=== PATIENT | female | born 1975 | race Caucasian/White ===

== ENCOUNTER 2019-07-20 12:30 | Day surgery (SDC) | payer BC, SELFPAY ==
[2019-07-17 14:02] VITALS: BMI 49.1
--- NOTE | ~2019-07-20 | XR_ITS ---
EXAMINATION: XR chest port-a-cath/central DATE: 07/20/2019 14:44 INDICATION: Port placement. TECHNIQUE: A single frontal view of the chest was obtained. COMPARISON: Chest 2 views 02/02/2019 FINDINGS: There is mild elevation of right hemidiaphragm. There is mild atelectasis at right lung bas e. No pleural effusion or pneumothorax. The heart size is normal. There is a right internal jugular p ort with tip in superior vena cava. IMPRESSION: 1. Port tip in superior vena cava. 2. Mild elevation of right hemidiaphragm with mild atelectasis at right lung base. Reviewed, dictated and finalized at location B. STER HAND IMPRESSION: 1. Port tip in superior vena cava. 2. Mild elevation of right hemidiaphragm with mild atelectasis at right lung ba se.
--- NOTE | ~2019-07-20 | XR_ITS ---
EXAMINATION: XR fl guide central line place DATE: 07/20/2019 14:16 INDICATION: Port placement. TECHNIQUE: 2 fluoroscopic intraoperative views of the chest were obtained. I was not present. Fluoros copy exposure time was 28 seconds. COMPARISON: Chest 2 views 02/02/2019 FINDINGS: There is a right internal jugular port with tip in superior vena cava. IMPRESSION: 1. Port tip in superior vena cava. Reviewed, dictated and finalized at location B. RITY CONTROL ROOM OFFICER
--- NOTE | 2019-07-20 11:03 | WPDANESEPPF ---
Anes - Initial Pre Proc Eval Procedure: Operation Date: 07/20/19 12:30 Proposed Procedures p Insertion Port A Cath - Mina Sanon MD Date/Time: 07/20/19 11:03 Surgeon: Mina Sanon MD Pre Op Diagnosis: Melanoma Of Overlapping Sites Patient Data Age: 44 Gender: F Height: 5 ft 1 in Weight: 117.93 kg Allergies Allergy/AdvReac Type Severity Reaction Status Date / Time Penicillins Allergy Unknown Rash Verified 07/17/19 14:03 Sulfa (Sulfonamide Allergy Unknown Rash Verified 07/17/19 14:03 Antibiotics) Home Medications Medication Instructions Recorded Confirmed Type azathioprine 25 mg PO DAILY 07/17/19 07/17/19 History hydroxychloroquine 200 mg PO BID 07/17/19 07/17/19 History triamterene-hydrochlorothiazid 1 tablet PO DAILY 07/17/19 07/17/19 History Patient hx anesthesia problems: none Family hx anesthesia problems: none PMFSH Past Medical History Medical History Morbid obesity (Acute) STAS (obstructive sleep apnea) (Acute) SLE (systemic lupus erythematosus) (Acute) Social History Social History Smoking status: Never smoker Second hand tobacco smoke exposure: No Alcohol intake: current Gender identity (if verbalized by the patient): Female Spiritual care concerns: No Anes - Eval Final PreProcedure Day of Procedure 07/20/19 11:03 Patient weight: morbidly obese Heart: regular rate and rhythm Lungs: clear to auscultation Airway: Mallampati scale class II Neurological: alert and oriented Last oral intake: >/= 8 hours ASA classification: III Emergent: no Anesthetic plan: proceed Anesthesia type and monitoring: general GIVS and standard monitoring Informed Consent: The patient's anesthetic plan and its attendant risks and benefits were discussed with the patient/family/POA. Questions were solicited and answers provided to the satisfaction of the patient/family/POA.
[2019-07-20] MEDS: LACTATED RINGERS 1,000 ML 30 ML IV CONT ×2 (11:04→14:29)
[2019-07-20 11:07] VITALS: BP 110/61; PULSE 86; RESP 18; TEMP 37.1; O2SAT 98
[2019-07-20 12:20] VITALS: TEMP 37.1
[2019-07-20] MEDS: IBUPROFEN IV 800 MG/200 ML 800 MG/200 ML BAG 400 MG IVPB (12:20)
--- NOTE | 2019-07-20 13:00 | PM.HPGS ---
History of Present Illness History of Present Illness Consent: Risks, benefits, and alternatives of a placement of a Port-A-Cath have been discussed and questions answered. Patient agrees to proceed with procedure. Chief complaint: Melanoma Of Overlapping Sites Narrative: Mara Us is a 44 year old female with stage IVB, and 1 M0 stage IIIC malignant melanoma with Breslow thickness of 6 mm along with ulceration status post excision of left upper back lesion in May of 2019. A sentinel lymph node biopsy was done along with a left axillary node dissection. Wide excision margins of 2.5 cm were confirmed. Patient presents now for placement of a Port-A-Cath to be use for adjuvant immunotherapy. Review of Systems Constitutional: Constitutional: Reports no additional constitutional complaints, Reports fatigue and Denies malaise Eyes: Eyes: Denies change in vision and Denies loss of vision ENT: Reports hearing normal, Denies change in voice, Denies dizziness, Denies hoarseness and Denies sore throat Cardiovascular: Cardiovascular: Denies chest pain, Denies diaphoresis, Denies leg edema, Denies palpitations and Denies dyspnea Comments: Patient has known hypertension as taking Dyazide. Respiratory: Respiratory: Denies cough, Denies dyspnea and Denies wheezing Gastrointestinal: Gastrointestinal: Denies hematochezia, Denies change in bowel habits and Denies heartburn Genitourinary: Genitourinary: Denies urinary frequency and Denies urinary incontinence Musculoskeletal: Musculoskeletal: Denies neck pain Comments: Patient has lupus and is taking hydroxychloroquine and azathioprine for this. Integumentary/Breasts: Comments: Patient has occasional crusting skin lesions Patient had the melanoma on her left upper back as noted above in history of present illness. Neurologic: Reports Normal hearing present, Denies confusion, Denies dizziness, Denies loss of vision, Denies memory loss and Denies seizure-like activity Psychiatric: Psychiatric: Denies confusion, Denies depression and Denies memory loss Endocrine: Endocrine: Denies cold intolerance and Reports fatigue Hematologic/Lymphatic: Hematologic/Lymphatic: Denies easy bleeding and Denies easy bruising Allergic/Immunologic: Allergic/Immunologic: Denies wheezing PMFSH Past Medical History Medical History Morbid obesity (Acute) STAS (obstructive sleep apnea) (Acute) SLE (systemic lupus erythematosus) (Acute) Social History Social History Smoking status: Never smoker Second hand tobacco smoke exposure: No Alcohol intake: current Gender identity (if verbalized by the patient): Female Spiritual care concerns: No Meds Home Medications and Allergies Home Medications Medication Instructions Recorded Confirmed Type azathioprine 25 mg PO DAILY 07/17/19 07/17/19 History hydroxychloroquine 200 mg PO BID 07/17/19 07/17/19 History triamterene-hydrochlorothiazid 1 tablet PO DAILY 07/17/19 07/17/19 History Allergies Allergy/AdvReac Type Severity Reaction Status Date / Time Penicillins Allergy Unknown Rash Verified 07/17/19 14:03 Sulfa (Sulfonamide Allergy Unknown Rash Verified 07/17/19 14:03 Antibiotics) Vital Signs Vital Signs - 24 hr 07/20/19 11:07 07/20/19 12:20 Temperature 37.1 C 37.1 C Pulse Rate 86 Respiratory Rate 18 Blood Pressure 110/61 Pulse Oximetry 98 Exam Const: General: cooperative, healthy appearing, no acute distress, well developed and alert; No confused Nutritional Appearance: well nourished Orientation/consciousness: oriented x3 and No confused Limitations: no limitations Other: Obese, BMI 46 HENMT: Head: normal to inspection, normocephalic and atraumatic Ears: hearing grossly normal bilaterally General nose exam: external nose normal Face and sinus: no edema Mouth: Yes oral mucosae normal and Yes lip arcelia
[2019-07-20] MEDS: ceFAZolin 2 GM/D5W 50 ML 2 GM/50 ML BAG IVPB (13:15)
[2019-07-20] MEDS: BUPIVACAINE/EPINEPHRINE 0.5% 30 ML VIAL 20 ML INFILTRATE (13:49)
[2019-07-20] MEDS: HEPARIN SODIUM 5,000 UNITS/ML VIAL 562000 UNITS IRRIGATION (13:52)
[2019-07-20 14:29] VITALS: BP 119/65; PULSE 70; RESP 15
--- NOTE | 2019-07-20 14:30 | PM.PROC ---
Date of procedure: 07/20/19 Pre-op diagnosis: Melanoma Of Overlapping Sites Stage III malignant melanoma of the mid upper back left side Poor peripheral vascular access Post-op diagnosis: same Procedure performed: Placement of Port-A-Cath (right internal jugular approach) Description of procedure: Patient was seen and marked in the pre-op area prior to coming to the OR. Patient was brought to the operating room. She was placed supine on the operating table and general IV sedation was induced. The nurse emergency manager provided oxygen and GIVS sedation. Because of history of obstructive sleep apnea for this patient an LMA was used. Patient's head was carefully turned to the left side while in the supine position and the patient's entire neck and anterior chest on both sides was prepped and draped in the usual sterile fashion. Following this the appropriate time-out was completed confirming procedure and patient. We confirmed that all the needed equipment was present in the room. Following this the ultrasound probe was draped into the field and using the probe we carefully identified the carotid artery and jugular vein on the right neck. I marked the skin directly over the Rt. internal jugular vein. Following this, using the continuous ultrasound guidance, a Cook needle was placed through the skin into this vein. I then was able to draw back good dark blood. Once this was completed a guidewire using a J-tip was advanced through the needle and then the needle and the guidewire cover were withdrawn. C-arm fluoroscopy was used to confirm that the guidewire was nicely in the venous system. Once this was confirmed with the C - arm I preceded on by making the pocket for the port on the patient's anterior right chest approximately 3 centimeters below the clavicle overlying the chest wall. Local anesthetic was infiltrated into the skin where there was a transverse incision marked out. Incision was made and we made a pocket inferior to the incision with just a little dissection superior. The Smart port was tried in the pocket and seemed to fit well. Following this the catheter which had been placed on a tunneling device was tunneled from the port site on the anterior right chest up to the right neck where a small incision had been made with an #11 blade knife. Then the catheter was pulled through so that we would have 15 centimeters to put into the central venous system once the dilation took place. Following this we placed the dilator and sheath over the guidewire in the jugular vein and carefully dilated the tract into the central venous system. The guidewire and dilator were then removed, carefully covering the end of the sheath to prevent air embolus. The end of the catheter which had been cut off straight across and the tip checked was then inserted into the sheath and into the neck. I then carefully pulled the 2 arms of the tear-away sheath away as the first assistant held the catheter in position with a DeBakey forceps. Following this we checked the position of the catheter with C-arm fluoroscopy confirming that the tip seemed to be in the distal superior vena cava near the junction with the right atrium. I felt that it was in good position and so the rest of the catheter was pulled down toward the feet into the port site. We then measured to the appropriate position to cut the catheter to attach it to the port stem. Then the connector sealing device for the catheter port was placed onto the catheter and then the catheter cut to the appropriate length and inserted onto the stem of the port. Then the connector was advanced onto the stem over the catheter sealing it to the port. A single 3- 0 Prolene suture was also used during this to suture the connector to the port and to the underlying musculature. Following this at one other site the port was sutured to the underlying musculature with the 3-0 Proline. Both prior to connecting the catheter to the port and then using a st
[2019-07-20 14:55] VITALS: BP 124/70; PULSE 73; RESP 16
== END 2019-07-20 16:00 | disposition home or self-care (01) ==
PROVIDERS: Visit Provider Surgery
PROC: (CPT 36561; principal; 2019-07-20 12:30)
DX: C43.59 Malignant melanoma of other part of trunk (principal); I87.2 Venous insufficiency (chronic) (peripheral); M32.9 Systemic lupus erythematosus, unspecified; G47.33 Obstructive sleep apnea (adult) (pediatric); E66.01 Morbid (severe) obesity due to excess calories; Z68.42 Body mass index [BMI] 45.0-49.9, adult
CPT/HCPCS: 36561; 77001; C1788; J0690; J1100; J1644; J1741; J2250; J2405; J2704; J3010; J7030; J7120

== ENCOUNTER 2019-10-06 13:04 | Outpatient (CLI) | payer BC, SELFPAY ==
--- NOTE | ~2019-10-06 | US_ITS ---
EXAMINATION: US venous doppler UE EXAM DATE: 10/06/2019 14:50 INDICATION: Left arm swelling. TECHNIQUE: Multiple grayscale, color flow, Doppler sonographic images of the left upper extremity vei ns obtained by technologist. Compression was performed where able. There is no prior study for nicole sloan. FINDINGS: Left upper extremity: Jugular vein: ------------> Normal. Subclavian vein: --------> Normal. Axillary vein:------------> Normal. Brachial vein:-----------> Normal. Basilic vein: ------------> Normal. Cephalic vein: ----------> Normal. Radial vein: ------------> Normal. Ulnar vein: > Normal. IMPRESSION: No deep venous thrombosis of the left upper extremity. Reviewed, dictated and finalized at location A. AND FILLER ASSEMBLER
== END 2019-10-06 13:05 | disposition home or self-care (01) ==
PROVIDERS: PCP Family Medicine; Visit Provider Internal Medicine Hematology & Oncology
DX: M79.89 Other specified soft tissue disorders (principal)
CPT/HCPCS: 93971

== ENCOUNTER 2020-03-29 15:31 | Outpatient (CLI) | payer BC, SELFPAY ==
--- NOTE | ~2020-03-29 | US_ITS ---
EXAMINATION: US venous doppler [facility] DATE: 03/29/2020 16:02 INDICATION: Lower limb swelling. TECHNIQUE: Grayscale ultrasound images without and with compression and Doppler ultrasound images of the bilateral lower extremity veins were obtained. COMPARISON: Ultrasound 02/13/2015 FINDINGS: The visualized portions of right common femoral vein, profunda (deep) femoral vein, femoral vein, pop liteal vein, posterior tibial veins, and greater saphenous vein outflow are patent. The visualized portions of left common femoral vein, profunda femoral vein, femoral vein, popliteal v ein, posterior tibial veins, and greater saphenous vein outflow are patent. IMPRESSION: 1. No deep venous thrombosis. Reviewed, dictated and finalized at location A.
== END 2020-03-29 15:32 | disposition home or self-care (01) ==
PROVIDERS: PCP Family Medicine; Visit Provider Nurse Practitioner Adult Health
DX: R60.0 Localized edema (principal)
CPT/HCPCS: 93970

== ENCOUNTER 2020-08-12 14:44 | Outpatient (CLI) | payer BC, SELFPAY ==
--- NOTE | ~2020-08-12 | XR_ITS ---
XR chest 2V 08/12/2020 15:13 Indication: Malignant melanoma. Hypertension. Procedure: PA and lateral views of the chest Comparison: Comparison to multiple prior studies sequentially, with oldest reviewed study dated 05/31. Findings: Small right pleural effusion. Portacatheter tip in the SVC. Right basilar atelectasis. Elev ated right diaphragm appears chronic. No pneumothorax. No acute osseous abnormality. There are surgic al clips overlying the left axilla. Impression: 1: Right basilar atelectasis with small right effusion. 2: Chronic elevation of the right diaphragm, consider phrenic nerve paralysis. Reviewed, dictated and finalized at location A. NCE AND ADMINISTRATION MANAGER Impression: 1: Right basilar atelectasis with small right effusion. 2: Chronic elevation of the right diaphragm, consider phrenic nerve paralysis.
[2020-08-12 15:37] LABS: Basophils Percent Auto 0.7 % (0.2-1.2); Eosinophils Absolute Auto 0.1 K/mm3 (0-0.3); Eosinophils Percent Auto 1.7 % (0-4.4); Hematocrit 40.1 % (37.0-47.0); Hemoglobin 12.4 g/dL (12.0-15.0); Immature Granulocyte Absolute 0.04 K/mm3 (0.00-0.031); Immature Granulocyte Percent A 0.9 % (0-0.5); Lymphocytes Absolute Auto 0.82 K/mm3 (0.9-3.2); Lymphocytes Percent Auto 19.3 % (18.3-44.2); Mean Corpuscular HGB Conc 30.9 g/dl (32-36); Mean Corpuscular Hemoglobin 24.8 pg (26-34); Mean Corpuscular Volume 80.4 fl (80-100); Mean Platelet Volume 10.4 fl (7.4-10.4); Monocytes Absolute Auto 0.5 K/mm3 (0.1-0.6); Monocytes Percent Auto 10.6 % (2.6-8.5); Neutrophils Absolute Auto 2.8 K/mm3 (1.3-6.7); Neutrophils Percent Auto 66.8 % (45.5-73.1); Platelet Count Result 182 k/mm3 (150-375); Red Blood Count 4.99 M/mm3 (4.2-5.4); Red Cell Distribution Width 17.8 % (11.5-14.5); White Blood Count 4.2 K/mm3 (4.5-10.0)
[2020-08-12 16:32] LABS: Lactate Dehydrogenase 344 U/L (313-618)
[2020-08-13 17:11] LABS: Alanine Aminotransferase 15 U/L (4-35); Albumin Level 3.3 g/dL (3.5-5.1); Alkaline Phosphatase 79 U/L (38-126); Anion Gap 5 mmol/L (8-16); Aspartate Amino Transferase 20 U/L (14-36); Bilirubin,Total 0.2 mg/dL (0.2-1.3); Blood Urea Nitrogen 17 mg/dL (7-17); Calcium 8.6 mg/dL (8.4-10.2); Carbon Dioxide 30 mmol/L (22-30); Chloride 105 mmol/L (98-107); Estimated Glomerular Filt Rate > 60; Glucose 133 mg/dL (65-105); Potassium 3.7 mmol/L (3.4-5.0); Sodium 140 mmol/L (137-145)
== END 2020-08-12 14:45 | disposition home or self-care (01) ==
LOC: ANHIMG 14:53
PROVIDERS: PCP Family Medicine; Visit Provider Internal Medicine Hematology & Oncology
DX: C43.8 Malignant melanoma of overlapping sites of skin (principal); R91.8 Other nonspecific abnormal finding of lung field
CPT/HCPCS: 36415; 71046; 80053; 83615; 85025

== ENCOUNTER 2021-01-10 15:31 | Outpatient (CLI) | payer BC, SELFPAY ==
--- NOTE | ~2021-01-10 | US_ITS ---
EXAMINATION: US venous doppler [facility] DATE: 01/10/2021 16:00 INDICATION: Left lower limb pain. TECHNIQUE: Grayscale ultrasound images without and with compression and Doppler ultrasound images of the left lower extremity veins were obtained. COMPARISON: Ultrasound 03/29/2020 FINDINGS: The visualized portions of left common femoral vein, profunda (deep) femoral vein, femoral vein, popl iteal vein, peroneal veins, posterior tibial veins, and greater saphenous vein outflow are patent. IMPRESSION: 1. No deep venous thrombosis. Reviewed, dictated and finalized at location B.
== END 2021-01-10 15:32 | disposition home or self-care (01) ==
PROVIDERS: PCP Family Medicine; Visit Provider Family Medicine
DX: M79.605 Pain in left leg (principal); M79.89 Other specified soft tissue disorders
CPT/HCPCS: 93971

== ENCOUNTER 2021-01-11 07:25 | Outpatient (CLI) | payer BC, SELFPAY ==
[2021-01-11 08:16] LABS: Basophils Percent Auto 0.8 % (0.2-1.2); Eosinophils Absolute Auto 0.1 K/mm3 (0-0.3); Eosinophils Percent Auto 2.8 % (0-4.4); Hemoglobin 12.7 g/dL (12.0-15.0); Immature Granulocyte Absolute 0.02 K/mm3 (0.00-0.031); Immature Granulocyte Percent A 0.5 % (0-0.5); Lymphocytes Absolute Auto 0.66 K/mm3 (0.9-3.2); Mean Corpuscular HGB Conc 30.2 g/dl (32-36); Mean Corpuscular Hemoglobin 24.9 pg (26-34); Mean Corpuscular Volume 82.2 fl (80-100); Mean Platelet Volume 10.4 fl (7.4-10.4); Monocytes Absolute Auto 0.5 K/mm3 (0.1-0.6); Monocytes Percent Auto 11.6 % (2.6-8.5); Neutrophils Absolute Auto 2.6 K/mm3 (1.3-6.7); Neutrophils Percent Auto 67.3 % (45.5-73.1); Platelet Count Result 222 k/mm3 (150-375); Red Blood Count 5.11 M/mm3 (4.2-5.4); Red Cell Distribution Width 16.2 % (11.5-14.5); White Blood Count 3.9 K/mm3 (4.5-10.0)
[2021-01-11 08:26] LABS: Alanine Aminotransferase 22 U/L (4-35); Alkaline Phosphatase 85 U/L (38-126); Anion Gap 2 mmol/L (8-16); Aspartate Amino Transferase 28 U/L (14-36); Bilirubin,Total 0.5 mg/dL (0.2-1.3); Blood Urea Nitrogen 24 mg/dL (7-17); Calcium 9.1 mg/dL (8.4-10.2); Carbon Dioxide 39 mmol/L (22-30); Chloride 98 mmol/L (98-107); Estimated Glomerular Filt Rate > 60; Glucose 114 mg/dL (65-105); Potassium 3.9 mmol/L (3.4-5.0); Sodium 139 mmol/L (137-145)
[2021-01-11 08:35] LABS: NT Pro B Type Natriuretic Pept 37 pg/mL (5-100)
== END 2021-01-11 07:26 | disposition home or self-care (01) ==
PROVIDERS: PCP Family Medicine; Visit Provider Nurse Practitioner
DX: R60.9 Edema, unspecified (principal)
CPT/HCPCS: 36415; 80053; 83880; 85025

== ENCOUNTER 2021-02-26 07:10 | Outpatient (CLI) | payer BC, SELFPAY ==
--- NOTE | ~2021-02-26 | XR_ITS ---
EXAMINATION: XR chest 2V DATE: 02/26/2021 07:35 INDICATION: Port-A-Cath assessment TECHNIQUE: PA and lateral views of the chest are obtained. COMPARISON: 08/12/2020, 07/20/2019 FINDINGS: The lungs are free of acute opacities. There is no pleural effusion or pneumothorax. The ca rdiomediastinal silhouette is normal. There is moderate thoracic spondylosis. A right internal jugula r Port-A-Cath ends with its tip at the superior cavoatrial junction. The hub of the port slightly rot ated in the port pocket when compared to the port insertion radiograph from 2019. Surgical clips are noted in the left axilla. IMPRESSION: 1. No acute cardiopulmonary abnormality. 2. Slight rotation of the port hub in the port pocket when compared to the insertion radiograph from 2019. Reviewed, dictated and finalized at location B. IMPRESSION: 1. No acute cardiopulmonary abnormality. 2. Slight rotation of the port hub in the port pocket when compared to the inse rtion radiograph from 2019.
== END 2021-02-26 07:11 | disposition home or self-care (01) ==
PROVIDERS: PCP Family Medicine; Visit Provider Internal Medicine Hematology & Oncology
DX: C43.8 Malignant melanoma of overlapping sites of skin (principal); M47.814 Spondylosis without myelopathy or radiculopathy, thoracic region
CPT/HCPCS: 71046

== ENCOUNTER 2021-03-19 08:22 | Outpatient (CLI) | payer BC, SELFPAY ==
[2021-03-19 09:31] LABS: Basophils Percent Auto 0.9 % (0.2-1.2); Eosinophils Absolute Auto 0.1 K/mm3 (0-0.3); Eosinophils Percent Auto 3.7 % (0-4.4); Hematocrit 41.2 % (37.0-47.0); Hemoglobin 12.3 g/dL (12.0-15.0); Immature Granulocyte Absolute 0.01 K/mm3 (0.00-0.031); Immature Granulocyte Percent A 0.3 % (0-0.5); Lymphocytes Absolute Auto 0.69 K/mm3 (0.9-3.2); Lymphocytes Percent Auto 21.4 % (18.3-44.2); Mean Corpuscular HGB Conc 29.9 g/dl (32-36); Mean Corpuscular Hemoglobin 25.6 pg (26-34); Mean Corpuscular Volume 85.7 fl (80-100); Mean Platelet Volume 10.3 fl (7.4-10.4); Monocytes Absolute Auto 0.4 K/mm3 (0.1-0.6); Monocytes Percent Auto 12.4 % (2.6-8.5); Neutrophils Percent Auto 61.3 % (45.5-73.1); Platelet Count Result 219 k/mm3 (150-375); Red Blood Count 4.81 M/mm3 (4.2-5.4); Red Cell Distribution Width 15.7 % (11.5-14.5); White Blood Count 3.2 K/mm3 (4.5-10.0)
[2021-03-19 09:40] LABS: INR 0.9; Prothrombin Time 12.4 Seconds (11.1-14.7)
[2021-03-19 09:41] LABS: Partial Thromboplastin Time 28.6 SECONDS (22.3-36.8)
[2021-03-19 09:43] LABS: Anion Gap 5 mmol/L (8-16); Blood Urea Nitrogen 13 mg/dL (7-17); Calcium 8.6 mg/dL (8.4-10.2); Carbon Dioxide 32 mmol/L (22-30); Chloride 103 mmol/L (98-107); Estimated Glomerular Filt Rate > 60; Glucose 99 mg/dL (65-110); Potassium 4.4 mmol/L (3.4-5.0); Sodium 140 mmol/L (137-145)
== END 2021-03-19 08:23 | disposition home or self-care (01) ==
LOC: ANHSURGERY 08:26
PROVIDERS: PCP Family Medicine; Visit Provider Surgery
DX: Z01.818 Encounter for other preprocedural examination (principal)
CPT/HCPCS: 36415; 80048; 85025; 85610; 85730

== ENCOUNTER 2021-03-21 01:36 | Day surgery (SDC) | payer BC, SELFPAY ==
[2021-03-18 09:13] VITALS: BMI 47.6
[2021-03-21 08:37] VITALS: BP 156/92; PULSE 76; RESP 22; TEMP 36.3; O2SAT 96
[2021-03-21] MEDS: LACTATED RINGERS 1,000 ML 30 ML IV CONT (09:40)
--- NOTE | 2021-03-21 09:48 | WPDANESEPPF ---
Anes - Initial Pre Proc Eval Procedure: Operation Date: 03/21/21 10:30 Proposed Procedures p Removal Silva Cath - Mina Sanon MD Date/Time: 03/21/21 09:48 Surgeon: Mina Sanon MD Pre Op Diagnosis: malignant melanoma overlapping sites Patient Data Age: 45 Gender: F Height: 1.57 m Weight: 133.8 kg Last Vital Signs Temp 36.3 C L 03/21/21 08:37 Pulse 76 03/21/21 08:37 Resp 22 H 03/21/21 08:37 BP 156/92 H 03/21/21 08:37 Pulse Ox 96 03/21/21 08:37 Allergies Allergy/AdvReac Type Severity Reaction Status Date / Time Penicillins Allergy Unknown Rash Verified 03/21/21 09:18 Sulfa (Sulfonamide Allergy Unknown Rash Verified 03/21/21 09:18 Antibiotics) Home Medications Medication Instructions Recorded Confirmed Type hydroxychloroquine 200 mg PO BID 07/17/19 03/21/21 History triamterene-hydrochlorothiazid 1 tablet PO DAILY 07/17/19 03/21/21 History ferrous sulfate 325 mg (65 mg 325 mg PO BID 01/10/21 03/21/21 History iron) tablet cyanocobalamin (vitamin B-12) 1,000 mcg PO DAILY 03/18/21 03/18/21 History [Vitamin B-12] Patient hx anesthesia problems: none Family hx anesthesia problems: none PMFSH Past Medical History Medical History Essential (primary) hypertension Malignant melanoma of upper back (~05/2019) Melanoma 2019 STAS (obstructive sleep apnea) SLE (systemic lupus erythematosus) Surgical History Surgical History History of skin surgery melanoma - 06/22/2019 Hx of section (~2000) [place] teeth removed (~1989) Social History Social History Smoking status: Never smoker Second hand tobacco smoke exposure: No Alcohol intake: current Alcohol use details: Just every once in awhile Substance use: never Substance use type: does not use Living arrangements: with family Gender identity (if verbalized by the patient): Female Sexual Orientation (if Verbalized by the Patient): Straight or Heterosexual Spiritual care concerns: No Anes - Eval Final PreProcedure Day of Procedure 03/21/21 09:48 Patient weight: morbidly obese Heart: regular rate and rhythm Lungs: clear to auscultation Airway: Mallampati scale class II Neurological: alert and oriented Last oral intake: >/= 8 hours ASA classification: III Emergent: no Anesthetic plan: proceed Anesthesia type and monitoring: general GIVS and standard monitoring Informed Consent: The patient's anesthetic plan and its attendant risks and benefits were discussed with the patient/family/POA. Questions were solicited and answers provided to the satisfaction of the patient/family/POA.
--- NOTE | 2021-03-21 09:57 | WPDHPUPDATE1 ---
History and Physical Update Update Date/Time: 03/21/21 09:57 History and Physical has been reviewed, including an updated exam of the patient. There are NO changes in the patient's condition. Risks, benefits, and alternatives have been discussed and questions answered. Patient agrees to proceed with procedure.
--- NOTE | 2021-03-21 09:58 | PM.HPGS ---
History of Present Illness History of Present Illness Consent: Risks, benefits, and alternatives of removal of a Port-A-Cath have been discussed and questions answered. Patient agrees to proceed with procedure. Chief complaint: malignant melanoma overlapping sites Narrative: Mara Us is a 45 year old white female who has a history of a melanoma on her back. She subsequently underwent some type of infusion therapy. Dr. Mcalin is her primary medical oncologist. He is approved for her to have her port removed at this time. The risks benefits possible complications of this including bleeding infection have been described she seems understand wished to proceed. Although we could do it under local anesthetic she wishes to have some IV sedation at the time of removal. Review of Systems Constitutional: Constitutional: Reports no additional constitutional complaints, Reports fatigue and Denies malaise Eyes: Eyes: Denies change in vision and Denies loss of vision ENT: Reports Normal hearing present, Denies change in voice, Denies dizziness, Denies hoarseness and Denies sore throat Cardiovascular: Cardiovascular: Denies chest pain, Denies leg edema and Denies dyspnea Respiratory: Respiratory: Denies cough, Denies dyspnea and Denies wheezing Gastrointestinal: Gastrointestinal: Denies hematochezia, Denies change in bowel habits and Denies heartburn Genitourinary: Genitourinary: Denies urinary frequency and Denies urinary incontinence Neurologic: Reports Normal hearing present, Denies confusion, Denies dizziness, Denies loss of vision, Denies memory loss and Denies seizure-like activity Psychiatric: Psychiatric: Denies confusion, Denies depression and Denies memory loss Endocrine: Endocrine: Denies cold intolerance and Reports fatigue Hematologic/Lymphatic: Hematologic/Lymphatic: Denies easy bleeding and Denies easy bruising Allergic/Immunologic: Allergic/Immunologic: Denies wheezing PMFSH Past Medical History Medical History (Updated 03/21/21 @ 10:08 by Mina Sanon MD) Essential (primary) hypertension (Unknown) Malignant melanoma of upper back (~05/2019) Melanoma 2019 STAS (obstructive sleep apnea) SLE (systemic lupus erythematosus) (Unknown) Surgical History Surgical History History of skin surgery melanoma - 06/22/2019 Hx of section (~2000) [place] teeth removed (~1989) Social History Social History Smoking status: Never smoker Second hand tobacco smoke exposure: No Alcohol intake: current Alcohol use details: Just every once in awhile Substance use: never Substance use type: does not use Living arrangements: with family Gender identity (if verbalized by the patient): Female Sexual Orientation (if Verbalized by the Patient): Straight or Heterosexual Spiritual care concerns: No Meds Home Medications and Allergies Home Medications Medication Instructions Recorded Confirmed Type hydroxychloroquine 200 mg PO BID 07/17/19 03/21/21 History triamterene-hydrochlorothiazid 1 tablet PO DAILY 07/17/19 03/21/21 History ferrous sulfate 325 mg (65 mg 325 mg PO BID 01/10/21 03/21/21 History iron) tablet cyanocobalamin (vitamin B-12) 1,000 mcg PO DAILY 03/18/21 03/18/21 History [Vitamin B-12] Allergies Allergy/AdvReac Type Severity Reaction Status Date / Time Penicillins Allergy Unknown Rash Verified 03/21/21 09:18 Sulfa (Sulfonamide Allergy Unknown Rash Verified 03/21/21 09:18 Antibiotics) Vital Signs Vital Signs - 24 hr 03/21/21 08:37 Temperature 36.3 C L Pulse Rate 76 Respiratory Rate 22 H Blood Pressure 156/92 H Pulse Oximetry 96 Exam Const: General: cooperative, healthy appearing, no acute distress, well developed and alert; No confusion Nutritional Appearance: well nourished Orientation/consciousness: patient oriented x3 and N
[2021-03-21] MEDS: LIDO 2%/EPINEPHRINE 1:100,000 20 ML VIAL 9 ML INFILTRATE (10:51)
[2021-03-21 11:03] VITALS: BP 112/68; PULSE 80; RESP 14; O2SAT 93
--- NOTE | 2021-03-21 11:22 | P.OP_ITS ---
Procedure Note - Detailed Date of Procedure 03/21/21 Pre-op Diagnosis malignant melanoma overlapping sites Indwelling Port-A-Cath Post-op Diagnosis same Procedure Performed Removal of Silva-cath Surgeon Mina Sanon MD Assisted Living Executive Director none Anesthesia MAC and local (2% Xylocaine with Epi.) Indications Patient has had a Port-A-Cath in for chemotherapy in the past. Now no longer in use. Plant to remove under local anesthetic. Findings unremarkable smart port and catheter without clot on the end. Description of Procedure Prior to the procedure the patient was seen in the holding area and the area of proposed surgery was marked. All questions were answered and the patient wished to proceed with removal of the Port-A-Cath. The patient was brought to the operating room and placed supine. The entire right neck, chest, and shoulder were prepped with chlorhexidine. The area was draped off. Time-out was performed confirming patient and site of surgery. Following this a 15 blade knife was used to make incision directly on the scar from the previous port placement. This was done after infiltrating local anesthetic into the area of and inferior to the scar and into the area of the pocket containing the port to some degree using 1% xylocaine with epinephrine. Following this we carefully dissected down to the junction of the port and catheter. Bovie cautery with needle-tip was used to carefully incise the capsule around the port and free up the scar tissue around the junction of the port and catheter. Two Prolene sutures that were holding the port to the underlying fascia were carefully excised with a 15 blade knife and mosquito hemostats. Following this the port was brought up and out of the pocket. Then watching the patient's respirations I carefully removed the catheter in one smooth pull while applying pressure in the lower right neck area at the catheter exit site as the patient was breathing out. Pressure was held for 1 minute. I used Bovie cautery on some the subcutaneous tissues as we waited for good clotting. Again hemostasis was checked in the wound using Bovie cautery for superficial hemostasis in the subcutaneous tissues. Following this closure was obtained with 2 layers. I used buried subcutaneous sutures of 3-0 Vicryl in the subcutaneous layer followed by a running subcuticular closure of 4-0 Monocryl on the skin. Patient tolerated the procedure well. Estimated blood loss was 3 cc Sponge, needle, and instrument counts were correct at the end the procedure and patient was taken to the outpatient recovery area in good condition. Implants none Estimated Blood Loss 3 Drains No Packing No Pathology none sent Complications No immediate complications Condition stable Disposition same day
[2021-03-21 11:30] VITALS: BP 126/70; PULSE 73; RESP 16; O2SAT 94
[2021-03-21 12:00] VITALS: BP 142/77; PULSE 72; RESP 16; O2SAT 94
[2021-03-21 12:30] VITALS: BP 137/83; PULSE 86; RESP 16; O2SAT 94
== END 2021-03-21 12:34 | disposition home or self-care (01) ==
PROVIDERS: PCP Family Medicine; Visit Provider Surgery
PROC: (CPT 36589; principal; 2021-03-21 10:30)
DX: Z45.2 Encounter for adjustment and management of vascular access device (principal); Z85.820 Personal history of malignant melanoma of skin; I10 Essential (primary) hypertension; G47.33 Obstructive sleep apnea (adult) (pediatric); J45.909 Unspecified asthma, uncomplicated; R06.02 Shortness of breath; M32.9 Systemic lupus erythematosus, unspecified; E66.01 Morbid (severe) obesity due to excess calories; Z68.43 Body mass index [BMI] 50.0-59.9, adult
CPT/HCPCS: 36590; 36415; 80048; 85025; 85610; 85730; J2704; J7120

== ENCOUNTER 2021-10-20 13:08 | Inpatient (IN) | payer BC, SELFPAY ==
[2021-10-20] VITALS (24 sets, daily range): BP systolic 155–195; BP diastolic 78–125; PULSE 73–99; RESP 18–24; TEMP 36.8–37.1; O2SAT 81–98
--- NOTE | ~2021-10-20 | CT_ITS ---
EXAMINATION: CTA chest PE protocol DATE: 10/20/2021 18:57 INDICATION: Shortness of breath, COVID 19 TECHNIQUE: Computed tomography angiography (CTA) of the chest was performed with 100 mL Omnipaque-350 intravenous contrast timed to evaluate the pulmonary arteries. Coronal maximum intensity projection 3D-reconstructions were created by the technologist. The dose-length product (DLP) was 859.28 mGy-cm. Automated exposure control and iterative reconstruction technique were employed. COMPARISON: 02/06/2015 FINDINGS: The pulmonary arteries are well-opacified. No pulmonary embolism is identified. There are p atchy bilateral groundglass opacities of the lungs. There are small pleural effusions with a small am ount of fluid in the fissures. No pneumothorax is identified. No pathologically enlarged thoracic lym ph nodes are identified. The heart size is normal. There is moderate thoracic spondylosis. Calcified thyroid nodules measure up to 1.8 cm. IMPRESSION: 1. No pulmonary embolus identified. 2. Patchy groundglass opacities of the lungs which could reflect pneumonia and/or pulmonary edema. 3. Small pleural effusions. 4. Calcified thyroid nodules. Consider nonemergent thyroid ultrasound for risk stratification. Reviewed, dictated and finalized at location F. BUILDER IMPRESSION: 1. No pulmonary embolus identified. 2. Patchy groundglass opacities of the lungs which could reflect pneumonia and/ or pulmonary edema. 3. Small pleural effusions. 4. Calcified thyroid nodules. Consider nonemergent thyroid ultrasound for risk stratification.
--- NOTE | ~2021-10-20 | US_ITS ---
EXAMINATION:US venous doppler LE BI INDICATION:Leg edema TECHNIQUE: Multiple grayscale, color flow and Doppler images of the right and left lower extremity de ep venous systems were obtained and reviewed. COMPARISON:01/10/2021 FINDINGS: The common femoral, superficial femoral and popliteal veins demonstrate normal respiratory variation, augmentation and compressibility. Color flow is also seen within the posterior tibial, pe roneal, greater saphenous and profunda veins. IMPRESSION: 1: No lower extremity deep venous thrombosis. Reviewed, dictated and finalized at location B. OLL TECHNICIAN
--- NOTE | ~2021-10-20 | XR_ITS ---
EXAMINATION: XR chest 1V portable INDICATION: Cough, fever, shortness of breath TECHNIQUE: Portable AP chest at 1609 hours COMPARISON: 02/26/2021 FINDINGS: A right internal jugular Port-A-Cath has been removed. The heart size is upper limits of no rmal for technique. Diffuse interstitial and airspace opacities are present. There is no pleural effu ramonita or pneumothorax. There is chronic elevation of the right hemidiaphragm. IMPRESSION: 1. Diffuse interstitial and airspace opacities, consistent with pneumonia and/or pulmonary edema and/ or atelectasis. Reviewed, dictated and finalized at location F. WARE SUPPORT SPECIALIST IMPRESSION: 1. Diffuse interstitial and airspace opacities, consistent with pneumonia and/o r pulmonary edema and/or atelectasis.
--- NOTE | 2021-10-20 16:00 | ECG_ITS ---
Measurements Intervals [place] Rate: 69 P: 24 MS: 159 QRS: 22 QRSD: 81 T: 46 QT: 388 QTc: 416 Interpretive Statements SINUS RHYTHM BASELINE ARTIFACT- I, II, III, AVF, V3-V6 NORMAL ECG Electronically Signed On 10-20-2021 17:08:28 THERAPY TEACHER by Jerrod Vasquez D.O.
--- NOTE | 2021-10-20 16:33 | ED.SOB ---
HPI - SOB/Dyspnea General Chief Complaint: Shortness of Breath/Dyspnea Stated Complaint: shortness of breath Time Seen by Provider: 10/20/21 16:00 Source: RN notes reviewed History of Present Illness HPI Narrative: Patient presents emergency department from home for shortness of breath. Patient states that symptoms began approximately 4 days ago with a cough and a low-grade fever she states that she took it at home test for Covid today that came back positive she states that she was feeling more short of breath today so she came to the emergency department for further evaluation she denies any chest pain abdominal pain nausea vomiting or any other symptoms Related Data Home Medications Medication Instructions Recorded Confirmed hydroxychloroquine 200 mg PO BID 07/17/19 04/17/21 ferrous sulfate 325 mg (65 mg 325 mg PO BID 01/10/21 04/17/21 iron) tablet cyanocobalamin (vitamin B-12) 1,000 mcg PO DAILY 03/18/21 04/17/21 [Vitamin B-12] Allergies Allergy/AdvReac Type Severity Reaction Status Date / Time Penicillins Allergy Unknown Rash Verified 04/17/21 15:14 Sulfa (Sulfonamide Allergy Unknown Rash Verified 04/17/21 15:14 Antibiotics) Review of Systems Review of Systems: Gen.: Low-grade fever ENT: Denies congestion Respiratory: See HPI CV: Denies chest pain or palpitations GI: Denies abdominal pain nausea, emesis or diarrhea Musculoskeletal: Denies back pain or muscle pain Neuro: Denies numbness, tingling, weakness or focal weakness Skin: Denies rash Except as documented, all other systems reviewed and negative PMF Past Medical History Medical History Essential (primary) hypertension (Unknown) Malignant melanoma of upper back (~05/2019) Melanoma 2019 STAS (obstructive sleep apnea) SLE (systemic lupus erythematosus) (Unknown) Surgical History Surgical History (Updated 04/17/21 @ 15:16 by Izabella Paz) History of removal of Port-a-Cath 2020 History of skin surgery melanoma - 06/22/2019 Hx of section (~2000) [place] teeth removed (~1989) Social History Social History Smoking status: Never smoker Second hand tobacco smoke exposure: No Alcohol intake: current Alcohol use details: Just every once in awhile Substance use: never Substance use type: does not use Gender identity (if verbalized by the patient): Female Sexual Orientation (if Verbalized by the Patient): Straight or Heterosexual Spiritual care concerns: No Exam Narrative: APPEARANCE: No acute distress, nontoxic, resting in bed EYES: EOMI HEENT: Normocephalic, atraumatic, OMM RESPIRATORY: No respiratory distress Clear to auscultation bilaterally with no rhonchi wheezing or rales. CARDIOVASCULAR: Regular rate and rhythm without murmurs rubs or gallops. ABDOMINAL: Soft, nontender, nondistended, no rebound or guarding MUSCULOSKELETAl: Moves all extremities. No clubbing, cyanosis or edema. NEURO: Awake and alert. Following commands, speech normal, no focal deficits SKIN:: Warm, dry. No rashes lesions or abrasions PSYCHIATRIC: Normal affect/mood, Course Course Emergency Course: Patient with walking pulse ox in ED with oxygen saturations dropping down to 86 will admit at this time Discussed Dr. Prabhakar presentation work-up agrees with admission at this time request patient started on remdesivir also request antibiotics started Discussed with patient and family results of workup and diagnosis. Discussed need for admission. Patient and family understand and agree to current treatment plan Vital Signs Vital signs: Vital Signs Temperature 98.3 F 10/20/21 13:17 Pulse Rate 87 10/20/21 13:17 Respiratory Rate 22 H 10/20/21 13:17 Blood Pressure 186/106 H 10/20/21 13:17 Pulse Oximetry 94 10/20/21 13:17 Temperature 98.2 F 10/20/21 16:00 Pulse Rate 77 10/20/21 16:46 Respiratory
[2021-10-20 17:08] LABS: Basophils Percent Auto 0.4 % (0.2-1.2); Eosinophils Absolute Auto 0.1 K/mm3 (0-0.3); Eosinophils Percent Auto 2.1 % (0-4.4); Hematocrit 44.2 % (37.0-47.0); Hemoglobin 13.4 g/dL (12.0-15.0); Immature Granulocyte Absolute 0.02 K/mm3 (0.00-0.031); Immature Granulocyte Percent A 0.4 % (0-0.5); Lymphocytes Absolute Auto 0.75 K/mm3 (0.9-3.2); Lymphocytes Percent Auto 14.4 % (18.3-44.2); Mean Corpuscular HGB Conc 30.3 g/dl (32-36); Mean Corpuscular Volume 85.8 fl (80-100); Mean Platelet Volume 10.3 fl (7.4-10.4); Monocytes Absolute Auto 0.4 K/mm3 (0.1-0.6); Monocytes Percent Auto 7.1 % (2.6-8.5); Neutrophils Absolute Auto 3.9 K/mm3 (1.3-6.7); Neutrophils Percent Auto 75.6 % (45.5-73.1); Platelet Count Result 199 k/mm3 (150-375); Red Blood Count 5.15 M/mm3 (4.2-5.4); Red Cell Distribution Width 14.6 % (11.5-14.5); White Blood Count 5.2 K/mm3 (4.5-10.0)
[2021-10-20 17:20] LABS: Partial Thromboplastin Time 28.8 SECONDS (22.3-36.8); Prothrombin Time 12.8 Seconds (11.1-14.7)
[2021-10-20 17:21] LABS: Alanine Aminotransferase 40 U/L (4-35); Albumin Level 3.8 g/dL (3.5-5.1); Alkaline Phosphatase 106 U/L (38-126); Anion Gap 7 mmol/L (8-16); Aspartate Amino Transferase 39 U/L (14-36); Bilirubin,Total 0.8 mg/dL (0.2-1.3); Blood Urea Nitrogen 14 mg/dL (7-17); CRP 6.3 mg/dL (<1.0); Calcium 8.4 mg/dL (8.4-10.2); Carbon Dioxide 28 mmol/L (22-30); Chloride 105 mmol/L (98-107); Estimated CRCL calculation 103 ml/min; Estimated Glomerular Filt Rate > 60; Glucose 96 mg/dL (65-110); Lactate Dehydrogenase 449 U/L (313-618); Potassium 3.7 mmol/L (3.4-5.0); Sodium 140 mmol/L (137-145)
[2021-10-20 17:23] LABS: D Dimer 0.91 ug/mL (<0.48)
[2021-10-20] MEDS: ALBUTEROL SULFATE (*SP) AEROSOL 1 PUFF 2 PUFF INHALATION (18:10)
[2021-10-20] MEDS: ALBUTEROL SULFATE (*SP) INHALER 1 PUFF (18:10)
--- NOTE | 2021-10-20 18:34 | PC.NURSE ---
pt. unable to provide urine sample due to voiding already. states she will consent to not being . CT contacted.
--- NOTE | 2021-10-20 19:17 | PM.IMHP ---
H&P: HPI History of Present Illness Date/Time: 10/20/21 19:17 Chief Complaint: Shortness of breath Narrative: This is a 46-year-old female with past medical history significant for morbid obesity, obstructive sleep apnea, SLE, melanoma, hypertension. Patient presented to the emergency room due to shortness of breath, cough ,body ,aches and pains, chills, fevers, rigors, for the last 3 days or so patient decided to test for COVID with with home COVID kit and tested positive. Upon arrival to the emergency room patient was found to be saturating in the low 80% and was placed on 1 L by nasal cannula of oxygen and her oxygen saturation remained in the high 90s. Preliminary workup was significant for CT PE protocol was negative for acute pulmonary embolism but did show ground-glass opacity. Patient is being admitted for further evaluation management and treatment. Review of Systems Review of Systems: Shortness of breath, body. Tested positive for COVID with home kit as Constitutional: Constitutional: Reports body ache(s), Reports chills, Reports fever(s) and Reports malaise Eyes: Eyes: Denies change in vision ENT: Denies dysphagia, Denies vertigo, Denies nasal congestion, Denies nasal discharge, Denies nasal obstruction and Denies odynophagia Cardiovascular: Cardiovascular: Denies claudication, Denies leg edema, Denies radiating jaw, neck or arm pain, Denies palpitations, Denies dyspnea on exertion, Denies orthopnea and Denies paroxysmal nocturnal dyspnea Respiratory: Respiratory: Reports dyspnea Gastrointestinal: Gastrointestinal: Denies abdominal pain, Denies nausea and Denies vomiting Genitourinary: Genitourinary: Denies dysuria Musculoskeletal: Musculoskeletal: Reports myalgias Integumentary/Breasts: Skin/Breast: Denies rash Neurologic: Denies focal weakness and Denies Sensory deficit (Neuro) Psychiatric: Psychiatric: Reports no additional psychiatric complaints and Reports as per HPI Endocrine: Endocrine: Denies cold intolerance, Denies flushing, Denies heat intolerance, Denies polyphagia, Denies polydipsia and Denies palpitations Hematologic/Lymphatic: Hematologic/Lymphatic: Reports no additional hematologic/lymphatic complaints and Reports as per HPI Allergic/Immunologic: Allergic/Immunologic: Reports no additional allergic/immunologic complaints and Reports as per HPI [facility] Past Medical History Medical History Essential (primary) hypertension (Unknown) Malignant melanoma of upper back (~05/2019) Melanoma 2019 STAS (obstructive sleep apnea) SLE (systemic lupus erythematosus) (Unknown) Surgical History Surgical History (Updated 04/17/21 @ 15:16 by Izabella Paz) History of removal of Port-a-Cath 2020 History of skin surgery melanoma - 06/22/2019 Hx of section (~2000) [place] teeth removed (~1989) Social History Social History Smoking status: Never smoker Second hand tobacco smoke exposure: No Alcohol intake: current Alcohol use details: Just every once in awhile Substance use: never Substance use type: does not use Gender identity (if verbalized by the patient): Female Sexual Orientation (if Verbalized by the Patient): Straight or Heterosexual Spiritual care concerns: No Meds Home Medications and Allergies Home Medications Medication Instructions Recorded Confirmed Type hydroxychloroquine 200 mg PO BID 07/17/19 10/20/21 History ferrous sulfate 325 mg (65 mg 325 mg PO BID 01/10/21 10/20/21 History iron) tablet cyanocobalamin (vitamin B-12) 1,000 mcg PO DAILY 03/18/21 10/20/21 History [Vitamin B-12] triamterene 37.5 1 tablet PO DAILY #30 tablet 10/17/21 10/20/21 Rx mg-hydrochlorothiazide 25 mg tablet Allergies Allergy/AdvReac Type Severity Reaction Status Date / Time Penicillins Allergy Unknown Rash Verified 04/17/21 15:14 Sulfa (Sulfona
[2021-10-20 19:27] LABS: EDCOVIDSCREEN Positive (Negative)
--- NOTE | 2021-10-20 19:54 | PC.NURSE ---
1915 ambulated in eric with pulse ox and spo2 dropped to 86%
[2021-10-20] MEDS: REMDESIVIR 200 MG/NS 250 ML 200 MG/250 ML BAG 250 MG IVPB (21:39)
[2021-10-21] VITALS (7 sets, daily range): BP systolic 145–151; BP diastolic 74–90; PULSE 72–74; RESP 18–20; TEMP 36.3–36.5; O2SAT 90–96; BMI 53.2
[2021-10-21 07:13] LABS: Basophils Percent Auto 0.2 % (0.2-1.2); Hematocrit 42.8 % (37.0-47.0); Hemoglobin 13.3 g/dL (12.0-15.0); Immature Granulocyte Absolute 0.03 K/mm3 (0.00-0.031); Immature Granulocyte Percent A 0.6 % (0-0.5); Lymphocytes Absolute Auto 0.33 K/mm3 (0.9-3.2); Lymphocytes Percent Auto 6.4 % (18.3-44.2); Mean Corpuscular HGB Conc 31.1 g/dl (32-36); Mean Corpuscular Hemoglobin 26.2 pg (26-34); Mean Corpuscular Volume 84.3 fl (80-100); Monocytes Absolute Auto 0.2 K/mm3 (0.1-0.6); Monocytes Percent Auto 2.9 % (2.6-8.5); Neutrophils Absolute Auto 4.6 K/mm3 (1.3-6.7); Neutrophils Percent Auto 89.9 % (45.5-73.1); Platelet Count Result 238 k/mm3 (150-375); Red Blood Count 5.08 M/mm3 (4.2-5.4); Red Cell Distribution Width 14.4 % (11.5-14.5); White Blood Count 5.1 K/mm3 (4.5-10.0)
[2021-10-21 07:25] LABS: Prothrombin Time 13.2 Seconds (11.1-14.7)
[2021-10-21 07:29] LABS: Alanine Aminotransferase 34 U/L (4-35); Anion Gap 6 mmol/L (8-16); Blood Urea Nitrogen 11 mg/dL (7-17); Calcium 8.8 mg/dL (8.4-10.2); Carbon Dioxide 27 mmol/L (22-30); Chloride 106 mmol/L (98-107); Estimated CRCL calculation 103 ml/min; Estimated Glomerular Filt Rate > 60; Glucose 122 mg/dL (65-110); Potassium 4.7 mmol/L (3.4-5.0); Sodium 139 mmol/L (137-145)
[2021-10-21] MEDS: ALBUTEROL SULFATE (*SP) INHALER 2 PUFF INHALATION ×2 (09:11→20:42)
[2021-10-21] MEDS: ENOXAPARIN 40 MG/0.4 ML SYRINGE SUB-Q (09:16)
[2021-10-21] MEDS: TRIAMTERENE 37.5 MG/HCTZ 25 MG (MAXZIDE) TABLET 1 TAB PO (09:18)
[2021-10-21] MEDS: CYANOCOBALAMIN 1,000 MCG TABLET 1000 MCG PO (09:18)
[2021-10-21] MEDS: FERROUS SULFATE 324 MG TABLET PO ×2 (09:18→16:45)
[2021-10-21] MEDS: HYDROXYCHLOROQUINE SULFATE 200 MG TABLET PO ×2 (09:18→17:00)
--- NOTE | 2021-10-21 13:08 | PM.IMPN ---
Progress Note: A&P Assessment and Plan (1) Acute respiratory failure with hypoxia: Code(s): J96.01 - Acute respiratory failure with hypoxia Status: Acute Assessment and Plan: Secondary to COVID-19. CXR on presentation showed diffuse interstitial airspace opacities consistent with COVID pneumonia CTA was negative for PE There is evidence of possible pulmonary edema on imaging. Patient does have mild LE edema. Will check BNP and administer Lasix 20 mg IV one time and reassess Currently requiring 2 L per nasal cannula Wean to goal O2 sats 92% or above (2) COVID-19: Code(s): U07.1 - COVID-19 Status: Acute Assessment and Plan: Patient had positive home test on 10/20 with symptom onset 3 days prior. Confirmatory PCR at this facility positive on 10/20 Continue isolation precautions Dexamethasone and remdesivir #2 Started on Levaquin for coverage of secondary bacterial pneumonia Supplemental O2 as needed. Currently requiring 2 L Monitor inflammatory markers Patient has completed COVID-19 vaccination and booster (3) STAS (obstructive sleep apnea): Code(s): G47.33 - Obstructive sleep apnea (adult) (pediatric) Status: Acute Assessment and Plan: No longer on CPAP Reports she has not used in >1 year since her machine has not been working She needs to follow up with PCP to obtain a new CPAP machine (4) SLE (systemic lupus erythematosus): Onset Date: Unknown Code(s): M32.9 - Systemic lupus erythematosus, unspecified Status: Acute Assessment and Plan: No acute issues at this time Established with afloat cryptologic manager Dr. Ashly Florez Will hold hydroxychloroquine in light of active infection (5) Hypertension: Code(s): I10 - Essential (primary) hypertension Status: Acute Assessment and Plan: Blood pressure reviewed and has been slightly elevated. Last BP 145/74 Continue triamterene-HCTZ Monitor blood pressure trends Subjective Date/time seen: 10/21/21 13:08 Interval history: Date of service: 10/21/2021 Mara Us is a 46-year-old female with a history of hypertension, malignant melanoma, STAS, SLE who is seen in follow-up for COVID-19 pneumonia. She is feeling okay today. Feels her shortness of breath has slightly improved. She does have occasional cough with clear sputum production. She does feel somewhat weak and fatigued. Appetite has been good. No changes in her sense of taste or smell. Denies fevers or chills. No dizziness or lightheadedness. Denies headaches or body aches. No dysuria or hematuria. Reports regular bowel movements. Denies abdominal pain, nausea, vomiting, or diarrhea. She endorses some edema of her lower extremities. She states this comes and goes, and she does notice that it happens when she is on her menstrual cycle. Reports that she is currently on her menstrual cycle at this time. Review of Systems Review of Systems: All systems reviewed & are unremarkable except as noted in HPI and below Exam Narrative: General: Obese, well-appearing 46 year-old female, sitting up in bed, comfortable, NARD Neuro: awake, alert and oriented x4, speech clear, no focal neuro deficits noted HEENMT: normocephalic, atraumatic, EOMI, sclerae anicteric, moist oral mucosa Respiratory: Diminished breath sounds bilaterally, no crackles, rhonchi, or wheezes, nonlabored breathing Cardio: regular rate, regular rhythm with S1-S2 Abdomen: nondistended, normoactive bowel sounds, soft, nontender to palpation Extremities: 1+ edema, no erythema, or tenderness to palpation, DP pulses 2+ bilaterally Skin: no rashes or lesions, warm and dry Psych: appropriate mood and affect, judgment and insight intact Objective Data Vital Signs Vital Signs: Vital Signs - 24 hr 10/20/21 13:17 10/20/21 15:19 10/20/21 16:00 Temperature 98.3 F 98.2 F Pulse Rate 87 83 98 Respiratory Rate 22 H 24 H 20 Blood Pre
[2021-10-21] MEDS: FUROSEMIDE INJ 40 MG/4 ML VIAL 20 MG IV PUSH (13:39)
[2021-10-21 15:56] LABS: NT Pro B Type Natriuretic Pept 1360 pg/mL (5-100)
[2021-10-21] MEDS: REMDESIVIR 100 MG/NS 250 ML 100 MG/250 ML BAG 250 MG IVPB (22:35)
[2021-10-22] VITALS (10 sets, daily range): BP systolic 123–164; BP diastolic 69–92; PULSE 76–110; RESP 18–20; TEMP 35.6–37.1; O2SAT 92–99
--- NOTE | 2021-10-22 | ECHO_ITS ---
Patient Info Name: Mara Us Age: 46 years : 1975 Gender: Female Ht: 61 in Wt: 281 lbs BSA: 2.43 m2 HR: 71 bpm BP: 164 / 71 mmHg Heart Rhythm: Sinus Rhythm Exam Date: 10/22/2021 4:02 PM Exam Location: [facility] Exam Room: [facility] Patient Status: Inpatient Admit Date: 10/22/2021 Staff Ordering Physician: Nay Ramirez PA-C Maintenance Worker Municipal: Kristen Nava RDCS Attending Provider: Nay Ramirez PA-C Referring Physician: James ESPOSITO; Exam Type: CA echo dop color flow w con Study Info Indications - pulm edema Complete two-dimensional, color flow and Doppler transthoracic echocardiogram is performed with contrast to opacify the left ventricle and to improve the deliniation of the left ventricle endocardial borders. Contrast/Agitated Saline Contrast/Ag. Saline: Definity Amount: 2.00 ml Existing IV Access: Yes IV Access Condition: patent with no signs of infiltration Summary 1. Left ventricular chamber dimension is normal. 2. Left ventricular systolic function is normal, estimated at 55-60%. 3. There is trace mitral valve regurgitation. 4. Technically difficult study requiring definity contrast injection. Left Ventricle Left ventricular chamber dimension is normal. Left ventricular systolic function is normal, estimated at 55-60%. The left ventricular diastolic function is normal. Right Ventricle Right ventricular chamber dimension is normal. Left Atria Left atrial chamber dimension is normal. Right Atria Right atrial chamber dimension is normal. Aortic Valve The aortic valve is normal. Pulmonic Valve The pulmonic valve is not well visualized. Mitral Valve The mitral valve has normal leaflets. There is trace mitral valve regurgitation. Tricuspid Valve The tricuspid valve leaflets are normal. Pericardium/Pleural The pericardium appears normal. Aorta The aortic root size at the sinus of Valsalva is normal. Left Ventricular Outflow Tract Name Value Normal LVOT 2D LVOT Diameter 2.00 cm LVOT Doppler LVOT Peak Gradient 5 mmHg LVOT Mean Gradient 3 mmHg LVOT VTI 24.77 cm LVOT VTI/AV VTI Ratio 0.70 LVOT Stroke Volume 77.62 ml LVOT CO 16.32 l/min LVOT CI 6.72 L/min/m2 Pulmonic Valve Name Value Normal PV Doppler PV Peak Gradient 3 mmHg Mitral Valve Name Value Normal MV Doppler MV De
[2021-10-22] MEDS: ALBUTEROL SULFATE (*SP) INHALER 2 PUFF INHALATION ×4 (01:52→19:51)
[2021-10-22 06:34] LABS: Hematocrit 42.3 % (37.0-47.0); Mean Corpuscular HGB Conc 30.7 g/dl (32-36); Mean Corpuscular Hemoglobin 26.5 pg (26-34); Mean Corpuscular Volume 86.2 fl (80-100); Mean Platelet Volume 10.5 fl (7.4-10.4); Platelet Count Result 239 k/mm3 (150-375); Red Blood Count 4.91 M/mm3 (4.2-5.4); Red Cell Distribution Width 14.6 % (11.5-14.5)
[2021-10-22 06:42] LABS: INR 1.1; Prothrombin Time 14.2 Seconds (11.1-14.7)
[2021-10-22 06:58] LABS: Alanine Aminotransferase 28 U/L (4-35); Albumin Level 3.9 g/dL (3.5-5.1); Alkaline Phosphatase 86 U/L (38-126); Anion Gap 7 mmol/L (8-16); Aspartate Amino Transferase 27 U/L (14-36); Bilirubin,Total 0.5 mg/dL (0.2-1.3); Blood Urea Nitrogen 16 mg/dL (7-17); CRP 3.2 mg/dL (<1.0); Calcium 8.8 mg/dL (8.4-10.2); Carbon Dioxide 33 mmol/L (22-30); Chloride 99 mmol/L (98-107); Estimated CRCL calculation 108 ml/min; Estimated Glomerular Filt Rate > 60; Glucose 120 mg/dL (65-110); Lactate Dehydrogenase 410 U/L (313-618); Potassium 3.9 mmol/L (3.4-5.0); Sodium 139 mmol/L (137-145)
[2021-10-22] MEDS: TRIAMTERENE 37.5 MG/HCTZ 25 MG (MAXZIDE) TABLET 1 TAB PO (09:21)
[2021-10-22] MEDS: CYANOCOBALAMIN 1,000 MCG TABLET 1000 MCG PO (09:22)
[2021-10-22] MEDS: ENOXAPARIN 40 MG/0.4 ML SYRINGE SUB-Q (09:22)
[2021-10-22] MEDS: HYDROXYCHLOROQUINE SULFATE 200 MG TABLET PO ×2 (09:22→16:35)
[2021-10-22] MEDS: FERROUS SULFATE 324 MG TABLET PO ×2 (09:22→16:35)
--- NOTE | 2021-10-22 14:30 | PM.IMPN ---
Progress Note: A&P Assessment and Plan (1) Acute respiratory failure with hypoxia: Code(s): J96.01 - Acute respiratory failure with hypoxia Status: Acute Assessment and Plan: Secondary to COVID-19. CXR on presentation showed diffuse interstitial airspace opacities consistent with COVID pneumonia CTA was negative for PE There is evidence of possible pulmonary edema on imaging. Patient does have mild LE edema. BNP was 1360. Gave Lasix 20 mg IV one time. Will check echo. Currently off of oxygen (2) COVID-19: Code(s): U07.1 - COVID-19 Status: Acute Assessment and Plan: Patient had positive home test on 10/20 with symptom onset 3 days prior. Confirmatory PCR at this facility positive on 10/20 Continue isolation precautions Dexamethasone and remdesivir #3 Started on Levaquin for coverage of secondary bacterial pneumonia Supplemental O2 as needed. Weaned off of oxygen today. Monitor inflammatory markers Patient has completed COVID-19 vaccination and booster (3) STAS (obstructive sleep apnea): Code(s): G47.33 - Obstructive sleep apnea (adult) (pediatric) Status: Acute Assessment and Plan: No longer on CPAP Reports she has not used in >1 year since her machine has not been working She needs to follow up with PCP to obtain a new CPAP machine (4) SLE (systemic lupus erythematosus): Onset Date: Unknown Code(s): M32.9 - Systemic lupus erythematosus, unspecified Status: Acute Assessment and Plan: No acute issues at this time Established with tax services intern Dr. Ashly Florez Will hold hydroxychloroquine in light of active infection (5) Hypertension: Code(s): I10 - Essential (primary) hypertension Status: Acute Assessment and Plan: Blood pressure reviewed and has been slightly elevated. Continue triamterene-HCTZ Monitor blood pressure trends Subjective Date/time seen: 10/22/21 14:30 Interval history: Mara Us is a 46-year-old female with a history of hypertension, malignant melanoma, STAS, SLE who is seen in follow-up for COVID-19 pneumonia. Pt states her sob is improving. She was weaned off of oxygen today. She denies cp. Does have some BLE edema which she states is chronic and tends to happen when she is on her menstrual cycle. No calf pain. Review of Systems Review of Systems: All systems reviewed & are unremarkable except as noted in HPI and below Exam Narrative: General: Obese, NAD, non toxic Neuro: awake, alert and oriented x4, speech clear, no focal neuro deficits noted HEENMT: normocephalic, atraumatic, sclerae anicteric, moist oral mucosa Respiratory: Diminished breath sounds bilaterally, no crackles, rhonchi, or wheezes, nonlabored breathing Cardio: regular rate, regular rhythm with S1-S2 Abdomen: nondistended, normoactive bowel sounds, soft, nontender to palpation Extremities: 1+ edema, no erythema, or tenderness to palpation, DP pulses 2+ bilaterally Skin: no rashes or lesions, warm and dry Psych: appropriate mood and affect, judgment and insight intact Objective Data Vital Signs Vital Signs: Vital Signs - 24 hr 10/21/21 16:57 10/21/21 20:00 10/21/21 20:52 Temperature 97.5 F L Pulse Rate 72 Respiratory Rate 18 Blood Pressure 151/90 H Pulse Oximetry 95 95 90 10/22/21 00:00 10/22/21 04:00 10/22/21 08:00 Temperature 96.0 F L 97.3 F L 98.7 F Pulse Rate 91 86 78 Respiratory Rate 18 18 18 Blood Pressure 142/74 H 151/88 H 164/71 H Pulse Oximetry 97 98 92 10/22/21 08:44 10/22/21 09:31 10/22/21 11:35 Temperature Pulse Rate Respiratory Rate Blood Pressure Pulse Oximetry 95 95 99 10/22/21 12:32 Temperature Pulse Rate Respiratory Rate Blood Pressure Pulse Oximetry 99 Intake/Output Intake/Output: Intake & Output 10/19/21 10/20/21 10/21/21 10/22/21 23:59 23:59 23:59 23:59 Intake
[2021-10-22] MEDS: PERFLUTREN LIPID MICROSPHERES 1.5 ML VIAL DILUTED TO 10 ML TOTAL VOLUME IV PUSH (16:14)
--- NOTE | 2021-10-22 16:15 | IVDEFINITY ---
Prior to administration of IV Definity the patient was educated on the risks and benefits of the imaging enhancing agent including potential adverse side effects. The patient verbalized understanding. Allergies were verified. No exclusion criteria were identified and at least one of the following inclusion criteria were met: 1) physician request, 2) patient technically difficult to image (per the [place] [employer] guidelines of two or more segments not discernable within the apical view), or 3) questionable left ventricular function. ?
[2021-10-22] MEDS: REMDESIVIR 100 MG/NS 250 ML 100 MG/250 ML BAG 250 MG IVPB (22:00)
[2021-10-23] VITALS (11 sets, daily range): BP systolic 112–152; BP diastolic 56–82; PULSE 67–108; RESP 18–20; TEMP 35.8–36.5; O2SAT 92–97
[2021-10-23] MEDS: ALBUTEROL SULFATE (*SP) INHALER 2 PUFF INHALATION ×4 (02:23→20:05)
[2021-10-23 06:54] LABS: Basophils Percent Auto 0.3 % (0.2-1.2); Eosinophils Percent Auto 0.3 % (0-4.4); Hematocrit 44.7 % (37.0-47.0); Hemoglobin 14.2 g/dL (12.0-15.0); Immature Granulocyte Absolute 0.06 K/mm3 (0.00-0.031); Immature Granulocyte Percent A 0.8 % (0-0.5); Lymphocytes Percent Auto 10.1 % (18.3-44.2); Mean Corpuscular HGB Conc 31.8 g/dl (32-36); Mean Corpuscular Hemoglobin 26.1 pg (26-34); Mean Platelet Volume 10.8 fl (7.4-10.4); Monocytes Absolute Auto 0.6 K/mm3 (0.1-0.6); Monocytes Percent Auto 7.9 % (2.6-8.5); Neutrophils Absolute Auto 6.4 K/mm3 (1.3-6.7); Neutrophils Percent Auto 80.6 % (45.5-73.1); Platelet Count Result 298 k/mm3 (150-375); Red Blood Count 5.45 M/mm3 (4.2-5.4); Red Cell Distribution Width 14.7 % (11.5-14.5)
[2021-10-23 06:57] LABS: Alanine Aminotransferase 27 U/L (4-35); Albumin Level 4.2 g/dL (3.5-5.1); Alkaline Phosphatase 91 U/L (38-126); Anion Gap 10 mmol/L (8-16); Aspartate Amino Transferase 26 U/L (14-36); Bilirubin,Total 0.6 mg/dL (0.2-1.3); Blood Urea Nitrogen 21 mg/dL (7-17); Carbon Dioxide 28 mmol/L (22-30); Chloride 98 mmol/L (98-107); Estimated CRCL calculation 95 ml/min; Estimated Glomerular Filt Rate > 60; Glucose 101 mg/dL (65-110); Sodium 136 mmol/L (137-145)
[2021-10-23 07:03] LABS: INR 1.1; Prothrombin Time 13.9 Seconds (11.1-14.7)
[2021-10-23 08:15] LABS: Glucose Point of Care 82 mg/dl (65-105)
[2021-10-23] MEDS: CYANOCOBALAMIN 1,000 MCG TABLET 1000 MCG PO (09:20)
[2021-10-23] MEDS: HYDROXYCHLOROQUINE SULFATE 200 MG TABLET PO ×2 (09:20→16:51)
[2021-10-23] MEDS: FERROUS SULFATE 324 MG TABLET PO ×2 (09:20→16:51)
[2021-10-23] MEDS: ENOXAPARIN 40 MG/0.4 ML SYRINGE SUB-Q (09:20)
[2021-10-23] MEDS: TRIAMTERENE 37.5 MG/HCTZ 25 MG (MAXZIDE) TABLET 1 TAB PO (09:21)
--- NOTE | 2021-10-23 11:00 | PCRCNOTE ---
HOME O2 EVAL COMPLETE, NO REQUIREMENTS
--- NOTE | 2021-10-23 13:23 | PM.IMPN ---
Progress Note: A&P Assessment and Plan (1) Acute respiratory failure with hypoxia: Code(s): J96.01 - Acute respiratory failure with hypoxia Status: Acute Assessment and Plan: Secondary to COVID-19. CXR on presentation showed diffuse interstitial airspace opacities consistent with COVID pneumonia CTA was negative for PE There is evidence of possible pulmonary edema on imaging. Patient does have mild LE edema. BNP was 1360. Gave Lasix 20 mg IV one time. Echo reviewed, normal EF Currently off of oxygen (2) COVID-19: Code(s): U07.1 - COVID-19 Status: Acute Assessment and Plan: Patient had positive home test on 10/20 with symptom onset 3 days prior. Confirmatory PCR at this facility positive on 10/20 Continue isolation precautions Dexamethasone and remdesivir #4 Started on Levaquin for coverage of secondary bacterial pneumonia Supplemental O2 as needed. Currently on room air Patient has completed COVID-19 vaccination and booster (3) STAS (obstructive sleep apnea): Code(s): G47.33 - Obstructive sleep apnea (adult) (pediatric) Status: Acute Assessment and Plan: No longer on CPAP Reports she has not used in >1 year since her machine has not been working She needs to follow up with PCP to obtain a new CPAP machine (4) SLE (systemic lupus erythematosus): Onset Date: Unknown Code(s): M32.9 - Systemic lupus erythematosus, unspecified Status: Acute Assessment and Plan: No acute issues at this time Established with development administrator Dr. Ashly Florez Will hold hydroxychloroquine in light of active infection (5) Hypertension: Code(s): I10 - Essential (primary) hypertension Status: Acute Assessment and Plan: Blood pressure reviewed and has been slightly elevated. Continue triamterene-HCTZ Monitor blood pressure trends Subjective Date/time seen: 10/23/21 13:23 Interval history: Mara Us is a 46-year-old female with a history of hypertension, malignant melanoma, STAS, SLE who is seen in follow-up for COVID-19 pneumonia. SOB is about the same as yesterday. She is still having productive cough with clear sputum. No chest pain. Still has LE edema. No LE pain. No N/V/abd pain. Review of Systems Review of Systems: All systems reviewed & are unremarkable except as noted in HPI and below Exam Narrative: General: Obese, NAD, non toxic Neuro: awake, alert and oriented x4, speech clear, no focal neuro deficits noted HEENMT: normocephalic, atraumatic, sclerae anicteric, moist oral mucosa Respiratory: Diminished breath sounds bilaterally secondary to body habitus, no crackles, rhonchi, or wheezes, nonlabored breathing Cardio: regular rate, regular rhythm with S1-S2 Abdomen: nondistended, normoactive bowel sounds, soft, nontender to palpation Extremities: 1+ edema, no erythema, or tenderness to palpation, DP pulses 2+ bilaterally Skin: no rashes or lesions, warm and dry Psych: appropriate mood and affect, judgment and insight intact Objective Data Vital Signs Vital Signs: Vital Signs - 24 hr 10/22/21 14:52 10/22/21 20:00 10/23/21 00:00 Temperature 97.7 F 97.1 F L 96.5 F L Pulse Rate 78 110 H 67 Respiratory Rate 18 20 18 Blood Pressure 155/82 H 123/69 152/82 H Pulse Oximetry 94 92 95 10/23/21 02:20 10/23/21 04:00 10/23/21 10:40 Temperature 96.7 F L Pulse Rate 108 H 77 80 Respiratory Rate 20 18 Blood Pressure 146/76 H Pulse Oximetry 96 97 10/23/21 10:45 10/23/21 10:55 Temperature Pulse Rate 102 H 84 Respiratory Rate Blood Pressure Pulse Oximetry 92 96 Intake/Output Intake/Output: Intake & Output 10/20/21 10/21/21 10/22/21 10/23/21 23:59 23:59 23:59 23:59 Intake Total 400 3140 3160 300 Output Total 4501 1450 2100 Balance 400 -1361 1710 -1800 Meds/Results Medications: Active Medications Generic Name D
[2021-10-23] MEDS: REMDESIVIR 100 MG/NS 250 ML 100 MG/250 ML BAG 250 MG IVPB (22:33)
[2021-10-24] MEDS: ALBUTEROL SULFATE (*SP) INHALER 2 PUFF INHALATION ×2 (02:07→08:07)
[2021-10-24 06:42] LABS: Basophils Percent Auto 0.4 % (0.2-1.2); Eosinophils Percent Auto 0.5 % (0-4.4); Hematocrit 46.7 % (37.0-47.0); Hemoglobin 14.6 g/dL (12.0-15.0); Immature Granulocyte Absolute 0.08 K/mm3 (0.00-0.031); Immature Granulocyte Percent A 1.1 % (0-0.5); Lymphocytes Absolute Auto 0.98 K/mm3 (0.9-3.2); Lymphocytes Percent Auto 13.1 % (18.3-44.2); Mean Corpuscular HGB Conc 31.3 g/dl (32-36); Mean Corpuscular Hemoglobin 25.8 pg (26-34); Mean Corpuscular Volume 82.7 fl (80-100); Mean Platelet Volume 10.2 fl (7.4-10.4); Monocytes Absolute Auto 0.8 K/mm3 (0.1-0.6); Monocytes Percent Auto 10.6 % (2.6-8.5); Neutrophils Absolute Auto 5.6 K/mm3 (1.3-6.7); Neutrophils Percent Auto 74.3 % (45.5-73.1); Platelet Count Result 286 k/mm3 (150-375); Red Blood Count 5.65 M/mm3 (4.2-5.4); Red Cell Distribution Width 14.6 % (11.5-14.5); White Blood Count 7.5 K/mm3 (4.5-10.0)
[2021-10-24 06:48] LABS: Alanine Aminotransferase 27 U/L (4-35); Albumin Level 4.1 g/dL (3.5-5.1); Alkaline Phosphatase 85 U/L (38-126); Anion Gap 7 mmol/L (8-16); Aspartate Amino Transferase 26 U/L (14-36); Bilirubin,Total 0.5 mg/dL (0.2-1.3); Blood Urea Nitrogen 27 mg/dL (7-17); Calcium 9.2 mg/dL (8.4-10.2); Carbon Dioxide 32 mmol/L (22-30); Chloride 97 mmol/L (98-107); Estimated CRCL calculation 95 ml/min; Estimated Glomerular Filt Rate > 60; Glucose 89 mg/dL (65-110); INR 1.1; Potassium 4.7 mmol/L (3.4-5.0); Prothrombin Time 13.5 Seconds (11.1-14.7); Sodium 136 mmol/L (137-145)
[2021-10-24 08:00] VITALS: BP 127/81; PULSE 77; RESP 18; TEMP 36.5; O2SAT 97
--- NOTE | 2021-10-24 08:59 | P.DS_ITS ---
DS: Admitting Diagnosis Discharge Date 10/24/21 Admitting Diagnosis covid DS: Discharge Diagnosis Discharge Diagnosis (1) Acute respiratory failure with hypoxia: Code(s): J96.01 - Acute respiratory failure with hypoxia Status: Acute Assessment and Plan: Secondary to COVID-19. * CXR on presentation showed diffuse interstitial airspace opacities consistent with COVID pneumonia * CTA was negative for PE * There is evidence of possible pulmonary edema on imaging. Patient does have mild LE edema. BNP was 1360. Gave Lasix 20 mg IV one time. * Echo reviewed, normal EF * Currently off of oxygen, denies sob * Home O2 study shows no oxygen requirement * stable for discharge home at this time (2) COVID-19: Code(s): U07.1 - COVID-19 Status: Acute Assessment and Plan: Patient had positive home test on 10/20 with symptom onset 3 days prior. Confirmatory PCR at this facility positive on 10/20 * Continue isolation precautions * Dexamethasone and remdesivir * Started on Levaquin for coverage of secondary bacterial pneumonia, will continue this on discharge * Supplemental O2 as needed. * Currently on room air * Patient has completed COVID-19 vaccination and booster (3) STAS (obstructive sleep apnea): Code(s): G47.33 - Obstructive sleep apnea (adult) (pediatric) Status: Acute Assessment and Plan: No longer on CPAP * Reports she has not used in >1 year since her machine has not been working * She needs to follow up with PCP to obtain a new CPAP machine (4) SLE (systemic lupus erythematosus): Onset Date: Unknown Code(s): M32.9 - Systemic lupus erythematosus, unspecified Status: Acute Assessment and Plan: No acute issues at this time * Established with cable assembler and swager Dr. Ashly Florez * Will hold hydroxychloroquine in light of active infection * Will have her restart in 1 week and follow up with her cable assembler and swager (5) Hypertension: Code(s): I10 - Essential (primary) hypertension Status: Acute Assessment and Plan: Blood pressures reviewed and have been slightly elevated. * Continued triamterene-HCTZ * Home BP log and follow up with pcp DS: Summary Hospital Course Reason for hospitalization: Mara Us is a 46-year-old female with a history of hypertension, malignant melanoma, STAS, SLE who is seen in follow-up for COVID-19 pneumonia. Please see HPI for further details. Hospital Course: Please see above for details of hospital course. Status at Discharge Cognitive/behavioral status at discharge: stable Functional status at discharge: independent ambulation Overall status at discharge: patient is progressing back to baseline Time Spent with Patient Time attestation: Total time spent providing and/or coordinating discharge services: 35 Time spent: Greater than 30 minutes Exam Narrative: General: Obese, NAD, non toxic Neuro: awake, alert and oriented x4, speech clear, no focal neuro deficits noted HEENMT: normocephalic, atraumatic, sclerae anicteric, moist oral mucosa Respiratory: Diminished breath sounds bilaterally secondary to body habitus, no crackles, rhonchi, or wheezes, nonlabored breathing Cardio: regular rate, regular rhythm with S1-S2 Abdomen: nondistended, normoactive bowel sounds, soft, nontender to palpation Extremities: 1+ edema, no erythema, or tenderness to palpation, DP pulses 2+ bilaterally
--- NOTE | 2021-10-24 08:59 | PM.DS ---
DS: Admitting Diagnosis Discharge Date 10/24/21 Admitting Diagnosis covid DS: Discharge Diagnosis Discharge Diagnosis (1) Acute respiratory failure with hypoxia: Code(s): J96.01 - Acute respiratory failure with hypoxia Status: Acute Assessment and Plan: Secondary to COVID-19. CXR on presentation showed diffuse interstitial airspace opacities consistent with COVID pneumonia CTA was negative for PE There is evidence of possible pulmonary edema on imaging. Patient does have mild LE edema. BNP was 1360. Gave Lasix 20 mg IV one time. Echo reviewed, normal EF Currently off of oxygen, denies sob Home O2 study shows no oxygen requirement stable for discharge home at this time (2) COVID-19: Code(s): U07.1 - COVID-19 Status: Acute Assessment and Plan: Patient had positive home test on 10/20 with symptom onset 3 days prior. Confirmatory PCR at this facility positive on 10/20 Continue isolation precautions Dexamethasone and remdesivir Started on Levaquin for coverage of secondary bacterial pneumonia, will continue this on discharge Supplemental O2 as needed. Currently on room air Patient has completed COVID-19 vaccination and booster (3) STAS (obstructive sleep apnea): Code(s): G47.33 - Obstructive sleep apnea (adult) (pediatric) Status: Acute Assessment and Plan: No longer on CPAP Reports she has not used in >1 year since her machine has not been working She needs to follow up with PCP to obtain a new CPAP machine (4) SLE (systemic lupus erythematosus): Onset Date: Unknown Code(s): M32.9 - Systemic lupus erythematosus, unspecified Status: Acute Assessment and Plan: No acute issues at this time Established with front end ui developer Dr. Ashly Florez Will hold hydroxychloroquine in light of active infection Will have her restart in 1 week and follow up with her front end ui developer (5) Hypertension: Code(s): I10 - Essential (primary) hypertension Status: Acute Assessment and Plan: Blood pressures reviewed and have been slightly elevated. Continued triamterene-HCTZ Home BP log and follow up with pcp DS: Summary Hospital Course Reason for hospitalization: Mara Us is a 46-year-old female with a history of hypertension, malignant melanoma, STAS, SLE who is seen in follow-up for COVID-19 pneumonia. Please see HPI for further details. Hospital Course: Please see above for details of hospital course. Status at Discharge Cognitive/behavioral status at discharge: stable Functional status at discharge: independent ambulation Overall status at discharge: patient is progressing back to baseline Time Spent with Patient Time attestation: Total time spent providing and/or coordinating discharge services: 35 Time spent: Greater than 30 minutes Exam Narrative: General: Obese, NAD, non toxic Neuro: awake, alert and oriented x4, speech clear, no focal neuro deficits noted HEENMT: normocephalic, atraumatic, sclerae anicteric, moist oral mucosa Respiratory: Diminished breath sounds bilaterally secondary to body habitus, no crackles, rhonchi, or wheezes, nonlabored breathing Cardio: regular rate, regular rhythm with S1-S2 Abdomen: nondistended, normoactive bowel sounds, soft, nontender to palpation Extremities: 1+ edema, no erythema, or tenderness to palpation, DP pulses 2+ bilaterally Skin: no rashes or lesions, warm and dry Psych: appropriate mood and affect, judgment and insight intact DS: Data Data Completed and Pending Labs on day of discharge: Labs from last 24 hours 10/24/21 10/24/21 10/24/21 05:58 05:58 05:58 WBC 7.5 RBC 5.65 H Hgb 14.6 Hct 46.7 MCV 82.7 MCH 25.8 L MCHC 31.3 L RDW 14.6 H Plt Count 286 MPV 10.2 Immature Gran % (Auto) 1.1 H Neut % (Auto) 74.3 H Lymph % (Auto) 13.1 L [place] % (Auto)
[2021-10-24] MEDS: FERROUS SULFATE 324 MG TABLET PO (09:19)
[2021-10-24] MEDS: TRIAMTERENE 37.5 MG/HCTZ 25 MG (MAXZIDE) TABLET 1 TAB PO (09:19)
[2021-10-24] MEDS: HYDROXYCHLOROQUINE SULFATE 200 MG TABLET PO (09:19)
[2021-10-24] MEDS: CYANOCOBALAMIN 1,000 MCG TABLET 1000 MCG PO (09:19)
[2021-10-24] MEDS: ENOXAPARIN 40 MG/0.4 ML SYRINGE SUB-Q (09:20)
== END 2021-10-24 11:50 | disposition home or self-care (01) | DRG 177 ==
LOC: ANHED 19:10 → ANH3MEDSUR 20:26
PROVIDERS: Physician Assistant; Admitting Provider Internal Medicine; Emergency Provider Emergency Medicine; PCP Family Medicine; Visit Provider Physician Assistant
DX: U07.1 COVID-19 (principal); J96.01 Acute respiratory failure with hypoxia; J12.82 Pneumonia due to coronavirus disease 2019; Z68.42 Body mass index [BMI] 45.0-49.9, adult; E66.01 Morbid (severe) obesity due to excess calories; M32.9 Systemic lupus erythematosus, unspecified; G47.33 Obstructive sleep apnea (adult) (pediatric); I10 Essential (primary) hypertension; Z85.820 Personal history of malignant melanoma of skin; Z79.899 Other long term (current) drug therapy; Z88.3 Allergy status to other anti-infective agents
CPT/HCPCS: 36415; 71045; 71275; 80048; 80053; 82728; 82948; 83615; 83880; 84460; 85025; 85027; 85380; 85610; 85730; 86140; 87426; 93005; 93970; 94618; 94640; 96365; 96366; 96368; 96372; 96375; 96376; 99285; A9270; C8929; C9803; G0378; J1100; J1650; J1940; J1956; Q9957; Q9967

== ENCOUNTER 2022-01-15 14:06 | Outpatient (CLI) | payer BC, SELFPAY ==
--- NOTE | ~2022-01-15 | XR_ITS ---
XR chest 2V 01/15/2022 14:31 Indication: Melanoma Procedure: 2 view chest Comparison: Comparison to multiple prior studies sequentially, with oldest reviewed study dated 07/01. Findings: Chronic elevation of the right diaphragm. Heart size normal. No focal air space disease, pu lmonary edema, pleural effusion or suspected pneumothorax. There are surgical clips in the left breas t. Impression: 1: No acute cardiopulmonary disease. Reviewed, dictated and finalized at location B. Impression: 1: No acute cardiopulmonary disease.
== END 2022-01-15 14:07 | disposition home or self-care (01) ==
PROVIDERS: PCP Family Medicine; Visit Provider Nurse Practitioner
DX: C43.9 Malignant melanoma of skin, unspecified (principal)
CPT/HCPCS: 71046

== ENCOUNTER → 2022-02-07 00:06 | Outpatient (CLI) | payer BC, SELFPAY ==
[2022-02-07 11:40] LABS: SARS-CoV-2 RNA PCR Negative
== END ==
PROVIDERS: PCP Nurse Practitioner; Visit Provider Nurse Practitioner
DX: R68.89 Other general symptoms and signs (principal); Z20.822 Contact with and (suspected) exposure to COVID-19
CPT/HCPCS: C9803; U0003; U0005

== ENCOUNTER 2023-03-09 15:58 | Outpatient (CLI) | payer BC, SELFPAY ==
[2023-03-09 16:08] LABS: Basophils Percent Auto 0.6 % (0.2-1.2); Eosinophils Absolute Auto 0.1 K/mm3 (0-0.3); Eosinophils Percent Auto 2.4 % (0-4.4); Hematocrit 41.9 % (37.0-47.0); Immature Granulocyte Absolute 0.02 K/mm3 (0.00-0.031); Immature Granulocyte Percent A 0.4 % (0-0.5); Lymphocytes Absolute Auto 0.91 K/mm3 (0.9-3.2); Lymphocytes Percent Auto 19.6 % (18.3-44.2); Mean Corpuscular Hemoglobin 25.9 pg (26-34); Mean Corpuscular Volume 83.6 fl (80-100); Mean Platelet Volume 10.8 fl (7.4-10.4); Monocytes Absolute Auto 0.5 K/mm3 (0.1-0.6); Monocytes Percent Auto 9.7 % (2.6-8.5); Neutrophils Absolute Auto 3.1 K/mm3 (1.3-6.7); Neutrophils Percent Auto 67.3 % (45.5-73.1); Platelet Count Result 198 k/mm3 (150-375); Red Blood Count 5.01 M/mm3 (4.2-5.4); White Blood Count 4.7 K/mm3 (4.5-10.0)
[2023-03-09 16:34] LABS: Alanine Aminotransferase 31 U/L (6-35); Alkaline Phosphatase 75 U/L (38-126); Anion Gap 2 mmol/L (8-16); Aspartate Amino Transferase 41 U/L (14-36); Bilirubin,Total 0.4 mg/dL (0.2-1.3); Blood Urea Nitrogen 17 mg/dL (7-17); Calcium 8.5 mg/dL (8.4-10.2); Carbon Dioxide 35 mmol/L (22-30); Chloride 99 mmol/L (98-107); Estimated Glomerular Filt Rate > 60; Glucose 97 mg/dL (65-110); Lactate Dehydrogenase 220 U/L (120-246); Potassium 3.5 mmol/L (3.4-5.0); Sodium 136 mmol/L (137-145)
== END 2023-03-09 15:59 | disposition home or self-care (01) ==
LOC: ANHLAB 15:59
PROVIDERS: PCP Nurse Practitioner; Visit Provider Internal Medicine Hematology & Oncology
DX: C43.8 Malignant melanoma of overlapping sites of skin (principal)
CPT/HCPCS: 36415; 80053; 83615; 85025

== ENCOUNTER 2023-03-10 09:23 | Outpatient (CLI) | payer BC, SELFPAY ==
--- NOTE | ~2023-03-10 | XR_ITS ---
Clinical Indication: Malignant melanoma PA and lateral views of the chest: Comparison: 01/15/2022 Findings: Stable chronic blunting of right costophrenic angle. Lungs are otherwise clear. Cardiomedi astinal silhouette is within normal limits. Bones and soft tissues are unremarkable. Impression: Stable chronic appearing blunting of the right costophrenic angle. Otherwise clear lungs. Reviewed, dictated and finalized at location . Impression: Stable chronic appearing blunting of the right costophrenic angle. Otherwise clear lungs.
== END 2023-03-10 09:24 | disposition home or self-care (01) ==
PROVIDERS: PCP Nurse Practitioner; Visit Provider Internal Medicine Hematology & Oncology
DX: C43.8 Malignant melanoma of overlapping sites of skin (principal)
CPT/HCPCS: 71046

== ENCOUNTER 2024-03-24 10:56 | Emergency (ER) | payer MEDICAID, SELFPAY ==
[2024-03-24 11:05] VITALS: BP 153/105; PULSE 113; RESP 24; TEMP 37.1; O2SAT 76
--- NOTE | 2024-03-24 11:10 | ED.EXTPRO ---
HPI - Extremity Problem General Chief complaint: Extremity Problem,Nontraumatic Stated complaint: Leg swelling Time Seen by Provider: 03/24/24 11:10 Source: patient Mode of arrival: ambulatory Limitations: no limitations History of Present Illness HPI Narrative: 48-year-old female with history of lupus presents with complaint of lower extremity edema for the past 6 months. patient reports worsening of swelling, weight gain and shortness of breath. Has a echo scheduled next week. Patient called primary care physician today stating shortness of breath worse. Was told to come to urgent care. Patient denies chest pain. All systems reviewed and negative except as noted above. Related Data Home Medications Medication Instructions Recorded Confirmed hydroxychloroquine 200 mg tablet 200 mg PO BID 07/17/19 03/24/24 cyanocobalamin (vitamin B-12) 1,000 mcg PO DAILY 03/18/21 03/24/24 1,000 mcg tablet (Vitamin B-12) albuterol sulfate 90 mcg/actuation 2 puff inhalation PRN PRN 03/24/24 03/24/24 aerosol inhaler (Proventil HFA) Shortness Of Breath Or Wheezing triamterene 37.5 tablet 03/24/24 03/24/24 mg-hydrochlorothiazide 25 mg tablet Allergies Allergy/AdvReac Type Severity Reaction Status Date / Time Penicillins AdvReac Mild Rash Verified 03/24/24 10:58 Sulfa (Sulfonamide AdvReac Mild Rash Verified 03/24/24 10:58 Antibiotics) Review of Systems Review of Systems: CONSTITUTIONAL: Denies fever, chills, or sweats. EYES: Denies visual changes, redness, or discharge. ENT: Denies rhinorrhea, congestion, sore throat, or otalgia. CARDIOVASCULAR: Denies chest pain, palpitations. Reports edema. RESPIRATORY: Denies cough . Reports dyspnea. GASTROINTESTINAL: Denies abdominal pain, nausea, vomiting, or diarrhea. GENITOURINARY: Denies dysuria or hematuria. SKIN: Denies rash or itching. MUSCULOSKELETAL: Denies back pain, joint pain, or myalgia. NEUROLOGIC: Denies headache, numbness, or weakness. PSYCHIATRIC: Denies anxiety or depression. All other systems reviewed are negative, except as documented in HPI. [facility] Past Medical History Medical History Acute respiratory failure with hypoxia Chronic venous insufficiency of lower extremity COVID-19 Essential (primary) hypertension (Unknown) Lymphedema of both lower extremities Malignant melanoma of upper back (~05/2019) Melanoma 2019 STAS (obstructive sleep apnea) Port-A-Cath in place (~2018) SLE (systemic lupus erythematosus) (Unknown) Surgical History Surgical History History of removal of Port-a-Cath 2020 History of skin surgery melanoma - 06/22/2019 Hx of section (~2000) [place] teeth removed (~1989) Family History Family History Father Hypertension Sibling Lupus Social History Social History Smoking status: Never smoker Second hand tobacco smoke exposure: No Alcohol intake: current Alcohol use details: Just every once in awhile Substance use: never Substance use type: does not use Lack of Transportation: No Lack of Food: Never True Current Housing: I Have Housing Concerned About Future Housing: No Difficulty Paying Gas/Electric Bills: No Difficulty Paying for Meds: No Currently Unemployed: No Education: Associate Degree Difficulty w/ Childcare or Family Care: No Living arrangements: with family Occupation/Education: unemployed Gender identity (if verbalized by the patient): Female Sexual Orientation (if Verbalized by the Patient): Straight or Heterosexual Spiritual care concerns: No Comments At time of signature, agree with nursing past medical, surgical, social and family history. There is no relevant family history pertinent to the presenting complaint. Exam Narrative:
[2024-03-24 11:20] VITALS: PULSE 108; RESP 22; O2SAT 78; O2SAT 93
[2024-03-24 11:22] VITALS: PULSE 92; RESP 18; O2SAT 93
== END 2024-03-24 11:26 | disposition short-term general hospital (02) ==
PROVIDERS: Emergency Provider Nurse Practitioner Family; PCP Family Medicine
DX: R09.02 Hypoxemia (principal); R60.0 Localized edema; I10 Essential (primary) hypertension; M32.9 Systemic lupus erythematosus, unspecified; Z85.820 Personal history of malignant melanoma of skin; Z86.16 Personal history of COVID-19
CPT/HCPCS: 99212; G0463

== ENCOUNTER 2024-03-24 11:42 | Inpatient (IN) | payer MEDICAID, SELFPAY ==
[2024-03-24] VITALS (12 sets, daily range): BP systolic 136–179; BP diastolic 84–103; PULSE 77–107; RESP 14–25; TEMP 36.3–36.6; O2SAT 94–100
--- NOTE | ~2024-03-24 | XR_ITS ---
XR chest 2V 03/24/2024 12:20 Indication: Shortness of breath. Leg swelling. Procedure: AP and lateral views of the chest Comparison: Comparison to multiple prior studies sequentially, with oldest reviewed study dated 02/26. Findings: Cardiomegaly with interstitial edema. No pleural effusion or pneumothorax. No acute osseous abnormality. Elevated right diaphragm. Impression: 1: Cardiomegaly with pulmonary edema. Reviewed, dictated and finalized at location B. Impression: 1: Cardiomegaly with pulmonary edema.
--- NOTE | ~2024-03-24 | CT_ITS ---
EXAMINATION: CTA chest PE protocol DATE: 03/24/2024 14:34 INDICATION: Shortness of breath and hypoxia TECHNIQUE: Computed tomography (CT) pulmonary angiogram of the chest was performed with 100 mL Omnipa que-350 intravenous contrast. Additional 3D reconstructions utilizing coronal maximum intensity proje ction (MIP) were performed. Automated exposure control and iterative reconstruction technique were em ployed. The dose-length product was 1048.38 mGy-cm. COMPARISON: 10/20/2021 FINDINGS: Lung volumes remain small. No pulmonary embolism identified. Sensitivity decreased in some of the arelis e of the smaller peripheral subsegmental pulmonary arteries due to combination of small amount of mot ion artifact, streak artifact and increased quantum mottle related to patient body habitus. Scattered bilateral groundglass opacity in both lungs most smooth septal line thickening at the upper lungs mo st likely related to mild pulmonary edema although differential includes atelectasis or pneumonia. Ve ry small right and trace left pleural effusions. Calcified pulmonary nodule in the region of mild dep endent atelectasis in the posterior sulcus of the right lower lobe which along with a small hepatic c alcification and a few splenic calcifications consistent with old granulomatous disease. Cardiomegaly . No pericardial effusion. Enlargement of the central pulmonary arteries consistent with pulmonary ar terial hypertension. Thoracic aorta is normal in caliber with no dissection. No significant change in mild mediastinal lymphadenopathy which is likely reactive. Multinodular goiter with multiple small n odules and with coarse calcifications on the left.Moderate thoracic spondylosis with chronic mild ant erior wedging of a couple mid thoracic vertebral bodies. IMPRESSION: 1. No pulmonary embolism. 2. Groundglass opacities with some smooth septal line thickening in the bilateral lungs suggesting mi ld pulmonary edema likely incident congestive heart failure given the cardiomegaly. Differential for the groundglass opacities include less likely pneumonia or atelectasis related to the small bilateral lung volumes. 3. Very small right and trace left pleural effusions. Reviewed, dictated and finalized at location A. IMPRESSION: 1. No pulmonary embolism. 2. Groundglass opacities with some smooth septal line thickening in the bilater al lungs suggesting mild pulmonary edema likely incident congestive heart failu re given the cardiomegaly. Differential for the groundglass opacities include l ess likely pneumonia or atelectasis related to the small bilateral lung volumes . 3. Very small right and trace left pleural effusions.
--- NOTE | ~2024-03-24 | XR_ITS ---
XR chest 1V portable 03/25/2024 05:36 Indication: Hypoxia Procedure: AP portable chest Comparison: 03/24/2024 Findings: Mildly elevated right diaphragm. Cardiomegaly. Mild interstitial edema. No pleural effusion . No pneumothorax. Impression: 1: Cardiomegaly with mild interstitial edema. Reviewed, dictated and finalized at location B. Impression: 1: Cardiomegaly with mild interstitial edema.
--- NOTE | ~2024-03-24 | US_ITS ---
EXAMINATION:US venous doppler LE BI INDICATION:Leg swelling TECHNIQUE: Multiple grayscale, color flow and Doppler images of the right and left lower extremity de ep venous systems were obtained and reviewed. Study suboptimal due to patient body habitus. The poste rior tibial and peroneal veins are not visualized. COMPARISON:10/22/2021 FINDINGS: The common femoral, superficial femoral and popliteal veins demonstrate normal respiratory variation, augmentation and compressibility. Color flow is also seen within the greater saphenous an d profunda veins. IMPRESSION: 1: No lower extremity deep venous thrombosis. Reviewed, dictated and finalized at location B.
--- NOTE | 2024-03-24 11:54 | ECG_ITS ---
Test Date: 2024-03-24 11:56:37 Measurements Intervals [place] Rate: 86 P: 39 LA: 148 QRS: 28 QRSD: 83 T: 62 QT: 375 QTc: 451 Interpretive Statements SINUS RHYTHM BASELINE ARTIFACT- I, II, AVR, V5-V6 NORMAL ECG No previous ECG available for comparison Electronically Signed On 03-24-2024 12:44:55 CDT by Jerrod Vasquez D.O.
[2024-03-24 12:15] LABS: Basophils Percent Auto 0.8 % (0.2-1.2); Eosinophils Absolute Auto 0.1 K/mm3 (0-0.3); Eosinophils Percent Auto 2.5 % (0-4.4); Hematocrit 44.3 % (37.0-47.0); Hemoglobin 11.9 g/dL (12.0-15.0); Immature Granulocyte Absolute 0.02 K/mm3 (0.00-0.031); Immature Granulocyte Percent A 0.4 % (0-0.5); Lymphocytes Absolute Auto 0.67 K/mm3 (0.9-3.2); Lymphocytes Percent Auto 12.9 % (18.3-44.2); Mean Corpuscular HGB Conc 26.9 g/dl (32-36); Mean Corpuscular Hemoglobin 21.3 pg (26-34); Mean Corpuscular Volume 79.1 fl (80-100); Mean Platelet Volume 10.6 fl (7.4-10.4); Monocytes Absolute Auto 0.4 K/mm3 (0.1-0.6); Monocytes Percent Auto 6.7 % (2.6-8.5); Neutrophils Percent Auto 76.7 % (45.5-73.1); Platelet Count Result 252 k/mm3 (150-375); White Blood Count 5.2 K/mm3 (4.5-10.0)
[2024-03-24 12:25] LABS: Alanine Aminotransferase 17 U/L (6-35); Albumin Level 3.5 g/dL (3.5-5.1); Alkaline Phosphatase 121 U/L (38-126); Anion Gap 5 mmol/L (4-12); Aspartate Amino Transferase 24 U/L (14-36); Bilirubin,Total 0.7 mg/dL (0.2-1.3); Blood Urea Nitrogen 20 mg/dL (7-17); Calcium 8.1 mg/dL (8.4-10.2); Carbon Dioxide 36 mmol/L (22-30); Chloride 100 mmol/L (98-107); Estimated CRCL calculation 109 ml/min; Estimated Glomerular Filt Rate > 60; Glucose 88 mg/dL (65-110); Potassium 4.3 mmol/L (3.4-5.0); Sodium 141 mmol/L (137-145)
[2024-03-24 12:37] LABS: Hypochromasia 1+; Platelet Estimate Adequate (Adequate); Schistocytes None Seen
[2024-03-24 13:22] LABS: Alveolar/Arterial O2 Gradient 111.8 mmHg; Base Excess ABG 4.1 mEq/l (+/-2.0); Carboxyhemoglobin 1.7 % THb (0-2.0); Device NASAL CANNULA; Fractional Inspired Oxygen 36 %; HCO3 ABG 30.4 mEq/l (22.0-26.0); Methemoglobin ABG 0.2 %THb (0-1.5); Modified Allen's Test Pass; Oxygen Content ABG 17.1 %vol (16.0-22.0); Oxygen Saturation ABG 95.9 % (95.0-100.0); Oxyhemoglobin 94.1 % THb (90.0-100.0); PO2 ABG 83.4 mmHg (80.0-100.0); PO2 FiO2 Ratio Arterial Blood 2.32 %; Site Drawn RIGHT RADIAL; Total Hemoglobin 12.9 g/dL (12.0-18.0); pH ABG 7.377 (7.350-7.450)
[2024-03-24 14:39] LABS: NT Pro B Type Natriuretic Pept 1460 pg/mL (19.9-100); Troponin I < 0.012 ng/mL (0.000-0.034)
--- NOTE | 2024-03-24 14:41 | ED.SOB ---
HPI - SOB/Dyspnea General Chief Complaint: Shortness of Breath/Dyspnea <Chiquis Quiñones PA-C - Last Filed: 03/24/24 17:11> Stated Complaint: SOB <Chiquis Quiñones PA-C - Last Filed: 03/24/24 17:11> Time Seen by Provider: 03/24/24 13:10 <ABA Barrett Last Filed: 03/24/24 17:11> Source: patient <ABA Barrett Last Filed: 03/24/24 17:11> Mode of arrival: ambulatory <ABA Barrett Last Filed: 03/24/24 17:11> Limitations: no limitations <ABA Barrett Last Filed: 03/24/24 17:11> History of Present Illness HPI Narrative: Patient is a 48-year-old female, with PMH of SLE on hydroxychloroquine, STAS, who presents the ED via EMS with report of shortness breath and lower extremity swelling. Patient reports she has had increased swelling in her lower extremities, up to her thighs bilaterally over the last 1 week. She also reports having increased shortness of breath, noting difficulty with ambulation/exertion and lying flat due to difficulty breathing. She denies history of similar symptoms, but states she has required thoracentesis in the past related to her SLE. Patient was seen in urgent care today and noted to be hypoxic with SaO2 in the 70s on room air. EMS was then contacted to bring patient here. Currently on 4 L nasal cannula. Patient denies previous oxygen requirement. Denies previous history of CHF. She denies any chest pain, recent cough or cold symptoms, fevers. <ABA Barrett Last Filed: 03/24/24 17:11> Related Data Home Medications: Home Medications Medication Instructions Recorded Confirmed hydroxychloroquine 200 mg tablet 200 mg PO BID 07/17/19 03/24/24 cyanocobalamin (vitamin B-12) 1,000 mcg PO DAILY 03/18/21 03/24/24 1,000 mcg tablet (Vitamin B-12) albuterol sulfate 90 mcg/actuation 2 puff inhalation PRN PRN 03/24/24 03/24/24 aerosol inhaler (Proventil HFA) Shortness Of Breath Or Wheezing triamterene 37.5 1 tablet PO DAILY 03/24/24 03/24/24 mg-hydrochlorothiazide 25 mg tablet <Chiquis Quiñones PA-C - Last Filed: 03/24/24 17:11> Allergies/Adverse Reactions: Allergies Allergy/AdvReac Type Severity Reaction Status Date / Time Penicillins AdvReac Mild Rash Verified 03/24/24 12:03 Sulfa (Sulfonamide AdvReac Mild Rash Verified 03/24/24 12:03 Antibiotics) <Chiquis Quiñones PA-C - Last Filed: 03/24/24 17:11> Review of Systems Review of Systems: CONSTITUTIONAL: Denies fever, chills, or sweats. ENT: Denies rhinorrhea, congestion, sore throat. CARDIOVASCULAR: See HPI. RESPIRATORY: See HPI. NEUROLOGIC: Denies headache, dizziness, numbness, or weakness. <Chiquis Quiñones PA-C - Last Filed: 03/24/24 17:11> All systems reviewed & are unremarkable except as noted in HPI and below <Chiquis Quiñones PA-C - Last Filed: 03/24/24 17:11> [facility] Past Medical History Medical History: Medical History Acute respiratory failure with hypoxia Chronic venous insufficiency of lower extremity COVID-19 Essential (primary) hypertension (Unknown) Lymphedema of both lower extremities Malignant melanoma of upper back (~05/2019) Melanoma 2019 STAS (obstructive sleep apnea) Port-A-Cath in place (~2018) SLE (systemic lupus erythematosus) (Unknown) <Cihquis Quiñones PA-C - Last Filed: 03/24/24 17:11> Surgical History Surgical History: Surgical History History of removal of Port-a-Cath 2020 History of skin surgery melanoma - 06/22/2019 Hx of section (~2000) [place] teeth removed (~1989) <Chiquis Quiñones PA-C - Last Filed: 03/24/24 17:11> Family History Family History: Family History Father Hypertension Sibling Lupus <Chiquis Álvarez
[2024-03-24] MEDS: FUROSEMIDE INJ 40 MG/4 ML VIAL IV PUSH ×2 (16:02→20:09)
--- NOTE | 2024-03-24 20:53 | PM.IMHP ---
H&P: HPI History of Present Illness Date/Time: 03/24/24 20:53 Chief Complaint: Shortness of breath x1 month Narrative: This is a pleasant 48-year-old female who is accompanied by both her mother and father. She has a PMH morbid obesity, STAS noncompliant with CPAP, chronic venous insufficiency, hypertension, SLE on hydroxychloroquine, history of COVID pneumonia in 2021. She presents to [facility] via EMS with increasing lower extremity edema shortness of breath for the last 1 week. She does not know if she has gained weight but states, probably . She has had difficulty with exertion and lying flat. In the past she required thoracentesis for pleural effusion related to SLE. She otherwise denies fever, chest pain, rhinorrhea, cough, abdominal pain, nausea vomiting or diarrhea. She was noted to be 70s SpO2 on room air and was placed on 4 L nasal cannula. On admission her pH by ABG is 7.37, pCO2 53, bicarb 30.4. Troponin negative. BNP elevated at 1460. Her BNP was elevated in September 2021 as well. At that time a surface echocardiogram was conducted which reported normal EF and left ventricular diastolic dysfunction. At that time she was admitted for COVID pneumonia. She received inpatient Lasix x1 and then was discharged home in stable condition. CTA chest was obtained which did not demonstrate PE. Demonstrated pulmonary edema. Venous Doppler ultrasounds of the bilateral lower extremities negative for DVT. Patient was admitted to telemetry on 03/24/24 for acute hypoxic respiratory failure and acute decompensated heart failure. Review of Systems Review of Systems: All systems reviewed & are unremarkable except as noted in HPI and below (Subjective) [facility] Past Medical History Medical History Acute respiratory failure with hypoxia Chronic venous insufficiency of lower extremity COVID-19 Essential (primary) hypertension (Unknown) Lymphedema of both lower extremities Malignant melanoma of upper back (~05/2019) Melanoma 2019 STAS (obstructive sleep apnea) Port-A-Cath in place (~2018) SLE (systemic lupus erythematosus) (Unknown) Surgical History Surgical History History of removal of Port-a-Cath 2020 History of skin surgery melanoma - 06/22/2019 Hx of section (~2000) [place] teeth removed (~1989) Family History Family History Father Hypertension Sibling Lupus Social History Social History Smoking status: Never smoker Second hand tobacco smoke exposure: No Alcohol intake: current Alcohol use details: Just every once in awhile Substance use: never Substance use type: does not use Do You Feel Safe in your Home?: Yes Lack of Transportation: No Lack of Food: Never True Current Housing: I Have Housing Concerned About Future Housing: No Difficulty Paying Gas/Electric Bills: YES Difficulty Paying for Meds: No Currently Unemployed: No Education: Associate Degree Difficulty w/ Childcare or Family Care: No Living arrangements: with family Occupation/Education: unemployed Gender identity (if verbalized by the patient): Female Sexual Orientation (if Verbalized by the Patient): Straight or Heterosexual Spiritual care concerns: No Meds Home Medications and Allergies Home Medications Medication Instructions Recorded Confirmed Type hydroxychloroquine 200 mg tablet 200 mg PO BID 07/17/19 03/24/24 History cyanocobalamin (vitamin B-12) 1,000 mcg PO DAILY 03/18/21 03/24/24 History 1,000 mcg tablet (Vitamin B-12) albuterol sulfate 90 mcg/actuation 2 puff inhalation PRN PRN 03/24/24 03/24/24 History aerosol inhaler (Proventil HFA) Shortness Of Breath Or Wheezing triamterene 37.5 1 tablet PO DAILY 03/24/24 03/24/24 History mg-hydroch
[2024-03-24] MEDS: HYDROXYCHLOROQUINE SULFATE 200 MG TABLET PO (21:43)
[2024-03-25] VITALS (17 sets, daily range): BP systolic 118–148; BP diastolic 70–85; PULSE 71–118; RESP 12–26; TEMP 36.4–36.9; O2SAT 92–100
[2024-03-25 01:26] LABS: Influenza A QL RT-PCR Negative (Negative); Influenza B QL RT-PCR Negative (Negative); RSV RNA, RT-PCR Negative (Negative); SARS-CoV-2 RNA PCR Negative (Negative)
[2024-03-25 05:17] LABS: Blood Urea Nitrogen 19 mg/dL (7-17); Calcium 8.3 mg/dL (8.4-10.2); Carbon Dioxide > 40 mmol/L (22-30); Chloride 96 mmol/L (98-107); Estimated CRCL calculation 109 ml/min; Estimated Glomerular Filt Rate > 60; Glucose 92 mg/dL (65-110); Sodium 140 mmol/L (137-145)
--- NOTE | 2024-03-25 06:00 | ECHO_ITS ---
Patient Info Name: Mara Us Age: 48 years : 1975 Gender: Female Ht: 64 in Wt: 331 lbs BSA: 2.70 m2 HR: 74 bpm BP: 130 / 82 mmHg Technical Quality: Fair Exam Date: 03/25/2024 10:19 AM Exam Location: Echo Lab Patient Status: Inpatient Admit Date: 03/24/2024 Staff Ordering Physician: Chiquis Quiñones PA-C Commercial Credit Analyst: Collin Rodríguez RDCS Attending Provider: Ignacia Cote MD Referring Physician: Ishmael VIDES; Exam Type: CA echo dop color flow w con Study Info Indications - acute hypoxia - new onset chf Complete two-dimensional, color flow and Doppler transthoracic echocardiogram is performed with contrast to opacify the left ventricle and to improve the deliniation of the left ventricle endocardial borders. Contrast/Agitated Saline Contrast/Ag. Saline: Definity Amount: 3.00 ml Existing IV Access: Yes Summary 1. Definity contrast administered improved wall motion interpretation. 2. Left ventricular chamber dimension is normal. 3. Left ventricular systolic function is normal, estimated at 55-60%. 4. The left ventricular diastolic function is abnormal. 5. E/e' 10 is mildly elevated. 6. There is mild aortic valve sclerosis. 7. There is trace mitral valve regurgitation. 8. There is mild to moderate tricuspid valve regurgitation. 9. No pulmonary hypertension, estimated pulmonary arterial systolic pressure is 38 mmHg. 10. Dilated inferior vena cava with >50% collapse upon inspiration consistent with elevated right atrial pressure, 10 mmHg. Left Ventricle E/e' 10 is mildly elevated. Definity contrast administered improved wall motion interpretation. Left ventricular chamber dimension is normal. Left ventricular systolic function is normal, estimated at 55-60%. The left ventricular diastolic function is abnormal. Right Ventricle Right ventricular chamber dimension is normal. Right ventricular systolic function is normal. Left Atria Left atrial chamber dimension is normal. Right Atria Right atrial chamber dimension is normal. Aortic Valve The aortic valve is trileaflet. There is mild aortic valve sclerosis. There is no aortic valve stenosis. There is no aortic valve regurgitation. Pulmonic Valve There is no pulmonic regurgitation. Mitral Valve There is no mitral valve stenosis. There is trace mitral valve regurgitation. Tricuspid Valve There is mild to moderate tricuspid valve regurgitation. No pulmonary hypertension, estimated pulmonary arterial systolic pressure is 38 mmHg. Pericardium/Pleural There is no pericardial effusion. Inferior Vena Cava Dilated inferior vena cava with >50% collapse upon inspiration consistent with elevated right atrial pressure, 10 mmHg. Aorta The aortic root size at the sinus of Valsalva is normal. Left Ventricular Outflow Tract Name Value Normal LVOT 2D LVOT Diameter 1.97 cm LVOT Doppler LVOT Peak Gradient 6 mmHg LVOT Mean Gradient 4 mmHg LVOT VTI 23.06 cm LVOT VTI/AV VTI Ratio 0.67 LVOT Stroke Volume 69.95 ml LVOT CO
[2024-03-25] MEDS: ENOXAPARIN 40 MG/0.4 ML SYRINGE SUB-Q (08:41)
[2024-03-25] MEDS: HYDROXYCHLOROQUINE SULFATE 200 MG TABLET PO ×2 (08:41→16:35)
[2024-03-25] MEDS: CYANOCOBALAMIN 1,000 MCG TABLET 1000 MCG PO (08:42)
[2024-03-25] MEDS: FUROSEMIDE INJ 40 MG/4 ML VIAL IV PUSH ×2 (11:07→20:14)
[2024-03-25] MEDS: PERFLUTREN LIPID MICROSPHERES 1.5 ML VIAL DILUTED TO 10 ML TOTAL VOLUME IV PUSH (11:13)
--- NOTE | 2024-03-25 11:13 | IVDEFINITY ---
Prior to administration of IV Definity the patient was educated on the risks and benefits of the imaging enhancing agent including potential adverse side effects. The patient verbalized understanding. Allergies were verified. No exclusion criteria were identified and at least one of the following inclusion criteria were met: 1) physician request, 2) patient technically difficult to image (per the [place] [employer] guidelines of two or more segments not discernable within the apical view), or 3) questionable left ventricular function. ?
--- NOTE | 2024-03-25 13:29 | PM.IMPN ---
Progress Note: A&P Assessment and Plan (1) CHF (congestive heart failure): Code(s): I50.9 - Heart failure, unspecified Status: Acute (2) Acute hypoxic respiratory failure: Code(s): J96.01 - Acute respiratory failure with hypoxia Status: Acute (3) Lymphedema of both lower extremities: Code(s): I89.0 - Lymphedema, not elsewhere classified Status: Acute (4) Chronic venous insufficiency of lower extremity: Code(s): I87.2 - Venous insufficiency (chronic) (peripheral) Status: Acute (5) STAS (obstructive sleep apnea): Code(s): G47.33 - Obstructive sleep apnea (adult) (pediatric) Status: Acute (6) Essential (primary) hypertension: Onset Date: Unknown Code(s): I10 - Essential (primary) hypertension Status: Acute (7) SLE (systemic lupus erythematosus): Onset Date: Unknown Code(s): M32.9 - Systemic lupus erythematosus, unspecified Status: Acute (8) Morbid obesity: Onset Date: Unknown Code(s): E66.01 - Morbid (severe) obesity due to excess calories Status: Acute Plan This is a pleasant 48-year-old female who is accompanied by both her mother and father. She has a H morbid obesity, STAS noncompliant with CPAP, chronic venous insufficiency, hypertension, SLE on hydroxychloroquine, history of COVID pneumonia in 2021. She presents to [place] [facility] via EMS with increasing lower extremity edema shortness of breath for the last 1 week. She does not know if she has gained weight but states, probably . She has had difficulty with exertion and lying flat. In the past she required thoracentesis for pleural effusion related to SLE. She otherwise denies fever, chest pain, rhinorrhea, cough, abdominal pain, nausea vomiting or diarrhea. She was noted to be 70s SpO2 on room air and was placed on 4 L nasal cannula. On admission her pH by ABG is 7.37, pCO2 53, bicarb 30.4. Troponin negative. BNP elevated at 1460. Her BNP was elevated in September 2021 as well. At that time a surface echocardiogram was conducted which reported normal EF and left ventricular diastolic dysfunction. At that time she was admitted for COVID pneumonia. She received inpatient Lasix x1 and then was discharged home in stable condition. CTA chest was obtained which did not demonstrate PE. Demonstrated pulmonary edema. Venous Doppler ultrasounds of the bilateral lower extremities negative for DVT. Patient was admitted to telemetry on 03/24/24 for acute hypoxic respiratory failure and acute decompensated heart failure. On admission, patient father and mother are present. Than 15 minutes spent on counseling about morbid obesity and the importance of lifestyle change. Provided counseling on the importance of clearance to CPAP therapy. She and her parents understood and the patient herself amenable to follow through with therapies. Patient lives with her parents since being approximately 1 year ago. She has felt depressed and unmotivated. No suicidal or homicidal ideation. This is not been evaluated in the outpatient setting. Advised follow-up with PCP. Care coordinators consulted to help with therapy referrals and support group. Encouragement and comfort provided. Daily weights, low-sodium diet, strict intake/output. Lasix 40 mg IV b.i.d.. Surface echocardiogram ordered. Wean O2 as tolerated. CHF teaching ordered. March 25: Pending surface echo still. Patient breathing a bit better. Her lower extremity edema is improved. Continue monitoring intake output. Continue Lasix. Chronic Conditions -SLE: Continue hydroxychloroquine -essential hypertension: Monitor blood pressure, hold EMPLOYMENT RECRUITER triamterene-hydrochlorothiazide F/E/N: saline lock IV, replace lytes as needed, cardiac diet. GI prophylaxis: Not indicated DVT prophylaxis: Lovenox 40 mg subQ q.day Lines: Peripheral IV Code Status: Patient wishes to be full code Dispo: Anticipate discharge back
[2024-03-25] MEDS: SPIRONOLACTONE 12.5 MG TABLET PO (14:09)
[2024-03-25] MEDS: EMPAGLIFLOZIN 10 MG TABLET PO (14:09)
[2024-03-26] VITALS (20 sets, daily range): BP systolic 112–163; BP diastolic 64–88; PULSE 72–88; RESP 16–24; TEMP 36.6–36.8; O2SAT 81–100
[2024-03-26 04:46] LABS: Hemoglobin 11.1 g/dL (12.0-15.0); Mean Corpuscular HGB Conc 26.4 g/dl (32-36); Mean Corpuscular Hemoglobin 20.9 pg (26-34); Mean Corpuscular Volume 79.2 fl (80-100); Mean Platelet Volume 11.1 fl (7.4-10.4); Platelet Count Result 243 k/mm3 (150-375); Red Cell Distribution Width 18.2 % (11.5-14.5); White Blood Count 5.7 K/mm3 (4.5-10.0)
[2024-03-26 05:06] LABS: Blood Urea Nitrogen 22 mg/dL (7-17); Calcium 8.2 mg/dL (8.4-10.2); Carbon Dioxide > 40 mmol/L (22-30); Chloride 91 mmol/L (98-107); Estimated CRCL calculation 109 ml/min; Estimated Glomerular Filt Rate > 60; Glucose 90 mg/dL (65-110); Sodium 139 mmol/L (137-145)
[2024-03-26] MEDS: ENOXAPARIN 40 MG/0.4 ML SYRINGE SUB-Q (09:42)
[2024-03-26] MEDS: SPIRONOLACTONE 12.5 MG TABLET PO (09:43)
[2024-03-26] MEDS: HYDROXYCHLOROQUINE SULFATE 200 MG TABLET PO ×2 (09:43→18:04)
[2024-03-26] MEDS: CYANOCOBALAMIN 1,000 MCG TABLET 1000 MCG PO (09:43)
[2024-03-26] MEDS: EMPAGLIFLOZIN 10 MG TABLET PO (09:43)
[2024-03-26] MEDS: FUROSEMIDE INJ 40 MG/4 ML VIAL IV PUSH ×2 (10:01→20:14)
--- NOTE | 2024-03-26 12:44 | PM.IMPN ---
Progress Note: A&P Assessment and Plan (1) CHF (congestive heart failure): Code(s): I50.9 - Heart failure, unspecified Status: Acute (2) Acute hypoxic respiratory failure: Code(s): J96.01 - Acute respiratory failure with hypoxia Status: Acute (3) Lymphedema of both lower extremities: Code(s): I89.0 - Lymphedema, not elsewhere classified Status: Acute (4) Chronic venous insufficiency of lower extremity: Code(s): I87.2 - Venous insufficiency (chronic) (peripheral) Status: Acute (5) STAS (obstructive sleep apnea): Code(s): G47.33 - Obstructive sleep apnea (adult) (pediatric) Status: Acute (6) Essential (primary) hypertension: Onset Date: Unknown Code(s): I10 - Essential (primary) hypertension Status: Acute (7) SLE (systemic lupus erythematosus): Onset Date: Unknown Code(s): M32.9 - Systemic lupus erythematosus, unspecified Status: Acute (8) Morbid obesity: Onset Date: Unknown Code(s): E66.01 - Morbid (severe) obesity due to excess calories Status: Acute Plan This is a pleasant 48-year-old female who is accompanied by both her mother and father. She has a H morbid obesity, STAS noncompliant with CPAP, chronic venous insufficiency, hypertension, SLE on hydroxychloroquine, history of COVID pneumonia in 2021. She presents to [place] [facility] via EMS with increasing lower extremity edema shortness of breath for the last 1 week. She does not know if she has gained weight but states, probably . She has had difficulty with exertion and lying flat. In the past she required thoracentesis for pleural effusion related to SLE. She otherwise denies fever, chest pain, rhinorrhea, cough, abdominal pain, nausea vomiting or diarrhea. She was noted to be 70s SpO2 on room air and was placed on 4 L nasal cannula. On admission her pH by ABG is 7.37, pCO2 53, bicarb 30.4. Troponin negative. BNP elevated at 1460. Her BNP was elevated in September 2021 as well. At that time a surface echocardiogram was conducted which reported normal EF and left ventricular diastolic dysfunction. At that time she was admitted for COVID pneumonia. She received inpatient Lasix x1 and then was discharged home in stable condition. CTA chest was obtained which did not demonstrate PE. Demonstrated pulmonary edema. Venous Doppler ultrasounds of the bilateral lower extremities negative for DVT. Patient was admitted to telemetry on 03/24/24 for acute hypoxic respiratory failure and acute decompensated heart failure. On admission, patient father and mother are present. Than 15 minutes spent on counseling about morbid obesity and the importance of lifestyle change. Provided counseling on the importance of clearance to CPAP therapy. She and her parents understood and the patient herself amenable to follow through with therapies. Patient lives with her parents since being approximately 1 year ago. She has felt depressed and unmotivated. No suicidal or homicidal ideation. This is not been evaluated in the outpatient setting. Advised follow-up with PCP. Care coordinators consulted to help with therapy referrals and support group. Encouragement and comfort provided. Daily weights, low-sodium diet, strict intake/output. Lasix 40 mg IV b.i.d.. Surface echocardiogram ordered. Wean O2 as tolerated. CHF teaching ordered. March 25: Pending surface echo still. Patient breathing a bit better. Her lower extremity edema is improved. Continue monitoring intake output. Continue Lasix. March 26: Surface echocardiogram demonstrating 1. Definity contrast administered improved wall motion interpretation. 2. Left ventricular chamber dimension is normal. 3. Left ventricular systolic function is normal, estimated at 55-60%. 4. The left ventricular diastolic function is abnormal. 5. E/e' 10 is mildly elevated. 6. There is mild aortic valve sclerosis. 7.
--- NOTE | 2024-03-26 13:28 | PC.NURSE ---
[facility] flyer was given to patient.
--- NOTE | 2024-03-26 14:30 | PC.NURSE ---
This patient, Mara Us, was received from [facility] on 03/26/24 at 1430. Patient/family oriented to unit policies and routines. Report received per Ivette POP
--- NOTE | 2024-03-26 14:50 | PM.CNCAR ---
Assessment and Plan Assessment and plan (1) CHF (congestive heart failure): Code(s): I50.9 - Heart failure, unspecified Status: Acute Plan Acute on chronic diastolic heart failure Lymphedema Morbid obesity Obstructive sleep apnea Hypertension Systemic lupus erythematosus Plan Lasix 40 mg IV b.i.d. with a goal of -2-3 L per day DC triamterene hydrochlorothiazide History of Present Illness History of Present Illness Consult date/time: 03/26/24 14:50 Reason For Visit: new onset chf,acute hypoxia Narrative: [age] old female patient presents to the hospital with progressive shortness of breath. Patient has a history of chronic shortness of breath has been ordered it was a recent change in her medication or diet. She noticed over the last month that she has been getting worsening shortness of breath associated with bilateral lower extremity edema. Her shortness of breath with moderate to severe present with mild activity. There was no orthopnea or proximal nocturnal dyspnea. She has history of sleep apnea on CPAP. History of systemic lupus. Review of Systems Review of Systems: All systems reviewed & are unremarkable except as noted in HPI and below PMFSH Past Medical History Medical History Acute respiratory failure with hypoxia Chronic venous insufficiency of lower extremity COVID-19 Essential (primary) hypertension (Unknown) Lymphedema of both lower extremities Malignant melanoma of upper back (~05/2019) Melanoma 2019 STAS (obstructive sleep apnea) Port-A-Cath in place (~2018) SLE (systemic lupus erythematosus) (Unknown) Surgical History Surgical History History of removal of Port-a-Cath 2020 History of skin surgery melanoma - 06/22/2019 Hx of section (~2000) [place] teeth removed (~1989) Family History Family History Father Hypertension Sibling Lupus Social History Social History Smoking status: Never smoker Second hand tobacco smoke exposure: No Alcohol intake: current Alcohol use details: Just every once in awhile Substance use: never Substance use type: does not use Do You Feel Safe in your Home?: Yes Lack of Transportation: No Lack of Food: Never True Current Housing: I Have Housing Concerned About Future Housing: No Difficulty Paying Gas/Electric Bills: YES Difficulty Paying for Meds: No Currently Unemployed: No Education: Associate Degree Difficulty w/ Childcare or Family Care: No Living arrangements: with family Occupation/Education: unemployed Gender identity (if verbalized by the patient): Female Sexual Orientation (if Verbalized by the Patient): Straight or Heterosexual Spiritual care concerns: No Meds Home Medications and Allergies Home Medications Medication Instructions Recorded Confirmed Type hydroxychloroquine 200 mg tablet 200 mg PO BID 07/17/19 03/24/24 History cyanocobalamin (vitamin B-12) 1,000 mcg PO DAILY 03/18/21 03/24/24 History 1,000 mcg tablet (Vitamin B-12) albuterol sulfate 90 mcg/actuation 2 puff inhalation PRN PRN 03/24/24 03/24/24 History aerosol inhaler (Proventil HFA) Shortness Of Breath Or Wheezing triamterene 37.5 1 tablet PO DAILY 03/24/24 03/24/24 History mg-hydrochlorothiazide 25 mg tablet Allergies Allergy/AdvReac Type Severity Reaction Status Date / Time Penicillins AdvReac Mild Rash Verified 03/24/24 12:03 Sulfa (Sulfonamide AdvReac Mild Rash Verified 03/24/24 12:03 Antibiotics) Vital Signs Vital Signs - 24 hr 03/25/24 16:00 03/25/24 16:00 03/25/24 16:00 Temperature 36.9 C Pulse Rate 79 92 Respiratory Rate 24 H Blood Pressure 118/74 Pulse Oximetry 94 94 Oxygen Delivery Nasal Cannula O
--- NOTE | 2024-03-26 20:07 | PC.NURSE ---
On 03/26/24, the ROTO ROOTER OPERATOR, [place], provided care and completed [facility] documentation on this patient. I have reviewed the ROTO ROOTER OPERATOR's documentation and agree with the findings.
[2024-03-27 04:30] VITALS: BP 140/82; PULSE 74; RESP 18; TEMP 36.4; O2SAT 96
[2024-03-27 06:10] LABS: Blood Urea Nitrogen 22 mg/dL (7-17); Calcium 8.5 mg/dL (8.4-10.2); Carbon Dioxide > 40 mmol/L (22-30); Chloride 90 mmol/L (98-107); Estimated CRCL calculation 92 ml/min; Estimated Glomerular Filt Rate > 60; Glucose 90 mg/dL (65-110); Magnesium 2.2 mg/dL (1.6-2.3); Potassium 3.9 mmol/L (3.4-5.0); Sodium 141 mmol/L (137-145)
[2024-03-27 08:00] VITALS: O2SAT 94
[2024-03-27] MEDS: FUROSEMIDE INJ 40 MG/4 ML VIAL IV PUSH (08:11)
[2024-03-27] MEDS: HYDROXYCHLOROQUINE SULFATE 200 MG TABLET PO (08:11)
[2024-03-27] MEDS: ENOXAPARIN 40 MG/0.4 ML SYRINGE SUB-Q (08:11)
[2024-03-27] MEDS: EMPAGLIFLOZIN 10 MG TABLET PO (08:12)
[2024-03-27] MEDS: SPIRONOLACTONE 12.5 MG TABLET PO (08:12)
[2024-03-27] MEDS: CYANOCOBALAMIN 1,000 MCG TABLET 1000 MCG PO (08:12)
[2024-03-27 10:03] VITALS: O2SAT 99
--- NOTE | 2024-03-27 11:09 | PM.PNCARD ---
Progress Note: A&P Assessment and Plan (1) CHF (congestive heart failure): Code(s): I50.9 - Heart failure, unspecified Status: Acute Plan Acute on chronic diastolic heart failure Lymphedema Morbid obesity Obstructive sleep apnea Hypertension Systemic lupus erythematosus Plan Lasix 40 mg IV b.i.d. with a goal of -2-3 L per day DC triamterene hydrochlorothiazide Subjective Date/time seen: 03/27/24 11:09 Review of Systems Review of Systems: All systems reviewed & are unremarkable except as noted in HPI and below Exam Const: General: comfortable and no acute distress Other: Able to lie flat HENMT: Face/Nose/Sinus: Normal nares present and no epistaxis Mouth: Yes moist mucous membranes Eyes: Sclera: sclerae normal Pupils: Equal, round and reactive pupils present Neck: Neck: supple and no JVD Carotids: no bruits Resp: Auscultation: clear to auscultation bilaterally and lung sounds not diminished Other: No chest wall tenderness Cardio: Rate: regular rate Rhythm: regular rhythm Heart sounds: no gallops, no murmurs and no rubs GI: Auscultation: normal bowel sounds Skin: General skin exam: normal color, rashes and/or lesions noted and no erythema Other: Warm Neuro: Cranial nerves: Yes Equal, round and reactive pupils present Speech: normal speech Other: No obvious focal deficit or facial asymmetry Extrem: General: edema bilateral and Limp noted (LE) Other: Normal capillary refills Intact distal pulses. Objective Data Vital Signs Vital Signs: Vital Signs - 24 hr 03/26/24 11:59 03/26/24 12:00 03/26/24 13:24 Temperature 36.6 C Pulse Rate 74 Respiratory Rate 16 Blood Pressure 130/72 Pulse Oximetry 100 97 81 L Oxygen Delivery Nasal Cannula Nasal Cannula Oxygen Flow Rate 2 4 03/26/24 12:00 03/26/24 13:40 03/26/24 14:00 Temperature Pulse Rate 83 72 Respiratory Rate Blood Pressure Pulse Oximetry 100 Oxygen Delivery Nasal Cannula Oxygen Flow Rate 3 03/26/24 14:02 03/26/24 14:30 03/26/24 20:10 Temperature 36.6 C Pulse Rate 77 Respiratory Rate 18 Blood Pressure 163/88 H Pulse Oximetry 97 97 96 Oxygen Delivery Nasal Cannula Nasal Cannula Oxygen Flow Rate 2 2 03/26/24 22:40 03/27/24 04:30 03/27/24 08:00 Temperature 36.4 C L Pulse Rate 74 Respiratory Rate 23 H 18 Blood Pressure 140/82 Pulse Oximetry 95 96 94 Oxygen Delivery Autopap Nasal Cannula Oxygen Flow Rate 2 03/27/24 10:03 Temperature Pulse Rate Respiratory Rate Blood Pressure Pulse Oximetry 99 Oxygen Delivery Oxygen Flow Rate Intake/Output Intake/Output: Intake & Output 03/24/24 03/25/24 03/26/24 03/27/24 23:59 23:59 23:59 23:59 Intake Total 240 1950 1860 440 Output Total 8950 4750 3100 Balance 672 -9424 -0660 -4740 Meds/Results Medications: Active Medications Generic Name Dose Route Start Last Admin Trade Name Freq PRN Reason Stop Dose Admin Cyanocobalamin 1,000 mcg 03/25/24 09:00 03/27/24 08:12 Cyanocobalamin 1,000 Mcg Tablet PO 1,000 mcg DAILY DELROY Administration Dextrose 12.5 gm 03/24/24 15:45 Dextrose 50% 25 Gm/50 Ml Syringe IV PUSH PRN PRN Hypoglycemia Protocol Empagliflozin 10 mg 03/25/24 13:30 03/27/24 08:12 Empagliflozin 10 Mg Tablet PO 10 mg DAILY DELROY Administration Enoxaparin Sodium 40 mg 03/25/24 09:00 03/27/24 08:11 Enoxaparin 40 Mg/0.4 Ml Syringe SUB-Q 40 mg DAILY DELROY Administration Furosemide 40 mg 03/24/24 21:00 03/27/24 08:11 Furosemide Inj 40 Mg/4 Ml Vial IV PUSH 40 mg Q12HR DELROY Administration Glucagon 1 mg 03/24/24 15:45 Glucagon For Inj 1 Mg Vial IM PRN PRN Hypoglycemia Protocol Glucose 15 gm 03/24/24 15:45 Glucose Oral Gel 15 Gm Of Glucse In 37.5 Gm Tube PO PRN PRN Hypoglycemia Protocol Hydroxychloroquine Sulfate 200 mg 03/24/24 21:10 03/27/24 0
--- NOTE | 2024-03-27 12:35 | PM.DS ---
DS: Admitting Diagnosis Discharge Date March 27, 2024 Admitting Diagnosis Shortness of breath for 1 month DS: Discharge Diagnosis Discharge Diagnosis (1) CHF (congestive heart failure): Code(s): I50.9 - Heart failure, unspecified Status: Acute (2) Acute hypoxic respiratory failure: Code(s): J96.01 - Acute respiratory failure with hypoxia Status: Acute (3) Lymphedema of both lower extremities: Code(s): I89.0 - Lymphedema, not elsewhere classified Status: Acute DS: Summary Hospital Course Hospital Course: This is a pleasant 48-year-old female who is accompanied by both her mother and father. She has a H morbid obesity, STAS noncompliant with CPAP, chronic venous insufficiency, hypertension, SLE on hydroxychloroquine, history of COVID pneumonia in 2021. She presents to [facility] via EMS with increasing lower extremity edema shortness of breath for the last 1 week. She does not know if she has gained weight but states, probably . She has had difficulty with exertion and lying flat. In the past she required thoracentesis for pleural effusion related to SLE. She otherwise denies fever, chest pain, rhinorrhea, cough, abdominal pain, nausea vomiting or diarrhea. She was noted to be 70s SpO2 on room air and was placed on 4 L nasal cannula. On admission her pH by ABG is 7.37, pCO2 53, bicarb 30.4. Troponin negative. BNP elevated at 1460. Her BNP was elevated in September 2021 as well. At that time a surface echocardiogram was conducted which reported normal EF and left ventricular diastolic dysfunction. At that time she was admitted for COVID pneumonia. She received inpatient Lasix x1 and then was discharged home in stable condition. CTA chest was obtained which did not demonstrate PE. Demonstrated pulmonary edema. Venous Doppler ultrasounds of the bilateral lower extremities negative for DVT. Patient was admitted to telemetry on 03/24/24 for acute hypoxic respiratory failure and acute decompensated heart failure. On admission, patient father and mother are present. Than 15 minutes spent on counseling about morbid obesity and the importance of lifestyle change. Provided counseling on the importance of clearance to CPAP therapy. She and her parents understood and the patient herself amenable to follow through with therapies. Patient lives with her parents since being approximately 1 year ago. She has felt depressed and unmotivated. No suicidal or homicidal ideation. This is not been evaluated in the outpatient setting. Advised follow-up with PCP. Care coordinators consulted to help with therapy referrals and support group. Encouragement and comfort provided. Daily weights, low-sodium diet, strict intake/output. Lasix 40 mg IV b.i.d.. Surface echocardiogram ordered. Wean O2 as tolerated. CHF teaching ordered. March 25: Pending surface echo still. Patient breathing a bit better. Her lower extremity edema is improved. Continue monitoring intake output. Continue Lasix. March 26: Surface echocardiogram demonstrating 1. Definity contrast administered improved wall motion interpretation. 2. Left ventricular chamber dimension is normal. 3. Left ventricular systolic function is normal, estimated at 55-60%. 4. The left ventricular diastolic function is abnormal. 5. E/e' 10 is mildly elevated. 6. There is mild aortic valve sclerosis. 7. There is trace mitral valve regurgitation. 8. There is mild to moderate tricuspid valve regurgitation. 9. No pulmonary hypertension, estimated pulmonary arterial systolic pressure is 38 mmHg. 10. Dilated inferior vena cava with >50% collapse upon inspiration consistent with elevated right atrial pressure, 10 mmHg. Jardiance 10 mg p.o. q.day and spironolactone 12.5 mg p.o. q.a.m. started on 03/25. She is -7 L. still requiring 3 L nasal cannula. Continue Lasix 40 mg IV b.i.d.. She has been tolerating CPAP. Again encouraged compliance. Ca
[2024-03-27 13:16] VITALS: BMI 51.7
== END 2024-03-27 13:40 | disposition home or self-care (01) | DRG 194 ==
LOC: ANHED 13:24 → ANHIMU 16:38 → ANH3MEDSUR 03-26 14:20
PROVIDERS: Emergency Medicine; Admitting Provider General Practice; Emergency Provider Physician Assistant; PCP Family Medicine; Visit Provider General Practice
DX: I50.33 Acute on chronic diastolic (congestive) heart failure (principal); I89.0 Lymphedema, not elsewhere classified; Z20.822 Contact with and (suspected) exposure to COVID-19; J96.01 Acute respiratory failure with hypoxia; G47.33 Obstructive sleep apnea (adult) (pediatric); E66.01 Morbid (severe) obesity due to excess calories; M32.9 Systemic lupus erythematosus, unspecified; I87.2 Venous insufficiency (chronic) (peripheral); Z68.43 Body mass index [BMI] 50.0-59.9, adult; Z91.199 Patient's noncompliance with other medical treatment and regimen due to unspecified reason; Z86.16 Personal history of COVID-19; Z85.820 Personal history of malignant melanoma of skin
CPT/HCPCS: 36415; 36600; 71045; 71046; 71275; 80048; 80053; 82375; 82805; 83050; 83735; 83880; 84484; 85025; 85027; 87637; 93005; 93970; 94002; 94003; 96372; 96374; 96375; 99285; A9270; C8929; G0378; G0379; J1650; J1940; Q9957; Q9967

== ENCOUNTER 2024-05-10 11:32 | Outpatient (CLI) | payer MEDICAID, SELFPAY ==
--- NOTE | ~2024-05-10 | XR_ITS ---
Clinical Indication: Cough PA and lateral views of the chest: Comparison: 03/25/2024 Findings: Probable minimal central congestive change, without evidence of focal consolidation or pleu ral effusion. Cardiomediastinal silhouette is within normal limits. Bones and soft tissues are unrem arkable. Impression: Probable minimal central congestive change. Reviewed, dictated and finalized at location . Impression: Probable minimal central congestive change.
[2024-05-10 12:10] LABS: Alanine Aminotransferase 27 U/L (6-35); Albumin Level 3.9 g/dL (3.5-5.1); Alkaline Phosphatase 116 U/L (38-126); Aspartate Amino Transferase 35 U/L (14-36); Bilirubin,Total 0.6 mg/dL (0.2-1.3); Blood Urea Nitrogen 15 mg/dL (7-17); Calcium 8.7 mg/dL (8.4-10.2); Carbon Dioxide > 40 mmol/L (22-30); Chloride 93 mmol/L (98-107); Estimated Glomerular Filt Rate > 60; Glucose 83 mg/dL (65-110); Sodium 139 mmol/L (137-145)
[2024-05-10 12:16] LABS: NT Pro B Type Natriuretic Pept 505 pg/mL (19.9-100)
[2024-05-10 12:28] LABS: Influenza A QL RT-PCR Negative (Negative); Influenza B QL RT-PCR Negative (Negative); RSV RNA, RT-PCR Negative (Negative); SARS-CoV-2 RNA PCR Positive (Negative)
== END 2024-05-10 11:33 | disposition home or self-care (01) ==
LOC: ANHLAB 11:34
PROVIDERS: PCP Family Medicine; Visit Provider Family Medicine
DX: R05.9 Cough, unspecified (principal); I50.9 Heart failure, unspecified; I11.0 Hypertensive heart disease with heart failure
CPT/HCPCS: 36415; 71046; 80053; 83880; 87637

== ENCOUNTER 2024-07-13 08:13 | Outpatient (CLI) | payer OTHER, SELFPAY ==
--- NOTE | 2024-07-14 18:49 | WPDSLEEPSTUD ---
Sleep Study Date of Study: 07/13/24 <Shelly Yoder MD - Last Filed: 07/24/24 14:26> Ordering Provider: LACEY Wright <Shelly Yoder MD - Last Filed: 07/24/24 14:26> Interpreting Physician: Shelly Yoder MD <Shelly Yoder MD - Last Filed: 07/24/24 14:26> Sleep Study Type: Split Polysomnogram <Shelly Yoder MD - Last Filed: 07/24/24 14:26> Height: 1.55 m <Shelly Yoder MD - Last Filed: 07/24/24 14:26> Weight: 122.47 kg <Shelly Yoder MD - Last Filed: 07/24/24 14:26> Body Mass Index: 51.0 <Shelyl Yoder MD - Last Filed: 07/24/24 14:26> 51.0 <Madalyn Troy DO - Last Filed: 07/24/24 13:28> Neck Circumference (inches): 16.5 <Shelly Yoder MD - Last Filed: 07/24/24 14:26> [place]: 20 <Shelly Yoder MD - Last Filed: 07/24/24 14:26> Reason for Sleep Study aMra Us is a 49-year-old woman with excessive daytime sleepiness. She was previously diagnosed with STAS but is not currently using CPAP. She was admitted to the hospital for respiratory failure and decompensated heart failure. Needs to be re-evaluated for sleep apnea. <Madalyn Troy DO - Last Filed: 07/24/24 13:28> Sleep History Mara Us is a 49-year-old woman with excessive daytime sleepiness that had a sleep study ordered by the pulmonary group for evaluation of sleep apnea. 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 The patient occasionally awakens from sleep short of breath. She frequently awakens at night with heartburn, belching or cough. She constantly snores loudly enough that others complain. She constantly has trouble sleeping when she has a cold. She occasionally wakes up gasping for air throughout the night. She occasionally has breathing problems at night observed by herself or others. She rarely sweats excessively at night. She denies having heart palpitations or irregular heartbeats during the night. She constantly falls asleep during the day but rarely falls asleep while driving. She rarely experiences loss of muscle tone when extremely emotional. She rarely has trouble at school or work due to sleepiness. She denies sleep paralysis. She occasionally experiences vivid dreamlike scenes upon awakening or falling asleep. She rarely feels afraid of going to sleep. She rarely has nightmares. She rarely remembers her dreams. She occasionally has thoughts racing through her mind. She rarely feels sad or depressed. She occasionally has anxiety. She rarely has muscular tension. She rarely notices parts of her body jerk. She denies kicking during the night. He occasionally has crawling and aching feelings in her legs but rarely has leg pain during the night. He rarely grinds her teeth during sleep and rarely awakens with morning jaw pain. She is rarely bothered by pain during the day and rarely awakened by pain during the night. She rarely wakes up feeling stiff in the morning. She rarely wakes up with sore or achy muscles. She rarely wakes up with pain in the neck, spine or other joints. She goes to bed at 10:00 p.m. on weekdays and at 2:30 a.m. on the weekends. She is able to fall asleep relatively quickly. She wakes up 3 times throughout the night to urinate in a can take up to an hour for her to fall back asleep. She wakes up at 5:30 a.m. on weekdays and at 9:00 a.m. on the weekends. She typically gets 6 hours of sleep per night. She will stay in bed for 1 hour after waking up in the morning. She currently lives with her parents and adult daughter. She denies consuming any caffeinated beverages within 2 hours of bedtime. She denies engaging in physical exercise before bedtime. She will watch television before falling asleep. She will take naps in the afternoon or the evening and they are refreshing. She consumes 1 caffeinated beverage per day. She consumes 2 alcoholic beverages occasionally. She denies tobacco and recreational drug <Madalyn Troy, DO - Last Filed: 07/24/24 13:28> [facility] Past Medical History Medical History: Medical History Acute respiratory failure with hypoxia Chronic venous insufficiency of lower extremity COVID-19 Essential (primary) hypertension (Unknown) Hypersomnia Lymphedema of both lower extremities Malignant melanoma of upper back (~05/2019) Melanoma 2019 STAS (obstructive sleep apnea) Port-A-Cath in place (~2018) SLE (systemic lupus erythematosus) (Unknown) <Shelly Yoder MD - Last Filed: 07/24/24 14:26> Surgical History Surgical History: Surgical History History of removal of Port-a-Cath 2020 History of skin surgery melanoma - 06/22/2019 Hx of section (~2000) [place] teeth removed (~1989) <Shelly Yoder MD - Last Filed: 07/24/24 14:26> Family History Family History: Family History Father Hypertension Sibling Lupus <Shelly Yoder MD - Last Filed: 07/24/24 14:26> Social History Social History: Social History Smoking status: Never smoker Second hand tobacco smoke exposure: No Alcohol intake: current Alcohol use details: Just every once in awhile Substance use: never Substance use type: does not use Do You Feel Safe in your Home?: Yes Lack of Transportation: No Lack of Food: Never True Current Housing: I Have Housing Concerned About Future Housing: No Difficulty Paying Gas/Electric Bills: YES Difficulty Paying for Meds: No Currently Unemployed: No Education: Associate Degree Difficulty w/ Childcare or Family Care: No Living arrangements: with family Occupation/Education: unemployed Gender identity (if verbalized by the patient): Female Sexual Orientation (if Verbalized by the Patient): Straight or Heterosexual Spiritual care concerns: No <Shelly Yoder MD - Last Filed: 07/24/24 14:26> Medications Home Medications: Home Medications Medication Instructions Recorded Confirmed Type hydroxychloroquine 200 mg tablet 200 mg PO BID 07/17/19 05/10/24 History cyanocobalamin (vitamin B-12) 1,000 mcg PO DAILY 03/18/21 05/10/24 History 1,000 mcg tablet (Vitamin B-12) empagliflozin 10 mg tablet 10 mg PO DAILY #30 tabs 03/27/24 05/10/24 Rx (Jardiance) furosemide 40 mg tablet 40 mg PO DAILY #90 tabs 05/02/24 05/10/24 Rx albuterol sulfate 90 mcg/actuation 2 puff inhalation PRN PRN 05/10/24 05/10/24 Rx aerosol inhaler (Proventil HFA) Shortness Of Breath Or Wheezing #8.5 grams nirmatrelvir 300 mg (150 mg See Rx Instructions PO .COMPLEX 05/10/24 05/10/24 Rx x2)-ritonavir 100 mg tablet,dose #30 ea pack (Paxlovid) spironolactone 25 mg tablet 12.5 mg PO DAILY #45 tabs 06/26/24 Rx <Shelly Yoder MD - Last Filed: 07/24/24 14:26> Sleep Procedure A split night polysomnogram using the [employer] multi-channel system recorded the standard physiologic parameters including EEG, EOG, submentalis EMG, anterior tibialis EMG, EKG, body position, nasal and oral airflow using nasal pressure sensor and thermistor. Respiratory parameters of chest and abdominal movements were recorded with Respiratory Inductance Plethysmography belts. Oxygen saturation was recorded by pulse oximetry. Video monitoring was also performed. Sleep stages, periodic limb movements, and EEG arousals were scored in 30 second epochs according to the criteria of the AASM Scoring Manual. The Apnea-Hypopnea Index was calculated using CMS guidelines for definition of hypopnea while scoring respiratory events. <Madalyn rToy DO - Last Filed: 07/24/24 13:28> Sleep Architecture During the diagnostic portion of the study, the total recording time was 154.4 minutes. The total sleep time was 123.5 minutes. Sleep latency was 5.9 minutes.? REM latency was 112.5 minutes. Sleep Efficiency was 80.0%. The patient had 13 awakenings for an awakening index of 6.3. Wake after sleep onset time was 25.0 minutes. The patient spent 19.0 minutes, 15.4% of total sleep time in Stage N1. The patient spent 101.5 minutes, 82.2% in Stage N2. The patient spent 0.5 minutes, 0.4% in Stage N3. The patient spent 2.5 minutes, 2.0% in Stage REM sleep. At 12:39:10 AM the patient was placed on PAP treatment and was titrated at pressures ranging from 5 cm H20 up to 18/8 cm H20 with supplemental oxygen at 2 lpm. During the treatment portion of the study, the total recording time was 322.6 minutes.? The total sleep time was 228.0 minutes. Sleep latency was 0.0 minutes. REM latency was 25.5 minutes. Sleep Efficiency was 70.7%. Wake after Sleep Onset time was 94.5 minutes. The patient spent 23.5 minutes, 10.3% of total sleep time in Stage N1. The patient spent 147.0 minutes, 64.5% in Stage N2. The patient spent 0.0 minutes, 0.0% in Stage N3. The patient spent 57.5 minutes, 25.2% in Stage REM. <Madalyn Troy, DO - Last Filed: 07/24/24 13:28> Respiratory Analysis During the diagnostic portion of the study, the patient had 34 hypopneas, 3 obstructive apneas for an overall Apnea Hypopnea Index of 18.0 events per hour. The REM Apnea Hypopnea Index was 24.0. The NREM Apnea Hypopnea Index was 17.9. The patient had a Central Apnea Hypopnea Index of 0. There was no evidence of Aubrey-Kong Respirations. During the treatment portion of the study, the patient had 41 hypopneas, 9 obstructive apneas and 1 mixed apnea for an overall Apnea Hypopnea Index of 13.4 events per hour. The REM Apnea Hypopnea Index was 26.1. The NREM Apnea Hypopnea Index was 9.1. The patient had a Central Apnea Hypopnea Index of 0. There was no evidence of Aubrey-Kong Respirations. One the patient initially started the sleep study, her oxygen saturation was in the low 80s. Her oxygen saturation dropped down to 55% after the lights were turned out and recording began. The patient was started on 1 L of supplemental oxygen and that was a ventrally titrated to 2 L due to persistently low oxygen saturation. The patient was started on CPAP 5 cm H2O with room air and titrated to BPAP 12/4 cm H2O due low oxygen saturations. The patient's oxygen saturation readings were still low on BPAP so she was switched back to CPAP 5 cm H2O with 1 lpm of supplemental O2. The patient was than titrated to BPAP 18/8 cm H2O with 2 lpm of O2. the patient was able to fall asleep starting on CPAP 5 cm H2O. The patient was able to achieve REM sleep starting on BPAP 10/4 cm H2O. The patient was able to achieve a residual AHI less than 5 with both NREM and REM sleep on the final pressure. On BPAP 18/8 cm H2O with 2 lpm of O2, the patient spent 15 minutes in NREM and 16.5 minutes in REM with 1 mixed apnea and 1 hypopnea, resulting in an AHI of 3.8. The patient had a sleep efficiency of 40.6% on this pressure setting. The patient still had an oxygen saturation ranging from 87-90% on the final settings. <Madalyn Troy, - Last Filed: 07/24/24 13:28> Arousals During the diagnostic portion of the study, there were a total of 61 arousals for an arousal index of 29.6.? There were 27 respiratory arousals for an index of 13.1. There were 0 periodic limb movement arousals for an index of 0.? There were 2 isolated limb movement arousals for an index of 1.0. There were 32 spontaneous arousals for an index of 15.5. During the treatment portion of the study, there were a total of 55 arousals for an index of 14.5.? There were 7 respiratory arousals for an index of 1.8. There were 3 periodic limb movement arousals for an index of 0.8.? There were 4 isolated limb movement arousals for an index of 1.1. There were 41 spontaneous arousals for an index of 10.8. <Madalyn Troy, - Last Filed: 07/24/24 13:28> Periodic Limb Movements During the diagnostic portion of the study, the patient had 10 isolated limb movements with an index of 4.9. The patient had 0 periodic limb movements with an index of 0. The patient had a total of 10 limb movements with a total limb movement index of 4.9. During the treatment portion of the study, the patient had 13 isolated limb movements with an index of 3.4. The patient had 17 periodic limb movements with an index of 4.5. The patient had a total of 30 limb movements with a total limb movement index of 7.9. <Madalyn Troy DO - Last Filed: 07/24/24 13:28> Oximetry Data During the diagnostic portion of the study, the patient had an average oxygen saturation of 80.4% in wake with a minimum oxygen saturation of 36% and a maximum oxygen saturation of 95%. The patient had an average oxygen saturation of 85.3% in sleep with a minimum oxygen saturation of 41.0% and a maximum oxygen saturation of 96.0%. The patient had 42 oxygen desaturations resulting in an Oxygen Desaturation Index of 20.9. The patient spent 80.1 minutes, 52% of total sleep time with an oxygen saturation less than 88%. During the treatment portion of the study, the patient had an average oxygen saturation of 84.9% in wake with a minimum oxygen saturation of 47.0% and a maximum oxygen saturation of 94.0%. The patient had an average oxygen saturation of 80.7% in sleep with a minimum oxygen saturation of 46.0% and a maximum oxygen saturation of 95.0%. The patient had 79 oxygen desaturations resulting in an Oxygen Desaturation Index of 20.8. The patient spent 208.7 minutes, 66.9% of total sleep time with an oxygen saturation less than 88%. <Madalyn Troy, Last Filed: 07/24/24 13:28> Snoring Profile Mild snoring was present in the baseline portion of the study. <Madalyn Troy DO Last Filed: 07/24/24 13:28> Cardiac Profile The EKG lead showed normal sinus rhythm. No arrhythmias or PVCs were seen. During the diagnostic portion of the study, the average pulse rate was 87.0 bpm.? The minimum pulse rate was 58.0 bpm. The maximum pulse rate was 122.0 bpm. During the treatment portion of the study, the average pulse rate was 87.2 bpm.? The minimum pulse rate was 65.0 bpm. The maximum pulse rate was 124.0 bpm. <Madalyn Troy, DO - Last Filed: 07/24/24 13:28> Assessment and Plan Assessment and Plan (1) STAS (obstructive sleep apnea): Code(s): G47.33 - Obstructive sleep apnea (adult) (pediatric) <Shelly Yoder MD - Last Filed: 07/24/24 14:26> Status: Acute <Shelly Yoder MD - Last Filed: 07/24/24 14:26> Assessment and Plan: In the baseline portion of the study, the patient had an overall AHI of 18 with desaturation down to 41%. This is consistent with moderate sleep apnea. The patient was started on CPAP 5 cm H2O and titrated to BPAP 18/8 cm H2O with 2 lpm of supplemental oxygen. while the patient's sleep apnea resolved on the final pressure settings during the study, her oxygen saturation was still persistently below 90%. I recommend that the patient be prescribed BPAP 18/8 cm H2O with 3 lpm of supplemental oxygen, size small F[employer]P Eson nasl mask, BPAP filters/tubing and heated humidity. This should be used with all episodes of sleep.? Compliance should be reviewed within 31-90 days of starting therapy for usage greater than 4 hours per night greater than 70% of the nights. The patient should be asked about symptoms such as?excessive daytime sleepiness, quality of sleep, decreased nocturia, increased?mental functioning such as memory, mood, and concentration. <Madalyn Troy, DO - Last Filed: 07/24/24 13:28> Data The data obtained during this sleep study is adequate for interpretation. <Shelly Yoder MD - Last Filed: 07/24/24 14:26> Certification This sleep study has been reviewed by a board certified sleep medicine physician. <Shelly Yoder MD - Last Filed: 07/24/24 14:26>
[2024-07-24 13:28] VITALS: BMI 51.0
--- NOTE | 2024-07-24 13:28 | WPDSLEEPSTUD ---
Sleep Study Date of Study: 07/13/24 Ordering Provider: LACEY Wright Interpreting Physician: Madalyn Troy DO Sleep Study Type: Split Polysomnogram Height: 1.55 m Weight: 122.47 kg Body Mass Index: 51.0 Neck Circumference (inches): 16.5 [place]: 20 Reason for Sleep Study Mara Us is a 49-year-old woman with excessive daytime sleepiness.? She was previously diagnosed with STAS but is not currently using CPAP. She was admitted to the hospital for respiratory failure and decompensated heart failure. Sleep History Mara Us is a 49-year-old woman with excessive daytime sleepiness that had a sleep study ordered by the pulmonary group for evaluation of sleep apnea. 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 The patient occasionally awakens from sleep short of breath. She frequently awakens at night with heartburn, belching or cough. She constantly snores loudly enough that others complain. She constantly has trouble sleeping when she has a cold. She occasionally wakes up gasping for air throughout the night. She occasionally has breathing problems at night observed by herself or others. She rarely sweats excessively at night. She denies having heart palpitations or irregular heartbeats during the night. She constantly falls asleep during the day but rarely falls asleep while driving. She rarely experiences loss of muscle tone when extremely emotional. She rarely has trouble at school or work due to sleepiness. She denies sleep paralysis. She occasionally experiences vivid dreamlike scenes upon awakening or falling asleep. She rarely feels afraid of going to sleep. She rarely has nightmares. She rarely remembers her dreams. She occasionally has thoughts racing through her mind. She rarely feels sad or depressed. She occasionally has anxiety. She rarely has muscular tension. She rarely notices parts of her body jerk. She denies kicking during the night. He occasionally has crawling and aching feelings in her legs but rarely has leg pain during the night. He rarely grinds her teeth during sleep and rarely awakens with morning jaw pain. She is rarely bothered by pain during the day and rarely awakened by pain during the night. She rarely wakes up feeling stiff in the morning. She rarely wakes up with sore or achy muscles. She rarely wakes up with pain in the neck, spine or other joints. She goes to bed at 10:00 p.m. on weekdays and at 2:30 a.m. on the weekends. She is able to fall asleep relatively quickly. She wakes up 3 times throughout the night to urinate in a can take up to an hour for her to fall back asleep. She wakes up at 5:30 a.m. on weekdays and at 9:00 a.m. on the weekends. She typically gets 6 hours of sleep per night. She will stay in bed for 1 hour after waking up in the morning. She currently lives with her parents and adult daughter. She denies consuming any caffeinated beverages within 2 hours of bedtime. She denies engaging in physical exercise before bedtime. She will watch television before falling asleep. She will take naps in the afternoon or the evening and they are refreshing. She consumes 1 caffeinated beverage per day. She consumes 2 alcoholic beverages occasionally. She denies tobacco and recreational drug use. [facility] Past Medical History Medical History Acute respiratory failure with hypoxia Chronic venous insufficiency of lower extremity COVID-19 Essential (primary) hypertension (Unknown) Hypersomnia Lymphedema of both lower extremities Malignant melanoma of upper back (~05/2019) Melanoma 2019 STAS (obstructive sleep apnea) Port-A-Cath in place (~2018) SLE (systemic lupus erythematosus) (Unknown) Surgical History Surgical History History of removal of Port-a-Cath 2020 History of skin surgery melanoma - 06/22/2019 Hx of section (~2000) [place] teeth removed (~1989) Family History Family History Father Hypertension Sibling Lupus Social History Social History Smoking status: Never smoker Second hand tobacco smoke exposure: No Alcohol intake: current Alcohol use details: Just every once in awhile Substance use: never Substance use type: does not use Do You Feel Safe in your Home?: Yes Lack of Transportation: No Lack of Food: Never True Current Housing: I Have Housing Concerned About Future Housing: No Difficulty Paying Gas/Electric Bills: YES Difficulty Paying for Meds: No Currently Unemployed: No Education: Associate Degree Difficulty w/ Childcare or Family Care: No Living arrangements: with family Occupation/Education: unemployed Gender identity (if verbalized by the patient): Female Sexual Orientation (if Verbalized by the Patient): Straight or Heterosexual Spiritual care concerns: No Medications Home Medications Medication Instructions Recorded Confirmed Type hydroxychloroquine 200 mg tablet 200 mg PO BID 07/17/19 05/10/24 History cyanocobalamin (vitamin B-12) 1,000 mcg PO DAILY 03/18/21 05/10/24 History 1,000 mcg tablet (Vitamin B-12) empagliflozin 10 mg tablet 10 mg PO DAILY #30 tabs 03/27/24 05/10/24 Rx (Jardiance) furosemide 40 mg tablet 40 mg PO DAILY #90 tabs 05/02/24 05/10/24 Rx albuterol sulfate 90 mcg/actuation 2 puff inhalation PRN PRN 05/10/24 05/10/24 Rx aerosol inhaler (Proventil HFA) Shortness Of Breath Or Wheezing #8.5 grams nirmatrelvir 300 mg (150 mg See Rx Instructions PO .COMPLEX 05/10/24 05/10/24 Rx x2)-ritonavir 100 mg tablet,dose #30 ea pack (Paxlovid) spironolactone 25 mg tablet 12.5 mg PO DAILY #45 tabs 06/26/24 Rx Sleep Procedure A split night polysomnogram using the [employer] multi-channel system recorded the standard physiologic parameters including EEG, EOG, submentalis EMG, anterior tibialis EMG, EKG, body position, nasal and oral airflow using nasal pressure sensor and thermistor. Respiratory parameters of chest and abdominal movements were recorded with Respiratory Inductance Plethysmography belts. Oxygen saturation was recorded by pulse oximetry. Video monitoring was also performed. Sleep stages, periodic limb movements, and EEG arousals were scored in 30 second epochs according to the criteria of the AASM Scoring Manual. The Apnea-Hypopnea Index was calculated using CMS guidelines for definition of hypopnea while scoring respiratory events. Sleep Architecture During the diagnostic portion of the study, the total recording time was 154.4 minutes. The total sleep time was 123.5 minutes. Sleep latency was 5.9 minutes.? REM latency was 112.5 minutes. Sleep Efficiency was 80.0%. The patient had 13 awakenings for an awakening index of 6.3. Wake after sleep onset time was 25.0 minutes. The patient spent 19.0 minutes, 15.4% of total sleep time in Stage N1. The patient spent 101.5 minutes, 82.2% in Stage N2. The patient spent 0.5 minutes, 0.4% in Stage N3. The patient spent 2.5 minutes, 2.0% in Stage REM sleep. At 12:39:10 AM the patient was placed on PAP treatment and was titrated at pressures ranging from 5 cm H20 up to 18/8 cm H20 with supplemental oxygen at 2 lpm. During the treatment portion of the study, the total recording time was 322.6 minutes.? The total sleep time was 228.0 minutes. Sleep latency was 0.0 minutes. REM latency was 25.5 minutes. Sleep Efficiency was 70.7%. Wake after Sleep Onset time was 94.5 minutes. The patient spent 23.5 minutes, 10.3% of total sleep time in Stage N1. The patient spent 147.0 minutes, 64.5% in Stage N2. The patient spent 0.0 minutes, 0.0% in Stage N3. The patient spent 57.5 minutes, 25.2% in Stage REM. Respiratory Analysis During the diagnostic portion of the study, the patient had 34 hypopneas, 3 obstructive apneas for an overall Apnea Hypopnea Index of 18.0 events per hour. The REM Apnea Hypopnea Index was 24.0. The NREM Apnea Hypopnea Index was 17.9. The patient had a Central Apnea Hypopnea Index of 0. There was no evidence of Aubrey-Kong Respirations. During the treatment portion of the study, the patient had 41 hypopneas, 9 obstructive apneas and 1 mixed apnea for an overall Apnea Hypopnea Index of 13.4 events per hour. The REM Apnea Hypopnea Index was 26.1. The NREM Apnea Hypopnea Index was 9.1. The patient had a Central Apnea Hypopnea Index of 0. There was no evidence of Aubrey-Kong Respirations. One the patient initially started the sleep study, her oxygen saturation was in the low 80s. Her oxygen saturation dropped down to 55% after the lights were turned out and recording began. The patient was started on 1 L of supplemental oxygen and that was a ventrally titrated to 2 L due to persistently low oxygen saturation. The patient was started on CPAP 5 cm H2O with room air and titrated to BPAP 12/4 cm H2O due low oxygen saturations. The patient's oxygen saturation readings were still low on BPAP so she was switched back to CPAP 5 cm H2O with 1 lpm of supplemental O2. The patient was than titrated to BPAP 18/8 cm H2O with 2 lpm of O2. the patient was able to fall asleep starting on CPAP 5 cm H2O. The patient was able to achieve REM sleep starting on BPAP 10/4 cm H2O. The patient was able to achieve a residual AHI less than 5 with both NREM and REM sleep on the final pressure. On BPAP 18/8 cm H2O with 2 lpm of O2, the patient spent 15 minutes in NREM and 16.5 minutes in REM with 1 mixed apnea and 1 hypopnea, resulting in an AHI of 3.8. The patient had a sleep efficiency of 40.6% on this pressure setting. The patient still had an oxygen saturation ranging from 87-90% on the final settings. Arousals During the diagnostic portion of the study, there were a total of 61 arousals for an arousal index of 29.6.? There were 27 respiratory arousals for an index of 13.1. There were 0 periodic limb movement arousals for an index of 0.? There were 2 isolated limb movement arousals for an index of 1.0. There were 32 spontaneous arousals for an index of 15.5. During the treatment portion of the study, there were a total of 55 arousals for an index of 14.5.? There were 7 respiratory arousals for an index of 1.8. There were 3 periodic limb movement arousals for an index of 0.8.? There were 4 isolated limb movement arousals for an index of 1.1. There were 41 spontaneous arousals for an index of 10.8. Periodic Limb Movements During the diagnostic portion of the study, the patient had 10 isolated limb movements with an index of 4.9. The patient had 0 periodic limb movements with an index of 0. The patient had a total of 10 limb movements with a total limb movement index of 4.9. During the treatment portion of the study, the patient had 13 isolated limb movements with an index of 3.4. The patient had 17 periodic limb movements with an index of 4.5. The patient had a total of 30 limb movements with a total limb movement index of 7.9. Oximetry Data During the diagnostic portion of the study, the patient had an average oxygen saturation of 80.4% in wake with a minimum oxygen saturation of 36% and a maximum oxygen saturation of 95%. The patient had an average oxygen saturation of 85.3% in sleep with a minimum oxygen saturation of 41.0% and a maximum oxygen saturation of 96.0%. The patient had 42 oxygen desaturations resulting in an Oxygen Desaturation Index of 20.9. The patient spent 80.1 minutes, 52% of total sleep time with an oxygen saturation less than 88%. During the treatment portion of the study, the patient had an average oxygen saturation of 84.9% in wake with a minimum oxygen saturation of 47.0% and a maximum oxygen saturation of 94.0%. The patient had an average oxygen saturation of 80.7% in sleep with a minimum oxygen saturation of 46.0% and a maximum oxygen saturation of 95.0%. The patient had 79 oxygen desaturations resulting in an Oxygen Desaturation Index of 20.8. The patient spent 208.7 minutes, 66.9% of total sleep time with an oxygen saturation less than 88%. Snoring Profile Mild snoring was present in the baseline portion of the study. Cardiac Profile The EKG lead showed normal sinus rhythm. No arrhythmias or PVCs were seen. During the diagnostic portion of the study, the average pulse rate was 87.0 bpm.? The minimum pulse rate was 58.0 bpm. The maximum pulse rate was 122.0 bpm. During the treatment portion of the study, the average pulse rate was 87.2 bpm.? The minimum pulse rate was 65.0 bpm. The maximum pulse rate was 124.0 bpm. EEG Profile No signs of seizure activity seen. Assessment and Plan Assessment and Plan (1) STAS (obstructive sleep apnea): Code(s): G47.33 - Obstructive sleep apnea (adult) (pediatric) Status: Acute Assessment and Plan: In the baseline portion of the study, the patient had an overall AHI of 18 with desaturation down to 41%. This is consistent with moderate sleep apnea. The patient was started on CPAP 5 cm H2O and titrated to BPAP 18/8 cm H2O with 2 lpm of supplemental oxygen. while the patient's sleep apnea resolved on the final pressure settings during the study, her oxygen saturation was still persistently below 90%. I recommend that the patient be prescribed BPAP 18/8 cm H2O with 3 lpm of supplemental oxygen, size small F&P Eson nasl mask, BPAP filters/tubing and heated humidity. This should be used with all episodes of sleep.? Compliance should be reviewed within 31-90 days of starting therapy for usage greater than 4 hours per night greater than 70% of the nights. The patient should be asked about symptoms such as?excessive daytime sleepiness, quality of sleep, decreased nocturia, increased?mental functioning such as memory, mood, and concentration. Data The data obtained during this sleep study is adequate for interpretation. Certification This sleep study has been reviewed by a board certified sleep medicine physician.
== END 2024-07-14 06:32 | disposition home or self-care (01) ==
LOC: ANHCSM 08:14
PROVIDERS: PCP Family Medicine; Visit Provider Physician Assistant
DX: G47.33 Obstructive sleep apnea (adult) (pediatric) (principal); I10 Essential (primary) hypertension; Z85.820 Personal history of malignant melanoma of skin; M32.9 Systemic lupus erythematosus, unspecified
CPT/HCPCS: 95811

== ENCOUNTER 2024-08-07 13:56 | Inpatient (IN) | payer OTHER, SELFPAY ==
[2024-08-07] VITALS (10 sets, daily range): BP systolic 118–143; BP diastolic 65–96; PULSE 68–88; RESP 13–29; TEMP 36.6–36.7; O2SAT 95–100; BMI 54.5
--- NOTE | ~2024-08-07 | US_ITS ---
EXAMINATION: US venous doppler [facility] DATE: 08/07/2024 17:14 INDICATION: swelling . TECHNIQUE: Grayscale images without and with compression and Doppler images of the bilateral lower ex tremity veins were obtained. COMPARISON: 03/24/2024 FINDINGS: The right posterior tibial and peroneal veins were not adequately visualized. The right common femora l vein, profunda (deep) femoral vein, femoral vein, popliteal vein, gastrocnemius vein, and greater s aphenous vein are patent. The left popliteal, posterior tibial, peroneal veins, and gastrocnemius veins were not adequately vis ualized. The left common femoral vein, profunda (deep) femoral vein, femoral vein,, and greater saph enous vein are patent. IMPRESSION: Limited visualization of the lower extremity veins abdomen below the level of the knees as detailed a denise. No DVT detected in the adequately visualized veins. Reviewed, dictated and finalized at location K. N FACTORS SCIENTIST IMPRESSION: Limited visualization of the lower extremity veins abdomen below the level of t he knees as detailed above. No DVT detected in the adequately visualized veins.
--- NOTE | ~2024-08-07 | US_ITS ---
Limited ABDOMINAL ULTRASOUND (Doppler ultrasound interrogation techniques used as needed for this exa m.) Ordering provider: PRASANTH Turner History: . New transaminitis and elevated Bilirubin . Comparison: None. FINDINGS: PANCREAS: Obscured. PORTAL VEIN: Hepatopedal flow demonstrated. Pulsatile. Measures 1.3 cm. LIVER: Normal size and echotexture. The liver measures 17.5 cm. No focal hepatic lesions or perihepat ic fluid collections are identified. BILIARY DUCTS: No intra or extrahepatic biliary dilation. Common bile duct measures 3.4 mm in diamete r which is normal for patient's age. GALLBLADDER: Normal. No stones, sludge, gallbladder wall thickening or pericholecystic fluid. Wall th ickness is 1.6 mm. Negative sonographic Monte's sign. RIGHT KIDNEY: Normal size. Measures 12.7 x 5.8 x 6.1 cm. No hydronephrosis, solid renal mass, renal c alculi or perinephric fluid collections. No renal cysts. FREE FLUID: None visualized within the upper abdomen. IMPRESSION: normal limited abdominal ultrasound. Reviewed, dictated and finalized at location A. RIAL CONTROL SUPERVISOR
--- NOTE | ~2024-08-07 | XR_ITS ---
EXAMINATION: XR chest 1V portable Exam Date/Time: 08/07/2024 15:05 LOAD DISPATCHER HISTORY: SOA X 3 WEEKS Comparison: 05/10/2024. RESULT: Lines, tubes, and devices: Left axillary surgical clips. Lungs and pleura: Chronic right hemidiaphragm elevation. Low volumes with crowding. Mild diffuse ret icular opacities. Mild streaky bibasilar opacities. Cardiomediastinal silhouette: Stable. Other: No acute osseous or upper abdominal finding. IMPRESSION: Mild interstitial edema versus artifact from crowding. Mild bibasilar plexus/scar. Chronic right kristen diaphragm elevation. Reviewed, dictated and finalized at location K. DISPATCHER IMPRESSION: Mild interstitial edema versus artifact from crowding. Mild bibasilar plexus/sc ar. Chronic right hemidiaphragm elevation.
--- NOTE | 2024-08-07 14:34 | ECG_ITS ---
Test Date: 2024-08-07 14:46:54 Measurements Intervals [place] Rate: 69 P: 17 TX: 122 QRS: 53 QRSD: 90 T: 51 QT: 400 QTc: 431 Interpretive Statements SINUS RHYTHM Compared to ECG 03/24/2024 11:56:37 No significant changes Electronically Signed On 08-07-2024 15:17:56 PATTERN CHANGER by Dani Chu M.D.
[2024-08-07 14:48] LABS: Basophils Absolute Auto 0.1 K/mm3 (0.0-0.1); Basophils Percent Auto 0.7 % (0.2-1.2); Eosinophils Absolute Auto 0.2 K/mm3 (0-0.3); Eosinophils Percent Auto 1.9 % (0-4.4); Hematocrit 44.2 % (37.0-47.0); Hemoglobin 12.6 g/dL (12.0-15.0); Immature Granulocyte Absolute 0.12 K/mm3 (0.00-0.031); Immature Granulocyte Percent A 1.3 % (0-0.5); Lymphocytes Absolute Auto 0.99 K/mm3 (0.9-3.2); Lymphocytes Percent Auto 10.5 % (18.3-44.2); Mean Corpuscular HGB Conc 28.5 g/dl (32-36); Mean Corpuscular Volume 77.1 fl (80-100); Mean Platelet Volume 10.7 fl (7.4-10.4); Monocytes Percent Auto 10.6 % (2.6-8.5); Neutrophils Absolute Auto 7.1 K/mm3 (1.3-6.7); Nucleated Red Blood Cells Perc 2.1 % (0.0-0.2); Platelet Count Result 284 k/mm3 (150-375); Red Blood Count 5.73 M/mm3 (4.2-5.4); Red Cell Distribution Width 20.8 % (11.5-14.5); White Blood Count 9.4 K/mm3 (4.5-10.0)
[2024-08-07 14:55] LABS: Lactic Acid Reflex 1.7 mmol/L (0.7-2.0)
[2024-08-07 14:57] LABS: Alveolar/Arterial O2 Gradient 84.1 mmHg; Base Excess ABG 2.9 mEq/l (+/-2.0); Fractional Inspired Oxygen 32 %; Oxygen Content ABG 17.7 %vol (16.0-22.0); Oxyhemoglobin 93.5 % THb (90.0-100.0); PCO2 ABG 50.7 mmHg (35.0-45.0); PO2 ABG 84.7 mmHg (80.0-100.0); PO2 FiO2 Ratio Arterial Blood 2.65 %; Total Hemoglobin 13.4 g/dL (12.0-18.0); pH ABG 7.375 (7.350-7.450)
[2024-08-07 14:57] LABS: Alanine Aminotransferase 194 U/L (6-35); Albumin Level 3.4 g/dL (3.5-5.1); Alkaline Phosphatase 135 U/L (38-126); Anion Gap 4 mmol/L (4-12); Aspartate Amino Transferase 168 U/L (14-36); Bilirubin,Total 1.7 mg/dL (0.2-1.3); Blood Urea Nitrogen 67 mg/dL (7-17); Calcium 8.2 mg/dL (8.4-10.2); Carbon Dioxide 31 mmol/L (22-30); Chloride 100 mmol/L (98-107); Estimated CRCL calculation 59 ml/min; Estimated Glomerular Filt Rate 40; Glucose 97 mg/dL (65-110); Potassium 4.3 mmol/L (3.4-5.0); Sodium 135 mmol/L (137-145)
[2024-08-07 14:59] LABS: Device NASAL CANNULA; Modified Allen's Test Pass; Site Drawn RIGHT RADIAL
[2024-08-07 15:02] LABS: INR 1.6; Prothrombin Time 19.6 Seconds (11.1-14.7)
[2024-08-07 15:03] LABS: Partial Thromboplastin Time 28.7 Seconds (22.3-36.8)
[2024-08-07 15:08] LABS: NT Pro B Type Natriuretic Pept 2720 pg/mL (19.9-100); Troponin I 0.022 ng/mL (0.000-0.034)
[2024-08-07 15:14] LABS: Hypochromasia 1+; Platelet Estimate Adequate (Adequate); Schistocytes None Seen
[2024-08-07] MEDS: FUROSEMIDE INJ 40 MG/4 ML VIAL IV PUSH ×2 (15:33→21:12)
--- NOTE | 2024-08-07 15:48 | ED_ITS ---
HPI - SOB/Dyspnea General Chief Complaint: Shortness of Breath/Dyspnea Stated Complaint: low O2 Time Seen by Provider: 08/07/24 14:07 History of Present Illness HPI Narrative: Patient is a 49-year-old female who presents ER with low oxygen. She has been having worsening shortness of breath over last 5 days. Her mother for struck come in today. Patient found to be hypoxic on arrival. She does not wear oxygen and is now requiring 4 L nasal cannula. Patient reports increased swelli ng of her legs. Denies formal diagnosis of heart failure. She does take spironolactone and Lasix. No chest pain or chest pressure. She does have orthopnea. Related Data Home Medications Medication Instructions Recorded Confirmed hydroxychloroquine 200 mg tablet 200 mg PO BID 07/17/19 05/10/24 cyanocobalamin (vitamin B-12) 1,000 mcg PO DAILY 03/18/21 05/10/24 1,000 mcg tablet (Vitamin B-12) Allergies Allergy/AdvReac Type Severity Reaction Status Date / Time Penicillins AdvReac Mild Rash Verified 08/07/24 14:22 Sulfa (Sulfonamide AdvReac Mild Rash Verified 08/07/24 14:22 Antibiotics) Review of Systems Review of Systems: All systems reviewed & are unremarkable except as noted in HPI and below Constitutional: Constitutional: Reports no additional constitutional complaints ENT: Reports system reviewed and no additional complaints, except as documented Cardiovascular: Cardiovascular: Reports no additional cardiovascular complaints Respiratory: Respiratory: Denies cough, Reports dyspnea and Denies wheezing Gastrointestinal: Gastrointestinal: Reports no additional gastrointestinal complaints [facility] Past Medical History Medical History Acute respiratory failure with hypoxia Chronic venous insufficiency of lower extremity COVID-19 Essential (primary) hypertension (Unknown) Hypersomnia Lymphedema of both lower extremities Malignant melanoma of upper back (~05/2019) Melanoma 2019 STAS (obstructive sleep apnea) Port-A-Cath in place (~2018) SLE (systemic lupus erythematosus) (Unknown) Surgical History Surgical History History of removal of Port-a-Cath 2020 History of skin surgery melanoma - 06/22/2019 Hx of section (~2000) Neely teeth removed (~1989) Family History Family History Father Hypertension Sibling Lupus Social History Social History Smoking status: Never smoker Second hand tobacco smoke exposure: No Alcohol intake: current Alcohol use details: Just every once in awhile Substance use: never Substance use type: does not use Do You Feel Safe in your Home?: Yes Lack of Transportation: No Lack of Food: Never True Current Housing: I Have Housing Concerned About Future Housing: No Difficulty Paying Gas/Electric Bills: YES Difficulty Paying for Meds: No Currently Unemployed: No Education: Associate Degree Difficulty w/ Childcare or Family Care: No Living arrangements: with family Occupation/Education: unemployed Gender identity (if verbalized by the patient): Female Sexual Orientation (if Verbalized by the Patient): Straight or Heterosexual Spiritual care concerns: No Exam Narrative: GENERAL: Well-appearing, well-nourished, and in no acute distress. HEAD: Normocephalic, atraumatic. ENT: Mucous membranes moist. NECK: Supple. CHEST: Diminished lung sounds bilaterally with poor air movement with deep breath. HEART: Regular rate and rhythm. Normal peripheral pulses. ABDOMEN: Soft, nontender, nondistended. EXTREMITIES: Normal range of motion. 2+ edema. SKIN: Warm, dry, no rash. NEURO: Alert and oriented x3. PSYCH: Normal mood and affect. Course Course Emergency Course: Patient resting comfortably. Diuresis ordered. Admit for observation. Vital Signs Vital signs: Vital Signs Temperature 97.8 F 08/07/24 14:14 Pulse Rate 78 08/07/24 14:14 Respiratory Rate 24 H 08/07/24 14:14 Blood Pressure 139/91 H 08/07/24 14:14 Pulse Oximetry 99 08/07/24 14:14 Oxygen Delivery Nasal Cannula 08/07/24 14:14 Oxygen Flow Rate 4 08/07/24 14:14 Temperature 97.8 F 08/07/24 14:14 Pulse Rate 69 08/07/24 17:38 Respiratory Rate 18 08/07/24 17:38 Blood Pressure 143/81 H 08/07/24 17:38 Pulse Oximetry 100 08/07/24 17:38 Oxygen Delivery Nasal Cannula 08/07/24 14:14 Oxygen Flow Rate 4 08/07/24 14:14 MDM - SOB/Dyspnea Lab Data 08/07/24 14:39 08/07/24 14:39 Labs: Lab Results 08/07/24 08/07/24 08/07/24 Range/Units 14:39 14:39 14:39 WBC 9.4 (4.5-10.0) K/mm3 RBC 5.73 H (4.2-5.4) M/mm3 Hgb 12.6 (12.0-15.0) g/dL Hct 44.2 (37.0-47.0) % MCV 77.1 L (80-100) fl MCH 22.0 L (26-34) pg MCHC 28.5 L (32-36) g/dl RDW 20.8 H (11.5-14.5) % Plt Count 284 (150-375) k/mm3 MPV 10.7 H (7.4-10.4) fl Immature Gran % (Auto) 1.3 H (0-0.5) % Neut % (Auto) 75.0 H (45.5-73.1) % Lymph % (Auto) 10.5 L (18.3-44.2) % Coos % (Auto) 10.6 H (2.6-8.5) % Eos % (Auto) 1.9 (0-4.4) % Baso % (Auto) 0.7 (0.2-1.2) % Lymph # (Auto) 0.99 (0.9-3.2) K/mm3 Coos # (Auto) 1.0 H (0.1-0.6) K/mm3 Eos # (Auto) 0.2 (0-0.3) K/mm3 Baso # (Auto) 0.1 (0.0-0.1) K/mm3 Abs Immat Gran (auto) 0.12 H (0.00-0.031) K/mm3 Absolute Neuts (auto) 7.1 H (1.3-6.7) K/mm3 Absolute Nucleated RBC 0.200 H (0.0-0.012) K/mm3 Nucleated RBC % 2.1 H (0.0-0.2) % Platelet Estimate Adequate (Adequate) % Immature Plt Fraction 5.0 (0.9-11.2) % Hypochromasia 1+ Schistocytes None seen PT 19.6 H (11.1-14.7) Seconds INR 1.6 APTT 28.7 (22.3-36.8) Seconds Sodium Cancelled 135 L Potassium Cancelled 4.3 Chloride Cancelled Carbon Dioxide Anion Gap BUN Creatinine Estim Creat Clear Calc Estimated GFR Glucose Lactic Acid (0.7-2.0) mmol/L Calcium Total Bilirubin AST ALT Alkaline Phosphatase Troponin I (0.000-0.034) ng/mL NT-Pro-B Natriuret Pep Total Protein Albumin 08/07/24 08/07/24 08/07/24 Range/Units 14:39 14:39 14:39 WBC (4.5-10.0) K/mm3 RBC (4.2-5.4) M/mm3 Hgb (12.0-15.0) g/dL Hct (37.0-47.0) % MCV (80-100) fl MCH (26-34) pg MCHC (32-36) g/dl RDW (11.5-14.5) % Plt Count (150-375) k/mm3 MPV (7.4-10.4) fl Immature Gran % (Auto) (0-0.5) % Neut % (Auto) (45.5-73.1) % Lymph % (Auto) (18.3-44.2) % Coos % (Auto) (2.6-8.5) % Eos % (Auto) (0-4.4) % Baso % (Auto) (0.2-1.2) % Lymph # (Auto) (0.9-3.2) K/mm3 Coos # (Auto) (0.1-0.6) K/mm3 Eos # (Auto) (0-0.3) K/mm3 Baso # (Auto) (0.0-0.1) K/mm3 Abs Immat Gran (auto) (0.00-0.031) K/mm3 Absolute Neuts (auto) (1.3-6.7) K/mm3 Absolute Nucleated RBC (0.0-0.012) K/mm3 Nucleated RBC % (0.0-0.2) % Platelet Estimate (Adequate) % Immature Plt Fraction (0.9-11.2) % Hypochromasia Schistocytes PT (11.1-14.7) Seconds INR APTT (22.3-36.8) Seconds Sodium Potassium Chloride 100 Carbon Dioxide Cancelled 31 H Anion Gap Cancelled 4 BUN Cancelled Creatinine Estim Creat Clear Calc Estimated GFR Glucose Lactic Acid (0.7-2.0) mmol/L Calcium Total Bilirubin AST ALT Alkaline Phosphatase Troponin I (0.000-0.034) ng/mL NT-Pro-B Natriuret Pep Total Protein Albumin 08/07/24 08/07/24 08/07/24 Range/Units 14:39 14:39 14:39 WBC (4.5-10.0) K/mm3 RBC (4.2-5.4) M/mm3 Hgb (12.0-15.0) g/dL Hct (37.0-47.0) % MCV (80-100) fl MCH (26-34) pg MCHC (32-36) g/dl RDW (11.5-14.5) % Plt Count (150-375) k/mm3 MPV (7.4-10.4) fl Immature Gran % (Auto) (0-0.5) % Neut % (Auto) (45.5-73.1) % Lymph % (Auto) (18.3-44.2) % Coos % (Auto) (2.6-8.5) % Eos % (Auto) (0-4.4) % Baso % (Auto) (0.2-1.2) % Lymph # (Auto) (0.9-3.2) K/mm3 Coos # (Auto) (0.1-0.6) K/mm3 Eos # (Auto) (0-0.3) K/mm3 Baso # (Auto) (0.0-0.1) K/mm3 Abs Immat Gran (auto) (0.00-0.031) K/mm3 Absolute Neuts (auto) (1.3-6.7) K/mm3 Absolute Nucleated RBC (0.0-0.012) K/mm3 Nucleated RBC % (0.0-0.2) % Platelet Estimate (Adequate) % Immature Plt Fraction (0.9-11.2) % Hypochromasia Schistocytes PT (11.1-14.7) Seconds INR APTT (22.3-36.8) Seconds Sodium Potassium Chloride Carbon Dioxide Anion Gap BUN 67 H D Creatinine Cancelled 1.40 H Estim Creat Clear Calc Cancelled 59 Estimated GFR Cancelled Glucose Lactic Acid (0.7-2.0) mmol/L Calcium Total Bilirubin AST ALT Alkaline Phosphatase Troponin I (0.000-0.034) ng/mL NT-Pro-B Natriuret Pep Total Protein Albumin 08/07/24 08/07/24 08/07/24 Range/Units 14:39 14:39 14:39 WBC (4.5-10.0) K/mm3 RBC (4.2-5.4) M/mm3 Hgb (12.0-15.0) g/dL Hct (37.0-47.0) % MCV (80-100) fl MCH (26-34) pg MCHC (32-36) g/dl RDW (11.5-14.5) % Plt Count (150-375) k/mm3 MPV (7.4-10.4) fl Immature Gran % (Auto) (0-0.5) % Neut % (Auto) (45.5-73.1) % Lymph % (Auto) (18.3-44.2) % Coos % (Auto) (2.6-8.5) % Eos % (Auto) (0-4.4) % Baso % (Auto) (0.2-1.2) % Lymph # (Auto) (0.9-3.2) K/mm3 Coos # (Auto) (0.1-0.6) K/mm3 Eos # (Auto) (0-0.3) K/mm3 Baso # (Auto) (0.0-0.1) K/mm3 Abs Immat Gran (auto) (0.00-0.031) K/mm3 Absolute Neuts (auto) (1.3-6.7) K/mm3 Absolute Nucleated RBC (0.0-0.012) K/mm3 Nucleated RBC % (0.0-0.2) % Platelet Estimate (Adequate) % Immature Plt Fraction (0.9-11.2) % Hypochromasia Schistocytes PT (11.1-14.7) Seconds INR APTT (22.3-36.8) Seconds Sodium Potassium Chloride Carbon Dioxide Anion Gap BUN Creatinine Estim Creat Clear Calc Estimated GFR 40 L Glucose Cancelled 97 Lactic Acid 1.7 (0.7-2.0) mmol/L Calcium Cancelled 8.2 L Total Bilirubin Cancelled AST ALT Alkaline Phosphatase Troponin I (0.000-0.034) ng/mL NT-Pro-B Natriuret Pep Total Protein Albumin 08/07/24 08/07/24 08/07/24 Range/Units 14:39 14:39 14:39 WBC (4.5-10.0) K/mm3 RBC (4.2-5.4) M/mm3 Hgb (12.0-15.0) g/dL Hct (37.0-47.0) % MCV (80-100) fl MCH (26-34) pg MCHC (32-36) g/dl RDW (11.5-14.5) % Plt Count (150-375) k/mm3 MPV (7.4-10.4) fl Immature Gran % (Auto) (0-0.5) % Neut % (Auto) (45.5-73.1) % Lymph % (Auto) (18.3-44.2) % Coos % (Auto) (2.6-8.5) % Eos % (Auto) (0-4.4) % Baso % (Auto) (0.2-1.2) % Lymph # (Auto) (0.9-3.2) K/mm3 Coos # (Auto) (0.1-0.6) K/mm3 Eos # (Auto) (0-0.3) K/mm3 Baso # (Auto) (0.0-0.1) K/mm3 Abs Immat Gran (auto) (0.00-0.031) K/mm3 Absolute Neuts (auto) (1.3-6.7) K/mm3 Absolute Nucleated RBC (0.0-0.012) K/mm3 Nucleated RBC % (0.0-0.2) % Platelet Estimate (Adequate) % Immature Plt Fraction (0.9-11.2) % Hypochromasia Schistocytes PT (11.1-14.7) Seconds INR APTT (22.3-36.8) Seconds Sodium Potassium Chloride Carbon Dioxide Anion Gap BUN Creatinine Estim Creat Clear Calc Estimated GFR Glucose Lactic Acid (0.7-2.0) mmol/L Calcium Total Bilirubin 1.7 H AST Cancelled 168 H ALT Cancelled 194 H Alkaline Phosphatase Cancelled Troponin I (0.000-0.034) ng/mL NT-Pro-B Natriuret Pep Total Protein Albumin 08/07/24 08/07/24 08/07/24 Range/Units 14:39 14:39 14:39 WBC (4.5-10.0) K/mm3 RBC (4.2-5.4) M/mm3 Hgb (12.0-15.0) g/dL Hct (37.0-47.0) % MCV (80-100) fl MCH (26-34) pg MCHC (32-36) g/dl RDW (11.5-14.5) % Plt Count (150-375) k/mm3 MPV (7.4-10.4) fl Immature Gran % (Auto) (0-0.5) % Neut % (Auto) (45.5-73.1) % Lymph % (Auto) (18.3-44.2) % Coos % (Auto) (2.6-8.5) % Eos % (Auto) (0-4.4) % Baso % (Auto) (0.2-1.2) % Lymph # (Auto) (0.9-3.2) K/mm3 Coos # (Auto) (0.1-0.6) K/mm3 Eos # (Auto) (0-0.3) K/mm3 Baso # (Auto) (0.0-0.1) K/mm3 Abs Immat Gran (auto) (0.00-0.031) K/mm3 Absolute Neuts (auto) (1.3-6.7) K/mm3 Absolute Nucleated RBC (0.0-0.012) K/mm3 Nucleated RBC % (0.0-0.2) % Platelet Estimate (Adequate) % Immature Plt Fraction (0.9-11.2) % Hypochromasia Schistocytes PT (11.1-14.7) Seconds INR APTT (22.3-36.8) Seconds Sodium Potassium Chloride Carbon Dioxide Anion Gap BUN Creatinine Estim Creat Clear Calc Estimated GFR Glucose Lactic Acid (0.7-2.0) mmol/L Calcium Total Bilirubin AST ALT Alkaline Phosphatase 135 H Troponin I 0.022 (0.000-0.034) ng/mL NT-Pro-B Natriuret Pep Cancelled 2720 H Total Protein Cancelled 7.0 Albumin Cancelled 08/07/24 Range/Units 14:39 WBC (4.5-10.0) K/mm3 RBC (4.2-5.4) M/mm3 Hgb (12.0-15.0) g/dL Hct (37.0-47.0) % MCV (80-100) fl MCH (26-34) pg MCHC (32-36) g/dl RDW (11.5-14.5) % Plt Count (150-375) k/mm3 MPV (7.4-10.4) fl Immature Gran % (Auto) (0-0.5) % Neut % (Auto) (45.5-73.1) % Lymph % (Auto) (18.3-44.2) % Coos % (Auto) (2.6-8.5) % Eos % (Auto) (0-4.4) % Baso % (Auto) (0.2-1.2) % Lymph # (Auto) (0.9-3.2) K/mm3 Coos # (Auto) (0.1-0.6) K/mm3 Eos # (Auto) (0-0.3) K/mm3 Baso # (Auto) (0.0-0.1) K/mm3 Abs Immat Gran (auto) (0.00-0.031) K/mm3 Absolute Neuts (auto) (1.3-6.7) K/mm3 Absolute Nucleated RBC (0.0-0.012) K/mm3 Nucleated RBC % (0.0-0.2) % Platelet Estimate (Adequate) % Immature Plt Fraction (0.9-11.2) % Hypochromasia Schistocytes PT (11.1-14.7) Seconds INR APTT (22.3-36.8) Seconds Sodium Potassium Chloride Carbon Dioxide Anion Gap BUN Creatinine Estim Creat Clear Calc Estimated GFR Glucose Lactic Acid (0.7-2.0) mmol/L Calcium Total Bilirubin AST ALT Alkaline Phosphatase Troponin I (0.000-0.034) ng/mL NT-Pro-B Natriuret Pep Total Protein Albumin 3.4 L ABG Data ABG results: 08/07/24 14:55 Puncture Site Right radial ABG pH 7.375 ABG pCO2 50.7 H ABG pO2 84.7 ABG PO2/FiO2 Ratio 2.65 ABG HCO3 29.0 H ABG O2 Saturation 96.0 ABG O2 Content 17.7 ABG Base Excess 2.9 A-a Gradient 84.1 Oxyhemoglobin 93.5 Total Hemoglobin 13.4 O2 Delivery Device Nasal cannula O2 Liters/Min 3.0 FiO2 32 Critical Care Time Critical Care Time Critical Care Time: Yes Total Critical Care Time: 35 Discharge Plan Discharge Clinical Impression: Acute exacerbation of CHF (congestive heart failure) Patient Disposition: Still a Patient Condition: Stable
--- NOTE | 2024-08-07 20:13 | P.HP_ITS ---
H&P: HPI History of Present Illness Date/Time: 08/07/24 23:13 Chief Complaint: Shortness of breath, leg swelling Narrative: 49-year-old female with a past medical history of morbid obesity BMI greater than 60, chronic hypercarbic respiratory failure (obesity hypoventilation likely), severe restrictive ventilatory defect chronic venous stasis and lymphedema, essential hypertension, obstructive sleep apnea, lupus, diastolic dysfunction, moderate tricuspid regurgitation and elevated right atrial pressures who presented to the ER with shortness of breath. Patient was recently hospitalized in February for acute hypoxic respiratory failure on chronic hypercarbic respiratory failure. Patient was suspected to have obstructive sleep apnea and or obesity hypoventilation syndrome. She had an echocardiogram at that time which demonstrated and EF of 55-60%, diastolic dysfunction, elevated E/E, [id number] tricuspid regurgitation and elevated right atrial pressures. She was discharged home on Lasix, spironolactone and Jardiance. Her weight at the time of last discharge was 122 kg. Unfortunately she reports that she does not wear self at home and did not notice that she was gaining weight. She did notice that she was developing significant lower extremity swelling. She denies any calf pain. She has been having increased shortness breast most notably with exertion. She does have chronic orthopnea and sleeps with the head of her bed elevated to about 30? the lows According to ER documentation pains weight is currently 145 kg. Patient reports increased shortness of breath for the last week and was 86% on room air on arrival to the ER. She was placed on 4 L nasal cannula on arrival was satting 99%. She reports that she feels much better after receiving Lasix in the ER. She was started on BiPAP the diet ordered prior to my evaluation. She reports that she feels comfortable on the BiPAP areas she has not been started on the BiPAP as of yet at home because she had not had a chance to follow-up regarding her polysomnogram results. Polysomnogram 07/24/2024 demonstrated moderate sleep apnea recommended treatment with BiPAP 16/04 with 3L of bleed in oxygen. Review of Systems 2 Review of Systems: 12 systems were reviewed with pertinent positives and negatives per HPI. Except as documented in the HPI, all other systems were reviewed and are negative. [facility] Past Medical History Medical History (Updated 08/07/24 @ 20:40 by Leona Tyler DO) Morbid obesity with body mass index (BMI) greater than or equal to 50 BMI 60.6 08/07/2024 Restrictive lung disease secondary to obesity Noted to be severe on PFTs from 2014 Moderate tricuspid regurgitation Diastolic heart failure Chronic hypercapnic respiratory failure CHF (congestive heart failure) Lymphedema of both lower extremities Chronic venous insufficiency of lower extremity COVID-[address] (~2018) Essential (primary) hypertension (Unknown) SLE (systemic lupus erythematosus) (Unknown) STAS (obstructive sleep apnea) Polysomnogram 06/2024 demonstrated moderate obstructive sleep apnea with recommended BiPAP of 18/8 with 3 L of bleed in O2 Malignant melanoma of upper back (~05/2019) Surgical History Surgical History History of removal of Port-a-Cath 2020 [place] teeth removed (~1989) Hx of section (~2000) History of skin surgery melanoma - 06/22/2019 Family History Family History Father Hypertension Sibling Lupus Social History Social History (Updated 08/08/24 @ 07:16 by Leona Tyler DO) Social History: Patient lives at home with her parents. She works for [employer]. She has 1 daughter who was in her 20. She ambulates without assistance. She is a lifelong nonsmoker. She occasionally drinks alcohol once every couple months. She denies illicit substance use. Code status: Full code Surrogate decision maker: Daughter Smoking status: Never smoker Second hand tobacco smoke exposure: No Alcohol intake: current Alcohol use details: Just every once in awhile Substance use: never Substance use type: does not use Do You Feel Safe in your Home?: Yes Lack of Transportation: No Lack of Food: Never True Current Housing: I Have Housing Concerned About Future Housing: No Difficulty Paying Gas/Electric Bills: YES Difficulty Paying for Meds: No Currently Unemployed: No Education: Associate Degree Difficulty w/ Childcare or Family Care: No Living arrangements: with family Gender identity (if verbalized by the patient): Female Sexual Orientation (if Verbalized by the Patient): Straight or Heterosexual Spiritual care concerns: No Meds Home Medications and Allergies Home Medications ?Medication ?Instructions ?Recorded ?Confirmed ?Type hydroxychloroquine 200 mg tablet 200 mg PO BID 07/17/19 08/07/24 History cyanocobalamin (vitamin B-12) 1,000 mcg PO DAILY 03/18/21 08/07/24 History 1,000 mcg tablet (Vitamin B-12) empagliflozin 10 mg tablet 10 mg PO DAILY #30 tabs 03/27/24 08/07/24 Rx (Jardiance) albuterol sulfate 90 mcg/actuation 2 puff inhalation PRN PRN 05/10/24 08/07/24 Rx aerosol inhaler (Proventil HFA) Shortness Of Breath Or Wheezing #8.5 grams spironolactone 25 mg tablet 12.5 mg (1/2 x 25 mg) PO DAILY #45 06/26/24 08/07/24 Rx tabs furosemide 40 mg tablet 40 mg PO DAILY #90 tabs 07/31/24 08/07/24 Rx Allergies Allergy/AdvReac Type Severity Reaction Status Date / Time Penicillins AdvReac Mild Rash Verified 08/07/24 19:17 Sulfa (Sulfonamide AdvReac Mild Rash Verified 08/07/24 19:17 Antibiotics) Vital Signs Vital Signs - 24 hr 08/07/24 14:14 08/07/24 14:32 08/07/24 15:27 Temperature 97.8 F Pulse Rate 78 86 68 Respiratory Rate 24 H 13 Blood Pressure 139/91 H 118/96 H Pulse Oximetry 99 97 Oxygen Delivery Nasal Cannula Oxygen Flow Rate 4 08/07/24 16:37 08/07/24 17:38 08/07/24 19:23 Temperature Pulse Rate 72 69 85 Respiratory Rate 20 18 20 Blood Pressure 139/90 143/81 H 127/71 Pulse Oximetry 95 100 97 Oxygen Delivery Oxygen Flow Rate Exam 2 Narrative: Weight 145.4 kg BMI 60.6 Const: Other: Morbidly obese, no acute distress, appears stated age HENMT: Other: Mucous membranes are tacky, no oral pharyngeal erythema, exam limited due to BiPAP, head is normocephalic atraumatic Eyes: Other: Pupils are equal and reactive, no scleral icterus, no conjunctival pallor Neck: Other: Large neck circumference, supple, nontender Resp: Other: Crackles at bilateral bases, no increased work of breathing, no tachypnea Cardio: Other: Regular rate, regular rhythm, 2+ bilateral radial pulse, 2+ bilateral pedal pulses, difficult to assess for JVD due to body habitus GI: Other: Obese, nontender, positive bowel sounds Skin: Other: Mild Chronic venous stasis changes bilateral lower extremities left greater than right, no jaundice Neuro: Other: Alert orient x4, speech is clear, no facial asymmetry, no localizing neurologic deficits noted during the course of conversation Extrem: Other: Marked pitting edema of the ankles and up into the lower extremities, 2+, 5/5 replacer strength bilateral Psych: Other: Appropriate mood and affect, pleasant and cooperative, judgment and insight intact H&P: Results Labs Labs: Laboratory Tests 08/07/24 14:39 08/07/24 14:39 08/07/24 08/07/24 08/07/24 14:39 14:39 14:39 WBC 9.4 RBC 5.73 H Hgb 12.6 Hct 44.2 MCV 77.1 L MCH 22.0 L MCHC 28.5 L RDW 20.8 H Plt Count 284 MPV 10.7 H Immature Gran % (Auto) 1.3 H Neut % (Auto) 75.0 H Lymph % (Auto) 10.5 L [place] % (Auto) 10.6 H Eos % (Auto) 1.9 Baso % (Auto) 0.7 Lymph # (Auto) 0.99 [place] # (Auto) 1.0 H Eos # (Auto) 0.2 Baso # (Auto) 0.1 Abs Immat Gran (auto) 0.12 H Absolute Neuts (auto) 7.1 H Absolute Nucleated RBC 0.200 H Nucleated RBC % 2.1 H Platelet Estimate Adequate % Immature Plt Fraction 5.0 Hypochromasia 1+ Schistocytes None seen PT 19.6 H INR 1.6 APTT 28.7 Puncture Site ABG pH ABG pCO2 ABG pO2 ABG PO2/FiO2 Ratio ABG HCO3 ABG O2 Saturation ABG O2 Content ABG Base Excess A-a Gradient Oxyhemoglobin Total Hemoglobin O2 Delivery Device O2 Liters/Min FiO2 Sodium Cancelled 135 L Potassium Cancelled 4.3 Chloride Cancelled Carbon Dioxide Anion Gap BUN Creatinine Estim Creat Clear Calc Estimated GFR Glucose Lactic Acid Calcium Total Bilirubin AST ALT Alkaline Phosphatase Troponin I NT-Pro-B Natriuret Pep Total Protein Albumin 08/07/24 08/07/24 08/07/24 14:39 14:39 14:39 WBC RBC Hgb Hct MCV MCH MCHC RDW Plt Count MPV Immature Gran % (Auto) Neut % (Auto) Lymph % (Auto) [place] % (Auto) Eos % (Auto) Baso % (Auto) Lymph # (Auto) [place] # (Auto) Eos # (Auto) Baso # (Auto) Abs Immat Gran (auto) Absolute Neuts (auto) Absolute Nucleated RBC Nucleated RBC % Platelet Estimate % Immature Plt Fraction Hypochromasia Schistocytes PT INR APTT Puncture Site ABG pH ABG pCO2 ABG pO2 ABG PO2/FiO2 Ratio ABG HCO3 ABG O2 Saturation ABG O2 Content ABG Base Excess A-a Gradient Oxyhemoglobin Total Hemoglobin O2 Delivery Device O2 Liters/Min FiO2 Sodium Potassium Chloride 100 Carbon Dioxide Cancelled 31 H Anion Gap Cancelled 4 BUN Cancelled Creatinine Estim Creat Clear Calc Estimated GFR Glucose Lactic Acid Calcium Total Bilirubin AST ALT Alkaline Phosphatase Troponin I NT-Pro-B Natriuret Pep Total Protein Albumin 08/07/24 08/07/24 08/07/24 14:39 14:39 14:39 WBC RBC Hgb Hct MCV MCH MCHC RDW Plt Count MPV Immature Gran % (Auto) Neut % (Auto) Lymph % (Auto) [place] % (Auto) Eos % (Auto) Baso % (Auto) Lymph # (Auto) [place] # (Auto) Eos # (Auto) Baso # (Auto) Abs Immat Gran (auto) Absolute Neuts (auto) Absolute Nucleated RBC Nucleated RBC % Platelet Estimate % Immature Plt Fraction Hypochromasia Schistocytes PT INR APTT Puncture Site ABG pH ABG pCO2 ABG pO2 ABG PO2/FiO2 Ratio ABG HCO3 ABG O2 Saturation ABG O2 Content ABG Base Excess A-a Gradient Oxyhemoglobin Total Hemoglobin O2 Delivery Device O2 Liters/Min FiO2 Sodium Potassium Chloride Carbon Dioxide Anion Gap BUN 67 H D Creatinine Cancelled 1.40 H Estim Creat Clear Calc Cancelled 59 Estimated GFR Cancelled Glucose Lactic Acid Calcium Total Bilirubin AST ALT Alkaline Phosphatase Troponin I NT-Pro-B Natriuret Pep Total Protein Albumin 08/07/24 08/07/24 08/07/24 14:39 14:39 14:39 WBC RBC Hgb Hct MCV MCH MCHC RDW Plt Count MPV Immature Gran % (Auto) Neut % (Auto) Lymph % (Auto) [place] % (Auto) Eos % (Auto) Baso % (Auto) Lymph # (Auto) [place] # (Auto) Eos # (Auto) Baso # (Auto) Abs Immat Gran (auto) Absolute Neuts (auto) Absolute Nucleated RBC Nucleated RBC % Platelet Estimate % Immature Plt Fraction Hypochromasia Schistocytes PT INR APTT Puncture Site ABG pH ABG pCO2 ABG pO2 ABG PO2/FiO2 Ratio ABG HCO3 ABG O2 Saturation ABG O2 Content ABG Base Excess A-a Gradient Oxyhemoglobin Total Hemoglobin O2 Delivery Device O2 Liters/Min FiO2 Sodium Potassium Chloride Carbon Dioxide Anion Gap BUN Creatinine Estim Creat Clear Calc Estimated GFR 40 L Glucose Cancelled 97 Lactic Acid 1.7 Calcium Cancelled 8.2 L Total Bilirubin Cancelled AST ALT Alkaline Phosphatase Troponin I NT-Pro-B Natriuret Pep Total Protein Albumin 08/07/24 08/07/24 08/07/24 14:39 14:39 14:39 WBC RBC Hgb Hct MCV MCH MCHC RDW Plt Count MPV Immature Gran % (Auto) Neut % (Auto) Lymph % (Auto) [place] % (Auto) Eos % (Auto) Baso % (Auto) Lymph # (Auto) [place] # (Auto) Eos # (Auto) Baso # (Auto) Abs Immat Gran (auto) Absolute Neuts (auto) Absolute Nucleated RBC Nucleated RBC % Platelet Estimate % Immature Plt Fraction Hypochromasia Schistocytes PT INR APTT Puncture Site ABG pH ABG pCO2 ABG pO2 ABG PO2/FiO2 Ratio ABG HCO3 ABG O2 Saturation ABG O2 Content ABG Base Excess A-a Gradient Oxyhemoglobin Total Hemoglobin O2 Delivery Device O2 Liters/Min FiO2 Sodium Potassium Chloride Carbon Dioxide Anion Gap BUN Creatinine Estim Creat Clear Calc Estimated GFR Glucose Lactic Acid Calcium Total Bilirubin 1.7 H AST Cancelled 168 H ALT Cancelled 194 H Alkaline Phosphatase Cancelled Troponin I NT-Pro-B Natriuret Pep Total Protein Albumin 08/07/24 08/07/24 08/07/24 14:39 14:39 14:39 WBC RBC Hgb Hct MCV MCH MCHC RDW Plt Count MPV Immature Gran % (Auto) Neut % (Auto) Lymph % (Auto) [place] % (Auto) Eos % (Auto) Baso % (Auto) Lymph # (Auto) [place] # (Auto) Eos # (Auto) Baso # (Auto) Abs Immat Gran (auto) Absolute Neuts (auto) Absolute Nucleated RBC Nucleated RBC % Platelet Estimate % Immature Plt Fraction Hypochromasia Schistocytes PT INR APTT Puncture Site ABG pH ABG pCO2 ABG pO2 ABG PO2/FiO2 Ratio ABG HCO3 ABG O2 Saturation ABG O2 Content ABG Base Excess A-a Gradient Oxyhemoglobin Total Hemoglobin O2 Delivery Device O2 Liters/Min FiO2 Sodium Potassium Chloride Carbon Dioxide Anion Gap BUN Creatinine Estim Creat Clear Calc Estimated GFR Glucose Lactic Acid Calcium Total Bilirubin AST ALT Alkaline Phosphatase 135 H Troponin I 0.022 NT-Pro-B Natriuret Pep Cancelled 2720 H Total Protein Cancelled 7.0 Albumin Cancelled 08/07/24 08/07/24 14:39 14:55 WBC RBC Hgb Hct MCV MCH MCHC RDW Plt Count MPV Immature Gran % (Auto) Neut % (Auto) Lymph % (Auto) [place] % (Auto) Eos % (Auto) Baso % (Auto) Lymph # (Auto) [place] # (Auto) Eos # (Auto) Baso # (Auto) Abs Immat Gran (auto) Absolute Neuts (auto) Absolute Nucleated RBC Nucleated RBC % Platelet Estimate % Immature Plt Fraction Hypochromasia Schistocytes PT INR APTT Puncture Site Right radial ABG pH 7.375 ABG pCO2 50.7 H ABG pO2 84.7 ABG PO2/FiO2 Ratio 2.65 ABG HCO3 29.0 H ABG O2 Saturation 96.0 ABG O2 Content 17.7 ABG Base Excess 2.9 A-a Gradient 84.1 Oxyhemoglobin 93.5 Total Hemoglobin 13.4 O2 Delivery Device Nasal cannula O2 Liters/Min 3.0 FiO2 32 Sodium Potassium Chloride Carbon Dioxide Anion Gap BUN Creatinine Estim Creat Clear Calc Estimated GFR Glucose Lactic Acid Calcium Total Bilirubin AST ALT Alkaline Phosphatase Troponin I NT-Pro-B Natriuret Pep Total Protein Albumin 3.4 L Impressions Chest X-Ray 08/07/24 15:18 IMPRESSION: Mild interstitial edema versus artifact from crowding. Mild bibasilar plexus/scar. Chronic right hemidiaphragm elevation. Venous Doppler Study 08/07/24 17:15 IMPRESSION: Limited visualization of the lower extremity veins abdomen below the level of the knees as detailed above. No DVT detected in the adequately visualized veins. EKG demonstrated normal sinus rhythm with regular rate and intervals All imaging and EKGs personally reviewed and interpreted. And unless stated otherwise agree with radiologic and cardiology interpretation. Assessment and Plan Assessment and plan (1) Acute exacerbation of CHF (congestive heart failure): Code(s): I50.9 - Heart failure, unspecified Status: Acute (2) Morbid obesity with body mass index (BMI) greater than or equal to 50: Code(s): E66.01 - Morbid (severe) obesity due to excess calories Status: Acute (3) Acute hypoxic respiratory failure: Code(s): J96.01 - Acute respiratory failure with hypoxia Status: Acute (4) STAS (obstructive sleep apnea): Code(s): G47.33 - Obstructive sleep apnea (adult) (pediatric) Status: Acute (5) Transaminitis: Code(s): R74.01 - Elevation of levels of liver transaminase levels Status: Acute (6) Hyponatremia: Code(s): E87.1 - Hypo-osmolality and hyponatremia Status: Acute (7) Acute kidney injury: Code(s): N17.9 - Acute kidney failure, unspecified Status: Acute Plan Acute on chronic CHF exacerbation. CHF is due to diastolic dysfunction and likely elevated his right-sided pressures due to patient's of obesity, untreated obstructive sleep apnea and tricuspid valve regurgitation. Patient has been admitted and placed on Lasix 40 mg IV b.i.d.. Will continue monitor strict I&O's and daily weights. Patient did have sleep study couple of weeks ago but has not yet had follow-up to initiate therapy. Will place patient on nasal cannula oxygen while awake and titrate to maintain O2 sats greater than 92%. Will initiate BiPAP therapy 18/8 with minimum of 3 L bleed in O2. Will continue the patient's home spironolactone and Jardiance. The patient does have evidence significant acute transaminitis I am assuming that this is due to passive congestion of the liver due to heart failure. Will monitor CMP and hopefully this will improve with diuresis if not will pursue further evaluation at that time. Patient likely also has some component of underlying hepatic steatosis. Patient also has evidence of acute kidney injury I am assuming due to relative hypoperfusion with heart failure. And hyponatremia presumed be due to volume overload status. Will monitor electrolyte panel daily. Will check TSH. Patient has been admitted as observation status. Quality VTE Prophylaxis VTE prophylaxis: pharmacologic ordered (Lovenox 40 mg subQ q.12 hours) Hospitalist [facility] Advance Care Plan I have confirmed that the patient's Advanced Care Plan is present, code status is documented, or surrogate decision maker is listed in patient medical record.: Yes Medication Reconciliation I have utilized all available resources to obtain, update and review the patients current medications (includes all prescriptions, OTC, herbals, cannabis, and nutritional supplements).: Yes
--- NOTE | 2024-08-07 20:44 | ADMGEN ---
This patient, Mara Us, was admitted to Medical Room 243-01. Patient/family oriented to hospital policies and general routines including ID bracelet, bed and alarms, visiting hours, pain management, procedures, bathroom and other care routines, personal items, smoking policy, room service/diet, and visiting hours. Information on how to activate the Rapid Response Team has been discussed. Patient/Family are encouraged to report perceived risks to care and to ask questions if they do not understand what they are told or what they should do.
[2024-08-07 20:56] LABS: Troponin I 0.029 ng/mL (0.000-0.034)
[2024-08-07] MEDS: ENOXAPARIN 40 MG/0.4 ML SYRINGE SUB-Q (21:12)
[2024-08-08] VITALS (11 sets, daily range): BP systolic 107–130; BP diastolic 56–71; PULSE 73–100; RESP 16–25; TEMP 36.4–36.9; O2SAT 93–97
[2024-08-08 07:21] LABS: Hematocrit 41.7 % (37.0-47.0); Hemoglobin 11.6 g/dL (12.0-15.0); Immature Platelet Fraction Pct 5.7 % (0.9-11.2); Mean Corpuscular HGB Conc 27.8 g/dl (32-36); Mean Corpuscular Hemoglobin 22.3 pg (26-34); Mean Corpuscular Volume 80.2 fl (80-100); Mean Platelet Volume 11.1 fl (7.4-10.4); Platelet Count Result 242 k/mm3 (150-375); Red Cell Distribution Width 20.2 % (11.5-14.5); White Blood Count 7.1 K/mm3 (4.5-10.0)
[2024-08-08 07:58] LABS: Alanine Aminotransferase 189 U/L (6-35); Albumin Level 2.9 g/dL (3.5-5.1); Alkaline Phosphatase 111 U/L (38-126); Anion Gap 2 mmol/L (4-12); Aspartate Amino Transferase 151 U/L (14-36); Bilirubin,Total 1.4 mg/dL (0.2-1.3); Blood Urea Nitrogen 60 mg/dL (7-17); Calcium 7.9 mg/dL (8.4-10.2); Carbon Dioxide 36 mmol/L (22-30); Chloride 101 mmol/L (98-107); Estimated CRCL calculation 64 ml/min; Estimated Glomerular Filt Rate 48; Glucose 90 mg/dL (65-110); Magnesium 2.1 mg/dL (1.6-2.3); Potassium 4.1 mmol/L (3.4-5.0); Sodium 139 mmol/L (137-145)
[2024-08-08] MEDS: CYANOCOBALAMIN 1,000 MCG TABLET 1000 MCG PO (08:51)
[2024-08-08] MEDS: EMPAGLIFLOZIN 10 MG TABLET PO (08:51)
[2024-08-08] MEDS: ENOXAPARIN 40 MG/0.4 ML SYRINGE SUB-Q ×2 (08:51→20:45)
[2024-08-08] MEDS: HYDROXYCHLOROQUINE SULFATE 200 MG TABLET PO ×2 (08:51→20:45)
--- NOTE | 2024-08-08 11:58 | P.PNIM_ITS ---
Progress Note: A&P Assessment and Plan (1) CHF (congestive heart failure): Qualifiers: Heart failure chronicity: unspecified Heart failure type: diastolic Qualified Code(s): I50.30 - Unspecified diastolic (congestive) heart failure Code(s): I50.9 - Heart failure, unspecified Status: Acute Assessment and Plan: * Previous ECHO from February shows EF of 55-60% and some diastolic dysfunction. * Currently with evidence of Volume overload per CXR and Physical Exam. * Continue Lasix 40 mg IVP BID. * Consider Cardiology consult. * Monitor labs and VS and trend. * Daily weights * Accurate I&O (2) Acute hypoxic respiratory failure: Code(s): J96.01 - Acute respiratory failure with hypoxia Status: Acute Assessment and Plan: * Continue Supplemental oxygen. * Home oxygen determination ordered. Pt will need it for her BiPap that polysomnography recommends bleed in of 4L. * Monitor labs and VS. * Continue Diuresis. (3) Transaminitis: Code(s): R74.01 - Elevation of levels of liver transaminase levels Status: Acute Assessment and Plan: * Noted AST/ALT of 151/189 respectively. In April they were normal. Unclear etiology of increase. * Bilirubin also noted to be elevated at 1.4. * Pt asymptomatic * Suspect Portal HTN. * US RUQ ordered. (4) Lymphedema of both lower extremities: Code(s): I89.0 - Lymphedema, not elsewhere classified Status: Acute Assessment and Plan: * Wrap BLE with Reagan wraps (5) Chronic venous insufficiency of lower extremity: Code(s): I87.2 - Venous insufficiency (chronic) (peripheral) Status: Acute Assessment and Plan: * BLE reagan wraps (6) STAS (obstructive sleep apnea): Code(s): G47.33 - Obstructive sleep apnea (adult) (pediatric) Status: Acute Assessment and Plan: * Continue BiPap that was initiated. Settings of 18/8 w/3L oxygen bled in. * Order placed to set up home BiPap based on Polysomnography recs. (7) Essential (primary) hypertension: Onset Date: Unknown Code(s): I10 - Essential (primary) hypertension Status: Acute Assessment and Plan: * Continue home meds. * Trend VS. * Monitor (8) SLE (systemic lupus erythematosus): Onset Date: Unknown Qualifiers: Systemic lupus erythematosus type: unspecified Systemic lupus erythematosus organ involvement: unspecified Qualified Code(s): M32.9 - Systemic lupus erythematosus, unspecified Code(s): M32.9 - Systemic lupus erythematosus, unspecified Status: Chronic Assessment and Plan: * Continue Hydroxychloroquine (9) Morbid obesity: Onset Date: Unknown Code(s): E66.01 - Morbid (severe) obesity due to excess calories Status: Chronic Assessment and Plan: * Recommend lifestyle changes to decrease Cardiovascular risk Time Spent With Patient Time with patient: 25 - 35 minutes Subjective Date/time seen: 08/08/24 11:58 Interval history: This very pleasant 49 year old female pt was examined at the bedside today in interval assessment. Her RN called me this AM regarding her lower BP at 90s/50s, and her AM dose of Lasix had to be held. Pt without any acute complaints today other than some BELLE. She had her BiPap on last evening and she stated she slept well with it. She will need home oxygen set up for discharge as she has 3L oxygen bled in through her BiPap at night. Order is placed for home oxygen eval and also for BiPap set up. Review of Systems Review of Systems: All systems reviewed & are unremarkable except as noted in HPI and below Exam Narrative: CONSTITUTIONAL: Obese, female pt lying supine at this time in no acute distress. She has no acute dyspnea present. HENMT: Atraumatic and normocephalic. MMM and patent oropharynx without any exudate, edema or erythema. EYES: PERRLA, EOMs intact, Conjunctiva are clear NECK: Supple, FROM RESPIRATORY: Diminished in bases bilaterally posterior and faint crackles present. CARDIOVASCULAR: RRR, S1 and S2 present. No S3, S4, m,r,g,h or displacement of PMI. GI: Soft, NT, BS+x4, no guarding, rebound : Deferred SKIN: Intact, warm, dry, without lesion NEURO: Grossly intact without any focal abnormalities EXTREMITIES: Full AROM of all four extremities without deficit. PSYCH: A&Ox4, normal affect. Const: General: comfortable and no acute distress Eyes: Pupils: Equal, round and reactive pupils present Neck: Neck: supple Resp: Effort & Inspection: normal respiratory effort Auscultation: no crackles Other: Slightly labored respirations Cardio: Rate: regular rate Rhythm: regular rhythm Heart sounds: no gallops, no murmurs and no rubs GI: GI Palp: Yes Soft to palpation and No Tenderness to palpation present (GI) Extrem: Other: Lymphedema with underlying pitting edema, improved. Resolved edema above the knees Objective Data Vital Signs Vital Signs: Vital Signs - 24 hr 08/07/24 14:14 08/07/24 14:32 08/07/24 15:27 Temperature 97.8 F Pulse Rate 78 86 68 Respiratory Rate 24 H 13 Blood Pressure 139/91 H 118/96 H Pulse Oximetry 99 97 Oxygen Delivery Nasal Cannula Oxygen Flow Rate 4 08/07/24 16:37 08/07/24 17:38 08/07/24 19:23 Temperature Pulse Rate 72 69 85 Respiratory Rate 20 18 20 Blood Pressure 139/90 143/81 H 127/71 Pulse Oximetry 95 100 97 Oxygen Delivery Oxygen Flow Rate 08/07/24 20:00 08/07/24 20:29 08/07/24 20:54 Temperature 98.1 F Pulse Rate 88 87 87 Respiratory Rate 29 H 15 20 Blood Pressure 124/70 135/65 Pulse Oximetry 95 95 100 Oxygen Delivery BiPAP Oxygen Flow Rate 08/07/24 22:25 08/08/24 00:00 08/08/24 01:56 Temperature Pulse Rate 88 85 Respiratory Rate 29 H 16 Blood Pressure Pulse Oximetry 95 Oxygen Delivery BiPAP BiPAP Oxygen Flow Rate 08/08/24 04:00 08/08/24 06:00 Temperature 98.4 F Pulse Rate 74 73 Respiratory Rate 18 Blood Pressure 107/57 L Pulse Oximetry 93 Oxygen Delivery Oxygen Flow Rate Intake/Output Intake/Output: Intake & Output 08/05/24 08/06/24 08/07/24 08/08/24 23:59 23:59 23:59 23:59 Intake Total 500 Output Total 1200 Balance -700 Meds/Results Medications: Active Medications Generic Name Dose Route Start Last Admin Trade Name Freq PRN Reason Stop Dose Admin Acetaminophen 650 mg 08/07/24 16:28 Acetaminophen 325 Mg Tablet PO Q4H PRN Mild Pain (1-3) or Fever Hydrocodone Bitart/Acetaminophen 1 tab 08/07/24 16:28 Hydrocodone/Acetaminophen (*Crx) 5-325 Mg Tablet PO Q4H PRN Pain Rated 4-6 Cyanocobalamin 1,000 mcg 08/08/24 09:00 08/08/24 08:51 Cyanocobalamin 1,000 Mcg Tablet PO 1,000 mcg DAILY DELROY Administration Empagliflozin 10 mg 08/08/24 09:00 08/08/24 08:51 Empagliflozin 10 Mg Tablet PO 10 mg DAILY DELROY Administration Enoxaparin Sodium 40 mg 08/07/24 21:00 08/07/24 21:12 Enoxaparin 40 Mg/0.4 Ml Syringe SUB-Q 40 mg Q12HR DELROY Administration Furosemide 40 mg 08/07/24 21:00 08/08/24 08:50 Furosemide Inj 40 Mg/4 Ml Vial IV PUSH Not Given Q12HR DELROY Hydroxychloroquine Sulfate 200 mg 08/08/24 09:00 08/08/24 08:51 Hydroxychloroquine Sulfate 200 Mg Tablet PO 200 mg Q12HR DELROY Administration Ondansetron HCl 4 mg 08/07/24 16:28 Ondansetron Inj 4 Mg/2 Ml Vial IV PUSH Q4H PRN Nausea Radiology Results: ITS Impressions Chest X-Ray 08/07/24 15:18 IMPRESSION: Mild interstitial edema versus artifact from crowding. Mild bibasilar plexus/scar. Chronic right hemidiaphragm elevation. Venous Doppler Study 08/07/24 17:15 IMPRESSION: Limited visualization of the lower extremity veins abdomen below the level of t he knees as detailed above. No DVT detected in the adequately visualized veins. Labs Labs: Laboratory Results - last 24 hr 08/07/24 08/07/24 08/07/24 14:39 14:39 14:39 WBC 9.4 RBC 5.73 H Hgb 12.6 Hct 44.2 MCV 77.1 L MCH 22.0 L MCHC 28.5 L RDW 20.8 H Plt Count 284 MPV 10.7 H Immature Gran % (Auto) 1.3 H Neut % (Auto) 75.0 H Lymph % (Auto) 10.5 L [place] % (Auto) 10.6 H Eos % (Auto) 1.9 Baso % (Auto) 0.7 Lymph # (Auto) 0.99 [place] # (Auto) 1.0 H Eos # (Auto) 0.2 Baso # (Auto) 0.1 Abs Immat Gran (auto) 0.12 H Absolute Neuts (auto) 7.1 H Absolute Nucleated RBC 0.200 H Nucleated RBC % 2.1 H Platelet Estimate Adequate % Immature Plt Fraction 5.0 Hypochromasia 1+ Schistocytes None seen PT 19.6 H INR 1.6 APTT 28.7 Puncture Site ABG pH ABG pCO2 ABG pO2 ABG PO2/FiO2 Ratio ABG HCO3 ABG O2 Saturation ABG O2 Content ABG Base Excess A-a Gradient Oxyhemoglobin Total Hemoglobin O2 Delivery Device O2 Liters/Min FiO2 Sodium Cancelled 135 L Potassium Cancelled 4.3 Chloride Cancelled Carbon Dioxide Anion Gap BUN Creatinine Estim Creat Clear Calc Estimated GFR Glucose Lactic Acid Calcium Magnesium Total Bilirubin AST ALT Alkaline Phosphatase Troponin I NT-Pro-B Natriuret Pep Total Protein Albumin TSH (Reflex) 08/07/24 08/07/24 08/07/24 14:39 14:39 14:39 WBC RBC Hgb Hct MCV MCH MCHC RDW Plt Count MPV Immature Gran % (Auto) Neut % (Auto) Lymph % (Auto) [place] % (Auto) Eos % (Auto) Baso % (Auto) Lymph # (Auto) [place] # (Auto) Eos # (Auto) Baso # (Auto) Abs Immat Gran (auto) Absolute Neuts (auto) Absolute Nucleated RBC Nucleated RBC % Platelet Estimate % Immature Plt Fraction Hypochromasia Schistocytes PT INR APTT Puncture Site ABG pH ABG pCO2 ABG pO2 ABG PO2/FiO2 Ratio ABG HCO3 ABG O2 Saturation ABG O2 Content ABG Base Excess A-a Gradient Oxyhemoglobin Total Hemoglobin O2 Delivery Device O2 Liters/Min FiO2 Sodium Potassium Chloride 100 Carbon Dioxide Cancelled 31 H Anion Gap Cancelled 4 BUN Cancelled Creatinine Estim Creat Clear Calc Estimated GFR Glucose Lactic Acid Calcium Magnesium Total Bilirubin AST ALT Alkaline Phosphatase Troponin I NT-Pro-B Natriuret Pep Total Protein Albumin TSH (Reflex) 08/07/24 08/07/24 08/07/24 14:39 14:39 14:39 WBC RBC Hgb Hct MCV MCH MCHC RDW Plt Count MPV Immature Gran % (Auto) Neut % (Auto) Lymph % (Auto) [place] % (Auto) Eos % (Auto) Baso % (Auto) Lymph # (Auto) [place] # (Auto) Eos # (Auto) Baso # (Auto) Abs Immat Gran (auto) Absolute Neuts (auto) Absolute Nucleated RBC Nucleated RBC % Platelet Estimate % Immature Plt Fraction Hypochromasia Schistocytes PT INR APTT Puncture Site ABG pH ABG pCO2 ABG pO2 ABG PO2/FiO2 Ratio ABG HCO3 ABG O2 Saturation ABG O2 Content ABG Base Excess A-a Gradient Oxyhemoglobin Total Hemoglobin O2 Delivery Device O2 Liters/Min FiO2 Sodium Potassium Chloride Carbon Dioxide Anion Gap BUN 67 H D Creatinine Cancelled 1.40 H Estim Creat Clear Calc Cancelled 59 Estimated GFR Cancelled Glucose Lactic Acid Calcium Magnesium Total Bilirubin AST ALT Alkaline Phosphatase Troponin I NT-Pro-B Natriuret Pep Total Protein Albumin TSH (Reflex) 08/07/24 08/07/24 08/07/24 14:39 14:39 14:39 WBC RBC Hgb Hct MCV MCH MCHC RDW Plt Count MPV Immature Gran % (Auto) Neut % (Auto) Lymph % (Auto) [place] % (Auto) Eos % (Auto) Baso % (Auto) Lymph # (Auto) [place] # (Auto) Eos # (Auto) Baso # (Auto) Abs Immat Gran (auto) Absolute Neuts (auto) Absolute Nucleated RBC Nucleated RBC % Platelet Estimate % Immature Plt Fraction Hypochromasia Schistocytes PT INR APTT Puncture Site ABG pH ABG pCO2 ABG pO2 ABG PO2/FiO2 Ratio ABG HCO3 ABG O2 Saturation ABG O2 Content ABG Base Excess A-a Gradient Oxyhemoglobin Total Hemoglobin O2 Delivery Device O2 Liters/Min FiO2 Sodium Potassium Chloride Carbon Dioxide Anion Gap BUN Creatinine Estim Creat Clear Calc Estimated GFR 40 L Glucose Cancelled 97 Lactic Acid 1.7 Calcium Cancelled 8.2 L Magnesium Total Bilirubin Cancelled AST ALT Alkaline Phosphatase Troponin I NT-Pro-B Natriuret Pep Total Protein Albumin TSH (Reflex) 08/07/24 08/07/24 08/07/24 14:39 14:39 14:39 WBC RBC Hgb Hct MCV MCH MCHC RDW Plt Count MPV Immature Gran % (Auto) Neut % (Auto) Lymph % (Auto) [place] % (Auto) Eos % (Auto) Baso % (Auto) Lymph # (Auto) [place] # (Auto) Eos # (Auto) Baso # (Auto) Abs Immat Gran (auto) Absolute Neuts (auto) Absolute Nucleated RBC Nucleated RBC % Platelet Estimate % Immature Plt Fraction Hypochromasia Schistocytes PT INR APTT Puncture Site ABG pH ABG pCO2 ABG pO2 ABG PO2/FiO2 Ratio ABG HCO3 ABG O2 Saturation ABG O2 Content ABG Base Excess A-a Gradient Oxyhemoglobin Total Hemoglobin O2 Delivery Device O2 Liters/Min FiO2 Sodium Potassium Chloride Carbon Dioxide Anion Gap BUN Creatinine Estim Creat Clear Calc Estimated GFR Glucose Lactic Acid Calcium Magnesium Total Bilirubin 1.7 H AST Cancelled 168 H ALT Cancelled 194 H Alkaline Phosphatase Cancelled Troponin I NT-Pro-B Natriuret Pep Total Protein Albumin TSH (Reflex) 08/07/24 08/07/24 08/07/24 14:39 14:39 14:39 WBC RBC Hgb Hct MCV MCH MCHC RDW Plt Count MPV Immature Gran % (Auto) Neut % (Auto) Lymph % (Auto) [place] % (Auto) Eos % (Auto) Baso % (Auto) Lymph # (Auto) [place] # (Auto) Eos # (Auto) Baso # (Auto) Abs Immat Gran (auto) Absolute Neuts (auto) Absolute Nucleated RBC Nucleated RBC % Platelet Estimate % Immature Plt Fraction Hypochromasia Schistocytes PT INR APTT Puncture Site ABG pH ABG pCO2 ABG pO2 ABG PO2/FiO2 Ratio ABG HCO3 ABG O2 Saturation ABG O2 Content ABG Base Excess A-a Gradient Oxyhemoglobin Total Hemoglobin O2 Delivery Device O2 Liters/Min FiO2 Sodium Potassium Chloride Carbon Dioxide Anion Gap BUN Creatinine Estim Creat Clear Calc Estimated GFR Glucose Lactic Acid Calcium Magnesium Total Bilirubin AST ALT Alkaline Phosphatase 135 H Troponin I 0.022 NT-Pro-B Natriuret Pep Cancelled 2720 H Total Protein Cancelled 7.0 Albumin Cancelled TSH (Reflex) 08/07/24 08/07/24 08/07/24 14:39 14:55 20:24 WBC RBC Hgb Hct MCV MCH MCHC RDW Plt Count MPV Immature Gran % (Auto) Neut % (Auto) Lymph % (Auto) [place] % (Auto) Eos % (Auto) Baso % (Auto) Lymph # (Auto) [place] # (Auto) Eos # (Auto) Baso # (Auto) Abs Immat Gran (auto) Absolute Neuts (auto) Absolute Nucleated RBC Nucleated RBC % Platelet Estimate % Immature Plt Fraction Hypochromasia Schistocytes PT INR APTT Puncture Site Right radial ABG pH 7.375 ABG pCO2 50.7 H ABG pO2 84.7 ABG PO2/FiO2 Ratio 2.65 ABG HCO3 29.0 H ABG O2 Saturation 96.0 ABG O2 Content 17.7 ABG Base Excess 2.9 A-a Gradient 84.1 Oxyhemoglobin 93.5 Total Hemoglobin 13.4 O2 Delivery Device Nasal cannula O2 Liters/Min 3.0 FiO2 32 Sodium Potassium Chloride Carbon Dioxide Anion Gap BUN Creatinine Estim Creat Clear Calc Estimated GFR Glucose Lactic Acid Calcium Magnesium Total Bilirubin AST ALT Alkaline Phosphatase Troponin I 0.029 D NT-Pro-B Natriuret Pep Total Protein Albumin 3.4 L TSH (Reflex) 1.480 08/08/24 05:25 WBC 7.1 RBC 5.20 Hgb 11.6 L Hct 41.7 MCV 80.2 MCH 22.3 L MCHC 27.8 L RDW 20.2 H Plt Count 242 MPV 11.1 H Immature Gran % (Auto) Neut % (Auto) Lymph % (Auto) [place] % (Auto) Eos % (Auto) Baso % (Auto) Lymph # (Auto) [place] # (Auto) Eos # (Auto) Baso # (Auto) Abs Immat Gran (auto) Absolute Neuts (auto) Absolute Nucleated RBC Nucleated RBC % Platelet Estimate % Immature Plt Fraction 5.7 Hypochromasia Schistocytes PT INR APTT Puncture Site ABG pH ABG pCO2 ABG pO2 ABG PO2/FiO2 Ratio ABG HCO3 ABG O2 Saturation ABG O2 Content ABG Base Excess A-a Gradient Oxyhemoglobin Total Hemoglobin O2 Delivery Device O2 Liters/Min FiO2 Sodium 139 Potassium 4.1 Chloride 101 Carbon Dioxide 36 H Anion Gap 2 L BUN 60 H Creatinine 1.20 H Estim Creat Clear Calc 64 Estimated GFR 48 L Glucose 90 Lactic Acid Calcium 7.9 L Magnesium 2.1 Total Bilirubin 1.4 H AST 151 H ALT 189 H Alkaline Phosphatase 111 Troponin I NT-Pro-B Natriuret Pep Total Protein 7.0 Albumin 2.9 L TSH (Reflex) Quality VTE Prophylaxis VTE prophylaxis: pharmacologic ordered
[2024-08-08] MEDS: FUROSEMIDE INJ 40 MG/4 ML VIAL IV PUSH ×2 (14:04→20:45)
[2024-08-09] VITALS (10 sets, daily range): BP systolic 104–121; BP diastolic 53–73; PULSE 72–86; RESP 16–23; TEMP 36.1–36.8; O2SAT 93–100
--- NOTE | 2024-08-09 | ECHO_ITS ---
Patient Info Name: Mara Us Age: 49 years : 1975 Gender: Female Ht: 61 in Wt: 305 lbs BSA: 2.54 m2 HR: 77 bpm BP: 104 / 53 mmHg Heart Rhythm: Sinus Rhythm Technical Quality: Good Exam Date: 08/09/2024 1:48 PM Exam Location: Echo Lab Exam Room: [facility] Patient Status: Inpatient Admit Date: 08/09/2024 Staff Ordering Physician: Madalyn Bernardo Transportation Solutions Manager: Paty Ruby RDCS Attending Provider: Madalyn Bernardo Referring Physician: Az OAKES; Exam Type: CA echo doppler color flow Study Info Complete two-dimensional, color flow and Doppler transthoracic echocardiogram is performed. Summary 1. Complete two-dimensional, color flow and Doppler transthoracic echocardiogram is performed. 2. Left ventricular chamber dimension is normal. 3. Left ventricular wall thickness is normal. 4. Left ventricular systolic function is mildly reduced with a visually estimated ejection fraction of 50-55%. 5. Left ventricular septal wall motion shows abnormal septal motion due to RV pressure and volume load. 6. Right ventricular chamber dimension is enlarged. 7. Right ventricular systolic function is reduced. 8. Right atrial chamber dimension is enlarged. 9. Possible Patent foramen ovale (PFO) on color flow imaging. 10. There is moderate tricuspid valve regurgitation. 11. Mild pulmonary hypertension, estimated pulmonary arterial systolic pressure is 52 mmHg. 12. Dilated inferior vena cava with <50% collapse upon inspiration consistent with elevated right atrial pressure, 15 mmHg. Recommendations * Consider bubble study to further evaluate PFO. Left Ventricle Left ventricular chamber dimension is normal. Left ventricular wall thickness is normal. Left ventricular systolic function is mildly reduced with a visually estimated ejection fraction of 50-55%. Left ventricular septal wall motion shows abnormal septal motion due to RV pressure and volume load. Right Ventricle Right ventricular chamber dimension is enlarged. Right ventricular systolic function is reduced. Left Atria Left atrial chamber dimension is normal. Right Atria Right atrial chamber dimension is enlarged. Atrial Septum Possible Patent foramen ovale (PFO) on color flow imaging. Aortic Valve The aortic valve is trileaflet. There is no aortic valve regurgitation. There is no aortic valve stenosis. Mitral Valve There is no mitral valve regurgitation. There is no mitral valve stenosis. Tricuspid Valve There is moderate tricuspid valve regurgitation. Mild pulmonary hypertension, estimated pulmonary arterial systolic pressure is 52 mmHg. Inferior Vena Cava Dilated inferior vena cava with <50% collapse upon inspiration consistent with elevated right atrial pressure, 15 mmHg. Aorta The aortic root size at the sinus of Valsalva is normal. The prox ascending aorta size is normal. Left Ventricular Outflow Tract Name Value Normal LVOT 2D LVOT Diameter 2.3 cm LVOT Doppler LVOT Peak Gradient 8 mmHg LVOT Mean Gradient 3 mmHg LVOT VTI 23 cm LVOT VTI/AV VTI Ratio 0.7 LVOT Stroke Volume 95 ml LVOT CO 20.5 l/min LVOT CI 8.1 l/min/m2 Pulmonic Valve Name Value Normal PV Doppler PV Peak Gradient 3 mmHg Mitral Valve Name Value Normal MV Doppler MV Decel [place] 489 cm/s2 MV PHT 58 ms MV Area (PHT) 3.8 cm2 4.0-5.0 MV Diastolic Function MV E Peak Velocity 98 cm/s MV A Peak Velocity 84 cm/s MV E/A 1.2 MV Decel Time 201 ms MV Annular TDI MV E/e' (Septal) 9.6 <=8.0 MV E/e' (Lateral) 8.1 <=8.0 MV E/e' (Average) 8.8 Tricuspid Valve Name Value Normal TV Regurgitation Doppler TR Peak Velocity 303 cm/s TR Peak Gradient 37 mmHg Estimated PAP/RSVP RA Pressure 15 mmHg <=5 PA Systolic Pressure 52 mmHg <36 RV Systolic Pressure 52 mmHg <36 Aorta Name Value Normal Ascending Aorta Ao Root Diameter (MM) 2.9 cm Ao Root Diam Index (MM) 1.2 cm/m2 Ao Root Diameter (2D) 2.7 cm Ao Root Diam Index (2D) 1.1 cm/m2 Aortic Valve Name Value Normal AV 2D/MM AV Cusp Sep (MM) 1.8 cm AV Doppler AV Peak Velocity 188 cm/s AV Peak Gradient 14 mmHg AV Mean Gradient 7 mmHg AV VTI 35 cm AV Area (Cont Eq VTI) 2.7 cm2 >=3.0 AV Area (Cont Eq Evgeny) 3.0 cm2 AV Regurgitation 2D LVOT Area 4.0 cm2 Ventricles Name Value Normal LV Dimensions 2D/MM IVS Diastolic Thickness (2D) 0.8 cm 0.6-1.0 LVID Diastole (2D) 5.5 cm 3.8-5.2 LVIW Diastolic Thickness (2D) 1.1 cm 0.6-0.9 LVID Systole (2D) 4.2 cm 2.2-3.5 LVOT Diameter 2.3 cm LV Mass (2D Cubed) 212.23 g 67.00-162.00 LV Mass Index (2D Cubed) 84 g/m2 43-95 Relative Wall Thickness (2D) 0.41 LV Fractional Shortening/Ejection Fraction 2D/MM LV Fractional Shortening (2D) 23 % 27-45 LV EF (2D Teicholz) 46 % 54-74 LV Diastolic Volume (4C MOD) 111 ml LV EF (4C MOD) 59 % LV Diastolic Length (4C) 8.7 cm LV Systolic Length (4C) 7.1 cm LV Stroke Volume (4C MOD) 65 ml Atria Name Value Normal LA Dimensions LA Dimension (2D) 4.0 cm 2.7-3.8 LA Dimen Index (2D) 1.6 cm/m2 LA Dimension (MM) 4.5 cm 2.7-3.8 LA Volume (4C A-L) 47 ml LA Volume (BP A-L) 53 ml RA Dimensions RA Area (4C) 15.7 cm2 <=18.0 Report Signatures
[2024-08-09 07:06] LABS: Basophils Percent Auto 0.5 % (0.2-1.2); Eosinophils Absolute Auto 0.2 K/mm3 (0-0.3); Hematocrit 41.7 % (37.0-47.0); Hemoglobin 11.6 g/dL (12.0-15.0); Immature Granulocyte Absolute 0.04 K/mm3 (0.00-0.031); Immature Granulocyte Percent A 0.7 % (0-0.5); Immature Platelet Fraction Pct 3.9 % (0.9-11.2); Lymphocytes Percent Auto 12.8 % (18.3-44.2); Mean Corpuscular HGB Conc 27.8 g/dl (32-36); Mean Corpuscular Hemoglobin 22.3 pg (26-34); Mean Corpuscular Volume 80.2 fl (80-100); Monocytes Absolute Auto 0.5 K/mm3 (0.1-0.6); Monocytes Percent Auto 9.2 % (2.6-8.5); Neutrophils Percent Auto 72.8 % (45.5-73.1); Nucleated Red Blood Cells Perc 0.5 % (0.0-0.2); Platelet Count Result 195 k/mm3 (150-375); Red Cell Distribution Width 19.9 % (11.5-14.5); White Blood Count 5.5 K/mm3 (4.5-10.0)
[2024-08-09 07:21] LABS: Alanine Aminotransferase 179 U/L (6-35); Albumin Level 2.9 g/dL (3.5-5.1); Alkaline Phosphatase 106 U/L (38-126); Aspartate Amino Transferase 115 U/L (14-36); Bilirubin,Total 1.2 mg/dL (0.2-1.3); Blood Urea Nitrogen 42 mg/dL (7-17); Carbon Dioxide > 40 mmol/L (22-30); Chloride 100 mmol/L (98-107); Estimated CRCL calculation 87 ml/min; Estimated Glomerular Filt Rate > 60; Glucose 92 mg/dL (65-110); Potassium 3.8 mmol/L (3.4-5.0); Sodium 137 mmol/L (137-145)
[2024-08-09 07:42] LABS: Hypochromasia 1+; Platelet Estimate Adequate (Adequate); Schistocytes None Seen; Target Cells 1+
--- NOTE | 2024-08-09 08:28 | P.PNIM_ITS ---
Progress Note: A&P Assessment and Plan (1) CHF (congestive heart failure): Qualifiers: Heart failure chronicity: unspecified Heart failure type: diastolic Qualified Code(s): I50.30 - Unspecified diastolic (congestive) heart failure Code(s): I50.9 - Heart failure, unspecified Status: Acute Assessment and Plan: * Previous ECHO from February shows EF of 55-60% and some diastolic dysfunction. * Currently with evidence of Volume overload per CXR and Physical Exam. * Continue Lasix 40 mg IVP BID. * Consider Cardiology consult. * Monitor labs and VS and trend. * Daily weights * Accurate I&O 08/09/24: * Repeat ECHO ordered for today. * Consult Cardiology for maximization of Heart Failure management and recommendations for diuresis in the setting of soft BP's. * Last 24 hours intake = 1040, Output = 3700 * Weight increase from 130.9 kg on 08/07/24 to 137.5 kg today. (2) Acute hypoxic respiratory failure: Code(s): J96.01 - Acute respiratory failure with hypoxia Status: Acute Assessment and Plan: * Continue Supplemental oxygen. * Home oxygen determination ordered. Pt will need it for her BiPap that polysomnography recommends bleed in of 4L. * Monitor labs and VS. * Continue Diuresis. 08/09/24: * Continue BiPap with settings of 18/8;R23;3L * Continue to arrange home oxygen and BiPap set up for home. * Monitor labs and VS. (3) Transaminitis: Code(s): R74.01 - Elevation of levels of liver transaminase levels Status: Acute Assessment and Plan: * Noted AST/ALT of 151/189 respectively. In April they were normal. Unclear etiology of increase. * Bilirubin also noted to be elevated at 1.4. * Pt asymptomatic * Suspect Portal HTN. * US RUQ ordered. 08/09/24: * US RUQ normal. * Bilirubin today normal at 1.2. * AST and ALT with marginal decline today to 115/179 respectively. As they are trending downward will defer any further advanced imaging given pt is asymptomatic. * US negative of RUQ yesterday. * Continue to trend with Daily labs. (4) Lymphedema of both lower extremities: Code(s): I89.0 - Lymphedema, not elsewhere classified Status: Acute Assessment and Plan: * Wrap BLE with Reagan wraps 08/09/24: * REAGAN wraps are in place bilaterally and edema is slightly improved as compared to yesterday. * Continue REAGAN wraps and elevation of extremities when in bed. (5) Chronic venous insufficiency of lower extremity: Code(s): I87.2 - Venous insufficiency (chronic) (peripheral) Status: Acute Assessment and Plan: * BLE reagan wraps 08/09/24: * See #4 (6) STAS (obstructive sleep apnea): Code(s): G47.33 - Obstructive sleep apnea (adult) (pediatric) Status: Acute Assessment and Plan: * Continue BiPap that was initiated. Settings of 18/8 w/3L oxygen bled in. * Order placed to set up home BiPap based on Polysomnography recs. 08/09/24: * Pt again tolerated BiPap well last evening. She is still awaiting home set up. (7) Essential (primary) hypertension: Onset Date: Unknown Code(s): I10 - Essential (primary) hypertension Status: Acute Assessment and Plan: * Continue home meds. * Trend VS. * Monitor 08/09/24: * Pt's AM BP's have been soft causing the holding of Lasix. Cardiology is consulted to assist with maximization. * Continue to monitor and trend. (8) SLE (systemic lupus erythematosus): Onset Date: Unknown Qualifiers: Systemic lupus erythematosus type: unspecified Systemic lupus erythematosus organ involvement: unspecified Qualified Code(s): M32.9 - Systemic lupus erythematosus, unspecified Code(s): M32.9 - Systemic lupus erythematosus, unspecified Status: Chronic Assessment and Plan: * Continue Hydroxychloroquine (9) Morbid obesity: Onset Date: Unknown Code(s): E66.01 - Morbid (severe) obesity due to excess calories Status: Chronic Assessment and Plan: * Recommend lifestyle changes to decrease Cardiovascular risk Time Spent With Patient Time with patient: 25 - 35 minutes Subjective Date/time seen: 08/09/24 08:28 Interval history: This 49 year old female pt was examined at the bedside today in interval assessment. Pt reports she is feeling better overall. She has been on BiPap now for two nights in a row w/3L oxygen bled in, settings of 18/8 w/resp 23 and has tolerated well. We are still working on the set up for BiPap and Home oxygen for home. She has her legs wrapped to help with her edema and pt reports she feels as though the swelling is improving. Her I&O for the past 24 hours is promising with Intake of 1040 and output of 3700, however, she has a weight gain from 08/07/24 at 130.9 kg vs 137.5 kg today on 08/09/24. Her most recent ECHO from 02/2024 was reassuring with normal EF, however, the pt's current BP has been very soft, sometimes limiting the administration of diuretics. As she does not have a current [employer], a Cardiology consult has been placed to make recommendations regarding maximization of diuresis given soft BP's and for follow up. Repeat ECHO is also ordered. Pt without any acute complaints today of CP or dyspnea except with exertion. Review of Systems Review of Systems: All systems reviewed & are unremarkable except as noted in HPI and below Exam Narrative: CONSTITUTIONAL: Obese, female pt lying sitting on side of bed at this time in no acute distress. She has no acute dyspnea present. HENMT: Atraumatic and normocephalic. MMM and patent oropharynx without any exudate, edema or erythema. EYES: PERRLA, EOMs intact, Conjunctiva are clear NECK: Supple, FROM RESPIRATORY: Diminished in bases bilaterally posterior and faint crackles present. CARDIOVASCULAR: RRR, S1 and S2 present. No S3, S4, m,r,g,h or displacement of PMI. GI: Soft, NT, BS+x4, no guarding, rebound : Deferred SKIN: Intact, warm, dry, without lesion NEURO: Grossly intact without any focal abnormalities EXTREMITIES: Full AROM of all four extremities without deficit. PSYCH: A&Ox4, normal affect. Objective Data Vital Signs Vital Signs: Vital Signs - 24 hr 08/08/24 08:50 08/08/24 08:50 08/08/24 12:00 Temperature Pulse Rate 77 84 Respiratory Rate Blood Pressure Pulse Oximetry 97 Oxygen Delivery Nasal Cannula Oxygen Flow Rate 3 08/08/24 14:00 08/08/24 17:26 08/08/24 20:00 Temperature 98.4 F Pulse Rate 100 88 78 Respiratory Rate 16 Blood Pressure 130/71 Pulse Oximetry 95 Oxygen Delivery Oxygen Flow Rate 08/08/24 20:19 08/08/24 20:30 08/08/24 22:45 Temperature 97.6 F Pulse Rate 84 Respiratory Rate 16 25 H Blood Pressure 114/56 L Pulse Oximetry 95 95 Oxygen Delivery Nasal Cannula BiPAP Oxygen Flow Rate 3 08/09/24 00:00 08/09/24 03:06 08/09/24 04:00 Temperature Pulse Rate 79 86 Respiratory Rate 23 H Blood Pressure Pulse Oximetry Oxygen Delivery BiPAP Oxygen Flow Rate 08/09/24 04:18 Temperature 97.7 F Pulse Rate 77 Respiratory Rate 16 Blood Pressure 104/53 L Pulse Oximetry 93 Oxygen Delivery Oxygen Flow Rate Intake/Output Intake/Output: Intake & Output 08/06/24 08/07/24 08/08/24 08/09/24 23:59 23:59 23:59 23:59 Intake Total 990 550 Output Total 2300 1400 Balance -1310 -850 Meds/Results Medications: Active Medications Generic Name Dose Route Start Last Admin Trade Name Freq PRN Reason Stop Dose Admin Acetaminophen 650 mg 08/07/24 16:28 Acetaminophen 325 Mg Tablet PO Q4H PRN Mild Pain (1-3) or Fever Hydrocodone Bitart/Acetaminophen 1 tab 08/07/24 16:28 Hydrocodone/Acetaminophen (*Crx) 5-325 Mg Tablet PO Q4H PRN Pain Rated 4-6 Cyanocobalamin 1,000 mcg 08/08/24 09:00 08/08/24 08:51 Cyanocobalamin 1,000 Mcg Tablet PO 1,000 mcg DAILY DELROY Administration Empagliflozin 10 mg 08/08/24 09:00 08/08/24 08:51 Empagliflozin 10 Mg Tablet PO 10 mg DAILY DELROY Administration Enoxaparin Sodium 40 mg 08/07/24 21:00 08/08/24 20:45 Enoxaparin 40 Mg/0.4 Ml Syringe SUB-Q 40 mg Q12HR DELROY Administration Furosemide 40 mg 08/07/24 21:00 08/08/24 20:45 Furosemide Inj 40 Mg/4 Ml Vial IV PUSH 40 mg Q12HR DELROY Administration Hydroxychloroquine Sulfate 200 mg 08/08/24 09:00 08/08/24 20:45 Hydroxychloroquine Sulfate 200 Mg Tablet PO 200 mg Q12HR DELROY Administration Ondansetron HCl 4 mg 08/07/24 16:28 Ondansetron Inj 4 Mg/2 Ml Vial IV PUSH Q4H PRN Nausea Perflutren Lipid Microsphere 0 ml 08/09/24 08:16 Perflutren Lipid Microspheres 1.5 Ml Vial Diluted To 10 Ml Total Volume IV PUSH 08/12/24 08:16 ONCE PRN adequate visualization Protocol Radiology Results: ITS Impressions Chest X-Ray 08/07/24 15:18 IMPRESSION: Mild interstitial edema versus artifact from crowding. Mild bibasilar plexus/scar. Chronic right hemidiaphragm elevation. Venous Doppler Study 08/07/24 17:15 IMPRESSION: Limited visualization of the lower extremity veins abdomen below the level of the knees as detailed above. No DVT detected in the adequately visualized veins. Abdomen Ultrasound 08/08/24 15:34 IMPRESSION: normal limited abdominal ultrasound. Labs Labs: Laboratory Results - last 24 hr 08/09/24 06:52 WBC 5.5 RBC 5.20 Hgb 11.6 L Hct 41.7 MCV 80.2 MCH 22.3 L MCHC 27.8 L RDW 19.9 H Plt Count 195 MPV 11.0 H Immature Gran % (Auto) 0.7 H Neut % (Auto) 72.8 Lymph % (Auto) 12.8 L Emmons % (Auto) 9.2 H Eos % (Auto) 4.0 Baso % (Auto) 0.5 Lymph # (Auto) 0.70 L Emmons # (Auto) 0.5 Eos # (Auto) 0.2 Baso # (Auto) 0.0 Abs Immat Gran (auto) 0.04 H Absolute Neuts (auto) 4.0 Absolute Nucleated RBC 0.030 H Nucleated RBC % 0.5 H Platelet Estimate Adequate % Immature Plt Fraction 3.9 Hypochromasia 1+ Target Cells 1+ Schistocytes None seen Sodium 137 Potassium 3.8 Chloride 100 Carbon Dioxide > 40 H Anion Gap BUN 42 H D Creatinine 0.90 Estim Creat Clear Calc 87 Estimated GFR > 60 Glucose 92 Calcium 8.0 L Total Bilirubin 1.2 AST 115 H ALT 179 H Alkaline Phosphatase 106 Total Protein 6.0 L Albumin 2.9 L Quality VTE Prophylaxis VTE prophylaxis: pharmacologic ordered
[2024-08-09] MEDS: ENOXAPARIN 40 MG/0.4 ML SYRINGE SUB-Q ×2 (08:32→20:53)
[2024-08-09] MEDS: EMPAGLIFLOZIN 10 MG TABLET PO (08:33)
[2024-08-09] MEDS: FUROSEMIDE INJ 40 MG/4 ML VIAL IV PUSH ×2 (08:33→20:52)
[2024-08-09] MEDS: CYANOCOBALAMIN 1,000 MCG TABLET 1000 MCG PO (08:33)
[2024-08-09] MEDS: HYDROXYCHLOROQUINE SULFATE 200 MG TABLET PO ×2 (08:33→20:52)
--- NOTE | 2024-08-09 12:19 | PM.CNCAR ---
Assessment and Plan Assessment and plan (1) CHF (congestive heart failure): Qualifiers: Heart failure chronicity: unspecified Heart failure type: diastolic Qualified Code(s): I50.30 - Unspecified diastolic (congestive) heart failure Code(s): I50.9 - Heart failure, unspecified Status: Acute Plan Acute on chronic diastolic heart failure Lymphedema Morbid obesity Obstructive sleep apnea Hypertension Systemic lupus erythematosus - Hold aldact - Compression stockings - Continue IV lasix 40 mg IV BID - Strict I/Os to be monitored History of Present Illness History of Present Illness Consult date/time: 08/09/24 12:19 Reason For Visit: heart failure exacerbation, hypoxia Narrative: female with a past medical history of morbid obesity BMI greater than 60, chronic hypercarbic respiratory failure (obesity hypoventilation likely), severe restrictive ventilatory defect chronic venous stasis and lymphedema, essential hypertension, obstructive sleep apnea, lupus, diastolic dysfunction, moderate tricuspid regurgitation and elevated right atrial pressures who was admitted with acute on chronic diastolic heart failure. Cardiology consulted to help with management of diuresis She feels a little better -1.3 L in the last 24 hours Creatinine improved to 0.9 Review of Systems Review of Systems: 12 systems were reviewed with pertinent positives and negatives per HPI. Except as documented in the HPI, all other systems were reviewed and are negative. All systems reviewed & are unremarkable except as noted in HPI and below Constitutional: Constitutional: Reports no additional constitutional complaints ENT: Reports system reviewed and no additional complaints, except as documented Cardiovascular: Cardiovascular: Reports no additional cardiovascular complaints and Reports dyspnea Respiratory: Respiratory: Denies cough, Reports dyspnea and Denies wheezing Gastrointestinal: Gastrointestinal: Reports no additional gastrointestinal complaints Allergic/Immunologic: Allergic/Immunologic: Denies wheezing [facility] Past Medical History Medical History (Updated 08/08/24 @ 12:13 by Madalyn Bernardo, PARAGLIDING INSTRUCTOR-C) Morbid obesity with body mass index (BMI) greater than or equal to 50 BMI 60.6 08/07/2024 Restrictive lung disease secondary to obesity Noted to be severe on PFTs from 2014 Moderate tricuspid regurgitation Diastolic heart failure Chronic hypercapnic respiratory failure CHF (congestive heart failure) Lymphedema of both lower extremities Chronic venous insufficiency of lower extremity COVID-[address] (~2019) Essential (primary) hypertension (Unknown) SLE (systemic lupus erythematosus) (Unknown) STAS (obstructive sleep apnea) Polysomnogram 06/2024 demonstrated moderate obstructive sleep apnea with recommended BiPAP of 18/8 with 3 L of bleed in O2 Malignant melanoma of upper back (~05/2019) Surgical History Surgical History History of removal of Port-a-Cath 2020 [place] teeth removed (~1989) Hx of section (~2000) History of skin surgery melanoma - 06/22/2019 Family History Family History Father Hypertension Sibling Lupus Social History Social History (Updated 08/08/24 @ 07:16 by Leona Tyler DO) Social History: Patient lives at home with her parents. She works for [employer]. She has 1 daughter who was in her 20. She ambulates without assistance. She is a lifelong nonsmoker. She occasionally drinks alcohol once every couple months. She denies illicit substance use. Code status: Full code Surrogate decision maker: Daughter Smoking status: Never smoker Second hand tobacco smoke exposure: No Alcohol intake: current Alcohol use details: Just every once in awhile Substance use: never Substance use type: does not use Do You Feel Safe in your Home?: Yes Lack of Transportation: No Lack of Food: Never True Current Housing: I Have Housing Concerned About Future Housing: No Difficulty Paying Gas/Electric Bills: YES Difficulty Paying for Meds: No Currently Unemployed: No Education: Associate Degree Difficulty w/ Childcare or Family Care: No Living arrangements: with family Gender identity (if verbalized by the patient): Female Sexual Orientation (if Verbalized by the Patient): Straight or Heterosexual Spiritual care concerns: No Meds Home Medications and Allergies Home Medications ?Medication ?Instructions ?Recorded ?Confirmed ?Type hydroxychloroquine 200 mg tablet 200 mg PO BID 07/17/19 08/07/24 History cyanocobalamin (vitamin B-12) 1,000 mcg PO DAILY 03/18/21 08/07/24 History 1,000 mcg tablet (Vitamin B-12) empagliflozin 10 mg tablet 10 mg PO DAILY #30 tabs 03/27/24 08/07/24 Rx (Jardiance) albuterol sulfate 90 mcg/actuation 2 puff inhalation PRN PRN 05/10/24 08/07/24 Rx aerosol inhaler (Proventil HFA) Shortness Of Breath Or Wheezing #8.5 grams spironolactone 25 mg tablet 12.5 mg (1/2 x 25 mg) PO DAILY #45 06/26/24 08/07/24 Rx tabs furosemide 40 mg tablet 40 mg PO DAILY #90 tabs 07/31/24 08/07/24 Rx Allergies Allergy/AdvReac Type Severity Reaction Status Date / Time Penicillins AdvReac Mild Rash Verified 08/07/24 19:17 Sulfa (Sulfonamide AdvReac Mild Rash Verified 08/07/24 19:17 Antibiotics) Vital Signs Vital Signs - 24 hr 08/08/24 14:00 08/08/24 17:26 08/08/24 20:00 Temperature 36.9 C Pulse Rate 100 88 78 Respiratory Rate 16 Blood Pressure 130/71 Pulse Oximetry 95 Oxygen Delivery Oxygen Flow Rate 08/08/24 20:19 08/08/24 20:30 08/08/24 22:45 Temperature 36.4 C Pulse Rate 84 Respiratory Rate 16 25 H Blood Pressure 114/56 L Pulse Oximetry 95 95 Oxygen Delivery Nasal Cannula BiPAP Oxygen Flow Rate 3 08/09/24 00:00 08/09/24 03:06 08/09/24 04:00 Temperature Pulse Rate 79 86 Respiratory Rate 23 H Blood Pressure Pulse Oximetry Oxygen Delivery BiPAP Oxygen Flow Rate 08/09/24 04:18 08/09/24 08:00 Temperature 36.5 C Pulse Rate 77 72 Respiratory Rate 16 Blood Pressure 104/53 L Pulse Oximetry 93 Oxygen Delivery Oxygen Flow Rate Exam Narrative: CONSTITUTIONAL: Obese, female pt lying sitting on side of bed at this time in no acute distress. She has no acute dyspnea present. HENMT: Atraumatic and normocephalic. MMM and patent oropharynx without any exudate, edema or erythema. EYES: PERRLA, EOMs intact, Conjunctiva are clear NECK: Supple, FROM RESPIRATORY: Diminished in bases bilaterally posterior and faint crackles present. CARDIOVASCULAR: RRR, S1 and S2 present. No S3, S4, m,r,g,h or displacement of PMI. GI: Soft, NT, BS+x4, no guarding, rebound : Deferred SKIN: Intact, warm, dry, without lesion NEURO: Grossly intact without any focal abnormalities EXTREMITIES: Full AROM of all four extremities without deficit. PSYCH: A&Ox4, normal affect. Results Labs and Meds 08/09/24 06:52 08/09/24 06:52 Lab results: Cardiac Enzymes 08/09/24 Range/Units 06:52 AST 115 H (14-36) U/L CBC 08/09/24 Range/Units 06:52 WBC 5.5 (4.5-10.0) K/mm3 RBC 5.20 (4.2-5.4) M/mm3 Hgb 11.6 L (12.0-15.0) g/dL Hct 41.7 (37.0-47.0) % Plt Count 195 (150-375) k/mm3 Lymph # (Auto) 0.70 L (0.9-3.2) K/mm3 Cottle # (Auto) 0.5 (0.1-0.6) K/mm3 Eos # (Auto) 0.2 (0-0.3) K/mm3 Baso # (Auto) 0.0 (0.0-0.1) K/mm3 Comprehensive Metabolic Panel 08/09/24 Range/Units 06:52 Sodium 137 (137-145) mmol/L Potassium 3.8 (3.4-5.0) mmol/L Chloride 100 (98-107) mmol/L Carbon Dioxide > 40 H (22-30) mmol/L BUN 42 H D (7-17) mg/dL Creatinine 0.90 (0.7-1.0) mg/dL Glucose 92 (65-110) mg/dL Calcium 8.0 L (8.4-10.2) mg/dL AST 115 H (14-36) U/L ALT 179 H (6-35) U/L Alkaline Phosphatase 106 (38-126) U/L Total Protein 6.0 L (6.3-8.2) g/dL Albumin 2.9 L (3.5-5.1) g/dL Intake and Output 08/08/24 08/09/24 08/09/24 23:59 07:59 15:59 Intake Total 370 550 480 Output Total 1100 1400 Balance -730 -850 480 Intake: Oral 370 550 480 Output: Urine 1100 1400 Other: # Unmeasured Voids 2 Patient Weight 08/09/24 23:59 Weight 137.5 kg
[2024-08-10] VITALS (8 sets, daily range): BP systolic 110–115; BP diastolic 58–61; PULSE 72–88; RESP 16–24; TEMP 36.5–36.8; O2SAT 95–100
[2024-08-10 06:11] LABS: Basophils Percent Auto 0.7 % (0.2-1.2); Eosinophils Absolute Auto 0.2 K/mm3 (0-0.3); Eosinophils Percent Auto 4.5 % (0-4.4); Hematocrit 41.5 % (37.0-47.0); Hemoglobin 11.3 g/dL (12.0-15.0); Immature Granulocyte Absolute 0.02 K/mm3 (0.00-0.031); Immature Granulocyte Percent A 0.4 % (0-0.5); Immature Platelet Fraction Pct 5.1 % (0.9-11.2); Lymphocytes Absolute Auto 0.64 K/mm3 (0.9-3.2); Lymphocytes Percent Auto 11.9 % (18.3-44.2); Mean Corpuscular HGB Conc 27.2 g/dl (32-36); Mean Corpuscular Hemoglobin 22.4 pg (26-34); Mean Corpuscular Volume 82.3 fl (80-100); Mean Platelet Volume 11.6 fl (7.4-10.4); Monocytes Absolute Auto 0.5 K/mm3 (0.1-0.6); Monocytes Percent Auto 8.6 % (2.6-8.5); Neutrophils Percent Auto 73.9 % (45.5-73.1); Nucleated Red Blood Cells Perc 0.4 % (0.0-0.2); Platelet Count Result 181 k/mm3 (150-375); Red Blood Count 5.04 M/mm3 (4.2-5.4); Red Cell Distribution Width 19.9 % (11.5-14.5); White Blood Count 5.4 K/mm3 (4.5-10.0)
[2024-08-10 06:22] LABS: Alanine Aminotransferase 134 U/L (6-35); Albumin Level 2.9 g/dL (3.5-5.1); Alkaline Phosphatase 94 U/L (38-126); Anion Gap 1 mmol/L (4-12); Aspartate Amino Transferase 73 U/L (14-36); Bilirubin,Total 1.3 mg/dL (0.2-1.3); Blood Urea Nitrogen 34 mg/dL (7-17); Carbon Dioxide 37 mmol/L (22-30); Chloride 100 mmol/L (98-107); Estimated CRCL calculation 110 ml/min; Estimated Glomerular Filt Rate > 60; Glucose 80 mg/dL (65-110); Potassium 4.2 mmol/L (3.4-5.0); Sodium 138 mmol/L (137-145)
[2024-08-10 06:53] LABS: Hypochromasia 1+; Platelet Estimate Adequate (Adequate); Schistocytes None Seen
[2024-08-10] MEDS: CYANOCOBALAMIN 1,000 MCG TABLET 1000 MCG PO (08:02)
[2024-08-10] MEDS: EMPAGLIFLOZIN 10 MG TABLET PO (08:02)
[2024-08-10] MEDS: HYDROXYCHLOROQUINE SULFATE 200 MG TABLET PO ×2 (08:04→21:26)
[2024-08-10] MEDS: ENOXAPARIN 40 MG/0.4 ML SYRINGE SUB-Q ×2 (08:05→21:26)
[2024-08-10] MEDS: FUROSEMIDE INJ 40 MG/4 ML VIAL IV PUSH ×2 (08:05→14:08)
--- NOTE | 2024-08-10 10:55 | P.PNIM_ITS ---
Progress Note: A&P Assessment and Plan (1) CHF (congestive heart failure): Qualifiers: Heart failure chronicity: unspecified Heart failure type: diastolic Qualified Code(s): I50.30 - Unspecified diastolic (congestive) heart failure Code(s): I50.9 - Heart failure, unspecified Status: Acute Assessment and Plan: Previous ECHO from February shows EF of 55-60% and some diastolic dysfunction. Currently with evidence of Volume overload per CXR and Physical Exam. 08/10 TTE: 1. Complete two-dimensional, color flow and Doppler transthoracic echocardiogram is performed. 2. Left ventricular chamber dimension is normal. 3. Left ventricular wall thickness is normal. 4. Left ventricular systolic function is mildly reduced with a visually estimated ejection fraction of 50-55%. 5. Left ventricular septal wall motion shows abnormal septal motion due to RV pressure and volume load. 6. Right ventricular chamber dimension is enlarged. 7. Right ventricular systolic function is reduced. 8. Right atrial chamber dimension is enlarged. 9. Possible Patent foramen ovale (PFO) on color flow imaging. 10. There is moderate tricuspid valve regurgitation. 11. Mild pulmonary hypertension, estimated pulmonary arterial systolic pressure is 52 mmHg. 12. Dilated inferior vena cava with <50% collapse upon inspiration consistent with elevated right atrial pressure, 15 mmHg. PLAN * Continue Lasix. Addtional 40mg IV today, increased to 60mg IV BID. BMP, Mag, phos q12 * Cardiology consulted, appreciate recommendations * Monitor labs and VS and trend. * Weight trending up: 130.9 kg on 08/07/24, 137.5 kg 08/09, 138.1kg 08/10 * Fluid restriction 1000ml per day * I&O * Continuing jardiance (2) Acute hypoxic respiratory failure: Code(s): J96.01 - Acute respiratory failure with hypoxia Status: Acute Assessment and Plan: Not using oxygen at home Continue Supplemental oxygen. * Continue supplemental oxygen. * Home oxygen determination ordered. Pt will need it for her BiPap that polysomnography recommends bleed in of 4L. Continue BiPap with settings of 18/8;R23;3L. Will need for home * Monitor labs and VS. * Continue treatment of heart failure as noted (3) Transaminitis: Code(s): R74.01 - Elevation of levels of liver transaminase levels Status: Acute Assessment and Plan: LFT's elevated on admission. AST/ALT 151/189, Bilirubin 1.4 Suspect elevated 2/2 heart failure, LFT's improving. No nausea or abdominal pain * Improved today: 73/134/Bili 1.3 * 08/08 US RUQ normal (4) Lymphedema of both lower extremities: Code(s): I89.0 - Lymphedema, not elsewhere classified Status: Acute Assessment and Plan: Likely 2/2 fluid overload. Patient reports no edema earlier this month * NORMAN wraps are in place bilaterally and edema is slightly improved as compared to yesterday. * Continue NORMAN wraps and elevation of extremities when in bed * Diuresis as noted (5) STAS (obstructive sleep apnea): Code(s): G47.33 - Obstructive sleep apnea (adult) (pediatric) Status: Acute Assessment and Plan: Obesity contributing or causing STAS and contributes to other medical issues. Untreated STAS also exacerbating heart failure. Tolerating Bipap * Continue BiPap, started in the hospital. Settings of 18/8 w/3L oxygen bled in. * Order placed to set up home BiPap based on Polysomnography recs. * Pt again tolerated BiPap well last evening. She is still awaiting home set up. (6) Essential (primary) hypertension: Onset Date: Unknown Code(s): I10 - Essential (primary) hypertension Status: Acute Assessment and Plan: Blood pressure low normal, tolerating diuresis. Blood pressure ranging 104-130/53-73 * Diuresing as noted (7) SLE (systemic lupus erythematosus): Onset Date: Unknown Qualifiers: Systemic lupus erythematosus organ involvement: unspecified Systemic lupus erythematosus type: unspecified Qualified Code(s): M32.9 - Systemic lupus erythematosus, unspecified Code(s): M32.9 - Systemic lupus erythematosus, unspecified Status: Chronic Assessment and Plan: * Continue Hydroxychloroquine (8) Morbid obesity: Onset Date: Unknown Code(s): E66.01 - Morbid (severe) obesity due to excess calories Status: Chronic Assessment and Plan: * Recommend lifestyle changes to decrease Cardiovascular risk Time Spent With Patient Time: 58 minutes Subjective Date/time seen: 08/10/24 10:55 Interval history: Still on 3L O2 with anasarca (none at home). Additional dose of lasix today and increased to 60 IV BID. LFT's improving. Some urine output not documented but labs and vital signs stable Hospital Course: The patient is a 49 year old female pt was examined at the bedside today in interval assessment. Pt reports she is feeling better overall. She has been on BiPap now for two nights in a row w/3L oxygen bled in, settings of 18/8 w/resp 23 and has tolerated well, and planning bipap for home. May need oxygen at home. Diuresing with IV lasix, limited by blood pressures. Cardiology following. TTE 08/09 showed mildly reduced LVEF, 50-55%, left ventricular septal wall motion due to RV pressure and volume load. Possible PFO. Dilated right atrial pressure Review of Systems Review of Systems: 12 systems were reviewed with pertinent positives and negatives per HPI. Except as documented in the HPI, all other systems were reviewed and are negative. All systems reviewed & are unremarkable except as noted in HPI and below Exam Narrative: CONSTITUTIONAL: Obese, female pt lying sitting on side of bed at this time in no acute distress. She has no acute dyspnea present. HENMT: Atraumatic and normocephalic. MMM and patent oropharynx without any exudate, edema or erythema. EYES: PERRLA, EOMs intact, Conjunctiva are clear NECK: Supple, FROM RESPIRATORY: Diminished in bases bilaterally posterior and faint crackles present. CARDIOVASCULAR: RRR, S1 and S2 present. No S3, S4, m,r,g,h or displacement of PMI. GI: Soft, NT, BS+x4, no guarding, rebound : Deferred SKIN: Intact, warm, dry, without lesion NEURO: Grossly intact without any focal abnormalities EXTREMITIES: Full AROM of all four extremities without deficit. Generalized edema, bilateral hands and 3+ pitting edema lower extremities. PSYCH: A&Ox4, normal affect. Objective Data Vital Signs Vital Signs: Vital Signs - 24 hr 08/09/24 12:00 08/09/24 13:44 08/09/24 16:00 Temperature 97 F L Pulse Rate 83 81 78 Respiratory Rate 20 Blood Pressure 106/55 L Pulse Oximetry 100 Oxygen Delivery Oxygen Flow Rate 08/09/24 20:00 08/09/24 20:16 08/09/24 20:30 Temperature 98.2 F Pulse Rate 80 86 Respiratory Rate 16 Blood Pressure 121/73 Pulse Oximetry 99 Oxygen Delivery Nasal Cannula Oxygen Flow Rate 3 08/10/24 00:00 08/10/24 04:00 08/10/24 06:13 Temperature 98.3 F Pulse Rate 80 74 77 Respiratory Rate 16 Blood Pressure 115/61 Pulse Oximetry 95 Oxygen Delivery Oxygen Flow Rate Intake/Output Intake/Output: Intake & Output 08/07/24 08/08/24 08/09/24 08/10/24 23:59 23:59 23:59 23:59 Intake Total 990 2060 910 Output Total 2300 1700 1200 Balance -1310 360 -290 Meds/Results Medications: Active Medications Generic Name Dose Route Start Last Admin Trade Name Freq PRN Reason Stop Dose Admin Acetaminophen 650 mg 08/07/24 16:28 Acetaminophen 325 Mg Tablet PO Q4H PRN Mild Pain (1-3) or Fever Hydrocodone Bitart/Acetaminophen 1 tab 08/07/24 16:28 Hydrocodone/Acetaminophen (*Crx) 5-325 Mg Tablet PO Q4H PRN Pain Rated 4-6 Cyanocobalamin 1,000 mcg 08/08/24 09:00 08/10/24 08:02 Cyanocobalamin 1,000 Mcg Tablet PO 1,000 mcg DAILY DELROY Administration Empagliflozin 10 mg 08/08/24 09:00 08/10/24 08:02 Empagliflozin 10 Mg Tablet PO 10 mg DAILY DELROY Administration Enoxaparin Sodium 40 mg 08/07/24 21:00 08/10/24 08:05 Enoxaparin 40 Mg/0.4 Ml Syringe SUB-Q 40 mg Q12HR DELROY Administration Furosemide 40 mg 08/07/24 21:00 08/10/24 08:05 Furosemide Inj 40 Mg/4 Ml Vial IV PUSH 40 mg Q12HR DELROY Administration Hydroxychloroquine Sulfate 200 mg 08/08/24 09:00 08/10/24 08:04 Hydroxychloroquine Sulfate 200 Mg Tablet PO 200 mg Q12HR DELROY Administration Ondansetron HCl 4 mg 08/07/24 16:28 Ondansetron Inj 4 Mg/2 Ml Vial IV PUSH Q4H PRN Nausea Perflutren Lipid Microsphere 0 ml 08/09/24 08:16 Perflutren Lipid Microspheres 1.5 Ml Vial Diluted To 10 Ml Total Volume IV PUSH 08/12/24 08:16 ONCE PRN adequate visualization Protocol Radiology Results: ITS Impressions Chest X-Ray 12/09/24 15:18 IMPRESSION: Mild interstitial edema versus artifact from crowding. Mild bibasilar plexus/scar. Chronic right hemidiaphragm elevation. Venous Doppler Study 08/07/24 17:15 IMPRESSION: Limited visualization of the lower extremity veins abdomen below the level of t he knees as detailed above. No DVT detected in the adequately visualized veins. Abdomen Ultrasound 08/08/24 15:34 IMPRESSION: normal limited abdominal ultrasound. Labs Labs: Laboratory Results - last 24 hr 08/10/24 05:08 WBC 5.4 RBC 5.04 Hgb 11.3 L Hct 41.5 MCV 82.3 MCH 22.4 L MCHC 27.2 L RDW 19.9 H Plt Count 181 MPV 11.6 H Immature Gran % (Auto) 0.4 Neut % (Auto) 73.9 H Lymph % (Auto) 11.9 L [place] % (Auto) 8.6 H Eos % (Auto) 4.5 H Baso % (Auto) 0.7 Lymph # (Auto) 0.64 L [place] # (Auto) 0.5 Eos # (Auto) 0.2 Baso # (Auto) 0.0 Abs Immat Gran (auto) 0.02 Absolute Neuts (auto) 4.0 Absolute Nucleated RBC 0.020 H Nucleated RBC % 0.4 H Platelet Estimate Adequate % Immature Plt Fraction 5.1 Hypochromasia 1+ Schistocytes None seen Sodium 138 Potassium 4.2 Chloride 100 Carbon Dioxide 37 H Anion Gap 1 L BUN 34 H Creatinine 0.70 Estim Creat Clear Calc 110 Estimated GFR > 60 Glucose 80 Calcium 8.0 L Total Bilirubin 1.3 AST 73 H ALT 134 H Alkaline Phosphatase 94 Total Protein 7.0 Albumin 2.9 L Quality VTE Prophylaxis VTE prophylaxis: pharmacologic ordered Hospitalist [facility] Advance Care Plan I have confirmed that the patient's Advanced Care Plan is present, code status is documented, or surrogate decision maker is listed in patient medical record.: Yes Medication Reconciliation I have utilized all available resources to obtain, update and review the patients current medications (includes all prescriptions, OTC, herbals, cannabis, and nutritional supplements).: Yes
--- NOTE | 2024-08-10 13:27 | PM.PNCARD ---
Progress Note: A&P Assessment and Plan (1) CHF (congestive heart failure): Qualifiers: Heart failure chronicity: unspecified Heart failure type: diastolic Qualified Code(s): I50.30 - Unspecified diastolic (congestive) heart failure Code(s): I50.9 - Heart failure, unspecified Status: Acute Plan Acute on chronic diastolic heart failure Lymphedema Morbid obesity Obstructive sleep apnea Hypertension Systemic lupus erythematosus - Resume spironolactone as her renal function has improved - Compression stockings - Lasix has been increased to 60mg IV b.i.d - Strict I/Os to be monitored - Blood pressure control - Weight loss - would recommend GLP-1 - Will add Entresto 24-26mg b.i.d. to her regimen once she has been transitioned back to oral furosemide Subjective Date/time seen: 08/10/24 13:27 Interval history: Cardiology follow up visit She is feeling better today. Feels less short of breath. Still has lower extremity edema. No palpitations or chest pain. Review of Systems Review of Systems: 12 systems were reviewed with pertinent positives and negatives per HPI. Except as documented in the HPI, all other systems were reviewed and are negative. All systems reviewed & are unremarkable except as noted in HPI and below Constitutional: Constitutional: Reports no additional constitutional complaints ENT: Reports system reviewed and no additional complaints, except as documented Cardiovascular: Cardiovascular: Reports no additional cardiovascular complaints and Reports dyspnea Respiratory: Respiratory: Denies cough, Reports dyspnea and Denies wheezing Gastrointestinal: Gastrointestinal: Reports no additional gastrointestinal complaints Allergic/Immunologic: Allergic/Immunologic: Denies wheezing Exam Narrative: Morbidly obese female sitting on the edge of the bed. Comfortable and in no distress Const: General: comfortable, no acute distress, alert and awake Orientation/consciousness: patient oriented x3 HENMT: Head: normal to inspection Eyes: General: appearance normal, both eyes and all related structures Pupils: Equal, round and reactive pupils present Neck: Neck: normal visual inspection and supple Carotids: normal carotid upstroke Resp: Effort & Inspection: normal respiratory effort Auscultation: not clear to auscultation bilaterally, crackles and diminished lung sounds Cardio: Rate: regular rate Rhythm: regular rhythm Heart sounds: S1 normal heart sound present, S2 normal heart sound present and no murmurs GI: Auscultation: normal bowel sounds Skin: General skin exam: normal color Neuro: General: patient oriented x3 Cranial nerves: Yes Equal, round and reactive pupils present Extrem: General: edema and pedal edema Psych: Appearance: grossly normal Mental Status: mental status grossly normal Objective Data Vital Signs Vital Signs: Vital Signs - 24 hr 08/09/24 13:44 08/09/24 16:00 08/09/24 20:00 Temperature 36.1 C L Pulse Rate 81 78 80 Respiratory Rate 20 Blood Pressure 106/55 L Pulse Oximetry 100 Oxygen Delivery Oxygen Flow Rate 08/09/24 20:16 08/09/24 20:30 08/10/24 00:00 Temperature 36.8 C Pulse Rate 86 80 Respiratory Rate 16 Blood Pressure 121/73 Pulse Oximetry 99 Oxygen Delivery Nasal Cannula Oxygen Flow Rate 3 08/10/24 04:00 08/10/24 06:13 08/10/24 08:05 Temperature 36.8 C Pulse Rate 74 77 Respiratory Rate 16 Blood Pressure 115/61 Pulse Oximetry 95 98 Oxygen Delivery Nasal Cannula Oxygen Flow Rate 3 08/10/24 08:05 08/10/24 12:00 Temperature Pulse Rate 73 84 Respiratory Rate Blood Pressure Pulse Oximetry Oxygen Delivery Oxygen Flow Rate Intake/Output Intake/Output: Intake & Output 08/07/24 08/08/24 08/09/24 08/10/24 23:59 23:59 23:59 23:59 Intake Total 990 2060 910 Output Total 2300 1700 1200 Balance -1310 360 -290 Meds/Results Medications: Active Medications Generic Name Dose Route Start Last Admin Trade Name Freq PRN Reason Stop Dose Admin Acetaminophen 650 mg 08/07/24 16:28 Acetaminophen 325 Mg Tablet PO Q4H PRN Mild Pain (1-3) or Fever Hydrocodone Bitart/Acetaminophen 1 tab 08/07/24 16:28 Hydrocodone/Acetaminophen (*Crx) 5-325 Mg Tablet PO Q4H PRN Pain Rated 4-6 Cyanocobalamin 1,000 mcg 08/08/24 09:00 08/10/24 08:02 Cyanocobalamin 1,000 Mcg Tablet PO 1,000 mcg DAILY DELROY Administration Empagliflozin 10 mg 08/08/24 09:00 08/10/24 08:02 Empagliflozin 10 Mg Tablet PO 10 mg DAILY DELROY Administration Enoxaparin Sodium 40 mg 08/07/24 21:00 08/10/24 08:05 Enoxaparin 40 Mg/0.4 Ml Syringe SUB-Q 40 mg Q12HR DELROY Administration Furosemide 60 mg 08/10/24 21:00 Furosemide Inj 40 Mg/4 Ml Vial IV PUSH Q12HR DELROY Hydroxychloroquine Sulfate 200 mg 08/08/24 09:00 08/10/24 08:04 Hydroxychloroquine Sulfate 200 Mg Tablet PO 200 mg Q12HR DELROY Administration Ondansetron HCl 4 mg 08/07/24 16:28 Ondansetron Inj 4 Mg/2 Ml Vial IV PUSH Q4H PRN Nausea Perflutren Lipid Microsphere 0 ml 08/09/24 08:16 Perflutren Lipid Microspheres 1.5 Ml Vial Diluted To 10 Ml Total Volume IV PUSH 08/12/24 08:16 ONCE PRN adequate visualization Protocol Radiology Results: ITS Impressions Chest X-Ray 08/07/24 15:18 IMPRESSION: Mild interstitial edema versus artifact from crowding. Mild bibasilar plexus/scar. Chronic right hemidiaphragm elevation. Venous Doppler Study 08/07/24 17:15 IMPRESSION: Limited visualization of the lower extremity veins abdomen below the level of the knees as detailed above. No DVT detected in the adequately visualized veins. Abdomen Ultrasound 08/08/24 15:34 IMPRESSION: normal limited abdominal ultrasound. Labs Labs: Laboratory Results - last 24 hr 08/10/24 05:08 WBC 5.4 RBC 5.04 Hgb 11.3 L Hct 41.5 MCV 82.3 MCH 22.4 L MCHC 27.2 L RDW 19.9 H Plt Count 181 MPV 11.6 H Immature Gran % (Auto) 0.4 Neut % (Auto) 73.9 H Lymph % (Auto) 11.9 L [place] % (Auto) 8.6 H Eos % (Auto) 4.5 H Baso % (Auto) 0.7 Lymph # (Auto) 0.64 L [place] # (Auto) 0.5 Eos # (Auto) 0.2 Baso # (Auto) 0.0 Abs Immat Gran (auto) 0.02 Absolute Neuts (auto) 4.0 Absolute Nucleated RBC 0.020 H Nucleated RBC % 0.4 H Platelet Estimate Adequate % Immature Plt Fraction 5.1 Hypochromasia 1+ Schistocytes None seen Sodium 138 Potassium 4.2 Chloride 100 Carbon Dioxide 37 H Anion Gap 1 L BUN 34 H Creatinine 0.70 Estim Creat Clear Calc 110 Estimated GFR > 60 Glucose 80 Calcium 8.0 L Total Bilirubin 1.3 AST 73 H ALT 134 H Alkaline Phosphatase 94 Total Protein 7.0 Albumin 2.9 L Quality VTE Prophylaxis VTE prophylaxis: pharmacologic ordered
[2024-08-10 18:26] LABS: Blood Urea Nitrogen 34 mg/dL (7-17); Calcium 8.1 mg/dL (8.4-10.2); Carbon Dioxide > 40 mmol/L (22-30); Chloride 95 mmol/L (98-107); Estimated CRCL calculation 87 ml/min; Estimated Glomerular Filt Rate > 60; Glucose 88 mg/dL (65-110); Magnesium 2.1 mg/dL (1.6-2.3); Phosphorus 4.4 mg/dL (2.5-4.5); Potassium 4.9 mmol/L (3.4-5.0); Sodium 140 mmol/L (137-145)
[2024-08-10] MEDS: FUROSEMIDE INJ 40 MG/4 ML VIAL 60 MG IV PUSH (21:24)
[2024-08-11] VITALS (19 sets, daily range): BP systolic 102–120; BP diastolic 47–71; PULSE 69–89; RESP 16–28; TEMP 36.1–36.8; O2SAT 90–100
[2024-08-11 05:22] LABS: Basophils Percent Auto 0.7 % (0.2-1.2); Eosinophils Absolute Auto 0.2 K/mm3 (0-0.3); Eosinophils Percent Auto 5.7 % (0-4.4); Hematocrit 40.5 % (37.0-47.0); Hemoglobin 11.2 g/dL (12.0-15.0); Immature Granulocyte Absolute 0.01 K/mm3 (0.00-0.031); Immature Granulocyte Percent A 0.2 % (0-0.5); Lymphocytes Absolute Auto 0.64 K/mm3 (0.9-3.2); Lymphocytes Percent Auto 15.1 % (18.3-44.2); Mean Corpuscular HGB Conc 27.7 g/dl (32-36); Mean Corpuscular Hemoglobin 22.4 pg (26-34); Mean Platelet Volume 10.1 fl (7.4-10.4); Monocytes Absolute Auto 0.3 K/mm3 (0.1-0.6); Monocytes Percent Auto 7.3 % (2.6-8.5); Platelet Count Result 181 k/mm3 (150-375); Red Cell Distribution Width 19.6 % (11.5-14.5); White Blood Count 4.2 K/mm3 (4.5-10.0)
[2024-08-11 05:39] LABS: Alanine Aminotransferase 101 U/L (6-35); Albumin Level 2.9 g/dL (3.5-5.1); Alkaline Phosphatase 92 U/L (38-126); Aspartate Amino Transferase 49 U/L (14-36); Bilirubin,Total 1.2 mg/dL (0.2-1.3); Blood Urea Nitrogen 29 mg/dL (7-17); Calcium 8.1 mg/dL (8.4-10.2); Carbon Dioxide > 40 mmol/L (22-30); Chloride 95 mmol/L (98-107); Estimated CRCL calculation 96 ml/min; Estimated Glomerular Filt Rate > 60; Glucose 89 mg/dL (65-110); Phosphorus 3.9 mg/dL (2.5-4.5); Potassium 3.8 mmol/L (3.4-5.0); Sodium 139 mmol/L (137-145)
[2024-08-11 05:47] LABS: Hypochromasia 1+; Platelet Estimate Adequate (Adequate)
[2024-08-11 05:48] LABS: Schistocytes None Seen
--- NOTE | 2024-08-11 08:52 | P.PNIM_ITS ---
Progress Note: A&P Assessment and Plan (1) CHF (congestive heart failure): Qualifiers: Heart failure chronicity: unspecified Heart failure type: diastolic Qualified Code(s): I50.30 - Unspecified diastolic (congestive) heart failure Code(s): I50.9 - Heart failure, unspecified Status: Acute Assessment and Plan: Previous ECHO from February shows EF of 55-60% and some diastolic dysfunction. Currently with evidence of Volume overload per CXR and Physical Exam. 08/10 TTE: 1. Complete two-dimensional, color flow and Doppler transthoracic echocardiogram is performed. 2. Left ventricular chamber dimension is normal. 3. Left ventricular wall thickness is normal. 4. Left ventricular systolic function is mildly reduced with a visually estimated ejection fraction of 50-55%. 5. Left ventricular septal wall motion shows abnormal septal motion due to RV pressure and volume load. 6. Right ventricular chamber dimension is enlarged. 7. Right ventricular systolic function is reduced. 8. Right atrial chamber dimension is enlarged. 9. Possible Patent foramen ovale (PFO) on color flow imaging. 10. There is moderate tricuspid valve regurgitation. 11. Mild pulmonary hypertension, estimated pulmonary arterial systolic pressure is 52 mmHg. 12. Dilated inferior vena cava with <50% collapse upon inspiration consistent with elevated right atrial pressure, 15 mmHg. PLAN * Continue Lasix IV. Received 40-40-60 yesterday, Continue 60mg IV BID. Continue BMP, Mag, phos q12 * Cardiology consulted, appreciate recommendations * Monitor labs and VS and trend. * Weight trending up: 130.9 kg on 08/07/24, 137.5 kg 08/09, 138.1kg 08/10. 136.2kg 08/11 * Fluid restriction 1000ml per day * I&O * Continuing jardiance (2) Acute hypoxic respiratory failure: Code(s): J96.01 - Acute respiratory failure with hypoxia Status: Acute Assessment and Plan: Not using oxygen at home Continue Supplemental oxygen. * Continue supplemental oxygen. * Home oxygen determination ordered. Pt will need it for her BiPap that polysomnography recommends bleed in of 4L. Continue BiPap with settings of 18/8;R23;3L. Will need for home * Wean O2 today * Monitor labs and VS. * Continue treatment of heart failure as noted (3) Transaminitis: Code(s): R74.01 - Elevation of levels of liver transaminase levels Status: Acute Assessment and Plan: LFT's elevated on admission. AST/ALT 151/189, Bilirubin 1.4 Suspect elevated 2/2 heart failure, LFT's improving. No nausea or abdominal pain * Improved today: 73/134/Bili 1.3 * 08/08 US RUQ normal (4) Lymphedema of both lower extremities: Code(s): I89.0 - Lymphedema, not elsewhere classified Status: Acute Assessment and Plan: Likely 2/2 fluid overload. Patient reports no edema earlier this month * NORMAN wraps are in place bilaterally and edema is slightly improved as compared to yesterday. * Continue NORMAN wraps and elevation of extremities when in bed * Diuresis as noted (5) STAS (obstructive sleep apnea): Code(s): G47.33 - Obstructive sleep apnea (adult) (pediatric) Status: Acute Assessment and Plan: Obesity contributing or causing STAS and contributes to other medical issues. Untreated STAS also exacerbating heart failure. Tolerating Bipap * Continue BiPap, started in the hospital. Settings of 18/8 w/3L oxygen bled in. * Order placed to set up home BiPap based on Polysomnography recs. * Pt again tolerated BiPap well last evening. She is still awaiting home set up. (6) Essential (primary) hypertension: Onset Date: Unknown Code(s): I10 - Essential (primary) hypertension Status: Acute Assessment and Plan: Blood pressure low normal, tolerating diuresis. Blood pressure ranging 104-130/53-73 * Diuresing as noted (7) SLE (systemic lupus erythematosus): Onset Date: Unknown Qualifiers: Systemic lupus erythematosus type: unspecified Systemic lupus erythematosus organ involvement: unspecified Qualified Code(s): M32.9 - Systemic lupus erythematosus, unspecified Code(s): M32.9 - Systemic lupus erythematosus, unspecified Status: Chronic Assessment and Plan: * Continue Hydroxychloroquine (8) Morbid obesity: Onset Date: Unknown Code(s): E66.01 - Morbid (severe) obesity due to excess calories Status: Chronic Assessment and Plan: * Recommend lifestyle changes to decrease Cardiovascular risk Plan Weaning O2, increasing diuresis Time Spent With Patient Time: 59 minutes Subjective Date/time seen: 08/11/24 10:35 Interval history: Neg negative 0 yesterday after lasix 40x2 & 60mg. Still on 3L O2 but sat 97%. Labs stable Weight 136.2 today, improved from yesterday. Added a fluid restriction yesterday. 60 IV BID today. LFT's improving. VSS. Planning to add entresto eventually, but still overloaded Hospital Course: The patient is a 49 year old female pt was examined at the bedside today in interval assessment. Pt reports she is feeling better overall. She has been on BiPap now for two nights in a row w/3L oxygen bled in, settings of 18/8 w/resp 23 and has tolerated well, and planning bipap for home. May need oxygen at home. Diuresing with IV lasix, limited by blood pressures. Cardiology following. TTE 08/09 showed mildly reduced LVEF, 50-55%, left ventricular septal wall motion due to RV pressure and volume load. Possible PFO. Dilated right atrial pressure Review of Systems Review of Systems: 12 systems were reviewed with pertinent positives and negatives per HPI. Except as documented in the HPI, all other systems were reviewed and are negative. All systems reviewed & are unremarkable except as noted in HPI and below Exam Narrative: CONSTITUTIONAL: Obese, female pt lying sitting on side of bed at this time in no acute distress. She has no acute dyspnea present. HENMT: Atraumatic and normocephalic. MMM and patent oropharynx without any exudate, edema or erythema. EYES: PERRLA, EOMs intact, Conjunctiva are clear NECK: Supple, FROM RESPIRATORY: Diminished in bases bilaterally posterior and faint crackles present. CARDIOVASCULAR: RRR, S1 and S2 present. No S3, S4, m,r,g,h or displacement of PMI. GI: Soft, NT, BS+x4, no guarding, rebound : Deferred SKIN: Intact, warm, dry, without lesion NEURO: Grossly intact without any focal abnormalities EXTREMITIES: Full AROM of all four extremities without deficit. Generalized edema, bilateral hands and 3+ pitting edema lower extremities. PSYCH: A&Ox4, normal affect. Const: General: comfortable and no acute distress Other: Morbidly obese, no acute distress, appears stated age HENMT: Other: Mucous membranes are tacky, no oral pharyngeal erythema, exam limited due to BiPAP, head is normocephalic atraumatic Eyes: Pupils: Equal, round and reactive pupils present Other: Pupils are equal and reactive, no scleral icterus, no conjunctival pallor Neck: Neck: supple Other: Large neck circumference, supple, nontender Resp: Effort & Inspection: normal respiratory effort Auscultation: no crackles Other: Slightly labored respirations Cardio: Rate: regular rate Rhythm: regular rhythm Heart sounds: no gallops, no murmurs and no rubs Other: Regular rate, regular rhythm, 2+ bilateral radial pulse, 2+ bilateral pedal pulses, difficult to assess for JVD due to body habitus GI: Other: Obese, nontender, positive bowel sounds Skin: Other: Mild Chronic venous stasis changes bilateral lower extremities left greater than right, no jaundice Neuro: Cranial nerves: Yes Equal, round and reactive pupils present Other: Alert orient x4, speech is clear, no facial asymmetry, no localizing neurologic deficits noted during the course of conversation Extrem: Other: Lymphedema with underlying pitting edema, improved. Resolved edema above the knees Psych: Other: Appropriate mood and affect, pleasant and cooperative, judgment and insight intact Objective Data Vital Signs Vital Signs: Vital Signs - 24 hr 08/10/24 12:00 08/10/24 14:06 08/10/24 16:00 Temperature 97.7 F Pulse Rate 84 86 72 Respiratory Rate 24 H Blood Pressure 110/60 Pulse Oximetry 100 Oxygen Delivery Oxygen Flow Rate 08/10/24 20:00 08/10/24 20:00 08/10/24 20:00 Temperature 97.7 F Pulse Rate 88 78 Respiratory Rate 16 Blood Pressure 113/58 L Pulse Oximetry 97 97 Oxygen Delivery Nasal Cannula Oxygen Flow Rate 3 08/11/24 00:00 08/11/24 00:36 08/11/24 01:28 Temperature 97.9 F Pulse Rate 77 80 79 Respiratory Rate 22 H 18 Blood Pressure 107/57 L Pulse Oximetry 95 95 Oxygen Delivery BiPAP Oxygen Flow Rate 08/11/24 02:03 08/11/24 04:00 08/11/24 05:10 Temperature 97.7 F Pulse Rate 69 77 Respiratory Rate 20 16 Blood Pressure 103/66 Pulse Oximetry 95 95 Oxygen Delivery BiPAP Oxygen Flow Rate 08/11/24 08:00 Temperature Pulse Rate 75 Respiratory Rate 20 Blood Pressure 102/71 Pulse Oximetry 95 Oxygen Delivery Oxygen Flow Rate Intake/Output Intake/Output: Intake & Output 08/08/24 08/09/24 08/10/24 08/11/24 23:59 23:59 23:59 23:59 Intake Total 990 2060 1390 200 Output Total 2300 1700 3200 1000 Balance -1310 360 -1810 -800 Meds/Results Medications: Active Medications Generic Name Dose Route Start Last Admin Trade Name Freq PRN Reason Stop Dose Admin Acetaminophen 650 mg 08/07/24 16:28 Acetaminophen 325 Mg Tablet PO Q4H PRN Mild Pain (1-3) or Fever Hydrocodone Bitart/Acetaminophen 1 tab 08/07/24 16:28 Hydrocodone/Acetaminophen (*Crx) 5-325 Mg Tablet PO Q4H PRN Pain Rated 4-6 Cyanocobalamin 1,000 mcg 08/08/24 09:00 08/10/24 08:02 Cyanocobalamin 1,000 Mcg Tablet PO 1,000 mcg DAILY DELROY Administration Empagliflozin 10 mg 08/08/24 09:00 08/10/24 08:02 Empagliflozin 10 Mg Tablet PO 10 mg DAILY DELROY Administration Enoxaparin Sodium 40 mg 08/07/24 21:00 08/10/24 21:26 Enoxaparin 40 Mg/0.4 Ml Syringe SUB-Q 40 mg Q12HR DELROY Administration Furosemide 60 mg 08/10/24 21:00 08/10/24 21:24 Furosemide Inj 40 Mg/4 Ml Vial IV PUSH 60 mg Q12HR DELROY Administration Hydroxychloroquine Sulfate 200 mg 08/08/24 09:00 08/10/24 21:26 Hydroxychloroquine Sulfate 200 Mg Tablet PO 200 mg Q12HR DELROY Administration Ondansetron HCl 4 mg 08/07/24 16:28 Ondansetron Inj 4 Mg/2 Ml Vial IV PUSH Q4H PRN Nausea Perflutren Lipid Microsphere 0 ml 08/09/24 08:16 Perflutren Lipid Microspheres 1.5 Ml Vial Diluted To 10 Ml Total Volume IV PUSH 08/12/24 08:16 ONCE PRN adequate visualization Protocol Spironolactone 25 mg 08/11/24 09:00 Spironolactone 25 Mg Tablet PO QAM [facility] Radiology Results: ITS Impressions Chest X-Ray 08/07/24 15:18 IMPRESSION: Mild interstitial edema versus artifact from crowding. Mild bibasilar plexus/scar. Chronic right hemidiaphragm elevation. Venous Doppler Study 08/07/24 17:15 IMPRESSION: Limited visualization of the lower extremity veins abdomen below the level of the knees as detailed above. No DVT detected in the adequately visualized veins. Abdomen Ultrasound 08/08/24 15:34 IMPRESSION: normal limited abdominal ultrasound. Labs Labs: Laboratory Results - last 24 hr 08/10/24 08/11/24 17:22 04:51 WBC 4.2 L RBC 5.00 Hgb 11.2 L Hct 40.5 MCV 81.0 MCH 22.4 L MCHC 27.7 L RDW 19.6 H Plt Count 181 MPV 10.1 Immature Gran % (Auto) 0.2 Neut % (Auto) 71.0 Lymph % (Auto) 15.1 L [place] % (Auto) 7.3 Eos % (Auto) 5.7 H Baso % (Auto) 0.7 Lymph # (Auto) 0.64 L [place] # (Auto) 0.3 Eos # (Auto) 0.2 Baso # (Auto) 0.0 Abs Immat Gran (auto) 0.01 Absolute Neuts (auto) 3.0 Absolute Nucleated RBC 0.000 Nucleated RBC % 0.0 Platelet Estimate Adequate Hypochromasia 1+ Schistocytes None seen Sodium 140 139 Potassium 4.9 3.8 Chloride 95 L 95 L Carbon Dioxide > 40 H > 40 H Anion Gap BUN 34 H 29 H Creatinine 0.90 0.80 Estim Creat Clear Calc 87 96 Estimated GFR > 60 > 60 Glucose 88 89 Calcium 8.1 L 8.1 L Phosphorus 4.4 3.9 Magnesium 2.1 2.0 Total Bilirubin 1.2 AST 49 H ALT 101 H Alkaline Phosphatase 92 Total Protein 7.0 Albumin 2.9 L Quality VTE Prophylaxis VTE prophylaxis: pharmacologic ordered Hospitalist [facility] Advance Care Plan I have confirmed that the patient's Advanced Care Plan is present, code status is documented, or surrogate decision maker is listed in patient medical record.: Yes Medication Reconciliation I have utilized all available resources to obtain, update and review the patients current medications (includes all prescriptions, OTC, herbals, cannabis, and nutritional supplements).: Yes
[2024-08-11] MEDS: HYDROXYCHLOROQUINE SULFATE 200 MG TABLET PO ×2 (09:06→20:31)
[2024-08-11] MEDS: POTASSIUM CHLORIDE 20 MEQ ER TABLET 40 MEQ PO (09:06)
[2024-08-11] MEDS: SPIRONOLACTONE 25 MG TABLET PO (09:07)
[2024-08-11] MEDS: CYANOCOBALAMIN 1,000 MCG TABLET 1000 MCG PO (09:07)
[2024-08-11] MEDS: ENOXAPARIN 40 MG/0.4 ML SYRINGE SUB-Q ×2 (09:07→20:31)
[2024-08-11] MEDS: EMPAGLIFLOZIN 10 MG TABLET PO (09:07)
[2024-08-11] MEDS: FUROSEMIDE INJ 40 MG/4 ML VIAL 60 MG IV PUSH ×2 (09:07→20:31)
--- NOTE | 2024-08-11 11:14 | P.PNCA_ITS ---
Progress Note: A&P Assessment and Plan (1) CHF (congestive heart failure): Qualifiers: Heart failure chronicity: unspecified Heart failure type: diastolic Qualified Code(s): I50.30 - Unspecified diastolic (congestive) heart failure Code(s): I50.9 - Heart failure, unspecified Status: Acute Plan Acute on chronic diastolic heart failure Lymphedema Morbid obesity Obstructive sleep apnea Hypertension Systemic lupus erythematosus - Resume spironolactone as her renal function has improved - Compression stockings - Lasix has been increased to 60mg IV b.i.d - Strict I/Os to be monitored - Blood pressure control - Weight loss - would recommend GLP-1 - Will add Entresto 24-26mg b.i.d. to her regimen once she has been transitioned back to oral furosemide Subjective Date/time seen: 08/11/24 11:14 Interval history: Cardiology follow up visit She is feeling better today. Feels less short of breath. Still has lower extremity edema. No palpitations or chest pain. Date of service 08/11/2024: Continues to improve. Making good urine. Breathing is better. Legs wrapped today. Review of Systems Review of Systems: 12 systems were reviewed with pertinent positives and negatives per HPI. Except as documented in the HPI, all other systems were reviewed and are negative. All systems reviewed & are unremarkable except as noted in HPI and below Constitutional: Constitutional: Reports no additional constitutional complaints ENT: Reports system reviewed and no additional complaints, except as documented Cardiovascular: Cardiovascular: Reports no additional cardiovascular complaints and Reports dyspnea Respiratory: Respiratory: Denies cough, Reports dyspnea and Denies wheezing Gastrointestinal: Gastrointestinal: Reports no additional gastrointestinal complaints Allergic/Immunologic: Allergic/Immunologic: Denies wheezing Exam Narrative: Morbidly obese female sitting on the edge of the bed. Comfortable and in no distress Const: General: comfortable, no acute distress, alert and awake Orientation/consciousness: patient oriented x3 HENMT: Head: normal to inspection Eyes: General: appearance normal, both eyes and all related structures Pupils: Equal, round and reactive pupils present Neck: Neck: normal visual inspection and supple Carotids: normal carotid upstroke Resp: Effort & Inspection: normal respiratory effort Auscultation: not clear to auscultation bilaterally, crackles and diminished lung sounds Cardio: Rate: regular rate Rhythm: regular rhythm Heart sounds: S1 normal heart sound present, S2 normal heart sound present and no murmurs GI: Auscultation: normal bowel sounds Skin: General skin exam: normal color Neuro: General: patient oriented x3 Cranial nerves: Yes Equal, round and reactive pupils present Extrem: General: edema and pedal edema Psych: Appearance: grossly normal Mental Status: mental status grossly normal Objective Data Vital Signs Vital Signs: Vital Signs - 24 hr 08/10/24 12:00 08/10/24 14:06 08/10/24 16:00 Temperature 36.5 C Pulse Rate 84 86 72 Respiratory Rate 24 H Blood Pressure 110/60 Pulse Oximetry 100 Oxygen Delivery Oxygen Flow Rate 08/10/24 20:00 08/10/24 20:00 08/10/24 20:00 Temperature 36.5 C Pulse Rate 88 78 Respiratory Rate 16 Blood Pressure 113/58 L Pulse Oximetry 97 97 Oxygen Delivery Nasal Cannula Oxygen Flow Rate 3 08/11/24 00:00 08/11/24 00:36 08/11/24 01:28 Temperature 36.6 C Pulse Rate 77 80 79 Respiratory Rate 22 H 18 Blood Pressure 107/57 L Pulse Oximetry 95 95 Oxygen Delivery BiPAP Oxygen Flow Rate 08/11/24 02:03 08/11/24 04:00 08/11/24 05:10 Temperature 36.5 C Pulse Rate 69 77 Respiratory Rate 20 16 Blood Pressure 103/66 Pulse Oximetry 95 95 Oxygen Delivery BiPAP Oxygen Flow Rate 08/11/24 08:00 08/11/24 09:05 Temperature Pulse Rate 75 77 Respiratory Rate 20 Blood Pressure 102/71 119/63 Pulse Oximetry 95 97 Oxygen Delivery Oxygen Flow Rate Intake/Output Intake/Output: Intake & Output 08/08/24 08/09/24 08/10/24 08/11/24 23:59 23:59 23:59 23:59 Intake Total 990 2060 1390 400 Output Total 2300 1700 3200 1800 Balance -1310 360 -6480 -1400 Meds/Results Medications: Active Medications Generic Name Dose Route Start Last Admin Trade Name Freq PRN Reason Stop Dose Admin Acetaminophen 650 mg 08/07/24 16:28 Acetaminophen 325 Mg Tablet PO Q4H PRN Mild Pain (1-3) or Fever Hydrocodone Bitart/Acetaminophen 1 tab 08/07/24 16:28 Hydrocodone/Acetaminophen (*Crx) 5-325 Mg Tablet PO Q4H PRN Pain Rated 4-6 Cyanocobalamin 1,000 mcg 08/08/24 09:00 08/11/24 09:07 Cyanocobalamin 1,000 Mcg Tablet PO 1,000 mcg DAILY DELROY Administration Empagliflozin 10 mg 08/08/24 09:00 08/11/24 09:07 Empagliflozin 10 Mg Tablet PO 10 mg DAILY DELROY Administration Enoxaparin Sodium 40 mg 08/07/24 21:00 08/11/24 09:07 Enoxaparin 40 Mg/0.4 Ml Syringe SUB-Q 40 mg Q12HR DELROY Administration Furosemide 60 mg 08/10/24 21:00 08/11/24 09:07 Furosemide Inj 40 Mg/4 Ml Vial IV PUSH 60 mg Q12HR DELROY Administration Hydroxychloroquine Sulfate 200 mg 08/08/24 09:00 08/11/24 09:06 Hydroxychloroquine Sulfate 200 Mg Tablet PO 200 mg Q12HR DELROY Administration Ondansetron HCl 4 mg 08/07/24 16:28 Ondansetron Inj 4 Mg/2 Ml Vial IV PUSH Q4H PRN Nausea Perflutren Lipid Microsphere 0 ml 08/09/24 08:16 Perflutren Lipid Microspheres 1.5 Ml Vial Diluted To 10 Ml Total Volume IV PUSH 08/12/24 08:16 ONCE PRN adequate visualization Protocol Potassium Chloride 40 meq 08/11/24 09:00 08/11/24 09:06 Potassium Chloride 20 Meq Er Tablet PO 40 meq DAILY DELROY Administration Spironolactone 25 mg 08/11/24 09:00 08/11/24 09:07 Spironolactone 25 Mg Tablet PO 25 mg QAM DELROY Administration Radiology Results: ITS Impressions Chest X-Ray 08/07/24 15:18 IMPRESSION: Mild interstitial edema versus artifact from crowding. Mild bibasilar plexus/scar. Chronic right hemidiaphragm elevation. Venous Doppler Study 08/07/24 17:15 IMPRESSION: Limited visualization of the lower extremity veins abdomen below the level of the knees as detailed above. No DVT detected in the adequately visualized veins. Abdomen Ultrasound 08/08/24 15:34 IMPRESSION: normal limited abdominal ultrasound. Labs Labs: Laboratory Results - last 24 hr 08/10/24 08/11/24 17:22 04:51 WBC 4.2 L RBC 5.00 Hgb 11.2 L Hct 40.5 MCV 81.0 MCH 22.4 L MCHC 27.7 L RDW 19.6 H Plt Count 181 MPV 10.1 Immature Gran % (Auto) 0.2 Neut % (Auto) 71.0 Lymph % (Auto) 15.1 L [place] % (Auto) 7.3 Eos % (Auto) 5.7 H Baso % (Auto) 0.7 Lymph # (Auto) 0.64 L [place] # (Auto) 0.3 Eos # (Auto) 0.2 Baso # (Auto) 0.0 Abs Immat Gran (auto) 0.01 Absolute Neuts (auto) 3.0 Absolute Nucleated RBC 0.000 Nucleated RBC % 0.0 Platelet Estimate Adequate Hypochromasia 1+ Schistocytes None seen Sodium 140 139 Potassium 4.9 3.8 Chloride 95 L 95 L Carbon Dioxide > 40 H > 40 H Anion Gap BUN 34 H 29 H Creatinine 0.90 0.80 Estim Creat Clear Calc 87 96 Estimated GFR > 60 > 60 Glucose 88 89 Calcium 8.1 L 8.1 L Phosphorus 4.4 3.9 Magnesium 2.1 2.0 Total Bilirubin 1.2 AST 49 H ALT 101 H Alkaline Phosphatase 92 Total Protein 7.0 Albumin 2.9 L
[2024-08-11 17:28] LABS: Blood Urea Nitrogen 28 mg/dL (7-17); Calcium 8.2 mg/dL (8.4-10.2); Carbon Dioxide > 40 mmol/L (22-30); Chloride 94 mmol/L (98-107); Estimated CRCL calculation 96 ml/min; Estimated Glomerular Filt Rate > 60; Glucose 88 mg/dL (65-110); Magnesium 2.1 mg/dL (1.6-2.3); Phosphorus 3.8 mg/dL (2.5-4.5); Potassium 4.4 mmol/L (3.4-5.0); Sodium 140 mmol/L (137-145)
[2024-08-12] VITALS (11 sets, daily range): BP systolic 102–125; BP diastolic 52–66; PULSE 73–112; RESP 16–24; TEMP 36.3–36.7; O2SAT 84–100
[2024-08-12 05:47] LABS: Alanine Aminotransferase 83 U/L (6-35); Albumin Level 3.1 g/dL (3.5-5.1); Alkaline Phosphatase 100 U/L (38-126); Aspartate Amino Transferase 48 U/L (14-36); Bilirubin,Total 1.3 mg/dL (0.2-1.3); Blood Urea Nitrogen 24 mg/dL (7-17); Calcium 8.3 mg/dL (8.4-10.2); Carbon Dioxide > 40 mmol/L (22-30); Chloride 95 mmol/L (98-107); Estimated CRCL calculation 94 ml/min; Estimated Glomerular Filt Rate > 60; Glucose 87 mg/dL (65-110); Magnesium 2.1 mg/dL (1.6-2.3); Phosphorus 3.5 mg/dL (2.5-4.5); Potassium 4.2 mmol/L (3.4-5.0); Sodium 140 mmol/L (137-145)
[2024-08-12 08:40] LABS: Basophils Percent Auto 0.5 % (0.2-1.2); Eosinophils Absolute Auto 0.2 K/mm3 (0-0.3); Eosinophils Percent Auto 4.9 % (0-4.4); Hematocrit 41.5 % (37.0-47.0); Immature Granulocyte Absolute 0.01 K/mm3 (0.00-0.031); Immature Granulocyte Percent A 0.2 % (0-0.5); Immature Platelet Fraction Pct 5.8 % (0.9-11.2); Lymphocytes Absolute Auto 0.64 K/mm3 (0.9-3.2); Lymphocytes Percent Auto 15.8 % (18.3-44.2); Mean Corpuscular HGB Conc 26.5 g/dl (32-36); Mean Corpuscular Hemoglobin 21.9 pg (26-34); Mean Corpuscular Volume 82.7 fl (80-100); Mean Platelet Volume 11.2 fl (7.4-10.4); Monocytes Absolute Auto 0.4 K/mm3 (0.1-0.6); Monocytes Percent Auto 9.1 % (2.6-8.5); Neutrophils Absolute Auto 2.8 K/mm3 (1.3-6.7); Neutrophils Percent Auto 69.5 % (45.5-73.1); Platelet Count Result 172 k/mm3 (150-375); Red Blood Count 5.02 M/mm3 (4.2-5.4); Red Cell Distribution Width 19.7 % (11.5-14.5); White Blood Count 4.1 K/mm3 (4.5-10.0)
[2024-08-12] MEDS: FUROSEMIDE INJ 40 MG/4 ML VIAL 60 MG IV PUSH (08:54)
[2024-08-12] MEDS: SPIRONOLACTONE 25 MG TABLET PO (08:55)
[2024-08-12] MEDS: EMPAGLIFLOZIN 10 MG TABLET PO (08:55)
[2024-08-12] MEDS: HYDROXYCHLOROQUINE SULFATE 200 MG TABLET PO ×2 (08:55→20:29)
[2024-08-12] MEDS: ENOXAPARIN 40 MG/0.4 ML SYRINGE SUB-Q ×2 (08:55→20:29)
[2024-08-12] MEDS: POTASSIUM CHLORIDE 20 MEQ ER TABLET 40 MEQ PO (08:55)
[2024-08-12] MEDS: CYANOCOBALAMIN 1,000 MCG TABLET 1000 MCG PO (08:55)
[2024-08-12 09:04] LABS: Anisocytosis 1+; Hypochromasia 1+; Platelet Estimate Adequate (Adequate); Schistocytes None Seen
--- NOTE | 2024-08-12 11:01 | P.PNIM_ITS ---
Progress Note: A&P Assessment and Plan (1) CHF (congestive heart failure): Qualifiers: Heart failure chronicity: unspecified Heart failure type: diastolic Qualified Code(s): I50.30 - Unspecified diastolic (congestive) heart failure Code(s): I50.9 - Heart failure, unspecified Status: Acute Assessment and Plan: Previous ECHO from February shows EF of 55-60% and some diastolic dysfunction. Currently with evidence of Volume overload per CXR and Physical Exam. 08/10 TTE: 1. Complete two-dimensional, color flow and Doppler transthoracic echocardiogram is performed. 2. Left ventricular chamber dimension is normal. 3. Left ventricular wall thickness is normal. 4. Left ventricular systolic function is mildly reduced with a visually estimated ejection fraction of 50-55%. 5. Left ventricular septal wall motion shows abnormal septal motion due to RV pressure and volume load. 6. Right ventricular chamber dimension is enlarged. 7. Right ventricular systolic function is reduced. 8. Right atrial chamber dimension is enlarged. 9. Possible Patent foramen ovale (PFO) on color flow imaging. 10. There is moderate tricuspid valve regurgitation. 11. Mild pulmonary hypertension, estimated pulmonary arterial systolic pressure is 52 mmHg. 12. Dilated inferior vena cava with <50% collapse upon inspiration consistent with elevated right atrial pressure, 15 mmHg. PLAN * Continue Lasix IV. Received 40-40-60 08/10, 60mg BID 08/11. Continue 60mg this morning, 40mg tonight. Creatinine and electrolytes stable. * BMP, Mag in AM * Cardiology consulted, appreciate recommendations * Monitor labs and VS and trend. * Weight improving with higher dose of lasix and fluid restriction: 130.9 kg on 08/07/24, 137.5 kg 08/09, 138.1kg 08/10. 136.2kg 08/11, 131.1kg 08/12 * Fluid restriction 1000ml per day * I&O * Continuing jardiance (2) Acute hypoxic respiratory failure: Code(s): J96.01 - Acute respiratory failure with hypoxia Status: Acute Assessment and Plan: Not using oxygen at home Continue Supplemental oxygen. * Continue supplemental oxygen. * Home oxygen determination ordered. Pt will need it for her BiPap that polysomnography recommends bleed in of 4L. Continue BiPap with settings of 18/8;R23;3L. Will need for home * Wean O2 today * Monitor labs and VS. * Continue treatment of heart failure as noted (3) Transaminitis: Code(s): R74.01 - Elevation of levels of liver transaminase levels Status: Acute Assessment and Plan: LFT's elevated on admission. AST/ALT 151/189, Bilirubin 1.4 Suspect elevated 2/2 heart failure, LFT's improving. No nausea or abdominal pain * Improved today: 73/134/Bili 1.3 * 12/10 US RUQ normal (4) Lymphedema of both lower extremities: Code(s): I89.0 - Lymphedema, not elsewhere classified Status: Acute Assessment and Plan: Likely 2/2 fluid overload. Patient reports no edema earlier this month * NORMAN wraps are in place bilaterally and edema is slightly improved as compared to yesterday. * Continue NORMAN wraps and elevation of extremities when in bed * Diuresis as noted (5) STAS (obstructive sleep apnea): Code(s): G47.33 - Obstructive sleep apnea (adult) (pediatric) Status: Acute Assessment and Plan: Obesity contributing or causing STAS and contributes to other medical issues. Untreated STAS also exacerbating heart failure. Tolerating Bipap * Continue BiPap, started in the hospital. Settings of 18/8 w/3L oxygen bled in. * Order placed to set up home BiPap based on Polysomnography recs. * Pt again tolerated BiPap well last evening. She is still awaiting home set up. (6) Essential (primary) hypertension: Onset Date: Unknown Code(s): I10 - Essential (primary) hypertension Status: Acute Assessment and Plan: Blood pressure low normal, tolerating diuresis. Blood pressure ranging 104-130/53-73 * Diuresing as noted (7) SLE (systemic lupus erythematosus): Onset Date: Unknown Qualifiers: Systemic lupus erythematosus type: unspecified Systemic lupus erythematosus organ involvement: unspecified Qualified Code(s): M32.9 - Systemic lupus erythematosus, unspecified Code(s): M32.9 - Systemic lupus erythematosus, unspecified Status: Chronic Assessment and Plan: * Continue Hydroxychloroquine (8) Morbid obesity: Onset Date: Unknown Code(s): E66.01 - Morbid (severe) obesity due to excess calories Status: Chronic Assessment and Plan: * Recommend lifestyle changes to decrease Cardiovascular risk Plan Weaning O2, increasing diuresis Time Spent With Patient Time: 58 minutes Subjective Date/time seen: 08/12/24 09:15 Interval history: Creatinine stable. Weight down to 131.1kg. Net negative 3380 yesterday. Off oxygen but still with significant edema. Up on the side of the bed eating br eakfast Review of Systems Review of Systems: 12 systems were reviewed with pertinent positives and negatives per HPI. Except as documented in the HPI, all other systems were reviewed and are negative. All systems reviewed & are unremarkable except as noted in HPI and below Exam Narrative: CONSTITUTIONAL: Obese, female pt lying sitting on side of bed at this time in no acute distress. She has no acute dyspnea present. HENMT: Atraumatic and normocephalic. MMM and patent oropharynx without any exudate, edema or erythema. EYES: PERRLA, EOMs intact, Conjunctiva are clear NECK: Supple, FROM RESPIRATORY: Diminished in bases bilaterally posterior and faint crackles present. CARDIOVASCULAR: RRR, S1 and S2 present. No S3, S4, m,r,g,h or displacement of PMI. GI: Soft, NT, BS+x4, no guarding, rebound : Deferred SKIN: Intact, warm, dry, without lesion NEURO: Grossly intact without any focal abnormalities EXTREMITIES: Full AROM of all four extremities without deficit. Generalized edema, bilateral hands and 3+ pitting edema lower extremities. PSYCH: A&Ox4, normal affect. Objective Data Vital Signs Vital Signs: Vital Signs - 24 hr 08/11/24 12:00 08/11/24 12:00 08/11/24 12:30 Temperature Pulse Rate 80 Respiratory Rate Blood Pressure Pulse Oximetry 100 90 Oxygen Delivery Nasal Cannula Nasal Cannula Oxygen Flow Rate 2 1 08/11/24 13:00 08/11/24 14:21 08/11/24 16:13 Temperature Pulse Rate 89 77 Respiratory Rate 16 Blood Pressure 120/47 L Pulse Oximetry 97 100 Oxygen Delivery Nasal Cannula Oxygen Flow Rate 2 08/11/24 16:55 08/11/24 19:54 08/11/24 19:54 Temperature Pulse Rate 74 74 74 Respiratory Rate 20 20 Blood Pressure 116/66 Pulse Oximetry 100 100 Oxygen Delivery Nasal Cannula Oxygen Flow Rate 2 08/11/24 20:00 08/11/24 22:25 08/11/24 23:50 Temperature 98.2 F 97.0 F L Pulse Rate 85 77 81 Respiratory Rate 24 H 28 H 20 Blood Pressure 119/66 107/53 L Pulse Oximetry 96 94 93 Oxygen Delivery BiPAP Oxygen Flow Rate 08/12/24 00:00 08/12/24 02:15 08/12/24 04:00 Temperature Pulse Rate 81 73 Respiratory Rate Blood Pressure Pulse Oximetry Oxygen Delivery BiPAP Oxygen Flow Rate 08/12/24 04:00 08/12/24 08:00 08/12/24 08:15 Temperature 97.4 F L 97.8 F Pulse Rate 82 74 Respiratory Rate 18 24 H Blood Pressure 112/59 L 125/60 Pulse Oximetry 90 93 84 L Oxygen Delivery Nasal Cannula Oxygen Flow Rate 2 08/12/24 08:17 Temperature Pulse Rate Respiratory Rate Blood Pressure Pulse Oximetry 92 Oxygen Delivery Nasal Cannula Oxygen Flow Rate 3 Intake/Output Intake/Output: Intake & Output 08/09/24 08/10/24 08/11/24 08/12/24 23:59 23:59 23:59 23:59 Intake Total 2060 1390 920 440 Output Total 1700 3200 4300 200 Balance 360 -1810 -3380 240 Meds/Results Medications: Active Medications Generic Name Dose Route Start Last Admin Trade Name Freq PRN Reason Stop Dose Admin Acetaminophen 650 mg 08/07/24 16:28 Acetaminophen 325 Mg Tablet PO Q4H PRN Mild Pain (1-3) or Fever Hydrocodone Bitart/Acetaminophen 1 tab 08/07/24 16:28 Hydrocodone/Acetaminophen (*Crx) 5-325 Mg Tablet PO Q4H PRN Pain Rated 4-6 Cyanocobalamin 1,000 mcg 08/08/24 09:00 08/12/24 08:55 Cyanocobalamin 1,000 Mcg Tablet PO 1,000 mcg DAILY DELROY Administration Empagliflozin 10 mg 08/08/24 09:00 08/12/24 08:55 Empagliflozin 10 Mg Tablet PO 10 mg DAILY DELROY Administration Enoxaparin Sodium 40 mg 08/07/24 21:00 08/12/24 08:55 Enoxaparin 40 Mg/0.4 Ml Syringe SUB-Q 40 mg Q12HR DELROY Administration Furosemide 60 mg 08/10/24 21:00 08/12/24 08:54 Furosemide Inj 40 Mg/4 Ml Vial IV PUSH 60 mg Q12HR DELROY Administration Hydroxychloroquine Sulfate 200 mg 08/08/24 09:00 08/12/24 08:55 Hydroxychloroquine Sulfate 200 Mg Tablet PO 200 mg Q12HR DELROY Administration Ondansetron HCl 4 mg 08/07/24 16:28 Ondansetron Inj 4 Mg/2 Ml Vial IV PUSH Q4H PRN Nausea Potassium Chloride 40 meq 08/11/24 09:00 08/12/24 08:55 Potassium Chloride 20 Meq Er Tablet PO 40 meq DAILY DELROY Administration Spironolactone 25 mg 08/11/24 09:00 08/12/24 08:55 Spironolactone 25 Mg Tablet PO 25 mg QAM DELROY Administration Radiology Results: ITS Impressions Chest X-Ray 08/07/24 15:18 IMPRESSION: Mild interstitial edema versus artifact from crowding. Mild bibasilar plexus/scar. Chronic right hemidiaphragm elevation. Venous Doppler Study 08/07/24 17:15 IMPRESSION: Limited visualization of the lower extremity veins abdomen below the level of the knees as detailed above. No DVT detected in the adequately visualized veins. Abdomen Ultrasound 08/08/24 15:34 IMPRESSION: normal limited abdominal ultrasound. Labs Labs: Laboratory Results - last 24 hr 08/11/24 08/12/24 17:01 04:48 WBC 4.1 L RBC 5.02 Hgb 11.0 L Hct 41.5 MCV 82.7 MCH 21.9 L MCHC 26.5 L RDW 19.7 H Plt Count 172 MPV 11.2 H Immature Gran % (Auto) 0.2 Neut % (Auto) 69.5 Lymph % (Auto) 15.8 L Benson % (Auto) 9.1 H Eos % (Auto) 4.9 H Baso % (Auto) 0.5 Lymph # (Auto) 0.64 L Benson # (Auto) 0.4 Eos # (Auto) 0.2 Baso # (Auto) 0.0 Abs Immat Gran (auto) 0.01 Absolute Neuts (auto) 2.8 Absolute Nucleated RBC 0.000 Nucleated RBC % 0.0 Platelet Estimate Adequate % Immature Plt Fraction 5.8 Hypochromasia 1+ Anisocytosis 1+ Schistocytes None seen Sodium 140 140 Potassium 4.4 4.2 Chloride 94 L 95 L Carbon Dioxide > 40 H > 40 H Anion Gap BUN 28 H 24 H Creatinine 0.80 0.80 Estim Creat Clear Calc 96 94 Estimated GFR > 60 > 60 Glucose 88 87 Calcium 8.2 L 8.3 L Phosphorus 3.8 3.5 Magnesium 2.1 2.1 Total Bilirubin 1.3 Direct Bilirubin 0.0 AST 48 H ALT 83 H Alkaline Phosphatase 100 Total Protein 7.0 Albumin 3.1 L Quality VTE Prophylaxis VTE prophylaxis: pharmacologic ordered Hospitalist MIPS Advance Care Plan I have confirmed that the patient's Advanced Care Plan is present, code status is documented, or surrogate decision maker is listed in patient medical record.: Yes Medication Reconciliation I have utilized all available resources to obtain, update and review the patients current medications (includes all prescriptions, OTC, herbals, cannabis, and nutritional supplements).: Yes
[2024-08-12] MEDS: FUROSEMIDE INJ 40 MG/4 ML VIAL IV PUSH (20:29)
[2024-08-13] VITALS (12 sets, daily range): BP systolic 98–146; BP diastolic 40–84; PULSE 82–109; RESP 16–24; TEMP 36.1–37.1; O2SAT 73–98
[2024-08-13 05:48] LABS: Eosinophils Absolute Auto 0.2 K/mm3 (0-0.3); Eosinophils Percent Auto 4.9 % (0-4.4); Hematocrit 41.2 % (37.0-47.0); Hemoglobin 11.2 g/dL (12.0-15.0); Immature Platelet Fraction Pct 5.5 % (0.9-11.2); Lymphocytes Absolute Auto 0.65 K/mm3 (0.9-3.2); Lymphocytes Percent Auto 21.3 % (18.3-44.2); Mean Corpuscular HGB Conc 27.2 g/dl (32-36); Mean Corpuscular Hemoglobin 22.1 pg (26-34); Mean Corpuscular Volume 81.3 fl (80-100); Mean Platelet Volume 11.7 fl (7.4-10.4); Monocytes Absolute Auto 0.3 K/mm3 (0.1-0.6); Monocytes Percent Auto 8.5 % (2.6-8.5); Neutrophils Percent Auto 64.3 % (45.5-73.1); Platelet Count Result 158 k/mm3 (150-375); Red Blood Count 5.07 M/mm3 (4.2-5.4); Red Cell Distribution Width 19.5 % (11.5-14.5); White Blood Count 3.1 K/mm3 (4.5-10.0)
[2024-08-13 06:05] LABS: Potassium 4.2 mmol/L (3.4-5.0)
[2024-08-13 06:07] LABS: Alanine Aminotransferase 70 U/L (6-35); Albumin Level 3.2 g/dL (3.5-5.1); Alkaline Phosphatase 93 U/L (38-126); Aspartate Amino Transferase 50 U/L (14-36); Bilirubin,Total 1.3 mg/dL (0.2-1.3); Blood Urea Nitrogen 25 mg/dL (7-17); Calcium 8.4 mg/dL (8.4-10.2); Carbon Dioxide > 40 mmol/L (22-30); Chloride 96 mmol/L (98-107); Estimated CRCL calculation 93 ml/min; Estimated Glomerular Filt Rate > 60; Glucose 87 mg/dL (65-110); Magnesium 2.2 mg/dL (1.6-2.3); Sodium 138 mmol/L (137-145)
[2024-08-13 06:34] LABS: Anisocytosis 2+; Hypochromasia 1+; Platelet Estimate Adequate (Adequate); Polychromasia 1+; Schistocytes None Seen; Stomatocytes 1+
[2024-08-13] MEDS: CYANOCOBALAMIN 1,000 MCG TABLET 1000 MCG PO (08:08)
[2024-08-13] MEDS: HYDROXYCHLOROQUINE SULFATE 200 MG TABLET PO ×2 (08:08→20:23)
[2024-08-13] MEDS: SPIRONOLACTONE 25 MG TABLET PO (08:08)
[2024-08-13] MEDS: EMPAGLIFLOZIN 10 MG TABLET PO (08:09)
[2024-08-13] MEDS: FUROSEMIDE INJ 40 MG/4 ML VIAL IV PUSH ×2 (08:10→20:23)
[2024-08-13] MEDS: POTASSIUM CHLORIDE 20 MEQ ER TABLET PO (08:10)
[2024-08-13] MEDS: ENOXAPARIN 40 MG/0.4 ML SYRINGE SUB-Q ×2 (08:10→20:23)
--- NOTE | 2024-08-13 09:04 | P.PNCA_ITS ---
Progress Note: A&P Assessment and Plan (1) CHF (congestive heart failure): Qualifiers: Heart failure chronicity: unspecified Heart failure type: diastolic Qualified Code(s): I50.30 - Unspecified diastolic (congestive) heart failure Code(s): I50.9 - Heart failure, unspecified Status: Acute Plan Acute on chronic diastolic heart failure Lymphedema Morbid obesity Obstructive sleep apnea Hypertension Systemic lupus erythematosus - Continue Lasix has been increased to 60mg IV b.i.d - Strict I/Os to be monitored - Difficult to assess intravascular volume due to body habitus. Discussed with her and her mother regarding a RHC vs giving her a small dose of metolazone impairment of renal function. They agreed to give her metolazone. 243Will give one dose of metolazone 2.5 mg and monitor UO and renal function. - Weight loss - would recommend GLP-1 - Will add Entresto 24-26mg b.i.d. to her regimen once she has been transitioned back to oral furosemide Subjective Date/time seen: 08/13/24 09:04 Interval history: No acute events overnight Feels better -1450 ml (08/10) - 3380 ml (08/11) - 1810 (08/12) Exam Narrative: Morbidly obese female sitting on the edge of the bed. Comfortable and in no distress Const: General: comfortable, no acute distress, alert and awake Orientation/consciousness: patient oriented x3 HENMT: Head: normal to inspection Eyes: General: appearance normal, both eyes and all related structures Pupils: Equal, round and reactive pupils present Neck: Neck: normal visual inspection and supple Carotids: normal carotid upstroke Resp: Effort & Inspection: normal respiratory effort Auscultation: not clear to auscultation bilaterally, crackles and diminished lung sounds Cardio: Rate: regular rate Rhythm: regular rhythm Heart sounds: S1 normal heart sound present, S2 normal heart sound present and no murmurs GI: Auscultation: normal bowel sounds Skin: General skin exam: normal color Neuro: General: patient oriented x3 Cranial nerves: Yes Equal, round and reactive pupils present Extrem: General: edema and pedal edema Psych: Appearance: grossly normal Mental Status: mental status grossly normal Objective Data Vital Signs Vital Signs: Vital Signs - 24 hr 08/12/24 12:00 08/12/24 13:00 08/12/24 16:00 Temperature 36.7 C Pulse Rate 84 90 97 Respiratory Rate 22 H Blood Pressure 102/52 L Pulse Oximetry 100 Oxygen Delivery Oxygen Flow Rate Fraction of Inspired Oxygen 08/12/24 17:00 08/12/24 20:00 08/12/24 20:00 Temperature 36.6 C 36.4 C Pulse Rate 105 H 104 H Respiratory Rate 22 H 16 Blood Pressure 103/66 110/58 L Pulse Oximetry 90 91 91 Oxygen Delivery Nasal Cannula Oxygen Flow Rate 2 Fraction of Inspired Oxygen 08/12/24 20:00 08/13/24 00:00 08/13/24 00:00 Temperature 36.7 C Pulse Rate 112 H 100 104 H Respiratory Rate 16 Blood Pressure 105/67 Pulse Oximetry 94 Oxygen Delivery Oxygen Flow Rate Fraction of Inspired Oxygen 08/13/24 00:08 08/13/24 00:09 08/13/24 00:58 Temperature Pulse Rate Respiratory Rate Blood Pressure Pulse Oximetry 73 L 93 73 L Oxygen Delivery Room Air Nasal Cannula Room Air Oxygen Flow Rate 2 Fraction of Inspired Oxygen 08/13/24 00:58 08/13/24 04:00 08/13/24 04:00 Temperature 36.1 C L Pulse Rate 91 92 Respiratory Rate 20 Blood Pressure 122/58 L Pulse Oximetry 93 92 Oxygen Delivery Nasal Cannula Oxygen Flow Rate 1 Fraction of Inspired Oxygen 08/13/24 07:42 08/13/24 08:00 08/13/24 08:15 Temperature 36.7 C Pulse Rate 87 Respiratory Rate 16 Blood Pressure 126/70 Pulse Oximetry 92 91 93 Oxygen Delivery Nasal Cannula Nasal Cannula Oxygen Flow Rate 1 1 Fraction of Inspired Oxygen 24 Intake/Output Intake/Output: Intake & Output 08/10/24 08/11/24 08/12/24 08/13/24 23:59 23:59 23:59 23:59 Intake Total 8092 397 7348 200 Output Total 3200 4300 2600 400 Balance -1810 -3380 -1450 -200 Meds/Results Medications: Active Medications Generic Name Dose Route Start Last Admin Trade Name Freq PRN Reason Stop Dose Admin Acetaminophen 650 mg 08/07/24 16:28 Acetaminophen 325 Mg Tablet PO Q4H PRN Mild Pain (1-3) or Fever Hydrocodone Bitart/Acetaminophen 1 tab 08/07/24 16:28 Hydrocodone/Acetaminophen (*Crx) 5-325 Mg Tablet PO Q4H PRN Pain Rated 4-6 Cyanocobalamin 1,000 mcg 08/08/24 09:00 08/13/24 08:08 Cyanocobalamin 1,000 Mcg Tablet PO 1,000 mcg DAILY DELROY Administration Empagliflozin 10 mg 08/08/24 09:00 08/13/24 08:09 Empagliflozin 10 Mg Tablet PO 10 mg DAILY DELROY Administration Enoxaparin Sodium 40 mg 08/07/24 21:00 08/13/24 08:10 Enoxaparin 40 Mg/0.4 Ml Syringe SUB-Q 40 mg Q12HR DELROY Administration Furosemide 40 mg 08/12/24 21:00 08/13/24 08:10 Furosemide Inj 40 Mg/4 Ml Vial IV PUSH 40 mg Q12HR DELORY Administration Hydroxychloroquine Sulfate 200 mg 08/08/24 09:00 08/13/24 08:08 Hydroxychloroquine Sulfate 200 Mg Tablet PO 200 mg Q12HR DELROY Administration Ondansetron HCl 4 mg 08/07/24 16:28 Ondansetron Inj 4 Mg/2 Ml Vial IV PUSH Q4H PRN Nausea Potassium Chloride 20 meq 08/13/24 09:00 08/13/24 08:10 Potassium Chloride 20 Meq Er Tablet PO 20 meq DAILY DELROY Administration Spironolactone 25 mg 08/11/24 09:00 08/13/24 08:08 Spironolactone 25 Mg Tablet PO 25 mg QAM DELROY Administration Radiology Results: ITS Impressions Chest X-Ray 08/07/24 15:18 IMPRESSION: Mild interstitial edema versus artifact from crowding. Mild bibasilar plexus/scar. Chronic right hemidiaphragm elevation. Venous Doppler Study 08/07/24 17:15 IMPRESSION: Limited visualization of the lower extremity veins abdomen below the level of the knees as detailed above. No DVT detected in the adequately visualized veins. Abdomen Ultrasound 08/08/24 15:34 IMPRESSION: normal limited abdominal ultrasound. Labs Labs: Laboratory Results - last 24 hr 08/12/24 08/13/24 04:48 05:16 WBC 3.1 L RBC 5.07 Hgb 11.2 L Hct 41.2 MCV 81.3 MCH 22.1 L MCHC 27.2 L RDW 19.5 H Plt Count 158 MPV 11.7 H Immature Gran % (Auto) 0.0 Neut % (Auto) 64.3 Lymph % (Auto) 21.3 Rowan % (Auto) 8.5 Eos % (Auto) 4.9 H Baso % (Auto) 1.0 Lymph # (Auto) 0.65 L Rowan # (Auto) 0.3 Eos # (Auto) 0.2 Baso # (Auto) 0.0 Abs Immat Gran (auto) 0.00 Absolute Neuts (auto) 2.0 Absolute Nucleated RBC 0.000 Nucleated RBC % 0.0 Platelet Estimate Adequate Adequate % Immature Plt Fraction 5.5 Polychromasia 1+ Hypochromasia 1+ 1+ Anisocytosis 1+ 2+ Stomatocytes 1+ Schistocytes None seen None seen Sodium 138 Potassium 4.2 Chloride 96 L Carbon Dioxide > 40 H Anion Gap BUN 25 H Creatinine 0.80 Estim Creat Clear Calc 93 Estimated GFR > 60 Glucose 87 Calcium 8.4 Magnesium 2.2 Total Bilirubin 1.3 Direct Bilirubin 0.0 AST 50 H ALT 70 H Alkaline Phosphatase 93 Total Protein 7.0 Albumin 3.2 L
[2024-08-13] MEDS: metOLazone 2.5 MG TABLET PO (11:39)
--- NOTE | 2024-08-13 16:45 | P.PNIM_ITS ---
Progress Note: A&P Assessment and Plan (1) CHF (congestive heart failure): Qualifiers: Heart failure chronicity: unspecified Heart failure type: diastolic Qualified Code(s): I50.30 - Unspecified diastolic (congestive) heart failure Code(s): I50.9 - Heart failure, unspecified Status: Acute Assessment and Plan: Previous ECHO from February shows EF of 55-60% and some diastolic dysfunction. Currently with evidence of Volume overload per CXR and Physical Exam. 08/10 TTE: 1. Complete two-dimensional, color flow and Doppler transthoracic echocardiogram is performed. 2. Left ventricular chamber dimension is normal. 3. Left ventricular wall thickness is normal. 4. Left ventricular systolic function is mildly reduced with a visually estimated ejection fraction of 50-55%. 5. Left ventricular septal wall motion shows abnormal septal motion due to RV pressure and volume load. 6. Right ventricular chamber dimension is enlarged. 7. Right ventricular systolic function is reduced. 8. Right atrial chamber dimension is enlarged. 9. Possible Patent foramen ovale (PFO) on color flow imaging. 10. There is moderate tricuspid valve regurgitation. 11. Mild pulmonary hypertension, estimated pulmonary arterial systolic pressure is 52 mmHg. 12. Dilated inferior vena cava with <50% collapse upon inspiration consistent with elevated right atrial pressure, 15 mmHg. PLAN * Continue Lasix IV. Received 40-40-60 08/10, 60mg BID 08/11. 60/40 08/13, 40/40 08/13. Creatinine and electrolytes stable. Can likely switch to PO soon * BMP, Mag in AM * Cardiology consulted, appreciate recommendations: added metolazone 2.5mg daily 08/13. Plan to start entresto when oral lasix resumed * Monitor labs and VS and trend. * Weight improving with higher dose of lasix and fluid restriction: 130.9 kg on 08/07/24, 137.5 kg 08/09, 138.1kg 08/10. 136.2kg 08/11, 131.1kg 08/12, 129.5kg 08/13 * Fluid restriction 1000ml per day * I&O * Continuing jardiance (2) Acute hypoxic respiratory failure: Code(s): J96.01 - Acute respiratory failure with hypoxia Status: Acute Assessment and Plan: Not using oxygen at home Continue Supplemental oxygen. * Continue supplemental oxygen. * Home oxygen determination ordered. Pt will need it for her BiPap that polysomnography recommends bleed in of 4L but weaning O2 so reasses. Continue BiPap with settings of 18/8;R23;3L. Will need for home * Weaned to RA-1L yesterday and today. * Monitor labs and VS. * Continue treatment of heart failure as noted (3) Transaminitis: Code(s): R74.01 - Elevation of levels of liver transaminase levels Status: Acute Assessment and Plan: LFT's elevated on admission. AST/ALT 151/189, Bilirubin 1.4 Suspect elevated 2/2 heart failure, LFT's improving. No nausea or abdominal pain * Improved today: 73/134/Bili 1.3 * 12/10 US RUQ normal (4) Lymphedema of both lower extremities: Code(s): I89.0 - Lymphedema, not elsewhere classified Status: Acute Assessment and Plan: Likely 2/2 fluid overload. Patient reports no edema earlier this month * NORMAN wraps are in place bilaterally and edema is slightly improved as compared to yesterday. * Continue NORMAN wraps and elevation of extremities when in bed * Diuresis as noted (5) STAS (obstructive sleep apnea): Code(s): G47.33 - Obstructive sleep apnea (adult) (pediatric) Status: Acute Assessment and Plan: Obesity contributing or causing STAS and contributes to other medical issues. Untreated STAS also exacerbating heart failure. Tolerating Bipap * Continue BiPap, started in the hospital. Settings of 18/8 w/3L oxygen bled in. * Order placed to set up home BiPap based on Polysomnography recs. * Pt again tolerated BiPap well last evening. She is still awaiting home set up. * Ordered apnea link for [facility] to evaluate since weaning oxygen (6) Essential (primary) hypertension: Onset Date: Unknown Code(s): I10 - Essential (primary) hypertension Status: Acute Assessment and Plan: Blood pressure low normal, tolerating diuresis. Blood pressure ranging 104-130/53-73 * Diuresing as noted (7) SLE (systemic lupus erythematosus): Onset Date: Unknown Qualifiers: Systemic lupus erythematosus type: unspecified Systemic lupus erythematosus organ involvement: unspecified Qualified Code(s): M32.9 - Systemic lupus erythematosus, unspecified Code(s): M32.9 - Systemic lupus erythematosus, unspecified Status: Chronic Assessment and Plan: * Continue Hydroxychloroquine (8) Morbid obesity: Onset Date: Unknown Code(s): E66.01 - Morbid (severe) obesity due to excess calories Status: Chronic Assessment and Plan: * Recommend lifestyle changes to decrease Cardiovascular risk Plan Weaning O2, increasing diuresis Time Spent With Patient Time: 58 minutes Subjective Date/time seen: 08/13/24 11:15 Interval history: Weaning oxygen. Still on 1L today. Creatinine stable. Weight down. Edema improving Review of Systems Review of Systems: 12 systems were reviewed with pertinent positives and negatives per HPI. Except as documented in the HPI, all other systems were reviewed and are negative. All systems reviewed & are unremarkable except as noted in HPI and below Exam Narrative: CONSTITUTIONAL: Obese, female pt lying sitting on side of bed at this time in no acute distress. She has no acute dyspnea present. HENMT: Atraumatic and normocephalic. MMM and patent oropharynx without any exudate, edema or erythema. EYES: PERRLA, EOMs intact, Conjunctiva are clear NECK: Supple, FROM RESPIRATORY: Diminished in bases bilaterally posterior and faint crackles present. CARDIOVASCULAR: RRR, S1 and S2 present. No S3, S4, m,r,g,h or displacement of PMI. GI: Soft, NT, BS+x4, no guarding, rebound : Deferred SKIN: Intact, warm, dry, without lesion NEURO: Grossly intact without any focal abnormalities EXTREMITIES: Full AROM of all four extremities without deficit. Generalized edema, bilateral hands and 1-2+ pitting edema lower extremities. PSYCH: A&Ox4, normal affect. Objective Data Vital Signs Vital Signs: Vital Signs - 24 hr 08/12/24 17:00 08/12/24 20:00 08/12/24 20:00 Temperature 97.8 F 97.6 F Pulse Rate 105 H 104 H Respiratory Rate 22 H 16 Blood Pressure 103/66 110/58 L Pulse Oximetry 90 91 91 Oxygen Delivery Nasal Cannula Oxygen Flow Rate 2 Fraction of Inspired Oxygen 08/12/24 20:00 08/13/24 00:00 08/13/24 00:00 Temperature 98.1 F Pulse Rate 112 H 100 104 H Respiratory Rate 16 Blood Pressure 105/67 Pulse Oximetry 94 Oxygen Delivery Oxygen Flow Rate Fraction of Inspired Oxygen 08/13/24 00:08 08/13/24 00:09 08/13/24 00:58 Temperature Pulse Rate Respiratory Rate Blood Pressure Pulse Oximetry 73 L 93 73 L Oxygen Delivery Room Air Nasal Cannula Room Air Oxygen Flow Rate 2 Fraction of Inspired Oxygen 08/13/24 00:58 08/13/24 04:00 08/13/24 04:00 Temperature 97.0 F L Pulse Rate 91 92 Respiratory Rate 20 Blood Pressure 122/58 L Pulse Oximetry 93 92 Oxygen Delivery Nasal Cannula Oxygen Flow Rate 1 Fraction of Inspired Oxygen 08/13/24 07:42 08/13/24 08:00 08/13/24 08:00 Temperature 98.1 F Pulse Rate 87 82 Respiratory Rate 16 Blood Pressure 126/70 Pulse Oximetry 92 91 Oxygen Delivery Nasal Cannula Oxygen Flow Rate 1 Fraction of Inspired Oxygen 08/13/24 08:15 08/13/24 12:00 08/13/24 13:00 Temperature 97.6 F Pulse Rate 94 109 H Respiratory Rate 22 H Blood Pressure 98/40 L Pulse Oximetry 93 93 Oxygen Delivery Nasal Cannula Oxygen Flow Rate 1 Fraction of Inspired Oxygen Intake/Output Intake/Output: Intake & Output 08/10/24 08/11/24 08/12/24 08/13/24 23:59 23:59 23:59 23:59 Intake Total 3188 907 2828 780 Output Total 3200 4300 2600 900 Balance -1810 -3380 -1450 -120 Meds/Results Medications: Active Medications Generic Name Dose Route Start Last Admin Trade Name Freq PRN Reason Stop Dose Admin Acetaminophen 650 mg 08/07/24 16:28 Acetaminophen 325 Mg Tablet PO Q4H PRN Mild Pain (1-3) or Fever Hydrocodone Bitart/Acetaminophen 1 tab 08/07/24 16:28 Hydrocodone/Acetaminophen (*Crx) 5-325 Mg Tablet PO Q4H PRN Pain Rated 4-6 Cyanocobalamin 1,000 mcg 08/08/24 09:00 08/13/24 08:08 Cyanocobalamin 1,000 Mcg Tablet PO 1,000 mcg DAILY DELROY Administration Empagliflozin 10 mg 08/08/24 09:00 08/13/24 08:09 Empagliflozin 10 Mg Tablet PO 10 mg DAILY DELROY Administration Enoxaparin Sodium 40 mg 08/07/24 21:00 08/13/24 08:10 Enoxaparin 40 Mg/0.4 Ml Syringe SUB-Q 40 mg Q12HR EDLROY Administration Furosemide 40 mg 08/12/24 21:00 08/13/24 08:10 Furosemide Inj 40 Mg/4 Ml Vial IV PUSH 40 mg Q12HR DELROY Administration Hydroxychloroquine Sulfate 200 mg 08/08/24 09:00 08/13/24 08:08 Hydroxychloroquine Sulfate 200 Mg Tablet PO 200 mg Q12HR DELROY Administration Ondansetron HCl 4 mg 08/07/24 16:28 Ondansetron Inj 4 Mg/2 Ml Vial IV PUSH Q4H PRN Nausea Potassium Chloride 20 meq 08/13/24 09:00 08/13/24 08:10 Potassium Chloride 20 Meq Er Tablet PO 20 meq DAILY DELROY Administration Spironolactone 25 mg 08/11/24 09:00 08/13/24 08:08 Spironolactone 25 Mg Tablet PO 25 mg QAM DELROY Administration Radiology Results: ITS Impressions Chest X-Ray 08/07/24 15:18 IMPRESSION: Mild interstitial edema versus artifact from crowding. Mild bibasilar plexus/scar. Chronic right hemidiaphragm elevation. Venous Doppler Study 08/07/24 17:15 IMPRESSION: Limited visualization of the lower extremity veins abdomen below the level of the knees as detailed above. No DVT detected in the adequately visualized veins. Abdomen Ultrasound 08/08/24 15:34 IMPRESSION: normal limited abdominal ultrasound. Labs Labs: Laboratory Results - last 24 hr 08/13/24 05:16 WBC 3.1 L RBC 5.07 Hgb 11.2 L Hct 41.2 MCV 81.3 MCH 22.1 L MCHC 27.2 L RDW 19.5 H Plt Count 158 MPV 11.7 H Immature Gran % (Auto) 0.0 Neut % (Auto) 64.3 Lymph % (Auto) 21.3 Metcalfe % (Auto) 8.5 Eos % (Auto) 4.9 H Baso % (Auto) 1.0 Lymph # (Auto) 0.65 L Metcalfe # (Auto) 0.3 Eos # (Auto) 0.2 Baso # (Auto) 0.0 Abs Immat Gran (auto) 0.00 Absolute Neuts (auto) 2.0 Absolute Nucleated RBC 0.000 Nucleated RBC % 0.0 Platelet Estimate Adequate % Immature Plt Fraction 5.5 Polychromasia 1+ Hypochromasia 1+ Anisocytosis 2+ Stomatocytes 1+ Schistocytes None seen Sodium 138 Potassium 4.2 Chloride 96 L Carbon Dioxide > 40 H Anion Gap BUN 25 H Creatinine 0.80 Estim Creat Clear Calc 93 Estimated GFR > 60 Glucose 87 Calcium 8.4 Magnesium 2.2 Total Bilirubin 1.3 Direct Bilirubin 0.0 AST 50 H ALT 70 H Alkaline Phosphatase 93 Total Protein 7.0 Albumin 3.2 L Quality VTE Prophylaxis VTE prophylaxis: pharmacologic ordered
[2024-08-14] VITALS (16 sets, daily range): BP systolic 98–140; BP diastolic 34–82; PULSE 71–96; RESP 18–35; TEMP 36.4–36.7; O2SAT 90–96
[2024-08-14 07:19] LABS: Blood Urea Nitrogen 21 mg/dL (7-17); Carbon Dioxide > 40 mmol/L (22-30); Chloride 94 mmol/L (98-107); Estimated CRCL calculation 82 ml/min; Estimated Glomerular Filt Rate > 60; Glucose 88 mg/dL (65-110); Magnesium 2.2 mg/dL (1.6-2.3); Potassium 3.7 mmol/L (3.4-5.0); Sodium 137 mmol/L (137-145)
--- NOTE | 2024-08-14 07:25 | P.PNIM_ITS ---
Progress Note: A&P Assessment and Plan (1) CHF (congestive heart failure): Qualifiers: Heart failure chronicity: unspecified Heart failure type: diastolic Qualified Code(s): I50.30 - Unspecified diastolic (congestive) heart failure Code(s): I50.9 - Heart failure, unspecified Status: Acute Assessment and Plan: Previous ECHO from February shows EF of 55-60% and some diastolic dysfunction. Currently with evidence of Volume overload per CXR and Physical Exam. 08/10 TTE: 1. Complete two-dimensional, color flow and Doppler transthoracic echocardiogram is performed. 2. Left ventricular chamber dimension is normal. 3. Left ventricular wall thickness is normal. 4. Left ventricular systolic function is mildly reduced with a visually estimated ejection fraction of 50-55%. 5. Left ventricular septal wall motion shows abnormal septal motion due to RV pressure and volume load. 6. Right ventricular chamber dimension is enlarged. 7. Right ventricular systolic function is reduced. 8. Right atrial chamber dimension is enlarged. 9. Possible Patent foramen ovale (PFO) on color flow imaging. 10. There is moderate tricuspid valve regurgitation. 11. Mild pulmonary hypertension, estimated pulmonary arterial systolic pressure is 52 mmHg. 12. Dilated inferior vena cava with <50% collapse upon inspiration consistent with elevated right atrial pressure, 15 mmHg. PLAN * Continue Lasix IV. Received 40-40-60 08/10, 60mg BID 08/11. 60/40 08/13, 40/40 08/13. Creatinine and electrolytes stable. Can likely switch to PO soon * BMP, Mag in AM * Cardiology consulted, appreciate recommendations: added metolazone 2.5mg daily 08/13. Plan to start entresto when oral lasix resumed * Monitor labs and VS and trend. * Weight improving with higher dose of lasix and fluid restriction: 130.9 kg on 08/07/24, 137.5 kg 08/09, 138.1kg 08/10. 136.2kg 08/11, 131.1kg 08/12, 129.5kg 08/13 * Fluid restriction 1000ml per day * I&O * Continuing jardiance (2) Acute hypoxic respiratory failure: Code(s): J96.01 - Acute respiratory failure with hypoxia Status: Acute Assessment and Plan: Not using oxygen at home Continue Supplemental oxygen. * Continue supplemental oxygen. * Home oxygen determination ordered. Pt will need it for her BiPap that polysomnography recommends bleed in of 4L but weaning O2 so reasses. Continue BiPap with settings of 18/8;R23;3L. Will need for home * Weaned to RA-1L yesterday and today. * Monitor labs and VS. * Continue treatment of heart failure as noted (3) Transaminitis: Code(s): R74.01 - Elevation of levels of liver transaminase levels Status: Acute Assessment and Plan: LFT's elevated on admission. AST/ALT 151/189, Bilirubin 1.4 Suspect elevated 2/2 heart failure, LFT's improving. No nausea or abdominal pain * Improved today: 73/134/Bili 1.3 * 12/10 US RUQ normal (4) Lymphedema of both lower extremities: Code(s): I89.0 - Lymphedema, not elsewhere classified Status: Acute Assessment and Plan: Likely 2/2 fluid overload. Patient reports no edema earlier this month * NORMAN wraps are in place bilaterally and edema is slightly improved as compared to yesterday. * Continue NORMAN wraps and elevation of extremities when in bed * Diuresis as noted (5) STAS (obstructive sleep apnea): Code(s): G47.33 - Obstructive sleep apnea (adult) (pediatric) Status: Acute Assessment and Plan: Obesity contributing or causing STAS and contributes to other medical issues. Untreated STAS also exacerbating heart failure. Tolerating Bipap * Continue BiPap, started in the hospital. Settings of 18/8 w/3L oxygen bled in. * Order placed to set up home BiPap based on Polysomnography recs. * Pt again tolerated BiPap well last evening. She is still awaiting home set up. * Ordered apnea link for [facility] to evaluate since weaning oxygen (6) Essential (primary) hypertension: Onset Date: Unknown Code(s): I10 - Essential (primary) hypertension Status: Acute Assessment and Plan: Blood pressure low normal, tolerating diuresis. Blood pressure ranging 104-130/53-73 * Diuresing as noted (7) SLE (systemic lupus erythematosus): Onset Date: Unknown Qualifiers: Systemic lupus erythematosus organ involvement: unspecified Systemic lupus erythematosus type: unspecified Qualified Code(s): M32.9 - Systemic lupus erythematosus, unspecified Code(s): M32.9 - Systemic lupus erythematosus, unspecified Status: Chronic Assessment and Plan: * Continue Hydroxychloroquine (8) Morbid obesity: Onset Date: Unknown Code(s): E66.01 - Morbid (severe) obesity due to excess calories Status: Chronic Assessment and Plan: * Recommend lifestyle changes to decrease Cardiovascular risk Plan Weaning O2, increasing diuresis Time Spent With Patient Time with patient: Greater than 35 minutes Subjective Date/time seen: 08/14/24 07:25 Interval history: 49-year-old female with a past medical history of morbid obesity BMI greater than 60, chronic hypercarbic respiratory failure (obesity hypoventilation likely), severe restrictive ventilatory defect chronic venous stasis and lymphedema, essential hypertension, obstructive sleep apnea, lupus, diastolic dysfunction, moderate tricuspid regurgitation and elevated right atrial pressures who presented to the ER with shortness of breath and CHF. Weaning oxygen. Still on 1L today. Creatinine stable. Weight down. Continue IV Lasix today Review of Systems Review of Systems: 12 systems were reviewed with pertinent positives and negatives per HPI. Except as documented in the HPI, all other systems were reviewed and are negative. All systems reviewed & are unremarkable except as noted in HPI and below Exam Narrative: CONSTITUTIONAL: Obese, female pt lying sitting on side of bed at this time in no acute distress. She has no acute dyspnea present. HENMT: Atraumatic and normocephalic. MMM and patent oropharynx without any exudate, edema or erythema. EYES: PERRLA, EOMs intact, Conjunctiva are clear NECK: Supple, FROM RESPIRATORY: Diminished CARDIOVASCULAR: RRR, S1 and S2 present. No S3, S4, m,r,g,h or displacement of PMI. GI: Soft, NT, BS+x4, no guarding, rebound : Deferred SKIN: Intact, warm, dry, without lesion NEURO: Grossly intact without any focal abnormalities EXTREMITIES: Full AROM of all four extremities without deficit. Generalized edema, bilateral hands and 3+ pitting edema lower extremities. PSYCH: A&Ox4, normal affect. Const: General: comfortable and no acute distress Other: Morbidly obese, no acute distress, appears stated age HENMT: Other: Mucous membranes are tacky, no oral pharyngeal erythema, exam limited due to BiPAP, head is normocephalic atraumatic Eyes: Pupils: Equal, round and reactive pupils present Other: Pupils are equal and reactive, no scleral icterus, no conjunctival pallor Neck: Neck: supple Other: Large neck circumference, supple, nontender Resp: Effort & Inspection: normal respiratory effort Auscultation: no crackles Other: Slightly labored respirations Cardio: Rate: regular rate Rhythm: regular rhythm Heart sounds: no gallops, no murmurs and no rubs Other: Regular rate, regular rhythm, 2+ bilateral radial pulse, 2+ bilateral pedal pulses, difficult to assess for JVD due to body habitus GI: Other: Obese, nontender, positive bowel sounds Skin: Other: Mild Chronic venous stasis changes bilateral lower extremities left greater than right, no jaundice Neuro: Cranial nerves: Yes Equal, round and reactive pupils present Other: Alert orient x4, speech is clear, no facial asymmetry, no localizing neurologic deficits noted during the course of conversation Extrem: Other: Lymphedema with underlying pitting edema, improved. Resolved edema above the knees Psych: Other: Appropriate mood and affect, pleasant and cooperative, judgment and insight intact Objective Data Vital Signs Vital Signs: Vital Signs - 24 hr 08/13/24 07:42 08/13/24 08:00 08/13/24 08:00 Temperature 98.1 F Pulse Rate 87 82 Respiratory Rate 16 Blood Pressure 126/70 Pulse Oximetry 92 91 Oxygen Delivery Nasal Cannula Oxygen Flow Rate 1 Fraction of Inspired Oxygen 08/13/24 08:15 08/13/24 12:00 08/13/24 13:00 Temperature 97.6 F Pulse Rate 94 109 H Respiratory Rate 22 H Blood Pressure 98/40 L Pulse Oximetry 93 93 Oxygen Delivery Nasal Cannula Oxygen Flow Rate 1 Fraction of Inspired Oxygen 08/13/24 16:00 08/13/24 16:00 08/13/24 20:00 Temperature 98.7 F 97.7 F Pulse Rate 84 92 94 Respiratory Rate 24 H 18 Blood Pressure 146/84 H 125/67 Pulse Oximetry 98 93 Oxygen Delivery Oxygen Flow Rate Fraction of Inspired Oxygen 08/13/24 20:00 08/14/24 00:00 08/14/24 00:00 Temperature 97.6 F Pulse Rate 88 96 79 Respiratory Rate 18 Blood Pressure 140/34 L Pulse Oximetry 90 Oxygen Delivery Oxygen Flow Rate Fraction of Inspired Oxygen 08/14/24 01:15 08/14/24 03:08 08/14/24 04:00 Temperature 98.0 F Pulse Rate 86 Respiratory Rate 21 H 18 Blood Pressure 132/76 Pulse Oximetry 93 91 Oxygen Delivery BiPAP BiPAP Oxygen Flow Rate 1 Fraction of Inspired Oxygen 08/14/24 04:00 08/14/24 06:07 Temperature 98.1 F Pulse Rate 77 86 Respiratory Rate 18 Blood Pressure 121/69 Pulse Oximetry 91 Oxygen Delivery Oxygen Flow Rate Fraction of Inspired Oxygen Intake/Output Intake/Output: Intake & Output 08/11/24 08/12/24 08/13/24 08/14/24 23:59 23:59 23:59 23:59 Intake Total 920 1150 900 Output Total 4300 2600 3200 600 Balance -3380 -1450 -2300 -600 Meds/Results Medications: Active Medications Generic Name Dose Route Start Last Admin Trade Name Freq PRN Reason Stop Dose Admin Acetaminophen 650 mg 08/07/24 16:28 Acetaminophen 325 Mg Tablet PO Q4H PRN Mild Pain (1-3) or Fever Hydrocodone Bitart/Acetaminophen 1 tab 08/07/24 16:28 Hydrocodone/Acetaminophen (*Crx) 5-325 Mg Tablet PO Q4H PRN Pain Rated 4-6 Cyanocobalamin 1,000 mcg 08/08/24 09:00 08/13/24 08:08 Cyanocobalamin 1,000 Mcg Tablet PO 1,000 mcg DAILY DELROY Administration Empagliflozin 10 mg 08/08/24 09:00 08/13/24 08:09 Empagliflozin 10 Mg Tablet PO 10 mg DAILY DELROY Administration Enoxaparin Sodium 40 mg 08/07/24 21:00 08/13/24 20:23 Enoxaparin 40 Mg/0.4 Ml Syringe SUB-Q 40 mg Q12HR DELROY Administration Furosemide 40 mg 08/12/24 21:00 08/13/24 20:23 Furosemide Inj 40 Mg/4 Ml Vial IV PUSH 40 mg Q12HR DELROY Administration Hydroxychloroquine Sulfate 200 mg 08/08/24 09:00 08/13/24 20:23 Hydroxychloroquine Sulfate 200 Mg Tablet PO 200 mg Q12HR DELROY Administration Ondansetron HCl 4 mg 08/07/24 16:28 Ondansetron Inj 4 Mg/2 Ml Vial IV PUSH Q4H PRN Nausea Potassium Chloride 20 meq 08/13/24 09:00 08/13/24 08:10 Potassium Chloride 20 Meq Er Tablet PO 20 meq DAILY DELROY Administration Spironolactone 25 mg 08/11/24 09:00 08/13/24 08:08 Spironolactone 25 Mg Tablet PO 25 mg QAM DELROY Administration Radiology Results: ITS Impressions Chest X-Ray 08/07/24 15:18 IMPRESSION: Mild interstitial edema versus artifact from crowding. Mild bibasilar plex us/scar. Chronic right hemidiaphragm elevation. Venous Doppler Study 08/07/24 17:15 IMPRESSION: Limited visualization of the lower extremity veins abdomen below the level of the knees as detailed above. No DVT detected in the adequately visualized veins. Abdomen Ultrasound 08/08/24 15:34 IMPRESSION: normal limited abdominal ultrasound. Labs Labs: Laboratory Results - last 24 hr 08/14/24 06:34 Sodium 137 Potassium 3.7 Chloride 94 L Carbon Dioxide > 40 H Anion Gap BUN 21 H Creatinine 0.90 Estim Creat Clear Calc 82 Estimated GFR > 60 Glucose 88 Calcium 9.0 Magnesium 2.2 Quality VTE Prophylaxis VTE prophylaxis: pharmacologic ordered
[2024-08-14] MEDS: ENOXAPARIN 40 MG/0.4 ML SYRINGE SUB-Q ×2 (08:57→20:30)
[2024-08-14] MEDS: SPIRONOLACTONE 25 MG TABLET PO (08:57)
[2024-08-14] MEDS: HYDROXYCHLOROQUINE SULFATE 200 MG TABLET PO ×2 (08:58→20:30)
[2024-08-14] MEDS: CYANOCOBALAMIN 1,000 MCG TABLET 1000 MCG PO (08:58)
[2024-08-14] MEDS: POTASSIUM CHLORIDE 20 MEQ ER TABLET PO (08:58)
[2024-08-14] MEDS: FUROSEMIDE INJ 40 MG/4 ML VIAL IV PUSH (08:58)
[2024-08-14] MEDS: EMPAGLIFLOZIN 10 MG TABLET PO (08:58)
--- NOTE | 2024-08-14 11:37 | PM.PNCARD ---
Progress Note: A&P Assessment and Plan (1) CHF (congestive heart failure): Qualifiers: Heart failure chronicity: unspecified Heart failure type: diastolic Qualified Code(s): I50.30 - Unspecified diastolic (congestive) heart failure Code(s): I50.9 - Heart failure, unspecified Status: Acute Plan Acute on chronic diastolic heart failure Lymphedema Morbid obesity Obstructive sleep apnea Hypertension Systemic lupus erythematosus - Continue spironolactone - NORMAN wraps - Edema significantly improved over weekend, will shift her to p.o. furosemide today - Strict I/Os to be monitored - Blood pressure control - Weight loss - would recommend GLP-1 - Will add Entresto 24-26mg b.i.d. to her regimen starting tonight Subjective Date/time seen: 08/14/24 11:37 Interval history: Cardiology follow up visit She is feeling better today. Feels less short of breath. Still has lower extremity edema. No palpitations or chest pain. Date of service 08/11/2024: Continues to improve. Making good urine. Breathing is better. Legs wrapped today. Date of service 08/14/2024: Feeling better today. Lower extremity edema improving. Denies shortness of breath. Review of Systems Review of Systems: 12 systems were reviewed with pertinent positives and negatives per HPI. Except as documented in the HPI, all other systems were reviewed and are negative. All systems reviewed & are unremarkable except as noted in HPI and below Constitutional: Constitutional: Reports no additional constitutional complaints ENT: Reports system reviewed and no additional complaints, except as documented Cardiovascular: Cardiovascular: Reports no additional cardiovascular complaints and Reports dyspnea Respiratory: Respiratory: Denies cough, Reports dyspnea and Denies wheezing Gastrointestinal: Gastrointestinal: Reports no additional gastrointestinal complaints Allergic/Immunologic: Allergic/Immunologic: Denies wheezing Exam Narrative: Morbidly obese female sitting on the edge of the bed. Comfortable and in no distress Const: General: comfortable, no acute distress, alert and awake Orientation/consciousness: patient oriented x3 HENMT: Head: normal to inspection Eyes: General: appearance normal, both eyes and all related structures Pupils: Equal, round and reactive pupils present Neck: Neck: normal visual inspection and supple Carotids: normal carotid upstroke Resp: Effort & Inspection: normal respiratory effort Auscultation: not clear to auscultation bilaterally, crackles and diminished lung sounds Cardio: Rate: regular rate Rhythm: regular rhythm Heart sounds: S1 normal heart sound present, S2 normal heart sound present and no murmurs GI: Auscultation: normal bowel sounds Skin: General skin exam: normal color Neuro: General: patient oriented x3 Cranial nerves: Yes Equal, round and reactive pupils present Extrem: General: edema and pedal edema Other: Bilateral knee high NORMAN wraps Psych: Appearance: grossly normal Mental Status: mental status grossly normal Objective Data Vital Signs Vital Signs: Vital Signs - 24 hr 08/13/24 12:00 08/13/24 13:00 08/13/24 16:00 Temperature 36.4 C Pulse Rate 94 109 H 84 Respiratory Rate 22 H Blood Pressure 98/40 L Pulse Oximetry 93 Oxygen Delivery Oxygen Flow Rate Fraction of Inspired Oxygen 08/13/24 16:00 08/13/24 20:00 08/13/24 20:00 Temperature 37.1 C 36.5 C Pulse Rate 92 94 88 Respiratory Rate 24 H 18 Blood Pressure 146/84 H 125/67 Pulse Oximetry 98 93 Oxygen Delivery Oxygen Flow Rate Fraction of Inspired Oxygen 08/14/24 00:00 08/14/24 00:00 08/14/24 01:15 Temperature 36.4 C Pulse Rate 96 79 Respiratory Rate 18 Blood Pressure 140/34 L Pulse Oximetry 90 93 Oxygen Delivery BiPAP Oxygen Flow Rate 1 Fraction of Inspired Oxygen 08/14/24 03:08 08/14/24 04:00 08/14/24 04:00 Temperature 36.7 C Pulse Rate 86 77 Respiratory Rate 21 H 18 Blood Pressure 132/76 Pulse Oximetry 91 Oxygen Delivery BiPAP Oxygen Flow Rate Fraction of Inspired Oxygen 08/14/24 06:07 08/14/24 08:00 08/14/24 08:03 Temperature 36.7 C 36.6 C Pulse Rate 86 79 74 Respiratory Rate 18 18 Blood Pressure 121/69 120/68 Pulse Oximetry 91 94 Oxygen Delivery Oxygen Flow Rate Fraction of Inspired Oxygen 08/14/24 08:22 08/14/24 08:58 Temperature Pulse Rate Respiratory Rate 18 Blood Pressure Pulse Oximetry 92 92 Oxygen Delivery Nasal Cannula Nasal Cannula Oxygen Flow Rate 1 1 Fraction of Inspired Oxygen 24 Intake/Output Intake/Output: Intake & Output 08/11/24 08/12/24 08/13/24 08/14/24 23:59 23:59 23:59 23:59 Intake Total 920 1150 900 240 Output Total 4300 2600 3200 1500 Balance -7680 -1450 -2300 -1260 Meds/Results Medications: Active Medications Generic Name Dose Route Start Last Admin Trade Name Freq PRN Reason Stop Dose Admin Acetaminophen 650 mg 08/07/24 16:28 Acetaminophen 325 Mg Tablet PO Q4H PRN Mild Pain (1-3) or Fever Hydrocodone Bitart/Acetaminophen 1 tab 08/07/24 16:28 Hydrocodone/Acetaminophen (*Crx) 5-325 Mg Tablet PO Q4H PRN Pain Rated 4-6 Cyanocobalamin 1,000 mcg 08/08/24 09:00 08/14/24 08:58 Cyanocobalamin 1,000 Mcg Tablet PO 1,000 mcg DAILY DELROY Administration Empagliflozin 10 mg 08/08/24 09:00 08/14/24 08:58 Empagliflozin 10 Mg Tablet PO 10 mg DAILY DELROY Administration Enoxaparin Sodium 40 mg 08/07/24 21:00 08/14/24 08:57 Enoxaparin 40 Mg/0.4 Ml Syringe SUB-Q 40 mg Q12HR DELROY Administration Furosemide 40 mg 08/12/24 21:00 08/14/24 08:58 Furosemide Inj 40 Mg/4 Ml Vial IV PUSH 40 mg Q12HR DELROY Administration Hydroxychloroquine Sulfate 200 mg 08/08/24 09:00 08/14/24 08:58 Hydroxychloroquine Sulfate 200 Mg Tablet PO 200 mg Q12HR DELROY Administration Ondansetron HCl 4 mg 08/07/24 16:28 Ondansetron Inj 4 Mg/2 Ml Vial IV PUSH Q4H PRN Nausea Potassium Chloride 20 meq 08/13/24 09:00 08/14/24 08:58 Potassium Chloride 20 Meq Er Tablet PO 20 meq DAILY DELROY Administration Spironolactone 25 mg 08/11/24 09:00 08/14/24 08:57 Spironolactone 25 Mg Tablet PO 25 mg QAM DELROY Administration Radiology Results: ITS Impressions Chest X-Ray 08/07/24 15:18 IMPRESSION: Mild interstitial edema versus artifact from crowding. Mild bibasilar plexus/scar. Chronic right hemidiaphragm elevation. Venous Doppler Study 08/07/24 17:15 IMPRESSION: Limited visualization of the lower extremity veins abdomen below the level of the knees as detailed above. No DVT detected in the adequately visualized veins. Abdomen Ultrasound 08/08/24 15:34 IMPRESSION: normal limited abdominal ultrasound. Labs Labs: Laboratory Results - last 24 hr 08/14/24 06:34 Sodium 137 Potassium 3.7 Chloride 94 L Carbon Dioxide > 40 H Anion Gap BUN 21 H Creatinine 0.90 Estim Creat Clear Calc 82 Estimated GFR > 60 Glucose 88 Calcium 9.0 Magnesium 2.2
[2024-08-14] MEDS: FUROSEMIDE 80 MG TABLET PO (16:10)
[2024-08-14] MEDS: SACUBITRIL/VALSARTAN 24-26 MG TABLET 1 TAB PO (20:30)
[2024-08-15] VITALS (13 sets, daily range): BP systolic 103–112; BP diastolic 48–64; PULSE 73–96; RESP 18–20; TEMP 36.4–36.5; O2SAT 87–97
--- NOTE | 2024-08-15 | ECHO_ITS ---
Patient Info Name: Mara Us Age: 49 years : 1975 Gender: Female Ht: 61 in Wt: 269 lbs BSA: 2.37 m2 HR: 78 bpm BP: 108 / 58 mmHg Technical Quality: Fair Exam Date: 08/15/2024 12:34 PM Exam Location: Echo Lab Patient Status: Inpatient Admit Date: 08/09/2024 Staff Ordering Physician: Luke Dumont APRN Tooth Inspector: Paul Danielle RDCS Attending Provider: Arlyn Butler APRN Referring Physician: Tim AVILES; Exam Type: CA echo limited w bubble study Study Info Indications - Possible PFO Limited two-dimensional transthoracic echocardiogram is performed with agitated saline. Summary 1. This was a limited study for bubble study only. 2. Intact interatrial septum visualized by agitated saline imaging. Negative bubble study. Atrial Septum Intact interatrial septum visualized by agitated saline imaging. Negative bubble study. Report Signatures
[2024-08-15 05:22] LABS: Blood Urea Nitrogen 26 mg/dL (7-17); Calcium 8.5 mg/dL (8.4-10.2); Carbon Dioxide > 40 mmol/L (22-30); Chloride 91 mmol/L (98-107); Estimated CRCL calculation 73 ml/min; Estimated Glomerular Filt Rate 59; Glucose 91 mg/dL (65-110); Potassium 4.1 mmol/L (3.4-5.0); Sodium 135 mmol/L (137-145)
[2024-08-15] MEDS: FUROSEMIDE 80 MG TABLET PO ×2 (08:55→17:33)
[2024-08-15] MEDS: ENOXAPARIN 40 MG/0.4 ML SYRINGE SUB-Q ×2 (08:55→20:16)
[2024-08-15] MEDS: EMPAGLIFLOZIN 10 MG TABLET PO (08:55)
[2024-08-15] MEDS: CYANOCOBALAMIN 1,000 MCG TABLET 1000 MCG PO (08:55)
[2024-08-15] MEDS: SPIRONOLACTONE 25 MG TABLET PO (08:56)
[2024-08-15] MEDS: POTASSIUM CHLORIDE 20 MEQ ER TABLET PO (08:56)
[2024-08-15] MEDS: HYDROXYCHLOROQUINE SULFATE 200 MG TABLET PO ×2 (08:56→20:16)
[2024-08-15] MEDS: SACUBITRIL/VALSARTAN 24-26 MG TABLET 1 TAB PO ×2 (08:56→20:20)
--- NOTE | 2024-08-15 11:23 | P.PNIM_ITS ---
Progress Note: A&P Assessment and Plan (1) CHF (congestive heart failure): Qualifiers: Heart failure chronicity: acute on chronic Heart failure type: diastolic Qualified Code(s): I50.33 - Acute on chronic diastolic (congestive) heart failure Code(s): I50.9 - Heart failure, unspecified Status: Acute Assessment and Plan: Previous ECHO from February shows EF of 55-60% and some diastolic dysfunction. Currently with evidence of Volume overload per CXR and Physical Exam. 08/10 TTE: 1. Complete two-dimensional, color flow and Doppler transthoracic echocardiogram is performed. 2. Left ventricular chamber dimension is normal. 3. Left ventricular wall thickness is normal. 4. Left ventricular systolic function is mildly reduced with a visually estimated ejection fraction of 50-55%. 5. Left ventricular septal wall motion shows abnormal septal motion due to RV pressure and volume load. 6. Right ventricular chamber dimension is enlarged. 7. Right ventricular systolic function is reduced. 8. Right atrial chamber dimension is enlarged. 9. Possible Patent foramen ovale (PFO) on color flow imaging. 10. There is moderate tricuspid valve regurgitation. 11. Mild pulmonary hypertension, estimated pulmonary arterial systolic pressure is 52 mmHg. 12. Dilated inferior vena cava with <50% collapse upon inspiration consistent with elevated right atrial pressure, 15 mmHg. PLAN * Continue Lasix IV. Received 40-40-60 08/10, 60mg BID 08/11. 60/40 08/13, 40/40 08/13. Creatinine and electrolytes stable. Can likely switch to PO soon * BMP, Mag in AM * Cardiology consulted, appreciate recommendations: added metolazone 2.5mg daily 08/13. Plan to start entresto when oral lasix resumed * Monitor labs and VS and trend. * Weight improving with higher dose of lasix and fluid restriction: 130.9 kg on 08/07/24, 137.5 kg 08/09, 138.1kg 08/10. 136.2kg 08/11, 131.1kg 08/12, 129.5kg 08/13 * Fluid restriction 1000ml per day * I&O * Continuing jardiance 08/15: Acute on chronic diastolic congestive heart failure, Entresto started, spironolactone, oral Lasix, fluid restriction 1000 mL per day, Jardiance (2) Acute hypoxic respiratory failure: Code(s): J96.01 - Acute respiratory failure with hypoxia Status: Acute Assessment and Plan: Not using oxygen at home Continue Supplemental oxygen. * Continue supplemental oxygen. * Home oxygen determination ordered. Pt will need it for her BiPap that polysomnography recommends bleed in of 4L but weaning O2 so reasses. Continue BiPap with settings of 18/8;R23;3L. Will need for home * Weaned to RA-1L yesterday and today. * Monitor labs and VS. * Continue treatment of heart failure as noted (3) Transaminitis: Code(s): R74.01 - Elevation of levels of liver transaminase levels Status: Acute Assessment and Plan: LFT's elevated on admission. AST/ALT 151/189, Bilirubin 1.4 Suspect elevated 2/2 heart failure, LFT's improving. No nausea or abdominal pain * Improved today: 73/134/Bili 1.3 * 08/08 US RUQ normal (4) Lymphedema of both lower extremities: Code(s): I89.0 - Lymphedema, not elsewhere classified Status: Acute Assessment and Plan: Likely 2/2 fluid overload. Patient reports no edema earlier this month * NORMAN wraps are in place bilaterally and edema is slightly improved as compared to yesterday. * Continue NORMAN wraps and elevation of extremities when in bed * Diuresis as noted (5) STAS (obstructive sleep apnea): Code(s): G47.33 - Obstructive sleep apnea (adult) (pediatric) Status: Acute Assessment and Plan: Obesity contributing or causing STAS and contributes to other medical issues. Untreated STAS also exacerbating heart failure. Tolerating Bipap * Continue BiPap, started in the hospital. Settings of 18/8 w/3L oxygen bled in. * Order placed to set up home BiPap based on Polysomnography recs. * Pt again tolerated BiPap well last evening. She is still awaiting home set up. * Ordered apnea link for tonight to evaluate since weaning oxygen 08/15: Patient was on ApneaLink at 1 liter/minute bleeding in but prior sleep study shows meets 3 L bleed in at night (6) Essential (primary) hypertension: Onset Date: Unknown Code(s): I10 - Essential (primary) hypertension Status: Acute Assessment and Plan: Blood pressure low normal, tolerating diuresis. Blood pressure ranging 104-130/53-73 * Diuresing as noted (7) SLE (systemic lupus erythematosus): Onset Date: Unknown Qualifiers: Systemic lupus erythematosus type: unspecified Systemic lupus erythematosus organ involvement: unspecified Qualified Code(s): M32.9 - Systemic lupus erythematosus, unspecified Code(s): M32.9 - Systemic lupus erythematosus, unspecified Status: Chronic Assessment and Plan: * Continue Hydroxychloroquine (8) Morbid obesity: Onset Date: Unknown Code(s): E66.01 - Morbid (severe) obesity due to excess calories Status: Chronic Assessment and Plan: * Recommend lifestyle changes to decrease Cardiovascular risk Plan Weaning O2, increasing diuresis Time Spent With Patient Time with patient: Greater than 35 minutes Subjective Date/time seen: 08/15/24 11:23 Interval history: Patient reports breathing better and decreased swelling. She is still requiring oxygen. She does not have BiPAP machine at home but she requires BiPAP at night with 3 L oxygen bleed in. Plan to complete 6 minute walk test for home oxygen evaluation. Discussed with pulmonology who is working with Respiratory Therapy to see if [facility] will be able to provide BiPap on discharge. Patient on oral diuretics and fluid restriction of 1000 mL which will be required on discharge. Instructed patient on continuing these directions. Also instructed patient's mother. Was hoping to discharge today but no answer regarding BiPap equipment which is certainly needed by end of day. Review of Systems Review of Systems: All systems reviewed & are unremarkable except as noted in HPI and below Exam Narrative: Morbidly obese female sitting on the edge of the bed. Comfortable and in no distress Const: General: comfortable, no acute distress, alert and awake Orientation/consciousness: patient oriented x3 HENMT: Head: normal to inspection Eyes: General: appearance normal, both eyes and all related structures Pupils: Equal, round and reactive pupils present Neck: Neck: normal visual inspection and supple Carotids: normal carotid upstroke Resp: Effort & Inspection: normal respiratory effort Auscultation: clear to auscultation bilaterally and diminished lung sounds Cardio: Rate: regular rate Rhythm: regular rhythm Heart sounds: S1 normal heart sound present, S2 normal heart sound present and no murmurs GI: Auscultation: normal bowel sounds Skin: General skin exam: normal color Neuro: General: patient oriented x3 Cranial nerves: Yes Equal, round and reactive pupils present Extrem: General: edema and pedal edema Other: Bilateral knee high NORMAN wraps Psych: Appearance: grossly normal Mental Status: mental status grossly normal Objective Data Vital Signs Vital Signs: Vital Signs - 24 hr 08/14/24 12:00 08/14/24 12:01 08/14/24 16:00 Temperature 36.5 C 36.5 C Pulse Rate 74 87 77 Respiratory Rate 18 18 Blood Pressure 122/72 124/68 Pulse Oximetry 94 95 Oxygen Delivery Oxygen Flow Rate 08/14/24 16:04 08/14/24 20:00 08/14/24 20:00 Temperature 36.5 C Pulse Rate 71 81 86 Respiratory Rate 20 Blood Pressure 105/82 Pulse Oximetry 94 Oxygen Delivery Oxygen Flow Rate 08/14/24 23:40 08/14/24 23:46 08/15/24 00:00 Temperature 36.5 C Pulse Rate 84 74 Respiratory Rate 35 H 20 Blood Pressure 98/62 L Pulse Oximetry 96 Oxygen Delivery BiPAP Oxygen Flow Rate 08/15/24 04:00 08/15/24 04:00 08/15/24 08:00 Temperature 36.4 C 36.4 C Pulse Rate 73 74 78 Respiratory Rate 20 20 Blood Pressure 103/48 L 108/58 L Pulse Oximetry 94 94 Oxygen Delivery Oxygen Flow Rate 08/15/24 08:00 Temperature Pulse Rate Respiratory Rate Blood Pressure Pulse Oximetry 94 Oxygen Delivery Nasal Cannula Oxygen Flow Rate 2 Intake/Output Intake/Output: Intake & Output 08/12/24 08/13/24 08/14/24 08/15/24 23:59 23:59 23:59 23:59 Intake Total 1150 900 900 240 Output Total 2600 3200 4000 Balance -1450 -2300 -3100 240 Meds/Results Medications: Active Medications Generic Name Dose Route Start Last Admin Trade Name Freq PRN Reason Stop Dose Admin Acetaminophen 650 mg 08/07/24 16:28 Acetaminophen 325 Mg Tablet PO Q4H PRN Mild Pain (1-3) or Fever Hydrocodone Bitart/Acetaminophen 1 tab 08/07/24 16:28 Hydrocodone/Acetaminophen (*Crx) 5-325 Mg Tablet PO Q4H PRN Pain Rated 4-6 Cyanocobalamin 1,000 mcg 08/08/24 09:00 08/15/24 08:55 Cyanocobalamin 1,000 Mcg Tablet PO 1,000 mcg DAILY DELROY Administration Empagliflozin 10 mg 08/08/24 09:00 08/15/24 08:55 Empagliflozin 10 Mg Tablet PO 10 mg DAILY DELROY Administration Enoxaparin Sodium 40 mg 08/07/24 21:00 08/15/24 08:55 Enoxaparin 40 Mg/0.4 Ml Syringe SUB-Q 40 mg Q12HR DELROY Administration Furosemide 80 mg 08/14/24 17:00 08/15/24 08:55 Furosemide 80 Mg Tablet PO 80 mg BID DELROY Administration Hydroxychloroquine Sulfate 200 mg 08/08/24 09:00 08/15/24 08:56 Hydroxychloroquine Sulfate 200 Mg Tablet PO 200 mg Q12HR DELROY Administration Ondansetron HCl 4 mg 08/07/24 16:28 Ondansetron Inj 4 Mg/2 Ml Vial IV PUSH Q4H PRN Nausea Perflutren Lipid Microsphere 0 ml 08/15/24 09:07 Perflutren Lipid Microspheres 1.5 Ml Vial Diluted To 10 Ml Total Volume IV PUSH 08/18/24 09:07 ONCE PRN adequate visualization Protocol Potassium Chloride 20 meq 08/13/24 09:00 08/15/24 08:56 Potassium Chloride 20 Meq Er Tablet PO 20 meq DAILY DELROY Administration Sacubitril/Valsartan 1 tab 08/14/24 21:00 08/15/24 08:56 Sacubitril/Valsartan 24-26 Mg Tablet PO 1 tab Q12HR DELROY Administration Spironolactone 25 mg 08/11/24 09:00 08/15/24 08:56 Spironolactone 25 Mg Tablet PO 25 mg QAM DELROY Administration Radiology Results: ITS Impressions Chest X-Ray 08/07/24 15:18 IMPRESSION: Mild interstitial edema versus artifact from crowding. Mild bibasilar plexus/scar. Chronic right hemidiaphragm elevation. Venous Doppler Study 08/07/24 17:15 IMPRESSION: Limited visualization of the lower extremity veins abdomen below the level of the knees as detailed above. No DVT detected in the adequately visualized veins. Abdomen Ultrasound 08/08/24 15:34 IMPRESSION: normal limited abdominal ultrasound. Labs Labs: Laboratory Results - last 24 hr 08/15/24 04:47 Sodium 135 L Potassium 4.1 Chloride 91 L Carbon Dioxide > 40 H Anion Gap BUN 26 H Creatinine 1.00 Estim Creat Clear Calc 73 Estimated GFR 59 Glucose 91 Calcium 8.5 Magnesium 2.0 Pulse Oximetry SpO2 results: 94-95% on 1 L nasal cannula at rest, 87% on 1 L with activity 92% with 2 L with activity and recent sleep study shows patient requires 3 liters/minute bleed in overnight on BiPAP 16/04 Attestation: I personally reviewed and interpreted this pulse oximetry as follows: Interpretation: Patient continues to require oxygen as above Quality VTE Prophylaxis VTE prophylaxis: pharmacologic ordered Hospitalist MIPS Advance Care Plan I have confirmed that the patient's Advanced Care Plan is present, code status is documented, or surrogate decision maker is listed in patient medical record.: Yes Medication Reconciliation I have utilized all available resources to obtain, update and review the patients current medications (includes all prescriptions, OTC, herbals, cannabis, and nutritional supplements).: Yes
--- NOTE | 2024-08-15 15:29 | P.PNCA_ITS ---
Progress Note: A&P Assessment and Plan (1) CHF (congestive heart failure): Qualifiers: Heart failure chronicity: unspecified Heart failure type: diastolic Qualified Code(s): I50.30 - Unspecified diastolic (congestive) heart failure Code(s): I50.9 - Heart failure, unspecified Status: Acute Plan Acute on chronic diastolic heart failure Lymphedema Morbid obesity Obstructive sleep apnea Hypertension Systemic lupus erythematosus - NORMAN wraps - Continue p.o. furosemide 80mg b.i.d. today. - Strict I/Os to be monitored - Blood pressure control - Weight loss - would recommend GLP-1 - Continue Entresto 24-26mg b.i.d. - Continue spironolactone 25mg daily - She has follow up with cardiology at [facility] on 09/06/24 - Cardiology will sign off please call with questions Subjective Date/time seen: 08/15/24 15:29 Interval history: Cardiology follow up visit She is feeling better today. Feels less short of breath. Still has lower extremity edema. No palpitations or chest pain. Date of service 08/11/2024: Continues to improve. Making good urine. Breathing is better. Legs wrapped today. Date of service 08/14/2024: Feeling better today. Lower extremity edema improving. Denies shortness of breath. Date of service 08/15/2024: Continues to improve. Feels she is urinating a lot after transition to p.o. furosemide. Review of Systems Review of Systems: 12 systems were reviewed with pertinent positives and negatives per HPI. Except as documented in the HPI, all other systems were reviewed and are negative. All systems reviewed & are unremarkable except as noted in HPI and below Constitutional: Constitutional: Reports no additional constitutional complaints ENT: Reports system reviewed and no additional complaints, except as documented Cardiovascular: Cardiovascular: Reports no additional cardiovascular complaints and Reports dyspnea Respiratory: Respiratory: Denies cough, Reports dyspnea and Denies wheezing Gastrointestinal: Gastrointestinal: Reports no additional gastrointestinal complaints Allergic/Immunologic: Allergic/Immunologic: Denies wheezing Exam Narrative: Morbidly obese female sitting on the edge of the bed. Comfortable and in no distress Const: General: comfortable, no acute distress, alert and awake Orientation/consciousness: patient oriented x3 HENMT: Head: normal to inspection Eyes: General: appearance normal, both eyes and all related structures Pupils: Equal, round and reactive pupils present Neck: Neck: normal visual inspection and supple Carotids: normal carotid upstroke Resp: Effort & Inspection: normal respiratory effort Auscultation: clear to auscultation bilaterally and diminished lung sounds Cardio: Rate: regular rate Rhythm: regular rhythm Heart sounds: S1 normal heart sound present, S2 normal heart sound present and no murmurs GI: Auscultation: normal bowel sounds Skin: General skin exam: normal color Neuro: General: patient oriented x3 Cranial nerves: Yes Equal, round and reactive pupils present Extrem: General: edema and pedal edema Other: Bilateral knee high NORMAN wraps Psych: Appearance: grossly normal Mental Status: mental status grossly normal Objective Data Vital Signs Vital Signs: Vital Signs - 24 hr 08/14/24 16:00 08/14/24 16:04 08/14/24 20:00 Temperature 36.5 C 36.5 C Pulse Rate 77 71 81 Respiratory Rate 18 20 Blood Pressure 124/68 105/82 Pulse Oximetry 95 94 Oxygen Delivery Oxygen Flow Rate 08/14/24 20:00 08/14/24 23:40 08/14/24 23:46 Temperature 36.5 C Pulse Rate 86 84 Respiratory Rate 35 H 20 Blood Pressure 98/62 L Pulse Oximetry 96 Oxygen Delivery BiPAP Oxygen Flow Rate 08/15/24 00:00 08/15/24 04:00 08/15/24 04:00 Temperature 36.4 C Pulse Rate 74 73 74 Respiratory Rate 20 Blood Pressure 103/48 L Pulse Oximetry 94 Oxygen Delivery Oxygen Flow Rate 08/15/24 08:00 08/15/24 08:00 08/15/24 11:30 Temperature 36.4 C Pulse Rate 78 78 Respiratory Rate 20 Blood Pressure 108/58 L Pulse Oximetry 94 94 87 L Oxygen Delivery Nasal Cannula Room Air Oxygen Flow Rate 2 08/15/24 11:31 08/15/24 11:32 08/15/24 11:35 Temperature Pulse Rate 96 92 Respiratory Rate Blood Pressure Pulse Oximetry 92 87 L 92 Oxygen Delivery Nasal Cannula Nasal Cannula Nasal Cannula Oxygen Flow Rate 1 1 2 08/15/24 11:45 08/15/24 12:00 08/15/24 14:29 Temperature 36.4 C Pulse Rate 81 82 Respiratory Rate 19 Blood Pressure 110/60 Pulse Oximetry 95 94 95 Oxygen Delivery Nasal Cannula Nasal Cannula Oxygen Flow Rate 1 1 Intake/Output Intake/Output: Intake & Output 1208/13/24 08/14/24 08/15/24 23:59 23:59 23:59 23:59 Intake Total 1150 900 900 480 Output Total 2600 3200 4000 Balance -1450 -2300 -3100 480 Meds/Results Medications: Active Medications Generic Name Dose Route Start Last Admin Trade Name Freq PRN Reason Stop Dose Admin Acetaminophen 650 mg 08/07/24 16:28 Acetaminophen 325 Mg Tablet PO Q4H PRN Mild Pain (1-3) or Fever Hydrocodone Bitart/Acetaminophen 1 tab 08/07/24 16:28 Hydrocodone/Acetaminophen (*Crx) 5-325 Mg Tablet PO Q4H PRN Pain Rated 4-6 Cyanocobalamin 1,000 mcg 08/08/24 09:00 08/15/24 08:55 Cyanocobalamin 1,000 Mcg Tablet PO 1,000 mcg DAILY DELROY Administration Empagliflozin 10 mg 08/08/24 09:00 08/15/24 08:55 Empagliflozin 10 Mg Tablet PO 10 mg DAILY DELROY Administration Enoxaparin Sodium 40 mg 08/07/24 21:00 08/15/24 08:55 Enoxaparin 40 Mg/0.4 Ml Syringe SUB-Q 40 mg Q12HR DELROY Administration Furosemide 80 mg 08/14/24 17:00 08/15/24 08:55 Furosemide 80 Mg Tablet PO 80 mg BID DELROY Administration Hydroxychloroquine Sulfate 200 mg 08/08/24 09:00 08/15/24 08:56 Hydroxychloroquine Sulfate 200 Mg Tablet PO 200 mg Q12HR DELROY Administration Ondansetron HCl 4 mg 08/07/24 16:28 Ondansetron Inj 4 Mg/2 Ml Vial IV PUSH Q4H PRN Nausea Perflutren Lipid Microsphere 0 ml 08/15/24 09:07 Perflutren Lipid Microspheres 1.5 Ml Vial Diluted To 10 Ml Total Volume IV PUSH 08/18/24 09:07 ONCE PRN adequate visualization Protocol Potassium Chloride 20 meq 08/13/24 09:00 08/15/24 08:56 Potassium Chloride 20 Meq Er Tablet PO 20 meq DAILY DELROY Administration Sacubitril/Valsartan 1 tab 08/14/24 21:00 08/15/24 08:56 Sacubitril/Valsartan 24-26 Mg Tablet PO 1 tab Q12HR DELROY Administration Spironolactone 25 mg 08/11/24 09:00 08/15/24 08:56 Spironolactone 25 Mg Tablet PO 25 mg QAM DELROY Administration Radiology Results: ITS Impressions Chest X-Ray 08/07/24 15:18 IMPRESSION: Mild interstitial edema versus artifact from crowding. Mild bibasilar plexus/scar. Chronic right hemidiaphragm elevation. Venous Doppler Study 08/07/24 17:15 IMPRESSION: Limited visualization of the lower extremity veins abdomen below the level of the knees as detailed above. No DVT detected in the adequately visualized veins. Abdomen Ultrasound 08/08/24 15:34 IMPRESSION: normal limited abdominal ultrasound. Labs Labs: Laboratory Results - last 24 hr 08/15/24 04:47 Sodium 135 L Potassium 4.1 Chloride 91 L Carbon Dioxide > 40 H Anion Gap BUN 26 H Creatinine 1.00 Estim Creat Clear Calc 73 Estimated GFR 59 Glucose 91 Calcium 8.5 Magnesium 2.0
[2024-08-16] VITALS (8 sets, daily range): BP systolic 96–112; BP diastolic 53–60; PULSE 79–89; RESP 18–21; TEMP 36.4–37.3; O2SAT 91–99
[2024-08-16 05:58] LABS: Blood Urea Nitrogen 23 mg/dL (7-17); Calcium 8.7 mg/dL (8.4-10.2); Carbon Dioxide > 40 mmol/L (22-30); Chloride 93 mmol/L (98-107); Estimated CRCL calculation 71 ml/min; Estimated Glomerular Filt Rate 59; Glucose 90 mg/dL (65-110); Potassium 3.6 mmol/L (3.4-5.0); Sodium 137 mmol/L (137-145)
[2024-08-16] MEDS: FUROSEMIDE 80 MG TABLET PO ×2 (09:01→17:12)
[2024-08-16] MEDS: EMPAGLIFLOZIN 10 MG TABLET PO (09:01)
[2024-08-16] MEDS: HYDROXYCHLOROQUINE SULFATE 200 MG TABLET PO ×2 (09:01→20:25)
[2024-08-16] MEDS: POTASSIUM CHLORIDE 20 MEQ ER TABLET PO (09:01)
[2024-08-16] MEDS: CYANOCOBALAMIN 1,000 MCG TABLET 1000 MCG PO (09:01)
[2024-08-16] MEDS: SACUBITRIL/VALSARTAN 24-26 MG TABLET 1 TAB PO ×2 (09:02→20:25)
[2024-08-16] MEDS: ENOXAPARIN 40 MG/0.4 ML SYRINGE SUB-Q ×2 (09:02→20:25)
[2024-08-16] MEDS: SPIRONOLACTONE 25 MG TABLET PO (09:02)
--- NOTE | 2024-08-16 10:20 | PCNWS ---
Weekly nutritional screen. Patient is tolerating current diet with adequate intake. No weight loss reported. No nutritional needs at this time.
--- NOTE | 2024-08-16 15:11 | P.PNIM_ITS ---
Progress Note: A&P Assessment and Plan (1) CHF (congestive heart failure): Qualifiers: Heart failure chronicity: acute on chronic Heart failure type: diastolic Qualified Code(s): I50.33 - Acute on chronic diastolic (congestive) heart failure Code(s): I50.9 - Heart failure, unspecified Status: Acute Assessment and Plan: Previous ECHO from February shows EF of 55-60% and some diastolic dysfunction. Currently with evidence of Volume overload per CXR and Physical Exam. 08/10 TTE: 1. Complete two-dimensional, color flow and Doppler transthoracic echocardiogram is performed. 2. Left ventricular chamber dimension is normal. 3. Left ventricular wall thickness is normal. 4. Left ventricular systolic function is mildly reduced with a visually estimated ejection fraction of 50-55%. 5. Left ventricular septal wall motion shows abnormal septal motion due to RV pressure and volume load. 6. Right ventricular chamber dimension is enlarged. 7. Right ventricular systolic function is reduced. 8. Right atrial chamber dimension is enlarged. 9. Possible Patent foramen ovale (PFO) on color flow imaging. 10. There is moderate tricuspid valve regurgitation. 11. Mild pulmonary hypertension, estimated pulmonary arterial systolic pressure is 52 mmHg. 12. Dilated inferior vena cava with <50% collapse upon inspiration consistent with elevated right atrial pressure, 15 mmHg. PLAN * Continue Lasix IV. Received 40-40-60 08/10, 60mg BID 08/11. 60/40 08/13, 40/40 08/13. Creatinine and electrolytes stable. Can likely switch to PO soon * BMP, Mag in AM * Cardiology consulted, appreciate recommendations: added metolazone 2.5mg daily 08/13. Plan to start entresto when oral lasix resumed * Monitor labs and VS and trend. * Weight improving with higher dose of lasix and fluid restriction: 130.9 kg on 08/07/24, 137.5 kg 08/09, 138.1kg 08/10. 136.2kg 08/11, 131.1kg 08/12, 129.5kg 08/13 * Fluid restriction 1000ml per day * I&O * Continuing jardiance 08/15: Acute on chronic diastolic congestive heart failure, Entresto started, spironolactone, oral Lasix, fluid restriction 1000 mL per day, Jardiance 08/16/24: Pt tolerating medications well. Continue with current plan as she is making good progress and renal function is tolerating. Monitor labs and VS. (2) Acute hypoxic respiratory failure: Code(s): J96.01 - Acute respiratory failure with hypoxia Status: Acute Assessment and Plan: Not using oxygen at home Continue Supplemental oxygen. * Continue supplemental oxygen. * Home oxygen determination ordered. Pt will need it for her BiPap that polysomnography recommends bleed in of 4L but weaning O2 so reasses. Continue BiPap with settings of 18/8;R23;3L. Will need for home * Weaned to RA-1L yesterday and today. * Monitor labs and VS. * Continue treatment of heart failure as noted 08/16/24: Continue treatment with supplemental oxygen. Awaiting BiPap information regarding when she will have it. May discharge as soon as it is available. (3) Transaminitis: Code(s): R74.01 - Elevation of levels of liver transaminase levels Status: Acute Assessment and Plan: LFT's elevated on admission. AST/ALT 151/189, Bilirubin 1.4 Suspect elevated 2/2 heart failure, LFT's improving. No nausea or abdominal pain * Improved today: 73/134/Bili 1.3 * 08/08 US RUQ normal (4) Lymphedema of both lower extremities: Code(s): I89.0 - Lymphedema, not elsewhere classified Status: Acute Assessment and Plan: Likely 2/2 fluid overload. Patient reports no edema earlier this month * NORMAN wraps are in place bilaterally and edema is slightly improved as compared to yesterday. * Continue NORMAN wraps and elevation of extremities when in bed * Diuresis as noted 08/16/24: Great improvement from when I saw her one week ago. Continue diuresis and wraps with elevation in bed. (5) STAS (obstructive sleep apnea): Code(s): G47.33 - Obstructive sleep apnea (adult) (pediatric) Status: Acute Assessment and Plan: Obesity contributing or causing STAS and contributes to other medical issues. Untreated STAS also exacerbating heart failure. Tolerating Bipap * Continue BiPap, started in the hospital. Settings of 18/8 w/3L oxygen bled in. * Order placed to set up home BiPap based on Polysomnography recs. * Pt again tolerated BiPap well last evening. She is still awaiting home set up. * Ordered apnea link for tonight to evaluate since weaning oxygen 08/15: Patient was on ApneaLink at 1 liter/minute bleeding in but prior sleep study shows meets 3 L bleed in at night 08/16/24: Awaiting BiPap delivery. (6) Essential (primary) hypertension: Onset Date: Unknown Code(s): I10 - Essential (primary) hypertension Status: Acute Assessment and Plan: Blood pressure low normal, tolerating diuresis. Blood pressure ranging 104-130/53-73 * Diuresing as noted 08/16/24: BP stable. Continue to monitor. (7) SLE (systemic lupus erythematosus): Onset Date: Unknown Qualifiers: Systemic lupus erythematosus type: unspecified Systemic lupus erythematosus organ involvement: unspecified Qualified Code(s): M32.9 - Systemic lupus erythematosus, unspecified Code(s): M32.9 - Systemic lupus erythematosus, unspecified Status: Chronic Assessment and Plan: * Continue Hydroxychloroquine. 08/16/24: Continue home meds. (8) Morbid obesity: Onset Date: Unknown Code(s): E66.01 - Morbid (severe) obesity due to excess calories Status: Chronic Assessment and Plan: * Recommend lifestyle changes to decrease Cardiovascular risk Time Spent With Patient Time with patient: 15 - 25 minutes Subjective Date/time seen: 08/16/24 15:11 Interval history: This pt was examined at the bedside today in interval assessment. She is stable and awaiting a BiPap from [facility] for home to be delivered. She is otherwise ready for discharge. No new complaints and she states she is only feeling better each day. Specifically no CP, dyspnea, N/V Review of Systems Review of Systems: All systems reviewed & are unremarkable except as noted in HPI and below Exam Narrative: CONSTITUTIONAL: Obese, female pt sitting at the bedside at this time in no acute distress. She has no acute dyspnea present, appears comfortable and without any distress. HENMT: Atraumatic and normocephalic. MMM and patent oropharynx without any exudate, edema or erythema. EYES: PERRLA, EOMs intact, Conjunctiva are clear NECK: Supple, FROM RESPIRATORY: CTAB in all diaz. CARDIOVASCULAR: RRR, S1 and S2 present. No S3, S4, m,r,g,h or displacement of PMI. GI: Soft, NT, BS+x4, no guarding, rebound : Deferred SKIN: Intact, warm, dry, without lesion NEURO: Grossly intact without any focal abnormalities EXTREMITIES: Full AROM of all four extremities without deficit. PSYCH: A&Ox4, normal affect. Objective Data Vital Signs Vital Signs: Vital Signs - 24 hr 08/15/24 16:00 08/15/24 20:00 08/15/24 20:00 Temperature 97.7 F 97.7 F Pulse Rate 80 90 Respiratory Rate 20 18 Blood Pressure 112/58 L 103/64 Pulse Oximetry 95 97 91 Oxygen Delivery Nasal Cannula Oxygen Flow Rate 1 08/15/24 21:15 08/15/24 21:15 08/16/24 00:00 Temperature 97.7 F Pulse Rate 90 89 Respiratory Rate 20 18 Blood Pressure 96/53 L Pulse Oximetry 96 96 96 Oxygen Delivery Nasal Cannula BiPAP Oxygen Flow Rate 1 08/16/24 04:00 08/16/24 08:00 Temperature 97.8 F Pulse Rate 79 Respiratory Rate 20 Blood Pressure 108/55 L Pulse Oximetry 97 97 Oxygen Delivery Nasal Cannula Oxygen Flow Rate 1 Intake/Output Intake/Output: Intake & Output 08/13/24 08/14/24 08/15/24 08/16/24 23:59 23:59 23:59 23:59 Intake Total 900 900 800 360 Output Total 3200 4000 2750 Balance -2300 -3100 -1950 360 Meds/Results Medications: Active Medications Generic Name Dose Route Start Last Admin Trade Name Freq PRN Reason Stop Dose Admin Acetaminophen 650 mg 08/07/24 16:28 Acetaminophen 325 Mg Tablet PO Q4H PRN Mild Pain (1-3) or Fever Hydrocodone Bitart/Acetaminophen 1 tab 08/07/24 16:28 Hydrocodone/Acetaminophen (*Crx) 5-325 Mg Tablet PO Q4H PRN Pain Rated 4-6 Cyanocobalamin 1,000 mcg 08/08/24 09:00 08/16/24 09:01 Cyanocobalamin 1,000 Mcg Tablet PO 1,000 mcg DAILY DELROY Administration Empagliflozin 10 mg 08/08/24 09:00 08/16/24 09:01 Empagliflozin 10 Mg Tablet PO 10 mg DAILY DELROY Administration Enoxaparin Sodium 40 mg 08/07/24 21:00 08/16/24 09:02 Enoxaparin 40 Mg/0.4 Ml Syringe SUB-Q 40 mg Q12HR DELROY Administration Furosemide 80 mg 08/14/24 17:00 08/16/24 09:01 Furosemide 80 Mg Tablet PO 80 mg BID DELROY Administration Hydroxychloroquine Sulfate 200 mg 08/08/24 09:00 08/16/24 09:01 Hydroxychloroquine Sulfate 200 Mg Tablet PO 200 mg Q12HR DELRYO Administration Ondansetron HCl 4 mg 08/07/24 16:28 Ondansetron Inj 4 Mg/2 Ml Vial IV PUSH Q4H PRN Nausea Perflutren Lipid Microsphere 0 ml 08/15/24 09:07 Perflutren Lipid Microspheres 1.5 Ml Vial Diluted To 10 Ml Total Volume IV PUSH 08/18/24 09:07 ONCE PRN adequate visualization Protocol Potassium Chloride 20 meq 08/13/24 09:00 08/16/24 09:01 Potassium Chloride 20 Meq Er Tablet PO 20 meq DAILY DELROY Administration Sacubitril/Valsartan 1 tab 08/14/24 21:00 08/16/24 09:02 Sacubitril/Valsartan 24-26 Mg Tablet PO 1 tab Q12HR DELROY Administration Spironolactone 25 mg 08/11/24 09:00 08/16/24 09:02 Spironolactone 25 Mg Tablet PO 25 mg QAM DELROY Administration Radiology Results: ITS Impressions Chest X-Ray 08/07/24 15:18 IMPRESSION: Mild interstitial edema versus artifact from crowding. Mild bibasilar plexus/scar. Chronic right hemidiaphragm elevation. Venous Doppler Study 08/07/24 17:15 IMPRESSION: Limited visualization of the lower extremity veins abdomen below the level of the knees as detailed above. No DVT detected in the adequately visualized veins. Abdomen Ultrasound 08/08/24 15:34 IMPRESSION: normal limited abdominal ultrasound. Labs Labs: Laboratory Results - last 24 hr 08/16/24 05:04 Sodium 137 Potassium 3.6 Chloride 93 L Carbon Dioxide > 40 H Anion Gap BUN 23 H Creatinine 1.00 Estim Creat Clear Calc 71 Estimated GFR 59 Glucose 90 Calcium 8.7 Quality VTE Prophylaxis VTE prophylaxis: pharmacologic ordered
--- NOTE | 2024-08-16 17:47 | PM.CNPUL ---
Assessment and Plan Assessment and plan (1) STAS (obstructive sleep apnea): Code(s): G47.33 - Obstructive sleep apnea (adult) (pediatric) Status: Acute Assessment and Plan: Patient tells me she had obstructive sleep apnea diagnosed approximately 13 years ago and was prescribed a positive airway pressure device at that time. She wore for few years but then stopped. When she did wear it she says that it may be helped her breathe better. TSH on 08/07/2024 was 1.48. Patient had a in lab split night sleep study on 07/13/2024 with an AHI of 18 and hypoxemia. Recommended she be treated with BiPAP 18/8 with 3 L bleed in. [employer] informed us today that the insurance denied BiPAP 18/8 as they said that her apnea-hypopnea index improved on CPAP 7. I reviewed this study with a sleep specialist and the patient was on CPAP 7 for 15 minutes with no REM at 1 L bleed in. Her AHI was 4.1 but this was not an adequate amount of time to determine that this was an optimal setting. Plan: Tonight the patient will wear auto PAP 8-18 with 2 L bleed in and we will perform an overnight oximetry. Will discuss these results and the sleep study with a DME and insurance company on 08/17/2024 in order to provide optimal machine and settings for the patient's obstructive sleep apnea. Discussed with Tejal Garzon. Will follow with you. (2) CHF (congestive heart failure): Qualifiers: Heart failure chronicity: acute on chronic Heart failure type: diastolic Qualified Code(s): I50.33 - Acute on chronic diastolic (congestive) heart failure Code(s): I50.9 - Heart failure, unspecified Status: Acute Assessment and Plan: Patient followed by Cardiology and has diuresed 16 L since admission. Currently the patient is on Lasix 80 mg p.o. b.i.d., Jardiance 10 q.day, spironolactone 25 q.day, Entresto 24-26 q.12 hours. Plan: Continue optimization of her congestive heart failure per Cardiology and hospitalist team. History of Present Illness History of Present Illness Consult date: 08/16/24 Chief complaint: heart failure exacerbation, hypoxia Narrative: 08/16/2024: This is a new pulmonary consult for obstructive sleep apnea 49-year-old with a history of morbid obesity, chronic venous stasis versus lymphedema, hypertension, obstructive sleep apnea. Patient tells me she had obstructive sleep apnea diagnosed approximately 13 years ago and was prescribed a positive airway pressure device at that time. She wore for few years but then stopped. When she did wear it she says that it may be helped her breathe better. Patient had a in lab split night sleep study on 07/13/2024 with an AHI of 18 and hypoxemia. Recommended she be treated with BiPAP 18/8 with 3 L bleed in. Patient was followed in the pulmonary lab and a call was made to her to discuss these results and a voicemail was left but she never called the clinic to discuss the results. Patient presented to the emergency department on 08/07/2024 with shortness of breath and pedal edema. ABG on 3 L nasal cannula 7.38/50.7/85. Patient was diagnosed with congestive heart failure and treated with Lasix IV. She was initiated on BiPAP 18/8 with 3 L bleed in. patient improved with IV diuresis and her weight has decreased from 145 kg on admission to 117 kg. She has diuresed a total of 16 L. 08/14/2024: Patient had an overnight oximetry on BiPAP 18/8 with 1 L bleed in. Recording duration 4 hours and 40 minutes. Average saturation 82%. Low saturation 68%. Time with saturation less than or equal to 88% was 264 minutes. Oxygen desaturation index 40.9. 08/15/2024: Patient had a home O2 assessment demonstrating she needed 1 L at rest and 2 L with activity. 08/16/2024: the parents are in the room. The parents state that she lives with them and that she snores, has witnessed apneas and stops breathing and sometimes turns blue at night. The patient denies any morning headaches. Overall the patient is much improved and currently she is on 1 L nasal cannula saturations 99%. I decreased her to room air and her saturations were 93 after 13 minutes. KANE: 08/15/24: Summary 1. This was a limited study for bubble study only. 2. Intact interatrial septum visualized by agitated saline imaging. Negative bubble study. 08/09/24 Echo Summary 1. Complete two-dimensional, color flow and Doppler transthoracic echocardiogram is performed. 2. Left ventricular chamber dimension is normal. 3. Left ventricular wall thickness is normal. 4. Left ventricular systolic function is mildly reduced with a visually estimated ejection fraction of 50-55%. 5. Left ventricular septal wall motion shows abnormal septal motion due to RV pressure and volume load. 6. Right ventricular chamber dimension is enlarged. 7. Right ventricular systolic function is reduced. 8. Right atrial chamber dimension is enlarged. 9. Possible Patent foramen ovale (PFO) on color flow imaging. 10. There is moderate tricuspid valve regurgitation. 11. Mild pulmonary hypertension, estimated pulmonary arterial systolic pressure is 52 mmHg. 12. Dilated inferior vena cava with <50% collapse upon inspiration consistent with elevated right atrial pressure, 15 mmHg. Recommendations * Consider bubble study to further evaluate PFO. Right Ventricle Right ventricular chamber dimension is enlarged. Right ventricular systolic function is reduced. Left Atria Left atrial chamber dimension is normal. Right Atria Right atrial chamber dimension is enlarged. Atrial Septum Possible Patent foramen ovale (PFO) on color flow imaging. 07/24/24: split night sleep study assessment and planIn the baseline portion of the study, the patient had an overall AHI of 18 with desaturation down to 41%. This is consistent with moderate sleep apnea. The patient was started on CPAP 5 cm H2O and titrated to BPAP 18/8 cm H2O with 2 lpm of supplemental oxygen. while the patient's sleep apnea resolved on the final pressure settings during the study, her oxygen saturation was still persistently below 90%. I recommend that the patient be prescribed BPAP 18/8 cm H2O with 3 lpm of supplemental oxygen, size small F&P Eson nasl mask, BPAP filters/tubing and heated humidity. This should be used with all episodes of sleep.? Compliance should be reviewed within 31-90 days of starting therapy for usage greater than 4 hours per night greater than 70% of the nights. The patient should be asked about symptoms such as?excessive daytime sleepiness, quality of sleep, decreased nocturia, increased?mental functioning such as memory, mood, and concentration. Review of Systems Constitutional: Constitutional: Reports no additional constitutional complaints Eyes: Eyes: Reports no additional eye complaints ENT: Reports system reviewed and no additional complaints, except as documented Cardiovascular: Cardiovascular: Reports no additional cardiovascular complaints Respiratory: Respiratory: Reports no additional respiratory complaints Gastrointestinal: Gastrointestinal: Reports no additional gastrointestinal complaints Musculoskeletal: Musculoskeletal: Reports no additional musculoskeletal complaints Neurologic: Reports system reviewed and no additional complaints, except as documented Psychiatric: Psychiatric: Reports no additional psychiatric complaints Endocrine: Endocrine: Reports no additional endocrine complaints Hematologic/Lymphatic: Hematologic/Lymphatic: Reports no additional hematologic/lymphatic complaints Allergic/Immunologic: Allergic/Immunologic: Reports no additional allergic/immunologic complaints [facility] Past Medical History Medical History (Updated 08/15/24 @ 18:31 by Luke Dumont, BRITTA) Morbid obesity with body mass index (BMI) greater than or equal to 50 BMI 60.6 08/07/2024 Restrictive lung disease secondary to obesity Noted to be severe on PFTs from 2014 Moderate tricuspid regurgitation Diastolic heart failure Chronic hypercapnic respiratory failure CHF (congestive heart failure) Lymphedema of both lower extremities Chronic venous insufficiency of lower extremity COVID-[address] (~2018) Essential (primary) hypertension (Unknown) SLE (systemic lupus erythematosus) (Unknown) STAS (obstructive sleep apnea) Polysomnogram 06/2024 demonstrated moderate obstructive sleep apnea with recommended BiPAP of 18/8 with 3 L of bleed in O2 Malignant melanoma of upper back (~05/2019) Surgical History Surgical History History of removal of Port-a-Cath 2020 Eek teeth removed (~1989) Hx of section (~2000) History of skin surgery melanoma - 06/22/2019 Family History Family History Father Hypertension Sibling Lupus Social History Social History (Updated 08/08/24 @ 07:16 by eLona Tyler DO) Social History: Patient lives at home with her parents. She works for [employer]. She has 1 daughter who was in her 20. She ambulates without assistance. She is a lifelong nonsmoker. She occasionally drinks alcohol once every couple months. She denies illicit substance use. Code status: Full code Surrogate decision maker: Daughter Smoking status: Never smoker Second hand tobacco smoke exposure: No Alcohol intake: current Alcohol use details: Just every once in awhile Substance use: never Substance use type: does not use Do You Feel Safe in your Home?: Yes Lack of Transportation: No Lack of Food: Never True Current Housing: I Have Housing Concerned About Future Housing: No Difficulty Paying Gas/Electric Bills: YES Difficulty Paying for Meds: No Currently Unemployed: No Education: Associate Degree Difficulty w/ Childcare or Family Care: No Living arrangements: with family Gender identity (if verbalized by the patient): Female Sexual Orientation (if Verbalized by the Patient): Straight or Heterosexual Spiritual care concerns: No Meds Home Medications and Allergies Home Medications ?Medication ?Instructions ?Recorded ?Confirmed ?Type hydroxychloroquine 200 mg tablet 200 mg PO BID 07/17/19 08/07/24 History cyanocobalamin (vitamin B-12) 1,000 mcg PO DAILY 03/18/21 08/07/24 History 1,000 mcg tablet (Vitamin B-12) empagliflozin 10 mg tablet 10 mg PO DAILY #30 tabs 03/27/24 08/07/24 Rx (Jardiance) albuterol sulfate 90 mcg/actuation 2 puff inhalation PRN PRN 05/10/24 08/07/24 Rx aerosol inhaler (Proventil HFA) Shortness Of Breath Or Wheezing #8.5 grams spironolactone 25 mg tablet 12.5 mg (1/2 x 25 mg) PO DAILY #45 06/26/24 08/07/24 Rx tabs furosemide 40 mg tablet 40 mg PO DAILY #90 tabs 07/31/24 08/07/24 Rx Allergies Allergy/AdvReac Type Severity Reaction Status Date / Time Penicillins AdvReac Mild Rash Verified 08/07/24 19:17 Sulfa (Sulfonamide AdvReac Mild Rash Verified 08/07/24 19:17 Antibiotics) Vital Signs Vital Signs - 24 hr 08/15/24 20:00 08/15/24 20:00 08/15/24 21:15 Temperature 36.5 C Pulse Rate 90 Respiratory Rate 18 Blood Pressure 103/64 Pulse Oximetry 97 91 96 Oxygen Delivery Nasal Cannula Nasal Cannula Oxygen Flow Rate 1 1 08/15/24 21:15 08/16/24 00:00 08/16/24 04:00 Temperature 36.5 C 36.6 C Pulse Rate 90 89 79 Respiratory Rate 20 18 20 Blood Pressure 96/53 L 108/55 L Pulse Oximetry 96 96 97 Oxygen Delivery BiPAP Oxygen Flow Rate 08/16/24 08:00 08/16/24 14:00 Temperature 37.3 C Pulse Rate 81 Respiratory Rate 18 Blood Pressure 112/60 Pulse Oximetry 97 99 Oxygen Delivery Nasal Cannula Oxygen Flow Rate 1 Exam Const: General: cooperative and comfortable Orientation/consciousness: oriented to person, oriented to place and oriented to time Other: obese HENMT: Head: normal to inspection Ears: hearing grossly normal bilaterally Eyes: General: appearance normal, both eyes and all related structures Neck: Neck: normal visual inspection Chest: Chest palpation & inspection: normal inspection of the chest Resp: Effort & Inspection: normal respiratory effort and able to speak in complete sentences Auscultation: no crackles, no rales, no rhonchi, no wheezes and diminished lung sounds Other: obese Cardio: Jugular venous distension: no JVD GI: Inspection: normal to inspection GI Palp: No abdominal tenderness Skin: General skin exam: normal color Neuro: General: oriented to person, oriented to place and oriented to time Extrem: General: normal to inspection and edema Psych: Appearance: grossly normal Results Laboratory Findings 08/13/24 05:16 08/16/24 05:04 ABG, PT/INR, D-dimer: ABG ABG pH 7.375 (7.350-7.450) 08/07/24 14:55 ABG pCO2 50.7 mmHg (35.0-45.0) H 08/07/24 14:55 ABG pO2 84.7 mmHg (80.0-100.0) 08/07/24 14:55 ABG O2 Saturation 96.0 % (95.0-100.0) 08/07/24 14:55 PT/INR, D-dimer PT 19.6 Seconds (11.1-14.7) H 08/07/24 14:39 INR 1.6 08/07/24 14:39 Abnormal lab findings: Abnormal Labs 08/07/24 08/07/24 08/08/24 14:39 14:55 05:25 WBC RBC 5.73 H Hgb 11.6 L MCV 77.1 L MCH 22.0 L 22.3 L MCHC 28.5 L 27.8 L RDW 20.8 H 20.2 H MPV 10.7 H 11.1 H Immature Gran % (Auto) 1.3 H Neut % (Auto) 75.0 H Lymph % (Auto) 10.5 L [place] % (Auto) 10.6 H Eos % (Auto) Lymph # (Auto) [place] # (Auto) 1.0 H Abs Immat Gran (auto) 0.12 H Absolute Neuts (auto) 7.1 H Absolute Nucleated RBC 0.200 H Nucleated RBC % 2.1 H PT 19.6 H ABG pCO2 50.7 H ABG HCO3 29.0 H Sodium 135 L Chloride Carbon Dioxide 31 H 36 H Anion Gap 2 L BUN 67 H D 60 H Creatinine 1.40 H 1.20 H Estimated GFR 40 L 48 L Calcium 8.2 L 7.9 L Total Bilirubin 1.7 H 1.4 H AST 168 H 151 H ALT 194 H 189 H Alkaline Phosphatase 135 H NT-Pro-B Natriuret Pep 2720 H Total Protein Albumin 3.4 L 2.9 L 08/09/24 08/10/24 08/10/24 06:52 05:08 17:22 WBC RBC Hgb 11.6 L 11.3 L MCV MCH 22.3 L 22.4 L MCHC 27.8 L 27.2 L RDW 19.9 H 19.9 H MPV 11.0 H 11.6 H Immature Gran % (Auto) 0.7 H Neut % (Auto) 73.9 H Lymph % (Auto) 12.8 L 11.9 L [place] % (Auto) 9.2 H 8.6 H Eos % (Auto) 4.5 H Lymph # (Auto) 0.70 L 0.64 L [place] # (Auto) Abs Immat Gran (auto) 0.04 H Absolute Neuts (auto) Absolute Nucleated RBC 0.030 H 0.020 H Nucleated RBC % 0.5 H 0.4 H PT ABG pCO2 ABG HCO3 Sodium Chloride 95 L Carbon Dioxide > 40 H 37 H > 40 H Anion Gap 1 L BUN 42 H D 34 H 34 H Creatinine Estimated GFR Calcium 8.0 L 8.0 L 8.1 L Total Bilirubin AST 115 H 73 H ALT 179 H 134 H Alkaline Phosphatase NT-Pro-B Natriuret Pep Total Protein 6.0 L Albumin 2.9 L 2.9 L 08/11/24 08/11/24 08/12/24 04:51 17:01 04:48 WBC 4.2 L 4.1 L RBC Hgb 11.2 L 11.0 L MCV MCH 22.4 L 21.9 L MCHC 27.7 L 26.5 L RDW 19.6 H 19.7 H MPV 11.2 H Immature Gran % (Auto) Neut % (Auto) Lymph % (Auto) 15.1 L 15.8 L [place] % (Auto) 9.1 H Eos % (Auto) 5.7 H 4.9 H Lymph # (Auto) 0.64 L 0.64 L [place] # (Auto) Abs Immat Gran (auto) Absolute Neuts (auto) Absolute Nucleated RBC Nucleated RBC % PT ABG pCO2 ABG HCO3 Sodium Chloride 95 L 94 L 95 L Carbon Dioxide > 40 H > 40 H > 40 H Anion Gap BUN 29 H 28 H 24 H Creatinine Estimated GFR Calcium 8.1 L 8.2 L 8.3 L Total Bilirubin AST 49 H 48 H ALT 101 H 83 H Alkaline Phosphatase NT-Pro-B Natriuret Pep Total Protein Albumin 2.9 L 3.1 L 08/13/24 08/14/24 08/15/24 05:16 06:34 04:47 WBC 3.1 L RBC Hgb 11.2 L MCV MCH 22.1 L MCHC 27.2 L RDW 19.5 H MPV 11.7 H Immature Gran % (Auto) Neut % (Auto) Lymph % (Auto) [place] % (Auto) Eos % (Auto) 4.9 H Lymph # (Auto) 0.65 L [place] # (Auto) Abs Immat Gran (auto) Absolute Neuts (auto) Absolute Nucleated RBC Nucleated RBC % PT ABG pCO2 ABG HCO3 Sodium 135 L Chloride 96 L 94 L 91 L Carbon Dioxide > 40 H > 40 H > 40 H Anion Gap BUN 25 H 21 H 26 H Creatinine Estimated GFR Calcium Total Bilirubin AST 50 H ALT 70 H Alkaline Phosphatase NT-Pro-B Natriuret Pep Total Protein Albumin 3.2 L 08/16/24 05:04 WBC RBC Hgb MCV MCH MCHC RDW MPV Immature Gran % (Auto) Neut % (Auto) Lymph % (Auto) [place] % (Auto) Eos % (Auto) Lymph # (Auto) [place] # (Auto) Abs Immat Gran (auto) Absolute Neuts (auto) Absolute Nucleated RBC Nucleated RBC % PT ABG pCO2 ABG HCO3 Sodium Chloride 93 L Carbon Dioxide > 40 H Anion Gap BUN 23 H Creatinine Estimated GFR Calcium Total Bilirubin AST ALT Alkaline Phosphatase NT-Pro-B Natriuret Pep Total Protein Albumin Diagnostic Findings Additional studies: ITS Impressions Chest X-Ray 08/07/24 15:18 IMPRESSION: Mild interstitial edema versus artifact from crowding. Mild bibasilar plexus/scar. Chronic right hemidiaphragm elevation. Venous Doppler Study 08/07/24 17:15 IMPRESSION: Limited visualization of the lower extremity veins abdomen below the level of the knees as detailed above. No DVT detected in the adequately visualized veins. Abdomen Ultrasound 08/08/24 15:34 IMPRESSION: normal limited abdominal ultrasound.
[2024-08-17 06:00] VITALS: BP 98/50; PULSE 76; RESP 18; TEMP 36.7; O2SAT 95
[2024-08-17 08:00] VITALS: O2SAT 95
[2024-08-17 08:03] LABS: Eosinophils Absolute Auto 0.1 K/mm3 (0-0.3); Eosinophils Percent Auto 3.5 % (0-4.4); Hematocrit 43.7 % (37.0-47.0); Hemoglobin 12.3 g/dL (12.0-15.0); Immature Granulocyte Absolute 0.01 K/mm3 (0.00-0.031); Immature Granulocyte Percent A 0.3 % (0-0.5); Immature Platelet Fraction Pct 7.3 % (0.9-11.2); Lymphocytes Percent Auto 24.3 % (18.3-44.2); Mean Corpuscular HGB Conc 28.1 g/dl (32-36); Mean Corpuscular Hemoglobin 22.7 pg (26-34); Mean Corpuscular Volume 80.6 fl (80-100); Monocytes Absolute Auto 0.4 K/mm3 (0.1-0.6); Monocytes Percent Auto 13.2 % (2.6-8.5); Neutrophils Absolute Auto 1.7 K/mm3 (1.3-6.7); Neutrophils Percent Auto 57.7 % (45.5-73.1); Platelet Count Result 161 k/mm3 (150-375); Red Blood Count 5.42 M/mm3 (4.2-5.4); Red Cell Distribution Width 20.2 % (11.5-14.5); White Blood Count 2.9 K/mm3 (4.5-10.0)
[2024-08-17 08:15] LABS: Alanine Aminotransferase 50 U/L (6-35); Albumin Level 3.5 g/dL (3.5-5.1); Alkaline Phosphatase 104 U/L (38-126); Aspartate Amino Transferase 52 U/L (14-36); Blood Urea Nitrogen 25 mg/dL (7-17); Calcium 8.7 mg/dL (8.4-10.2); Carbon Dioxide > 40 mmol/L (22-30); Chloride 95 mmol/L (98-107); Estimated CRCL calculation 64 ml/min; Estimated Glomerular Filt Rate 53; Glucose 89 mg/dL (65-110); Magnesium 2.1 mg/dL (1.6-2.3); Potassium 4.2 mmol/L (3.4-5.0); Sodium 137 mmol/L (137-145)
[2024-08-17 08:21] LABS: NT Pro B Type Natriuretic Pept 140 pg/mL (19.9-100)
[2024-08-17 08:38] LABS: Anisocytosis 1+; Hypochromasia 1+; Platelet Estimate Adequate (Adequate); Schistocytes None Seen
[2024-08-17] MEDS: SACUBITRIL/VALSARTAN 24-26 MG TABLET 1 TAB PO ×2 (08:49→20:19)
[2024-08-17] MEDS: HYDROXYCHLOROQUINE SULFATE 200 MG TABLET PO ×2 (08:49→20:19)
[2024-08-17] MEDS: CYANOCOBALAMIN 1,000 MCG TABLET 1000 MCG PO (08:49)
[2024-08-17] MEDS: ENOXAPARIN 40 MG/0.4 ML SYRINGE SUB-Q ×2 (08:49→20:19)
[2024-08-17] MEDS: FUROSEMIDE 80 MG TABLET PO ×2 (08:49→17:09)
[2024-08-17] MEDS: POTASSIUM CHLORIDE 20 MEQ ER TABLET PO (08:49)
[2024-08-17] MEDS: EMPAGLIFLOZIN 10 MG TABLET PO (08:49)
[2024-08-17] MEDS: SPIRONOLACTONE 25 MG TABLET PO (08:50)
--- NOTE | 2024-08-17 09:35 | P.PNPL_ITS ---
Progress Note: A&P Assessment and Plan (1) STAS (obstructive sleep apnea): Code(s): G47.33 - Obstructive sleep apnea (adult) (pediatric) Status: Acute Assessment and Plan: Patient tells me she had obstructive sleep apnea diagnosed approximately 13 years ago and was prescribed a positive airway pressure device at that time. She wore for few years but then stopped. When she did wear it she says that it may be helped her breathe better. TSH on 08/07/2024 was 1.48. Patient had a in lab split night sleep study on 07/13/2024 with an AHI of 18 and hypoxemia. Recommended she be treated with BiPAP 18/8 with 3 L bleed in. [employer] informed us today that the insurance denied BiPAP 18/8 as they said that her apnea-hypopnea index improved on CPAP 7. I reviewed this study with a sleep specialist and the patient was on CPAP 7 for 15 minutes with no REM at 1 L bleed in. Her AHI was 4.1 but this was not an adequate amount of time to determine that this was an optimal setting. Plan: Tonight the patient will wear auto PAP 8-18 with 2 L bleed in and we will perform an overnight oximetry. Will discuss these results and the sleep study with a DME and insurance company on 08/17/2024 in order to provide optimal machine and settings for the patient's obstructive sleep apnea. 08/17/2024: Patient tells me she is breathing at her baseline with no respiratory distress, cough or phlegm production. White blood cell count is 2.9, creatinine 1.0. BNP improved from 2720 on 08/07/2020 4-140 today. Her weight is 114.4 kg. Urine output was not accurately measured. Patient had an overnight oximetry on auto PAP 8-18 with 2 L bleed in. Recording duration 6 hours and 39 minutes. Average saturation 92%. Low saturation 63%. Time with saturation less than or equal to 88% was 42 minutes. Oxygen desaturation index 10.9. On review of the tracing there are multiple sharp spikes of desaturations associated with increase of heart rate consistent with obstructive events. Plan: Patient has obstructive sleep apnea does not appear to be controlled with auto PAP 8-18 and 2 L bleed in. Will discuss these results with sleep specialist and respiratory floor care specialist in order to provide recommendations to [employer] that would then be presented to the insurance company. May require peer to peer review process with the insurance company. Further recommendations to follow. Discussed with Tejal Garzon. Will follow with you. (2) CHF (congestive heart failure): Qualifiers: Heart failure chronicity: acute on chronic Heart failure type: diastolic Qualified Code(s): I50.33 - Acute on chronic diastolic (congestive) heart failure Code(s): I50.9 - Heart failure, unspecified Status: Acute Assessment and Plan: Patient followed by Cardiology and has diuresed 16 L since admission. Currently the patient is on Lasix 80 mg p.o. b.i.d., Jardiance 10 q.day, spironolactone 25 q.day, Entresto 24-26 q.12 hours. Plan: Continue optimization of her congestive heart failure per Cardiology and hospitalist team. 08/17/2024: BNP improved from 2720 on 08/07/2020 4-140 today. Her weight is 114.4 kg. Urine output was not accurately measured. Plan: Management of congestive heart failure and fluid overload per Cardiology and hospitalist teams. Subjective Date/time seen: 08/17/24 09:35 Interval history: 08/16/2024: This is a new pulmonary consult for obstructive sleep apnea 49-year-old with a history of morbid obesity, chronic venous stasis versus lymphedema, hypertension, obstructive sleep apnea. Patient tells me she had obstructive sleep apnea diagnosed approximately 13 years ago and was prescribed a positive airway pressure device at that time. She wore for few years but then stopped. When she did wear it she says that it may be helped her breathe better. Patient had a in lab split night sleep study on 07/13/2024 with an AHI of 18 and hypoxemia. Recommended she be treated with BiPAP 18/8 with 3 L bleed in. Patient was followed in the pulmonary lab and a call was made to her to discuss these results and a voicemail was left but she never called the clinic to discuss the results. Patient presented to the emergency department on 08/07/2024 with shortness of breath and pedal edema. ABG on 3 L nasal cannula 7.38/50.7/85. Patient was diagnosed with congestive heart failure and treated with Lasix IV. She was initiated on BiPAP 18/8 with 3 L bleed in. patient improved with IV diuresis and her weight has decreased from 145 kg on admission to 117 kg. She has diuresed a total of 16 L. 08/14/2024: Patient had an overnight oximetry on BiPAP 16/04 with 1 L bleed in. Recording duration 4 hours and 40 minutes. Average saturation 82%. Low saturation 68%. Time with saturation less than or equal to 88% was 264 minutes. Oxygen desaturation index 40.9. 08/15/2024: Patient had a home O2 assessment demonstrating she needed 1 L at rest and 2 L with activity. 08/16/2024: the parents are in the room. The parents state that she lives with them and that she snores, has witnessed apneas and stops breathing and sometimes turns blue at night. The patient denies any morning headaches. Overall the patient is much improved and currently she is on 1 L nasal cannula saturations 99%. I decreased her to room air and her saturations were 93 after 13 minutes. 08/17/2024: Patient tells me she is breathing at her baseline with no respiratory distress, cough or phlegm production. White blood cell count is 2.9, creatinine 1.0. BNP improved from 2720 on 08/07/2020 4-140 today. Her weight is 114.4 kg. Urine output was not accurately measured. Patient had an overnight oximetry on auto PAP 04-16 with 2 L bleed in. Recording duration 6 hours and 39 minutes. Average saturation 92%. Low saturation 63%. Time with saturation less than or equal to 88% was 42 minutes. Oxygen desaturation index 10.9. On review of the tracing there are multiple sharp spikes of desaturations associated with increase of heart rate consistent with obstructive events. KANE: 08/15/24: Summary 1. This was a limited study for bubble study only. 2. Intact interatrial septum visualized by agitated saline imaging. Negative bubble study. 08/09/24 Echo Summary 1. Complete two-dimensional, color flow and Doppler transthoracic echocardiogram is performed. 2. Left ventricular chamber dimension is normal. 3. Left ventricular wall thickness is normal. 4. Left ventricular systolic function is mildly reduced with a visually estimated ejection fraction of 50-55%. 5. Left ventricular septal wall motion shows abnormal septal motion due to RV pressure and volume load. 6. Right ventricular chamber dimension is enlarged. 7. Right ventricular systolic function is reduced. 8. Right atrial chamber dimension is enlarged. 9. Possible Patent foramen ovale (PFO) on color flow imaging. 10. There is moderate tricuspid valve regurgitation. 11. Mild pulmonary hypertension, estimated pulmonary arterial systolic pressure is 52 mmHg. 12. Dilated inferior vena cava with <50% collapse upon inspiration consistent with elevated right atrial pressure, 15 mmHg. Recommendations * Consider bubble study to further evaluate PFO. Right Ventricle Right ventricular chamber dimension is enlarged. Right ventricular systolic function is reduced. Left Atria Left atrial chamber dimension is normal. Right Atria Right atrial chamber dimension is enlarged. Atrial Septum Possible Patent foramen ovale (PFO) on color flow imaging. 07/24/24: split night sleep study assessment and planIn the baseline portion of the study, the patient had an overall AHI of 18 with desaturation down to 41%. This is consistent with moderate sleep apnea. The patient was started on CPAP 5 cm H2O and titrated to BPAP 18/8 cm H2O with 2 lpm of supplemental oxygen. while the patient's sleep apnea resolved on the final pressure settings during the study, her oxygen saturation was still persistently below 90%. I recommend that the patient be prescribed BPAP 18/8 cm H2O with 3 lpm of supplemental oxygen, size small F[employer]P Eson nasl mask, BPAP filters/tubing and heated humidity. This should be used with all episodes of sleep.? Compliance should be reviewed within 31-90 days of starting therapy for usage greater than 4 hours per night greater than 70% of the nights. The patient should be asked about symptoms such as?excessive daytime sleepiness, quality of sleep, decreased nocturia, increased?mental functioning such as memory, mood, and concentration. Review of Systems Constitutional: Constitutional: Reports no additional constitutional complaints Eyes: Eyes: Reports no additional eye complaints ENT: Reports system reviewed and no additional complaints, except as documented Cardiovascular: Cardiovascular: Reports no additional cardiovascular complaints Respiratory: Respiratory: Reports no additional respiratory complaints Gastrointestinal: Gastrointestinal: Reports no additional gastrointestinal complaints Musculoskeletal: Musculoskeletal: Reports no additional musculoskeletal complaints Neurologic: Reports system reviewed and no additional complaints, except as documented Psychiatric: Psychiatric: Reports no additional psychiatric complaints Endocrine: Endocrine: Reports no additional endocrine complaints Hematologic/Lymphatic: Hematologic/Lymphatic: Reports no additional hematologic/lymphatic complaints Allergic/Immunologic: Allergic/Immunologic: Reports no additional allergic/immunologic complaints Exam Const: General: cooperative and comfortable Orientation/consciousness: oriented to person, oriented to place and oriented to time Other: obese HENMT: Head: normal to inspection Ears: hearing grossly normal bilaterally Eyes: General: appearance normal, both eyes and all related structures Neck: Neck: normal visual inspection Chest: Chest palpation & inspection: normal inspection of the chest Resp: Effort & Inspection: normal respiratory effort and able to speak in complete sentences Auscultation: no crackles, no rales, no rhonchi, no wheezes and diminished lung sounds Other: obese Cardio: Jugular venous distension: no JVD GI: Inspection: normal to inspection Skin: General skin exam: normal color Neuro: General: oriented to person, oriented to place and oriented to time Extrem: General: normal to inspection and edema Psych: Appearance: grossly normal Objective Data Vital Signs Vital Signs: Vital Signs - 24 hr 08/16/24 14:00 08/16/24 20:00 08/16/24 22:00 Temperature 37.3 C 36.4 C Pulse Rate 81 82 Respiratory Rate 18 18 Blood Pressure 112/60 107/58 L Pulse Oximetry 99 99 91 Oxygen Delivery Nasal Cannula Oxygen Flow Rate 1 Fraction of Inspired Oxygen 08/16/24 22:35 08/16/24 23:08 08/17/24 06:00 Temperature 36.7 C Pulse Rate 89 76 Respiratory Rate 21 H 18 Blood Pressure 98/50 L Pulse Oximetry 96 96 95 Oxygen Delivery Autopap BiPAP Oxygen Flow Rate 2 Fraction of Inspired Oxygen Intake/Output Intake/Output: Intake & Output 08/14/24 08/15/24 08/16/24 08/17/24 23:59 23:59 23:59 23:59 Intake Total 112 070 4894 Output Total 4000 2750 Balance -3100 -1950 1940 Meds/Results Medications: Active Medications Generic Name Dose Route Start Last Admin Trade Name Freq PRN Reason Stop Dose Admin Acetaminophen 650 mg 08/07/24 16:28 Acetaminophen 325 Mg Tablet PO Q4H PRN Mild Pain (1-3) or Fever Hydrocodone Bitart/Acetaminophen 1 tab 08/07/24 16:28 Hydrocodone/Acetaminophen (*Crx) 5-325 Mg Tablet PO Q4H PRN Pain Rated 4-6 Cyanocobalamin 1,000 mcg 08/08/24 09:00 08/17/24 08:49 Cyanocobalamin 1,000 Mcg Tablet PO 1,000 mcg DAILY DELROY Administration Empagliflozin 10 mg 08/08/24 09:00 08/17/24 08:49 Empagliflozin 10 Mg Tablet PO 10 mg DAILY DELROY Administration Enoxaparin Sodium 40 mg 08/07/24 21:00 08/17/24 08:49 Enoxaparin 40 Mg/0.4 Ml Syringe SUB-Q 40 mg Q12HR DELROY Administration Furosemide 80 mg 08/14/24 17:00 08/17/24 08:49 Furosemide 80 Mg Tablet PO 80 mg BID DELROY Administration Hydroxychloroquine Sulfate 200 mg 08/08/24 09:00 08/17/24 08:49 Hydroxychloroquine Sulfate 200 Mg Tablet PO 200 mg Q12HR DELROY Administration Miscellaneous Information 1 each 08/17/24 00:01 [place] Needs To Be Renewed Or It Will Automatically Discontinue. XX 09/16/24 00:00 CLARIFY DELROY Ondansetron HCl 4 mg 08/07/24 16:28 Ondansetron Inj 4 Mg/2 Ml Vial IV PUSH Q4H PRN Nausea Perflutren Lipid Microsphere 0 ml 08/15/24 09:07 Perflutren Lipid Microspheres 1.5 Ml Vial Diluted To 10 Ml Total Volume IV PUSH 08/18/24 09:07 ONCE PRN adequate visualization Protocol Potassium Chloride 20 meq 08/13/24 09:00 08/17/24 08:49 Potassium Chloride 20 Meq Er Tablet PO 20 meq DAILY DELROY Administration Sacubitril/Valsartan 1 tab 08/14/24 21:00 08/17/24 08:49 Sacubitril/Valsartan 24-26 Mg Tablet PO 1 tab Q12HR DELROY Administration Spironolactone 25 mg 08/11/24 09:00 08/17/24 08:50 Spironolactone 25 Mg Tablet PO 25 mg QAM DELROY Administration Radiology Results: ITS Impressions Chest X-Ray 08/07/24 15:18 IMPRESSION: Mild interstitial edema versus artifact from crowding. Mild bibasilar plexus/scar. Chronic right hemidiaphragm elevation. Venous Doppler Study 08/07/24 17:15 IMPRESSION: Limited visualization of the lower extremity veins abdomen below the level of the knees as detailed above. No DVT detected in the adequately visualized veins. Abdomen Ultrasound 08/08/24 15:34 IMPRESSION: normal limited abdominal ultrasound. Labs Labs: Laboratory Results - last 24 hr 08/17/24 07:56 WBC 2.9 L RBC 5.42 H Hgb 12.3 Hct 43.7 MCV 80.6 MCH 22.7 L MCHC 28.1 L RDW 20.2 H Plt Count 161 MPV TNP Immature Gran % (Auto) 0.3 Neut % (Auto) 57.7 Lymph % (Auto) 24.3 [place] % (Auto) 13.2 H Eos % (Auto) 3.5 Baso % (Auto) 1.0 Lymph # (Auto) 0.70 L [place] # (Auto) 0.4 Eos # (Auto) 0.1 Baso # (Auto) 0.0 Abs Immat Gran (auto) 0.01 Absolute Neuts (auto) 1.7 Absolute Nucleated RBC 0.000 Nucleated RBC % 0.0 Platelet Estimate Adequate % Immature Plt Fraction 7.3 Hypochromasia 1+ Anisocytosis 1+ Schistocytes None seen Sodium 137 Potassium 4.2 Chloride 95 L Carbon Dioxide > 40 H Anion Gap BUN 25 H Creatinine 1.10 H Estim Creat Clear Calc 64 Estimated GFR 53 L Glucose 89 Calcium 8.7 Magnesium 2.1 Total Bilirubin 1.0 AST 52 H ALT 50 H Alkaline Phosphatase 104 NT-Pro-B Natriuret Pep 140 H Total Protein 8.0 Albumin 3.5
--- NOTE | 2024-08-17 10:42 | PCRCNOTE ---
Working with patient's DME company, [email or web address], to obtain approval for a home bipap device.
--- NOTE | 2024-08-17 10:52 | P.PNIM_ITS ---
Progress Note: A&P Assessment and Plan (1) CHF (congestive heart failure): Qualifiers: Heart failure chronicity: acute on chronic Heart failure type: diastolic Qualified Code(s): I50.33 - Acute on chronic diastolic (congestive) heart failure Code(s): I50.9 - Heart failure, unspecified Status: Acute Assessment and Plan: Previous ECHO from February shows EF of 55-60% and some diastolic dysfunction. Currently with evidence of Volume overload per CXR and Physical Exam. 08/10 TTE: 1. Complete two-dimensional, color flow and Doppler transthoracic echocardiogram is performed. 2. Left ventricular chamber dimension is normal. 3. Left ventricular wall thickness is normal. 4. Left ventricular systolic function is mildly reduced with a visually estimated ejection fraction of 50-55%. 5. Left ventricular septal wall motion shows abnormal septal motion due to RV pressure and volume load. 6. Right ventricular chamber dimension is enlarged. 7. Right ventricular systolic function is reduced. 8. Right atrial chamber dimension is enlarged. 9. Possible Patent foramen ovale (PFO) on color flow imaging. 10. There is moderate tricuspid valve regurgitation. 11. Mild pulmonary hypertension, estimated pulmonary arterial systolic pressure is 52 mmHg. 12. Dilated inferior vena cava with <50% collapse upon inspiration consistent with elevated right atrial pressure, 15 mmHg. PLAN * Continue Lasix IV. Received 40-40-60 08/10, 60mg BID 08/11. 60/40 08/13, 40/40 08/13. Creatinine and electrolytes stable. Can likely switch to PO soon * BMP, Mag in AM * Cardiology consulted, appreciate recommendations: added metolazone 2.5mg daily 08/13. Plan to start entresto when oral lasix resumed * Monitor labs and VS and trend. * Weight improving with higher dose of lasix and fluid restriction: 130.9 kg on 08/07/24, 137.5 kg 08/09, 138.1kg 08/10. 136.2kg 08/11, 131.1kg 08/12, 129.5kg 08/13 * Fluid restriction 1000ml per day * I&O * Continuing jardiance 08/15: Acute on chronic diastolic congestive heart failure, Entresto started, spironolactone, oral Lasix, fluid restriction 1000 mL per day, Jardiance 08/16/24: Pt tolerating medications well. Continue with current plan as she is making good progress and renal function is tolerating. Monitor labs and VS. 08/17/24: Continue accurate intake and output and daily weight. To date with diuresis the pt has lost 68.2 lbs since being here. Our diuresis is working well and her renal function is tolerating well. We will continue to monitor while here. (2) Acute hypoxic respiratory failure: Code(s): J96.01 - Acute respiratory failure with hypoxia Status: Acute Assessment and Plan: Not using oxygen at home Continue Supplemental oxygen. * Continue supplemental oxygen. * Home oxygen determination ordered. Pt will need it for her BiPap that polysomnography recommends bleed in of 4L but weaning O2 so reasses. Continue BiPap with settings of 18/8;R23;3L. Will need for home * Weaned to RA-1L yesterday and today. * Monitor labs and VS. * Continue treatment of heart failure as noted 08/16/24: Continue treatment with supplemental oxygen. Awaiting BiPap information regarding when she will have it. May discharge as soon as it is available. 08/17/24: Thankful to Dr. Merritt for stepping in and assisting with the testing and interpretation needed to discuss the need with insurance company for BiPap therapy. We will continue to monitor progress and trend labs and vitals. (3) Transaminitis: Code(s): R74.01 - Elevation of levels of liver transaminase levels Status: Acute Assessment and Plan: LFT's elevated on admission. AST/ALT 151/189, Bilirubin 1.4 Suspect elevated 2/2 heart failure, LFT's improving. No nausea or abdominal pain * Improved today: 73/134/Bili 1.3 * 12/10 US RUQ normal (4) Lymphedema of both lower extremities: Code(s): I89.0 - Lymphedema, not elsewhere classified Status: Acute Assessment and Plan: Likely 2/2 fluid overload. Patient reports no edema earlier this month * NORMAN wraps are in place bilaterally and edema is slightly improved as compared to yesterday. * Continue NORMAN wraps and elevation of extremities when in bed * Diuresis as noted 08/16/24: Great improvement from when I saw her one week ago. Continue diuresis and wraps with elevation in bed. 08/17/24: Continued improvement in the appearance of the BLE. (5) STAS (obstructive sleep apnea): Code(s): G47.33 - Obstructive sleep apnea (adult) (pediatric) Status: Acute Assessment and Plan: Obesity contributing or causing STAS and contributes to other medical issues. Untreated STAS also exacerbating heart failure. Tolerating Bipap * Continue BiPap, started in the hospital. Settings of 18/8 w/3L oxygen bled in. * Order placed to set up home BiPap based on Polysomnography recs. * Pt again tolerated BiPap well last evening. She is still awaiting home set up. * Ordered apnea link for tonight to evaluate since weaning oxygen 08/15: Patient was on ApneaLink at 1 liter/minute bleeding in but prior sleep study shows meets 3 L bleed in at night 08/16/24: Awaiting BiPap delivery. 08/17/24: See #2. Pt was tried on Autopap and did not pass. Attempting to reason with insurance company and may require peer to peer with Pulmonology. Dr. Merritt aware and we will follow his lead. Pt otherwise is stable and making strides with regards to her overall oxygenation and how she feels. Would like to see her move in the hallways. VSS (6) Essential (primary) hypertension: Onset Date: Unknown Code(s): I10 - Essential (primary) hypertension Status: Acute Assessment and Plan: Blood pressure low normal, tolerating diuresis. Blood pressure ranging 104-130/53-73 * Diuresing as noted 08/16/24: BP stable. Continue to monitor. 08/17/24: BP soft but stable. [place] 90s-low 100s. Continuing to tolerate current regimen. No changes made. (7) SLE (systemic lupus erythematosus): Onset Date: Unknown Qualifiers: Systemic lupus erythematosus type: unspecified Systemic lupus erythematosus organ involvement: unspecified Qualified Code(s): M32.9 - Systemic lupus erythematosus, unspecified Code(s): M32.9 - Systemic lupus erythematosus, unspecified Status: Chronic Assessment and Plan: * Continue Hydroxychloroquine. 08/16/24: Continue home meds. (8) Morbid obesity: Onset Date: Unknown Code(s): E66.01 - Morbid (severe) obesity due to excess calories Status: Chronic Assessment and Plan: * Recommend lifestyle changes to decrease Cardiovascular risk Time Spent With Patient Time with patient: 15 - 25 minutes Subjective Date/time seen: 08/17/24 10:52 Interval history: Pt was examined today after attempting overnight trial of autopap with results of poor oximetry on 2L. It suggests that pt needs BiPap. Dr. Merritt, Pulmonology is now following and is working with the Respiratory company and [employer] company as well as insurance to approve. Pt has no new complaints and feels well otherwise without any new complaints. She remains stable on her current medication regimens. Review of Systems Review of Systems: All systems reviewed & are unremarkable except as noted in HPI and below Exam Narrative: CONSTITUTIONAL: Obese, female pt sitting at the bedside at this time in no acute distress. She has no acute dyspnea present, appears comfortable and without any distress. HENMT: Atraumatic and normocephalic. MMM and patent oropharynx without any exudate, edema or erythema. EYES: PERRLA, EOMs intact, Conjunctiva are clear NECK: Supple, FROM RESPIRATORY: CTAB in all diaz. CARDIOVASCULAR: RRR, S1 and S2 present. No S3, S4, m,r,g,h or displacement of PMI. GI: Soft, NT, BS+x4, no guarding, rebound : Deferred SKIN: Intact, warm, dry, without lesion NEURO: Grossly intact without any focal abnormalities EXTREMITIES: Full AROM of all four extremities without deficit. PSYCH: A&Ox4, normal affect. Objective Data Vital Signs Vital Signs: Vital Signs - 24 hr 08/16/24 14:00 08/16/24 20:00 08/16/24 22:00 Temperature 99.1 F 97.6 F Pulse Rate 81 82 Respiratory Rate 18 18 Blood Pressure 112/60 107/58 L Pulse Oximetry 99 99 91 Oxygen Delivery Nasal Cannula Oxygen Flow Rate 1 Fraction of Inspired Oxygen 08/16/24 22:35 08/16/24 23:08 08/17/24 06:00 Temperature 98.0 F Pulse Rate 89 76 Respiratory Rate 21 H 18 Blood Pressure 98/50 L Pulse Oximetry 96 96 95 Oxygen Delivery Autopap BiPAP Oxygen Flow Rate 2 Fraction of Inspired Oxygen Intake/Output Intake/Output: Intake & Output 08/14/24 08/15/24 08/16/24 08/17/24 23:59 23:59 23:59 23:59 Intake Total 322 518 5389 240 Output Total 4000 2750 Balance -3100 -1950 1940 240 Meds/Results Medications: Active Medications Generic Name Dose Route Start Last Admin Trade Name Freq PRN Reason Stop Dose Admin Acetaminophen 650 mg 08/07/24 16:28 Acetaminophen 325 Mg Tablet PO Q4H PRN Mild Pain (1-3) or Fever Hydrocodone Bitart/Acetaminophen 1 tab 08/07/24 16:28 Hydrocodone/Acetaminophen (*Crx) 5-325 Mg Tablet PO Q4H PRN Pain Rated 4-6 Cyanocobalamin 1,000 mcg 08/08/24 09:00 08/17/24 08:49 Cyanocobalamin 1,000 Mcg Tablet PO 1,000 mcg DAILY DELROY Administration Empagliflozin 10 mg 08/08/24 09:00 08/17/24 08:49 Empagliflozin 10 Mg Tablet PO 10 mg DAILY DERLOY Administration Enoxaparin Sodium 40 mg 08/07/24 21:00 08/17/24 08:49 Enoxaparin 40 Mg/0.4 Ml Syringe SUB-Q 40 mg Q12HR DELROY Administration Furosemide 80 mg 08/14/24 17:00 08/17/24 08:49 Furosemide 80 Mg Tablet PO 80 mg BID DELROY Administration Hydroxychloroquine Sulfate 200 mg 08/08/24 09:00 08/17/24 08:49 Hydroxychloroquine Sulfate 200 Mg Tablet PO 200 mg Q12HR DELROY Administration Miscellaneous Information 1 each 08/17/24 00:01 [place] Needs To Be Renewed Or It Will Automatically Discontinue. XX 09/16/24 00:00 CLARIFY DELROY Ondansetron HCl 4 mg 08/07/24 16:28 Ondansetron Inj 4 Mg/2 Ml Vial IV PUSH Q4H PRN Nausea Perflutren Lipid Microsphere 0 ml 08/15/24 09:07 Perflutren Lipid Microspheres 1.5 Ml Vial Diluted To 10 Ml Total Volume IV PUSH 08/18/24 09:07 ONCE PRN adequate visualization Protocol Potassium Chloride 20 meq 08/13/24 09:00 08/17/24 08:49 Potassium Chloride 20 Meq Er Tablet PO 20 meq DAILY DELROY Administration Sacubitril/Valsartan 1 tab 08/14/24 21:00 08/17/24 08:49 Sacubitril/Valsartan 24-26 Mg Tablet PO 1 tab Q12HR DELROY Administration Spironolactone 25 mg 08/11/24 09:00 08/17/24 08:50 Spironolactone 25 Mg Tablet PO 25 mg QAM DELROY Administration Radiology Results: ITS Impressions Chest X-Ray 08/07/24 15:18 IMPRESSION: Mild interstitial edema versus artifact from crowding. Mild bibasilar plexus/scar. Chronic right hemidiaphragm elevation. Venous Doppler Study 08/07/24 17:15 IMPRESSION: Limited visualization of the lower extremity veins abdomen below the level of the knees as detailed above. No DVT detected in the adequately visualized veins. Abdomen Ultrasound 08/08/24 15:34 IMPRESSION: normal limited abdominal ultrasound. Labs Labs: Laboratory Results - last 24 hr 08/17/24 07:56 WBC 2.9 L RBC 5.42 H Hgb 12.3 Hct 43.7 MCV 80.6 MCH 22.7 L MCHC 28.1 L RDW 20.2 H Plt Count 161 MPV TNP Immature Gran % (Auto) 0.3 Neut % (Auto) 57.7 Lymph % (Auto) 24.3 [place] % (Auto) 13.2 H Eos % (Auto) 3.5 Baso % (Auto) 1.0 Lymph # (Auto) 0.70 L [place] # (Auto) 0.4 Eos # (Auto) 0.1 Baso # (Auto) 0.0 Abs Immat Gran (auto) 0.01 Absolute Neuts (auto) 1.7 Absolute Nucleated RBC 0.000 Nucleated RBC % 0.0 Platelet Estimate Adequate % Immature Plt Fraction 7.3 Hypochromasia 1+ Anisocytosis 1+ Schistocytes None seen Sodium 137 Potassium 4.2 Chloride 95 L Carbon Dioxide > 40 H Anion Gap BUN 25 H Creatinine 1.10 H Estim Creat Clear Calc 64 Estimated GFR 53 L Glucose 89 Calcium 8.7 Magnesium 2.1 Total Bilirubin 1.0 AST 52 H ALT 50 H Alkaline Phosphatase 104 NT-Pro-B Natriuret Pep 140 H Total Protein 8.0 Albumin 3.5 Quality VTE Prophylaxis VTE prophylaxis: pharmacologic ordered
[2024-08-17 14:00] VITALS: BP 101/62; PULSE 76; RESP 14; TEMP 36.8; O2SAT 98
[2024-08-17 20:00] VITALS: O2SAT 98
[2024-08-17 22:00] VITALS: BP 97/44; PULSE 78; RESP 18; TEMP 36.6; O2SAT 93
[2024-08-17 22:48] VITALS: PULSE 92; RESP 30; O2SAT 96
[2024-08-18] VITALS (9 sets, daily range): BP systolic 94–103; BP diastolic 43–56; PULSE 70–96; RESP 17–18; TEMP 36.3–36.7; O2SAT 85–94
[2024-08-18 06:08] LABS: Basophils Percent Auto 1.1 % (0.2-1.2); Eosinophils Absolute Auto 0.1 K/mm3 (0-0.3); Eosinophils Percent Auto 3.9 % (0-4.4); Hematocrit 45.1 % (37.0-47.0); Hemoglobin 12.6 g/dL (12.0-15.0); Immature Granulocyte Absolute 0.01 K/mm3 (0.00-0.031); Immature Granulocyte Percent A 0.4 % (0-0.5); Lymphocytes Absolute Auto 0.67 K/mm3 (0.9-3.2); Mean Corpuscular HGB Conc 27.9 g/dl (32-36); Mean Corpuscular Hemoglobin 22.6 pg (26-34); Monocytes Absolute Auto 0.3 K/mm3 (0.1-0.6); Monocytes Percent Auto 12.2 % (2.6-8.5); Neutrophils Absolute Auto 1.6 K/mm3 (1.3-6.7); Neutrophils Percent Auto 58.4 % (45.5-73.1); Platelet Count Result 142 k/mm3 (150-375); Red Blood Count 5.57 M/mm3 (4.2-5.4); Red Cell Distribution Width 19.9 % (11.5-14.5); White Blood Count 2.8 K/mm3 (4.5-10.0)
[2024-08-18 06:20] LABS: Alanine Aminotransferase 52 U/L (6-35); Albumin Level 3.6 g/dL (3.5-5.1); Alkaline Phosphatase 104 U/L (38-126); Anion Gap 1 mmol/L (4-12); Aspartate Amino Transferase 53 U/L (14-36); Bilirubin,Total 0.8 mg/dL (0.2-1.3); Blood Urea Nitrogen 30 mg/dL (7-17); Calcium 8.8 mg/dL (8.4-10.2); Carbon Dioxide 39 mmol/L (22-30); Chloride 96 mmol/L (98-107); Estimated CRCL calculation 63 ml/min; Estimated Glomerular Filt Rate 53; Glucose 93 mg/dL (65-110); Magnesium 2.3 mg/dL (1.6-2.3); Sodium 136 mmol/L (137-145)
[2024-08-18 07:02] LABS: Hypochromasia 1+; Large Platelets Present; Platelet Estimate Adequate (Adequate); Schistocytes None Seen
[2024-08-18] MEDS: CYANOCOBALAMIN 1,000 MCG TABLET 1000 MCG PO (08:52)
[2024-08-18] MEDS: SPIRONOLACTONE 25 MG TABLET PO (08:52)
[2024-08-18] MEDS: POTASSIUM CHLORIDE 20 MEQ ER TABLET PO (08:52)
[2024-08-18] MEDS: SACUBITRIL/VALSARTAN 24-26 MG TABLET 1 TAB PO (08:52)
[2024-08-18] MEDS: EMPAGLIFLOZIN 10 MG TABLET PO (08:53)
[2024-08-18] MEDS: HYDROXYCHLOROQUINE SULFATE 200 MG TABLET PO (08:53)
[2024-08-18] MEDS: ENOXAPARIN 40 MG/0.4 ML SYRINGE SUB-Q (08:54)
[2024-08-18] MEDS: FUROSEMIDE 80 MG TABLET PO (10:35)
--- NOTE | 2024-08-18 10:55 | P.PNIM_ITS ---
Progress Note: A&P Assessment and Plan (1) CHF (congestive heart failure): Qualifiers: Heart failure chronicity: acute on chronic Heart failure type: diastolic Qualified Code(s): I50.33 - Acute on chronic diastolic (congestive) heart failure Code(s): I50.9 - Heart failure, unspecified Status: Acute Assessment and Plan: Previous ECHO from February shows EF of 55-60% and some diastolic dysfunction. Had evidence of volume overload on exam but sigificant fluid loss with diuresis. Tolerated aggressive diuresis with 60mg BID IV lasix and decreased slowly. Now on PO meds 08/10 TTE: 1. Complete two-dimensional, color flow and Doppler transthoracic echocardiogram is performed. 2. Left ventricular chamber dimension is normal. 3. Left ventricular wall thickness is normal. 4. Left ventricular systolic function is mildly reduced with a visually estimated ejection fraction of 50-55%. 5. Left ventricular septal wall motion shows abnormal septal motion due to RV pressure and volume load. 6. Right ventricular chamber dimension is enlarged. 7. Right ventricular systolic function is reduced. 8. Right atrial chamber dimension is enlarged. 9. Possible Patent foramen ovale (PFO) on color flow imaging. 10. There is moderate tricuspid valve regurgitation. 11. Mild pulmonary hypertension, estimated pulmonary arterial systolic pressure is 52 mmHg. 12. Dilated inferior vena cava with <50% collapse upon inspiration consistent with elevated right atrial pressure, 15 mmHg. PLAN * BMP in a week * Decreased * Cardiology following, appreciate recommendations * continue metolazone 2.5mg daily, started 08/13 * Continue entresto * Change fluid restriction to 1200ml daily * Decrease lasix from 80mg BID to 60mg PO BID given soft pressures. Creatinine trending up slightly * Monitor labs and VS, I&O * Weight improving with higher dose of lasix and fluid restriction: 130.9 kg on 08/07/24, 137.5 kg 08/09, 138.1kg 08/10. 136.2kg 08/11, 131.1kg 08/12, 129.5kg 08/13, 112.5mg 08/18. * Continuing jardiance (2) Acute hypoxic respiratory failure: Code(s): J96.01 - Acute respiratory failure with hypoxia Status: Acute Assessment and Plan: Not using oxygen at home Continue Supplemental oxygen. * Continue supplemental oxygen. * Home oxygen determination ordered. Pt will need it for her BiPap that polysomnography recommends bleed in of 4L but weaning O2 so reasses. Continue BiPap with settings of 18/8;R23;3L. Will need for home * Weaned to RA-1L yesterday and today. * Monitor labs and VS. * Continue treatment of heart failure as noted * Appreciate pulmonary recommendations and assistance obtaining bipap (3) Transaminitis: Code(s): R74.01 - Elevation of levels of liver transaminase levels Status: Acute Assessment and Plan: LFT's elevated on admission. AST/ALT 151/189, Bilirubin 1.4 Suspect elevated 2/2 heart failure, LFT's improving. No nausea or abdominal pain * Improved: 73/134/Bili 1.3 * 12/10 US RUQ normal (4) Lymphedema of both lower extremities: Code(s): I89.0 - Lymphedema, not elsewhere classified Status: Acute Assessment and Plan: Likely 2/2 fluid overload. Patient reports no edema earlier this month * NORMAN wraps are in place bilaterally and edema is slightly improved as compared to yesterday. * Continue NORMAN wraps and elevation of extremities when in bed * Diuresis as noted (5) STAS (obstructive sleep apnea): Code(s): G47.33 - Obstructive sleep apnea (adult) (pediatric) Status: Acute Assessment and Plan: Obesity contributing or causing STAS and contributes to other medical issues. Untreated STAS also exacerbating heart failure. Tolerating Bipap. Patient was on ApneaLink at 1 liter/minute bleeding in but prior sleep study shows meets 3 L bleed in at night * Continue BiPap, started in the hospital. Settings of 18/8 w/3L oxygen bled in. * Order placed to set up home BiPap based on Polysomnography recs. * Pt again tolerated BiPap well last evening. She is still awaiting home set up. * Ordered apnea link for tonight to evaluate since weaning oxygen (6) Essential (primary) hypertension: Onset Date: Unknown Code(s): I10 - Essential (primary) hypertension Status: Acute Assessment and Plan: Blood pressure low normal, tolerating diuresis. Blood pressure ranging 104-130/53-73 * Diuresing as noted (7) SLE (systemic lupus erythematosus): Onset Date: Unknown Qualifiers: Systemic lupus erythematosus organ involvement: unspecified Systemic lupus erythematosus type: unspecified Qualified Code(s): M32.9 - Systemic lupus erythematosus, unspecified Code(s): M32.9 - Systemic lupus erythematosus, unspecified Status: Chronic Assessment and Plan: * Continue Hydroxychloroquine. (8) Morbid obesity: Onset Date: Unknown Code(s): E66.01 - Morbid (severe) obesity due to excess calories Status: Chronic Assessment and Plan: * Recommend lifestyle changes to decrease Cardiovascular risk Time Spent With Patient Time: 58 minutes Subjective Date/time seen: 08/18/24 10:55 Interval history: Creatinine trending up slightly. Seems euvolemic on exam. Blood pressures soft, 94/50. Weight 112.5kg (down from 112.5kg yesterday) She denies feeling short of breath walking to the bathroom Weaned off oxygen this morning. Pulmonary helping to arrange bipap for home. Changed fluid restriction from 1000 to 1200ml daily and decreased lasix from 80 to 60mg PO BID Review of Systems Review of Systems: 12 systems were reviewed with pertinent positives and negatives per HPI. Except as documented in the HPI, all other systems were reviewed and are negative. All systems reviewed & are unremarkable except as noted in HPI and below Exam Narrative: CONSTITUTIONAL: Obese, female pt sitting at the bedside at this time in no acute distress. She has no acute dyspnea present, appears comfortable and without any distress. HENMT: Atraumatic and normocephalic. MMM and patent oropharynx without any exudate, edema or erythema. EYES: PERRLA, EOMs intact, Conjunctiva are clear NECK: Supple, FROM RESPIRATORY: CTAB in all diaz. CARDIOVASCULAR: RRR, S1 and S2 present. No S3, S4, m,r,g,h or displacement of PMI. GI: Soft, NT, BS+x4, no guarding, rebound : Deferred SKIN: Intact, warm, dry, without lesion NEURO: Grossly intact without any focal abnormalities EXTREMITIES: Moves all extremities. No edema PSYCH: A&Ox4, normal affect. Objective Data Vital Signs Vital Signs: Vital Signs - 24 hr 08/17/24 14:00 08/17/24 20:00 08/17/24 22:00 Temperature 98.3 F 97.8 F Pulse Rate 76 78 Respiratory Rate 14 18 Blood Pressure 101/62 97/44 L Pulse Oximetry 98 98 93 Oxygen Delivery Nasal Cannula Oxygen Flow Rate 1 Fraction of Inspired Oxygen 24 12/19/24 22:48 08/17/24 22:48 08/18/24 06:00 Temperature 98.0 F Pulse Rate 92 76 Respiratory Rate 30 H 18 Blood Pressure 94/43 L Pulse Oximetry 96 96 92 Oxygen Delivery BiPAP BiPAP Oxygen Flow Rate 1 Fraction of Inspired Oxygen 08/18/24 08:30 08/18/24 10:00 Temperature 97.3 F L Pulse Rate 90 Respiratory Rate 18 Blood Pressure 94/50 L Pulse Oximetry 94 93 Oxygen Delivery Nasal Cannula Oxygen Flow Rate 1 Fraction of Inspired Oxygen Intake/Output Intake/Output: Intake & Output 08/15/24 08/16/24 08/17/24 08/18/24 23:59 23:59 23:59 23:59 Intake Total 800 1940 720 240 Output Total 2750 1900 1 Balance -1950 1940 -1180 239 Meds/Results Medications: Active Medications Generic Name Dose Route Start Last Admin Trade Name Freq PRN Reason Stop Dose Admin Acetaminophen 650 mg 08/07/24 16:28 Acetaminophen 325 Mg Tablet PO Q4H PRN Mild Pain (1-3) or Fever Cyanocobalamin 1,000 mcg 08/08/24 09:00 08/18/24 08:52 Cyanocobalamin 1,000 Mcg Tablet PO 1,000 mcg DAILY DELROY Administration Empagliflozin 10 mg 08/08/24 09:00 08/18/24 08:53 Empagliflozin 10 Mg Tablet PO 10 mg DAILY DELROY Administration Enoxaparin Sodium 40 mg 08/07/24 21:00 08/18/24 08:54 Enoxaparin 40 Mg/0.4 Ml Syringe SUB-Q 40 mg Q12HR DELROY Administration Furosemide 80 mg 08/14/24 17:00 08/18/24 10:35 Furosemide 80 Mg Tablet PO 80 mg BID DELROY Administration Hydroxychloroquine Sulfate 200 mg 08/08/24 09:00 08/18/24 08:53 Hydroxychloroquine Sulfate 200 Mg Tablet PO 200 mg Q12HR DELROY Administration Miscellaneous Information 1 each 08/17/24 00:01 [place] Needs To Be Renewed Or It Will Automatically Discontinue. XX 09/16/24 00:00 CLARIFY DELROY Ondansetron HCl 4 mg 08/07/24 16:28 Ondansetron Inj 4 Mg/2 Ml Vial IV PUSH Q4H PRN Nausea Potassium Chloride 20 meq 08/13/24 09:00 08/18/24 08:52 Potassium Chloride 20 Meq Er Tablet PO 20 meq DAILY DELROY Administration Sacubitril/Valsartan 1 tab 08/14/24 21:00 08/18/24 08:52 Sacubitril/Valsartan 24-26 Mg Tablet PO 1 tab Q12HR DELROY Administration Spironolactone 25 mg 08/11/24 09:00 08/18/24 08:52 Spironolactone 25 Mg Tablet PO 25 mg QAM DELROY Administration Radiology Results: ITS Impressions Chest X-Ray 08/07/24 15:18 IMPRESSION: Mild interstitial edema versus artifact from crowding. Mild bibasilar plexus/scar. Chronic right hemidiaphragm elevation. Venous Doppler Study 08/07/24 17:15 IMPRESSION: Limited visualization of the lower extremity veins abdomen below the level of the knees as detailed above. No DVT detected in the adequately visualized veins. Abdomen Ultrasound 08/08/24 15:34 IMPRESSION: normal limited abdominal ultrasound. Labs Labs: Laboratory Results - last 24 hr 08/18/24 08/18/24 05:18 05:19 WBC 2.8 L RBC 5.57 H Hgb 12.6 Hct 45.1 MCV 81.0 MCH 22.6 L MCHC 27.9 L RDW 19.9 H Plt Count 142 L MPV TNP Immature Gran % (Auto) 0.4 Neut % (Auto) 58.4 Lymph % (Auto) 24.0 [place] % (Auto) 12.2 H Eos % (Auto) 3.9 Baso % (Auto) 1.1 Lymph # (Auto) 0.67 L [place] # (Auto) 0.3 Eos # (Auto) 0.1 Baso # (Auto) 0.0 Abs Immat Gran (auto) 0.01 Absolute Neuts (auto) 1.6 Absolute Nucleated RBC 0.000 Nucleated RBC % 0.0 Platelet Estimate Adequate Large Platelets Present % Immature Plt Fraction 9.0 Hypochromasia 1+ Schistocytes None seen Sodium 136 L Potassium 4.0 Chloride 96 L Carbon Dioxide 39 H Anion Gap 1 L BUN 30 H Creatinine 1.10 H Estim Creat Clear Calc 63 Estimated GFR 53 L Glucose 93 Calcium 8.8 Magnesium 2.3 Total Bilirubin 0.8 AST 53 H ALT 52 H Alkaline Phosphatase 104 Total Protein 8.0 Albumin 3.6 Quality VTE Prophylaxis VTE prophylaxis: pharmacologic ordered Hospitalist MIPS Advance Care Plan I have confirmed that the patient's Advanced Care Plan is present, code status is documented, or surrogate decision maker is listed in patient medical record.: Yes Medication Reconciliation I have utilized all available resources to obtain, update and review the patients current medications (includes all prescriptions, OTC, herbals, cannabis, and nutritional supplements).: Yes
--- NOTE | 2024-08-18 13:29 | PM.PNPUL ---
Progress Note: A&P Assessment and Plan (1) STAS (obstructive sleep apnea): Code(s): G47.33 - Obstructive sleep apnea (adult) (pediatric) Status: Acute Assessment and Plan: Patient tells me she had obstructive sleep apnea diagnosed approximately 13 years ago and was prescribed a positive airway pressure device at that time. She wore for few years but then stopped. When she did wear it she says that it may be helped her breathe better. TSH on 08/07/2024 was 1.48. Patient had a in lab split night sleep study on 07/13/2024 with an AHI of 18 and hypoxemia. Recommended she be treated with BiPAP 18/8 with 3 L bleed in. [employer]Founder [employer] informed us today that the insurance denied BiPAP 18/8 as they said that her apnea-hypopnea index improved on CPAP 7. I reviewed this study with a sleep specialist and the patient was on CPAP 7 for 15 minutes with no REM at 1 L bleed in. Her AHI was 4.1 but this was not an adequate amount of time to determine that this was an optimal setting. Plan: Tonight the patient will wear auto PAP 8-18 with 2 L bleed in and we will perform an overnight oximetry. Will discuss these results and the sleep study with a DME and insurance company on 08/17/2024 in order to provide optimal machine and settings for the patient's obstructive sleep apnea. 08/17/2024: Patient tells me she is breathing at her baseline with no respiratory distress, cough or phlegm production. White blood cell count is 2.9, creatinine 1.0. BNP improved from 2720 on 08/07/2020 4-140 today. Her weight is 114.4 kg. Urine output was not accurately measured. Patient had an overnight oximetry on auto PAP 8-18 with 2 L bleed in. Recording duration 6 hours and 39 minutes. Average saturation 92%. Low saturation 63%. Time with saturation less than or equal to 88% was 42 minutes. Oxygen desaturation index 10.9. On review of the tracing there are multiple sharp spikes of desaturations associated with increase of heart rate consistent with obstructive events. Plan: Patient has obstructive sleep apnea does not appear to be controlled with auto PAP 8-18 and 2 L bleed in. Will discuss these results with sleep specialist and respiratory intensive care medicine specialist in order to provide recommendations to [employer] that would then be presented to the insurance company. May require peer to peer review process with the insurance company. Further recommendations to follow. 08/18/2024: Patient tells me she is breathing normal with no respiratory symptoms. Patient wore BiPAP 18/8 with 3 L bleed in last night and said she slept well with this. Patient had an overnight oximetry on these studies with recording duration 6 hours and 21 minutes. Average saturation 91%. Low saturation 78%. Time with saturation less than or equal to 88% was 23 minutes, oxygen desaturation index 9.1. Plan: I have discussed with our respiratory therapist Who has been in contact with the [employer]. It does not look like BiPAP will be approved. We will discuss with the [employer] approval for an auto PAP with a goal of discharge on auto PAP 5 to 20 and 4 L bleed in. If this cannot be arranged today will discharge the patient on 4 L oxygen when she naps and sleeps and follow-up in the Pulmonary Clinic to continue the process for CPAP or BiPAP approval. Discharge on these pulmonary medications: Oxygen: No oxygen at rest and 2 L with activity. Auto PAP 5 to 20 with 4 L bleed in if this can be arranged. If not she should wear nasal cannula 4 L bleed in. The nursing information systems coordinator is waiting to hear back from [employer] regarding approval of auto Pap. Diuretics per hospitalist team. I discussed this plan with the patient, her mother, and her father. The patient lives with her mother and father and they are in agreement with this plan. Follow-up in the Pulmonary Clinic with a previously scheduled appointment on 09/11/24 at 2:00 p.m.. Discussed with Megan Butler. (2) CHF (congestive heart failure): Qualifiers: Heart failure chronicity: acute on chronic Heart failure type: diastolic Qualified Code(s): I50.33 - Acute on chronic diastolic (congestive) heart failure Code(s): I50.9 - Heart failure, unspecified Status: Acute Assessment and Plan: Patient followed by Cardiology and has diuresed 16 L since admission. Currently the patient is on Lasix 80 mg p.o. b.i.d., Jardiance 10 q.day, spironolactone 25 q.day, Entresto 24-26 q.12 hours. Admission weight is 145 kg. Plan: Continue optimization of her congestive heart failure per Cardiology and hospitalist team. 08/17/2024: BNP improved from 2720 on 08/07/2020 4-140 today. Her weight is 114.4 kg. Urine output was not accurately measured. Plan: Management of congestive heart failure and fluid overload per Cardiology and hospitalist teams. 08/18/24: Overall patient's lower extremity edema is markedly improved. Her creatinine today is 1.1, her weight is 112.5 kg cumulative diuresis since admission -14 L. Patient had a home O2 assessment with rest room air saturation 93%. Exercise room air saturation 85%. Exercise 1 L saturation 87%, exercise 2 L nasal cannula saturation 92%. Patient requires no oxygen at rest and 2 with activity. plan: Patient should be discharged on no oxygen at rest and 2 with activity. blood pressure soft and Lasix has been decreased from 80 p.o. b.i.d. to 60 p.o. b.i.d.. Continues on Jardiance 10, spironolactone 25, and trust of 24-26 and 1 tablet b.i.d.. Subjective Date/time seen: 08/18/24 13:29 Interval history: 08/16/2024: This is a new pulmonary consult for obstructive sleep apnea 49-year-old with a history of morbid obesity, chronic venous stasis versus lymphedema, hypertension, obstructive sleep apnea. Patient tells me she had obstructive sleep apnea diagnosed approximately 13 years ago and was prescribed a positive airway pressure device at that time. She wore for few years but then stopped. When she did wear it she says that it may be helped her breathe better. Patient had a in lab split night sleep study on 07/13/2024 with an AHI of 18 and hypoxemia. Recommended she be treated with BiPAP 18/8 with 3 L bleed in. Patient was followed in the pulmonary lab and a call was made to her to discuss these results and a voicemail was left but she never called the clinic to discuss the results. Patient presented to the emergency department on 08/07/2024 with shortness of breath and pedal edema. ABG on 3 L nasal cannula 7.38/50.7/85. Patient was diagnosed with congestive heart failure and treated with Lasix IV. She was initiated on BiPAP 18/8 with 3 L bleed in. patient improved with IV diuresis and her weight has decreased from 145 kg on admission to 117 kg. She has diuresed a total of 16 L. 08/14/2024: Patient had an overnight oximetry on BiPAP 18/8 with 1 L bleed in. Recording duration 4 hours and 40 minutes. Average saturation 82%. Low saturation 68%. Time with saturation less than or equal to 88% was 264 minutes. Oxygen desaturation index 40.9. 08/15/2024: Patient had a home O2 assessment demonstrating she needed 1 L at rest and 2 L with activity. 08/16/2024: the parents are in the room. The parents state that she lives with them and that she snores, has witnessed apneas and stops breathing and sometimes turns blue at night. The patient denies any morning headaches. Overall the patient is much improved and currently she is on 1 L nasal cannula saturations 99%. I decreased her to room air and her saturations were 93 after 13 minutes. 08/17/2024: Patient tells me she is breathing at her baseline with no respiratory distress, cough or phlegm production. White blood cell count is 2.9, creatinine 1.0. BNP improved from 2720 on 08/07/2020 4-140 today. Her weight is 114.4 kg. Urine output was not accurately measured. Patient had an overnight oximetry on auto PAP - with 2 L bleed in. Recording duration 6 hours and 39 minutes. Average saturation 92%. Low saturation 63%. Time with saturation less than or equal to 88% was 42 minutes. Oxygen desaturation index 10.9. On review of the tracing there are multiple sharp spikes of desaturations associated with increase of heart rate consistent with obstructive events. 08/18/2024: Patient tells me she is breathing normal with no respiratory symptoms. Patient wore BiPAP 18/8 with 3 L bleed in last night and said she slept well with this. Patient had an overnight oximetry on these studies with recording duration 6 hours and 21 minutes. Average saturation 91%. Low saturation 78%. Time with saturation less than or equal to 88% was 23 minutes, oxygen desaturation index 9.1. Patient had a home O2 assessment with rest room air saturation 93%. Exercise room air saturation 85%. Exercise 1 L saturation 87%, exercise 2 L nasal cannula saturation 92%. Patient requires no oxygen at rest and 2 with activity. Her creatinine today is 1.1, her weight is 112.5 kg cumulative diuresis since admission -14 L. blood pressure low and Lasix has been decreased from 80 p.o. b.i.d. to 60 p.o. b.i.d.. DATA: 08/15/24: Summary 1. This was a limited study for bubble study only. 2. Intact interatrial septum visualized by agitated saline imaging. Negative bubble study. 08/09/24 Echo Summary 1. Complete two-dimensional, color flow and Doppler transthoracic echocardiogram is performed. 2. Left ventricular chamber dimension is normal. 3. Left ventricular wall thickness is normal. 4. Left ventricular systolic function is mildly reduced with a visually estimated ejection fraction of 50-55%. 5. Left ventricular septal wall motion shows abnormal septal motion due to RV pressure and volume load. 6. Right ventricular chamber dimension is enlarged. 7. Right ventricular systolic function is reduced. 8. Right atrial chamber dimension is enlarged. 9. Possible Patent foramen ovale (PFO) on color flow imaging. 10. There is moderate tricuspid valve regurgitation. 11. Mild pulmonary hypertension, estimated pulmonary arterial systolic pressure is 52 mmHg. 12. Dilated inferior vena cava with <50% collapse upon inspiration consistent with elevated right atrial pressure, 15 mmHg. Recommendations * Consider bubble study to further evaluate PFO. Right Ventricle Right ventricular chamber dimension is enlarged. Right ventricular systolic function is reduced. Left Atria Left atrial chamber dimension is normal. Right Atria Right atrial chamber dimension is enlarged. Atrial Septum Possible Patent foramen ovale (PFO) on color flow imaging. 07/24/24: split night sleep study assessment and planIn the baseline portion of the study, the patient had an overall AHI of 18 with desaturation down to 41%. This is consistent with moderate sleep apnea. The patient was started on CPAP 5 cm H2O and titrated to BPAP 18/8 cm H2O with 2 lpm of supplemental oxygen. while the patient's sleep apnea resolved on the final pressure settings during the study, her oxygen saturation was still persistently below 90%. I recommend that the patient be prescribed BPAP 18/8 cm H2O with 3 lpm of supplemental oxygen, size small F&P Eson nasl mask, BPAP filters/tubing and heated humidity. This should be used with all episodes of sleep.? Compliance should be reviewed within 31-90 days of starting therapy for usage greater than 4 hours per night greater than 70% of the nights. The patient should be asked about symptoms such as?excessive daytime sleepiness, quality of sleep, decreased nocturia, increased?mental functioning such as memory, mood, and concentration. Review of Systems Constitutional: Constitutional: Reports no additional constitutional complaints Eyes: Eyes: Reports no additional eye complaints ENT: Reports system reviewed and no additional complaints, except as documented Cardiovascular: Cardiovascular: Reports no additional cardiovascular complaints Respiratory: Respiratory: Reports no additional respiratory complaints Gastrointestinal: Gastrointestinal: Reports no additional gastrointestinal complaints Musculoskeletal: Musculoskeletal: Reports no additional musculoskeletal complaints Neurologic: Reports system reviewed and no additional complaints, except as documented Psychiatric: Psychiatric: Reports no additional psychiatric complaints Endocrine: Endocrine: Reports no additional endocrine complaints Hematologic/Lymphatic: Hematologic/Lymphatic: Reports no additional hematologic/lymphatic complaints Allergic/Immunologic: Allergic/Immunologic: Reports no additional allergic/immunologic complaints Exam Const: General: cooperative and comfortable Orientation/consciousness: oriented to person, oriented to place and oriented to time Other: obese HENMT: Head: normal to inspection Ears: hearing grossly normal bilaterally Eyes: General: appearance normal, both eyes and all related structures Neck: Neck: normal visual inspection Chest: Chest palpation & inspection: normal inspection of the chest Resp: Effort & Inspection: normal respiratory effort and able to speak in complete sentences Auscultation: no crackles, no rales, no rhonchi, no wheezes and diminished lung sounds Other: obese Cardio: Jugular venous distension: no JVD GI: Inspection: normal to inspection Skin: General skin exam: normal color Neuro: General: oriented to person, oriented to place and oriented to time Extrem: General: normal to inspection and edema Other: Improved edema Psych: Appearance: grossly normal Objective Data Vital Signs Vital Signs: Vital Signs - 24 hr 08/17/24 14:00 08/17/24 20:00 08/17/24 22:00 Temperature 36.8 C 36.6 C Pulse Rate 76 78 Respiratory Rate 14 18 Blood Pressure 101/62 97/44 L Pulse Oximetry 98 98 93 Oxygen Delivery Nasal Cannula Oxygen Flow Rate 1 Fraction of Inspired Oxygen 08/17/24 22:48 08/17/24 22:48 08/18/24 06:00 Temperature 36.7 C Pulse Rate 92 76 Respiratory Rate 30 H 18 Blood Pressure 94/43 L Pulse Oximetry 96 96 92 Oxygen Delivery BiPAP BiPAP Oxygen Flow Rate 1 Fraction of Inspired Oxygen 08/18/24 08:30 08/18/24 10:00 08/18/24 10:45 Temperature 36.3 C L Pulse Rate 90 70 Respiratory Rate 18 Blood Pressure 94/50 L Pulse Oximetry 94 93 93 Oxygen Delivery Nasal Cannula Room Air Oxygen Flow Rate 1 Fraction of Inspired Oxygen 08/18/24 10:50 08/18/24 10:52 08/18/24 10:53 Temperature Pulse Rate 89 96 Respiratory Rate Blood Pressure Pulse Oximetry 85 L 87 L 92 Oxygen Delivery Room Air Nasal Cannula Nasal Cannula Oxygen Flow Rate 1 2 Fraction of Inspired Oxygen 08/18/24 11:00 Temperature Pulse Rate 76 Respiratory Rate Blood Pressure Pulse Oximetry 92 Oxygen Delivery Room Air Oxygen Flow Rate Fraction of Inspired Oxygen Intake/Output Intake/Output: Intake & Output 08/15/24 08/16/24 08/17/24 08/18/24 23:59 23:59 23:59 23:59 Intake Total 800 1940 720 240 Output Total 2750 1900 1 Balance -1950 1940 -1180 239 Meds/Results Medications: Active Medications Generic Name Dose Route Start Last Admin Trade Name Freq PRN Reason Stop Dose Admin Acetaminophen 650 mg 08/07/24 16:28 Acetaminophen 325 Mg Tablet PO Q4H PRN Mild Pain (1-3) or Fever Cyanocobalamin 1,000 mcg 08/08/24 09:00 08/18/24 08:52 Cyanocobalamin 1,000 Mcg Tablet PO 1,000 mcg DAILY DELROY Administration Empagliflozin 10 mg 08/08/24 09:00 08/18/24 08:53 Empagliflozin 10 Mg Tablet PO 10 mg DAILY DELROY Administration Enoxaparin Sodium 40 mg 08/07/24 21:00 08/18/24 08:54 Enoxaparin 40 Mg/0.4 Ml Syringe SUB-Q 40 mg Q12HR DELROY Administration Furosemide 60 mg 08/18/24 17:00 Furosemide 20 Mg Tablet PO BID DELROY Hydroxychloroquine Sulfate 200 mg 08/08/24 09:00 08/18/24 08:53 Hydroxychloroquine Sulfate 200 Mg Tablet PO 200 mg Q12HR DELROY Administration Miscellaneous Information 1 each 08/17/24 00:01 [place] Needs To Be Renewed Or It Will Automatically Discontinue. XX 09/16/24 00:00 CLARIFY DELROY Ondansetron HCl 4 mg 08/07/24 16:28 Ondansetron Inj 4 Mg/2 Ml Vial IV PUSH Q4H PRN Nausea Potassium Chloride 20 meq 08/13/24 09:00 08/18/24 08:52 Potassium Chloride 20 Meq Er Tablet PO 20 meq DAILY DELROY Administration Sacubitril/Valsartan 1 tab 08/14/24 21:00 08/18/24 08:52 Sacubitril/Valsartan 24-26 Mg Tablet PO 1 tab Q12HR DELROY Administration Spironolactone 25 mg 08/11/24 09:00 08/18/24 08:52 Spironolactone 25 Mg Tablet PO 25 mg QAM DELROY Administration Radiology Results: ITS Impressions Chest X-Ray 08/07/24 15:18 IMPRESSION: Mild interstitial edema versus artifact from crowding. Mild bibasilar plexus/scar. Chronic right hemidiaphragm elevation. Venous Doppler Study 08/07/24 17:15 IMPRESSION: Limited visualization of the lower extremity veins abdomen below the level of the knees as detailed above. No DVT detected in the adequately visualized veins. Abdomen Ultrasound 08/08/24 15:34 IMPRESSION: normal limited abdominal ultrasound. Labs Labs: Laboratory Results - last 24 hr 08/18/24 08/18/24 05:18 05:19 WBC 2.8 L RBC 5.57 H Hgb 12.6 Hct 45.1 MCV 81.0 MCH 22.6 L MCHC 27.9 L RDW 19.9 H Plt Count 142 L MPV TNP Immature Gran % (Auto) 0.4 Neut % (Auto) 58.4 Lymph % (Auto) 24.0 Bradley % (Auto) 12.2 H Eos % (Auto) 3.9 Baso % (Auto) 1.1 Lymph # (Auto) 0.67 L Bradley # (Auto) 0.3 Eos # (Auto) 0.1 Baso # (Auto) 0.0 Abs Immat Gran (auto) 0.01 Absolute Neuts (auto) 1.6 Absolute Nucleated RBC 0.000 Nucleated RBC % 0.0 Platelet Estimate Adequate Large Platelets Present % Immature Plt Fraction 9.0 Hypochromasia 1+ Schistocytes None seen Sodium 136 L Potassium 4.0 Chloride 96 L Carbon Dioxide 39 H Anion Gap 1 L BUN 30 H Creatinine 1.10 H Estim Creat Clear Calc 63 Estimated GFR 53 L Glucose 93 Calcium 8.8 Magnesium 2.3 Total Bilirubin 0.8 AST 53 H ALT 52 H Alkaline Phosphatase 104 Total Protein 8.0 Albumin 3.6
--- NOTE | 2024-08-18 15:17 | PCRCNOTE ---
Home Auto-pap unit being arranged with [facility]. Device to be delivered to the hospital by [facility] today.
[2024-08-18] MEDS: FUROSEMIDE 20 MG TABLET 60 MG PO (17:53)
--- NOTE | 2024-08-18 18:23 | PC.NURSE ---
DME freight representative fitted patient with autopap. Provider notified. OK to continue with discharge.
== END 2024-08-18 18:40 | disposition home or self-care (01) | DRG 194 ==
LOC: ANHED 15:05 → ANH2MED 16:55
PROVIDERS: Internal Medicine; Internal Medicine Pulmonary Disease; Nurse Practitioner Adult Health; Admitting Provider Internal Medicine; Emergency Provider Emergency Medicine; PCP Family Medicine; Visit Provider Nurse Practitioner Acute Care
DX: I11.0 Hypertensive heart disease with heart failure (principal); I50.33 Acute on chronic diastolic (congestive) heart failure; J96.01 Acute respiratory failure with hypoxia; J96.12 Chronic respiratory failure with hypercapnia; M32.9 Systemic lupus erythematosus, unspecified; E66.2 Morbid (severe) obesity with alveolar hypoventilation; I89.0 Lymphedema, not elsewhere classified; Z85.820 Personal history of malignant melanoma of skin; Z86.16 Personal history of COVID-19; Z68.42 Body mass index [BMI] 45.0-49.9, adult
CPT/HCPCS: 36415; 36600; 71045; 76705; 80048; 80053; 80076; 82805; 83605; 83735; 83880; 84100; 84443; 84484; 85018; 85025; 85027; 85055; 85610; 85730; 93005; 93306; 93308; 93970; 94618; 94762; 96372; 96374; 96375; 96376; 99285; A9270; G0378; J1650; J1940

== ENCOUNTER 2024-08-25 06:57 | Outpatient (CLI) | payer OTHER, SELFPAY ==
[2024-08-25 07:40] LABS: Anion Gap 3 mmol/L (4-12); Blood Urea Nitrogen 30 mg/dL (7-17); Calcium 9.3 mg/dL (8.4-10.2); Carbon Dioxide 33 mmol/L (22-30); Chloride 104 mmol/L (98-107); Estimated Glomerular Filt Rate 59; Glucose 95 mg/dL (65-110); Magnesium 2.3 mg/dL (1.6-2.3); Potassium 4.1 mmol/L (3.4-5.0); Sodium 140 mmol/L (137-145)
== END 2024-08-25 06:58 | disposition home or self-care (01) ==
LOC: ANHLAB 06:58
PROVIDERS: PCP Family Medicine; Visit Provider Nurse Practitioner Acute Care
DX: I50.9 Heart failure, unspecified (principal)
CPT/HCPCS: 36415; 80048; 83735

== ENCOUNTER 2024-09-25 06:40 | Outpatient (CLI) | payer OTHER, SELFPAY ==
--- OUTSIDE RECORDS SUMMARY | 2024-09-25 06:43 | XMS_ITS | Clinical Summary ---
Author Organization [facility] Address [address] [place] [address]. [place], [place] [id number] [place] [id number] Care Team Providers Care Resistance Brazer Name Role Phone Ary Wooten JAVA SECURITY ARCHITECT Primary Care Provider [phone] Social History Tobacco Use Types Packs/Day Years Used Date Smoking Tobacco: Never Assessed Comments Unknown Sex and Gender Information Value Date Recorded Sex Assigned at Not on file Legal Sex Female 9:41 AM CDT Gender Identity Not on file Sexual Orientation Not on file Plan of Treatment Health Maintenance Due Date Last Done Comments Cervical Cancer Screening Pa p Smear (Age 30 to 64) Every 3 Years 1974 Colorectal Cancer Screening Colonoscopy (10 Years) 1974 Annual Physical 1977 Hepatitis C 1992 DTaP, Tdap and Td Vaccines ( 1 - Tdap) 1993 Hepatitis B Vaccines (1 of 3 - 19+ 3-dose series) 1993 Cervical Cancer Screening Pa p with HPV Testing (Age 30 to 64) Every 5 Years 2004 Cervical Cancer Screening with HPV 2004 Mammogram Screening 2014 COVID-19 Vaccine ( - 2023-2 5 season) 2024 Zoster Vaccines (1 of 2) 2024 Influenza Adult (#1) 2024 Meningococcal Vaccine Aged Out No trace danielle eligible based on patient's age to complete this topic Pneumococcal Vaccine: Pediat rics (0 to 5 Years) and At-Risk Patients (6 to 64 Years) Aged Out No longer eligible b ased on patient's age to complete this topic RSV Immunizations Under 20 Months Aged Out No longer eligible based on patient's age to complete this topic Insurance MEDICAID Care Teams Resistance Brazer Relationship Specialty Start Date End Date Ary Wooten FNP [address] [place] [address] PCP - General NURSE PRACTITIONER 04/04/24
--- OUTSIDE RECORDS SUMMARY | 2024-09-25 06:43 | XMS_ITS | Clinical Summary ---
Author Organization [facility] Address [address] [place] [address] [place] [address] Care Team Providers Care Cable Installation Manager Name Role Phone Mary Vazquez MD Primary Care Provider Allergies Active Allergy Reactions Criticality Noted Date Comments Amoxicillin Rash Medium 02/08/2018 Penicillins Rash Low 02/02/2019 Sulfa (Sulfonamide Antibiotics) Hives,Rash,Unknown High 01/31/2019 Sulfamethoxazole-Trimethoprim Rash Low 2018 Medications triamterene-hyd roCHLOROthiazid e (DYAZIDE) 37.5-25 mg capsule Take 1 Capsule by mouth daily superintendent transmission. Active hydroxychloroqu ine (PLAQUENIL) 200 mg tablet Take 200 mg by mouth daily. Active HYDROcodone-rima taminophen (NORCO) 5-325 mg tablet 1-2 TABLET(S) BY MOUTH EVERY 4-6H NEDED FOR PAIN RATED 4 TO 6 0 06/22/20 19 Active nivolumab (OPDIVO) 100 mg/10 mL Solution 240 mg. Active lidocaine-prilo pacheco (EMLA) 2.5-2.5 % CreamIndication s:Melanoma of overlapping sites (CMS/HCC) Apply to affected area see administration instructions. Apply to port site 30 minutes prior to access. 30 Gram 1 03/12/20 20 Active ferrous sulfate 325 mg (65 mg iron) tablet Take 325 mg by mouth 3 times daily. Active ascorbic acid, vitamin C, (VITAMIN C) 500 mg tablet Take 500 mg by mouth daily. Active cyanocobalamin 1,000 mcg Tablet Take 2,500 mcg by mouth daily. Active ondansetron (ZOFRAN) 4 mg TabletIndicatio ns:Melanoma of overlapping sites (CMS/HCC) TAKE 1 TABLET (4 MG) BY MOUTH EVERY 8 HOURS NEEDED FOR NAUSEA/EMESIS. 12 Tablet 37 08/05/20 20 Active furosemide (LASIX) 40 mg tablet 01/11/20 21 Active potassium chloride (MICRO-K EXTENCAPS) 10 mEq Extended Release capsule 01/14/20 21 Active azaTHIOprine (IMURAN) 50 mg tablet Take 50 mg by mouth daily. Half a pill daily per Lupus Dr. Ashly Florez MD @@[facility] Active albuterol sulfate 90 mcg/Actuation inhaler TAKE 2 PUFFS BY MOUTH 4 TIMES A DAY NEEDED FOR SHORTNESS OF BREATH 10/20/19 22 Active Active Problems Problem Noted Date Diagnosed Date Other dietary vitamin B12 deficiency anemia 03/31 Subclinical hyperthyroidism 04/26/2020 Microcytic anemia 01/19/2020 Malignant melanoma of overlapping sites 07/25/20 19 Family History Relation Name Status Comments Brother Father Alive Mother Alive Sister Alive Social History Tobacco Use Types Packs/Day Years Used Date Smoking Tobacco: Never Smokeless Tobacco: Never Tobacco Cessation:Counseling Given: Not Answered Alcohol Use Standard Drinks/Week Comments Yes 0 (1 standard drink = 0.6 oz pur e alcohol) Comments No Sex and Gender Information Value Date Recorded Sex Assigned at Not on file Legal Sex Female 10:51 AM CDT Gender Identity Not on file Sexual Orientation Not on file Last Filed Vital Signs Vital Sign Reading Time Taken Comments Blood Pressure 122/78 07/16/2022 3:27 PM POULTRY HUSBANDMAN Pulse 98 07/16/2022 3:27 PM POULTRY HUSBANDMAN Temperature 37.2 ??C (98.9 ??F) 07/16/2022 3:27 PM CS T Respiratory Rate 16 07/16/2022 3:27 PM POULTRY HUSBANDMAN Oxygen Saturation 96% 07/16/2022 3:27 PM POULTRY HUSBANDMAN Inhaled Oxygen Concentration - - Weight 134.9 kg (297 lb 6.4 oz) 07/16/2022 3:27 PM POULTRY HUSBANDMAN Height 154.9 cm (5' 1 ) 01/15/2022 3:09 PM CDT Body Mass Index 56.19 01/15/2022 3:09 PM CDT Plan of Treatment Health Maintenance Due Date Last Done Comments PNEUMOCOCCAL VACCINE 0-64 YE ARS (1 of 2 - PCV) 1980 DTAP/TDAP/TD VACCINES (1 - Tdap) 1993 HEPATITIS B VACCINES (1 of 3 - 19+ 3-dose series) 1993 ZOSTER VACCINE (1 of 2) 1993 CERVICAL CANCER SCREENING 2004 BREAST CANCER SCREENING 2014 COLORECTAL SCREENING 2019 Colorectal Cancer Screening 2019 FIT-DNA Q 3 years 2019 FIT/FOBT Q 1 year 2019 Flex Sig/CT Colonography Q 5 years 2019 INFLUENZA VACCINE (#1) 2024 2, 06/19/2020, 06/18/2020, Additional history exists Insurance [employer] Care Teams Cable Installation Manager Relationship Specialty Start Date End Date Mary Vazquez MD [address] [place] [address] PCP - General Family Practice 06/30/19
--- OUTSIDE RECORDS SUMMARY | 2024-09-25 06:43 | XMS_ITS | Encounter Summary ---
Author Organization [facility] Health Address [address] [place] [address] Care Team Providers Care Wood Gouger Name Role Phone Artemio Gaviria MD Primary Care Provider [phone] Encounter Details Date Type Department Care Team (Late st Contact Info) Description 01/15/2021 Lab Requisition [facility] Care DermPath Lab [address] [facility], [place] [phone] Renaldo [place] [address] Social History Tobacco Use Types Packs/Day Years Used Date Smoking Tobacco: Never Assessed Sex and Gender Information Value Date Recorded Sex Assigned at Not on file Gender Identity Not on file Sexual Orientation Not on file documented as of this encounter Plan of Treatment Not on file documented as of this encounter Procedures Procedure Name Priority Date/Time Associated Diagnosis Comments DERMATOPATHOLOGY Routine 01/14/2021 12:0 0 AM CDT documented in this encounter Results * DERMATOPATHOLOGY (01/14/2021 12:00 AM CDT) Case Report Dermatopathology Report ? Case: [id number] ? Authorizing Provider: ??Renaldo Muniz MD ?Collected: ? 01/14/2021 12:00 AM ? Ordering Location: ? [facility] DermPath Lab ?Received: ?01/15/2021 01:48 PM ? Pathologist: ? Grace Norton MD ? Specimens: ?? A) - Skin, left upper lat back ? B) - Skin, right lower back ? C) - Skin, right lower back lat ? D) - Skin, below right ear ? 1 4:27 PM CDT DERMATOPATHOLOGY LABORATORY Final Diagnosis Specimen A. 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 SKIN, right lower back: COMPOUND NEVUS WITH CONGENITAL FEATURES (D22.5) (see microscopic description) Specimen C. SKIN, right lower back lat: LENTIGINOUS MELANOCYTIC NEVUS, COMPOUND TYPE, IRRITATED (COMPOUND MELANOCYTIC NEVUS WITH ARCHITECTURAL DISORDER) (D22.5) Specimen D. SKIN, below right ear: LENTIGINOUS MELANOCYTIC NEVUS, COMPOUND TYPE (COMPOUND MELANOCYTIC NEVUS WITH ARCHITECTURAL DISORDER) (D22.4) 4:27 PM [facility] DERMATOPATHOLOGY LABORATORY Clinical History A-D: R/O dys nevus. 4:27 PM T DERMATOPATHOLOGY LABORATORY Gross Description Specimen A: Received is one formalin filled container labeled with the patient's name and designated left upper lat back. The specimen consists of a shave biopsy measuring [id number]. Jar 0. Specimen B: Received is one formalin filled container labeled with the patient's name and designated right lower back. The specimen consists of a shave biopsy measuring [id number]. Jar 0. Specimen C: Received is one formalin filled container labeled with the patient's name and designated right lower back lat. The specimen consists of a shave biopsy measuring 5q5w2kv. Jar 0. Specimen D: Received is one formalin filled container labeled with the patient's name and designated below right ear. The specimen consists of a shave biopsy measuring 3v2w5hg. Jar 0. 4:27 PM T DERMATOPATHOLOGY LABORATORY Microscopic Description Specimen A. SKIN, left upper lat back: This is a compound nevus. There is architectural disorder characterized by a lentiginous proliferation of melanocytes along the dermal-epidermal junction, highlighted by MART-1/Melan-A immunohistochemical staining. There is underlying fibroplasia of the papillary dermis. The intradermal component is bland in appearance and matures with depth. Original and deeper sections were reviewed. (Compound Joel's Nevus or Compound Dysplastic Nevus) Specimen B. SKIN, right lower back: There are nests of melanocytes at the dermal-epidermal junction and within the dermis, highlighted by MART-1/Melan-A immunostain. Some melanocytes are splayed between collagen bundles and are localized around adnexal structures. Specimen C. SKIN, right lower back lat: This is a compound nevus. There is melanin pigment in the stratum corneum. There is architectural disorder characterized by a lentiginous proliferation of melanocytes between irregular nests of cells along the dermal-epidermal junction, highlighted by MART-1/Melan-A immunohistochemical staining. There is underlying fibroplasia of the papillary dermis. The intradermal component is bland appearance and matures with depth. Original and deeper sections were reviewed. (Compound Joel's Nevus or Compound Dysplastic Nevus) Specimen D. SKIN, below right ear: This is a compound nevus. There is architectural disorder characterized by a lentiginous proliferation of melanocytes along the dermal-epidermal junction, highlighted by MART-1/Melan-A immunohistochemical staining. There is underlying fibroplasia of the papillary dermis. The intradermal component is bland in appearance and matures with depth. Original and deeper sections were reviewed. (Compound Joel's Nevus or Compound Dysplastic Nevus) 4:27 PM CDT DERMATOPATHOLOGY LABORATORY Disclaimer An external and internal positive and negative controls are appropriate for the histochemical, immunohistochemical and immunofluorescence stain(s) in this case (if any), except where stated explicitly. The performance characteristics of the stain(s) cited in this report were developed and its performance characteristic determined by the Dermatopathology Laboratory at [facility], directed by Dr. Lashanda Parks. These tests need not be, and therefore are not, approved by the [place] Food and Drug Administration. The tests are used for clinical purposes. Billing Codes Specimen Charges Stain Charges 30652 86765 52240 77367 1 1 1 1 57305 05940 97454 53653 1 1 1 1 4:27 PM CDT DERMATOPATHOLOGY LABORATORY Embedded Images 4:27 PM CDT DERMATOPATHOLOGY LABORATORY Pathology/Cytology TISSUE SPECIMEN FROM SKIN / Unknown 01/14/2021 01/15/2021 1:48 PM CDT Miscellaneous samples (specimen) TISSUE SPECIMEN FROM SKIN / Unknown 01/14/2021 01/15/2021 1:48 PM CDT Miscellaneous samples (specimen) TISSUE SPECIMEN FROM SKIN / Unknown 01/14/2021 01/15/2021 1:48 PM CDT Miscellaneous samples (specimen) TISSUE SPECIMEN FROM SKIN / Unknown 01/14/2021 01/15/2021 1:48 PM CDT Renaldo Muniz MD LAB - PATHOLOGY/CYTO LOGY ORDERABLES DERMATOPATHOLOGY LABORATORY [facility] - Department of Dermatology [facility] Medicine [address] [place] [address], [address] [phone] documented in this encounter Visit Diagnoses Not on filedocumented in this encounter Care Teams Wood Gouger Relationship Specialty Start Date End Date Artemio Gaviria MD [address] [place] [address] PCP - General 06/26/19 documented as of this encounter
--- OUTSIDE RECORDS SUMMARY | 2024-09-25 06:43 | XMS_ITS | Encounter Summary ---
Author Organization [facility] Health Address [address] [facility] [facility] [place] [address] Care Team Providers Care School Crossing Guard Name Role Phone Artemio Gaviria MD Primary Care Provider [phone] Encounter Details Date Type Department Care Team (Late st Contact Info) Description 12/21/2019 Lab Requisition [facility] Care DermPath Lab [address] [facility] [place] [phone] Renaldo Muniz MD [place] [address] Social History Tobacco Use Types Packs/Day Years Used Date Smoking Tobacco: Never Assessed Sex and Gender Information Value Date Recorded Sex Assigned at Not on file Gender Identity Not on file Sexual Orientation Not on file documented as of this encounter Plan of Treatment Not on file documented as of this encounter Procedures Procedure Name Priority Date/Time Associated Diagnosis Comments DERMATOPATHOLOGY Routine 12/20/2019 12:0 0 AM CDT documented in this encounter Results * DERMATOPATHOLOGY (12/20/2019 12:00 AM CDT) Case Report Dermatopathology Report ? Case: [id number] ? Authorizing Provider: ??Renaldo Muniz MD ?Collected: ? 12/20/2019 12:00 AM ? Ordering Location: ? [facility] DermPath Lab ?Received: ?12/21/2019 12:58 PM ? Pathologist: ? Reny Clark MD ? Specimens: ?? A) - Skin, left lat upper back above scar ? B) - Skin, left upper back above scar ? C) - Skin, left med upper back above scar ? D) - Skin, left paraspinal mid upper back ? 0 2:28 PM CDT DERMATOPATHOLOGY LABORATORY Final Diagnosis Specimen A. SKIN, left lat upper back above scar: LENTIGINOUS MELANOCYTIC NEVUS, COMPOUND TYPE, IRRITATED (COMPOUND MELANOCYTIC NEVUS WITH ARCHITECTURAL DISORDER) (D22.5) Specimen B. SKIN, left upper back above scar: LENTIGINOUS MELANOCYTIC NEVUS, COMPOUND TYPE, IRRITATED (COMPOUND MELANOCYTIC NEVUS WITH ARCHITECTURAL DISORDER) (D22.5) Specimen C. SKIN, left med upper back above scar: LENTIGINOUS MELANOCYTIC NEVUS, COMPOUND TYPE, IRRITATED (COMPOUND MELANOCYTIC NEVUS WITH ARCHITECTURAL DISORDER) (D22.5) Specimen D. SKIN, left paraspinal mid upper back: LENTIGINOUS MELANOCYTIC NEVUS, COMPOUND TYPE, IRRITATED (COMPOUND MELANOCYTIC NEVUS WITH ARCHITECTURAL DISORDER) (D22.5) 0 2:28 PM T DERMATOPATHOLOGY LABORATORY Clinical History A-D: R/O dys nevus. 0 2:28 PM CDT DERMATOPATHOLOGY LABORATORY Gross Description Specimen A: Received is one formalin filled container labeled with the patient's name and designated left lat upper back above scar. The specimen consists of a shave biopsy measuring 4o7t2xk. Jar 0. Specimen B: Received is one formalin filled container labeled with the patient's name and designated left upper back above scar. The specimen consists of a shave biopsy measuring [id number]. Jar 0. Specimen C: Received is one formalin filled container labeled with the patient's name and designated left med upper back above scar. The specimen consists of a shave biopsy measuring 56f15o5dz. Jar 0. Specimen D: Received is one formalin filled container. The specimen consists of a shave biopsy measuring 9t4x2ve. Jar 0. 0 2:28 PM CDT DERMATOPATHOLOGY LABORATORY Microscopic Description Specimen A. SKIN, left lat upper back above scar: This is a compound nevus. There is melanin pigment in the stratum corneum. There is architectural disorder characterized by a lentiginous proliferation of melanocytes between irregular nevus nests of cells along the dermal epidermal junction. There is underlying fibroplasia of the papillary dermis. The intradermal component is bland in appearance and matures with depth. (Compound Joel's Nevus or Compound Dysplastic Nevus) Specimen B. SKIN, left upper back above scar: This is a compound nevus. There is melanin pigment in the stratum corneum. There is architectural disorder characterized by a lentiginous proliferation of melanocytes between irregular nevus nests of cells along the dermal epidermal junction. There is underlying fibroplasia of the papillary dermis. The intradermal component is bland in appearance and matures with depth. (Compound Joel's Nevus or Compound Dysplastic Nevus) Specimen C. SKIN, left med upper back above scar: This is a compound nevus. There is melanin pigment in the stratum corneum. There is architectural disorder characterized by a lentiginous proliferation of melanocytes between irregular nevus nests of cells along the dermal epidermal junction. There is underlying fibroplasia of the papillary dermis. The intradermal component is bland in appearance and matures with depth. (Compound Joel's Nevus or Compound Dysplastic Nevus) Specimen D. SKIN, left paraspinal mid upper back: This is a compound nevus. There is melanin pigment in the stratum corneum. There is architectural disorder characterized by a lentiginous proliferation of melanocytes between irregular nevus nests of cells along the dermal epidermal junction. There is underlying fibroplasia of the papillary dermis. The intradermal component is bland in appearance and matures with depth. (Compound Joel's Nevus or Compound Dysplastic Nevus) 0 2:28 PM CDT DERMATOPATHOLOGY LABORATORY Disclaimer An external and internal positive and negative controls are appropriate for the histochemical, immunohistochemical and immunofluorescence stain(s) in this case (if any), except where stated explicitly. The performance characteristics of the stain(s) cited in this report were developed and its performance characteristic determined by the Dermatopathology Laboratory at [facility], directed by Dr. Lashanda Parks. These tests need not be, and therefore are not, approved by the [place] Food and Drug Administration. The tests are used for clinical purposes. Billing Codes Specimen Charges Stain Charges 33981 20546 57850 41051 1 1 1 1 0 2:28 PM CDT DERMATOPATHOLOGY LABORATORY Embedded Images 0 2:28 PM CDT DERMATOPATHOLOGY LABORATORY Pathology/Cytology TISSUE SPECIMEN FROM SKIN / Unknown 12/20/2019 12/21/2019 12:58 PM CDT Miscellaneous samples (specimen) TISSUE SPECIMEN FROM SKIN / Unknown 12/20/2019 12/21/2019 12:58 PM CDT Miscellaneous samples (specimen) TISSUE SPECIMEN FROM SKIN / Unknown 12/20/2019 12/21/2019 12:58 PM CDT Miscellaneous samples (specimen) TISSUE SPECIMEN FROM SKIN / Unknown 12/20/2019 12/21/2019 12:58 PM CDT Renaldo Muniz MD LAB - PATHOLOGY/CYTO LOGY ORDERABLES DERMATOPATHOLOGY LABORATORY [facility] - Department of Dermatology [facility], 5th Floor Lab [address] [phone] documented in this encounter Visit Diagnoses Not on filedocumented in this encounter Care Teams School Crossing Guard Relationship Specialty Start Date End Date Artemio Gaviria MD [address] [place] [address] PCP - General 06/26/19 documented as of this encounter
--- OUTSIDE RECORDS SUMMARY | 2024-09-25 06:43 | XMS_ITS | Patient Health Summary ---
Author Organization [facility] Address [address] [place] [address] Care Team Providers Care Dimension Stone Quarry Supervisor Name Role Phone Artemio Gaviria MD Primary Care Provider [phone] Note from [facility],non-owned Affiliates and Associated Physician Practices is amultiple site organization consisting of ambulatory clinics and hospital sitesin [place], [place], [place] and [place]. This disclosure is being madepursuant to the Care Everywhere program and may not contain all information available regarding this patient. Last updated 18.[facility] Social History Tobacco Use Types Packs/Day Years Used Date Smoking Tobacco: Never Assessed Sex and Gender Information Value Date Recorded Sex Assigned at Not on file Gender Identity Not on file Sexual Orientation Not on file Procedures * DERMATOPATHOLOGY(Performed 04/22/2022) * DERMATOPATHOLOGY(Performed 06/11/2021) * DERMATOPATHOLOGY(Performed 01/14/2021) * DERMATOPATHOLOGY(Performed 12/20/2019) * DERMATOPATHOLOGY(Performed 10/11/2019) Results * DERMATOPATHOLOGY (04/22/2022 12:00 AM CDT) Only the most recent of5 resultswithin the time period is included. Case Report Dermatopathology Report ? Case: [id number] ? Authorizing Provider: ??Renaldo Muniz MD ?Collected: ? 04/22/2022 12:00 AM ? Ordering Location: ? [facility] DermPath Lab ?Received: ?04/23/2022 04:41 PM ? Pathologist: ? Reny Clark MD ? Specimen: ?Skin, below left popliteal fossa ? 2 3:29 PM CDT DERMATOPATHOLOGY LABORATORY Final Diagnosis Specimen A. SKIN, below left popliteal fossa: COMPOUND MELANOCYTIC NEVUS, IRRITATED (D22.72) 2 3:29 PM T DERMATOPATHOLOGY LABORATORY Clinical History R/O Dysplastic Nevus 2 3:29 PM T DERMATOPATHOLOGY LABORATORY Gross Description Specimen A: Received is one formalin filled container labeled with the patient's name and designated below left popliteal fossa. The specimen consists of a shave biopsy measuring 6z5v2fo. Jar 0. 2 3:29 PM CDT DERMATOPATHOLOGY LABORATORY Microscopic Description Specimen A. SKIN, below left popliteal fossa: There is melanin pigment in the stratum corneum. There are nests of melanocytes at the dermal-epidermal junction and within the dermis. 2 3:29 PM T DERMATOPATHOLOGY LABORATORY Disclaimer An external and internal positive and negative controls are appropriate for the histochemical, immunohistochemical and immunofluorescence stain(s) in this case (if any), except where stated explicitly. The performance characteristics of the stain(s) cited in this report were developed and its performance characteristic determined by the Dermatopathology Laboratory at [facility], directed by Dr. Lashanda Parks. These tests need not be, and therefore are not, approved by the [place] Food and Drug Administration. The tests are used for clinical purposes. Billing Codes Specimen Charges Stain Charges 20856 1 2 3:29 PM CDT DERMATOPATHOLOGY LABORATORY Embedded Images 2 3:29 PM CDT DERMATOPATHOLOGY LABORATORY Pathology/Cytolog y TISSUE SPECIMEN FROM SKIN / Unknown 04/22/2022 04/23/2022 4:41 PM CDT Renaldo Muniz MD LAB - PATHOLOGY/CYTO LOGY ORDERABLES DERMATOPATHOLOGY LABORATORY [facility] - Department of Dermatology [facility] Medicine [address] [place] [address], [address] [phone] Care Teams Dimension Stone Quarry Supervisor Relationship Specialty Start Date End Date Artemio Gaviria MD [address] [place] [phone] PCP - General 06/26/19
--- OUTSIDE RECORDS SUMMARY | 2024-09-25 06:43 | XMS_ITS | Clinical Summary ---
Author Organization [facility] Address [address] [place] [address] Care Team Providers Care Health Policy Analyst Name Role Phone Artemio Gaviria MD Primary Care Provider [phone] Source Comments [facility],non-owned Affiliates and Associated Physician Practices is amultiple site organization consisting of ambulatory clinics and hospital sitesin [place], [place], [place] and [place]. This disclosure is being madepursuant to the Care Everywhere program and may not contain all information available regarding this patient. Last updated 18.[facility] [employer] Social History Tobacco Use Types Packs/Day Years Used Date Smoking Tobacco: Never Assessed Sex and Gender Information Value Date Recorded Sex Assigned at Not on file Gender Identity Not on file Sexual Orientation Not on file Plan of Treatment Health Maintenance Due Date Last Done Comments COLOGUARD (AGES 45-75) - COL ON CA SCREENING 1974 COLON MONITORING 1974 COLONOSCOPY - COLON CA SCREENING 1974 CT COLONOGRAPHY - COLON CA SCREENING 1974 Colorectal Cancer Screening 1974 FIT - COLON CA SCREENING 1974 FLEX SIG - COLON CA SCREENING 1974 LIPID TESTING 1974 MAMMOGRAM 1974 PAP SMEAR 1974 HIV SCREENING 1989 HEPATITIS C SCREENING 05/14/1992 DTAP/TDAP/TD VACCINES (1 - Tdap) 1993 HEPATITIS B VACCINE (1 of 3 - 19+ 3-dose series) 1993 COVID-19 VACCINE ( - 2023-2 5 season) 2024 INFLUENZA VACCINE (#1) 2024 PNEUMOCOCCAL VACCINE 50+ (1 of 1 - PCV) 2024 ZOSTER VACCINE (1 of 2) 2024 DEPRESSION SCREENING 08/30/2024 HIB VACCINE Aged Out No longer eligi ble based on patient's age to complete this topic HPV VACCINE Aged Out No longer eligi ble based on patient's age to complete this topic MENINGOCOCCAL (Group B) VACCINE Aged Out No longer eligible based on patient's age to complete this topic MENINGOCOCCAL VACCINE Aged Out No trace danielle eligible based on patient's age to complete this topic PNEUMOCOCCAL VACCINE Aged Out No long er eligible based on patient's age to complete this topic Care Teams Health Policy Analyst Relationship Specialty Start Date End Date Artemio Gaviria MD [address] [place] [phone] PCP - General 06/26/19
--- OUTSIDE RECORDS SUMMARY | 2024-09-25 06:43 | XMS_ITS | Referral Summary ---
Author Organization [facility] Address [address] [place] [address] Care Team Providers Care Wastewater Engineer Name Role Phone Artemio Gaviria MD Primary Care Provider [phone] Source Comments [facility],non-owned Affiliates and Associated Physician Practices is amultiple site organization consisting of ambulatory clinics and hospital sitesin [place], [place], [place] and [place]. This disclosure is being madepursuant to the Care Everywhere program and may not contain all information available regarding this patient. Last updated 18.[facility] Social History Tobacco Use Types Packs/Day Years Used Date Smoking Tobacco: Never Assessed Sex and Gender Information Value Date Recorded Sex Assigned at Not on file Gender Identity Not on file Sexual Orientation Not on file Plan of Treatment Not on file Care Teams Wastewater Engineer Relationship Specialty Start Date End Date Artemio Gaviria MD [address] [place] [phone] PCP - General 06/26/19
--- OUTSIDE RECORDS SUMMARY | 2024-09-25 06:43 | XMS_ITS | Encounter Summary ---
Author Organization [facility] Health Address [address] [place] [address] Care Team Providers Care Co Founder And President Name Role Phone Artemio Gaviria MD Primary Care Provider [phone] Encounter Details Date Type Department Care Team (Late st Contact Info) Description 06/12/2021 Lab Requisition [facility] Care DermPath Lab [address] [place] [id number] Renaldo Muniz MD [address] [place] [address] Social History Tobacco Use Types Packs/Day Years Used Date Smoking Tobacco: Never Assessed Sex and Gender Information Value Date Recorded Sex Assigned at Not on file Gender Identity Not on file Sexual Orientation Not on file documented as of this encounter Plan of Treatment Not on file documented as of this encounter Procedures Procedure Name Priority Date/Time Associated Diagnosis Comments DERMATOPATHOLOGY Routine 06/11/2021 12:0 0 AM CDT documented in this encounter Results * DERMATOPATHOLOGY (06/11/2021 12:00 AM CDT) Case Report Dermatopathology Report ? Case: [id number] ? Authorizing Provider: ??Renaldo Muniz MD ?Collected: ? 06/11/2021 12:00 AM ? Ordering Location: ? [facility] DermPath Lab ?Received: ?06/12/2021 01:27 PM ? Pathologist: ? Twila Helms, ? MD ? Specimens: ?? A) - Skin, left superior medial buttock ? B) - Skin, right flank in abdomen fold ? C) - Skin, right lateral lower abd fold ? 1 10:50 PM CDT DERMATOPATHOLOGY LABORATORY Final Diagnosis Specimen A. SKIN, left superior medial buttock: COMPOUND NEVUS WITH CONGENITAL FEATURES, IRRITATED (D22.5) Specimen B. 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 SKIN, right lateral lower abd fold: COMPOUND MELANOCYTIC NEVUS, IRRITATED (D22.5) 10:[address] [facility] DERMATOPATHOLOGY LABORATORY Clinical History A-C: R/O dys nevus 10:[address] [facility] DERMATOPATHOLOGY LABORATORY Gross Description Specimen A: Received is one formalin filled container labeled with the patient's name and designated left superior medial buttock. The specimen consists of a shave biopsy measuring 8x8x1 mm. Jar 0. Specimen B: Received is one formalin filled container labeled with the patient's name and designated right flank in abdomen fold. The specimen consists of a shave biopsy measuring 8x7x1 mm. Jar 0. Specimen C: Received is one formalin filled container labeled with the patient's name and designated right lateral lower abd fold. The specimen consists of a shave biopsy measuring 18x5x1 mm. Jar 0. 10:[address] [facility] DERMATOPATHOLOGY LABORATORY Microscopic Description Specimen A. SKIN, left superior medial buttock: There is melanin pigment in the stratum corneum. There are nests of melanocytes at the dermal-epidermal junction and within the dermis. Some melanocytes are splayed between collagen bundles and are localized around adnexal structures. MART-1/Melan-A immunohistochemical stain highlights the melanocytes as above. Specimen B. SKIN, right flank in abdomen fold: This is a compound nevus. There is melanin pigment within the stratum corneum. There is architectural disorder characterized by a lentiginous proliferation of melanocytes between irregular nests of cells along the dermal-epidermal junction, highlighted by MART-1/Melan-A immunohistochemical staining. There is underlying fibroplasia of the papillary dermis. The intradermal component is bland appearance and matures with depth. Original and deeper sections were reviewed. (Compound Joel's Nevus or Compound Dysplastic Nevus) There is abundant melanin within melanophages around the superficial vascular plexus. Specimen C. SKIN, right lateral lower abd fold: There is melanin pigment in the stratum corneum. There are nests of melanocytes at the dermal-epidermal junction and within the dermis. MART-1/Melan-A immunohistochemical stain highlights the melanocytes as above. 10:50 PM CDT DERMATOPATHOLOGY LABORATORY Disclaimer An external and internal positive and negative controls are appropriate for the histochemical, immunohistochemical and immunofluorescence stain(s) in this case (if any), except where stated explicitly. The performance characteristics of the stain(s) cited in this report were developed and its performance characteristic determined by the Dermatopathology Laboratory at [facility], directed by Dr. Lashanda Parks. These tests need not be, and therefore are not, approved by the [place] Food and Drug Administration. The tests are used for clinical purposes. Billing Codes Specimen Charges Stain Charges 84912 55704 06009 1 1 1 45577 93014 84707 1 1 1 10:50 PM CDT DERMATOPATHOLOGY LABORATORY Embedded Images 10:50 PM CDT DERMATOPATHOLOGY LABORATORY Pathology/Cytology TISSUE SPECIMEN FROM SKIN / Unknown 06/11/2021 06/12/2021 1:27 PM CDT Miscellaneous samples (specimen) TISSUE SPECIMEN FROM SKIN / Unknown 06/11/2021 06/12/2021 1:27 PM CDT Miscellaneous samples (specimen) TISSUE SPECIMEN FROM SKIN / Unknown 06/11/2021 06/12/2021 1:27 PM CDT Renaldo Muniz MD LAB - PATHOLOGY/CYTO LOGY ORDERABLES DERMATOPATHOLOGY LABORATORY [facility] - Department of Dermatology [facility] Medicine [address] [place] [address], [address] [phone] documented in this encounter Visit Diagnoses Not on filedocumented in this encounter Care Teams Co Founder And President Relationship Specialty Start Date End Date Artemio Gaviria MD [address] [place] [address] PCP - General 06/26/19 documented as of this encounter
--- OUTSIDE RECORDS SUMMARY | 2024-09-25 06:43 | XMS_ITS | Encounter Summary ---
Author Organization [facility] Health Address [address] [place] [address] Care Team Providers Care Diecast Machine Operator Name Role Phone Artemio Gaviria MD Primary Care Provider [phone] Encounter Details Date Type Department Care Team (Late st Contact Info) Description 04/23/[address] [facility] Care DermPath Lab [address] [facility] [place] [phone] Renaldo [place] [address] Social History Tobacco Use Types Packs/Day Years Used Date Smoking Tobacco: Never Assessed Sex and Gender Information Value Date Recorded Sex Assigned at Not on file Gender Identity Not on file Sexual Orientation Not on file documented as of this encounter Plan of Treatment Not on file documented as of this encounter Procedures Procedure Name Priority Date/Time Associated Diagnosis Comments DERMATOPATHOLOGY Routine 04/22/2022 12:0 0 AM CDT documented in this encounter Results * DERMATOPATHOLOGY (04/22/2022 12:00 AM CDT) Case Report Dermatopathology Report ? Case: [id number] ? Authorizing Provider: ??Renaldo Muniz MD ?Collected: ? 04/22/2022 12:00 AM ? Ordering Location: ? [facility] DermPath Lab ?Received: ?04/23/2022 04:41 PM ? Pathologist: ? Reny Clark MD ? Specimen: ?Skin, below left popliteal fossa ? 2 3:29 PM T DERMATOPATHOLOGY LABORATORY Final Diagnosis Specimen A. SKIN, below left popliteal fossa: COMPOUND MELANOCYTIC NEVUS, IRRITATED (D22.72) 2 3:29 PM T DERMATOPATHOLOGY LABORATORY Clinical History R/O Dysplastic Nevus 2 3:29 PM T DERMATOPATHOLOGY LABORATORY Gross Description Specimen A: Received is one formalin filled container labeled with the patient's name and designated below left popliteal fossa. The specimen consists of a shave biopsy measuring [id number]. Jar 0. 2 3:29 PM T DERMATOPATHOLOGY LABORATORY Microscopic Description Specimen [...] characteristic determined by the Dermatopathology Laboratory at [facility], directed by Dr. Lashanda Parks. These tests need not be, and therefore are not, approved by the [place] Food and Drug Administration. The tests are used for clinical purposes. Billing Codes Specimen Charges Stain Charges 62067 1 2 3:29 PM CDT DERMATOPATHOLOGY LABORATORY Embedded Images 2 3:29 PM CDT DERMATOPATHOLOGY LABORATORY Pathology/Cytolog y TISSUE SPECIMEN FROM SKIN / Unknown 04/22/2022 04/23/2022 4:41 PM CDT Renaldo Muniz MD LAB - PATHOLOGY/CYTO LOGY ORDERABLES DERMATOPATHOLOGY LABORATORY [facility] - Department of Dermatology [facility] Medicine [address] [place] [address], [address] [phone] documented in this encounter Visit Diagnoses Not on filedocumented in this encounter Care Teams Diecast Machine Operator Relationship Specialty Start Date End Date Artemio Gaviria MD [address] [place] [address] PCP - General 06/26/19 documented as of this encounter
--- OUTSIDE RECORDS SUMMARY | 2024-09-25 06:43 | XMS_ITS | Referral Summary ---
Author Organization [facility] Address [address] [place] [address] Care Team Providers Care Rotary Pump Operator Name Role Phone Mary Vazquez MD Primary Care Provider Encounters Date Type Department Care Team Description 09/06/2024 9:52 AM SENIOR PROFESSIONAL SERVICES CONSULTANT - 09/06/2024 11:59 PM SENIOR PROFESSIONAL SERVICES CONSULTANT Hospital Encounter [address] [address] Chronic diastolic heart failure (HCC); SOB (shortness of breath); Primary hypertension Discharge Disposition: Discharge to home or self care 09/06/2024 9:45 AM SENIOR PROFESSIONAL SERVICES CONSULTANT Lab [facility] Endocrinology Metabolism and Lipid [address] [place] [address] [place] [address] Chronic diastolic heart failure (HCC); SOB (shortness of breath); Primary hypertension 09/06/2024 9:00 AM SENIOR PROFESSIONAL SERVICES CONSULTANT Office Visit [facility] Cardiology [address] [place] [address] [place] [phone] Jayesh Betancur MD Chronic diastolic heart failure (HCC) (Primary Dx); SOB (shortness of breath); Primary hypertension 08/21/[address] [facility] Cardiology [address] [place] [address] Nadira Leyva NP from Last 3 Months Allergies Active Allergy Reactions Criticality Noted Date Comments Amoxicillin Rash Medium 02/08/2018 Sulfa (Sulfonamide Antibiotics) Hives,Rash,Redness Medium Medications cyanocobalamin (Vitamin B-12) 1,000 mcg tabletIndicati ons:Prevention of Vitamin B12 Deficiency Take 1 tablet (1,000 mcg total) by mouth daily Active ferrous sulfate ER 324 mg (65 mg iron) EC tabletIndicati ons:Iron Deficiency Anemia Take 65 mg by mouth Active aspirin 81 mg chewable tablet Take 1 tablet (81 mg total) by mouth daily Active hydroxychloroq uine (PLAQUENIL) 200 mg tablet TAKE 1 TABLET (200 MG TOTAL) BY MOUTH 2 TIMES A DAY. 180 tablet 1 4 Active furosemide (LASIX) 40 mg tablet Take 1 tablet (40 mg total) by mouth daily 4 Active spironolactone (ALDACTONE) 25 mg tablet Take 0.5 tablets (12.5 mg total) by mouth daily 4 Active empagliflozin (JARDIANCE) 10 mg tablet Take 1 tablet (10 mg total) by mouth daily 90 tablet 3 4 Active valsartan (DIOVAN) 80 mg tablet Take 1 tablet (80 mg total) by mouth daily 30 tablet 11 5 09/06/19 26 Active rosuvastatin (CRESTOR) 10 mg tablet Take 1 tablet (10 mg total) by mouth daily 90 tablet 3 5 09/06/19 26 Active Entresto 24-26 mg tablet Take 1 tablet by mouth every 12 (twelve) hours 4 09/06/19 25 Discontinued Active Problems Problem Noted Date Diagnosed Date Nonrheumatic tricuspid valve regurgitation 06/05 Venous insufficiency 06/05/2024 Chronic diastolic heart failure 06/05/2024 Subclinical hyperthyroidism 04/26/2020 Other dietary vitamin B12 deficiency anemia 03/31 Microcytic anemia 01/19/2020 Malignant melanoma of torso excluding breast (CM S/HCC) 07/10/2019 Overview (09/14/2021): Pt has history of melanoma upper back 06/22/19, s/p sentinel LN dissection with 1 of [address] +, treated with immunotherapy (Opdivo) from 07/18-04/18 Morbid obesity 12/14/2017 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 Was on AZA-stopped due to being stable. Has history of pleural effusion, was following with Sawmill Relief Worker, but needs to establish with a new one. Sister has SLE with LN s/p Cytoxan (Minyd Arguello) Immunizations Name Administration Dates Next Due Influenza, Quadrivalent, Mica l Culture-based MDCK, Preservative Free, Antibiotic Free, Intramuscular 06/18/2023 Influenza, Quadrivalent, Spl it, Intramuscular 06/19/2020 Influenza, Quadrivalent, Spl it, Preservative Free, Intramuscular 2022,06/18/2020,06/03/2016 Influenza, Trivalent, IM (MDV) 06/10/2015 Influenza, Trivalent, Preser vative Free, Intramuscular 06/22/2024 Influenza, Unspecified 05/30/2021,2018,06/10/2018,05/26 Pfizer SARS-CoV-2 Monovalent Vaccination (12+ Yrs) PURPLE 07/18/2021,12/05/2020,11/07/2020 Social History Tobacco Use Types Packs/Day Years Used Date Smoking Tobacco: Never Smokeless Tobacco: Never Tobacco Cessation:Counseling Given: Not Answered Alcohol Use Standard Drinks/Week Comments Yes 0 (1 standard drink = 0.6 oz pur e alcohol) AUDIT-C Answer Date Recorded Q1: How often do you have a drink containing alcohol? Never 07/20/2023 Q2: How many drinks containi ng alcohol do you have on a typical day when you are drinking? Patient does not drink Q3: How often do you have si x or more drinks on one occasion? Never 07/20/2023 PHQ-2 Answer Date Recorded PHQ-2 Total Score (If total score is 3 or more points, staff should administer the PHQ-9) 0 09/12/2021 Comments No Sex and Gender Information Value Date Recorded Sex Assigned at Not on file Legal Sex Female 6:34 AM SENIOR PROFESSIONAL SERVICES CONSULTANT Gender Identity Female 01/18/2022 11:01 PM CDT Sexual Orientation Straight 01/18/2022 11 :01 PM CDT Last Filed Vital Signs Vital Sign Reading Time Taken Comments Blood Pressure 98/68 09/06/2024 8:42 AM SENIOR PROFESSIONAL SERVICES CONSULTANT Pulse 73 09/06/2024 8:42 AM SENIOR PROFESSIONAL SERVICES CONSULTANT Temperature 36.5 ??C (97.7 ??F) 07/20/2023 7:58 AM CS T Respiratory Rate 14 01/26/2023 8:26 AM CDT Oxygen Saturation 96% 09/06/2024 8:42 AM SENIOR PROFESSIONAL SERVICES CONSULTANT Inhaled Oxygen Concentration - - Weight 114.1 kg (251 lb 9.6 oz) 09/06/2024 8:42 AM SENIOR PROFESSIONAL SERVICES CONSULTANT Height 162.6 cm (5' 4 ) 09/06/2024 8:42 AM SENIOR PROFESSIONAL SERVICES CONSULTANT Body Mass Index 43.19 09/06/2024 8:42 AM SENIOR PROFESSIONAL SERVICES CONSULTANT Plan of Treatment Not on file Procedures Procedure Name Priority Date/Time Associated Diagnosis Comments CBC WITH DIFF, BJ Routine 09/06/2024 9:5 2 AM SENIOR PROFESSIONAL SERVICES CONSULTANT Chronic diastolic heart failure (HCC) SOB (shortness of breath) Primary hypertension APOLIPOPROTEIN B Routine 09/06/2024 9:52 AM SENIOR PROFESSIONAL SERVICES CONSULTANT Chronic diastolic heart failure (HCC) SOB (shortness of breath) Primary hypertension PRO B-TYPE NATRIURETIC PEPTIDE Routine 09/06/2024 9:52 AM SENIOR PROFESSIONAL SERVICES CONSULTANT Chronic diastolic heart failure (HCC) SOB (shortness of breath) Primary hypertension LIPOPROTEIN A (LPA) Routine 09/06/2024 9 :52 AM SENIOR PROFESSIONAL SERVICES CONSULTANT Chronic diastolic heart failure (HCC) SOB (shortness of breath) Primary hypertension IRON PROFILE W/ IBC Routine 09/06/2024 9 :52 AM SENIOR PROFESSIONAL SERVICES CONSULTANT Chronic diastolic heart failure (HCC) SOB (shortness of breath) Primary hypertension HEMOGLOBIN A1C Routine 09/06/2024 9:52 AM SENIOR PROFESSIONAL SERVICES CONSULTANT Chronic diastolic heart failure (HCC) SOB (shortness of breath) Primary hypertension COMPREHENSIVE METABOLIC PANEL Routine 09/06/2024 9:52 AM SENIOR PROFESSIONAL SERVICES CONSULTANT Chronic diastolic heart failure (HCC) SOB (shortness of breath) Primary hypertension LIPID PANEL Routine 09/06/2024 9:52 AM SENIOR PROFESSIONAL SERVICES CONSULTANT Chronic diastolic heart failure (HCC) SOB (shortness of breath) Primary hypertension CARDIOLOGY DOCUMENT SCAN Routine 08/15/2024 4:06 PM SENIOR PROFESSIONAL SERVICES CONSULTANT CARDIOLOGY DOCUMENT SCAN Routine 08/14/2024 4:05 PM SENIOR PROFESSIONAL SERVICES CONSULTANT CARDIOLOGY DOCUMENT SCAN Routine 08/11/2024 4:03 PM SENIOR PROFESSIONAL SERVICES CONSULTANT from Last 3 Months Results * (ABNORMAL) CBC with Diff, BJ (09/06/2024 9:52 AM SENIOR PROFESSIONAL SERVICES CONSULTANT) White Blood Count 4.10 3.80 - 9.90 K/cumm [facility] Comment: Red Blood Count 6.41(H) 3.90 - 5.20 M/cumm [facility] Hemoglobin 14.9 11.9 - 15.5 g/dL [facility] Hematocrit 51.2(H) 35.6 - 45.5 % [facility] Platelet Count 146(L) 150 - 400 K/cumm [facility] MCV 79.9(L) 81.3 - 96.4 fl [facility] MCH 23.2(L) 27.1 - 33.3 pg [facility] MCHC 29.1(L) 32.3 - 35.7 g/dL [facility] MPV Not Measured 9.1 - 12.3 fl [facility] RDW SD 55.6(H) 35.7 - 48.1 fL [facility] RDW CV 19.9(H) 11.1 - 14.9 % [facility] Neut Abs 2.6 1.5 - 6.5 K/cumm [facility] Imm Gran Abs 0.00 0.00 - 0.10 K/cumm [facility] Lymph Abs 1.00 0.80 - 3.30 K/cumm [facility] Lake Abs 0.30 0.20 - 0.80 K/cumm [facility] Eos Abs 0.10 0.00 - 0.50 K/cumm [facility] Baso Abs 0.00 0.00 - 0.10 K/cumm [facility] Neut Pct 64.1 % [facility] Imm Gran Pct 0.2 % [facility] Lymph Pct 24.6 % [facility] Lake Pct 8.0 % [facility] Eos Pct 2.4 % [facility] Baso Pct 0.7 % [facility] NRBC Abs 0.00 0.00 - 0.01 K/cumm [facility] 09/06/2024 9:52 AM SENIOR PROFESSIONAL SERVICES CONSULTANT 09/06/2024 11:49 AM SENIOR PROFESSIONAL SERVICES CONSULTANT Narrative [facility] - 09/07/2024 8:35 AM SENIOR PROFESSIONAL SERVICES CONSULTANT Testing performed at [facility] - [address] [place] [id number]. us Jayesh Betancur MD LAB BLOOD ORDERABLES Final R esult [facility] * Pro B-type natriuretic peptide (09/06/2024 9:52 AM SENIOR PROFESSIONAL SERVICES CONSULTANT) NT-proBNP <50 <=300 pg/mL Comment: Interpretive Comments: A. Dyspnea in Acute Care Setting All Ages: ?< 300 pg/ml, acute heart failure unlikely. < 50 yrs: ?300 - 450 pg/ml, further investigation warranted. ? > 450 pg/ml, acute heart failure likely. 50 - 74 yrs: ? 300 - 900 pg/ml, further investigation warranted. ? > 900 pg/ml, acute heart failure likely . > or = 75 yrs: ? 450 - 1800 pg/ml, further investigation warranted. ? > 1800 pg/ml, acute heart failure likely. B. Non-acute Setting < 75 yrs ? < 125 pg/ml, rules out heart failure. ? > or = 125 pg/ml, further investigation warranted. > or = 75 yrs ?< 450 pg/ml, rules out heart failure. ? > or = 450 pg/ml, further investigation warranted. - Knowledge of each individual patient's NT-proBNP range may be more useful than using similar cut-points for every patient. Please note that marked elevations in NT-proBNP levels may be observed in state other than Left Ventricular Congestive Failure, including: acute coronary syndromes, right heart strain/failure (including pulmonary embolism and cor pulmonale), critical illness, renal failure, as well as advanced age. - References: 1. Bony LAMAR et.al. Eur Heart J. 2006:27:330-337. 2. Sandra RW, Dillon GASTELUM. J. AM Kerline Cardiol: Cardiovasc Imag. 2009;2: 216- 225. Interpretive Data Last Revised Date: 2018. Blood 09/06/2024 9:52 AM SENIOR PROFESSIONAL SERVICES CONSULTANT 09/06/2024 11:28 AM SENIOR PROFESSIONAL SERVICES CONSULTANT Jayesh Betancur MD LAB BLOOD ORDERABLES Final R esult Performing Organization Address City/[facility] Co de Phone Number [facility] Department [place] [address] * Iron profile w/ IBC (09/06/2024 9:52 AM SENIOR PROFESSIONAL SERVICES CONSULTANT) Iron 96 30 - 160 ug/dL [facility] TIBC 292 220 - 420 ug/dL [facility] Iron saturation 32.9 11.0 - 52.0 % [facility] Blood 09/06/2024 9:52 AM SENIOR PROFESSIONAL SERVICES CONSULTANT 09/06/2024 11:49 AM SENIOR PROFESSIONAL SERVICES CONSULTANT Jayesh Betancur MD LAB BLOOD ORDERABLES Final R esult [facility] * Apolipoprotein B, serum (09/06/2024 9:52 AM SENIOR PROFESSIONAL SERVICES CONSULTANT) Pathologist [facility] Apolipoprotein B 90 mg/dL [facility] Comment: REFERENCE VALUE Desirable: <90 Above Desirable: 90-99 Borderline high: 100-119 High: 120-139 Very high: > or = 140 Test Performed by: [address] [address] Photographer Finish: Yusuf Lorenzo Ph.D.; CLIA# [id number] Blood 09/06/2024 9:52 AM SENIOR PROFESSIONAL SERVICES CONSULTANT 09/06/2024 1:01 PM SENIOR PROFESSIONAL SERVICES CONSULTANT us Jayesh Betancur MD LAB BLOOD ORDERABLES Final R esult [facility] Department [place] [address] [facility] * Lipoprotein a (LPa) (09/06/2024 9:52 AM SENIOR PROFESSIONAL SERVICES CONSULTANT) Pathologist [facility] Lipoprotein (A) 37.9 <=75.0 nmol/L [facility] Comment: An LP(a) level >100 nmol/L is considered an atherosclerotic cardiovascular disease (ASCVD) risk-enhancing factor by the National Lipid Association and corresponds to the 80th population percentile in Caucasians. ??The corresponding 80th population percentile in -Americans is 150 nmol/L, but it is currently unclear whether a different risk threshold should be applied (J Clin Lipidololgy 2019; 13:374-392). This test was developed using a commercially available kit and its performance characteristics have been determined by [facility]. ??This assay in units of nmol/L has not been cleared or approved by the FDA, although they are provided by the greenhouse staff and widely accepted as the preferred units for reporting. ??[facility] is regulated under CLIA as qualified to perform high-complexity testing. Blood 09/06/2024 9:52 AM SENIOR PROFESSIONAL SERVICES CONSULTANT 09/06/2024 11:49 AM SENIOR PROFESSIONAL SERVICES CONSULTANT Jayesh Betancur MD LAB BLOOD ORDERABLES Final R esult Performing Organization Address [facility] Co de Phone Number [facility] * (ABNORMAL) Hemoglobin A1c (09/06/2024 9:52 AM SENIOR PROFESSIONAL SERVICES CONSULTANT) HbA1c 6.1(H) 5.1 - 5.6 % [facility] Comment: HBA1C 5.1 - 5.6 = NORMAL HBA1C 5.7 - 6.4 = PREDIABETES HBA1C >=6.5 = PROVISIONAL DIAGNOSIS OF DIABETES Estimated Average Glucose 128 mg/dL [facility] Blood 09/06/2024 9:52 AM SENIOR PROFESSIONAL SERVICES CONSULTANT 09/06/2024 11:49 AM SENIOR PROFESSIONAL SERVICES CONSULTANT Jayesh Betancur MD LAB BLOOD ORDERABLES Final R esult Performing Organization Address [facility] de Phone Number [facility] * (ABNORMAL) Lipid panel (09/06/2024 9:52 AM SENIOR PROFESSIONAL SERVICES CONSULTANT) Triglycerides 161(H) <150 mg/dL [facility] Comment: Desirable: <150 mg/dL, fasting <175 mg/dL, non-fasting Persistently elevated triglycerides may enhance atherosclerotic cardiovascular disease. Total Cholesterol 172 <200 mg/dL [facility] Total HDL-C Direct 36(L) >50 mg/dL [facility] Comment: A low HDL-C may be inidcative of metabolic syndrome and enhance atherosclerotic cardiovascular disease risk. Non-HDL cholesterol 136 <220 mg/dL [facility] Friedewald LDL Chol 104 <190 mg/dL [facility] Comment: The Friedewald equation is accurate in most patients when triglycerides are less than 150 mg/dL. ??Consider the use of non-HDL-C or Apo B to help estimate atherosclerotic cardiovascular diesase risk if triglycerides are elevated. Blood 09/06/2024 9:52 AM SENIOR PROFESSIONAL SERVICES CONSULTANT 09/06/2024 11:49 AM SENIOR PROFESSIONAL SERVICES CONSULTANT Narrative [facility] - 09/06/2024 1:32 PM SENIOR PROFESSIONAL SERVICES CONSULTANT Current interpretive data was last updated August 01, 2021. For adults ages 40-79, the ACC/AHA recommends discussing your 10-year atherosclerotic cardiovascular disease risk with your health care provider. ??https://www.acc.org/ASCVDApp us Jayesh Betancur MD LAB BLOOD ORDERABLES Final R esult [facility] * (ABNORMAL) Comprehensive metabolic panel (09/06/2024 9:52 AM SENIOR PROFESSIONAL SERVICES CONSULTANT) Total Protein 9.0(H) 6.1 - 8.4 g/dL [facility] Albumin 4.5 3.5 - 5.2 g/dL [facility] Calcium 10.0 8.6 - 10.3 mg/dL [facility] BUN 37(H) 7 - 23 mg/dL [facility] Total Bilirubin 0.60 0.20 - 1.40 mg/dL [facility] Alk Phos, Total 123 35 - 129 IU/L [facility] AST (SGOT) 34 11 - 47 IU/L [facility] ALT (SGPT) 33 6 - 53 IU/L [facility] Creatinine 1.24(H) 0.60 - 1.10 mg/dL [facility] Sodium 142 135 - 145 mmol/L [facility] Potassium 4.9 3.3 - 5.1 mmol/L [facility] Chloride 98 95 - 107 mmol/L [facility] CO2 Content 29 21 - 29 mmol/L [facility] Glucose 79 64 - 99 mg/dL [facility] Comment: NONFASTING GLUCOSE RANGE = 64-199 mg/dL FASTING GLUCOSE 64 - 99 = NORMAL FASTING GLUCOSE 100 - 125 = IMPAIRED FASTING GLUCOSE FASTING GLUCOSE >=126 = PROVISIONAL DIAGNOSIS OF DIABETES eGFR 53.0(L) >60.0 mL/min/1.7 3 m2 [facility] Blood 09/06/2024 9:52 AM SENIOR PROFESSIONAL SERVICES CONSULTANT 09/06/2024 11:49 AM SENIOR PROFESSIONAL SERVICES CONSULTANT Jayesh Betancur MD LAB BLOOD ORDERABLES Final R esult [facility] * Cardiology Document Scan (08/15/2024 4:06 PM SENIOR PROFESSIONAL SERVICES CONSULTANT) Anatomical Region Laterality Modality Other Nadira Leyva NP CV CARDIAC SERVICES PROCEDUR ES Final Result * Cardiology Document Scan (08/14/2024 4:05 PM SENIOR PROFESSIONAL SERVICES CONSULTANT) Anatomical Region Laterality Modality Other Nadira Leyva NP CV CARDIAC SERVICES PROCEDUR ES Final Result * Cardiology Document Scan (08/11/2024 4:03 PM SENIOR PROFESSIONAL SERVICES CONSULTANT) Anatomical Region Laterality Modality Other Nadira Leyva NP CV CARDIAC SERVICES PROCEDUR ES Final Result from Last 3 Months Insurance [email or web address] [facility] [place] [address] [facility] Care Teams Rotary Pump Operator Relationship Specialty Start Date End Date Mary Vazquez MD PCP - General Family Practice 03/05/20
--- OUTSIDE RECORDS SUMMARY | 2024-09-25 06:43 | XMS_ITS | Encounter Summary ---
Author Organization [facility] Address [address] [place] [address] Care Team Providers Care Concert Singer Name Role Phone Artemio Gaviria MD Primary Care Provider [phone] Encounter Details Date Type Department Care Team (Late st Contact Info) Description 10/12/[address] [facility] Care DermPath Lab [address] [place] [id number] Renaldo Muniz [place] [address] Social History Tobacco Use Types Packs/Day Years Used Date Smoking Tobacco: Never Assessed Sex and Gender Information Value Date Recorded Sex Assigned at Not on file Gender Identity Not on file Sexual Orientation Not on file documented as of this encounter Plan of Treatment Not on file documented as of this encounter Procedures Procedure Name Priority Date/Time Associated Diagnosis Comments DERMATOPATHOLOGY Routine 10/11/2019 12:0 0 AM SHOW HOST OR HOSTESS documented in this encounter Results * DERMATOPATHOLOGY (10/11/2019 12:00 AM SHOW HOST OR HOSTESS) Case Report Dermatopathology Report ? Case: [id number] ? Authorizing Provider: ??Renaldo Muniz MD ?Collected: ? 10/11/2019 12:00 AM ? Ordering Location: ? [facility] ?Received: ?10/12/2019 12:56 PM ? Pathologist: ? Reny Clark MD ? Specimens: ?? A) - Skin, right parapsinal lower back ? B) - Skin, right mid lat back ? C) - Skin, right lower back ? 0 2:11 PM SHOW HOST OR HOSTESS DERMATOPATHOLOGY LABORATORY Final Diagnosis Specimen A. SKIN, right parapsinal lower back: LENTIGINOUS MELANOCYTIC NEVUS, JUNCTIONAL TYPE, IRRITATED (JUNCTIONAL MELANOCYTIC NEVUS WITH ARCHITECTURAL DISORDER) (D22.5) Specimen B. SKIN, right mid lat back: LENTIGINOUS MELANOCYTIC NEVUS, COMPOUND TYPE, IRRITATED (COMPOUND MELANOCYTIC NEVUS WITH ARCHITECTURAL DISORDER) (D22.5) Specimen C. SKIN, right lower back: LENTIGINOUS MELANOCYTIC NEVUS, COMPOUND TYPE, IRRITATED (COMPOUND MELANOCYTIC NEVUS WITH ARCHITECTURAL DISORDER) (D22.5) 0 2:11 PM [facility] DERMATOPATHOLOGY LABORATORY Clinical History A-C: R/O dysplastic lentinginous nevus 0 2:11 PM [facility] DERMATOPATHOLOGY LABORATORY Gross Description Specimen A: Received is one formalin filled container labeled with the patient's name and designated right parapsinal lower back. The specimen consists of a shave biopsy measuring 10x8x2 mm. Jar 0. Specimen B: Received is one formalin filled container labeled with the patient's name and designated right mid lat back. The specimen consists of a shave biopsy measuring 7x7x1 mm. Jar 0. Specimen C: Received is one formalin filled container labeled with the patient's name and designated right lower back. The specimen consists of a shave biopsy measuring 10x7x1 mm. Jar 0. 0 2:11 PM [facility] DERMATOPATHOLOGY LABORATORY Microscopic Description Specimen A. SKIN, right parapsinal lower back: This is a junctional nevus. There is melanin pigment in the stratum corneum. There is architectural disorder characterized by a lentiginous proliferation of melanocytes between irregular nests of cells along the dermal-epidermal junction. There is underlying fibroplasia of the papillary dermis. (Junctional Joel's Nevus or Junctional Dysplastic Nevus) Specimen B. SKIN, right mid lat back: This is a compound nevus. [...] or Compound Dysplastic Nevus) Specimen C. SKIN, right lower back: This is a compound nevus. There is melanin pigment in the stratum corneum. There is architectural disorder characterized by a lentiginous proliferation of melanocytes between irregular nevus nests of cells along the dermal epidermal junction. There is underlying fibroplasia of the papillary dermis. The intradermal component is bland in appearance and matures with depth. (Compound Joel's Nevus or Compound Dysplastic Nevus) 0 2:11 PM [facility] DERMATOPATHOLOGY LABORATORY Disclaimer An external and internal positive and negative controls are appropriate for the histochemical, immunohistochemical and immunofluorescence stain(s) in this case (if any), except where stated explicitly. The performance characteristics of the stain(s) cited in this report were developed and its performance characteristic determined by the Dermatopathology Laboratory at [facility], directed by Dr. Lashanda Parks. These tests need not be, and therefore are not, approved by the [place] Food and Drug Administration. The tests are used for clinical purposes. Billing Codes Specimen Charges Stain Charges 12232 [id number] 1 1 1 0 2:11 PM SHOW HOST OR HOSTESS DERMATOPATHOLOGY LABORATORY Embedded Images 0 2:11 PM SHOW [facility]OST [facility] HOSTESS DERMATOPATHOLOGY LABORATORY Pathology/Cytology TISSUE SPECIMEN FROM SKIN / Unknown 10/11/2019 10/12/2019 12:56 PM SHOW HOST OR HOSTESS Miscellaneous samples (specimen) TISSUE SPECIMEN FROM SKIN / Unknown 10/11/2019 10/12/2019 12:56 PM SHOW HOST OR HOSTESS Miscellaneous samples (specimen) TISSUE SPECIMEN FROM SKIN / Unknown 10/11/2019 10/12/2019 12:56 PM SHOW HOST OR HOSTESS Renaldo Muniz MD LAB - PATHOLOGY/CYTO LOGY ORDERABLES Performing Organization Address City/State/[facility] Co de Phone Number DERMATOPATHOLOGY LABORATORY [facility] - Department of Dermatology [address] [place] [address], 5th Floor Lab [address] [phone] documented in this encounter Visit Diagnoses Not on filedocumented in this encounter Care Teams Concert Singer Relationship Specialty Start Date End Date Artemio Gaviria MD [address] [place] [address] PCP - General 06/26/19 documented as of this encounter
--- OUTSIDE RECORDS SUMMARY | 2024-09-25 06:43 | XMS_ITS | Clinical Summary ---
Author Organization 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 Found to be [place] +, +anti SSA, [employer], Sm. Was on AZA-stopped due to being stable. Has history of pleural effusion, was following with [employer] [facility], but needs to establish with a new one. Sister has SLE with LN s/p Cytoxan (Mindy Arguello) Encounters Date Type Department Care Team Description 09/06/2024 9:52 AM FOSTER WINDER - 09/06/2024 11:59 PM FOSTER WINDER Hospital Encounter [address] [address] Chronic diastolic heart failure (HCC); SOB (shortness of breath); Primary hypertension Discharge Disposition: Discharge to home or self care 09/06/2024 9:45 AM FOSTER WINDER Lab [facility] Endocrinology Metabolism and Lipid [address] [facility] 8th [place] [address] [place] [address] Chronic diastolic heart failure (HCC); SOB (shortness of breath); Primary hypertension 09/06/2024 9:00 AM FOSTER WINDER Office Visit [facility] Cardiology [address] [facility] Medicine 8th [place] [address] [place] [address] Jayesh Betancur MD Chronic diastolic heart failure (HCC) (Primary Dx); SOB (shortness of breath); Primary hypertension 08/21/2024 Orders Only [facility] Cardiology [address] [place] [address] Nadira Leyva NP from Last 3 Months Immunizations Name Administration Dates Next Due Influenza, Quadrivalent, Mica l Culture-based MDCK, Preservative Free, Antibiotic Free, Intramuscular 06/18/2023 Influenza, Quadrivalent, Spl it, Intramuscular 06/19/2020 Influenza, Quadrivalent, Spl it, Preservative Free, Intramuscular 2022,06/18/2020,06/03/2016 Influenza, Trivalent, IM (MDV) 06/10/2015 Influenza, Trivalent, Preser vative Free, Intramuscular 06/22/2024 Influenza, Unspecified 05/30/2021,2018,06/10/2018,05/26 Pfizer SARS-CoV-2 Monovalent Vaccination (12+ Yrs) PURPLE 07/18/2021,12/05/2020,11/07/2020 Surgical History Surgery Date Site/Laterality Comments SECTION C section Medical History Medical History Date Comments Malignant 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 [place] Level IV + one node N O distant mets Hypertension Anemia Lupus 2013 dx Melanoma (HCC) 2019 removed Pneumonia Family History Medical History Relation Name Comments Lupus Sister Systemic lupus erythematosus; Relation Name Status Comments Father Alive Mother Alive Sister Alive Social [...] you are drinking? Patient does not drink 3 Q3: How often do you have si x or more drinks on one occasion? Never 07/20/2023 PHQ-2 Answer Date Recorded PHQ-2 Total Score (If total score is 3 or more points, staff should administer the PHQ-9) 0 09/12/2021 Comments No Sex and Gender Information Value Date Recorded Sex Assigned at Not on file Legal Sex Female 6:34 AM FOSTER WINDER Gender Identity Female 01/18/2022 11:01 PM CDT Sexual Orientation Straight 01/18/2022 11 :01 PM CDT Obstetrics History Last Filed Vital Signs Vital Sign Reading Time Taken Comments Blood Pressure 98/68 09/06/2024 8:42 AM FOSTER WINDER Pulse 73 09/06/2024 8:42 AM FOSTER WINDER Temperature 36.5 ??C (97.7 ??F) 07/20/2023 7:58 AM CS T Respiratory Rate 14 01/26/2023 8:26 AM CDT Oxygen Saturation 96% 09/06/2024 8:42 AM FOSTER WINDER Inhaled Oxygen Concentration - - Weight 114.1 kg (251 lb 9.6 oz) 09/06/2024 8:42 AM FOSTER WINDER Height 162.6 cm (5' 4 ) 09/06/2024 8:42 AM FOSTER WINDER Body Mass Index 43.19 09/06/2024 8:42 AM FOSTER WINDER Plan of Treatment Health Maintenance Due Date Last Done Comments Breast Cancer Screening-Mammogram 1974 Cervical Cancer Screening 1974 Colon Cancer Screening-Colonoscopy 1974 Hepatitis C Screening 1974 Pneumococcal vaccine <65 (1 of 2 - PCV) 1980 DTaP/Tdap/Td Vaccine (1 - Tdap) 1985 Hepatitis B Screening 1992 Regular Well Visit/Exam 18-64 1992 Zoster Vaccine (1 of 2) 1993 Depression Screening 09/12/2022 09/12/2021, 02/08/2018, 02/08/2018 Covid-19 Vaccine (4 - 2023-2 5 season) 2024 07/18/2021, 12/05/2020, 11/07/2020 Influenza Vaccine Completed 06/22/2024, , 2022, Additional history exists Procedures Procedure Name Priority Date/Time Associated Diagnosis Comments CBC WITH DIFF, BJ Routine 09/06/2024 9:5 2 AM FOSTER WINDER Chronic diastolic heart failure (HCC) SOB (shortness of breath) Primary hypertension APOLIPOPROTEIN B Routine 09/06/2024 9:52 AM FOSTER WINDER Chronic diastolic heart failure (HCC) SOB (shortness of breath) Primary hypertension PRO B-TYPE NATRIURETIC PEPTIDE Routine 09/06/2024 9:52 AM FOSTER WINDER Chronic diastolic heart failure (HCC) SOB (shortness of breath) Primary hypertension LIPOPROTEIN A (LPA) Routine 09/06/2024 9 :52 AM FOSTER WINDER Chronic diastolic heart failure (HCC) SOB (shortness of breath) Primary hypertension IRON PROFILE W/ IBC Routine 09/06/2024 9 :52 AM FOSTER WINDER Chronic diastolic heart failure (HCC) SOB (shortness of breath) Primary hypertension HEMOGLOBIN A1C Routine 09/06/2024 9:52 AM FOSTER WINDER Chronic diastolic heart failure (HCC) SOB (shortness of breath) Primary hypertension COMPREHENSIVE METABOLIC PANEL Routine 09/06/2024 9:52 AM FOSTER WINDER Chronic diastolic heart failure (HCC) SOB (shortness of breath) Primary hypertension LIPID PANEL Routine 09/06/2024 9:52 AM FOSTER WINDER Chronic diastolic heart failure (HCC) SOB (shortness of breath) Primary hypertension CARDIOLOGY DOCUMENT SCAN Routine 08/15/2024 4:06 PM FOSTER WINDER CARDIOLOGY DOCUMENT SCAN Routine 08/14/2024 4:05 PM FOSTER WINDER CARDIOLOGY DOCUMENT SCAN Routine 08/11/2024 4:03 PM FOSTER WINDER from Last 3 Months Results * (ABNORMAL) CBC with Diff, BJ (09/06/2024 9:52 AM FOSTER WINDER) White Blood Count 4.10 3.80 - 9.90 K/cumm [facility] Comment: Red Blood Count 6.41(H) 3.90 - 5.20 M/cumm [facility] Hemoglobin 14.9 11.9 - 15.5 g/dL [facility] Hematocrit 51.2(H) 35.6 - 45.5 % [facility] Platelet Count 146(L) 150 - 400 K/cumm [facility] MCV 79.9(L) 81.3 - 96.4 fl [facility] MCH 23.2(L) 27.1 - 33.3 pg [facility] MCHC 29.1(L) 32.3 - 35.7 g/dL [facility] MPV Not Measured 9.1 - 12.3 fl [facility] RDW SD 55.6(H) 35.7 - 48.1 fL [facility] RDW CV 19.9(H) 11.1 - 14.9 % [facility] Neut Abs 2.6 1.5 - 6.5 K/cumm [facility] Imm Gran Abs 0.00 0.00 - 0.10 K/cumm [facility] Lymph Abs 1.00 0.80 - 3.30 K/cumm [facility] [place] Abs 0.30 0.20 - 0.80 K/cumm [facility] Eos Abs 0.10 0.00 - 0.50 K/cumm [facility] Baso Abs 0.00 0.00 - 0.10 K/cumm [facility] Neut Pct 64.1 % [facility] Imm Gran Pct 0.2 % [facility] Lymph Pct 24.6 % [facility] [place] Pct 8.0 % [facility] Eos Pct 2.4 % [facility] Baso Pct 0.7 % [facility] NRBC Abs 0.00 0.00 - 0.01 K/cumm [facility] 09/06/2024 9:52 AM FOSTER WINDER 09/06/2024 11:49 AM FOSTER WINDER L[facility] - 09/07/2024 8:35 AM FOSTER WINDER Testing performed at [facility] - [address] [place] [address]. Jayesh Betancur MD LAB BLOOD ORDERABLES Final R esult [facility] * Pro B-type natriuretic peptide (09/06/2024 9:52 AM FOSTER WINDER) NT-proBNP <50 <=300 pg/mL Comment: Interpretive Comments: [...] et.al. Eur Heart J. 2006:27:330-337. 2. Sandra GARCIA, Dillon AM. J. AM Kerline Cardiol: Cardiovasc Imag. 2009;2: 216- 225. Interpretive Data Last Revised Date: 2018. Blood 09/06/2024 9:52 AM FOSTER WINDER 09/06/2024 11:28 AM FOSTER WINDER Jayesh eBtancur MD LAB BLOOD ORDERABLES Final R esult MAREN HERNANDEZ [facility] Department [place] [address] * Iron profile w/ IBC (09/06/2024 9:52 AM FOSTER WINDER) Iron 96 30 - 160 ug/dL [facility] TIBC 292 220 - 420 ug/dL [facility] Iron saturation 32.9 11.0 - 52.0 % [facility] Blood 09/06/2024 9:52 AM FOSTER WINDER 09/06/2024 11:49 AM FOSTER WINDER Jayesh Betancur MD LAB BLOOD ORDERABLES Final R esult [facility] * Apolipoprotein B, serum (09/06/2024 9:52 AM FOSTER WINDER) Apolipoprotein B 90 mg/dL [facility] Comment: REFERENCE VALUE Desirable: <90 Above Desirable: 90-99 Borderline high: 100-119 High: 120-139 Very high: > or = 140 Test Performed by: [address] [address] Bariatric Surgeon: Yusuf Lorenzo Ph.D.; CLIA# [id number] Blood 09/06/2024 9:52 AM FOSTER WINDER 09/06/2024 1:01 PM FOSTER WINDER Jayesh Betanucr MD LAB BLOOD ORDERABLES Final R esult MAR[facility] Department [place] [address] [facility] * Lipoprotein a (LPa) (09/06/2024 9:52 AM FOSTER WINDER) Lipoprotein (A) 37.9 <=75.0 nmol/L [facility] Comment: An LP(a) level >100 nmol/L is [...] FDA, although they are provided by the medical superintendent and widely accepted as the preferred units for reporting. ??[facility] is regulated under CLIA as qualified to perform high-complexity testing. Blood 09/06/2024 9:52 AM FOSTER WINDER 09/06/2024 11:49 AM FOSTER WINDER Jayesh Betancur MD LAB BLOOD ORDERABLES Final R esult Performing Organization Address City/[facility] Co de Phone Number [facility] * (ABNORMAL) Hemoglobin A1c (09/06/2024 9:52 AM FOSTER WINDER) HbA1c 6.1(H) 5.1 - 5.6 % [facility] Comment: HBA1C 5.1 - 5.6 = NORMAL HBA1C 5.7 - 6.4 = PREDIABETES HBA1C >=6.5 = PROVISIONAL DIAGNOSIS OF DIABETES Estimated Average Glucose 128 mg/dL [facility] Blood 09/06/2024 9:52 AM FOSTER WINDER 09/06/2024 11:49 AM FOSTER WINDER Jayesh Betancur MD LAB BLOOD ORDERABLES Final R esult Performing Organization Address [facility] Co de Phone Number [facility] * (ABNORMAL) Lipid panel (09/06/2024 9:52 AM FOSTER WINDER) Triglycerides 161(H) <150 mg/dL [facility] Comment: Desirable: <150 mg/dL, fasting <175 mg/dL, non-fasting Persistently elevated triglycerides may enhance atherosclerotic cardiovascular disease. Total Cholesterol 172 <200 mg/dL [facility] Total HDL-C Direct 36(L) >50 mg/dL [facility] Comment: A low HDL-C may be inidcative of metabolic syndrome and enhance atherosclerotic cardiovascular disease risk. Non-HDL cholesterol 136 <220 mg/dL [facility] Friedewald LDL Chol 104 <190 mg/dL [facility] Comment: The Friedewald equation is accurate in most patients when triglycerides are less than 150 mg/dL. ??Consider the use of non-HDL-C or Apo B to help estimate atherosclerotic cardiovascular diesase risk if triglycerides are elevated. Blood 09/06/2024 9:52 AM FOSTER WINDER 09/06/2024 11:49 AM FOSTER WINDER Narrative [facility] - 09/06/2024 1:32 PM FOSTER WINDER Current interpretive data was last updated August 01, 2021. For adults ages 40-79, the ACC/AHA recommends discussing your 10-year atherosclerotic cardiovascular disease risk with your health care provider. ??https://www.acc.org/ASCVDApp Jayesh Betancur MD LAB BLOOD ORDERABLES Final R esult Performing Organization Address [facility]/ZIP Co de Phone Number [facility] * (ABNORMAL) Comprehensive metabolic panel (09/06/2024 9:52 AM FOSTER WINDER) Total Protein 9.0(H) 6.1 - 8.4 g/dL [...] [facility] Blood 09/06/2024 9:52 AM FOSTER WINDER 09/06/2024 11:49 AM FOSTER WINDER Result [facility] Jayesh Betancur MD LAB BLOOD ORDERABLES Final R esult [facility] * Cardiology Document Scan (08/15/2024 4:06 PM FOSTER WINDER) Anatomical Region Laterality Modality Other Nadira Leyva NP CV CARDIAC SERVICES PROCEDUR ES Final Result * Cardiology Document Scan (08/14/2024 4:05 PM FOSTER WINDER) Anatomical Region Laterality Modality Other Nadira Leyva NP CV CARDIAC SERVICES PROCEDUR ES Final Result * Cardiology Document Scan (08/11/2024 4:03 PM FOSTER WINDER) Anatomical Region Laterality Modality Other Nadira Melinda Autumn FAMILY LAW LEGAL ASSISTANT CV CARDIAC SERVICES PROCEDUR ES Final Result from Last 3 Months [employer] [facility] Care Teams Sales Enablement Lead Relationship Specialty Start Date End Date Mary Vazquez MD PCP - General Family Practice 03/05/20
--- OUTSIDE RECORDS SUMMARY | 2024-09-25 06:43 | XMS_ITS | CONTINUITY OF CARE DOCUMENT ---
Author Name bala mckenna Address Unknown Organization [facility] Address [address] [place] [address] [address] [place] [address] Phone [phone] Care Team Providers Care Mamma Logist Name Role Phone Darya CONTEH, Adonay Unavailable [phone] Adonay Lackey MD Unavailable [phone] George CONTEH, Mary Unavailable INSURANCE PROVIDERS Payer name Policy type / Coverage type [place] [employer] party ID [employer] FAMILY [employer] Medicaid 4 [id number]
[2024-09-25 07:32] LABS: Basophils Percent Auto 0.8 % (0.2-1.2); Eosinophils Absolute Auto 0.1 K/mm3 (0-0.3); Eosinophils Percent Auto 5.4 % (0-4.4); Hematocrit 42.4 % (37.0-47.0); Hemoglobin 12.7 g/dL (12.0-15.0); Immature Granulocyte Absolute 0.01 K/mm3 (0.00-0.031); Immature Granulocyte Percent A 0.4 % (0-0.5); Immature Platelet Fraction Pct 6.5 % (0.9-11.2); Lymphocytes Absolute Auto 0.67 K/mm3 (0.9-3.2); Lymphocytes Percent Auto 27.7 % (18.3-44.2); Mean Corpuscular Hemoglobin 24.5 pg (26-34); Mean Corpuscular Volume 81.9 fl (80-100); Monocytes Absolute Auto 0.3 K/mm3 (0.1-0.6); Monocytes Percent Auto 13.6 % (2.6-8.5); Neutrophils Absolute Auto 1.3 K/mm3 (1.3-6.7); Neutrophils Percent Auto 52.1 % (45.5-73.1); Platelet Count Result 123 k/mm3 (150-375); Red Blood Count 5.18 M/mm3 (4.2-5.4); Red Cell Distribution Width 19.9 % (11.5-14.5); White Blood Count 2.4 K/mm3 (4.5-10.0)
[2024-09-25 07:41] LABS: Alanine Aminotransferase 27 U/L (6-35); Albumin Level 3.8 g/dL (3.5-5.1); Alkaline Phosphatase 100 U/L (38-126); Anion Gap 5 mmol/L (4-12); Aspartate Amino Transferase 29 U/L (14-36); Bilirubin,Total 0.7 mg/dL (0.2-1.3); Blood Urea Nitrogen 32 mg/dL (7-17); Calcium 8.8 mg/dL (8.4-10.2); Carbon Dioxide 33 mmol/L (22-30); Chloride 102 mmol/L (98-107); Cholesterol 96 mg/dL (0-200); Estimated Glomerular Filt Rate > 60; Glucose 91 mg/dL (65-110); HDL Direct 37 mg/dL; Magnesium 2.3 mg/dL (1.6-2.3); Potassium 4.7 mmol/L (3.4-5.0); Sodium 140 mmol/L (137-145); Triglycerides 64 mg/dL (<150)
[2024-09-25 07:52] LABS: LDL Cholesterol Direct 40 mg/dL
[2024-09-25 08:16] LABS: Anisocytosis 1+; Hypochromasia 1+; Platelet Estimate Adequate (Adequate); Schistocytes None Seen
[2024-09-25 09:04] LABS: Hemoglobin A1C 6.1 % (<5.7)
[2024-09-25 09:56] LABS: Vitamin D 25 Hydroxy 46.9 ng/mL
== END 2024-09-25 06:41 | disposition home or self-care (01) ==
LOC: ANHLAB 06:41
PROVIDERS: PCP Family Medicine; Visit Provider Family Medicine
DX: Z00.00 Encounter for general adult medical examination without abnormal findings (principal); E78.5 Hyperlipidemia, unspecified; I11.0 Hypertensive heart disease with heart failure; I50.33 Acute on chronic diastolic (congestive) heart failure; R73.9 Hyperglycemia, unspecified; E53.8 Deficiency of other specified B group vitamins; E55.9 Vitamin D deficiency, unspecified
CPT/HCPCS: 36415; 80053; 80061; 82306; 82607; 83036; 83735; 84443; 85025; 85055

== ENCOUNTER 2024-10-26 16:51 | Outpatient (CLI) | payer OTHER, SELFPAY ==
[2024-10-26 17:31] LABS: Basophils Percent Auto 0.4 % (0.2-1.2); Eosinophils Absolute Auto 0.1 K/mm3 (0-0.3); Eosinophils Percent Auto 0.8 % (0-4.4); Hematocrit 35.6 % (37.0-47.0); Immature Granulocyte Absolute 0.04 K/mm3 (0.00-0.031); Immature Granulocyte Percent A 0.5 % (0-0.5); Immature Platelet Fraction Pct 6.9 % (0.9-11.2); Lymphocytes Absolute Auto 0.46 K/mm3 (0.9-3.2); Lymphocytes Percent Auto 5.8 % (18.3-44.2); Mean Corpuscular HGB Conc 30.9 g/dl (32-36); Mean Corpuscular Hemoglobin 25.5 pg (26-34); Mean Corpuscular Volume 82.4 fl (80-100); Mean Platelet Volume 10.4 fl (7.4-10.4); Monocytes Absolute Auto 0.7 K/mm3 (0.1-0.6); Monocytes Percent Auto 8.6 % (2.6-8.5); Neutrophils Absolute Auto 6.6 K/mm3 (1.3-6.7); Neutrophils Percent Auto 83.9 % (45.5-73.1); Platelet Count Result 196 k/mm3 (150-375); Red Blood Count 4.32 M/mm3 (4.2-5.4); Red Cell Distribution Width 21.4 % (11.5-14.5); White Blood Count 7.9 K/mm3 (4.5-10.0)
[2024-10-26 17:49] LABS: Alanine Aminotransferase 56 U/L (6-35); Albumin Level 3.5 g/dL (3.5-5.1); Alkaline Phosphatase 268 U/L (38-126); Anion Gap 12 mmol/L (4-12); Aspartate Amino Transferase 46 U/L (14-36); Bilirubin,Total 1.2 mg/dL (0.2-1.3); Blood Urea Nitrogen 50 mg/dL (7-17); Carbon Dioxide 22 mmol/L (22-30); Chloride 102 mmol/L (98-107); Estimated Glomerular Filt Rate 27; Glucose 79 mg/dL (65-110); Potassium 5.5 mmol/L (3.4-5.0); Sodium 136 mmol/L (137-145)
[2024-10-26 17:54] LABS: NT Pro B Type Natriuretic Pept 2360 pg/mL (19.9-100)
[2024-10-26 17:55] LABS: Iron 22 ug/dL (37-170)
[2024-10-26 18:04] LABS: Percent Iron Saturation 11 % (20-50)
== END 2024-10-26 16:52 | disposition home or self-care (01) ==
PROVIDERS: PCP Family Medicine
DX: R06.02 Shortness of breath (principal); D50.9 Iron deficiency anemia, unspecified
CPT/HCPCS: 36415; 80053; 83540; 83550; 83880; 85025; 85055

== ENCOUNTER 2024-10-31 15:52 | Outpatient (CLI) | payer OTHER, SELFPAY | END 2024-10-31 15:53 | disposition home or self-care (01) | PROVIDERS: PCP Family Medicine; Visit Provider Family Medicine | DX: R91.8 Other nonspecific abnormal finding of lung field (principal); I50.33 Acute on chronic diastolic (congestive) heart failure; J90 Pleural effusion, not elsewhere classified | CPT/HCPCS: 71046 ==

== ENCOUNTER 2024-11-01 15:57 | Inpatient (IN) | payer OTHER, SELFPAY ==
[2024-11-01] VITALS (15 sets, daily range): BP systolic 93–158; BP diastolic 54–91; PULSE 85–128; RESP 16–28; TEMP 36.4–36.7; O2SAT 82–99; BMI 46.9
--- NOTE | ~2024-11-01 | CT_ITS ---
EXAMINATION: CT diagnostic chest wo con DATE: 11/05/2024 17:58 INDICATION: hypoxia TECHNIQUE: Computed tomography (CT) of the chest was performed with 100 mL Omnipaque-350 intravenous contrast. Automated exposure control and iterative reconstruction technique were employed. The dose-l ength product was 382.80 mGy-cm. COMPARISON: X-ray chest 11/04/2024; CTPA 03/24/2024. FINDINGS: CHEST: Thoracic aorta: No significant dilation or calcification. Lung parenchyma and airways: Bronchovascular consolidation in the left lower lobe. Dependent atelecta sis in the right lower lobe. Lungs otherwise clear. Patent airways. Thoracic inlet, axillae and chest wall: Multinodular goiter with calcification. Surgical clips in the left axilla. No axillary lymphadenopathy. Mediastinum: No mass or lymphadenopathy. Subcentimeter prevascular and periaortic nodes. Enlarged pul monary arteries can be seen with pulmonary arterial hypertension. Heart and pericardium: Mild cardiomegaly. No pericardial effusion. Coronary artery calcifications: Moderate. Pleura: Pleural calcification and thickening in the right lung, likely chronic. Trace left pleural fl uid. Upper abdomen: No significant finding. Thoracic bones: No acute osseous finding in the chest. IMPRESSION: Left lower lobe bronchopneumonia. Aspiration could also be considered in the differential. Trace left pleural effusion. Reviewed, dictated and finalized at location K. IMPRESSION: Left lower lobe bronchopneumonia. Aspiration could also be considered in the di fferential. Trace left pleural effusion.
--- NOTE | ~2024-11-01 | XR_ITS ---
EXAMINATION: XR chest 2V DATE: 11/01/2024 16:39 INDICATION: Dyspnea. TECHNIQUE: Frontal and lateral views of the chest were obtained. COMPARISON: Chest 2 views 10/31/2024, chest CT 03/24/2024 FINDINGS: There are airspace opacities in right lower lung zone and left mid and lower lung zones. Th ere is a small right pleural effusion. No pneumothorax. Cardiomegaly is noted. There are surgical cli ps in left axilla. There is mild chronic anterior wedging of multiple mid thoracic vertebral bodies. IMPRESSION: 1. Airspace opacities in right lower lung zone and left mid and lower lung zones, consistent with ate lectasis versus pneumonia. 2. Small right pleural effusion. 3. Cardiomegaly. Reviewed, dictated and finalized at location A. ITUTIONAL AIDE IMPRESSION: 1. Airspace opacities in right lower lung zone and left mid and lower lung zone s, consistent with atelectasis versus pneumonia. 2. Small right pleural effusion. 3. Cardiomegaly.
--- NOTE | ~2024-11-01 | US_ITS ---
EXAMINATION: US renal BI DATE: 11/05/2024 15:07 INDICATION: Renal failure TECHNIQUE: Multiple grayscale and Doppler ultrasound images of the kidneys were obtained. COMPARISON: 08/08/2024 and 02/03/2018 FINDINGS: Exam limited by body habitus. The right kidney measures 10.7 x 5.3 x 4.7 cm. The left kidney measures 10.3 x 5.6 x 4.8 cm. The kidneys demonstrate normal parenchymal echogenicity. There is no hydronephr osis. The bladder is mostly empty, no jets visualized during the imaging acquisition. IMPRESSION: Unremarkable renal sonogram findings. Reviewed, dictated and finalized at location K.
--- NOTE | ~2024-11-01 | XR_ITS ---
EXAMINATION: XR chest 2V DATE: 11/04/2024 13:36 INDICATION: Shortness of breath. Hypoxia. TECHNIQUE: Frontal and lateral views of the chest were obtained. COMPARISON: Chest 2 views 11/01/2024 FINDINGS: There are airspace opacities in the mid and lower lung zones, left worse than right. There is chronic right-sided pleural thickening. No pleural effusion or pneumothorax. The heart size is nor mal. There are surgical clips in left chest wall. IMPRESSION: 1. Stable airspace opacities in the mid and lower lung zones, left worse than right, consistent with atelectasis versus pneumonia. Reviewed, dictated and finalized at location A. FIREMAN IMPRESSION: 1. Stable airspace opacities in the mid and lower lung zones, left worse than r ight, consistent with atelectasis versus pneumonia.
--- NOTE | 2024-11-01 16:09 | ECG_ITS ---
Test Date: 2024-11-01 17:00:17 Measurements Intervals [place] Rate: 88 P: 54 NC: 163 QRS: 35 QRSD: 89 T: 51 QT: 342 QTc: 414 Interpretive Statements SINUS RHYTHM Compared to ECG 08/07/2024 14:46:54 No significant changes Electronically Signed On 11-02-2024 13:55:10 PHOTOVOLTAIC TECHNICIAN by Dani Chu M.D.
[2024-11-01 16:41] LABS: Basophils Percent Auto 0.7 % (0.2-1.2); Eosinophils Absolute Auto 0.2 K/mm3 (0-0.3); Eosinophils Percent Auto 2.9 % (0-4.4); Hematocrit 34.8 % (37.0-47.0); Hemoglobin 10.5 g/dL (12.0-15.0); Immature Granulocyte Absolute 0.18 K/mm3 (0.00-0.031); Immature Granulocyte Percent A 3.2 % (0-0.5); Lymphocytes Absolute Auto 0.69 K/mm3 (0.9-3.2); Lymphocytes Percent Auto 12.5 % (18.3-44.2); Mean Corpuscular HGB Conc 30.2 g/dl (32-36); Mean Corpuscular Hemoglobin 25.7 pg (26-34); Mean Corpuscular Volume 85.3 fl (80-100); Mean Platelet Volume 11.1 fl (7.4-10.4); Monocytes Absolute Auto 0.6 K/mm3 (0.1-0.6); Monocytes Percent Auto 11.2 % (2.6-8.5); Neutrophils Absolute Auto 3.9 K/mm3 (1.3-6.7); Neutrophils Percent Auto 69.5 % (45.5-73.1); Platelet Count Result 296 k/mm3 (150-375); Red Blood Count 4.08 M/mm3 (4.2-5.4); Red Cell Distribution Width 21.8 % (11.5-14.5); White Blood Count 5.5 K/mm3 (4.5-10.0)
[2024-11-01 16:56] LABS: Alanine Aminotransferase 50 U/L (6-35); Albumin Level 3.3 g/dL (3.5-5.1); Alkaline Phosphatase 379 U/L (38-126); Anion Gap 8 mmol/L (4-12); Aspartate Amino Transferase 33 U/L (14-36); Bilirubin,Total 0.8 mg/dL (0.2-1.3); Blood Urea Nitrogen 38 mg/dL (7-17); Calcium 8.8 mg/dL (8.4-10.2); Carbon Dioxide 25 mmol/L (22-30); Chloride 106 mmol/L (98-107); Estimated CRCL calculation 60 ml/min; Estimated Glomerular Filt Rate 49; Glucose 96 mg/dL (65-110); Potassium 5.7 mmol/L (3.4-5.0); Sodium 139 mmol/L (137-145)
[2024-11-01 16:58] LABS: INR 1.1; Prothrombin Time 14.3 Seconds (11.1-14.7)
[2024-11-01 16:59] LABS: Partial Thromboplastin Time 33.7 Seconds (22.3-36.8)
[2024-11-01 17:09] LABS: Troponin I < 0.012 ng/mL (0.000-0.034)
--- OUTSIDE RECORDS SUMMARY | 2024-11-01 17:27 | XMS_ITS | Clinical Summary ---
Author Organization [facility] Address [address] [place] [address] Care Team Providers Care Sheetrock Applicator Name Role Phone Artemio Gaviria MD Primary Care Provider [phone] [facility],non-owned Affiliates and Associated Physician Practices is amultiple site organization consisting of ambulatory clinics and hospital sitesin [place], [place], [place] and [place]. This disclosure is being madepursuant to the Care Everywhere program and may not contain all information available regarding this patient. Last updated 18.[facility] [employer] Social History Tobacco Use Types Packs/Day Years [...] age to complete this topic Care Teams Sheetrock Applicator Relationship Specialty Start Date End Date Artemio Gaviria MD [address] [place] [address] PCP - General 06/26/19
--- OUTSIDE RECORDS SUMMARY | 2024-11-01 17:27 | XMS_ITS | Clinical Summary ---
Author Organization [facility] Address [address] [place] [address] Care Team Providers Care Welder Experimental Name Role Phone Mary Vazquez MD Primary Care Provider Allergies Active Allergy Reactions Criticality Noted Date Comments Amoxicillin Rash Medium 02/08/2018 Sulfa (Sulfonamide Antibiotics) Hives,Rash,Redness Medium Medications cyanocobalamin (Vitamin B-12) 1,000 mcg tabletIndicatio ns:Prevention of Vitamin B12 Deficiency Take 1 tablet (1,000 mcg total) by mouth daily Active ferrous sulfate ER 324 mg (65 mg iron) EC tabletIndicatio ns:Iron Deficiency Anemia Take 65 mg by mouth Active aspirin 81 mg chewable tablet Take 1 tablet (81 mg total) by mouth daily Active hydroxychloroqu ine (PLAQUENIL) 200 mg tablet TAKE 1 TABLET (200 MG TOTAL) BY MOUTH 2 TIMES A DAY. 180 tablet 1 01/04/2024 Active furosemide (LASIX) 40 mg tablet Take 1 tablet (40 mg total) by mouth daily 05/02/2024 Active spironolactone (ALDACTONE) 25 mg tablet Take 0.5 tablets (12.5 mg total) by mouth daily 05/02/2024 Active empagliflozin (JARDIANCE) 10 mg tablet Take 1 tablet (10 mg total) by mouth daily 90 tablet 3 06/05/2024 Active valsartan (DIOVAN) 80 mg tablet Take 1 tablet (80 mg total) by mouth daily 30 tablet 11 09/06/2024 Active rosuvastatin (CRESTOR) 10 mg tablet Take 1 tablet (10 mg total) by mouth daily 90 tablet 3 09/06/2024 6 Active Active Problems Problem Noted Date Diagnosed [...] (Opdivo) from 07/18-04/18 Morbid obesity 12/14/2017 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 Was on AZA-stopped due to being stable. Has history of pleural effusion, was following with [facility], but needs to establish with a new one. Sister has SLE with LN s/p Cytoxan (Mindy Jos) Encounters Date Type Department Care Team Description 10/31/2024 Telephone [facility] Cardiology Formerly [facility], [facility] 8th [place] [address] [place] [address] Jayesh Betancur MD 10/31/2024 Orders Only [facility] Scanning, Provider 10/27/2024 Orders Only [facility] Scanning, Provider 10/25/2024 Telephone [facility] Cardiology [address] [facility] Medicine 8th [address] [place] [address] Jayesh Betancur MD 10/24/2024 Telephone [facility] Cardiology [address] [facility] 8th [address] [place] [address] Jayesh Betancur MD 09/06/2024 9:52 AM PACKAGING DESIGN ENGINEER - 09/06/2024 11:59 PM PACKAGING DESIGN ENGINEER Hospital Encounter [facility] [address] [place] [address] Chronic diastolic heart failure (HCC); SOB (shortness of breath); Primary hypertension Discharge Disposition: Discharge to home or self care 09/06/2024 9:45 AM PACKAGING DESIGN ENGINEER Lab [facility] Endocrinology Metabolism and Lipid [address] [facility] 8th [place] [address] [place] [address] Chronic diastolic heart failure (HCC); SOB (shortness of breath); Primary hypertension 09/06/2024 9:00 AM PACKAGING DESIGN ENGINEER Office Visit [facility] Cardiology [address] [facility] 8th [address] [place] [address] Jayesh Betancur MD Chronic diastolic heart failure (HCC) (Primary Dx); SOB (shortness of breath); Primary hypertension 08/21/[address] 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 [place] Level IV + one node N O [...] on file Legal Sex Female 6:34 AM PACKAGING DESIGN ENGINEER Gender Identity Female 01/18/2022 11:01 PM CDT Sexual Orientation Straight 01/18/2022 11 :01 PM CDT Obstetrics History Last Filed Vital Signs Vital Sign Reading Time Taken Comments Blood Pressure 98/68 09/06/2024 8:42 AM PACKAGING DESIGN ENGINEER Pulse 73 09/06/2024 8:42 AM PACKAGING DESIGN ENGINEER Temperature 36.5 C (97.7 F) 07/20/2023 7:58 AM PACKAGING DESIGN ENGINEER Respiratory Rate 14 01/26/2023 8:26 AM CDT Oxygen Saturation 96% 09/06/2024 8:42 AM PACKAGING DESIGN ENGINEER Inhaled Oxygen Concentration - - Weight 114.1 kg (251 lb 9.6 oz) 09/06/2024 8:42 AM PACKAGING DESIGN ENGINEER Height 162.6 cm (5' 4 ) 09/06/2024 8:42 AM PACKAGING DESIGN ENGINEER Body Mass Index 43.19 09/06/2024 8:42 AM PACKAGING DESIGN ENGINEER Plan of Treatment Health Maintenance Due Date Last Done Comments Breast Cancer Screening-Mammogram 1974 Cervical Cancer Screening 1974 Colon Cancer Screening-Colonoscopy 1974 Hepatitis C Screening 1974 DTaP/Tdap/Td Vaccine (1 - Tdap) 1985 Hepatitis B Screening 1992 Regular Well Visit/Exam 18-64 1992 Pneumococcal vaccine <65 (1 of 2 - PCV) 1993 Zoster Vaccine (1 of 2) 1993 Depression Screening 09/12/2022 09/12/2021, 02/08/2018, 02/08/2018 Covid-19 Vaccine (4 - 2023-2 5 season) 2024 07/18/2021, 12/05/2020, 11/07/2020 Influenza Vaccine Completed 06/22/2024, , 2022, Additional history exists Procedures Procedure Name Priority Date/Time Associated Diagnosis Comments SCAN - LABS 10/31/2024 SCAN - LABS 10/27/2024 CBC WITH DIFF, BJ Routine 09/06/2024 9:5 2 AM PACKAGING DESIGN ENGINEER Chronic diastolic heart failure (HCC) SOB (shortness of breath) Primary hypertension APOLIPOPROTEIN B Routine 09/06/2024 9:52 AM PACKAGING DESIGN ENGINEER Chronic diastolic heart failure (HCC) SOB (shortness of breath) Primary hypertension PRO B-TYPE NATRIURETIC PEPTIDE Routine 09/06/2024 9:52 AM PACKAGING DESIGN ENGINEER Chronic diastolic heart failure (HCC) SOB (shortness of breath) Primary hypertension LIPOPROTEIN A (LPA) Routine 09/06/2024 9 :52 AM PACKAGING DESIGN ENGINEER Chronic diastolic heart failure (HCC) SOB (shortness of breath) Primary hypertension IRON PROFILE W/ IBC Routine 09/06/2024 9 :52 AM PACKAGING DESIGN ENGINEER Chronic diastolic heart failure (HCC) SOB (shortness of breath) Primary hypertension HEMOGLOBIN A1C Routine 09/06/2024 9:52 AM PACKAGING DESIGN ENGINEER Chronic diastolic heart failure (HCC) SOB (shortness of breath) Primary hypertension COMPREHENSIVE METABOLIC PANEL Routine 09/06/2024 9:52 AM PACKAGING DESIGN ENGINEER Chronic diastolic heart failure (HCC) SOB (shortness of breath) Primary hypertension LIPID PANEL Routine 09/06/2024 9:52 AM PACKAGING DESIGN ENGINEER Chronic diastolic heart failure (HCC) SOB (shortness of breath) Primary hypertension CARDIOLOGY DOCUMENT SCAN Routine 08/15/2024 4:06 PM PACKAGING DESIGN ENGINEER CARDIOLOGY DOCUMENT SCAN Routine 08/14/2024 4:05 PM PACKAGING DESIGN ENGINEER CARDIOLOGY DOCUMENT SCAN Routine 08/11/2024 4:03 PM PACKAGING DESIGN ENGINEER from Last 3 Months Results * SCAN - LABS (10/31/2024) us Provider Scanning Final Result * SCAN - LABS (10/27/2024) us Provider Scanning Final Result * (ABNORMAL) CBC with Diff, BJ (09/06/2024 9:52 AM PACKAGING DESIGN ENGINEER) White Blood Count 4.10 3.80 - 9.90 K/cumm [facility] Comment: Red Blood Count 6.41(H) 3.90 - 5.20 M/cumm [facility] Hemoglobin 14.9 11.9 - 15.5 g/dL [facility] Hematocrit 51.2(H) 35.6 - 45.5 % [facility] Platelet Count 146(L) 150 - 400 K/cumm [facility] MCV 79.9(L) 81.3 - 96.4 fl [facility] MCH 23.2(L) 27.1 - 33.3 pg [facility] MCHC 29.1(L) 32.3 - 35.7 g/dL [facility] MPV Not Measured 9.1 - 12.3 fl [facility] RDW SD 55.6(H) 35.7 - 48.1 fL [facility] RDW CV 19.9(H) 11.1 - 14.9 % [facility] Neut Abs 2.6 1.5 - 6.5 K/cumm [facility] Imm Gran Abs 0.00 0.00 - 0.10 K/cumm [facility] Lymph Abs 1.00 0.80 - 3.30 K/cumm [facility] [place] Abs 0.30 0.20 - 0.80 K/cumm [facility] Eos Abs 0.10 0.00 - 0.50 K/cumm [facility] Baso Abs 0.00 0.00 - 0.10 K/cumm [facility] Neut Pct 64.1 % [facility] Imm Gran Pct 0.2 % [facility] Lymph Pct 24.6 % [facility] [place] Pct 8.0 % [facility] Eos Pct 2.4 % [facility] Baso Pct 0.7 % [facility] NRBC Abs 0.00 0.00 - 0.01 K/cumm [facility] 09/06/2024 9:52 AM PACKAGING DESIGN ENGINEER 09/06/2024 11:49 AM PACKAGING DESIGN ENGINEER Narrative [facility] - 09/07/2024 8:35 AM PACKAGING DESIGN ENGINEER Testing performed at [facility] - [address] [place] [id number]. [place] Jayesh Betancur MD LAB BLOOD ORDERABLES Final R esult [facility] * Pro B-type natriuretic peptide (09/06/2024 9:52 AM PACKAGING DESIGN ENGINEER) NT-proBNP <50 <=300 pg/mL Comment: Interpretive Comments: A. Dyspnea in Acute Care Setting All Ages: < 300 pg/ml, acute heart failure unlikely. < 50 yrs: 300 - 450 pg/ml, further investigation warranted. > 450 pg/ml, acute heart failure likely. 50 - 74 yrs: 300 - 900 pg/ml, further investigation warranted. > 900 pg/ml, acute heart failure likely . > or = 75 yrs: 450 - 1800 pg/ml, further investigation warranted. > 1800 pg/ml, acute heart failure likely. B. Non-acute Setting < 75 yrs < 125 pg/ml, rules out heart failure. > or = 125 pg/ml, further investigation warranted. > or = 75 yrs < 450 pg/ml, rules out heart failure. > or = 450 pg/ml, further investigation [...] LAMAR et.al. Eur Heart J. 2006:27:330-337. 2. Dillon Feliciano AM. J. AM Kerline Cardiol: Cardiovasc Imag. 2009;2: 216- 225. Interpretive Data Last Revised Date: 2018. Blood 09/06/2024 9:52 AM PACKAGING DESIGN ENGINEER 09/06/2024 11:28 AM PACKAGING DESIGN ENGINEER Jayesh Betancur MD LAB BLOOD ORDERABLES Final R esult Performing Organization Address City/[facility] Co de Phone Number MAREN HERNANDEZ [facility] Department [place] [address] * Iron profile w/ IBC (09/06/2024 9:52 AM PACKAGING DESIGN ENGINEER) Iron 96 30 - 160 ug/dL [facility] TIBC 292 220 - 420 ug/dL [facility] Iron saturation 32.9 11.0 - 52.0 % [facility] Blood 09/06/2024 9:52 AM PACKAGING DESIGN ENGINEER 09/06/2024 11:49 AM PACKAGING DESIGN ENGINEER Jayesh Betancur MD LAB BLOOD ORDERABLES Final R esult [facility] * Apolipoprotein B, serum (09/06/2024 9:52 AM PACKAGING DESIGN ENGINEER) Apolipoprotein B 90 mg/dL [facility] Comment: REFERENCE VALUE Desirable: <90 Above Desirable: 90-99 Borderline high: 100-119 High: 120-139 Very high: > or = 140 Test Performed by: [place] [id number] It Sales Executive: Yusuf Lorenzo Ph.D.; CLIA# [id number] Blood 09/06/2024 9:52 AM PACKAGING DESIGN ENGINEER 09/06/2024 1:01 PM PACKAGING DESIGN ENGINEER Jayesh Betancur MD LAB BLOOD ORDERABLES Final R esult Performing Organization Address City/[facility]/ZIP Co de Phone Number MAREN HERNANDEZ [facility] Department [place] [address] [place] ref [facility] * Lipoprotein a (LPa) (09/06/2024 9:52 AM PACKAGING DESIGN ENGINEER) Lipoprotein (A) 37.9 <=75.0 nmol/L [facility] Comment: An LP(a) level >100 nmol/L is considered an atherosclerotic cardiovascular disease (ASCVD) risk-enhancing factor by the National Lipid Association and corresponds to the 80th population percentile in Caucasians. The corresponding 80th population percentile in -Americans is 150 nmol/L, but it is currently unclear whether a different risk threshold should be applied (J Clin Lipidololgy 2019; 13:374-392). This test was developed using a commercially available kit and its performance characteristics have been determined by [facility]. This assay in units of nmol/L has not been cleared or approved by the FDA, although they are provided by the patient consumer marketer and widely accepted as the preferred units for reporting. [facility] is regulated under CLIA as qualified to perform high-complexity testing. Blood 09/06/2024 9:52 AM PACKAGING DESIGN ENGINEER 09/06/2024 11:49 AM PACKAGING DESIGN ENGINEER Jayesh Betancur MD LAB BLOOD ORDERABLES Final R esult [facility] * (ABNORMAL) Hemoglobin A1c (09/06/2024 9:52 AM PACKAGING DESIGN ENGINEER) HbA1c 6.1(H) 5.1 - 5.6 % [facility] Comment: HBA1C 5.1 - 5.6 = NORMAL HBA1C 5.7 - 6.4 = PREDIABETES HBA1C >=6.5 = PROVISIONAL DIAGNOSIS OF DIABETES Estimated Average Glucose 128 mg/dL [facility] Blood 09/06/2024 9:52 AM PACKAGING DESIGN ENGINEER 09/06/2024 11:49 AM PACKAGING DESIGN ENGINEER Jayesh Betancur MD LAB BLOOD ORDERABLES Final R esult Performing Organization Address [facility] Co de Phone Number [facility] * (ABNORMAL) Lipid panel (09/06/2024 9:52 AM PACKAGING DESIGN ENGINEER) Triglycerides 161(H) <150 mg/dL [facility] [...] when triglycerides are less than 150 mg/dL. Consider the use of non-HDL-C or Apo B to help estimate atherosclerotic cardiovascular diesase risk if triglycerides are elevated. Blood 09/06/2024 9:52 AM PACKAGING DESIGN ENGINEER 09/06/2024 11:49 AM PACKAGING DESIGN ENGINEER Narrative [facility] - 09/06/2024 1:32 PM PACKAGING DESIGN ENGINEER Current interpretive data was last updated August 01, 2021. For adults ages 40-79, the ACC/AHA recommends discussing your 10-year atherosclerotic cardiovascular disease risk with your health care provider. https://www.acc.org/ASCVDApp Jayesh Betancur MD LAB BLOOD ORDERABLES Final R esult Performing Organization Address City/[facility]/ZIP Co de Phone Number [facility] * (ABNORMAL) Comprehensive metabolic panel (09/06/2024 9:52 AM PACKAGING DESIGN ENGINEER) Total Protein 9.0(H) 6.1 - 8.4 g/dL [...] [facility] Blood 09/06/2024 9:52 AM PACKAGING DESIGN ENGINEER 09/06/2024 11:49 AM PACKAGING DESIGN ENGINEER us Jayesh Betancur MD LAB BLOOD ORDERABLES Final R esult [facility] * Cardiology Document Scan (08/15/2024 4:06 PM PACKAGING DESIGN ENGINEER) Anatomical Region Laterality Modality Other us Nadira Leyva NP CV CARDIAC SERVICES PROCEDUR ES Final Result * Cardiology Document Scan (08/14/2024 4:05 PM PACKAGING DESIGN ENGINEER) Anatomical Region Laterality Modality Other Nadira Leyva INSEAM TRIMMING MACHINE OPERATOR CV CARDIAC SERVICES PROCEDUR ES Final Result * Cardiology Document Scan (08/11/2024 4:03 PM PACKAGING DESIGN ENGINEER) Anatomical Region Laterality Modality Other Nadira Leyva INSEAM TRIMMING MACHINE OPERATOR CV CARDIAC SERVICES PROCEDUR ES Final Result from Last 3 Months Insurance [employer] [facility] Care Teams Welder Experimental Relationship Specialty Start Date End Date Mary Vazquez MD PCP - General Family Practice 03/05/20
--- OUTSIDE RECORDS SUMMARY | 2024-11-01 17:27 | XMS_ITS | Encounter Summary ---
Author Organization [facility] Address [address] [facility] [place] [address] Care Team Providers Care Crew Scheduler Name Role Phone Artemio Gaviria MD Primary Care Provider [phone] Encounter Details Date Type Department Care Team (Late st Contact Info) Description 06/12/2021 Lab Requisition [facility] [address] [facility] [place] [address] [place] [address] Social History Tobacco Use Types Packs/Day Years [...] 12:00 AM CDT) Case Report Dermatopathology Report Case: [id number] Authorizing Provider: Renaldo Muniz MD Collected: 06/11/2021 12:00 AM Ordering Location: [facility] Received: 06/12/2021 01:27 PM Pathologist: Twila Helms MD Specimens: A) - Skin, left superior medial buttock B) - Skin, right flank in abdomen fold C) - Skin, right lateral lower abd fold 10:50 PM CDT DERMATOPATHOLOGY LABORATORY Final Diagnosis Specimen A. SKIN, left superior medial buttock: COMPOUND NEVUS WITH CONGENITAL FEATURES, IRRITATED (D22.5) Specimen B. 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 SKIN, right lateral lower abd fold: COMPOUND MELANOCYTIC NEVUS, IRRITATED (D22.5) 10:50 PM [facility] DERMATOPATHOLOGY [facility]ORATORY Clinical History A-C: R/O dys nevus 10:50 PM [facility] DERMATOPATHOLOGY LABORATORY Gross Description Specimen [...] measuring 18x5x1 mm. Jar 0. 10:50 PM [facility] DERMATOPATHOLOGY LABORATORY Microscopic Description Specimen [...] characteristic determined by the Dermatopathology Laboratory at [facility], directed by Dr. Lashanda Parks. These tests need not be, and therefore are not, approved by the [place] Food and Drug Administration. The tests are used for clinical purposes. Billing Codes Specimen Charges Stain Charges 69589 39084 19731 1 1 1 87399 70459 36351 1 1 1 10:50 PM CDT DERMATOPATHOLOGY [...] LAB - PATHOLOGY/CYTO LOGY ORDERABLES DERMATOPATHOLOGY LABORATORY [facility] - Department of Dermatology [facility] Medicine [address] [place] [address], [address] [phone] documented in this encounter Visit Diagnoses Not on filedocumented in this encounter Care Teams Crew Scheduler Relationship Specialty Start Date End Date Artemio Gaviria MD [address] [place] [address] PCP - General 06/26/19 documented as of this encounter
--- OUTSIDE RECORDS SUMMARY | 2024-11-01 17:27 | XMS_ITS | Encounter Summary ---
Author Organization [facility] Address [address] [place] [address] Care Team Providers Care It Associate Name Role Phone Artemio Gaviria MD Primary Care Provider [phone] Encounter Details Date Type Department Care Team (Late st Contact Info) Description 04/23/2022 Lab Requisition [facility] Lab [address] [facility] [place] [id number] [place] [address] Social History Tobacco Use Types Packs/Day Years [...] AM CDT) Case Report Dermatopathology Report Case: [id number] Authorizing Provider: Renaldo Muniz MD Collected: 04/22/2022 12:00 AM Ordering Location: [facility] Received: 04/23/2022 04:41 PM Pathologist: Reny Clark MD Specimen: Skin, below left popliteal fossa 3:29 PM CDT DERMATOPATHOLOGY LABORATORY Final Diagnosis Specimen A. SKIN, below left popliteal fossa: COMPOUND MELANOCYTIC NEVUS, IRRITATED (D22.72) 2 3:29 PM CDT DERMATOPATHOLOGY LABORATORY Clinical History R/O Dysplastic Nevus 2 3:29 PM CDT DERMATOPATHOLOGY LABORATORY Gross Description Specimen A: Received is one formalin filled container labeled with the patient's name and designated below left popliteal fossa. The specimen consists of a shave biopsy measuring 3y7x9dh. Jar 0. 2 3:29 PM CDT DERMATOPATHOLOGY LABORATORY Microscopic Description Specimen A. SKIN, below left popliteal fossa: There is melanin pigment in the stratum corneum. There are nests of melanocytes at the dermal-epidermal junction and within the dermis. 2 3:29 PM CDT DERMATOPATHOLOGY LABORATORY Disclaimer An external and internal positive and negative controls are appropriate for the histochemical, immunohistochemical and immunofluorescence stain(s) in this case (if any), except where stated explicitly. The performance characteristics of the stain(s) cited in this report were developed and its performance characteristic determined by the Dermatopathology Laboratory at [facility], directed by Dr. Lashanda Parks. These tests need not be, and therefore are not, approved by the [place] Food and Drug Administration. The tests are used for clinical purposes. Billing Codes Specimen Charges Stain Charges 67144 1 2 3:29 PM CDT DERMATOPATHOLOGY LABORATORY Embedded Images 2 3:29 PM CDT DERMATOPATHOLOGY LABORATORY Pathology/Cytolog y TISSUE SPECIMEN FROM SKIN / Unknown 04/22/2022 04/23/2022 4:41 PM CDT Renaldo Muniz MD LAB - PATHOLOGY/CYTO LOGY ORDERABLES DERMATOPATHOLOGY LABORATORY [facility] - Department of Dermatology [address], [address] [phone] documented in this encounter Visit Diagnoses Not on filedocumented in this encounter Care Teams It Associate Relationship Specialty Start Date End Date Artemio Gaviria MD [address] [place] [address] PCP - General 06/26/19 documented as of this encounter
--- OUTSIDE RECORDS SUMMARY | 2024-11-01 17:27 | XMS_ITS | Encounter Summary ---
Author Organization [facility] Address [address] [place] [address] Care Team Providers Care Web Development Director Name Role Phone Artemio Gaviria MD Primary Care Provider [phone] Encounter Details Date Type Department Care Team (Late st Contact Info) Description 01/15/[address] [facility] DermPath Lab [address] [place] [phone] Renaldo [place] [address] Social History Tobacco Use Types Packs/Day Years [...] AM CDT) Case Report Dermatopathology Report Case: [id number] Authorizing Provider: Renaldo Muniz MD Collected: 01/14/2021 12:00 AM Ordering Location: [facility] DermPath Lab Received: 01/15/2021 01:48 PM Pathologist: Grace Norton MD Specimens: A) - Skin, left upper lat back B) - Skin, right lower back C) - Skin, right lower back lat D) - Skin, below right ear 4:27 PM CDT DERMATOPATHOLOGY LABORATORY Final Diagnosis [...] NEVUS WITH ARCHITECTURAL DISORDER) (D22.4) 4:27 PM [facility] DERMATOPATHOLOGY LABORATORY Clinical History A-D: R/O dys nevus. 4:27 PM [facility] DERMATOPATHOLOGY LABORATORY Gross Description Specimen A: Received is one formalin filled container labeled with the patient's name and designated left upper lat back. The specimen consists of a shave biopsy measuring [id number]. Jar 0. Specimen B: Received is one formalin filled container labeled with the patient's name and designated right lower back. The specimen consists of a shave biopsy measuring [id number]. Jar 0. Specimen C: Received is one formalin filled container labeled with the patient's name and designated right lower back lat. The specimen consists of a shave biopsy measuring 5w6u1bv. Jar 0. Specimen D: Received is one formalin filled container labeled with the patient's name and designated below right ear. The specimen consists of a shave biopsy measuring 8t8q2os. Jar 0. 1 4:27 PM [facility] DERMATOPATHOLOGY LABORATORY Microscopic Description Specimen A. [...] (Compound Joel's Nevus or Compound Dysplastic Nevus) 1 4:27 PM CDT DERMATOPATHOLOGY LABORATORY Disclaimer An external and internal positive and negative controls are appropriate for the histochemical, immunohistochemical and immunofluorescence stain(s) in this case (if any), except where stated explicitly. The performance characteristics of the stain(s) cited in this report were developed and its performance characteristic determined by the Dermatopathology Laboratory at [facility], directed by Dr. Lashanda Parks. These tests need not be, and therefore are not, approved by the [place] Food and Drug Administration. The tests are used for clinical purposes. Billing Codes Specimen Charges Stain Charges 39077 77733 17481 97805 1 1 1 1 65076 95334 80027 94901 1 1 1 1 1 4:27 PM CDT DERMATOPATHOLOGY LABORATORY Embedded Images 1 4:27 PM CDT DERMATOPATHOLOGY LABORATORY Pathology/Cytology TISSUE [...] LAB - PATHOLOGY/CYTO LOGY ORDERABLES DERMATOPATHOLOGY LABORATORY [facility] - Department of Dermatology [facility] Specialized Medicine [address] [place] [address], [address] [phone] documented in this encounter Visit Diagnoses Not on filedocumented in this encounter Care Teams Web Development Director Relationship Specialty Start Date End Date Artemio Gaviria MD [address] [place] [phone] PCP - General 06/26/19 documented as of this encounter
--- OUTSIDE RECORDS SUMMARY | 2024-11-01 17:27 | XMS_ITS | Referral Summary ---
Author Organization [facility] Address [address] [place] [address] Care Team Providers Care Payroll Supervisor Name Role Phone Artemio Gaviria MD Primary Care Provider [phone] Source Comments [facility],non-owned Affiliates and Associated Physician Practices is amultiple site organization consisting of ambulatory clinics and hospital sitesin [place], [place], [place] and [place]. This disclosure is being madepursuant to the Care Everywhere program and may not contain all information available regarding this patient. Last updated 18.[facility] Social History Tobacco Use Types Packs/Day Years Used Date Smoking Tobacco: Never Assessed Sex and Gender Information Value Date Recorded Sex Assigned at Not on file Gender Identity Not on file Sexual Orientation Not on file Plan of Treatment Not on file Care Teams Payroll Supervisor Relationship Specialty Start Date End Date Artemio Gaviria MD [address] [place] [phone] PCP - General 06/26/19
--- OUTSIDE RECORDS SUMMARY | 2024-11-01 17:27 | XMS_ITS | Patient Health Summary ---
Author Organization [facility] Address [address] [place] [address] Care Team Providers Care Rapid Outsole Stitcher Name Role Phone Artemio Gaviria MD Primary Care Provider [phone] [facility],non-owned Affiliates and Associated Physician Practices is amultiple site organization consisting of ambulatory clinics and hospital sitesin [place], [place], [place] and [place]. This disclosure is being madepursuant to the Care Everywhere program and may not contain all information available regarding this patient. Last updated 18.[facility] Social History Tobacco Use Types Packs/Day Years [...] period is included. Case Report Dermatopathology Report Case: [id number] Authorizing Provider: Renaldo Muniz MD Collected: 04/22/2022 12:00 AM Ordering Location: [facility] DermPath Lab Received: 04/23/2022 04:41 PM Pathologist: [...] specimen consists of a shave biopsy measuring 9e7o0hs. Jar 0. 2 3:29 PM CDT DERMATOPATHOLOGY [...] characteristic determined by the Dermatopathology Laboratory at [facility], directed by Dr. Lashanda Parks. These tests need not be, and therefore are not, approved by the [place] Food and Drug Administration. The tests are used for clinical purposes. Billing Codes Specimen Charges Stain Charges 96083 1 2 3:29 PM CDT DERMATOPATHOLOGY LABORATORY Embedded Images 2 3:29 PM CDT DERMATOPATHOLOGY LABORATORY Pathology/Cytolog y TISSUE SPECIMEN FROM SKIN / Unknown 04/22/2022 04/23/2022 4:41 PM CDT Renaldo Muniz MD LAB - PATHOLOGY/CYTO LOGY ORDERABLES DERMATOPATHOLOGY LABORATORY [facility] - Department of Dermatology [facility] Medicine [address] [place] [address], [address] Floor [address] [phone] Care Teams Rapid Outsole Stitcher Relationship Specialty Start Date End Date Artemio Gaviria MD [address] [place] [address] PCP - General 06/26/19
[2024-11-01 17:28] LABS: NT Pro B Type Natriuretic Pept 1090 pg/mL (19.9-100)
--- OUTSIDE RECORDS SUMMARY | 2024-11-01 17:28 | XMS_ITS | Encounter Summary ---
Author Organization [facility] Address [address] [place] [address] Phone Care Team Providers Care Meter Maker Name Role Phone Mary Vazquez MD Primary Care Provider Encounter Details Date Type Department Care Team (Latest Contact Info) Description 10/27/2024 Orders Only [facility] Scanning, Provider Social History Tobacco Use Types Packs/Day Years Used Date Smoking Tobacco: Never Smokeless Tobacco: Never Alcohol Use Standard Drinks/Week Comments Yes 0 [...] on file Legal Sex Female 6:34 AM ASSISTANT UNIT FORESTER Gender Identity Female 01/18/2022 11:01 PM CDT Sexual Orientation Straight 01/18/2022 11 :01 PM CDT documented as of this encounter Plan of Treatment Not on file documented as of this encounter Procedures Procedure Name Priority Date/Time Associated Diagnosis Comments SCAN - LABS 10/27/2024 documented in this encounter Results * SCAN - LABS (10/27/2024) us Provider Scanning Final Result documented in this encounter Visit Diagnoses Not on filedocumented in this encounter Care Teams Meter Maker Relationship Specialty Start Date End Date Mary Vazquez MD PCP - General Family Practice 03/05/20 documented as of this encounter
--- OUTSIDE RECORDS SUMMARY | 2024-11-01 17:28 | XMS_ITS | Encounter Summary ---
Author Organization [facility] Address [address] [place] [address] Care Team Providers Care Rivet Machine Operator Name Role Phone Artemio Gaviria MD Primary Care Provider [phone] Encounter Details Date Type Department Care Team (Late st Contact Info) Description 10/12/2019 Lab Requisition [facility] DermPath Lab [address] [place] [phone] Renaldo Muniz MD [place] [address] Social History Tobacco Use Types Packs/Day Years [...] Comments DERMATOPATHOLOGY Routine 10/11/2019 12:0 0 AM PACKAGE LINER documented in this encounter Results * DERMATOPATHOLOGY (10/11/2019 12:00 AM PACKAGE LINER) Case Report Dermatopathology Report Case: [id number] Authorizing Provider: Renaldo Muniz MD Collected: 10/11/2019 12:00 AM Ordering Location: [facility] DermPath Lab Received: 10/12/2019 12:56 PM Pathologist: Reny Clark MD Specimens: A) - Skin, right parapsinal lower back B) - Skin, right mid lat back C) - Skin, right lower back 0 2:11 PM PACKAGE [facility]ER DERMATOPATHOLOGY LABORATORY Final Diagnosis Specimen A. SKIN, [...] WITH ARCHITECTURAL DISORDER) (D22.5) 0 2:11 PM [facility] DERMATOPATHOLOGY LABORATORY Clinical History A-C: R/O dysplastic lentinginous nevus 0 2:11 PM [facility] DERMATOPATHOLOGY LABORATORY Gross Description Specimen A: Received [...] 10x7x1 mm. Jar 0. 0 2:11 PM [facility] DERMATOPATHOLOGY LABORATORY Microscopic Description Specimen A. SKIN, [...] or Compound Dysplastic Nevus) 0 2:11 PM [facility] DERMATOPATHOLOGY LABORATORY Disclaimer An external and internal positive and negative controls are appropriate for the histochemical, immunohistochemical and immunofluorescence stain(s) in this case (if any), except where stated explicitly. The performance characteristics of the stain(s) cited in this report were developed and its performance characteristic determined by the Dermatopathology Laboratory at [facility], directed by Dr. Lashanda Parks. These tests need not be, and therefore are not, approved by the [place] Food and Drug Administration. The tests are used for clinical purposes. Billing Codes Specimen Charges Stain Charges 55166 53294 56218 1 1 1 0 2:11 PM [facility] DERMATOPATHOLOGY LABORATORY Embedded Images 0 2:11 PM [facility] DERMATOPATHOLOGY LABORATORY Pathology/Cytology TISSUE SPECIMEN FROM SKIN / Unknown 10/11/2019 10/12/2019 12:56 PM PACKAGE LINER Miscellaneous samples (specimen) TISSUE SPECIMEN FROM SKIN / Unknown 10/11/2019 10/12/2019 12:56 PM PACKAGE LINER Miscellaneous samples (specimen) TISSUE SPECIMEN FROM SKIN / Unknown 10/11/2019 10/12/2019 12:56 PM PACKAGE LINER Renaldo Muniz MD LAB - PATHOLOGY/CYTO LOGY ORDERABLES DERMATOPATHOLOGY LABORATORY [facility] - Department of Dermatology [facility] [facility], 5th Floor Lab [address] [phone] documented in this encounter Visit Diagnoses Not on filedocumented in this encounter Care Teams Rivet Machine Operator Relationship Specialty Start Date End Date Artemio Gaviria MD [address] [place] [address] PCP - General 06/26/19 documented as of this encounter
--- OUTSIDE RECORDS SUMMARY | 2024-11-01 17:28 | XMS_ITS | CONTINUITY OF CARE DOCUMENT ---
Author Name bala mckenna Address Unknown Organization [facility] Address [address] [place] [address] [address] [place] [address] Phone [phone] Care Team Providers Care Workers Compensation Examiner Name Role Phone Darya CONTEH, Adonay Unavailable [phone] Adonay Lackey MD Unavailable [phone] George CONTEH, Mary Unavailable INSURANCE PROVIDERS Payer name Policy type / Coverage type [place] red constitution party ID [employer] FAMILY [employer] Medicaid 4 [id number]
--- OUTSIDE RECORDS SUMMARY | 2024-11-01 17:28 | XMS_ITS | Encounter Summary ---
Author Organization [facility] Address [address] [facility] [place] [address] Care Team Providers Care National Park Ranger Name Role Phone Artemio Gaviria MD Primary Care Provider [phone] Encounter Details Date Type Department Care Team (Late st Contact Info) Description 12/21/2019 Lab Requisition [facility] DermPath Lab [address] [place] [address] [place] [address] Social History Tobacco Use Types Packs/Day Years [...] AM CDT) Case Report Dermatopathology Report Case: [id number] Authorizing Provider: Renaldo Muniz MD Collected: 12/20/2019 12:00 AM Ordering Location: [facility] DermPath Lab Received: 12/21/2019 12:58 PM Pathologist: Reny Clark MD Specimens: A) - Skin, left lat upper back above scar B) - Skin, left upper back above scar C) - Skin, left med upper back above scar D) - Skin, left paraspinal mid upper back 0 2:28 PM T DERMATOPATHOLOGY LABORATORY Final Diagnosis Specimen [...] A-D: R/O dys nevus. 0 2:28 PM T DERMATOPATHOLOGY LABORATORY Gross Description Specimen A: Received is one formalin filled container labeled with the patient's name and designated left lat upper back above scar. The specimen consists of a shave biopsy measuring 6g4u0od. Jar 0. Specimen B: Received is one formalin filled container labeled with the patient's name and designated left upper back above scar. The specimen consists of a shave biopsy measuring [id number]. Jar 0. Specimen C: Received is one formalin filled container labeled with the patient's name and designated left med upper back above scar. The specimen consists of a shave biopsy measuring [id number]. Jar 0. Specimen D: Received is one formalin filled container. The specimen consists of a shave biopsy measuring 7l9f2df. Jar 0. 0 2:28 PM CDT DERMATOPATHOLOGY [...] characteristic determined by the Dermatopathology Laboratory at [facility], directed by Dr. Lashanda Parks. These tests need not be, and therefore are not, approved by the [place] Food and Drug Administration. The tests are used for clinical purposes. Billing Codes Specimen Charges Stain Charges 28334 96968 00098 78937 1 1 1 1 0 2:28 PM [...] - PATHOLOGY/CYTO LOGY ORDERABLES DERMATOPATHOLOGY LABORATORY [facility] - Department of Dermatology [address] [place] [address], 5th Floor Lab [address] [phone] documented in this encounter Visit Diagnoses Not on filedocumented in this encounter Care Teams National Park Ranger Relationship Specialty Start Date End Date Artemio Gaviria MD [address] [place] [phone] PCP - General 06/26/19 documented as of this encounter
--- OUTSIDE RECORDS SUMMARY | 2024-11-01 17:28 | XMS_ITS | Clinical Summary ---
Author Organization [facility] Address [address] [place] [address] [place] [address] Care Team Providers Care Loom Changeover Operator Name Role Phone Mary Vazquez MD Primary Care Provider Allergies Active Allergy Reactions Criticality Noted Date Comments Amoxicillin Rash Medium 02/08/2018 Penicillins Rash Low 02/02/2019 Sulfa (Sulfonamide Antibiotics) Hives,Rash,Unknown High 01/31/2019 Sulfamethoxazole-Trimethoprim Rash Low 2018 Medications triamterene-hyd roCHLOROthiazid e (DYAZIDE) 37.5-25 mg capsule Take 1 Capsule by mouth daily cold roll inspector. Active hydroxychloroqu ine (PLAQUENIL) 200 mg tablet [...] daily per Lupus Dr. Ashly Florez MD @@[facility] Active albuterol sulfate 90 mcg/Actuation [...] Comments Blood Pressure 122/78 07/16/2022 3:27 PM PILOT PLANT TECHNICIAN Pulse 98 07/16/2022 3:27 PM PILOT PLANT TECHNICIAN Temperature 37.2 C (98.9 F) 07/16/2022 3:27 PM PILOT PLANT TECHNICIAN Respiratory Rate 16 07/16/2022 3:27 PM PILOT PLANT TECHNICIAN Oxygen Saturation 96% 07/16/2022 3:27 PM PILOT PLANT TECHNICIAN Inhaled Oxygen Concentration - - Weight 134.9 kg (297 lb 6.4 oz) 07/16/2022 3:27 PM PILOT PLANT TECHNICIAN Height 154.9 cm (5' 1 ) 01/15/2022 3:09 PM CDT Body Mass Index 56.19 01/15/2022 3:09 PM CDT Plan of Treatment Health Maintenance Due Date Last Done Comments DTAP/TDAP/TD VACCINES (1 - Tdap) 1993 HEPATITIS [...] 2, 06/19/2020, 06/18/2020, Additional history exists Insurance [employer] TRADITIONAL Care Teams Loom Changeover Operator Relationship Specialty Start Date End Date Mary Vazquez MD [address] [place] [phone] PCP - General Family Practice 06/30/19
--- OUTSIDE RECORDS SUMMARY | 2024-11-01 17:28 | XMS_ITS | Clinical Summary ---
Author Organization [facility] Address [address] [place] [address] Care Team Providers Care Software Test Analyst Name Role Phone Ary Wooten PHOTO LAB MANAGER Primary Care Provider [phone] Social History Tobacco Use Types Packs/Day Years [...] 2) 2024 Influenza Adult (#1) 2024 Meningococcal B Vaccine Aged Out No l onger eligible based on patient's age to complete this topic Meningococcal Vaccine Aged Out No trace danielle [...] complete this topic Insurance MEDICAID Care Teams Software Test Analyst Relationship Specialty Start Date End Date Ary Wooten FNP [address] [place] [address] PCP - General NURSE PRACTITIONER 04/04/24
--- OUTSIDE RECORDS SUMMARY | 2024-11-01 17:28 | XMS_ITS | Referral Summary ---
Author Organization [facility] Address [address] [place] [address] Care Team Providers Care [employer] Caretaker Name Role Phone Mary Vazquez MD Primary Care Provider Encounters Date Type Department Care Team Description 10/31/2024 Telephone [facility] Cardiology [address] [place] [address] [place] [address] Jayesh Betancur MD 10/31/2024 Orders Only [facility] Scanning, Provider 10/27/2024 Orders Only [facility] Scanning, Provider 10/25/2024 Telephone [facility] Cardiology [address] [place] [address] [place] [address] Jayesh Betancur MD 10/24/2024 Telephone [facility] Cardiology [address] [place] [address] [place] [address] Jayesh Betancur MD 09/06/2024 9:52 AM ALKYLATION OPERATOR - 09/06/2024 11:59 PM ALKYLATION OPERATOR Hospital Encounter [address] [address] Chronic diastolic heart failure (HCC); SOB (shortness of breath); Primary hypertension Discharge Disposition: Discharge to home or self care 09/06/2024 9:45 AM ALKYLATION OPERATOR Lab [facility] Endocrinology Metabolism and Lipid [address] [place] [address] [place] [address] Chronic diastolic heart failure (HCC); SOB (shortness of breath); Primary hypertension 09/06/2024 9:00 AM ALKYLATION OPERATOR Office Visit [facility] Cardiology [address] [facility] 8th [place] [address] [place] [address] Jayesh Betancur MD Chronic diastolic heart failure (HCC) (Primary Dx); SOB (shortness of breath); Primary hypertension 08/21/2024 Orders Only [facility] Cardiology [address] [place] [address] Nadira Leyva NP from Last [...] by mouth daily 90 tablet 3 09/06/2024 Active Active Problems Problem Noted Date Diagnosed Date Nonrheumatic tricuspid valve regurgitation 10/07 /2024 Venous insufficiency 06/05/2024 Chronic diastolic heart failure [...] Found to be [place] +, +anti SSA, EAR SPECIALIST, Sm. Was on AZA-stopped due to being stable. Has history of pleural effusion, was following with Computer Help Desk Specialist, but needs to establish with a new one. Sister has SLE with LN s/p Cytoxan (Mindy Arguello) Immunizations Immunization Administration Dates Next Due Influenza, [...] on file Legal Sex Female 6:34 AM ALKYLATION OPERATOR Gender Identity Female 01/18/2022 11:01 PM CDT Sexual Orientation Straight 01/18/2022 11 :01 PM CDT Last Filed Vital Signs Vital Sign Reading Time Taken Comments Blood Pressure 98/68 09/06/2024 8:42 AM ALKYLATION OPERATOR Pulse 73 09/06/2024 8:42 AM ALKYLATION OPERATOR Temperature 36.5 C (97.7 F) 07/20/2023 7:58 AM ALKYLATION OPERATOR Respiratory Rate 14 01/26/2023 8:26 AM CDT Oxygen Saturation 96% 09/06/2024 8:42 AM ALKYLATION OPERATOR Inhaled Oxygen Concentration - - Weight 114.1 kg (251 lb 9.6 oz) 09/06/2024 8:42 AM ALKYLATION OPERATOR Height 162.6 cm (5' 4 ) 09/06/2024 8:42 AM ALKYLATION OPERATOR Body Mass Index 43.19 09/06/2024 8:42 AM ALKYLATION OPERATOR Plan of Treatment Not on file Procedures Procedure Name Priority Date/Time Associated Diagnosis Comments SCAN - LABS 10/31/2024 SCAN - LABS 10/27/2024 CBC WITH DIFF, BJ Routine 09/06/2024 9:5 2 AM ALKYLATION OPERATOR Chronic diastolic heart failure (HCC) SOB (shortness of breath) Primary hypertension APOLIPOPROTEIN B Routine 09/06/2024 9:52 AM ALKYLATION OPERATOR Chronic diastolic heart failure (HCC) SOB (shortness of breath) Primary hypertension PRO B-TYPE NATRIURETIC PEPTIDE Routine 09/06/2024 9:52 AM ALKYLATION OPERATOR Chronic diastolic heart failure (HCC) SOB (shortness of breath) Primary hypertension LIPOPROTEIN A (LPA) Routine 09/06/2024 9 :52 AM ALKYLATION OPERATOR Chronic diastolic heart failure (HCC) SOB (shortness of breath) Primary hypertension IRON PROFILE W/ IBC Routine 09/06/2024 9 :52 AM ALKYLATION OPERATOR Chronic diastolic heart failure (HCC) SOB (shortness of breath) Primary hypertension HEMOGLOBIN A1C Routine 09/06/2024 9:52 AM ALKYLATION OPERATOR Chronic diastolic heart failure (HCC) SOB (shortness of breath) Primary hypertension COMPREHENSIVE METABOLIC PANEL Routine 09/06/2024 9:52 AM ALKYLATION OPERATOR Chronic diastolic heart failure (HCC) SOB (shortness of breath) Primary hypertension LIPID PANEL Routine 09/06/2024 9:52 AM ALKYLATION OPERATOR Chronic diastolic heart failure (HCC) SOB (shortness of breath) Primary hypertension CARDIOLOGY DOCUMENT SCAN Routine 08/15/2024 4:06 PM ALKYLATION OPERATOR CARDIOLOGY DOCUMENT SCAN Routine 08/14/2024 4:05 PM ALKYLATION OPERATOR CARDIOLOGY DOCUMENT SCAN Routine 08/11/2024 4:03 PM ALKYLATION OPERATOR from Last 3 Months Results * SCAN - LABS (10/31/2024) us Provider Scanning Final Result * SCAN - LABS (10/27/2024) us Provider Scanning Final Result * (ABNORMAL) CBC with Diff, BJ (09/06/2024 9:52 AM ALKYLATION OPERATOR) [facility] White Blood Count 4.10 3.80 - 9.90 K/cumm [facility] Comment: Red Blood Count 6.41(H) 3.90 - 5.20 M/cumm [facility] Hemoglobin 14.9 11.9 - 15.5 g/dL [facility] Hematocrit 51.2(H) 35.6 - 45.5 % [facility] Platelet Count 146(L) 150 - 400 K/cumm [facility] MCV 79.9(L) 81.3 - 96.4 fl [facility] MCH 23.2(L) 27.1 - 33.3 pg [facility] MCHC 29.1(L) 32.3 - 35.7 g/dL [facility] MPV Not Measured 9.1 - 12.3 fl [facility] RDW SD 55.6(H) 35.7 - 48.1 fL [facility] RDW CV 19.9(H) 11.1 - 14.9 % [facility] Neut Abs 2.6 1.5 - 6.5 K/cumm [facility] Imm Gran Abs 0.00 0.00 - 0.10 K/cumm [facility] Lymph Abs 1.00 0.80 - 3.30 K/cumm [facility] Travis Abs 0.30 0.20 - 0.80 K/cumm [facility] Eos Abs 0.10 0.00 - 0.50 K/cumm [facility] Baso Abs 0.00 0.00 - 0.10 K/cumm [facility] Neut Pct 64.1 % [facility] Imm Gran Pct 0.2 % [facility] Lymph Pct 24.6 % [facility] Travis Pct 8.0 % [facility] Eos Pct 2.4 % [facility] Baso Pct 0.7 % [facility] NRBC Abs 0.00 0.00 - 0.01 K/cumm [facility] 09/06/2024 9:52 AM ALKYLATION OPERATOR 09/06/2024 11:49 AM ALKYLATION OPERATOR Narrative [facility] - 09/07/2024 8:35 AM ALKYLATION OPERATOR Testing performed at [facility] - [address] [place] [address]. us Jayesh Betancur MD LAB BLOOD ORDERABLES Final R esult [facility] * Pro B-type natriuretic peptide (09/06/2024 9:52 AM ALKYLATION OPERATOR) NT-proBNP <50 <=300 pg/mL Comment: Interpretive Comments: [...] Heart J. 2006:27:330-337. 2. Sandra RW, Dillon AM. J. AM Kerline Cardiol: Cardiovasc Imag. 2009;2: 216- 225. Interpretive Data Last Revised Date: 2018. Blood 09/06/2024 9:52 AM ALKYLATION OPERATOR 09/06/2024 11:28 AM ALKYLATION OPERATOR us Jayesh Betancur MD LAB BLOOD ORDERABLES Final R esult [facility] Department of Laboratories [place], [place] [id number] * Iron profile w/ IBC (09/06/2024 9:52 AM ALKYLATION OPERATOR) Iron 96 30 - 160 ug/dL [facility] TIBC 292 220 - 420 ug/dL [facility] Iron saturation 32.9 11.0 - 52.0 % [facility] Blood 09/06/2024 9:52 AM ALKYLATION OPERATOR 09/06/2024 11:49 AM ALKYLATION OPERATOR Jayesh Betancur MD LAB BLOOD ORDERABLES Final R esult [facility] * Apolipoprotein B, serum (09/06/2024 9:52 AM ALKYLATION OPERATOR) Apolipoprotein B 90 mg/dL [facility] Comment: REFERENCE VALUE Desirable: <90 Above Desirable: 90-99 Borderline high: 100-119 High: 120-139 Very high: > or = 140 Test Performed by: [place] [address] Clinic Physician: Yusuf Lorenzo Ph.D.; CLIA# [id number] Blood 09/06/2024 9:52 AM ALKYLATION OPERATOR 09/06/2024 1:01 PM ALKYLATION OPERATOR Jayesh Betancur MD LAB BLOOD ORDERABLES Final R esult [facility] Department [place] [address] [facility] * Lipoprotein a (LPa) (09/06/2024 9:52 AM ALKYLATION OPERATOR) Lipoprotein (A) 37.9 <=75.0 nmol/L [facility] [...] its performance characteristics have been determined by [facility]. This assay in units of nmol/L has not been cleared or approved by the FDA, although they are provided by the personal insurance advisor and widely accepted as the preferred units for reporting. [facility] is regulated under CLIA as qualified to perform high-complexity testing. Blood 09/06/2024 9:52 AM ALKYLATION OPERATOR 09/06/2024 11:49 AM ALKYLATION OPERATOR Jayesh Betancur MD LAB BLOOD ORDERABLES Final R esult Performing Organization Address [facility] Co de Phone Number [facility] * (ABNORMAL) Hemoglobin A1c (09/06/2024 9:52 AM ALKYLATION OPERATOR) HbA1c 6.1(H) 5.1 - 5.6 % [facility] Comment: HBA1C 5.1 - 5.6 = NORMAL HBA1C 5.7 - 6.4 = PREDIABETES HBA1C >=6.5 = PROVISIONAL DIAGNOSIS OF DIABETES Estimated Average Glucose 128 mg/dL [facility] Blood 09/06/2024 9:52 AM ALKYLATION OPERATOR 09/06/2024 11:49 AM ALKYLATION OPERATOR Jayesh Betancur MD LAB BLOOD ORDERABLES [facility] Performing Organization Address [facility] Co de Phone Number [facility] * (ABNORMAL) Lipid panel (09/06/2024 9:52 AM ALKYLATION OPERATOR) Triglycerides 161(H) <150 mg/dL [facility] Comment: Desirable: <150 mg/dL, fasting <175 mg/dL, non-fasting Persistently elevated triglycerides may enhance atherosclerotic cardiovascular disease. Total Cholesterol 172 <200 mg/dL [facility] Total HDL-C Direct 36(L) >50 mg/dL [facility] Comment: A low HDL-C may be inidcative of metabolic syndrome and enhance atherosclerotic cardiovascular disease risk. Non-HDL cholesterol 136 <220 mg/dL [facility] Friedewald LDL Chol 104 <190 mg/dL [facility] Comment: The Friedewald equation is accurate in most patients when triglycerides are less than 150 mg/dL. Consider the use of non-HDL-C or Apo B to help estimate atherosclerotic cardiovascular diesase risk if triglycerides are elevated. Blood 09/06/2024 9:52 AM ALKYLATION OPERATOR 09/06/2024 11:49 AM ALKYLATION OPERATOR Narrative [facility] - 09/06/2024 1:32 PM ALKYLATION OPERATOR Current interpretive data was last updated August 01, 2021. For adults ages 40-79, the ACC/AHA recommends discussing your 10-year atherosclerotic cardiovascular disease risk with your health care provider. https://www.acc.org/ASCVDApp us Jayesh Betancur MD LAB BLOOD ORDERABLES Final R esult [facility] * (ABNORMAL) Comprehensive metabolic panel (09/06/2024 9:52 AM ALKYLATION OPERATOR) Total Protein 9.0(H) 6.1 - 8.4 g/dL [...] [facility] Blood 09/06/2024 9:52 AM ALKYLATION OPERATOR 09/06/2024 11:49 AM ALKYLATION OPERATOR Jayesh Betancur MD LAB BLOOD ORDERABLES Final R esult [facility] * Cardiology Document Scan (08/15/2024 4:06 PM ALKYLATION OPERATOR) Anatomical Region Laterality Modality Other Nadira Leyva NP CV CARDIAC SERVICES PROCEDUR ES Final Result * Cardiology Document Scan (08/14/2024 4:05 PM ALKYLATION OPERATOR) Anatomical Region Laterality Modality Other Nadira Leyva NP CV CARDIAC SERVICES PROCEDUR ES Final Result * Cardiology Document Scan (08/11/2024 4:03 PM ALKYLATION OPERATOR) Anatomical Region Laterality Modality Other Nadira Leyva NP CV CARDIAC SERVICES PROCEDUR ES Final Result from Last 3 Months Insurance [employer] [facility] Care Teams [employer] Caretaker Relationship Specialty Start Date End Date Mary Vazquez MD PCP - General Family Practice 03/05/20
--- OUTSIDE RECORDS SUMMARY | 2024-11-01 17:28 | XMS_ITS | Encounter Summary ---
Author Organization [facility] Address [address] [place] [address] Phone Care Team Providers Care Voting Machine Mechanic Name Role Phone Mary Vazquez MD Primary Care Provider Encounter Details Date Type Department Care Team (Latest Contact Info) Description 10/31/2024 Orders Only [facility] Scanning, [...] on file Legal Sex Female 6:34 AM FRET SAW OPERATOR Gender Identity Female 01/18/2022 11:01 PM CDT Sexual Orientation Straight 01/18/2022 11 :01 PM CDT documented as of this encounter Plan of Treatment Not on file documented as of this encounter Procedures Procedure Name Priority Date/Time Associated Diagnosis Comments SCAN - LABS 10/31/2024 documented in this encounter Results * SCAN - LABS (10/31/2024) us Provider Scanning Final Result documented in this encounter Visit Diagnoses Not on filedocumented in this encounter Care Teams Voting Machine Mechanic Relationship Specialty Start Date End Date Mary Vazquez MD PCP - General Family Practice 03/05/20 documented as of this encounter
--- OUTSIDE RECORDS SUMMARY | 2024-11-01 17:28 | XMS_ITS | Encounter Summary ---
Author Organization [facility] Address [address] [place] [address] Phone Care Team Providers Care Ham Marker Name Role Phone Mary Vazquez MD Primary Care Provider Encounter Details Date Type Department Care Team (Late st Contact Info) Description 10/31/2024 Telephone [facility] Cardiology [address] [facility] 8th [place] [address] [place] [address] Jayesh Betancur MD [address] [facility] [address] [place], [place] [id number] Social History Tobacco Use Types Packs/Day Years [...] on file Legal Sex Female 6:34 AM CREDENTIALING 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 ENTIALING COORDINATOR * Telephone Encounter - Goldie Westbrook RN - 10/31/2024 4:25 PM CST Images from the original note were not included. ENTIALING COORDINATOR documented in this encounter Plan of Treatment Not on file documented as of this encounter Visit Diagnoses Not on filedocumented in this encounter Care Teams Ham Marker Relationship Specialty Start Date End Date Mary Vazquez MD PCP - General Family Practice 03/05/20 documented as of this encounter
--- NOTE | 2024-11-01 17:36 | ED.GENADULT ---
HPI - General Adult General Chief complaint: Shortness of Breath/Dyspnea Stated complaint: Swelling in legs, SHOB,cough Time Seen by Provider: 11/01/24 16:18 History of Present Illness HPI narrative: 49-year-old female presents to the emergency department for evaluation for cough congestion and shortness of breath that is been ongoing for the left 5 days. Patient reports that she does use oxygen with her CPAP but has been having to use the oxygen during the day for the last few days as well. Patient reports she has had some worsening lower extremity edema. Related Data Home Medications ?Medication ?Instructions ?Recorded ?Confirmed ?Last Taken ?Type hydroxychloroquine 200 mg tablet 200 mg PO BID 07/17/19 09/27/24 08/07/24 08:00 History cyanocobalamin (vitamin B-12) 1,000 mcg PO DAILY 03/18/21 09/27/24 08/07/24 History 1,000 mcg tablet (Vitamin B-12) rosuvastatin 10 mg tablet 10 mg PO QHS 09/27/24 09/27/24 Unknown History valsartan 80 mg tablet 80 mg PO DAILY 09/27/24 09/27/24 Unknown History Allergies Allergy/AdvReac Type Severity Reaction Status Date / Time Penicillins AdvReac Mild Rash Verified 11/01/24 15:59 Sulfa (Sulfonamide AdvReac Mild Rash Verified 11/01/24 15:59 Antibiotics) Review of Systems Review of Systems: All systems reviewed & are unremarkable except as noted in HPI and below PMFSH Past Medical History Medical History Chronic venous insufficiency of lower extremity Morbid obesity (Unknown) BMI 47 on 11/01/2024 Restrictive lung disease secondary to obesity Noted to be severe on PFTs from 2015 Moderate tricuspid regurgitation Diastolic heart failure Chronic hypercapnic respiratory failure Lymphedema of both lower extremities Port-A-Cath in place (~2018) Essential (primary) hypertension (Unknown) SLE (systemic lupus erythematosus) (Unknown) STAS (obstructive sleep apnea) Polysomnogram 06/2024 demonstrated moderate obstructive sleep apnea with recommended BiPAP of 18/8 with 3 L of bleed in O2 Malignant melanoma of upper back (~05/2019) Surgical History Surgical History History of removal of Port-a-Cath 2020 [place] teeth removed (~1989) Hx of section (~2000) History of skin surgery melanoma - 06/22/2019 Family History Family History Father Hypertension Sibling Lupus Social History Social History Social History: Patient lives at home with her parents. She works for [employer]. She has 1 daughter who was in her 20. She ambulates without assistance. She is a lifelong nonsmoker. She occasionally drinks alcohol once every couple months. She denies illicit substance use. Code status: Full code Surrogate decision maker: Daughter Smoking status: Never smoker Second hand tobacco smoke exposure: No Alcohol intake: current Alcohol use details: Just every once in awhile Substance use: never Substance use type: does not use Do You Feel Safe in your Home?: Yes Lack of Transportation: No Lack of Food: Never True Current Housing: I Have Housing Concerned About Future Housing: No Difficulty Paying Gas/Electric Bills: YES Difficulty Paying for Meds: No Currently Unemployed: No Education: Associate Degree Difficulty w/ Childcare or Family Care: No Living arrangements: with family Gender identity (if verbalized by the patient): Female Sexual Orientation (if Verbalized by the Patient): Straight or Heterosexual Spiritual care concerns: No Exam Narrative: APPEARANCE: Ill-appearing HEAD: normocephalic, atraumatic. EYES: PERRLA/EOMI, conjunctivae clear. NOSE: Normal no drainage EARS:TMS clear with good light reflex. THROAT: Pharynx clear, no exudate. NECK: Supple. No adenopathy, no masses. RESPIRATORY: Airway patent, respirations nonlabored. Clear to auscultation bilaterally, no rales, rhonchi, wheezing. CARDIOVASCULAR: Regular rate and rhythm without murmurs rubs or gallops. ABDOMINAL: Soft, nontender, nondistended, normal bowel sounds MUSCULOSKELETAL: Moves all extremities. Strength/ROM intact, No edema, No calf tenderness. NEURO: Alert. Cranial nerves II through XII intact. Grossly intact SKIN: Warm, dry. Normal Color Course Vital Signs Vital signs: Vital Signs Temperature 98.1 F 11/01/24 16:03 Pulse Rate 107 H 11/01/24 16:03 Respiratory Rate 20 11/01/24 16:03 Blood Pressure 99/56 L 11/01/24 16:03 Pulse Oximetry 91 11/01/24 16:03 Oxygen Delivery Room Air 11/01/24 16:03 Temperature 98.1 F 11/01/24 16:03 Pulse Rate 94 11/01/24 18:02 Respiratory Rate 28 H 11/01/24 18:02 Blood Pressure 121/69 11/01/24 17:26 Pulse Oximetry 97 11/01/24 17:26 Oxygen Delivery Nasal Cannula 11/01/24 17:16 Oxygen Flow Rate 2 11/01/24 17:16 Medical Decision Making MDM Narrative Medical decision making narrative: 49-year-old female presents emergency department for evaluation for worsening shortness of breath. Patient does have oxygen that she wears with her CPAP at nighttime but is not typically on O2 during the day. Patient reports he has had increased cough congestion and shortness of breath over the last 5 days. Patient did have a pulse ox of 82% on room air but is saturating well on 2 L. Patient is currently afebrile with no leukocytosis and hemoglobin of 10.5. INR is 1.1. Patient does have an elevated potassium of 5.7. Creatinine is 1.17. Patient's BNP was 1090. Chest x-ray was concerning for pneumonia. Patient does have penicillin allergy. Patient was started on Levaquin. Patient was started on glucose insulin, Lokelma, 10 mg nebulized albuterol and admitted to [facility]. Differential Diagnosis Differential Diagnosis: COVID, RSV, influenza, pneumonia, hyperkalemia, CHF Vital Signs Vital Signs: Vital Signs Temperature 98.1 F 11/01/24 16:03 Pulse Rate 107 H 11/01/24 16:03 Respiratory Rate 20 11/01/24 16:03 Blood Pressure 99/56 L 11/01/24 16:03 Pulse Oximetry 91 11/01/24 16:03 Oxygen Delivery Room Air 11/01/24 16:03 Temperature 98.1 F 11/01/24 16:03 Pulse Rate 94 11/01/24 18:02 Respiratory Rate 28 H 11/01/24 18:02 Blood Pressure 121/69 11/01/24 17:26 Pulse Oximetry 97 11/01/24 17:26 Oxygen Delivery Nasal Cannula 11/01/24 17:16 Oxygen Flow Rate 2 11/01/24 17:16 Lab Data Lab results reviewed: Yes I reviewed the patient's lab results. 11/01/24 16:28 11/01/24 16:28 Labs: Lab Results 11/01/24 11/01/24 Range/Units 16:28 17:30 WBC 5.5 (4.5-10.0) K/mm3 RBC 4.08 L (4.2-5.4) M/mm3 Hgb 10.5 L (12.0-15.0) g/dL Hct 34.8 L (37.0-47.0) % MCV 85.3 (80-100) fl MCH 25.7 L (26-34) pg MCHC 30.2 L (32-36) g/dl RDW 21.8 H (11.5-14.5) % Plt Count 296 D (150-375) k/mm3 MPV 11.1 H (7.4-10.4) fl Immature Gran % (Auto) 3.2 H (0-0.5) % Neut % (Auto) 69.5 (45.5-73.1) % Lymph % (Auto) 12.5 L (18.3-44.2) % [place] % (Auto) 11.2 H (2.6-8.5) % Eos % (Auto) 2.9 (0-4.4) % Baso % (Auto) 0.7 (0.2-1.2) % Lymph # (Auto) 0.69 L (0.9-3.2) K/mm3 [place] # (Auto) 0.6 (0.1-0.6) K/mm3 Eos # (Auto) 0.2 (0-0.3) K/mm3 Baso # (Auto) 0.0 (0.0-0.1) K/mm3 Abs Immat Gran (auto) 0.18 H (0.00-0.031) K/mm3 Absolute Neuts (auto) 3.9 (1.3-6.7) K/mm3 Absolute Nucleated RBC 0.000 (0.0-0.012) K/mm3 Nucleated RBC % 0.0 (0.0-0.2) % PT 14.3 (11.1-14.7) Seconds INR 1.1 APTT 33.7 (22.3-36.8) Seconds Sodium 139 (137-145) mmol/L Potassium 5.7 H (3.4-5.0) mmol/L Chloride 106 (98-107) mmol/L Carbon Dioxide 25 (22-30) mmol/L Anion Gap 8 (4-12) mmol/L BUN 38 H D (7-17) mg/dL Creatinine 1.17 H (0.7-1.0) mg/dL Estim Creat Clear Calc 60 ml/min Estimated GFR 49 L (59 - ) Glucose 96 (65-110) mg/dL Calcium 8.8 (8.4-10.2) mg/dL Total Bilirubin 0.8 (0.2-1.3) mg/dL AST 33 (14-36) U/L ALT 50 H (6-35) U/L Alkaline Phosphatase 379 H (38-126) U/L Troponin I < 0.012 (0.000-0.034) ng/mL NT-Pro-B Natriuret Pep 1090 H (19.9-100) pg/mL Total Protein 8.0 (6.3-8.2) g/dL Albumin 3.3 L (3.5-5.1) g/dL Influenza A (RT-PCR) Negative (Negative) Influenza B (RT-PCR) Negative (Negative) RSV (RT-PCR) Negative (Negative) SARS-CoV-2 RNA (RT-PCR) Negative (Negative) Critical Care Time Critical Care Time Critical Care Time: Yes Total Critical Care Time: 35 Discharge Plan Discharge Clinical Impression: Acute hyperkalemia, Pneumonia, Hypoxia Patient Disposition: Still a Patient Condition: Stable
--- NOTE | 2024-11-01 17:48 | PM.IMHP ---
H&P: HPI History of Present Illness Date/Time: 11/01/24 17:48 Chief Complaint: Shortness of Breath Narrative: 49 y/o F presents here with shortness of breath with PMH of restrictive lung disease secondary to obesity, moderate tricuspid regurgitation, diastolic heart failure, chronic hypercapnic respiratory failure, lymphedema of BLE, chronic venous insufficiency, hypertension, systemic lupus erythematosus, and STAS. The patient presents here from home for further evaluation of shortness of breath and bilateral lower extremity swelling. She initially reports bilateral lower extremity swelling and shortness of breath over the last 5 days. Shortness of breath is accompanied by congestion, rhinorrhea, nonproductive cough. She denies fever, chills, body, nausea, vomiting,chest pain, or diarrhea. Patient is on supplemental O2 at night - 4L NC, does not require O2 during the day. No further complaints. Initial VS at presentation: 98.1? F, HR 107, RR 20, 99/56, and 91% on RA. Patient desatted to 82% on room air. Now 97% on 2L NC. ED workup showed: No leukocytosis, hemoglobin 10.5 (previously 11 on 10/26/2024), normal coags, potassium 5.7, creatinine 1.17 and GFR 49 (previously 1.98 and GFR 27 on 10/26/2024), initial troponin negative, BNP 1090. CXR showed airspace opacities in the right lower lung zone and left mid and lower lung zones consistent with atelectasis versus pneumonia, small right pleural effusion, and cardiomegaly. Initial EKG showed sinus rhythm, rate 86. Review of Systems Review of Systems: All systems reviewed & are unremarkable except as noted in HPI and below [facility] Past Medical History Medical History Chronic venous insufficiency of lower extremity Morbid obesity (Unknown) BMI 47 on 11/01/2024 Restrictive lung disease secondary to obesity Noted to be severe on PFTs from 2015 Moderate tricuspid regurgitation Diastolic heart failure Chronic hypercapnic respiratory failure Lymphedema of both lower extremities Port-A-Cath in place (~2019) Essential (primary) hypertension (Unknown) SLE (systemic lupus erythematosus) (Unknown) STAS (obstructive sleep apnea) Polysomnogram 06/2024 demonstrated moderate obstructive sleep apnea with recommended BiPAP of 18/8 with 3 L of bleed in O2 Malignant melanoma of upper back (~05/2019) Surgical History Surgical History History of removal of Port-a-Cath 2020 [place] teeth removed (~1989) Hx of section (~2000) History of skin surgery melanoma - 06/22/2019 Family History Family History Father Hypertension Sibling Lupus Social History Social History Social History: Patient lives at home with her parents. She works for [employer]. She has 1 daughter who was in her 20. She ambulates without assistance. She is a lifelong nonsmoker. She occasionally drinks alcohol once every couple months. She denies illicit substance use. Code status: Full code Surrogate decision maker: Daughter Smoking status: Never smoker Second hand tobacco smoke exposure: No Alcohol intake: current Drinks per week: 1 Alcohol use details: Just every once in awhile Substance use: never Substance use type: does not use Do You Feel Safe in your Home?: Yes Lack of Transportation: No Lack of Food: Never True Current Housing: I Have Housing Concerned About Future Housing: No Difficulty Paying Gas/Electric Bills: No Difficulty Paying for Meds: No Currently Unemployed: No Education: Associate Degree Difficulty w/ Childcare or Family Care: No Living arrangements: with family Gender identity (if verbalized by the patient): Female Sexual Orientation (if Verbalized by the Patient): Straight or Heterosexual Spiritual care concerns: No Meds Home Medications and Allergies Home Medications ?Medication ?Instructions ?Recorded ?Confirmed ?Type hydroxychloroquine 200 mg tablet 200 mg PO Q12H 07/17/19 11/01/24 History cyanocobalamin (vitamin B-12) 1,000 mcg PO DAILY 03/18/21 11/01/24 History 1,000 mcg tablet (Vitamin B-12) empagliflozin 10 mg tablet 10 mg PO DAILY #90 tabs 08/18/24 11/01/24 Rx (Jardiance) furosemide 20 mg tablet 60 mg (3 x 20 mg) PO BID 30 days 08/18/24 11/01/24 Rx #180 tabs spironolactone 25 mg tablet 25 mg PO QAM 30 days #30 tabs 08/18/24 11/01/24 Rx potassium chloride 20 mEq 20 meq PO DAILY #90 tabs 08/29/24 11/01/24 Rx tablet,extended release rosuvastatin 10 mg tablet 10 mg PO QHS 09/27/24 11/01/24 History valsartan 80 mg tablet 80 mg PO DAILY 09/27/24 11/01/24 History Allergies Allergy/AdvReac Type Severity Reaction Status Date / Time Penicillins AdvReac Mild Rash Verified 11/01/24 15:59 Sulfa (Sulfonamide AdvReac Mild Rash Verified 11/01/24 15:59 Antibiotics) Vital Signs Vital Signs - 24 hr 11/01/24 16:03 11/01/24 16:17 11/01/24 16:17 Temperature 98.1 F Pulse Rate 107 H Respiratory Rate 20 Blood Pressure 99/56 L Pulse Oximetry 91 96 95 Oxygen Delivery Room Air Nasal Cannula Nasal Cannula Oxygen Flow Rate 2 2 11/01/24 16:18 11/01/24 16:18 11/01/24 17:16 Temperature Pulse Rate 97 96 Respiratory Rate 21 H Blood Pressure 102/62 Pulse Oximetry 95 82 L Oxygen Delivery Room Air Oxygen Flow Rate 11/01/24 17:16 11/01/24 17:26 Temperature Pulse Rate 85 Respiratory Rate 16 Blood Pressure 121/69 Pulse Oximetry 95 97 Oxygen Delivery Nasal Cannula Oxygen Flow Rate 2 Exam Const: General: comfortable and no acute distress Other: , female, nontoxic appearance HENMT: Face/Nose/Sinus: Normal nares present Mouth: Yes moist mucous membranes Other: NC in place, tolerating well. Eyes: General: appearance normal, both eyes and all related structures Sclera: sclerae normal Pupils: Equal, round and reactive pupils present EOM: EOMs intact bilaterally Resp: Effort & Inspection: normal respiratory effort Other: Crackles to the bilateral mid lobes and left lower lobe. Absent/diminished in the right lower lobe. No wheezing. Cardio: Rate: regular rate Rhythm: regular rhythm Other: Occasional ectopy, no murmur or rub. GI: Other: Abdomen soft, nondistended, nontender. Skin: General skin exam: normal color and no rashes or lesions noted Wounds: no wounds Neuro: Speech: normal speech Motor exam (neuro): 5/5 motor strength present throughout Sensory Exam: normal sensation Other: A&O x4 Extrem: Other: Trace edema to bilateral lower extremities, symmetric. Nonpitting. Psych: Mental Status: mental status grossly normal Affect: normal affect Other: Fair insight and judgment, very pleasant. H&P: Results Labs Labs: Short CBC 11/01/24 Range/Units 16:28 WBC 5.5 (4.5-10.0) K/mm3 Hgb 10.5 L (12.0-15.0) g/dL Hct 34.8 L (37.0-47.0) % Plt Count 296 D (150-375) k/mm3 BMP 11/01/24 16:28 Sodium 139 Potassium 5.7 H Chloride 106 Carbon Dioxide 25 BUN 38 H D Creatinine 1.17 H Glucose 96 Calcium 8.8 Cardiac Enzymes 11/01/24 Range/Units 16:28 Troponin I < 0.012 (0.000-0.034) ng/mL Liver Function 11/01/24 Range/Units 16:28 Total Bilirubin 0.8 (0.2-1.3) mg/dL AST 33 (14-36) U/L ALT 50 H (6-35) U/L Alkaline Phosphatase 379 H (38-126) U/L Albumin 3.3 L (3.5-5.1) g/dL Assessment and Plan Assessment and plan (1) Pneumonia: Qualifiers: Laterality: bilateral Lung location: unspecified part of lung Pneumonia type: due to unspecified organism Qualified Code(s): J18.9 - Pneumonia, unspecified organism Code(s): J18.9 - Pneumonia, unspecified organism Status: Acute Assessment and Plan: - did not meet SIRS criteria. HR only. Blood cultures obtained in ED, follow. - CXR: 1. Airspace opacities in right lower lung zone and left mid and lower lung zones, consistent with atelectasis versus pneumonia. 2. Small right pleural effusion. 3. Cardiomegaly. - risk factors and complicating factors: chronic hypercapnic respiratory failure, restrictive lung disease secondary to obesity - started on CAP tx: Levaquin on 11/01, elevated PCN and sulfa - Viral PCR negative - sputum culture if obtainable - supportive care - currently requiring supplemental O2 - 2 L NC. Maintain O2 saturation greater than 92%, wean as tolerated. (2) Hyperkalemia: Code(s): E87.5 - Hyperkalemia Status: Acute Assessment and Plan: - K 5.7 -> 5.2 given albuterol, insulin/D50/Lasix/Lokelma in ED, repeat BMP at 10:00 p.m. Repeat BMP showed K of 5.2, repeat insulin/D50, Lasix, Lokelma. Will hold on re administering albuterol, patient became tachycardic in the 120s post nebulizer, exchanged to levalbuterol - hold home p.o. potassium 20 daily - telemetry monitoring (3) CHF (congestive heart failure): Qualifiers: Heart failure chronicity: acute on chronic Heart failure type: diastolic Qualified Code(s): I50.33 - Acute on chronic diastolic (congestive) heart failure Code(s): I50.9 - Heart failure, unspecified Status: Chronic Assessment and Plan: - small right pleural effusion on imaging, otherwise no evidence of pulmonary edema - BNP 1090 - most recent echo (02/2024): Normal systolic function, estimated EF 55-60%. Diastolic function abnormal. Mild AV sclerosis, trace MV regurgitation, [id number] TV regurgitation, no pulmonary hypertension. Update echo - Lasix 20 mg IV in ED, repeat 20 IV for hyperkalemia -> home medication: Lasix 60 mg b.i.d., spironolactone 25 mg daily - monitor I&Os and daily weights - trend renal function (4) Essential (primary) hypertension: Onset Date: Unknown Code(s): I10 - Essential (primary) hypertension Status: Chronic Assessment and Plan: - chronic, currently 121/69 - continue home medications: Valsartan, Lasix, Spironolactone - monitor (5) STAS (obstructive sleep apnea): Code(s): G47.33 - Obstructive sleep apnea (adult) (pediatric) Status: Chronic Assessment and Plan: - continue home CPAP Plan Diet: Heart healthy GI Prophylaxis: Not currently indicated DVT Prophylaxis: Lovenox subQ Lines: Peripheral Code Status: Full code Quality VTE Prophylaxis VTE prophylaxis: pharmacologic ordered Hospitalist MIPS Advance Care Plan I have confirmed that the patient's Advanced Care Plan is present, code status is documented, or surrogate decision maker is listed in patient medical record.: Yes Medication Reconciliation I have utilized all available resources to obtain, update and review the patients current medications (includes all prescriptions, OTC, herbals, cannabis, and nutritional supplements).: Yes
--- OUTSIDE RECORDS SUMMARY | 2024-11-01 17:54 | XMS_ITS | Patient Health Summary ---
Author Organization [facility] Address [address] [address] Care Team Providers Care Director Merit System Name Role Phone Artemio Gaviria MD Primary Care Provider [phone] [facility],non-owned Affiliates and Associated Physician Practices is amultiple site organization consisting of ambulatory clinics and hospital sitesin [place], [place], [place] and [place]. This disclosure is being madepursuant to the Care Everywhere program and may not contain all information available regarding this patient. Last updated 18.[facility] Social History Tobacco Use Types Packs/Day [...] is included. Case Report Dermatopathology Report Case: [id number] Authorizing Provider: Renaldo Muniz MD Collected: 04/22/2022 12:00 AM Ordering Location: [facility] DermPath Lab Received: 04/23/2022 04:41 PM Pathologist: [...] specimen consists of a shave biopsy measuring [id number]. Jar 0. 2 3:29 PM CDT DERMATOPATHOLOGY [...] the Dermatopathology Laboratory at [facility], directed by Dr. Lashanda Parks. These tests need not be, and therefore are not, approved by the [place] Food and Drug Administration. The tests are used for clinical purposes. Billing Codes Specimen Charges Stain Charges 97625 1 2 3:29 PM CDT DERMATOPATHOLOGY LABORATORY Embedded Images 2 3:29 PM CDT DERMATOPATHOLOGY LABORATORY Pathology/Cytolog y TISSUE SPECIMEN FROM SKIN / Unknown 04/22/2022 04/23/2022 4:41 PM CDT Renaldo Muniz MD LAB - PATHOLOGY/CYTO LOGY ORDERABLES DERMATOPATHOLOGY LABORATORY [facility] - Department of Dermatology [facility] Medicine [address] [place] [address], [address] [phone] Care Teams Director Merit System Relationship Specialty Start Date End Date Artemio Gaviria MD [address] [place] [address] PCP - General 06/26/19
--- OUTSIDE RECORDS SUMMARY | 2024-11-01 17:54 | XMS_ITS | Encounter Summary ---
Author Organization [facility] Address [address] [place] [address] Care Team Providers Care Heel Seam Rubber Name Role Phone Artemio Gaviria MD Primary Care Provider [phone] Encounter Details Date Type Department Care Team (Late st Contact Info) Description 06/12/2021 Lab Requisition [facility] DermPath Lab [address] [place] [address] Renaldo [place] [address] Social History Tobacco Use Types Packs/Day Years [...] AM CDT) Case Report Dermatopathology Report Case: [id number] Authorizing Provider: Renaldo Muniz MD Collected: 06/11/2021 12:00 AM Ordering Location: [facility] DermPath Lab Received: 06/12/2021 01:27 PM Pathologist: [...] MELANOCYTIC NEVUS, IRRITATED (D22.5) 10:50 PM [facility] DERMATOPATHOLOGY LABORATORY Clinical History A-C: R/O dys nevus 10:50 PM [facility] DERMATOPATHOLOGY LABORATORY Gross Description Specimen A: [...] 18x5x1 mm. Jar 0. 10:50 PM [facility] DERMATOPATHOLOGY LABORATORY Microscopic Description Specimen A. [...] characteristic determined by the Dermatopathology Laboratory at [facility], directed by Dr. Lashanda Parks. These tests need not be, and therefore are not, approved by the [place] Food and Drug Administration. The tests are used for clinical purposes. Billing Codes Specimen Charges Stain Charges 24090 30773 30726 1 1 1 17901 85163 75106 1 1 1 10:50 PM CDT DERMATOPATHOLOGY [...] - PATHOLOGY/CYTO LOGY ORDERABLES DERMATOPATHOLOGY LABORATORY [facility] - Department of Dermatology [facility] Medicine [address] [place] [address], [address] [phone] documented in this encounter Visit Diagnoses Not on filedocumented in this encounter Care Teams Heel Seam Rubber Relationship Specialty Start Date End Date Artemio Gaviria MD [address] [place] [address] PCP - General 06/26/19 documented as of this encounter
--- OUTSIDE RECORDS SUMMARY | 2024-11-01 17:54 | XMS_ITS | Encounter Summary ---
Author Organization [facility] Address [address] [place] [address] Care Team Providers Care Milled Rice Broker Name Role Phone Artemio Gaviria MD Primary Care Provider [phone] Encounter Details Date Type Department Care Team (Late st Contact Info) Description 04/23/2022 Lab Requisition [facility] DermPath Lab [address] [place] [phone] Renaldo Muniz [place] [address] Social History Tobacco Use Types Packs/Day Years [...] AM CDT) Case Report Dermatopathology Report Case: [id number] Authorizing Provider: Renaldo Muniz MD Collected: 04/22/2022 12:00 AM Ordering Location: [facility] DermPath Lab Received: 04/23/2022 04:41 PM Pathologist: [...] specimen consists of a shave biopsy measuring 6y9x6sm. Jar 0. 2 3:29 PM CDT DERMATOPATHOLOGY [...] purposes. Billing Codes Specimen Charges Stain Charges 24048 1 2 3:29 PM CDT DERMATOPATHOLOGY LABORATORY Embedded Images 2 3:29 PM CDT DERMATOPATHOLOGY LABORATORY Pathology/Cytolog y TISSUE SPECIMEN FROM SKIN / Unknown 04/22/2022 04/23/2022 4:41 PM CDT Renaldo Muniz MD LAB - PATHOLOGY/CYTO LOGY ORDERABLES DERMATOPATHOLOGY LABORATORY [facility] - Department of Dermatology [address], [address] [phone] documented in this encounter Visit Diagnoses Not on filedocumented in this encounter Care Teams Milled Rice Broker Relationship Specialty Start Date End Date Artemio Gaviria MD [address] [place] [phone] PCP - General 06/26/19 documented as of this encounter
--- OUTSIDE RECORDS SUMMARY | 2024-11-01 17:54 | XMS_ITS | Clinical Summary ---
Author Organization [facility] Address [address] [place] [address] [place] [address] Care Team Providers Care Garbage Truck Helper Name Role Phone Mary Vazquez MD Primary Care Provider Allergies Active Allergy Reactions Criticality Noted Date Comments Amoxicillin Rash Medium 02/08/2018 Penicillins Rash Low 02/02/2019 Sulfa (Sulfonamide Antibiotics) Hives,Rash,Unknown High 01/31/2019 Sulfamethoxazole-Trimethoprim Rash Low 2018 Medications triamterene-hyd roCHLOROthiazid e (DYAZIDE) 37.5-25 mg capsule Take 1 Capsule by mouth daily mult au matic operator. Active hydroxychloroqu ine (PLAQUENIL) 200 mg tablet [...] daily per Lupus Dr. Ashly Florez MD @@[facility] Active albuterol sulfate 90 mcg/Actuation inhaler TAKE [...] Comments Blood Pressure 122/78 07/16/2022 3:27 PM FASHION STYLING INTERN Pulse 98 07/16/2022 3:27 PM FASHION STYLING INTERN Temperature 37.2 C (98.9 F) 07/16/2022 3:27 PM FASHION STYLING INTERN Respiratory Rate 16 07/16/2022 3:27 PM FASHION STYLING INTERN Oxygen Saturation 96% 07/16/2022 3:27 PM FASHION STYLING INTERN Inhaled Oxygen Concentration - - Weight 134.9 kg (297 lb 6.4 oz) 07/16/2022 3:27 PM FASHION STYLING INTERN Height 154.9 cm (5' 1 ) 01/15/2022 [...] history exists Insurance [employer] TRADITIONAL Care Teams Garbage Truck Helper Relationship Specialty Start Date End Date Mary Vazquez MD [address] [place] [phone] PCP - General Family Practice 06/30/19
--- OUTSIDE RECORDS SUMMARY | 2024-11-01 17:54 | XMS_ITS | Referral Summary ---
Author Organization [facility] Address [address] [place] [address] Care Team Providers Care Shipmaster Name Role Phone Artemio Gaviria MD Primary Care Provider [phone] Source Comments [facility],non-owned Affiliates and Associated Physician Practices is amultiple site organization consisting of ambulatory clinics and hospital sitesin [place], [place], [place] and [place]. This disclosure is being madepursuant to the Care Everywhere program and may not contain all information available regarding this patient. Last updated 18.[facility] Social History Tobacco Use Types Packs/Day Years Used Date Smoking Tobacco: Never Assessed Sex and Gender Information Value Date Recorded Sex Assigned at Not on file Gender Identity Not on file Sexual Orientation Not on file Plan of Treatment Not on file Care Teams Shipmaster Relationship Specialty Start Date End Date Artemio Gaviria MD [address] [place] [phone] PCP - General 06/26/19
--- OUTSIDE RECORDS SUMMARY | 2024-11-01 17:54 | XMS_ITS | Encounter Summary ---
Author Organization [facility] Address [address] [place] [address] Phone Care Team Providers Care Bridge Carpenter Name Role Phone Mary Vazquez MD Primary Care Provider Encounter Details Date Type Department Care Team (Late st Contact Info) Description 10/31/2024 Telephone [facility] Cardiology [address] [place] [address] [place] [address] Jayesh Betancur MD [address] [place], [place] [phone] Social History Tobacco Use Types Packs/Day Years [...] on file Legal Sex Female 6:[address] Gender Identity Female 01/18/2022 11:01 PM CDT Sexual Orientation Straight 01/18/2022 11 :01 PM CDT documented as of this encounter Miscellaneous Notes * Telephone Encounter - Goldie Westbrook RN - 10/31/2024 4:25 PM CST Images from the original note were not included. T MANAGER * Telephone Encounter - Goldie Westbrook RN - 10/31/2024 4:25 PM CST Images from the original note were not included. T MANAGER documented in this encounter Plan of Treatment Not on file documented as of this encounter Visit Diagnoses Not on filedocumented in this encounter Care Teams Bridge Carpenter Relationship Specialty Start Date End Date Mary Vazquez MD PCP - General Family Practice 03/05/20 documented as of this encounter
--- OUTSIDE RECORDS SUMMARY | 2024-11-01 17:54 | XMS_ITS | Encounter Summary ---
Author Organization [facility] Address [address] [place] [address] Phone Care Team Providers Care Rubber Heel And Sole Press Tender Name Role Phone Mary Vazquez MD Primary [...] on file Legal Sex Female 6:34 AM ENGINE DESIGNER Gender Identity Female 01/18/2022 11:01 PM CDT [...] on filedocumented in this encounter Care Teams Rubber Heel And Sole Press Tender Relationship Specialty Start Date End Date Mary Vazquez MD PCP - General Family Practice 03/05/20 documented as of this encounter
--- OUTSIDE RECORDS SUMMARY | 2024-11-01 17:54 | XMS_ITS | Encounter Summary ---
Author Organization [facility] Address [address] [place] [address] Care Team Providers Care Loss Prevention Research Engineer Name Role Phone Artemio Gaviria MD Primary Care Provider Encounter Details Date Type Department Care Team (Late st Contact Info) Description 10/12/2019 Lab Requisition [facility] DermPath Lab [address] [place] [phone] Renaldo Muniz [place] [address] Social History Tobacco Use Types Packs/Day Years [...] Comments DERMATOPATHOLOGY Routine 10/11/2019 12:0 0 AM FIBERGLASS AUTOBODY REPAIRER documented in this encounter Results * DERMATOPATHOLOGY (10/11/2019 12:00 AM FIBERGLASS AUTOBODY REPAIRER) Case Report Dermatopathology Report Case: [id number] Authorizing Provider: Renaldo Muniz MD Collected: 10/11/2019 12:00 AM Ordering Location: [facility] DermPath Lab Received: 10/12/2019 12:56 PM Pathologist: Reny Clark MD Specimens: A) - Skin, right parapsinal lower back B) - Skin, right mid lat back C) - Skin, right lower back 0 2:11 PM [employer]ERGLASS AUTOBODY REPAIRER DERMATOPATHOLOGY LABORATORY Final Diagnosis Specimen A. SKIN, [...] WITH ARCHITECTURAL DISORDER) (D22.5) 0 2:11 PM [facility] DERMATOPATHOLOGY LABORATORY Clinical History A-C: R/O dysplastic lentinginous nevus 0 2:11 PM [facility] DERMATOPATHOLOGY LABORATORY Gross Description Specimen [...] 10x7x1 mm. Jar 0. 0 2:11 PM [facility] DERMATOPATHOLOGY LABORATORY Microscopic Description Specimen [...] or Compound Dysplastic Nevus) 0 2:11 PM [employer]ER[employer] AUTOBODY REPAIRER DERMATOPATHOLOGY LABORATORY Disclaimer An external and internal positive and negative controls are appropriate for the histochemical, immunohistochemical and immunofluorescence stain(s) in this case (if any), except where stated explicitly. The performance characteristics of the stain(s) cited in this report were developed and its performance characteristic determined by the Dermatopathology Laboratory at [facility], directed by Dr. Lashanda Parks. These tests need not be, and therefore are not, approved by the [place] Food and Drug Administration. The tests are used for clinical purposes. Billing Codes Specimen Charges Stain Charges 27386 23079 69696 1 1 1 0 2:11 PM [employer]ERGLASS AUTOBODY REPAIRER DERMATOPATHOLOGY LABORATORY Embedded Images 0 2:11 PM [employer] AUTOBODY REPAIRER DERMATOPATHOLOGY LABORATORY Pathology/Cytology TISSUE SPECIMEN FROM SKIN / Unknown 10/11/2019 10/12/2019 12:56 PM F[employer]ERGLASS AUTOBODY REPAIRER Miscellaneous samples (specimen) TISSUE SPECIMEN FROM SKIN / Unknown 10/11/2019 10/12/2019 12:56 PM F[employer]ERGLASS AUTOBODY REPAIRER Miscellaneous samples (specimen) TISSUE SPECIMEN FROM SKIN / Unknown 10/11/2019 10/12/2019 12:56 PM FIBERGLASS AUTOBODY REPAIRER Renaldo Muniz MD LAB - PATHOLOGY/CYTO LOGY ORDERABLES DERMATOPATHOLOGY LABORATORY [facility] - Department of Dermatology [facility], 5th Floor Lab B [address] [phone] documented in this encounter Visit Diagnoses Not on filedocumented in this encounter Care Teams Loss Prevention Research Engineer Relationship Specialty Start Date End Date Artemio Gaviria MD [address] [place] [address] PCP - General 06/26/19 documented as of this encounter
--- OUTSIDE RECORDS SUMMARY | 2024-11-01 17:54 | XMS_ITS | Referral Summary ---
Author Organization [facility] Address [address] [place] [address] Care Team Providers Care Lotus Notes Developer Name Role Phone Mary Vazquez MD Primary Care Provider Encounters Date Type Department Care Team Description 10/31/2024 Telephone [facility] Cardiology [address] [place] [address] [place] [address] Jayesh Betancur MD 10/31/2024 Orders Only [facility] Scanning, Provider 10/27/2024 Orders Only [facility] Scanning, Provider 10/25/2024 Telephone [facility] Cardiology [address] [place] [address] [place] [address] Jayesh Betancur MD 10/24/2024 Telephone [facility] Cardiology [address] [place] [address] [place] [address] Jayesh Betancur MD 09/06/2024 9:52 AM EQUIPMENT APPLICATION SPECIALIST - 09/06/2024 11:59 PM EQUIPMENT APPLICATION SPECIALIST Hospital Encounter [address] [address] Chronic diastolic heart failure (HCC); SOB (shortness of breath); Primary hypertension Discharge Disposition: Discharge to home or self care 09/06/2024 9:45 AM EQUIPMENT APPLICATION SPECIALIST Lab [facility] Endocrinology Metabolism and Lipid [address] [place] [address] [place] [address] Chronic diastolic heart failure (HCC); SOB (shortness of breath); Primary hypertension 09/06/2024 9:00 AM EQUIPMENT APPLICATION SPECIALIST Office Visit [facility] Cardiology [address] 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 Was on AZA-stopped due to being stable. Has history of pleural effusion, was following with [employer] Prim[employer] Operator, but needs to establish with a new [...] on file Legal Sex Female 6:34 AM EQUIPMENT APPLICATION SPECIALIST Gender Identity Female 01/18/2022 11:01 PM CDT Sexual Orientation Straight 01/18/2022 11 :01 PM CDT Last Filed Vital Signs Vital Sign Reading Time Taken Comments Blood Pressure 98/68 09/06/2024 8:42 AM EQUIPMENT APPLICATION SPECIALIST Pulse 73 09/06/2024 8:42 AM EQUIPMENT APPLICATION SPECIALIST Temperature 36.5 C (97.7 F) 07/20/2023 7:58 AM EQUIPMENT APPLICATION SPECIALIST Respiratory Rate 14 01/26/2023 8:26 AM CDT Oxygen Saturation 96% 09/06/2024 8:42 AM EQUIPMENT APPLICATION SPECIALIST Inhaled Oxygen Concentration - - Weight 114.1 kg (251 lb 9.6 oz) 09/06/2024 8:42 AM EQUIPMENT APPLICATION SPECIALIST Height 162.6 cm (5' 4 ) 09/06/2024 8:42 AM EQUIPMENT APPLICATION SPECIALIST Body Mass Index 43.19 09/06/2024 8:42 AM EQUIPMENT APPLICATION SPECIALIST Plan of Treatment Not on file Procedures Procedure Name Priority Date/Time Associated Diagnosis Comments SCAN - LABS 10/31/2024 SCAN - LABS 10/27/2024 CBC WITH DIFF, BJ Routine 09/06/2024 9:5 2 AM EQUIPMENT APPLICATION SPECIALIST Chronic diastolic heart failure (HCC) SOB (shortness of breath) Primary hypertension APOLIPOPROTEIN B Routine 09/06/2024 9:52 AM EQUIPMENT APPLICATION SPECIALIST Chronic diastolic heart failure (HCC) SOB (shortness of breath) Primary hypertension PRO B-TYPE NATRIURETIC PEPTIDE Routine 09/06/2024 9:52 AM EQUIPMENT APPLICATION SPECIALIST Chronic diastolic heart failure (HCC) SOB (shortness of breath) Primary hypertension LIPOPROTEIN A (LPA) Routine 09/06/2024 9 :52 AM EQUIPMENT APPLICATION SPECIALIST Chronic diastolic heart failure (HCC) SOB (shortness of breath) Primary hypertension IRON PROFILE W/ IBC Routine 09/06/2024 9 :52 AM EQUIPMENT APPLICATION SPECIALIST Chronic diastolic heart failure (HCC) SOB (shortness of breath) Primary hypertension HEMOGLOBIN A1C Routine 09/06/2024 9:52 AM EQUIPMENT APPLICATION SPECIALIST Chronic diastolic heart failure (HCC) SOB (shortness of breath) Primary hypertension COMPREHENSIVE METABOLIC PANEL Routine 09/06/2024 9:52 AM EQUIPMENT APPLICATION SPECIALIST Chronic diastolic heart failure (HCC) SOB (shortness of breath) Primary hypertension LIPID PANEL Routine 09/06/2024 9:52 AM EQUIPMENT APPLICATION SPECIALIST Chronic diastolic heart failure (HCC) SOB (shortness of breath) Primary hypertension CARDIOLOGY DOCUMENT SCAN Routine 08/15/2024 4:06 PM EQUIPMENT APPLICATION SPECIALIST CARDIOLOGY DOCUMENT SCAN Routine 08/14/2024 4:05 PM EQUIPMENT APPLICATION SPECIALIST CARDIOLOGY DOCUMENT SCAN Routine 08/11/2024 4:03 PM EQUIPMENT APPLICATION SPECIALIST from Last 3 Months Results * SCAN - LABS (10/31/2024) us Provider Scanning Final Result * SCAN - LABS (10/27/2024) us Provider Scanning Final Result * (ABNORMAL) CBC with Diff, BJ (09/06/2024 9:52 AM EQUIPMENT APPLICATION SPECIALIST) [facility] White Blood Count 4.10 3.80 - 9.90 [...] - 3.30 K/cumm [facility] Estill Abs 0.30 0.20 - 0.80 K/cumm [facility] Eos Abs 0.10 0.00 - 0.50 K/cumm [facility] Baso Abs 0.00 0.00 - 0.10 K/cumm [facility] Neut Pct 64.1 % [facility] Imm Gran Pct 0.2 % [facility] Lymph Pct 24.6 % [facility] Estill Pct 8.0 % [facility] Eos Pct 2.4 % [facility] Baso Pct 0.7 % [facility] NRBC Abs 0.00 0.00 - 0.01 K/cumm [facility] 09/06/2024 9:52 AM EQUIPMENT APPLICATION SPECIALIST 09/06/2024 11:49 AM EQUIPMENT APPLICATION SPECIALIST Narrative [facility] C[facility] - 09/07/2024 8:35 AM EQUIPMENT APPLICATION SPECIALIST Testing performed at [facility] - [address] [place] [address]. us Jayesh Betancur MD LAB BLOOD ORDERABLES Final R esult [facility] * Pro B-type natriuretic peptide (09/06/2024 9:52 AM EQUIPMENT APPLICATION SPECIALIST) NT-proBNP <50 <=300 pg/mL Comment: Interpretive Comments: [...] Revised Date: 2018. Blood 09/06/2024 9:52 AM EQUIPMENT APPLICATION SPECIALIST 09/06/2024 11:28 AM EQUIPMENT APPLICATION SPECIALIST us Jayesh Betancur MD LAB BLOOD ORDERABLES Final R esult [id number] Department of Laboratories [place], [place] [id number] * Iron profile w/ IBC (09/06/2024 9:52 AM EQUIPMENT APPLICATION SPECIALIST) Iron 96 30 - 160 ug/dL [facility] TIBC 292 220 - 420 ug/dL [facility] Iron saturation 32.9 11.0 - 52.0 % [facility] Blood 09/06/2024 9:52 AM EQUIPMENT APPLICATION SPECIALIST 09/06/2024 11:49 AM EQUIPMENT APPLICATION SPECIALIST Jayesh Betancur MD LAB BLOOD ORDERABLES Final R esult [facility] * Apolipoprotein B, serum (09/06/2024 9:52 AM EQUIPMENT APPLICATION SPECIALIST) Apolipoprotein B 90 mg/dL [facility] Comment: REFERENCE VALUE Desirable: <90 Above Desirable: 90-99 Borderline high: 100-119 High: 120-139 Very high: > or = 140 Test Performed by: [place] [address] Drafter Electrical: Yusuf Lorenzo Ph.D.; CLIA# [id number] Blood 09/06/2024 9:52 AM EQUIPMENT APPLICATION SPECIALIST 09/06/2024 1:01 PM EQUIPMENT APPLICATION SPECIALIST Jayesh Betancur MD LAB BLOOD ORDERABLES Final R esult [facility] Department [place] [address] [facility] * Lipoprotein a (LPa) (09/06/2024 9:52 AM EQUIPMENT APPLICATION SPECIALIST) Lipoprotein (A) 37.9 <=75.0 nmol/L [facility] [...] its performance characteristics have been determined by [facility]. This assay in units of nmol/L has not been cleared or approved by the FDA, although they are provided by the rock mason and widely accepted as the preferred units for reporting. [facility] is regulated under CLIA as qualified to perform high-complexity testing. Blood 09/06/2024 9:52 AM EQUIPMENT APPLICATION SPECIALIST 09/06/2024 11:49 AM EQUIPMENT APPLICATION SPECIALIST Jayesh Betancur MD LAB BLOOD ORDERABLES Final R esult Performing Organization Address [facility] Co de Phone Number [facility] * (ABNORMAL) Hemoglobin A1c (09/06/2024 9:52 AM EQUIPMENT APPLICATION SPECIALIST) HbA1c 6.1(H) 5.1 - 5.6 % [facility] Comment: HBA1C 5.1 - 5.6 = NORMAL HBA1C 5.7 - 6.4 = PREDIABETES HBA1C >=6.5 = PROVISIONAL DIAGNOSIS OF DIABETES Estimated Average Glucose 128 mg/dL [facility] Blood 09/06/2024 9:52 AM EQUIPMENT APPLICATION SPECIALIST 09/06/2024 11:49 AM EQUIPMENT APPLICATION SPECIALIST Jayesh Betancur MD LAB BLOOD ORDERABLES [facility] Performing Organization Address [facility] Co de Phone Number [facility] * (ABNORMAL) Lipid panel (09/06/2024 9:52 AM EQUIPMENT APPLICATION SPECIALIST) Triglycerides 161(H) <150 mg/dL [facility] Comment: Desirable: <150 mg/dL, fasting <175 mg/dL, non-fasting Persistently elevated triglycerides may enhance atherosclerotic cardiovascular disease. Total Cholesterol 172 <200 mg/dL [facility] Total HDL-C Direct 36(L) >50 mg/dL [facility] Comment: A low HDL-C may be inidcative of metabolic syndrome and enhance atherosclerotic cardiovascular disease risk. Non-HDL cholesterol 136 <220 mg/dL [facility] Friedewald LDL Chol 104 <190 mg/dL [facility] Comment: The Friedewald equation is accurate in most patients when triglycerides are less than 150 mg/dL. Consider the use of non-HDL-C or Apo B to help estimate atherosclerotic cardiovascular diesase risk if triglycerides are elevated. Blood 09/06/2024 9:52 AM EQUIPMENT APPLICATION SPECIALIST 09/06/2024 11:49 AM EQUIPMENT APPLICATION SPECIALIST Narrative [facility] C[facility] - 09/06/2024 1:32 PM EQUIPMENT APPLICATION SPECIALIST Current interpretive data was last updated August 01, 2021. For adults ages 40-79, the ACC/AHA recommends discussing your 10-year atherosclerotic cardiovascular disease risk with your health care provider. https://www.acc.org/ASCVDApp us Jayesh Betancur MD LAB BLOOD ORDERABLES Final R esult [facility] * (ABNORMAL) Comprehensive metabolic panel (09/06/2024 9:52 AM EQUIPMENT APPLICATION SPECIALIST) Total Protein 9.0(H) 6.1 - 8.4 g/dL [...] [facility] Blood 09/06/2024 9:52 AM EQUIPMENT APPLICATION SPECIALIST 09/06/2024 11:49 AM EQUIPMENT APPLICATION SPECIALIST Jayesh Betancur MD LAB BLOOD ORDERABLES Final R esult [facility] * Cardiology Document Scan (08/15/2024 4:06 PM EQUIPMENT APPLICATION SPECIALIST) Anatomical Region Laterality Modality Other Nadira Leyva NP CV CARDIAC SERVICES PROCEDUR ES Final Result * Cardiology Document Scan (08/14/2024 4:05 PM EQUIPMENT APPLICATION SPECIALIST) Anatomical Region Laterality Modality Other Nadira Leyva NP CV CARDIAC SERVICES PROCEDUR ES Final Result * Cardiology Document Scan (08/11/2024 4:03 PM EQUIPMENT APPLICATION SPECIALIST) Anatomical Region Laterality Modality Other Nadira Leyva NP CV CARDIAC SERVICES PROCEDUR ES Final Result from Last 3 Months Insurance [employer] [facility] Care Teams Lotus Notes Developer Relationship Specialty Start Date End Date Mary Vazquez MD PCP - General Family Practice 03/05/20
--- OUTSIDE RECORDS SUMMARY | 2024-11-01 17:54 | XMS_ITS | Clinical Summary ---
Author Organization [facility] Address [address] [place] [address] Care Team Providers Care Server Systems Administrator Name Role Phone Artemio Gaviria MD Primary Care Provider [phone] Source Comments [facility],non-owned Affiliates and Associated Physician Practices is amultiple site organization consisting of ambulatory clinics and hospital sitesin [place], [place], [place] and [place]. This disclosure is being madepursuant to the Care Everywhere program and may not contain all information available regarding this patient. Last updated 18.[facility] [employer] Social History Tobacco Use Types Packs/Day Years [...] age to complete this topic Care Teams Server Systems Administrator Relationship Specialty Start Date End Date Artemio Gaviria MD [address] [place] [address] PCP - General 06/26/19
--- OUTSIDE RECORDS SUMMARY | 2024-11-01 17:54 | XMS_ITS | Encounter Summary ---
Author Organization [facility] Address [address] [facility] [place] [address] Care Team Providers Care Healthcare Liaison Name Role Phone Artemio Gaviria MD Primary Care Provider [phone] Encounter Details Date Type Department Care Team (Late st Contact Info) Description 12/21/2019 Lab Requisition [facility] DermPath Lab [address] [place] [address] [place] [address] Social History Tobacco Use Types Packs/Day Years [...] AM CDT) Case Report Dermatopathology Report Case: [id number] Authorizing Provider: Renaldo Muniz MD Collected: 12/20/2019 12:00 AM Ordering Location: [facility] DermPath Lab Received: 12/21/2019 12:58 PM Pathologist: [...] specimen consists of a shave biopsy measuring [id number]. Jar 0. Specimen B: Received is one formalin filled container labeled with the patient's name and designated left upper back above scar. The specimen consists of a shave biopsy measuring [id number]. Jar 0. Specimen C: Received is one formalin filled container labeled with the patient's name and designated left med upper back above scar. The specimen consists of a shave biopsy measuring [id number]. Jar 0. Specimen D: Received is one formalin filled container. The specimen consists of a shave biopsy measuring 9g7y9mg. Jar 0. 0 2:28 PM CDT DERMATOPATHOLOGY [...] characteristic determined by the Dermatopathology Laboratory at [facility], directed by Dr. Lashanda Parks. These tests need not be, and therefore are not, approved by the [place] Food and Drug Administration. The tests are used for clinical purposes. Billing Codes Specimen Charges Stain Charges 38319 59269 83630 36135 1 1 1 1 0 2:28 PM [...] LAB - PATHOLOGY/CYTO LOGY ORDERABLES DERMATOPATHOLOGY LABORATORY [facility] - Department of Dermatology [address] [place] [address], 5th Floor Lab [address] [phone] documented in this encounter Visit Diagnoses Not on filedocumented in this encounter Care Teams Healthcare Liaison Relationship Specialty Start Date End Date Artemio Gaviria MD [address] [place] [phone] PCP - General 06/26/19 documented as of this encounter
--- OUTSIDE RECORDS SUMMARY | 2024-11-01 17:54 | XMS_ITS | Encounter Summary ---
Author Organization [facility] Address [address] [place] [address] Care Team Providers Care Fur Stretcher Name Role Phone Artemio Gaviria MD Primary Care Provider [phone] Encounter Details Date Type Department Care Team (Late st Contact Info) Description 01/15/2021 Lab Requisition [facility] DermPath Lab [address] [facility] [place] [phone] [place] [address] Social History Tobacco Use Types Packs/Day Years [...] AM CDT) Case Report Dermatopathology Report Case: [id number] Authorizing Provider: Renaldo Munzi MD Collected: 01/14/2021 12:00 AM Ordering Location: [facility] DermPath Lab Received: 01/15/2021 01:48 PM [...] NEVUS WITH ARCHITECTURAL DISORDER) (D22.4) 4:27 PM [facility] DERMATOPATHOLOGY LABORATORY Clinical History A-D: R/O dys nevus. 4:27 PM [facility] DERMATOPATHOLOGY LABORATORY Gross Description Specimen A: Received is one formalin filled container labeled with the patient's name and designated left upper lat back. The specimen consists of a shave biopsy measuring 62k32e8bx. Jar 0. Specimen B: Received is one formalin filled container labeled with the patient's name and designated right lower back. The specimen consists of a shave biopsy measuring 52j6y43gy. Jar 0. Specimen C: Received is one formalin filled container labeled with the patient's name and designated right lower back lat. The specimen consists of a shave biopsy measuring 8g2x1vx. Jar 0. Specimen D: Received is one formalin filled container labeled with the patient's name and designated below right ear. The specimen consists of a shave biopsy measuring 5e0m6uu. Jar 0. 1 4:27 PM [facility] DERMATOPATHOLOGY LABORATORY Microscopic Description Specimen A. [...] determined by the Dermatopathology Laboratory at [facility], directed by Dr. Lashanda Parks. These tests need not be, and therefore are not, approved by the [place] Food and Drug Administration. The tests are used for clinical purposes. Billing Codes Specimen Charges Stain Charges 85295 42796 11959 66883 1 1 1 1 66952 34223 40089 45239 1 1 1 1 1 4:27 PM [...] DERMATOPATHOLOGY LABORATORY [facility] - Department of Dermatology [facility] [address] [place] [address], [address] [phone] documented in this encounter Visit Diagnoses Not on filedocumented in this encounter Care Teams Fur Stretcher Relationship Specialty Start Date End Date Artemio Gaviria MD [address] [place] [phone] PCP - General 06/26/19 documented as of this encounter
--- OUTSIDE RECORDS SUMMARY | 2024-11-01 17:54 | XMS_ITS | Clinical Summary ---
Author Organization 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 Was on AZA-stopped due to being stable. Has history of pleural effusion, was following with Remote Sensing Surveyor, but needs to establish with a new one. Sister has SLE with LN s/p Cytoxan (Mindy Jos) Encounters Date Type Department Care Team Description 10/31/2024 Telephone [facility] Cardiology [facility] Advanced Medicine 8th [place] [address] [place] [address] Jayesh Betancur MD 10/31/2024 Orders Only [facility] Scanning, Provider 10/27/2024 Orders Only [facility] Scanning, Provider 10/25/2024 Telephone [facility] Cardiology [address] [facility] 8th [place] [address] [place] [address] Jayesh Betancur MD 10/24/2024 Telephone [facility] Cardiology [address] [facility] Advanced Medicine 8th [place] [address] [place] [address] Jayesh Betancur MD 09/06/2024 9:52 AM HOLTER SCANNING TECHNICIAN - 09/06/2024 11:59 PM HOLTER SCANNING TECHNICIAN Hospital Encounter [facility] [address] [place] [address] Chronic diastolic heart failure (HCC); SOB (shortness of breath); Primary hypertension Discharge Disposition: Discharge to home or self care 09/06/2024 9:45 AM HOLTER SCANNING TECHNICIAN Lab [facility] Endocrinology Metabolism and Lipid [address] [facility] 8th [place] [address] [place] [address] Chronic diastolic heart failure (HCC); SOB (shortness of breath); Primary hypertension 09/06/2024 9:00 AM HOLTER SCANNING TECHNICIAN Office Visit [facility] Cardiology [address] [facility] 8th [place] [address] [place] [address] Jayesh Betancur MD Chronic diastolic heart failure (HCC) (Primary Dx); SOB (shortness of breath); Primary hypertension 08/21/2024 Orders Only [facility] Cardiology [address] [place] [id number] Nadira Leyva NP from Last 3 Months [...] 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 [place] Level IV + one node N O [...] on file Legal Sex Female 6:34 AM HOLTER SCANNING TECHNICIAN Gender Identity Female 01/18/2022 11:01 PM CDT Sexual Orientation Straight 01/18/2022 11 :01 PM CDT Obstetrics History Last Filed Vital Signs Vital Sign Reading Time Taken Comments Blood Pressure 98/68 09/06/2024 8:42 AM HOLTER SCANNING TECHNICIAN Pulse 73 09/06/2024 8:42 AM HOLTER SCANNING TECHNICIAN Temperature 36.5 C (97.7 F) 07/20/2023 7:58 AM HOLTER SCANNING TECHNICIAN Respiratory Rate 14 01/26/2023 8:26 AM CDT Oxygen Saturation 96% 09/06/2024 8:42 AM HOLTER SCANNING TECHNICIAN Inhaled Oxygen Concentration - - Weight 114.1 kg (251 lb 9.6 oz) 09/06/2024 8:42 AM HOLTER SCANNING TECHNICIAN Height 162.6 cm (5' 4 ) 09/06/2024 8:42 AM HOLTER SCANNING TECHNICIAN Body Mass Index 43.19 09/06/2024 8:42 AM HOLTER SCANNING TECHNICIAN Plan of Treatment Health Maintenance Due Date [...] DIFF, BJ Routine 09/06/2024 9:5 2 AM HOLTER SCANNING TECHNICIAN Chronic diastolic heart failure (HCC) SOB (shortness of breath) Primary hypertension APOLIPOPROTEIN B Routine 09/06/2024 9:52 AM HOLTER SCANNING TECHNICIAN Chronic diastolic heart failure (HCC) SOB (shortness of breath) Primary hypertension PRO B-TYPE NATRIURETIC PEPTIDE Routine 09/06/2024 9:52 AM HOLTER SCANNING TECHNICIAN Chronic diastolic heart failure (HCC) SOB (shortness of breath) Primary hypertension LIPOPROTEIN A (LPA) Routine 09/06/2024 9 :52 AM HOLTER SCANNING TECHNICIAN Chronic diastolic heart failure (HCC) SOB (shortness of breath) Primary hypertension IRON PROFILE W/ IBC Routine 09/06/2024 9 :52 AM HOLTER SCANNING TECHNICIAN Chronic diastolic heart failure (HCC) SOB (shortness of breath) Primary hypertension HEMOGLOBIN A1C Routine 09/06/2024 9:52 AM HOLTER SCANNING TECHNICIAN Chronic diastolic heart failure (HCC) SOB (shortness of breath) Primary hypertension COMPREHENSIVE METABOLIC PANEL Routine 09/06/2024 9:52 AM HOLTER SCANNING TECHNICIAN Chronic diastolic heart failure (HCC) SOB (shortness of breath) Primary hypertension LIPID PANEL Routine 09/06/2024 9:52 AM HOLTER SCANNING TECHNICIAN Chronic diastolic heart failure (HCC) SOB (shortness of breath) Primary hypertension CARDIOLOGY DOCUMENT SCAN Routine 08/15/2024 4:06 PM HOLTER SCANNING TECHNICIAN CARDIOLOGY DOCUMENT SCAN Routine 08/14/2024 4:05 PM HOLTER SCANNING TECHNICIAN CARDIOLOGY DOCUMENT SCAN Routine 08/11/2024 4:03 PM HOLTER SCANNING TECHNICIAN from Last 3 Months Results * SCAN - LABS (10/31/2024) us Provider Scanning Final Result * SCAN - LABS (10/27/2024) us Provider Scanning Final Result * (ABNORMAL) CBC with Diff, BJ (09/06/2024 9:52 AM HOLTER SCANNING TECHNICIAN) White Blood Count 4.10 3.80 - 9.90 K/cumm [facility] Comment: Red Blood Count 6.41(H) 3.90 - 5.20 M/cumm [facility] Hemoglobin 14.9 11.9 - 15.5 g/dL [facility] Hematocrit 51.2(H) 35.6 - 45.5 % [facility] Platelet Count 146(L) 150 - 400 K/cumm [facility] MCV 79.9(L) 81.3 - 96.4 fl [facility] MCH 23.2(L) 27.1 - 33.3 pg [facility] MCHC 29.1(L) 32.3 - 35.7 g/dL [facility] MPV Not Measured 9.1 - 12.3 fl [facility] RDW SD 55.6(H) 35.7 - 48.1 fL [facility] RDW CV 19.9(H) 11.1 - 14.9 % [facility] Neut Abs 2.6 1.5 - 6.5 K/cumm [facility] Imm Gran Abs 0.00 0.00 - 0.10 K/cumm [facility] Lymph Abs 1.00 0.80 - 3.30 K/cumm [facility] Moffat Abs 0.30 0.20 - 0.80 K/cumm [facility] Eos Abs 0.10 0.00 - 0.50 K/cumm [facility] Baso Abs 0.00 0.00 - 0.10 K/cumm [facility] Neut Pct 64.1 % [facility] Imm Gran Pct 0.2 % [facility] Lymph Pct 24.6 % [facility] Moffat Pct 8.0 % [facility] Eos Pct 2.4 % [facility] Baso Pct 0.7 % [facility] NRBC Abs 0.00 0.00 - 0.01 K/cumm [facility] 09/06/2024 9:52 AM HOLTER SCANNING TECHNICIAN 09/06/2024 11:49 AM HOLTER SCANNING TECHNICIAN Narrative [facility] - 09/07/2024 8:35 AM HOLTER SCANNING TECHNICIAN Testing performed at [facility] - [address] [place] [id number]. [place] Jayesh Betancur MD LAB BLOOD ORDERABLES Final R esult [facility] * Pro B-type natriuretic peptide (09/06/2024 9:52 AM HOLTER SCANNING TECHNICIAN) NT-proBNP <50 <=300 pg/mL Comment: Interpretive Comments: [...] Revised Date: 2018. Blood 09/06/2024 9:52 AM HOLTER SCANNING TECHNICIAN 09/06/2024 11:28 AM HOLTER SCANNING TECHNICIAN Jayesh Betancur MD LAB BLOOD ORDERABLES Final R esult Performing Organization Address City/[facility] Co de Phone Number MAREN HERNANDEZ [facility] [place] [address] * Iron profile w/ IBC (09/06/2024 9:52 AM HOLTER SCANNING TECHNICIAN) Iron 96 30 - 160 ug/dL [facility] TIBC 292 220 - 420 ug/dL [facility] Iron saturation 32.9 11.0 - 52.0 % [facility] Blood 09/06/2024 9:52 AM HOLTER SCANNING TECHNICIAN 09/06/2024 11:49 AM HOLTER SCANNING TECHNICIAN Jayesh Betancur MD LAB BLOOD ORDERABLES Final R esult [facility] * Apolipoprotein B, serum (09/06/2024 9:52 AM HOLTER SCANNING TECHNICIAN) Apolipoprotein B 90 mg/dL [facility] Comment: REFERENCE VALUE Desirable: <90 Above Desirable: 90-99 Borderline high: 100-119 High: 120-139 Very high: > or = 140 Test Performed by: [place] [id number] Spa Manager: Yusuf Lorenzo Ph.D.; CLIA# [id number] Blood 09/06/2024 9:52 AM HOLTER SCANNING TECHNICIAN 09/06/2024 1:01 PM HOLTER SCANNING TECHNICIAN Jayesh Betancur MD LAB BLOOD ORDERABLES Final R esult Performing Organization Address City/[facility]/ZIP Co de Phone Number MAREN HERNANDEZ [facility] [place] [address] [place] [facility] * Lipoprotein a (LPa) (09/06/2024 9:52 AM HOLTER SCANNING TECHNICIAN) Lipoprotein (A) 37.9 <=75.0 nmol/L [facility] [...] FDA, although they are provided by the manager communication and widely accepted as the preferred units for reporting. [facility] is regulated under CLIA as qualified to perform high-complexity testing. Blood 09/06/2024 9:52 AM HOLTER SCANNING TECHNICIAN 09/06/2024 11:49 AM HOLTER SCANNING TECHNICIAN Jayesh Betancur MD LAB BLOOD ORDERABLES Final R esult [facility] * (ABNORMAL) Hemoglobin A1c (09/06/2024 9:52 AM HOLTER SCANNING TECHNICIAN) HbA1c 6.1(H) 5.1 - 5.6 % [facility] Comment: HBA1C 5.1 - 5.6 = NORMAL HBA1C 5.7 - 6.4 = PREDIABETES HBA1C >=6.5 = PROVISIONAL DIAGNOSIS OF DIABETES Estimated Average Glucose 128 mg/dL [facility] Blood 09/06/2024 9:52 AM HOLTER SCANNING TECHNICIAN 09/06/2024 11:49 AM HOLTER SCANNING TECHNICIAN Jayesh Betancur MD LAB BLOOD ORDERABLES Final R esult Performing Organization Address [facility] Co de Phone Number [facility] * (ABNORMAL) Lipid panel (09/06/2024 9:52 AM HOLTER SCANNING TECHNICIAN) Triglycerides 161(H) <150 mg/dL [facility] [...] triglycerides are elevated. Blood 09/06/2024 9:52 AM HOLTER SCANNING TECHNICIAN 09/06/2024 11:49 AM HOLTER SCANNING TECHNICIAN Narrative [facility] - 09/06/2024 1:32 PM HOLTER SCANNING TECHNICIAN Current interpretive data was last updated August 01, 2021. For adults ages 40-79, the ACC/AHA recommends discussing your 10-year atherosclerotic cardiovascular disease risk with your health care provider. https://www.acc.org/ASCVDApp Jayesh Betancur MD LAB BLOOD ORDERABLES Final R esult Performing Organization Address City/[facility]/ZIP Co de Phone Number [facility] * (ABNORMAL) Comprehensive metabolic panel (09/06/2024 9:52 AM HOLTER SCANNING TECHNICIAN) Total Protein 9.0(H) 6.1 - 8.4 g/dL [...] [facility] Blood 09/06/2024 9:52 AM HOLTER SCANNING TECHNICIAN 09/06/2024 11:49 AM HOLTER SCANNING TECHNICIAN us Jayesh Betancur MD LAB BLOOD ORDERABLES Final R esult [facility] * Cardiology Document Scan (08/15/2024 4:06 PM HOLTER SCANNING TECHNICIAN) Anatomical Region Laterality Modality Other us Nadira Leyva NP CV CARDIAC SERVICES PROCEDUR ES Final Result * Cardiology Document Scan (08/14/2024 4:05 PM HOLTER SCANNING TECHNICIAN) Anatomical Region Laterality Modality Other Nadira Leyva ASSOCIATE PROFESSOR OF BIBLICAL STUDIES CV CARDIAC SERVICES PROCEDUR ES Final Result * Cardiology Document Scan (08/11/2024 4:03 PM HOLTER SCANNING TECHNICIAN) Anatomical Region Laterality Modality Other Nadira Leyva ASSOCIATE PROFESSOR OF BIBLICAL STUDIES CV CARDIAC SERVICES PROCEDUR ES Final Result from Last 3 Months Insurance [employer] O [facility] Care Teams Wax Ball Knock Out Worker Relationship Specialty Start Date End Date Mary Vazquez MD PCP - General Family Practice 03/05/20
--- OUTSIDE RECORDS SUMMARY | 2024-11-01 17:54 | XMS_ITS | Clinical Summary ---
Author Organization [facility] Address [address] [place] [address] Care Team Providers Care Overhead Garage Door Hanger Name Role Phone Ary Wooten MANAGER PARKING Primary Care Provider Social History Tobacco Use Types Packs/Day [...] complete this topic Insurance MEDICAID Care Teams Overhead Garage Door Hanger Relationship Specialty Start Date End Date Ary Wooten FNP [address] [place] [address] PCP - General NURSE PRACTITIONER 04/04/24
--- OUTSIDE RECORDS SUMMARY | 2024-11-01 17:54 | XMS_ITS | Encounter Summary ---
Author Organization [facility] Address [address] [place] [address] Phone Care Team Providers Care Plant Specialist Name Role Phone Mary Vazquez MD Primary [...] on file Legal Sex Female 6:34 AM GRIDDLE ATTENDANT Gender Identity Female 01/18/2022 11:01 PM CDT [...] on filedocumented in this encounter Care Teams Plant Specialist Relationship Specialty Start Date End Date Mary Vazquez MD PCP - General Family Practice 03/05/20 documented as of this encounter
--- OUTSIDE RECORDS SUMMARY | 2024-11-01 17:54 | XMS_ITS | CONTINUITY OF CARE DOCUMENT ---
Author Name bala mckenna Address Unknown Organization [facility] Address [address] [place] [address] [address] [place] [address] Phone [phone] Care Team Providers Care Bowl Attendant Name Role Phone Darya CONTEH, Adonay Unavailable [phone] Adonay Lackey MD Unavailable [phone] George CONTEH, Mary Unavailable INSURANCE PROVIDERS Payer name Policy type / Coverage type [place] [employer] party ID HE[employer] AND FAMILY SERVICES Medicaid 4 [id number]
[2024-11-01] MEDS: ALBUTEROL SULFATE NEB 2.5 MG/3 ML INH 10 MG INHALATION (17:58)
[2024-11-01] MEDS: DEXTROSE 50% 25 GM/50 ML SYRINGE IV PUSH ×2 (18:50→21:54)
[2024-11-01 18:52] LABS: Influenza A QL RT-PCR Negative (Negative); Influenza B QL RT-PCR Negative (Negative); RSV RNA, RT-PCR Negative (Negative); SARS-CoV-2 RNA PCR Negative (Negative)
[2024-11-01] MEDS: INSULIN HUMAN REGULAR (*BKC) 100 UNITS/ML IV PUSH (18:58)
[2024-11-01] MEDS: FUROSEMIDE INJ 40 MG/4 ML VIAL 20 MG IV PUSH ×2 (18:59→21:47)
[2024-11-01] MEDS: levoFLOXacin 750 MG/D5W 150 ML 750 MG/150 ML BAG 100 MG IVPB (19:20)
[2024-11-01] MEDS: SODIUM ZIRCONIUM CYCLOSILICATE 10 GM POWD.PACK PO ×2 (19:20→21:42)
[2024-11-01 19:39] LABS: Glucose Point of Care 134 mg/dl (65-105)
--- NOTE | 2024-11-01 20:05 | ADMGEN ---
This patient, Mara Us, was admitted to Medical Room 349-01. Patient/family oriented to hospital policies and general routines including ID bracelet, bed and alarms, visiting hours, pain management, procedures, bathroom and other care routines, personal items, smoking policy, room service/diet, and visiting hours. Information on how to activate the Rapid Response Team has been discussed. Patient/Family are encouraged to report perceived risks to care and to ask questions if they do not understand what they are told or what they should do.
--- NOTE | 2024-11-01 20:22 | ECG_ITS ---
Test Date: 2024-11-01 20:37:46 Measurements Intervals [place] Rate: 114 P: 32 KS: 147 QRS: 49 QRSD: 85 T: 73 QT: 314 QTc: 433 Interpretive Statements SINUS TACHYCARDIA NONSPECIFIC T-WAVE ABNORMALITY ABNORMAL RHYTHM ECG Compared to ECG 11/01/2024 17:00:17 T-wave abnormality now present Sinus rhythm no longer present Electronically Signed On 11-02-2024 13:57:28 DOORPERSON by Dani Chu M.D.
[2024-11-01 20:50] LABS: Anion Gap 11 mmol/L (4-12); Blood Urea Nitrogen 39 mg/dL (7-17); Carbon Dioxide 26 mmol/L (22-30); Chloride 104 mmol/L (98-107); Estimated CRCL calculation 67 ml/min; Estimated Glomerular Filt Rate 56; Glucose 100 mg/dL (65-110); Potassium 5.2 mmol/L (3.4-5.0); Sodium 141 mmol/L (137-145)
[2024-11-01] MEDS: guaiFENesin 12 HR 600 MG TABCR PO (20:51)
[2024-11-01] MEDS: ROSUVASTATIN 10 MG TABLET PO (21:48)
[2024-11-01] MEDS: INSULIN HUMAN REGULAR (*BKC) 100 UNITS/ML 10 UNITS IV PUSH (21:54)
[2024-11-01] MEDS: HYDROXYCHLOROQUINE SULFATE 200 MG TABLET PO (22:21)
[2024-11-01] MEDS: WATER FOR IRRIGATION, STERILE 500 ML BOTTLE (22:22)
[2024-11-01 23:21] LABS: Glucose Point of Care 75 mg/dl (65-105)
[2024-11-01 23:43] LABS: Anion Gap 8 mmol/L (4-12); Blood Urea Nitrogen 39 mg/dL (7-17); Calcium 8.8 mg/dL (8.4-10.2); Carbon Dioxide 25 mmol/L (22-30); Chloride 105 mmol/L (98-107); Estimated CRCL calculation 58 ml/min; Estimated Glomerular Filt Rate 48; Glucose 76 mg/dL (65-110); Potassium 4.9 mmol/L (3.4-5.0); Sodium 138 mmol/L (137-145)
[2024-11-02] VITALS (12 sets, daily range): BP systolic 102–113; BP diastolic 45–80; PULSE 63–105; RESP 18–20; TEMP 36.2–36.3; O2SAT 93–100
--- NOTE | 2024-11-02 | ECHO_ITS ---
Patient Info Name: Mara Us Age: 49 years : 1975 Gender: Female Ht: 61 in Wt: 248 lbs BSA: 2.27 m2 HR: 98 bpm BP: 110 / 62 mmHg Technical Quality: Fair Exam Date: 11/02/2024 10:28 AM Exam Location: Echo Lab Patient Status: Inpatient Admit Date: 11/01/2024 Staff Ordering Physician: Deysi Tracy APRN Timber Spotter: Ladi Morris RDCS Attending Provider: Estevan Noriega MD Referring Physician: Rossana ALVES; Exam Type: CA echo doppler color flow Study Info Indications - SOB, BLE edema Complete two-dimensional, color flow and Doppler transthoracic echocardiogram is performed. Summary 1. Complete two-dimensional, color flow and Doppler transthoracic echocardiogram is performed. 2. The left ventricle is normal in size and systolic as well as diastolic function. 3. The right ventricle is normal in size and systolic function. 4. There is no significant valvular disease. Left Ventricle The left ventricle is normal in size and systolic function. The left ventricular ejection fraction is visually estimated to be 60-65%. There is normal diastolic function. Right Ventricle The right ventricle is normal in size and systolic function. Left Atria The left atrium is normal size. Right Atria The right atrium is normal size. Atrial Septum The atrial septum is intact visually and by color Doppler. Aortic Valve The aortic valve opens well. There is no aortic regurgitation. Pulmonic Valve The pulmonic valve is not well visualized. There is no pulmonic valve regurgitation. Mitral Valve The mitral valve is normal. There is no mitral regurgitation. Tricuspid Valve The tricuspid valve is normal. There is mild tricuspid regurgitation. Pericardium/Pleural Pericardium is normal in appearance with no evidence for significant pericardial effusion. Inferior Vena Cava Normal inferior vena cava with <50% collapse upon inspiration consistent with normal right atrial pressure, 10 mmHg. Normal inferior vena cava with <50% collapse upon inspiration consistent with normal right atrial pressure, 10 mmHg. Left Ventricular Outflow Tract Name Value Normal LVOT 2D LVOT Diameter 1.8 cm LVOT Doppler LVOT Peak Gradient 7 mmHg LVOT Mean Gradient 4 mmHg LVOT VTI 26 cm LVOT VTI/AV VTI Ratio 0.7 LVOT Stroke Volume 68 ml LVOT CO 14.5 l/min LVOT CI 6.4 l/min/m2 Pulmonic Valve Name Value Normal PV Doppler PV Peak Gradient 5 mmHg Mitral Valve Name Value Normal MV Doppler MV Decel Meade 362 cm/s2 MV PHT 63 ms MV Area (PHT) 3.5 cm2 4.0-5.0 MV Diastolic Function MV E Peak Velocity 79 cm/s MV A Peak Velocity 64 cm/s MV E/A 1.2 MV Decel Time 218 ms MV Annular TDI MV E/e' (Septal) 7.7 <=8.0 MV E/e' (Lateral) 5.6 <=8.0 MV E/e' (Average) 6.7 Tricuspid Valve Name Value Normal TV Regurgitation Doppler TR Peak Velocity 286 cm/s TR Peak Gradient 33 mmHg Estimated PAP/RSVP RA Pressure 10 mmHg <=5 PA Systolic Pressure 43 mmHg <36 RV Systolic Pressure 43 mmHg <36 Aortic Valve Name Value Normal AV Doppler AV Peak Velocity 177 cm/s AV Peak Gradient 13 mmHg AV Mean Gradient 8 mmHg AV VTI 36 cm AV Area (Cont Eq VTI) 1.9 cm2 >=3.0 AV Area (Cont Eq Evgeny) 1.9 cm2 AV Regurgitation 2D LVOT Area 2.7 cm2 Ventricles Name Value Normal LV Dimensions 2D/MM IVS Diastolic Thickness (2D) 0.9 cm 0.6-1.0 LVID Diastole (2D) 4.9 cm 3.8-5.2 LVIW Diastolic Thickness (2D) 0.9 cm 0.6-0.9 LVID Systole (2D) 3.0 cm 2.2-3.5 LVOT Diameter 1.8 cm LV Mass (2D Cubed) 154.75 g 67.00-162.00 LV Mass Index (2D Cubed) 68 g/m2 43-95 Relative Wall Thickness (2D) 0.35 LV Fractional Shortening/Ejection Fraction 2D/MM LV Fractional Shortening (2D) 39 % 27-45 LV EF (2D Teicholz) 69 % 54-74 LV Diastolic Volume (4C MOD) 100 ml LV EF (4C MOD) 64 % LV Diastolic Volume (2C MOD) 86 ml LV EF (2C MOD) 53 % LV Diastolic Volume (BP MOD) 97 ml 46-106 LV Diastolic Volume Index (BP MOD) 43 ml/m2 29-61 LV Systolic Volume (BP MOD) 39 ml 14-42 LV Systolic Volume Index (BP MOD) 17 ml/m2 8-24 LV EF (BP MOD) 60 % 54-74 LV Diastolic Length (4C) 8.0 cm LV Systolic Length (4C) 6.3 cm LV Stroke Volume (4C MOD) 64 ml Atria Name Value Normal LA Dimensions LA Volume (4C A-L) 37 ml LA Volume (BP A-L) 34 ml RA Dimensions RA Area (4C) 18.0 cm2 <=18.0 Report Signatures
[2024-11-02 01:40] LABS: Glucose Point of Care 118 mg/dl (65-105)
[2024-11-02 07:08] LABS: Anion Gap 7 mmol/L (4-12); Blood Urea Nitrogen 33 mg/dL (7-17); Calcium 8.6 mg/dL (8.4-10.2); Carbon Dioxide 28 mmol/L (22-30); Chloride 104 mmol/L (98-107); Estimated CRCL calculation 67 ml/min; Estimated Glomerular Filt Rate 57; Glucose 100 mg/dL (65-110); Potassium 5.8 mmol/L (3.4-5.0); Sodium 139 mmol/L (137-145)
[2024-11-02 07:12] LABS: Basophils Percent Auto 0.8 % (0.2-1.2); Eosinophils Absolute Auto 0.1 K/mm3 (0-0.3); Eosinophils Percent Auto 2.9 % (0-4.4); Hematocrit 33.9 % (37.0-47.0); Immature Granulocyte Absolute 0.19 K/mm3 (0.00-0.031); Lymphocytes Absolute Auto 0.62 K/mm3 (0.9-3.2); Lymphocytes Percent Auto 12.9 % (18.3-44.2); Mean Corpuscular HGB Conc 29.5 g/dl (32-36); Mean Corpuscular Hemoglobin 25.9 pg (26-34); Mean Corpuscular Volume 87.8 fl (80-100); Mean Platelet Volume 10.9 fl (7.4-10.4); Monocytes Absolute Auto 0.4 K/mm3 (0.1-0.6); Monocytes Percent Auto 8.5 % (2.6-8.5); Neutrophils Absolute Auto 3.4 K/mm3 (1.3-6.7); Neutrophils Percent Auto 70.9 % (45.5-73.1); Platelet Count Result 274 k/mm3 (150-375); Red Blood Count 3.86 M/mm3 (4.2-5.4); Red Cell Distribution Width 21.8 % (11.5-14.5); White Blood Count 4.8 K/mm3 (4.5-10.0)
[2024-11-02 07:38] LABS: Anisocytosis 1+; Hypochromasia 1+; Platelet Estimate Adequate (Adequate); Schistocytes None Seen
[2024-11-02] MEDS: HYDROXYCHLOROQUINE SULFATE 200 MG TABLET PO ×2 (08:40→18:10)
[2024-11-02] MEDS: VALSARTAN 80 MG TABLET PO (08:40)
[2024-11-02] MEDS: CYANOCOBALAMIN 1,000 MCG TABLET 1000 MCG PO (08:40)
[2024-11-02] MEDS: guaiFENesin 12 HR 600 MG TABCR PO ×2 (08:40→20:42)
[2024-11-02] MEDS: EMPAGLIFLOZIN 10 MG TABLET PO (08:40)
[2024-11-02] MEDS: SPIRONOLACTONE 25 MG TABLET PO (08:41)
[2024-11-02] MEDS: FUROSEMIDE 20 MG TABLET 60 MG PO ×2 (08:41→18:11)
[2024-11-02] MEDS: ENOXAPARIN 40 MG/0.4 ML SYRINGE SUB-Q (08:42)
--- NOTE | 2024-11-02 09:29 | P.PNIM_ITS ---
Progress Note: A&P Assessment and Plan (1) Pneumonia: Qualifiers: Laterality: bilateral Lung location: unspecified part of lung Pneumonia type: due to unspecified organism Qualified Code(s): J18.9 - Pneumonia, unspecified organism Code(s): J18.9 - Pneumonia, unspecified organism Status: Acute Assessment and Plan: - did not meet SIRS criteria. HR only. Blood cultures obtained in ED, follow. - CXR: 1. Airspace opacities in right lower lung zone and left mid and lower lung zones, consistent with atelectasis versus pneumonia. 2. Small right pleural effusion. 3. Cardiomegaly. - risk factors and complicating factors: chronic hypercapnic respiratory failure, restrictive lung disease secondary to obesity - started on CAP tx: Levaquin on 11/01, elevated PCN and sulfa - Viral PCR negative - sputum culture if obtainable - supportive care - currently requiring supplemental O2 - 2 L NC. Maintain O2 saturation greater than 92%, wean as tolerated. -contnue cpap. IS. ambulation TID and up to the chair with meals (2) Hyperkalemia: Code(s): E87.5 - Hyperkalemia Status: Acute Assessment and Plan: - K 5.7 -> 5.2 given albuterol, insulin/D50/Lasix/Lokelma in ED, repeat BMP at 10:00 p.m. Repeat BMP showed K of 5.2, repeat insulin/D50, Lasix, Lokelma. Will hold on re administering albuterol, patient became tachycardic in the 120s post nebulizer, exchanged to levalbuterol - hold home p.o. potassium 20 daily - telemetry monitoring 11/02 -low slowly as no ESRD, no cardiac abnormalities and K 5.8 will hold spironolactone, continue furosemide lokelma x 1 today and x1 tomorrow again and recheck continue tele (3) CHF (congestive heart failure): Qualifiers: Heart failure chronicity: acute on chronic Heart failure type: diastolic Qualified Code(s): I50.33 - Acute on chronic diastolic (congestive) heart failure Code(s): I50.9 - Heart failure, unspecified Status: Chronic Assessment and Plan: - small right pleural effusion on imaging, otherwise no evidence of pulmonary edema - BNP 1090 - most recent echo (02/2024): Normal systolic function, estimated EF 55-60%. Diastolic function abnormal. Mild AV sclerosis, trace MV regurgitation, [id number] TV regurgitation, no pulmonary hypertension. Update echo - Lasix 20 mg IV in ED, repeat 20 IV for hyperkalemia -> home medication: Lasix 60 mg b.i.d., spironolactone 25 mg daily - monitor I&Os and daily weights - trend renal function- daily labs ordered (4) Essential (primary) hypertension: Onset Date: Unknown Code(s): I10 - Essential (primary) hypertension Status: Chronic Assessment and Plan: - chronic, currently 121/69 - continue home medications: Valsartan, Lasix, holding Spironolactone - monitor (5) STAS (obstructive sleep apnea): Code(s): G47.33 - Obstructive sleep apnea (adult) (pediatric) Status: Chronic Assessment and Plan: - continue home CPAP Plan Diet: Heart healthy GI Prophylaxis: Not currently indicated DVT Prophylaxis: Lovenox subQ Lines: Peripheral Code Status: Full code Time Spent With Patient Time with patient: Greater than 35 minutes Subjective Date/time seen: 11/02/24 09:29 Interval history: 49 y/o F with PMH of restrictive lung disease secondary to obesity, moderate tricuspid regurgitation, diastolic heart failure, chronic hypercapnic respiratory failure, lymphedema of BLE, chronic venous insufficiency, hypertension, systemic lupus erythematosus, and STAS admitted for SOB. She reports shortness of breath and bilateral lower extremity edema- worsening over the last 5 days. Shortness of breath is accompanied by congestion, rhinorrhea, nonproductive cough. She denies fever, chills, body, nausea, vomiting,chest pain, or diarrhea. Patient is on supplemental O2 at night - 4L NC, does not require O2 during the day. No further complaints. Initial VS at presentation: 98.1? F, HR 107, RR 20, 99/56, and 91% on RA. Patient desatted to 82% on room air. Now 97% on 2L NC. ED workup showed: No leukocytosis, hemoglobin 10.5 (previously 11 on 10/26/2024), normal coags, potassium 5.7, creatinine 1.17 and GFR 49 (previously 1.98 and GFR 27 on 10/26/2024), initial troponin negative, BNP 1090. CXR showed airspace opacities in the right lower lung zone and left mid and lower lung zones consistent with atelectasis versus pneumonia, small right pleural effusion, and cardiomegaly. Initial EKG showed sinus rhythm, rate 86. Pt is seen and examined during rounds. Was getting echo done this am. Denies chest pain or palpitations or any muscle discomfort. She normally wearing Cpap with o2 at 4l at night. Review of Systems Review of Systems: All systems reviewed & are unremarkable except as noted in HPI and below Exam Narrative: trace ble edema. Const: General: comfortable and no acute distress Other: , female, nontoxic appearance HENMT: Face/Nose/Sinus: Normal nares present Mouth: Yes moist mucous membra clay Other: NC in place, tolerating well. Eyes: General: appearance normal, both eyes and all related structures Sclera: sclerae normal Pupils: Equal, round and reactive pupils present EOM: EOMs intact bilaterally Resp: Effort & Inspection: normal respiratory effort Other: Crackles to the bilateral mid lobes and left lower lobe. Absent/diminished in the right lower lobe. No wheezing. Cardio: Rate: regular rate Rhythm: regular rhythm Other: Occasional ectopy, no murmur or rub. GI: Other: Abdomen soft, nondistended, nontender. Skin: General skin exam: normal color and no rashes or lesions noted Wounds: no wounds Neuro: Cranial nerves: Yes Equal, round and reactive pupils present Speech: normal speech Motor exam (neuro): 5/5 motor strength present throughout Sensory Exam: normal sensation Other: A&O x4 Extrem: Other: Trace edema to bilateral lower extremities, symmetric. Nonpitting. Psych: Mental Status: mental status grossly normal Affect: normal affect Other: Fair insight and judgment, very pleasant. Objective Data Vital Signs Vital Signs: Vital Signs - 24 hr 11/01/24 16:03 11/01/24 16:17 11/01/24 16:17 Temperature 98.1 F Pulse Rate 107 H Respiratory Rate 20 Blood Pressure 99/56 L Pulse Oximetry 91 96 95 Oxygen Delivery Room Air Nasal Cannula Nasal Cannula Oxygen Flow Rate 2 2 11/01/24 16:18 11/01/24 16:18 11/01/24 17:16 Temperature Pulse Rate 97 96 Respiratory Rate 21 H Blood Pressure 102/62 Pulse Oximetry 95 82 L Oxygen Delivery Room Air Oxygen Flow Rate 11/01/24 17:16 11/01/24 17:26 11/01/24 18:02 Temperature Pulse Rate 85 94 Respiratory Rate 16 28 H Blood Pressure 121/69 Pulse Oximetry 95 97 Oxygen Delivery Nasal Cannula Oxygen Flow Rate 2 11/01/24 19:12 11/01/24 19:24 11/01/24 19:51 Temperature Pulse Rate 126 H 94 127 H Respiratory Rate 24 H 22 H Blood Pressure 114/74 Pulse Oximetry 97 Oxygen Delivery Oxygen Flow Rate 11/01/24 19:54 11/01/24 20:15 11/01/24 21:04 Temperature 97.5 F L Pulse Rate 122 H 128 H Respiratory Rate 20 Blood Pressure 158/91 H Pulse Oximetry 99 99 Oxygen Delivery Nasal Cannula Oxygen Flow Rate 2 11/01/24 21:43 11/01/24 21:50 11/01/24 21:50 Temperature Pulse Rate 122 H 110 H Respiratory Rate Blood Pressure 106/54 L Pulse Oximetry 99 96 96 Oxygen Delivery Autopap Autopap Oxygen Flow Rate 11/01/24 23:21 11/02/24 00:00 11/02/24 01:39 Temperature Pulse Rate 110 H 96 105 H Respiratory Rate 20 Blood Pressure 93/55 L 102/45 L Pulse Oximetry 96 98 Oxygen Delivery Oxygen Flow Rate 11/02/24 02:45 11/02/24 04:00 11/02/24 05:01 Temperature 97.1 F L Pulse Rate 101 H 87 63 Respiratory Rate 18 Blood Pressure 110/62 Pulse Oximetry 97 95 Oxygen Delivery Autopap Oxygen Flow Rate 11/02/24 08:00 Temperature Pulse Rate Respiratory Rate Blood Pressure Pulse Oximetry 93 Oxygen Delivery Nasal Cannula Oxygen Flow Rate 2 Intake/Output Intake/Output: Intake & Output 10/30/24 10/31/24 11/01/24 11/02/24 23:59 23:59 23:59 23:59 Intake Total 150 200 Output Total 600 1100 Balance -450 -900 Meds/Results Medications: Active Medications Generic Name Dose Route Start Last Admin Trade Name Freq PRN Reason Stop Dose Admin Acetaminophen 650 mg 11/01/24 18:03 Acetaminophen 325 Mg Tablet PO Q6H PRN Mild Pain (1-3) or Fever Benzonatate 100 mg 11/01/24 18:02 Benzonatate 100 Mg Capsule PO TID PRN Cough Cyanocobalamin 1,000 mcg 11/02/24 09:00 11/02/24 08:40 Cyanocobalamin 1,000 Mcg Tablet PO 1,000 mcg DAILY DELROY Administration Dextrose 12.5 gm 11/01/24 17:40 Dextrose 50% 25 Gm/50 Ml Syringe IV PUSH PRN PRN Hypoglycemia Protocol Empagliflozin 10 mg 11/02/24 09:00 11/02/24 08:40 Empagliflozin 10 Mg Tablet PO 10 mg DAILY DELROY Administration Enoxaparin Sodium 40 mg 11/02/24 09:00 11/02/24 08:42 Enoxaparin 40 Mg/0.4 Ml Syringe SUB-Q 40 mg DAILY DELROY Administration Furosemide 60 mg 11/02/24 09:00 11/02/24 08:41 Furosemide 20 Mg Tablet PO 60 mg BID DELROY Administration Glucagon 1 mg 11/01/24 17:40 Glucagon For Inj 1 Mg Vial IM PRN PRN Hypoglycemia Protocol Glucose 15 gm 11/01/24 17:40 Glucose Oral Gel 15 Gm Of Glucse In 37.5 Gm Tube PO PRN PRN Hypoglycemia Protocol Guaifenesin 600 mg 11/01/24 21:00 11/02/24 08:40 Guaifenesin 12 Hr 600 Mg Tabcr PO 600 mg Q12HR DELROY Administration Hydroxychloroquine Sulfate 200 mg 11/01/24 22:15 11/02/24 08:40 Hydroxychloroquine Sulfate 200 Mg Tablet PO 200 mg BIDWM DELROY Administration Levofloxacin/Dextrose 750 mg in 150 mls @ 100 mls/hr 11/02/24 19:00 Levaquin 750 Mg/D5w 150 Ml IVPB Q24H DELROY Dextrose 1,000 mls @ 100 mls/hr 11/01/24 17:40 Dextrose 5% 1,000 Ml IVPB PRN PRN Hypoglycemia Protocol Ipratropium [place] 0.5 mg 11/01/24 20:24 Ipratropium Br 0.02% Inh Soln 0.5 Mg/2.5 Ml Vial INHALATION Q6HRT PRN Shortness Of Breath Levalbuterol HCl 1.25 mg 11/01/24 20:24 Levalbuterol Neb 1.25 Mg/3 Ml INHALATION Q6HRT PRN Shortness Of Breath Or Wheezing Perflutren Lipid Microsphere 0 ml 11/01/24 21:31 Perflutren Lipid Microspheres 1.5 Ml Vial Diluted To 10 Ml Total Volume IV PUSH 11/04/24 21:31 ONCE PRN adequate visualization Protocol Rosuvastatin Calcium 10 mg 11/01/24 21:35 11/01/24 21:48 Rosuvastatin 10 Mg Tablet PO 10 mg QHS DELROY Administration Spironolactone 25 mg 11/02/24 09:00 11/02/24 08:41 Spironolactone 25 Mg Tablet PO 25 mg QAM DELROY Administration Valsartan 80 mg 11/02/24 09:00 11/02/24 08:40 Valsartan 80 Mg Tablet PO 80 mg DAILY DELROY Administration Radiology Results: ITS Impressions Chest X-Ray 11/01/24 16:40 IMPRESSION: 1. Airspace opacities in right lower lung zone and left mid and lower lung zones, consistent with atelectasis versus pneumonia. 2. Small right pleural effusion. 3. Cardiomegaly. Labs Labs: Laboratory Results - last 24 hr 11/01/24 11/01/24 11/01/24 16:28 17:30 19:32 WBC 5.5 RBC 4.08 L Hgb 10.5 L Hct 34.8 L MCV 85.3 MCH 25.7 L MCHC 30.2 L RDW 21.8 H Plt Count 296 D MPV 11.1 H Immature Gran % (Auto) 3.2 H Neut % (Auto) 69.5 Lymph % (Auto) 12.5 L Mckenzie % (Auto) 11.2 H Eos % (Auto) 2.9 Baso % (Auto) 0.7 Lymph # (Auto) 0.69 L [place]ckenzie # (Auto) 0.6 Eos # (Auto) 0.2 Baso # (Auto) 0.0 Abs Immat Gran (auto) 0.18 H Absolute Neuts (auto) 3.9 Absolute Nucleated RBC 0.000 Band Neutrophils % Nucleated RBC % 0.0 Platelet Estimate Hypochromasia Anisocytosis Schistocytes PT 14.3 INR 1.1 APTT 33.7 Sodium 139 Potassium 5.7 H Chloride 106 Carbon Dioxide 25 Anion Gap 8 BUN 38 H D Creatinine 1.17 H Estim Creat Clear Calc 60 Estimated GFR 49 L Glucose 96 POC Capillary Glucose 134 H Calcium 8.8 Total Bilirubin 0.8 AST 33 ALT 50 H Alkaline Phosphatase 379 H Troponin I < 0.012 NT-Pro-B Natriuret Pep 1090 H Total Protein 8.0 Albumin 3.3 L Influenza A (RT-PCR) Negative Influenza B (RT-PCR) Negative RSV (RT-PCR) Negative SARS-CoV-2 RNA (RT-PCR) Negative 11/01/24 11/01/24 11/01/24 20:33 23:11 23:29 WBC RBC Hgb Hct MCV MCH MCHC RDW Plt Count MPV Immature Gran % (Auto) Neut % (Auto) Lymph % (Auto) Mckenzie % (Auto) Eos % (Auto) Baso % (Auto) Lymph # (Auto) Mckenzie # (Auto) Eos # (Auto) Baso # (Auto) Abs Immat Gran (auto) Absolute Neuts (auto) Absolute Nucleated RBC Band Neutrophils % Nucleated RBC % Platelet Estimate Hypochromasia Anisocytosis Schistocytes PT INR APTT Sodium 141 138 Potassium 5.2 H 4.9 Chloride 104 105 Carbon Dioxide 26 25 Anion Gap 11 8 BUN 39 H 39 H Creatinine 1.04 H 1.20 H Estim Creat Clear Calc 67 58 Estimated GFR 56 L 48 L Glucose 100 76 POC Capillary Glucose 75 Calcium 9.0 8.8 Total Bilirubin AST ALT Alkaline Phosphatase Troponin I NT-Pro-B Natriuret Pep Total Protein Albumin Influenza A (RT-PCR) Influenza B (RT-PCR) RSV (RT-PCR) SARS-CoV-2 RNA (RT-PCR) 11/02/24 11/02/24 01:37 06:44 WBC 4.8 RBC 3.86 L Hgb 10.0 L Hct 33.9 L MCV 87.8 MCH 25.9 L MCHC 29.5 L RDW 21.8 H Plt Count 274 MPV 10.9 H Immature Gran % (Auto) 4.0 H Neut % (Auto) 70.9 Lymph % (Auto) 12.9 L [place] % (Auto) 8.5 Eos % (Auto) 2.9 Baso % (Auto) 0.8 Lymph # (Auto) 0.62 L Mck[place] # (Auto) 0.4 Eos # (Auto) 0.1 Baso # (Auto) 0.0 Abs Immat Gran (auto) 0.19 H Absolute Neuts (auto) 3.4 Absolute Nucleated RBC 0.000 Band Neutrophils % Not Reportable Nucleated RBC % 0.0 Platelet Estimate Adequate Hypochromasia 1+ Anisocytosis 1+ Schistocytes None seen PT INR APTT Sodium 139 Potassium 5.8 H Chloride 104 Carbon Dioxide 28 Anion Gap 7 BUN 33 H Creatinine 1.03 H Estim Creat Clear Calc 67 Estimated GFR 57 L Glucose 100 POC Capillary Glucose 118 H Calcium 8.6 Total Bilirubin AST ALT Alkaline Phosphatase Troponin I NT-Pro-B Natriuret Pep Total Protein Albumin Influenza A (RT-PCR) Influenza B (RT-PCR) RSV (RT-PCR) SARS-CoV-2 RNA (RT-PCR) Quality VTE Prophylaxis VTE prophylaxis: pharmacologic ordered
[2024-11-02] MEDS: SODIUM ZIRCONIUM CYCLOSILICATE 10 GM POWD.PACK PO (11:29)
[2024-11-02] MEDS: levoFLOXacin 750 MG/D5W 150 ML 750 MG/150 ML BAG 100 MG IVPB (18:12)
[2024-11-02] MEDS: ROSUVASTATIN 10 MG TABLET PO (20:42)
[2024-11-03] VITALS (12 sets, daily range): BP systolic 92–104; BP diastolic 44–63; PULSE 77–102; RESP 16–18; TEMP 36.3–36.6; O2SAT 92–95
[2024-11-03 05:50] LABS: Hematocrit 35.2 % (37.0-47.0); Hemoglobin 10.3 g/dL (12.0-15.0); Mean Corpuscular HGB Conc 29.3 g/dl (32-36); Mean Corpuscular Hemoglobin 25.4 pg (26-34); Mean Corpuscular Volume 86.7 fl (80-100); Platelet Count Result 242 k/mm3 (150-375); Red Blood Count 4.06 M/mm3 (4.2-5.4); Red Cell Distribution Width 21.1 % (11.5-14.5); White Blood Count 3.8 K/mm3 (4.5-10.0)
[2024-11-03 06:02] LABS: Anion Gap 8 mmol/L (4-12); Blood Urea Nitrogen 25 mg/dL (7-17); Calcium 8.7 mg/dL (8.4-10.2); Carbon Dioxide 30 mmol/L (22-30); Chloride 97 mmol/L (98-107); Estimated CRCL calculation 71 ml/min; Estimated Glomerular Filt Rate 60; Glucose 106 mg/dL (65-110); Potassium 4.8 mmol/L (3.4-5.0); Sodium 135 mmol/L (137-145)
[2024-11-03] MEDS: HYDROXYCHLOROQUINE SULFATE 200 MG TABLET PO ×2 (08:17→16:35)
[2024-11-03] MEDS: EMPAGLIFLOZIN 10 MG TABLET PO (08:17)
[2024-11-03] MEDS: CYANOCOBALAMIN 1,000 MCG TABLET 1000 MCG PO (08:17)
[2024-11-03] MEDS: ENOXAPARIN 40 MG/0.4 ML SYRINGE SUB-Q (08:17)
[2024-11-03] MEDS: VALSARTAN 80 MG TABLET PO (08:18)
[2024-11-03] MEDS: FUROSEMIDE 20 MG TABLET 60 MG PO ×2 (08:18→16:35)
[2024-11-03] MEDS: guaiFENesin 12 HR 600 MG TABCR PO ×2 (08:18→20:44)
[2024-11-03] MEDS: SODIUM ZIRCONIUM CYCLOSILICATE 10 GM POWD.PACK PO (10:45)
--- NOTE | 2024-11-03 13:06 | PM.IMPN ---
Progress Note: A&P Assessment and Plan (1) Pneumonia: Qualifiers: Pneumonia type: due to unspecified organism Laterality: bilateral Lung location: unspecified part of lung Qualified Code(s): J18.9 - Pneumonia, unspecified organism Code(s): J18.9 - Pneumonia, unspecified organism Status: Acute (2) Hyperkalemia: Code(s): E87.5 - Hyperkalemia Status: Acute (3) CHF (congestive heart failure): Qualifiers: Heart failure chronicity: acute on chronic Heart failure type: diastolic Qualified Code(s): I50.33 - Acute on chronic diastolic (congestive) heart failure Code(s): I50.9 - Heart failure, unspecified Status: Chronic (4) Essential (primary) hypertension: Onset Date: Unknown Code(s): I10 - Essential (primary) hypertension Status: Chronic Assessment and Plan: - chronic, currently 121/69 - continue home medications: Valsartan, Lasix, holding Spironolactone - monitor (5) STAS (obstructive sleep apnea): Code(s): G47.33 - Obstructive sleep apnea (adult) (pediatric) Status: Chronic Assessment and Plan: - continue home CPAP Plan This is a 49 y/o F with PMH of restrictive lung disease secondary to obesity, moderate tricuspid regurgitation, diastolic heart failure, chronic hypercapnic respiratory failure, lymphedema of BLE, chronic venous insufficiency, hypertension, systemic lupus erythematosus, and STAS admitted for SOB. She reports shortness of breath and bilateral lower extremity edema- worsening over the last 5 days. Shortness of breath is accompanied by congestion, rhinorrhea, nonproductive cough. She denies fever, chills, body, nausea, vomiting,chest pain, or diarrhea. Patient is on supplemental O2 at night - 4L NC, does not require O2 during the day. No further complaints. Initial VS at presentation: 98.1? F, HR 107, RR 20, 99/56, and 91% on RA. Patient desatted to 82% on room air. Now 97% on 2L NC. ED workup showed: No leukocytosis, hemoglobin 10.5 (previously 11 on 10/26/2024), normal coags, potassium 5.7, creatinine 1.17 and GFR 49 (previously 1.98 and GFR 27 on 10/26/2024), initial troponin negative, BNP 1090. CXR showed airspace opacities in the right lower lung zone and left mid and lower lung zones consistent with atelectasis versus pneumonia, small right pleural effusion, and cardiomegaly. Initial EKG showed sinus rhythm, rate 86. Influenza RSV COVID swab was negative Multifocal pneumonia. Treated with levofloxacin Hyperkalemia recently increased spironolactone dose. This is on hold along with potassium supplement. Restrictive lung disease use reviewed obesity Moderate TR Chronic diastolic heart failure echo 11/02/2024 short normal left ventricular systolic and diastolic function right ventricular normal size in size and function systolic function no significant valvular disease. EF 60-65%. Chronic hypercapnic respiratory failure Lymphedema bilateral lower extremity Chronic venous insufficiency Hypertension Mild chronic anemia Systemic lupus erythematosus Obstructive sleep apnea on CPAP Diet: Heart healthy GI Prophylaxis: Not currently indicated DVT Prophylaxis: Lovenox subQ Lines: Peripheral Code Status: Full code Subjective Date/time seen: 11/03/24 13:06 Interval history: Overall feels good. No cough or shortness of breath. No chest pain Review of Systems Review of Systems: All systems reviewed & are unremarkable except as noted in HPI and below Objective Data Vital Signs Vital Signs: Vital Signs - 24 hr 11/02/24 14:13 11/02/24 16:00 11/02/24 20:00 Temperature 97.2 F L Pulse Rate 68 82 Respiratory Rate 18 Blood Pressure 113/70 Pulse Oximetry 100 97 Oxygen Delivery Nasal Cannula Oxygen Flow Rate 1 Fraction of Inspired Oxygen 11/02/24 20:00 11/02/24 20:44 11/02/24 22:53 Temperature 97.3 F L Pulse Rate 102 H 89 88 Respiratory Rate 18 Blood Pressure 103/80 Pulse Oximetry 97 93 Oxygen Delivery Autopap Oxygen Flow Rate Fraction of Inspired Oxygen 11/02/24 22:53 11/03/24 00:00 11/03/24 02:08 Temperature Pulse Rate 88 88 Respiratory Rate Blood Pressure Pulse Oximetry 93 92 Oxygen Delivery Autopap Autopap Oxygen Flow Rate 2 Fraction of Inspired Oxygen 28 11/03/24 04:00 11/03/24 05:09 11/03/24 08:00 Temperature 97.7 F Pulse Rate 86 77 90 Respiratory Rate 16 16 Blood Pressure 97/51 L Pulse Oximetry 95 92 Oxygen Delivery Nasal Cannula Oxygen Flow Rate 1 Fraction of Inspired Oxygen 11/03/24 08:00 11/03/24 12:00 11/03/24 12:00 Temperature Pulse Rate 89 102 H 102 H Respiratory Rate Blood Pressure Pulse Oximetry Oxygen Delivery Oxygen Flow Rate Fraction of Inspired Oxygen Intake/Output Intake/Output: Intake & Output 10/31/24 11/01/24 11/02/24 11/03/24 23:59 23:59 23:59 23:59 Intake Total 150 2070 350 Output Total 600 3200 1500 Balance -450 -0250 -1154 Meds/Results Medications: Active Medications Generic Name Dose Route Start Last Admin Trade Name Freq PRN Reason Stop Dose Admin Acetaminophen 650 mg 11/01/24 18:03 Acetaminophen 325 Mg Tablet PO Q6H PRN Mild Pain (1-3) or Fever Benzonatate 100 mg 11/01/24 18:02 Benzonatate 100 Mg Capsule PO TID PRN Cough Cyanocobalamin 1,000 mcg 11/02/24 09:00 11/03/24 08:17 Cyanocobalamin 1,000 Mcg Tablet PO 1,000 mcg DAILY DELROY Administration Dextrose 12.5 gm 11/01/24 17:40 Dextrose 50% 25 Gm/50 Ml Syringe IV PUSH PRN PRN Hypoglycemia Protocol Empagliflozin 10 mg 11/02/24 09:00 11/03/24 08:17 Empagliflozin 10 Mg Tablet PO 10 mg DAILY DELROY Administration Enoxaparin Sodium 40 mg 11/02/24 09:00 11/03/24 08:17 Enoxaparin 40 Mg/0.4 Ml Syringe SUB-Q 40 mg DAILY DELROY Administration Furosemide 60 mg 11/02/24 09:00 11/03/24 08:18 Furosemide 20 Mg Tablet PO 60 mg BID DELROY Administration Glucagon 1 mg 11/01/24 17:40 Glucagon For Inj 1 Mg Vial IM PRN PRN Hypoglycemia Protocol Glucose 15 gm 11/01/24 17:40 Glucose Oral Gel 15 Gm Of Glucse In 37.5 Gm Tube PO PRN PRN Hypoglycemia Protocol Guaifenesin 600 mg 11/01/24 21:00 11/03/24 08:18 Guaifenesin 12 Hr 600 Mg Tabcr PO 600 mg Q12HR DELROY Administration Hydroxychloroquine Sulfate 200 mg 11/01/24 22:15 11/03/24 08:17 Hydroxychloroquine Sulfate 200 Mg Tablet PO 200 mg BIDWM DELROY Administration Levofloxacin/Dextrose 750 mg in 150 mls @ 100 mls/hr 11/02/24 19:00 11/02/24 19:42 Levaquin 750 Mg/D5w 150 Ml IVPB Infused Q24H DELROY Infusion Dextrose 1,000 mls @ 100 mls/hr 11/01/24 17:40 Dextrose 5% 1,000 Ml IVPB PRN PRN Hypoglycemia Protocol Ipratropium [place] 0.5 mg 11/01/24 20:24 Ipratropium Br 0.02% Inh Soln 0.5 Mg/2.5 Ml Vial INHALATION Q6HRT PRN Shortness Of Breath Levalbuterol HCl 1.25 mg 11/01/24 20:24 Levalbuterol Neb 1.25 Mg/3 Ml INHALATION Q6HRT PRN Shortness Of Breath Or Wheezing Perflutren Lipid Microsphere 0 ml 11/01/24 21:31 Perflutren Lipid Microspheres 1.5 Ml Vial Diluted To 10 Ml Total Volume IV PUSH 11/04/24 21:31 ONCE PRN adequate visualization Protocol Rosuvastatin Calcium 10 mg 11/01/24 21:35 11/02/24 20:42 Rosuvastatin 10 Mg Tablet PO 10 mg QHS DELROY Administration Valsartan 80 mg 11/02/24 09:00 11/03/24 08:18 Valsartan 80 Mg Tablet PO 80 mg DAILY DELROY Administration Radiology Results: ITS Impressions Chest X-Ray 11/01/24 16:40 IMPRESSION: 1. Airspace opacities in right lower lung zone and left mid and lower lung zones, consistent with atelectasis versus pneumonia. 2. Small right pleural effusion. 3. Cardiomegaly. Labs Labs: Laboratory Results - last 24 hr 11/03/24 05:43 WBC 3.8 L RBC 4.06 L Hgb 10.3 L Hct 35.2 L MCV 86.7 MCH 25.4 L MCHC 29.3 L RDW 21.1 H Plt Count 242 MPV 10.0 Sodium 135 L Potassium 4.8 Chloride 97 L Carbon Dioxide 30 Anion Gap 8 BUN 25 H Creatinine 0.98 Estim Creat Clear Calc 71 Estimated GFR 60 Glucose 106 Calcium 8.7
[2024-11-03] MEDS: levoFLOXacin 750 MG/D5W 150 ML 750 MG/150 ML BAG 100 MG IVPB (18:14)
[2024-11-03] MEDS: ROSUVASTATIN 10 MG TABLET PO (20:44)
[2024-11-04] VITALS (13 sets, daily range): BP systolic 98–105; BP diastolic 58–66; PULSE 84–111; RESP 16–18; TEMP 36.1–36.6; O2SAT 92–99
[2024-11-04 06:43] LABS: Hemoglobin 11.2 g/dL (12.0-15.0); Mean Corpuscular HGB Conc 29.5 g/dl (32-36); Mean Corpuscular Hemoglobin 25.5 pg (26-34); Mean Corpuscular Volume 86.6 fl (80-100); Mean Platelet Volume 10.8 fl (7.4-10.4); Platelet Count Result 323 k/mm3 (150-375); Red Blood Count 4.39 M/mm3 (4.2-5.4); Red Cell Distribution Width 20.5 % (11.5-14.5); White Blood Count 4.8 K/mm3 (4.5-10.0)
[2024-11-04 07:01] LABS: Anion Gap 7 mmol/L (4-12); Blood Urea Nitrogen 33 mg/dL (7-17); Calcium 9.2 mg/dL (8.4-10.2); Carbon Dioxide 35 mmol/L (22-30); Chloride 95 mmol/L (98-107); Estimated CRCL calculation 55 ml/min; Estimated Glomerular Filt Rate 44; Glucose 104 mg/dL (65-110); Sodium 137 mmol/L (137-145)
[2024-11-04] MEDS: guaiFENesin 12 HR 600 MG TABCR PO ×2 (08:33→21:13)
[2024-11-04] MEDS: ENOXAPARIN 40 MG/0.4 ML SYRINGE SUB-Q (08:33)
[2024-11-04] MEDS: CYANOCOBALAMIN 1,000 MCG TABLET 1000 MCG PO (08:33)
[2024-11-04] MEDS: FUROSEMIDE 20 MG TABLET 60 MG PO ×2 (08:33→17:04)
[2024-11-04] MEDS: HYDROXYCHLOROQUINE SULFATE 200 MG TABLET PO ×2 (08:34→17:04)
[2024-11-04] MEDS: EMPAGLIFLOZIN 10 MG TABLET PO (08:34)
[2024-11-04] MEDS: VALSARTAN 80 MG TABLET PO (08:34)
--- NOTE | 2024-11-04 12:59 | PM.IMPN ---
Progress Note: A&P Assessment and Plan (1) Pneumonia: Qualifiers: Pneumonia type: due to unspecified organism Laterality: bilateral Lung location: unspecified part of lung Qualified Code(s): J18.9 - Pneumonia, unspecified organism Code(s): J18.9 - Pneumonia, unspecified organism Status: Acute (2) Hyperkalemia: Code(s): E87.5 - Hyperkalemia Status: Acute (3) CHF (congestive heart failure): Qualifiers: Heart failure chronicity: acute on chronic Heart failure type: diastolic Qualified Code(s): I50.33 - Acute on chronic diastolic (congestive) heart failure Code(s): I50.9 - Heart failure, unspecified Status: Chronic (4) Essential (primary) hypertension: Onset Date: Unknown Code(s): I10 - Essential (primary) hypertension Status: Chronic (5) STAS (obstructive sleep apnea): Code(s): G47.33 - Obstructive sleep apnea (adult) (pediatric) Status: Chronic Plan This is a 49 y/o F with PMH of restrictive lung disease secondary to obesity, moderate tricuspid regurgitation, diastolic heart failure, chronic hypercapnic respiratory failure, lymphedema of BLE, chronic venous insufficiency, hypertension, systemic lupus erythematosus, and STAS admitted for SOB. She reports shortness of breath and bilateral lower extremity edema- worsening over the last 5 days. Shortness of breath is accompanied by congestion, rhinorrhea, nonproductive cough. She denies fever, chills, body, nausea, vomiting,chest pain, or diarrhea. Patient is on supplemental O2 at night - 4L NC, does not require O2 during the day. No further complaints. Initial VS at presentation: 98.1? F, HR 107, RR 20, 99/56, and 91% on RA. Patient desatted to 82% on room air. Now 97% on 2L NC. ED workup showed: No leukocytosis, hemoglobin 10.5 (previously 11 on 10/26/2024), normal coags, potassium 5.7, creatinine 1.17 and GFR 49 (previously 1.98 and GFR 27 on 10/26/2024), initial troponin negative, BNP 1090. CXR showed airspace opacities in the right lower lung zone and left mid and lower lung zones consistent with atelectasis versus pneumonia, small right pleural effusion, and cardiomegaly. Initial EKG showed sinus rhythm, rate 86. Influenza RSV COVID swab was negative Multifocal pneumonia. Treated with levofloxacin. Still hypoxic needing oxygen supplementation. Recheck chest x-ray today Hyperkalemia recently increased spironolactone dose. This is on hold along with potassium supplement. Restrictive lung disease use reviewed obesity Moderate TR Chronic diastolic heart failure echo 11/02/2024 short normal left ventricular systolic and diastolic function right ventricular normal size in size and function systolic function no significant valvular disease. EF 60-65%. Chronic hypercapnic respiratory failure Lymphedema bilateral lower extremity Chronic venous insufficiency Hypertension Mild chronic anemia Systemic lupus erythematosus Obstructive sleep apnea on CPAP Diet: Heart healthy GI Prophylaxis: Not currently indicated DVT Prophylaxis: Lovenox subQ Lines: Peripheral Code Status: Full code Subjective Date/time seen: 11/04/24 12:59 Interval history: no overnight events, no sob, chest pain. patient desaturates when ambulate needing oxygen at rest of 1 and with activity at 3 Review of Systems Review of Systems: All systems reviewed & are unremarkable except as noted in HPI and below Exam Narrative: APPEARANCE: Well-appearing 90 acute distress HEAD: normocephalic, atraumatic. EYES: PERRLA/EOMI, conjunctivae clear. NECK: Supple. No adenopathy, no masses. RESPIRATORY: Airway patent, respirations nonlabored. Clear to auscultation bilaterally, no rales, rhonchi, wheezing. CARDIOVASCULAR: Regular rate and rhythm without murmurs rubs or gallops. ABDOMINAL: Soft, nontender, nondistended, normal bowel sounds MUSCULOSKELETAL: Moves all extremities. Strength/ROM intact, No edema, No calf tenderness. NEURO: Alert. Cranial nerves II through XII intact. Grossly intact SKIN: Warm, dry. Normal Color Objective Data Vital Signs Vital Signs: Vital Signs - 24 hr 11/03/24 14:00 11/03/24 14:33 11/03/24 16:00 Temperature 98 F Pulse Rate 96 87 Respiratory Rate 18 Blood Pressure 92/63 L 98/59 L Pulse Oximetry 95 Oxygen Delivery Oxygen Flow Rate Fraction of Inspired Oxygen 11/03/24 20:00 11/03/24 20:00 11/03/24 21:07 Temperature 97.4 F L Pulse Rate 83 90 Respiratory Rate 16 Blood Pressure 104/44 L Pulse Oximetry 94 95 Oxygen Delivery Nasal Cannula Oxygen Flow Rate 1 Fraction of Inspired Oxygen 11/03/24 22:00 11/04/24 00:00 11/04/24 00:05 Temperature Pulse Rate 90 111 H Respiratory Rate Blood Pressure Pulse Oximetry 93 93 Oxygen Delivery Nasal Cannula Autopap Oxygen Flow Rate 2 Fraction of Inspired Oxygen 28 11/04/24 02:52 11/04/24 04:00 11/04/24 06:00 Temperature 97.3 F L Pulse Rate 98 84 95 Respiratory Rate 16 Blood Pressure 101/66 Pulse Oximetry 94 Oxygen Delivery Autopap Oxygen Flow Rate Fraction of Inspired Oxygen 11/04/24 08:00 11/04/24 08:00 11/04/24 12:00 Temperature Pulse Rate 92 98 101 H Respiratory Rate 16 Blood Pressure Pulse Oximetry 94 Oxygen Delivery Nasal Cannula Oxygen Flow Rate 1 Fraction of Inspired Oxygen Intake/Output Intake/Output: Intake & Output 11/01/24 11/02/24 11/03/24 11/04/24 23:59 23:59 23:59 23:59 Intake Total 150 2070 1220 840 Output Total 600 3200 2400 1100 [facility] -450 -1130 -1180 -260 Meds/Results Medications: Active Medications Generic Name Dose Route Start Last Admin Trade Name Freq PRN Reason Stop Dose Admin Acetaminophen 650 mg 11/01/24 18:03 Acetaminophen 325 Mg Tablet PO Q6H PRN Mild Pain (1-3) or Fever Benzonatate 100 mg 11/01/24 18:02 Benzonatate 100 Mg Capsule PO TID PRN Cough Cyanocobalamin 1,000 mcg 11/02/24 09:00 11/04/24 08:33 Cyanocobalamin 1,000 Mcg Tablet PO 1,000 mcg DAILY DELROY Administration Dextrose 12.5 gm 11/01/24 17:40 Dextrose 50% 25 Gm/50 Ml Syringe IV PUSH PRN PRN Hypoglycemia Protocol Empagliflozin 10 mg 11/02/24 09:00 11/04/24 08:34 Empagliflozin 10 Mg Tablet PO 10 mg DAILY DELROY Administration Enoxaparin Sodium 40 mg 11/02/24 09:00 11/04/24 08:33 Enoxaparin 40 Mg/0.4 Ml Syringe SUB-Q 40 mg DAILY DELROY Administration Furosemide 60 mg 11/02/24 09:00 11/04/24 08:33 Furosemide 20 Mg Tablet PO 60 mg BID DELROY Administration Glucagon 1 mg 11/01/24 17:40 Glucagon For Inj 1 Mg Vial IM PRN PRN Hypoglycemia Protocol Glucose 15 gm 11/01/24 17:40 Glucose Oral Gel 15 Gm Of Glucse In 37.5 Gm Tube PO PRN PRN Hypoglycemia Protocol Guaifenesin 600 mg 11/01/24 21:00 11/04/24 08:33 Guaifenesin 12 Hr 600 Mg Tabcr PO 600 mg Q12HR DELROY Administration Hydroxychloroquine Sulfate 200 mg 11/01/24 22:15 11/04/24 08:34 Hydroxychloroquine Sulfate 200 Mg Tablet PO 200 mg BIDWM DELROY Administration Levofloxacin/Dextrose 750 mg in 150 mls @ 100 mls/hr 11/02/24 19:00 11/03/24 19:44 Levaquin 750 Mg/D5w 150 Ml IVPB Infused Q24H DELROY Infusion Dextrose 1,000 mls @ 100 mls/hr 11/01/24 17:40 Dextrose 5% 1,000 Ml IVPB PRN PRN Hypoglycemia Protocol Ipratropium [place] 0.5 mg 11/01/24 20:24 Ipratropium Br 0.02% Inh Soln 0.5 Mg/2.5 Ml Vial INHALATION Q6HRT PRN Shortness Of Breath Levalbuterol HCl 1.25 mg 11/01/24 20:24 Levalbuterol Neb 1.25 Mg/3 Ml INHALATION Q6HRT PRN Shortness Of Breath Or Wheezing Perflutren Lipid Microsphere 0 ml 11/01/24 21:31 Perflutren Lipid Microspheres 1.5 Ml Vial Diluted To 10 Ml Total Volume IV PUSH 11/04/24 21:31 ONCE PRN adequate visualization Protocol Rosuvastatin Calcium 10 mg 11/01/24 21:35 11/03/24 20:44 Rosuvastatin 10 Mg Tablet PO 10 mg QHS DELROY Administration Valsartan 80 mg 11/02/24 09:00 11/04/24 08:34 Valsartan 80 Mg Tablet PO 80 mg DAILY DELROY Administration Radiology Results: ITS Impressions Chest X-Ray 11/01/24 16:40 IMPRESSION: 1. Airspace opacities in right lower lung zone and left mid and lower lung zones, consistent with atelectasis versus pneumonia. 2. Small right pleural effusion. 3. Cardiomegaly. Labs Labs: Laboratory Results - last 24 hr 11/04/24 06:29 WBC 4.8 RBC 4.39 Hgb 11.2 L Hct 38.0 MCV 86.6 MCH 25.5 L MCHC 29.5 L RDW 20.5 H Plt Count 323 MPV 10.8 H Sodium 137 Potassium 5.0 Chloride 95 L Carbon Dioxide 35 H Anion Gap 7 BUN 33 H Creatinine 1.29 H Estim Creat Clear Calc 55 Estimated GFR 44 L Glucose 104 Calcium 9.2
[2024-11-04] MEDS: levoFLOXacin 750 MG/D5W 150 ML 750 MG/150 ML BAG 100 MG IVPB (18:25)
[2024-11-04] MEDS: ROSUVASTATIN 10 MG TABLET PO (21:13)
[2024-11-05] VITALS (11 sets, daily range): BP systolic 100–103; BP diastolic 53–70; PULSE 77–103; RESP 16–18; TEMP 36.1–36.4; O2SAT 90–98
[2024-11-05 05:29] LABS: Hematocrit 34.2 % (37.0-47.0); Hemoglobin 10.3 g/dL (12.0-15.0); Mean Corpuscular HGB Conc 30.1 g/dl (32-36); Mean Corpuscular Hemoglobin 25.8 pg (26-34); Mean Corpuscular Volume 85.7 fl (80-100); Mean Platelet Volume 10.3 fl (7.4-10.4); Platelet Count Result 233 k/mm3 (150-375); Red Blood Count 3.99 M/mm3 (4.2-5.4); White Blood Count 3.8 K/mm3 (4.5-10.0)
[2024-11-05 05:53] LABS: Anion Gap 7 mmol/L (4-12); Blood Urea Nitrogen 46 mg/dL (7-17); Calcium 8.7 mg/dL (8.4-10.2); Carbon Dioxide 32 mmol/L (22-30); Chloride 96 mmol/L (98-107); Estimated CRCL calculation 33 ml/min; Estimated Glomerular Filt Rate 27; Glucose 109 mg/dL (65-110); Potassium 4.7 mmol/L (3.4-5.0); Sodium 135 mmol/L (137-145)
[2024-11-05] MEDS: SODIUM CHLORIDE 0.9% IV 500 ML 125 ML IV CONT (08:34)
[2024-11-05] MEDS: ENOXAPARIN 40 MG/0.4 ML SYRINGE SUB-Q (08:35)
[2024-11-05] MEDS: CYANOCOBALAMIN 1,000 MCG TABLET 1000 MCG PO (08:35)
[2024-11-05] MEDS: HYDROXYCHLOROQUINE SULFATE 200 MG TABLET PO ×2 (08:35→18:36)
[2024-11-05] MEDS: guaiFENesin 12 HR 600 MG TABCR PO ×2 (08:35→20:10)
[2024-11-05] MEDS: EMPAGLIFLOZIN 10 MG TABLET PO (08:35)
--- NOTE | 2024-11-05 13:37 | PM.IMPN ---
Progress Note: A&P Assessment and Plan (1) Pneumonia: Qualifiers: Pneumonia type: due to unspecified organism Laterality: bilateral Lung location: unspecified part of lung Qualified Code(s): J18.9 - Pneumonia, unspecified organism Code(s): J18.9 - Pneumonia, unspecified organism Status: Acute (2) Hyperkalemia: Code(s): E87.5 - Hyperkalemia Status: Acute (3) CHF (congestive heart failure): Qualifiers: Heart failure chronicity: acute on chronic Heart failure type: diastolic Qualified Code(s): I50.33 - Acute on chronic diastolic (congestive) heart failure Code(s): I50.9 - Heart failure, unspecified Status: Chronic (4) Essential (primary) hypertension: Onset Date: Unknown Code(s): I10 - Essential (primary) hypertension Status: Chronic (5) STAS (obstructive sleep apnea): Code(s): G47.33 - Obstructive sleep apnea (adult) (pediatric) Status: Chronic Plan This is a 49 y/o F with PMH of restrictive lung disease secondary to obesity, moderate tricuspid regurgitation, diastolic heart failure, chronic hypercapnic respiratory failure, lymphedema of BLE, chronic venous insufficiency, hypertension, systemic lupus erythematosus, and STAS admitted for SOB. She reports shortness of breath and bilateral lower extremity edema- worsening over the last 5 days. Shortness of breath is accompanied by congestion, rhinorrhea, nonproductive cough. She denies fever, chills, body, nausea, vomiting,chest pain, or diarrhea. Patient is on supplemental O2 at night - 4L NC, does not require O2 during the day. No further complaints. Initial VS at presentation: 98.1? F, HR 107, RR 20, 99/56, and 91% on RA. Patient desatted to 82% on room air. Now 97% on 2L NC. ED workup showed: No leukocytosis, hemoglobin 10.5 (previously 11 on 10/26/2024), normal coags, potassium 5.7, creatinine 1.17 and GFR 49 (previously 1.98 and GFR 27 on 10/26/2024), initial troponin negative, BNP 1090. CXR showed airspace opacities in the right lower lung zone and left mid and lower lung zones consistent with atelectasis versus pneumonia, small right pleural effusion, and cardiomegaly. Initial EKG showed sinus rhythm, rate 86. Influenza RSV COVID swab was negative Multifocal pneumonia. Treated with levofloxacin Hyperkalemia recently increased spironolactone dose. This is on hold along with potassium supplement. Restrictive lung disease use reviewed obesity Moderate TR Chronic diastolic heart failure echo 11/02/2024 short normal left ventricular systolic and diastolic function right ventricular normal size in size and function systolic function no significant valvular disease. EF 60-65%. acute on chronic hypercapnic respiratory failure ctonineus to be an issue. will get ct chest to further evaluate.cxr reviewed. SOURAV: cr bumped up to 1.9 today. will give 500cc fluid. recheck and monitor. renal us Lymphedema bilateral lower extremity Chronic venous insufficiency Hypertension Mild chronic anemia Systemic lupus erythematosus Obstructive sleep apnea on CPAP Diet: Heart healthy GI Prophylaxis: Not currently indicated DVT Prophylaxis: Lovenox subQ Lines: Peripheral Code Status: Full code Subjective Date/time seen: 11/05/24 13:37 Interval history: overnight hypoxia worsened requiring 6l oxygen with cpap. still on oxygen at baseline. labs with elevated creatinine. her cough and sob she reports continues to improve Review of Systems Review of Systems: All systems reviewed & are unremarkable except as noted in HPI and below Exam Narrative: APPEARANCE: Well-appearing not in acute distress HEAD: normocephalic, atraumatic. EYES: PERRLA/EOMI, conjunctivae clear. NECK: Supple. No adenopathy, no masses. RESPIRATORY: Airway patent, respirations nonlabored. Clear to auscultation bilaterally, no rales, rhonchi, wheezing. CARDIOVASCULAR: Regular rate and rhythm without murmurs rubs or gallops. ABDOMINAL: Soft, nontender, nondistended, normal bowel sounds MUSCULOSKELETAL: Moves all extremities. Strength/ROM intact, No edema, No calf tenderness. NEURO: Alert. Cranial nerves II through XII intact. Grossly intact SKIN: Warm, dry. Normal Color Objective Data Vital Signs Vital Signs: Vital Signs - 24 hr 11/04/24 14:00 11/04/24 16:00 11/04/24 20:00 Temperature 97.9 F Pulse Rate 90 87 Respiratory Rate 18 Blood Pressure 98/58 L Pulse Oximetry 99 96 Oxygen Delivery Nasal Cannula Oxygen Flow Rate 1 11/04/24 20:00 11/04/24 22:00 11/04/24 22:23 Temperature 97.0 F L Pulse Rate 86 99 97 Respiratory Rate 18 Blood Pressure 105/62 Pulse Oximetry 96 92 Oxygen Delivery Autopap Oxygen Flow Rate 11/05/24 00:00 11/05/24 01:06 11/05/24 04:00 Temperature Pulse Rate 77 87 91 Respiratory Rate Blood Pressure Pulse Oximetry 90 Oxygen Delivery Autopap Oxygen Flow Rate 11/05/24 04:48 11/05/24 06:00 Temperature 97.1 F L Pulse Rate 90 96 Respiratory Rate 16 Blood Pressure 103/53 L Pulse Oximetry 92 94 Oxygen Delivery Autopap Oxygen Flow Rate Intake/Output Intake/Output: Intake & Output 11/02/24 11/03/24 11/04/24 11/06/24 23:59 23:59 23:59 00:59 Intake Total 2070 1220 1350 840 Output Total 3200 2400 1100 900 Balance -1130 -1180 250 -60 Meds/Results Medications: Active Medications Generic Name Dose Route Start Last Admin Trade Name Freq PRN Reason Stop Dose Admin Acetaminophen 650 mg 11/01/24 18:03 Acetaminophen 325 Mg Tablet PO Q6H PRN Mild Pain (1-3) or Fever Benzonatate 100 mg 11/01/24 18:02 Benzonatate 100 Mg Capsule PO TID PRN Cough Cyanocobalamin 1,000 mcg 11/02/24 09:00 11/05/24 08:35 Cyanocobalamin 1,000 Mcg Tablet PO 1,000 mcg DAILY DELROY Administration Dextrose 12.5 gm 11/01/24 17:40 Dextrose 50% 25 Gm/50 Ml Syringe IV PUSH PRN PRN Hypoglycemia Protocol Empagliflozin 10 mg 11/02/24 09:00 11/05/24 08:35 Empagliflozin 10 Mg Tablet PO 10 mg DAILY DELROY Administration Enoxaparin Sodium 40 mg 11/02/24 09:00 11/05/24 08:35 Enoxaparin 40 Mg/0.4 Ml Syringe SUB-Q 40 mg DAILY DELROY Administration Furosemide 60 mg 11/02/24 09:00 11/04/24 17:04 Furosemide 20 Mg Tablet PO 60 mg BID DELROY Administration Glucagon 1 mg 11/01/24 17:40 Glucagon For Inj 1 Mg Vial IM PRN PRN Hypoglycemia Protocol Glucose 15 gm 11/01/24 17:40 Glucose Oral Gel 15 Gm Of Glucse In 37.5 Gm Tube PO PRN PRN Hypoglycemia Protocol Guaifenesin 600 mg 11/01/24 21:00 11/05/24 08:35 Guaifenesin 12 Hr 600 Mg Tabcr PO 600 mg Q12HR DELROY Administration Hydroxychloroquine Sulfate 200 mg 11/01/24 22:15 11/05/24 08:35 Hydroxychloroquine Sulfate 200 Mg Tablet PO 200 mg BIDWM DELROY Administration Levofloxacin/Dextrose 750 mg in 150 mls @ 100 mls/hr 11/02/24 19:00 11/04/24 19:55 Levaquin 750 Mg/D5w 150 Ml IVPB Infused Q24H DELROY Infusion Dextrose 1,000 mls @ 100 mls/hr 11/01/24 17:40 Dextrose 5% 1,000 Ml IVPB PRN PRN Hypoglycemia Protocol Ipratropium [place] 0.5 mg 11/01/24 20:24 Ipratropium Br 0.02% Inh Soln 0.5 Mg/2.5 Ml Vial INHALATION Q6HRT PRN Shortness Of Breath Levalbuterol HCl 1.25 mg 11/01/24 20:24 Levalbuterol Neb 1.25 Mg/3 Ml INHALATION Q6HRT PRN Shortness Of Breath Or Wheezing Rosuvastatin Calcium 10 mg 11/01/24 21:35 11/04/24 21:13 Rosuvastatin 10 Mg Tablet PO 10 mg QHS DELROY Administration Valsartan 80 mg 11/02/24 09:00 11/04/24 08:34 Valsartan 80 Mg Tablet PO 80 mg DAILY DELROY Administration Radiology Results: ITS Impressions Chest X-Ray 11/04/24 13:43 IMPRESSION: 1. Stable airspace opacities in the mid and lower lung zones, left worse than right, consistent with atelectasis versus pneumonia. Labs Labs: Laboratory Results - last 24 hr 11/05/24 05:15 WBC 3.8 L RBC 3.99 L Hgb 10.3 L Hct 34.2 L MCV 85.7 MCH 25.8 L MCHC 30.1 L RDW 20.0 H Plt Count 233 MPV 10.3 Sodium 135 L Potassium 4.7 Chloride 96 L Carbon Dioxide 32 H Anion Gap 7 BUN 46 H D Creatinine 1.98 H Estim Creat Clear Calc 33 Estimated GFR 27 L Glucose 109 Calcium 8.7
[2024-11-05 17:54] LABS: Anion Gap 8 mmol/L (4-12); Blood Urea Nitrogen 48 mg/dL (7-17); Calcium 8.8 mg/dL (8.4-10.2); Carbon Dioxide 32 mmol/L (22-30); Chloride 95 mmol/L (98-107); Estimated CRCL calculation 30 ml/min; Estimated Glomerular Filt Rate 24; Glucose 102 mg/dL (65-110); Potassium 4.8 mmol/L (3.4-5.0); Sodium 135 mmol/L (137-145)
[2024-11-05] MEDS: levoFLOXacin 750 MG/D5W 150 ML 750 MG/150 ML BAG 100 MG IVPB (18:36)
[2024-11-05] MEDS: ROSUVASTATIN 10 MG TABLET PO (20:10)
--- NOTE | 2024-11-05 22:52 | PC.NURSE ---
Pt has been desating on cpap to as low as 53% and sustained. Both respitory therapists and Yadi BREEN are present and touble shooting a solution.
[2024-11-06] VITALS (10 sets, daily range): BP systolic 119–135; BP diastolic 62–83; PULSE 78–99; RESP 16–20; TEMP 36.2–36.6; O2SAT 87–100
[2024-11-06 05:45] LABS: Add Urine Microscopic? NO; Appearance Urine Clear (Clear); Bilirubin Urine Negative (Negative); Blood Urine Negative (Negative); Color Urine Yellow (Yellow); Glucose Urine UA 3+ mg/dL (Negative); Ketones Urine Negative (Negative); Leukocyte Esterase Ur Negative LEU/UL (Negative); Nitrate Urine Negative (Negative); Protein Urine Negative (Negative); Specific Grav Ur 1.016 (1.001-1.035); Urobilinogen Urine 0.2 mg/dL (<2.0)
[2024-11-06 05:54] LABS: Creatinine Urine 70.8 mg/dL; Urea Random Urine 593 MG/DL
[2024-11-06 05:55] LABS: Sodium Urine Random 47 meq/L
[2024-11-06 05:55] LABS: Hematocrit 38.8 % (37.0-47.0); Hemoglobin 11.4 g/dL (12.0-15.0); Mean Corpuscular HGB Conc 29.4 g/dl (32-36); Mean Corpuscular Volume 88.6 fl (80-100); Mean Platelet Volume 10.2 fl (7.4-10.4); Platelet Count Result 278 k/mm3 (150-375); Red Blood Count 4.38 M/mm3 (4.2-5.4); Red Cell Distribution Width 19.9 % (11.5-14.5); White Blood Count 4.1 K/mm3 (4.5-10.0)
[2024-11-06 06:16] LABS: Anion Gap 8 mmol/L (4-12); Blood Urea Nitrogen 42 mg/dL (7-17); Calcium 9.2 mg/dL (8.4-10.2); Carbon Dioxide 31 mmol/L (22-30); Chloride 96 mmol/L (98-107); Estimated CRCL calculation 40 ml/min; Estimated Glomerular Filt Rate 35; Glucose 110 mg/dL (65-110); Potassium 4.9 mmol/L (3.4-5.0); Sodium 135 mmol/L (137-145)
[2024-11-06] MEDS: ENOXAPARIN 40 MG/0.4 ML SYRINGE SUB-Q (10:22)
[2024-11-06] MEDS: CYANOCOBALAMIN 1,000 MCG TABLET 1000 MCG PO (10:23)
[2024-11-06] MEDS: EMPAGLIFLOZIN 10 MG TABLET PO (10:23)
[2024-11-06] MEDS: guaiFENesin 12 HR 600 MG TABCR PO (10:23)
[2024-11-06] MEDS: HYDROXYCHLOROQUINE SULFATE 200 MG TABLET PO (10:23)
--- NOTE | 2024-11-06 11:20 | P.PNIM_ITS ---
Progress Note: A&P Assessment and Plan (1) Pneumonia: Qualifiers: Pneumonia type: due to unspecified organism Laterality: bilateral Lung location: unspecified part of lung Qualified Code(s): J18.9 - Pneumonia, unspecified organism Code(s): J18.9 - Pneumonia, unspecified organism Status: Acute (2) Hyperkalemia: Code(s): E87.5 - Hyperkalemia Status: Acute (3) CHF (congestive heart failure): Qualifiers: Heart failure chronicity: acute on chronic Heart failure type: diastolic Qualified Code(s): I50.33 - Acute on chronic diastolic (congestive) heart failure Code(s): I50.9 - Heart failure, unspecified Status: Chronic (4) Essential (primary) hypertension: Onset Date: Unknown Code(s): I10 - Essential (primary) hypertension Status: Chronic (5) STAS (obstructive sleep apnea): Code(s): G47.33 - Obstructive sleep apnea (adult) (pediatric) Status: Chronic Plan This is a 49 y/o F with PMH of restrictive lung disease secondary to obesity, moderate tricuspid regurgitation, diastolic heart failure, chronic hypercapnic respiratory failure, lymphedema of BLE, chronic venous insufficiency, hypertension, systemic lupus erythematosus, and STAS admitted for SOB. She reports shortness of breath and bilateral lower extremity edema- worsening over the last 5 days. Shortness of breath is accompanied by congestion, rhinorrhea, nonproductive cough. She denies fever, chills, body, nausea, vomiting,chest pain, or diarrhea. Patient is on supplemental O2 at night - 4L NC, does not require O2 during the day. No further complaints. Initial VS at presentation: 98.1? F, HR 107, RR 20, 99/56, and 91% on RA. Patient desatted to 82% on room air. Now 97% on 2L NC. ED workup showed: No leukocytosis, hemoglobin 10.5 (previously 11 on 10/26/2024), normal coags, potassium 5.7, creatinine 1.17 and GFR 49 (previously 1.98 and GFR 27 on 10/26/2024), initial troponin negative, BNP 1090. CXR showed airspace opacities in the right lower lung zone and left mid and lower lung zones consistent with atelectasis versus pneumonia, small right pleural effusion, and cardiomegaly. Initial EKG showed sinus rhythm, rate 86. Influenza RSV COVID swab was negative Multifocal pneumonia. Treated with levofloxacin. CT chest with left lower lobe bronchopneumonia. Continue levofloxacin 10 days course Hyperkalemia recently increased spironolactone dose. This is on hold along with potassium supplement. We resume spironolactone half dose at discharge Restrictive lung disease use reviewed obesity Moderate TR Chronic diastolic heart failure echo 11/02/2024 short normal left ventricular systolic and diastolic function right ventricular normal size in size and function systolic function no significant valvular disease. EF 60-65%. acute on chronic hypercapnic respiratory failure ctonineus to be an issue. will get ct chest to further evaluate.cxr reviewed. SOURAV: cr bumped up to 1.9 today. will give 500cc fluid. recheck recheck with improvement renal us negative Lymphedema bilateral lower extremity Chronic venous insufficiency Hypertension Mild chronic anemia Systemic lupus erythematosus Obstructive sleep apnea on CPAP Diet: Heart healthy GI Prophylaxis: Not currently indicated DVT Prophylaxis: Lovenox subQ Lines: Peripheral Code Status: Full code Subjective Date/time seen: 11/06/24 11:20 Interval history: Feels good no new complaints. Minimal cough. Breathing is better. CT chest reviewed with the patient. Review of Systems Review of Systems: All systems reviewed & are unremarkable except as noted in HPI and below Exam Narrative: APPEARANCE: Well-appearing not in acute distress HEAD: normocephalic, atraumatic. EYES: PERRLA/EOMI, conjunctivae clear. NECK: Supple. No adenopathy, no masses. RESPIRATORY: Airway patent, respirations nonlabored. Mild crackles at the base, no rhonchi, wheezing. CARDIOVASCULAR: Regular rate and rhythm without murmurs rubs or gallops. ABDOMINAL: Soft, nontender, nondistended, normal bowel sounds MUSCULOSKELETAL: Moves all extremities. Strength/ROM intact, No edema, No calf tenderness. NEURO: Alert. Cranial nerves II through XII intact. Grossly intact SKIN: Warm, dry. Normal Color Objective Data Vital Signs Vital Signs: Vital Signs - 24 hr 11/05/24 12:00 11/05/24 14:00 11/05/24 16:00 Temperature 97.6 F Pulse Rate 85 95 93 Respiratory Rate 18 Blood Pressure 100/70 Pulse Oximetry 97 Oxygen Delivery Oxygen Flow Rate Fraction of Inspired Oxygen 11/05/24 20:00 11/05/24 20:00 11/05/24 21:13 Temperature 97.0 F L Pulse Rate 102 H 103 H Respiratory Rate 18 Blood Pressure 103/54 L Pulse Oximetry 98 98 Oxygen Delivery Nasal Cannula Oxygen Flow Rate 1 Fraction of Inspired Oxygen 11/06/24 00:00 11/06/24 02:14 11/06/24 04:00 Temperature Pulse Rate 85 95 Respiratory Rate Blood Pressure Pulse Oximetry 95 Oxygen Delivery Nasal Cannula Oxygen Flow Rate 2 Fraction of Inspired Oxygen 28 11/06/24 06:00 Temperature 97.2 F L Pulse Rate 90 Respiratory Rate 20 Blood Pressure 135/83 Pulse Oximetry 100 Oxygen Delivery Oxygen Flow Rate Fraction of Inspired Oxygen Intake/Output Intake/Output: Intake & Output 11/03/24 11/04/24 11/06/24 11/06/24 23:59 23:59 00:59 23:59 Intake Total 1220 1350 1870 740 Output Total 2400 1100 1300 1300 Balance -1180 250 570 -560 Meds/Results Medications: Active Medications Generic Name Dose Route Start Last Admin Trade Name Freq PRN Reason Stop Dose Admin Acetaminophen 650 mg 11/01/24 18:03 Acetaminophen 325 Mg Tablet PO Q6H PRN Mild Pain (1-3) or Fever Benzonatate 100 mg 11/01/24 18:02 Benzonatate 100 Mg Capsule PO TID PRN Cough Cyanocobalamin 1,000 mcg 11/02/24 09:00 11/06/24 10:23 Cyanocobalamin 1,000 Mcg Tablet PO 1,000 mcg DAILY DELROY Administration Dextrose 12.5 gm 11/01/24 17:40 Dextrose 50% 25 Gm/50 Ml Syringe IV PUSH PRN PRN Hypoglycemia Protocol Empagliflozin 10 mg 11/02/24 09:00 11/06/24 10:23 Empagliflozin 10 Mg Tablet PO 10 mg DAILY DELROY Administration Enoxaparin Sodium 40 mg 11/02/24 09:00 11/06/24 10:22 Enoxaparin 40 Mg/0.4 Ml Syringe SUB-Q 40 mg DAILY DELROY Administration Furosemide 60 mg 11/02/24 09:00 11/04/24 17:04 Furosemide 20 Mg Tablet PO 60 mg BID DELROY Administration Glucagon 1 mg 11/01/24 17:40 Glucagon For Inj 1 Mg Vial IM PRN PRN Hypoglycemia Protocol Glucose 15 gm 11/01/24 17:40 Glucose Oral Gel 15 Gm Of Glucse In 37.5 Gm Tube PO PRN PRN Hypoglycemia Protocol Guaifenesin 600 mg 11/01/24 21:00 11/06/24 10:23 Guaifenesin 12 Hr 600 Mg Tabcr PO 600 mg Q12HR DELROY Administration Hydroxychloroquine Sulfate 200 mg 11/01/24 22:15 11/06/24 10:23 Hydroxychloroquine Sulfate 200 Mg Tablet PO 200 mg BIDWM DELROY Administration Dextrose 1,000 mls @ 100 mls/hr 11/01/24 17:40 Dextrose 5% 1,000 Ml IVPB PRN PRN Hypoglycemia Protocol Levofloxacin/Dextrose 750 mg in 150 mls @ 100 mls/hr 11/07/24 19:00 Levaquin 750 Mg/D5w 150 Ml IVPB Q48H DELROY Ipratropium [place] 0.5 mg 11/01/24 20:24 Ipratropium Br 0.02% Inh Soln 0.5 Mg/2.5 Ml Vial INHALATION Q6HRT PRN Shortness Of Breath Levalbuterol HCl 1.25 mg 11/01/24 20:24 Levalbuterol Neb 1.25 Mg/3 Ml INHALATION Q6HRT PRN Shortness Of Breath Or Wheezing Rosuvastatin Calcium 10 mg 11/01/24 21:35 11/05/24 20:10 Rosuvastatin 10 Mg Tablet PO 10 mg QHS DELROY Administration Valsartan 80 mg 11/02/24 09:00 11/04/24 08:34 Valsartan 80 Mg Tablet PO 80 mg DAILY DELROY Administration Radiology Results: ITS Impressions Chest X-Ray 11/04/24 13:43 IMPRESSION: 1. Stable airspace opacities in the mid and lower lung zones, left worse than right, consistent with atelectasis versus pneumonia. Renal Ultrasound 11/05/24 16:00 IMPRESSION: Unremarkable renal sonogram findings. Chest CT 11/05/24 18:10 IMPRESSION: Left lower lobe bronchopneumonia. Aspiration could also be considered in the differential. Trace left pleural effusion. Labs Labs: Laboratory Results - last 24 hr 11/05/24 11/06/24 11/06/24 17:30 05:29 05:40 WBC 4.1 L RBC 4.38 Hgb 11.4 L Hct 38.8 MCV 88.6 MCH 26.0 MCHC 29.4 L RDW 19.9 H Plt Count 278 MPV 10.2 Sodium 135 L 135 L Potassium 4.8 4.9 Chloride 95 L 96 L Carbon Dioxide 32 H 31 H Anion Gap 8 8 BUN 48 H 42 H Creatinine 2.14 H 1.57 H Estim Creat Clear Calc 30 40 Estimated GFR 24 L 35 L Glucose 102 110 Calcium 8.8 9.2 Urine Color Yellow Urine Appearance Clear Urine pH 5.0 Ur Specific [place] 1.016 Urine Protein Negative Urine Glucose (UA) 3+ H Urine Ketones Negative Ur Blood (Man) Negative Urine Nitrate Negative Urine Bilirubin Negative Urine Urobilinogen 0.2 Ur Leukocyte Esterase Negative Ur Random Sodium 47 Ur Random Urea 593 Urine Creatinine 70.8
--- NOTE | 2024-11-06 15:00 | HOMEO2EVAL ---
Evaluation was performed at [facility] Home Oxygen Evaluation RC: Home Oxygen (O2) Evaluation Start: 11/06/24 11:33 Freq: ONCE Status: Active Protocol: RPE Activity Type Activity Date Activity User E-sign Co-sign Detail Recorded Client Recorded Date Recorded By Document 11/06/24 13:00 [email or web address] [email or web address] 11/06/24 15:00 PEPE Document 11/06/24 13:03 [email or web address] [email or web address] 11/06/24 15:00 PEPE Document 11/06/24 13:04 [email or web address] 11/06/24 15:00 PEPE Document 11/06/24 13:05 [email or web address] 11/06/24 15:00 PEPE Document 11/06/24 13:15 [email or web address] [email or web address] 11/06/24 15:00 PEPE 11/06/24 11/06/24 11/06/24 13:00 13:03 13:04 Home O2 Evaluation [Oxygen] -Test Phase Resting Exercise Exercise -Oxygen Delivery Room Air Room Air Nasal Cannula -Oxygen Flow Rate (L/min) 1 [Pulse Oximetry] -Pulse Oximetry (90-100 %) 94 87 L 88 L [Pulse Rate] -Pulse Rate (60-100 beats/min) [Exercise] -Ambulation Distance (feet) -Ambulation Distance (meters) [Comments] -Home Oxygen Evaluation Comments [Charges] -Evaluation Charges O2 Evaluation by Pulmonary 11/06/24 11/06/24 13:05 13:15 Home O2 Evaluation [Oxygen] -Test Phase Exercise Resting -Oxygen Delivery Nasal Cannula Room Air -Oxygen Flow Rate (L/min) 2 [Pulse Oximetry] -Pulse Oximetry (90-100 %) 92 94 [Pulse Rate] -Pulse Rate (60-100 beats/min) 99 78 [Exercise] -Ambulation Distance (feet) 100 -Ambulation Distance (meters) 30.47 [Comments] -Home Oxygen Evaluation Comments Pt requires 2 liters with activity/ exertion. [Charges] -Evaluation Charges
--- NOTE | 2024-11-06 15:01 | PCRCNOTE ---
Pt has home O2 with [facility], home o2 eval today pt requires 2 l with activity, room air at rest, 4 l with cpap home unit. This is the same as her previous settings, no changes were made, pt has all O2 needs already arranged.
--- NOTE | 2024-11-06 15:12 | P.DS_ITS ---
DS: Admitting Diagnosis Discharge Date 11/06/2024 Admitting Diagnosis Shortness of breath DS: Discharge Diagnosis Discharge Diagnosis (1) Pneumonia: Qualifiers: Pneumonia type: due to unspecified organism Laterality: bilateral Lung location: unspecified part of lung Qualified Code(s): J18.9 - Pneumonia, unspecified organism Code(s): J18.9 - Pneumonia, unspecified organism Status: Acute (2) Hyperkalemia: Code(s): E87.5 - Hyperkalemia Status: Acute (3) CHF (congestive heart failure): Qualifiers: Heart failure chronicity: acute on chronic Heart failure type: diastolic Qualified Code(s): I50.33 - Acute on chronic diastolic (congestive) heart failure Code(s): I50.9 - Heart failure, unspecified Status: Chronic (4) Essential (primary) hypertension: Onset Date: Unknown Code(s): I10 - Essential (primary) hypertension Status: Chronic (5) STAS (obstructive sleep apnea): Code(s): G47.33 - Obstructive sleep apnea (adult) (pediatric) Status: Chronic DS: Summary Hospital Course Hospital Course: This is a 49 y/o F with PMH of restrictive lung disease secondary to obesity, moderate tricuspid regurgitation, diastolic heart failure, chronic hypercapnic respiratory failure, lymphedema of BLE, chronic venous insufficiency, hypertension, systemic lupus erythematosus, and STAS admitted for SOB. She reports shortness of breath and bilateral lower extremity edema- worsening over the last 5 days. Shortness of breath is accompanied by congestion, rhinorrhea, nonproductive cough. She denies fever, chills, body, nausea, vomiting,chest pain, or diarrhea. Patient is on supplemental O2 at night - 4L NC, does not require O2 during the day. No further complaints. Initial VS at presentation: 98.1? F, HR 107, RR 20, 99/56, and 91% on RA. Patient desatted to 82% on room air. Now 97% on 2L NC. ED workup showed: No leukocytosis, hemoglobin 10.5 (previously 11 on 10/26/2024), normal coags, potassium 5.7, creatinine 1.17 and GFR 49 (previously 1.98 and GFR 27 on 10/26/2024), initial troponin negative, BNP 1090. CXR showed airspace opacities in the right lower lung zone and left mid and lower lung zones consistent with atelectasis versus pneumonia, small right pleural effusion, and cardiomegaly. Initial EKG showed sinus rhythm, rate 86. Influenza RSV COVID swab was negative Multifocal pneumonia. Treated with levofloxacin. CT chest with left lower lobe bronchopneumonia. Continue levofloxacin 10 days course as ordered Hyperkalemia recently increased spironolactone dose. This is on hold along with potassium supplement. We resume spironolactone half dose at discharge. Follow- up with career technical counselor as previously scheduled Restrictive lung disease Moderate TR repeat echo with mild TR Chronic diastolic heart failure echo 11/02/2024 short normal left ventricular systolic and diastolic function right ventricular normal size in size and function systolic function no significant valvular disease. EF 60-65%. acute on chronic hypercapnic respiratory failure ctonineus to be an issue. will get ct chest to further evaluate.cxr reviewed. SOURAV: cr bumped up to 1.9 during the hospital stay for which IV fluid was given with subsequent improvement. Recheck recheck with improvement renal us negative Lymphedema bilateral lower extremity Chronic venous insufficiency Hypertension Mild chronic anemia Systemic lupus erythematosus Obstructive sleep apnea on CPAP Diet: Heart healthy GI Prophylaxis: Not currently indicated DVT Prophylaxis: Lovenox subQ Lines: Peripheral Code Status: Full code Time Spent with Patient Time attestation: Total time spent providing and/or coordinating discharge services: Exam Narrative: APPEARANCE: Well-appearing not in acute distress HEAD: normocephalic, atraumatic. EYES: PERRLA/EOMI, conjunctivae clear. NECK: Supple. No adenopathy, no masses. RESPIRATORY: Airway patent, respirations nonlabored. Mild crackles at the base, no rhonchi, wheezing. CARDIOVASCULAR: Regular rate and rhythm without murmurs rubs or gallops. ABDOMINAL: Soft, nontender, nondistended, normal bowel sounds MUSCULOSKELETAL: Moves all extremities. Strength/ROM intact, No edema, No calf tenderness. NEURO: Alert. Cranial nerves II through XII intact. Grossly intact SKIN: Warm, dry. Normal Color DS: Data Data Completed and Pending Labs on day of discharge: Labs from last 24 hours 11/06/24 11/06/24 11/05/24 05:40 05:29 17:30 WBC 4.1 L RBC 4.38 Hgb 11.4 L Hct 38.8 MCV 88.6 MCH 26.0 MCHC 29.4 L RDW 19.9 H Plt Count 278 MPV 10.2 Sodium 135 L 135 L Potassium 4.9 4.8 Chloride 96 L 95 L Carbon Dioxide 31 H 32 H Anion Gap 8 8 BUN 42 H 48 H Creatinine 1.57 H 2.14 H Estim Creat Clear Calc 40 30 Estimated GFR 35 L 24 L Glucose 110 102 Calcium 9.2 8.8 Urine Color Yellow Urine Appearance Clear Urine pH 5.0 Ur Specific [place] 1.016 Urine Protein Negative Urine Glucose (UA) 3+ H Urine Ketones Negative Ur Blood (Man) Negative Urine Nitrate Negative Urine Bilirubin Negative Urine Urobilinogen 0.2 Ur Leukocyte Esterase Negative Urine Eosinophils Pending Ur Random Sodium 47 Ur Random Urea 593 Urine Creatinine 70.8 Preliminary micro results at discharge 11/01/24 18:38 Blood Culture - Preliminary Blood 11/01/24 18:38 Blood Culture - Preliminary Blood Imaging Radiologist's impression: ITS Impressions Chest X-Ray 11/01/24 16:40 IMPRESSION: 1. Airspace opacities in right lower lung zone and left mid and lower lung zones, consistent with atelectasis versus pneumonia. 2. Small right pleural effusion. 3. Cardiomegaly. Chest X-Ray 11/04/24 13:43 IMPRESSION: 1. Stable airspace opacities in the mid and lower lung zones, left worse than right, consistent with atelectasis versus pneumonia. Renal Ultrasound 11/05/24 16:00 IMPRESSION: Unremarkable renal sonogram findings. Chest CT 11/05/24 18:10 IMPRESSION: Left lower lobe bronchopneumonia. Aspiration could also be considered in the differential. Trace left pleural effusion. Discharge Plan Discharge Attending physician on discharge: Aquiles Meade Discharging Clinician: Aquiles Meade Anticipated Discharge Date/Time: 11/06/24 15:01 Patient Disposition: Home, Self-Care Activity: as tolerated Diet: heart healthy Discharge Instructions: oxygen at home. 2l with activity. 3-4 L with CPAP as previously ordered. Patient Instructions: Antibiotic Form, Heart Failure (GEN) Patient Language: [place] Stand Alone Forms: General Discharge Information, Work/School Release IP Follow-up/Referrals: Diony Vazquez MD [Primary Care Provider] - 1 Week Discharge Medications: New guaifenesin [Mucus Relief ER] 600 mg Tablet Extended Release 12hr 600 mg PO Q12HR Qty: 30 0RF levofloxacin 750 mg tablet 750 mg PO Q48H Qty: 3 0RF Continued rosuvastatin 10 mg tablet 10 mg PO QHS valsartan 80 mg tablet 80 mg PO DAILY hydroxychloroquine 200 mg tablet 200 mg PO Q12H cyanocobalamin (vitamin B-12) [Vitamin B-12] 1,000 mcg Tablet 1,000 mcg PO DAILY furosemide 20 mg Tablet 60 mg PO BID 30 Days Qty: 180 0RF Jardiance 10 mg Tablet 10 mg PO DAILY Qty: 90 0RF Changed spironolactone 25 mg Tablet 12.5 mg PO QAM 30 Days Qty: 30 0RF Discontinued potassium chloride 20 mEq tablet extended release 20 meq PO DAILY Qty: 90 0RF Date of admission: 11/01/24 18:38 Primary Care Provider: Diony Vazquez Admitting Provider: Estevan Noriega Attending physician on admission: Estevan Noriega Condition: Stable
[2024-11-06 17:13] LABS: Eosinophil Urine None Seen % (None Seen); Urine Eos QC 2nd Tech Confirmed
== END 2024-11-06 16:02 | disposition home or self-care (01) | DRG 139 ==
LOC: ANHED 17:59 → ANH3MED 18:14
PROVIDERS: Nurse Practitioner; Student in an Organized Health Care Education/Training Program; Admitting Provider Hospitalist; Emergency Provider Emergency Medicine; PCP Family Medicine; Visit Provider Internal Medicine
DX: J18.9 Pneumonia, unspecified organism (principal); I11.0 Hypertensive heart disease with heart failure; I50.33 Acute on chronic diastolic (congestive) heart failure; D63.1 Anemia in chronic kidney disease; E66.01 Morbid (severe) obesity due to excess calories; E87.5 Hyperkalemia; G47.33 Obstructive sleep apnea (adult) (pediatric); I07.1 Rheumatic tricuspid insufficiency; J96.12 Chronic respiratory failure with hypercapnia; M32.9 Systemic lupus erythematosus, unspecified; Z99.81 Dependence on supplemental oxygen; Z20.822 Contact with and (suspected) exposure to COVID-19; Z79.84 Long term (current) use of oral hypoglycemic drugs; Z88.0 Allergy status to penicillin; Z68.42 Body mass index [BMI] 45.0-49.9, adult
CPT/HCPCS: 36415; 71046; 71250; 76775; 80048; 80053; 81003; 82570; 82948; 83880; 84300; 84484; 84540; 85025; 85027; 85610; 85730; 85999; 87040; 87637; 93005; 93306; 94618; 94640; 96365; 96375; 99285; A9270; G0378; G0379; J1650; J1815; J1940; J1956; J7040

== ENCOUNTER 2024-11-16 11:01 | Outpatient (CLI) | payer OTHER, SELFPAY ==
--- OUTSIDE RECORDS SUMMARY | 2024-11-16 12:01 | XMS_ITS | Encounter Summary ---
Author Organization [facility] Address [address] [place] [address] Care Team Providers Care Truck Switcher Name Role Phone Artemio Gaviria MD Primary Care Provider [phone] Encounter Details Date Type Department Care Team (Late st Contact Info) Description 06/12/2021 Lab Requisition [facility] [address] [place] [address] [place] [address] Social History Tobacco Use Types Packs/Day Years [...] AM CDT) Case Report Dermatopathology Report Case: [id number] Authorizing Provider: Renaldo Muniz MD Collected: 06/11/2021 12:00 AM Ordering Location: [facility] Received: 06/12/2021 01:27 PM [...] COMPOUND MELANOCYTIC NEVUS, IRRITATED (D22.5) 10:50 PM [facility] Clinical History A-C: R/O dys nevus 10:50 PM [facility] Gross Description Specimen A: [...] measuring 18x5x1 mm. Jar 0. 10:50 PM [facility] Microscopic Description Specimen A. [...] characteristic determined by the Dermatopathology Laboratory at [facility], directed by Dr. Lashanda Parks. These tests need not be, and therefore are not, approved by the [place] Food and Drug Administration. The tests are used for clinical purposes. Billing Codes Specimen Charges Stain Charges 08186 [id number] 1 1 1 [id number] 1 1 1 10:50 PM CDT DERMATOPATHOLOGY [...] - PATHOLOGY/CYTO LOGY ORDERABLES DERMATOPATHOLOGY LABORATORY [facility] - Department of Dermatology [facility] [address] [place] [address], [address] [phone] documented in this encounter Visit Diagnoses Not on filedocumented in this encounter Care Teams Truck Switcher Relationship Specialty Start Date End Date Artemio Gaviria MD [address] [place] [address] PCP - General 06/26/19 documented as of this encounter
--- OUTSIDE RECORDS SUMMARY | 2024-11-16 12:01 | XMS_ITS | Clinical Summary ---
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 Was on AZA-stopped due to being stable. Has history of pleural effusion, was following with [facility] Person, but needs to establish with a new one. Sister has SLE with LN s/p Cytoxan (Mindy Arguello) Encounters Date Type Department Care Team Description 11/09/2024 Telephone [facility] Cardiology [address] [facility] [place] 8th [place] [address] [place] [address] HuizarKristen 10/31/2024 Telephone [facility] Cardiology [address] [facility] Advanced [facility] 8th [place] [address] [place] [address] Jayesh Betancur MD 10/31/2024 Orders Only [facility] Scanning, Provider 10/27/2024 Orders Only [facility] Scanning, Provider 10/25/2024 Telephone [facility] Cardiology [address] [facility] [place] 8th [place] [address] [place] [address] Jayesh Betancur MD 10/24/2024 Telephone [facility] Cardiology [address] [facility] 8th [place] [address] [place] [address] Jayesh Betancur MD 09/06/2024 9:52 AM SPECIFICATION WRITER - 09/06/2024 11:59 PM SPECIFICATION WRITER Hospital Encounter [facility] [address] [place] [address] Chronic diastolic heart failure (HCC); SOB (shortness of breath); Primary hypertension Discharge Disposition: Discharge to home or self care 09/06/2024 9:45 AM SPECIFICATION WRITER Lab [facility] Endocrinology Metabolism and Lipid [address] [place] [address] 8th [place] [address] [place] [address] Chronic diastolic heart failure (HCC); SOB (shortness of breath); Primary hypertension 09/06/2024 9:00 AM SPECIFICATION WRITER Office Visit [facility] Cardiology [facility] [facility] 8th [place] [address] [place] [address] Jayesh Betancur MD Chronic diastolic heart failure (HCC) (Primary Dx); SOB (shortness of breath); Primary hypertension 08/21/2024 Orders Only [facility] Cardiology [address] [place] [address] Nadira Leyva NP from Last [...] 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 [place] Level IV + one node N O [...] on file Legal Sex Female 6:34 AM SPECIFICATION WRITER Gender Identity Female 01/18/2022 11:01 PM CDT Sexual Orientation Straight 01/18/2022 11 :01 PM CDT Obstetrics History Last Filed Vital Signs Vital Sign Reading Time Taken Comments Blood Pressure 98/68 09/06/2024 8:42 AM SPECIFICATION WRITER Pulse 73 09/06/2024 8:42 AM SPECIFICATION WRITER Temperature 36.5 C (97.7 F) 07/20/2023 7:58 AM SPECIFICATION WRITER Respiratory Rate 14 01/26/2023 8:26 AM CDT Oxygen Saturation 96% 09/06/2024 8:42 AM SPECIFICATION WRITER Inhaled Oxygen Concentration - - Weight 114.1 kg (251 lb 9.6 oz) 09/06/2024 8:42 AM SPECIFICATION WRITER Height 162.6 cm (5' 4 ) 09/06/2024 8:42 AM SPECIFICATION WRITER Body Mass Index 43.19 09/06/2024 8:42 AM SPECIFICATION WRITER Plan of Treatment Health Maintenance Due Date [...] DIFF, BJ Routine 09/06/2024 9:5 2 AM SPECIFICATION WRITER Chronic diastolic heart failure (HCC) SOB (shortness of breath) Primary hypertension APOLIPOPROTEIN B Routine 09/06/2024 9:52 AM SPECIFICATION WRITER Chronic diastolic heart failure (HCC) SOB (shortness of breath) Primary hypertension PRO B-TYPE NATRIURETIC PEPTIDE Routine 09/06/2024 9:52 AM SPECIFICATION WRITER Chronic diastolic heart failure (HCC) SOB (shortness of breath) Primary hypertension LIPOPROTEIN A (LPA) Routine 09/06/2024 9 :52 AM SPECIFICATION WRITER Chronic diastolic heart failure (HCC) SOB (shortness of breath) Primary hypertension IRON PROFILE W/ IBC Routine 09/06/2024 9 :52 AM SPECIFICATION WRITER Chronic diastolic heart failure (HCC) SOB (shortness of breath) Primary hypertension HEMOGLOBIN A1C Routine 09/06/2024 9:52 AM SPECIFICATION WRITER Chronic diastolic heart failure (HCC) SOB (shortness of breath) Primary hypertension COMPREHENSIVE METABOLIC PANEL Routine 09/06/2024 9:52 AM SPECIFICATION WRITER Chronic diastolic heart failure (HCC) SOB (shortness of breath) Primary hypertension LIPID PANEL Routine 09/06/2024 9:52 AM SPECIFICATION WRITER Chronic diastolic heart failure (HCC) SOB (shortness of breath) Primary hypertension from Last 3 Months Results * SCAN - LABS (10/31/2024) us Provider Scanning Final Result * SCAN - LABS (10/27/2024) us Provider Scanning Final Result * (ABNORMAL) CBC with Diff, BJ (09/06/2024 9:52 AM SPECIFICATION WRITER) White Blood Count 4.10 3.80 - 9.90 K/cumm [facility] Comment: Red Blood Count 6.41(H) 3.90 - 5.20 M/cumm [facility] Hemoglobin 14.9 11.9 - 15.5 g/dL [facility] Hematocrit 51.2(H) 35.6 - 45.5 % [facility] Platelet Count 146(L) 150 - 400 K/cumm [facility] MCV 79.9(L) 81.3 - 96.4 fl [facility] MCH 23.2(L) 27.1 - 33.3 pg [facility] MCHC 29.1(L) 32.3 - 35.7 g/dL [facility] MPV Not Measured 9.1 - 12.3 fl [facility] RDW SD 55.6(H) 35.7 - 48.1 fL [facility] RDW CV 19.9(H) 11.1 - 14.9 % [facility] Neut Abs 2.6 1.5 - 6.5 K/cumm [facility] Imm Gran Abs 0.00 0.00 - 0.10 K/cumm [facility] Lymph Abs 1.00 0.80 - 3.30 K/cumm [facility] Berks Abs 0.30 0.20 - 0.80 K/cumm [facility] Eos Abs 0.10 0.00 - 0.50 K/cumm [facility] Baso Abs 0.00 0.00 - 0.10 K/cumm [facility] Neut Pct 64.1 % [facility] Imm Gran Pct 0.2 % [facility] Lymph Pct 24.6 % [facility] Berks Pct 8.0 % [facility] Eos Pct 2.4 % [facility] Baso Pct 0.7 % [facility] NRBC Abs 0.00 0.00 - 0.01 K/cumm [facility] 09/06/2024 9:52 AM SPECIFICATION WRITER 09/06/2024 11:49 AM SPECIFICATION WRITER Narrative [facility] - 09/07/2024 8:35 AM SPECIFICATION WRITER Testing performed at [facility] - [address] [place] [address]. Jayesh Betancur MD LAB BLOOD ORDERABLES Final R esult [facility] * Pro B-type natriuretic peptide (09/06/2024 9:52 AM SPECIFICATION WRITER) NT-proBNP <50 <=300 pg/mL Comment: Interpretive Comments: [...] Heart J. 2006:27:330-337. 2. Sandra GARCIA, Dillon GASTELUM. J. AM Kerline Cardiol: Cardiovasc Imag. 2009;2: 216- 225. Interpretive Data Last Revised Date: 2018. Blood 09/06/2024 9:52 AM SPECIFICATION WRITER 09/06/2024 11:28 AM SPECIFICATION WRITER Jayesh Betancur MD LAB BLOOD ORDERABLES Final R esult Performing Organization Address City/[facility] Co de Phone Number MAREN HERNANDEZ [facility] Department [place] [address] * Iron profile w/ IBC (09/06/2024 9:52 AM SPECIFICATION WRITER) Iron 96 30 - 160 ug/dL [facility] TIBC 292 220 - 420 ug/dL [facility] Iron saturation 32.9 11.0 - 52.0 % [facility] Blood 09/06/2024 9:52 AM SPECIFICATION WRITER 09/06/2024 11:49 AM SPECIFICATION WRITER Jayesh Betancur MD LAB BLOOD ORDERABLES Final R esult [facility] * Apolipoprotein B, serum (09/06/2024 9:52 AM SPECIFICATION WRITER) Apolipoprotein B 90 mg/dL [facility] Comment: REFERENCE VALUE Desirable: <90 Above Desirable: 90-99 Borderline high: 100-119 High: 120-139 Very high: > or = 140 Test Performed by: [address] [address] Pharmacy Cashier: Yusuf Lorenzo Ph.D.; CLIA# [id number] Blood 09/06/2024 9:52 AM SPECIFICATION WRITER 09/06/2024 1:01 PM SPECIFICATION WRITER Jayesh Betancur MD LAB BLOOD ORDERABLES Final R esult Performing Organization Address City/[facility]/ZIP Co de Phone Number MAREN HERNANDEZ [facility] Department [place] [address] [place] ref Lab * Lipoprotein a (LPa) (09/06/2024 9:52 AM SPECIFICATION WRITER) Lipoprotein (A) 37.9 <=75.0 nmol/L [facility] [...] FDA, although they are provided by the web application developer and widely accepted as the preferred units for reporting. [facility] is regulated under CLIA as qualified to perform high-complexity testing. Blood 09/06/2024 9:52 AM SPECIFICATION WRITER 09/06/2024 11:49 AM SPECIFICATION WRITER Jayesh Betancur MD LAB BLOOD ORDERABLES Final R esult [facility] * (ABNORMAL) Hemoglobin A1c (09/06/2024 9:52 AM SPECIFICATION WRITER) HbA1c 6.1(H) 5.1 - 5.6 % [facility] Comment: HBA1C 5.1 - 5.6 = NORMAL HBA1C 5.7 - 6.4 = PREDIABETES HBA1C >=6.5 = PROVISIONAL DIAGNOSIS OF DIABETES Estimated Average Glucose 128 mg/dL [facility] Blood 09/06/2024 9:52 AM SPECIFICATION WRITER 09/06/2024 11:49 AM SPECIFICATION WRITER Jayesh Betancur MD LAB BLOOD ORDERABLES Final R esult Performing Organization Address [facility] Co de Phone Number [facility] * (ABNORMAL) Lipid panel (09/06/2024 9:52 AM SPECIFICATION WRITER) Triglycerides 161(H) <150 mg/dL [facility] [...] triglycerides are elevated. Blood 09/06/2024 9:52 AM SPECIFICATION WRITER 09/06/2024 11:49 AM SPECIFICATION WRITER Narrative [facility] - 09/06/2024 1:32 PM SPECIFICATION WRITER Current interpretive data was last updated August 01, 2021. For adults ages 40-79, the ACC/AHA recommends discussing your 10-year atherosclerotic cardiovascular disease risk with your health care provider. https://www.acc.org/ASCVDApp Jayesh Betancur MD LAB BLOOD ORDERABLES Final R esult Performing Organization Address City/[facility]/ZIP Co de Phone Number [facility] * (ABNORMAL) Comprehensive metabolic panel (09/06/2024 9:52 AM SPECIFICATION WRITER) Total Protein 9.0(H) 6.1 - 8.4 g/dL [...] [facility] Blood 09/06/2024 9:52 AM SPECIFICATION WRITER 09/06/2024 11:49 AM SPECIFICATION WRITER us Jayesh Betancur MD LAB BLOOD ORDERABLES Final R esult [facility] from Last 3 Months Insurance [employer] [facility] Care Teams Tactical Debriefer Officer Relationship Specialty Start Date End Date Mary Vazquez MD PCP - General Family Practice 03/05/20
--- OUTSIDE RECORDS SUMMARY | 2024-11-16 12:01 | XMS_ITS | Encounter Summary ---
Author Organization [facility] Address [address] [place] [address] Care Team Providers Care Material Handling Warehouse Supervisor Name Role Phone Artemio Gaviria MD Primary Care Provider [phone] Encounter Details Date Type Department Care Team (Late st Contact Info) Description 12/21/2019 Lab Requisition [facility] DermPath Lab [address] [place] [address] [place] [address] Social History Tobacco Use Types Packs/Day Years [...] AM CDT) Case Report Dermatopathology Report Case: [id number] Authorizing Provider: Renaldo Muniz MD Collected: 12/20/2019 12:00 AM Ordering Location: [facility] Received: 12/21/2019 12:58 PM [...] specimen consists of a shave biopsy measuring 1m4a1bw. Jar 0. Specimen B: Received is one formalin filled container labeled with the patient's name and designated left upper back above scar. The specimen consists of a shave biopsy measuring [id number]. Jar 0. Specimen C: Received is one formalin filled container labeled with the patient's name and designated left med upper back above scar. The specimen consists of a shave biopsy measuring 25y75m8dm. Jar 0. Specimen D: Received is one formalin filled container. The specimen consists of a shave biopsy measuring 5u8t5cf. Jar 0. 0 2:28 PM CDT DERMATOPATHOLOGY [...] characteristic determined by the Dermatopathology Laboratory at [facility], directed by Dr. Lashanda Parks. These tests need not be, and therefore are not, approved by the [place] Food and Drug Administration. The tests are used for clinical purposes. Billing Codes Specimen Charges Stain Charges 41650 56620 44461 63228 1 1 1 1 0 2:28 PM [...] LAB - PATHOLOGY/CYTO LOGY ORDERABLES DERMATOPATHOLOGY LABORATORY [facility] - Department of Dermatology [address] [place] [address], 5th Floor Lab [address] [phone] documented in this encounter Visit Diagnoses Not on filedocumented in this encounter Care Teams Material Handling Warehouse Supervisor Relationship Specialty Start Date End Date Artemio Gaviria MD [address] [place] [address] PCP - General 06/26/19 documented as of this encounter
--- OUTSIDE RECORDS SUMMARY | 2024-11-16 12:01 | XMS_ITS | Encounter Summary ---
Author Organization [facility] Address [address] [facility] [place] [address] Care Team Providers Care Officer Lieutenant Name Role Phone Artemio Gaviria MD Primary Care Provider [phone] Encounter Details Date Type Department Care Team (Late st Contact Info) Description 10/12/2019 Lab Requisition [facility] DermPath Lab [address] [place] [address] Renaldo Muniz MD [place] [address] Social History Tobacco Use Types Packs/Day Years [...] Comments DERMATOPATHOLOGY Routine 10/11/2019 12:0 0 AM REIMBURSEMENT SPEC documented in this encounter Results * DERMATOPATHOLOGY (10/11/2019 12:00 AM REIMBURSEMENT SPEC) Case Report Dermatopathology Report Case: [id number] Authorizing Provider: Renaldo Muniz MD Collected: 10/11/2019 12:00 AM Ordering Location: [facility] Lab Received: 10/12/2019 12:56 PM Pathologist: Reny Clark MD Specimens: A) - Skin, right parapsinal lower back B) - Skin, right mid lat back C) - Skin, right lower back 0 2:11 PM REIMBURSEMENT SPEC DERMATOPATHOLOGY LABORATORY Final Diagnosis Specimen A. SKIN, [...] WITH ARCHITECTURAL DISORDER) (D22.5) 0 2:11 PM [facility] DERMATOPATHOLOGY [facility]ORATORY Clinical History A-C: R/O dysplastic lentinginous nevus 0 2:11 PM [facility] DERMATOPATHOLOGY LABORATORY Gross Description Specimen A: Received [...] 10x7x1 mm. Jar 0. 0 2:11 PM [facility] DERMATOPATHOLOGY LABORATORY Microscopic Description Specimen A. SKIN, [...] or Compound Dysplastic Nevus) 0 2:11 PM [facility] DERMATOPATHOLOGY LABORATORY Disclaimer An external and internal positive and negative controls are appropriate for the histochemical, immunohistochemical and immunofluorescence stain(s) in this case (if any), except where stated explicitly. The performance characteristics of the stain(s) cited in this report were developed and its performance characteristic determined by the Dermatopathology Laboratory at [facility], directed by Dr. Lashanda Parks. These tests need not be, and therefore are not, approved by the [place] Food and Drug Administration. The tests are used for clinical purposes. Billing Codes Specimen Charges Stain Charges 66647 94042 29797 1 1 1 0 2:11 PM [facility] DERMATOPATHOLOGY LABORATORY Embedded Images 0 2:11 PM [facility] DERMATOPATHOLOGY LABORATORY Pathology/Cytology TISSUE SPECIMEN FROM SKIN / Unknown 10/11/2019 10/12/2019 12:56 PM REIMBURSEMENT SPEC Miscellaneous samples (specimen) TISSUE SPECIMEN FROM SKIN / Unknown 10/11/2019 10/12/2019 12:56 PM REIMBURSEMENT SPEC Miscellaneous samples (specimen) TISSUE SPECIMEN FROM SKIN / Unknown 10/11/2019 10/12/2019 12:56 PM REIMBURSEMENT SPEC Renaldo Muniz MD LAB - PATHOLOGY/CYTO LOGY ORDERABLES DERMATOPATHOLOGY LABORATORY [facility] - Department of Dermatology [facility] [facility], [place] 5th Floor Lab [address] [phone] documented in this encounter Visit Diagnoses Not on filedocumented in this encounter Care Teams Officer Lieutenant Relationship Specialty Start Date End Date Artemio Gaviria MD [address] [place] [address] PCP - General 06/26/19 documented as of this encounter
--- OUTSIDE RECORDS SUMMARY | 2024-11-16 12:01 | XMS_ITS | Encounter Summary ---
Author Organization [facility] Address [address] [place] [address] Care Team Providers Care Zookeeper Name Role Phone Artemio Gaviria MD Primary Care Provider [phone] Encounter Details Date Type Department Care Team (Late st Contact Info) Description 01/15/2021 Lab Requisition [facility] DermPath Lab [address] [facility] [place] [phone] [place] [address] Social History Tobacco Use Types Packs/Day Years [...] AM CDT) Case Report Dermatopathology Report Case: [id number] Authorizing Provider: Renaldo Muniz MD Collected: 01/14/2021 12:00 AM Ordering Location: [facility] DermPath Lab Received: 01/15/2021 01:48 PM Pathologist: [...] WITH ARCHITECTURAL DISORDER) (D22.4) 4:27 PM [facility] DERMATOPATHOLOGY LABORATORY Clinical History A-D: R/O dys nevus. 4:27 PM [facility] DERMATOPATHOLOGY LABORATORY Gross Description Specimen A: Received is one formalin filled container labeled with the patient's name and designated left upper lat back. The specimen consists of a shave biopsy measuring 99h66k7es. Jar 0. Specimen B: Received is one formalin filled container labeled with the patient's name and designated right lower back. The specimen consists of a shave biopsy measuring 53n9s93qq. Jar 0. Specimen C: Received is one formalin filled container labeled with the patient's name and designated right lower back lat. The specimen consists of a shave biopsy measuring 6z7x1ds. Jar 0. Specimen D: Received is one formalin filled container labeled with the patient's name and designated below right ear. The specimen consists of a shave biopsy measuring 7e9u9yf. Jar 0. 1 4:27 PM [facility] DERMATOPATHOLOGY LABORATORY Microscopic Description Specimen A. [...] characteristic determined by the Dermatopathology Laboratory at [facility], directed by Dr. Lashanda Parks. These tests need not be, and therefore are not, approved by the [place] Food and Drug Administration. The tests are used for clinical purposes. Billing Codes Specimen Charges Stain Charges 86142 12976 63913 06593 1 1 1 1 13365 43709 18149 30028 1 1 1 1 1 4:27 PM [...] LABORATORY [facility] - Department of Dermatology [facility] [address] [address], [address] [phone] documented in this encounter Visit Diagnoses Not on filedocumented in this encounter Care Teams Zookeeper Relationship Specialty Start Date End Date Artemio Gaviria MD [address] [place] [phone] PCP - General 06/26/19 documented as of this encounter
--- OUTSIDE RECORDS SUMMARY | 2024-11-16 12:01 | XMS_ITS | Clinical Summary ---
Author Organization [facility] Address [address] [place] [address] Care Team Providers Care Conductor Sleeping Car Name Role Phone Artemio Gaviria MD Primary Care Provider [phone] Source Comments [facility],non-owned Affiliates and Associated Physician Practices is amultiple site organization consisting of ambulatory clinics and hospital sitesin [place], [place], [place] and [place]. This disclosure is being madepursuant to the Care Everywhere program and may not contain all information available regarding this patient. Last updated 18.[facility] Searchles Social History Tobacco Use Types Packs/Day Years [...] to complete this topic MENINGOCOCCAL (Group B) VACC INE SHARED DECISION-MAKING Aged Out No longer eligibl e based on patient's age to complete this topic MENINGOCOCCAL GROUPS A/C/Y/W VACCINE Aged Out No longer eligible b ased on patient's age to complete this topic PNEUMOCOCCAL VACCINE Aged Out No long er eligible based on patient's age to complete this topic Care Teams Conductor Sleeping Car Relationship Specialty Start Date End Date Artemio Gaviria MD [address] [place] [address] PCP - General 06/26/19
--- OUTSIDE RECORDS SUMMARY | 2024-11-16 12:01 | XMS_ITS | CONTINUITY OF CARE DOCUMENT ---
Author Name bala mckenna Address Unknown Organization [facility] Address [address] [place] [address] [address] [place] [address] Phone [phone] Care Team Providers Care Skiver Operator Name Role Phone Darya CONTEH, Adonay Unavailable [phone] Adonay Lackey MD Unavailable [phone] George CONTEH, Mary Unavailable [phone] INSURANCE PROVIDERS Payer name Policy type / Coverage type [place] red green party ID [facility] Medicaid 4 [id number]
--- OUTSIDE RECORDS SUMMARY | 2024-11-16 12:01 | XMS_ITS | Clinical Summary ---
Author Organization [facility] surjit [facility] Address [address] [place] [address] [place] [address] Care Team Providers Care Risk Analyst Name Role Phone Mary Vazquez MD Primary Care Provider Allergies Active Allergy Reactions Criticality Noted Date Comments Amoxicillin Rash Medium 02/08/2018 Penicillins Rash Low 02/02/2019 Sulfa (Sulfonamide Antibiotics) Hives,Rash,Unknown High 01/31/2019 Sulfamethoxazole-Trimethoprim Rash Low 2018 Medications triamterene-hyd roCHLOROthiazid e (DYAZIDE) 37.5-25 mg capsule Take 1 Capsule by mouth daily loss prevention auditor. Active hydroxychloroqu ine (PLAQUENIL) 200 mg tablet [...] daily per Lupus Dr. Ashly Florez MD @@[facility] Active albuterol sulfate 90 mcg/Actuation inhaler TAKE [...] Comments Blood Pressure 122/78 07/16/2022 3:27 PM FUNCTIONAL MANAGER Pulse 98 07/16/2022 3:27 PM FUNCTIONAL MANAGER Temperature 37.2 C (98.9 F) 07/16/2022 3:27 PM FUNCTIONAL MANAGER Respiratory Rate 16 07/16/2022 3:27 PM FUNCTIONAL MANAGER Oxygen Saturation 96% 07/16/2022 3:27 PM FUNCTIONAL MANAGER Inhaled Oxygen Concentration - - Weight 134.9 kg (297 lb 6.4 oz) 07/16/2022 3:27 PM FUNCTIONAL MANAGER Height 154.9 cm (5' 1 ) 01/15/2022 3:09 PM CDT Body Mass Index 56.19 01/15/2022 3:09 PM CDT Plan of Treatment Health Maintenance Due Date Last Done Comments DTAP/TDAP/TD VACCINES (1 - Tdap) 1993 HEPATITIS B VACCINES (1 of 3 - 19+ 3-dose series) 1993 ZOSTER VACCINE (1 of 2) 1993 PAP SMEAR 2004 BREAST CANCER SCREENING 2014 COLORECTAL SCREENING 2019 Colorectal Cancer Screening 2019 FIT-DNA Q 3 years 2019 FIT/FOBT Q 1 year 2019 Flex Sig/CT Colonography Q 5 years 2019 INFLUENZA VACCINE (#1) 2024 2, 06/19/2020, 06/18/2020, Additional history exists Insurance [employer] TR[employer]AL Care Teams Risk Analyst Relationship Specialty Start Date End Date Mary Vazquez MD [address] [place] [phone] PCP - General Family Practice 06/30/19
--- OUTSIDE RECORDS SUMMARY | 2024-11-16 12:01 | XMS_ITS | Encounter Summary ---
Author Organization [facility] Address [address] [place] [address] Phone Care Team Providers Care Fisher Troll Line Name Role Phone Mary Vazquez MD Primary Care Provider Encounter Details Date Type Department Care Team (Late st Contact Info) Description 11/09/2024 Telephone [facility] Cardiology [facility] 8th [place] [address] [place] [address] Kristen Huizar Social History Tobacco Use Types Packs/Day Years [...] file Legal Sex Female 6:34 AM ASSISTANT VICE PRESIDENT Gender Identity Female 01/18/2022 11:01 PM CDT Sexual Orientation Straight 01/18/2022 11 :01 PM CDT documented as of this encounter Miscellaneous Notes * Telephone Encounter - Jayesh Betancur MD - 11/13/2024 5:03 PM CDT Great * Telephone Encounter - Goldie Westbrook RN - 11/09/2024 2:34 PM CDT Called pt to discuss She was recently in the hospital with pneumonia and changed some of her meds. Stopped the potassium And cut her judi to 12.5 mg daily Furosemide 40 mg daily Still taking valsartan 80 mg Jardiance 10 mg every day Crestor 10 mg Spoke with pt she is doing well now. She has f/u with her pcp on 11/16 * Telephone Encounter - Kristen Huizar - 11/09/2024 9:37 AM CDT HUSEYIN PT CALLING IN REGARDS TO MEDICATION CHANGES THAT WERE MADE WHILE IN THE HOSP documented in this encounter Plan of Treatment Not on file documented as of this encounter Visit Diagnoses Not on filedocumented in this encounter Care Teams Fisher Troll Line Relationship Specialty Start Date End Date Mary Vazquez MD PCP - General Family Practice 03/05/20 documented as of this encounter
--- OUTSIDE RECORDS SUMMARY | 2024-11-16 12:01 | XMS_ITS | Clinical Summary ---
Author Organization [facility] Address [address] [place] [address] Care Team Providers Care 3D Designer Name Role Phone Ary Wooten CREW CHIEF Primary Care Provider [phone] Social History Tobacco Use Types Packs/Day Years [...] age to complete this topic Insurance [place] [address] Care Teams 3D Designer Relationship Specialty Start Date End Date Ary Wooten FNP [address] [place] [address] PCP - General NURSE PRACTITIONER 04/04/24
--- OUTSIDE RECORDS SUMMARY | 2024-11-16 12:01 | XMS_ITS | Referral Summary ---
Author Organization [facility] Address [address] [place] [address] Care Team Providers Care Programmer Analyst Health It Name Role Phone Mary Vazquez MD Primary Care Provider Encounters Date Type Department Care Team Description 11/09/[address] [facility] Cardiology [address] [facility] 8th [place] [address] [place] [address] Kristen Huizar 10/31/[address] [facility] Cardiology [address] [facility] 8th [place] [address] [place] [address] Jayesh Betancur MD 10/31/2024 Orders Only [facility] Scanning, Provider 10/27/2024 Orders Only [facility] Scanning, Provider 10/25/[address] [facility] Cardiology [address] [facility] 8th [place] [address] [place] [address] Jayesh Betancur MD 10/24/[address] [facility] Cardiology [address] [facility] 8th [place] [address] [place] [address] Jayesh Betancur MD 09/06/2024 9:52 AM SHEARING SUPERVISOR - 09/06/2024 11:59 PM SHEARING SUPERVISOR Hospital Encounter [address] [address] Chronic diastolic heart failure (HCC); SOB (shortness of breath); Primary hypertension Discharge Disposition: Discharge to home or self care 09/06/2024 9:45 AM SHEARING SUPERVISOR Lab [facility] Endocrinology Metabolism and Lipid [address] [facility] 8th [place] [address] [place] [address] Chronic diastolic heart failure (HCC); SOB (shortness of breath); Primary hypertension 09/06/2024 9:00 AM SHEARING SUPERVISOR Office Visit [facility] Cardiology [address] [facility] 8th [place] [address] [place] [address] Jyaesh Betancur MD Chronic diastolic heart failure (HCC) (Primary Dx); SOB (shortness of breath); Primary hypertension 08/21/[address] 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 Was on AZA-stopped due to being stable. Has history of pleural effusion, was following with Diet Therapist, but needs to establish with a new [...] on file Legal Sex Female 6:34 AM SHEARING SUPERVISOR Gender Identity Female 01/18/2022 11:01 PM CDT Sexual Orientation Straight 01/18/2022 11 :01 PM CDT Last Filed Vital Signs Vital Sign Reading Time Taken Comments Blood Pressure 98/68 09/06/2024 8:42 AM SHEARING SUPERVISOR Pulse 73 09/06/2024 8:42 AM SHEARING SUPERVISOR Temperature 36.5 C (97.7 F) 07/20/2023 7:58 AM SHEARING SUPERVISOR Respiratory Rate 14 01/26/2023 8:26 AM CDT Oxygen Saturation 96% 09/06/2024 8:42 AM SHEARING SUPERVISOR Inhaled Oxygen Concentration - - Weight 114.1 kg (251 lb 9.6 oz) 09/06/2024 8:42 AM SHEARING SUPERVISOR Height 162.6 cm (5' 4 ) 09/06/2024 8:42 AM SHEARING SUPERVISOR Body Mass Index 43.19 09/06/2024 8:42 AM SHEARING SUPERVISOR Plan of Treatment Not on file Procedures Procedure Name Priority Date/Time Associated Diagnosis Comments SCAN - LABS 10/31/2024 SCAN - LABS 10/27/2024 CBC WITH DIFF, BJ Routine 09/06/2024 9:5 2 AM SHEARING SUPERVISOR Chronic diastolic heart failure (HCC) SOB (shortness of breath) Primary hypertension APOLIPOPROTEIN B Routine 09/06/2024 9:52 AM SHEARING SUPERVISOR Chronic diastolic heart failure (HCC) SOB (shortness of breath) Primary hypertension PRO B-TYPE NATRIURETIC PEPTIDE Routine 09/06/2024 9:52 AM SHEARING SUPERVISOR Chronic diastolic heart failure (HCC) SOB (shortness of breath) Primary hypertension LIPOPROTEIN A (LPA) Routine 09/06/2024 9 :52 AM SHEARING SUPERVISOR Chronic diastolic heart failure (HCC) SOB (shortness of breath) Primary hypertension IRON PROFILE W/ IBC Routine 09/06/2024 9 :52 AM SHEARING SUPERVISOR Chronic diastolic heart failure (HCC) SOB (shortness of breath) Primary hypertension HEMOGLOBIN A1C Routine 09/06/2024 9:52 AM SHEARING SUPERVISOR Chronic diastolic heart failure (HCC) SOB (shortness of breath) Primary hypertension COMPREHENSIVE METABOLIC PANEL Routine 09/06/2024 9:52 AM SHEARING SUPERVISOR Chronic diastolic heart failure (HCC) SOB (shortness of breath) Primary hypertension LIPID PANEL Routine 09/06/2024 9:52 AM SHEARING SUPERVISOR Chronic diastolic heart failure (HCC) SOB (shortness of breath) Primary hypertension from Last 3 Months Results * SCAN - LABS (10/31/2024) Provider Scanning Final Result * SCAN - LABS (10/27/2024) Provider Scanning Final Result * (ABNORMAL) CBC with Diff, BJ (09/06/2024 9:52 AM [facility]) [facility] White Blood Count 4.10 3.80 - 9.90 K/cumm [facility] Comment: Red Blood Count 6.41(H) 3.90 - 5.20 M/cumm [facility] Hemoglobin 14.9 11.9 - 15.5 g/dL [facility] Hematocrit 51.2(H) 35.6 - 45.5 % [facility] Platelet Count 146(L) 150 - 400 K/cumm [facility] MCV 79.9(L) 81.3 - 96.4 [...] - 3.30 K/cumm [facility] Green Abs 0.30 0.20 - 0.80 K/cumm [facility] Eos Abs 0.10 0.00 - 0.50 K/cumm [facility] Baso Abs 0.00 0.00 - 0.10 K/cumm [facility] Neut Pct 64.1 % [facility] Imm Gran Pct 0.2 % [facility] Lymph Pct 24.6 % [facility] Green Pct 8.0 % [facility] Eos Pct 2.4 % [facility] Baso Pct 0.7 % [facility] NRBC Abs 0.00 0.00 - 0.01 K/cumm [facility] 09/06/2024 9:52 AM SHEARING SUPERVISOR 09/06/2024 11:49 AM SHEARING SUPERVISOR Narrative [facility] - 09/07/2024 8:35 AM SHEARING SUPERVISOR Testing performed at [facility] - [address] [place] [address]. us Jayesh Betancur MD LAB BLOOD ORDERABLES Final R esult [facility] * Pro B-type natriuretic peptide (09/06/2024 9:52 AM SHEARING SUPERVISOR) NT-proBNP <50 <=300 pg/mL Comment: Interpretive Comments: [...] Revised Date: 2018. Blood 09/06/2024 9:52 AM SHEARING SUPERVISOR 09/06/2024 11:28 AM SHEARING SUPERVISOR us Jayesh Betancur MD LAB BLOOD ORDERABLES Final R esult [facility] Department [place] [address] * Iron profile w/ IBC (09/06/2024 9:52 AM SHEARING SUPERVISOR) Iron 96 30 - 160 ug/dL [facility] TIBC 292 220 - 420 ug/dL [facility] Iron saturation 32.9 11.0 - 52.0 % [facility] Blood 09/06/2024 9:52 AM SHEARING SUPERVISOR 09/06/2024 11:49 AM SHEARING SUPERVISOR Jayesh Betancur MD LAB BLOOD ORDERABLES Final R esult [facility] * Apolipoprotein B, serum (09/06/2024 9:52 AM SHEARING SUPERVISOR) Apolipoprotein B 90 mg/dL [place] [facility] Comment: REFERENCE VALUE Desirable: <90 Above Desirable: 90-99 Borderline high: 100-119 High: 120-139 Very high: > or = 140 Test Performed by: [place] [address] Campus Manager: Yusuf Lorenzo Ph.D.; CLIA# [id number] Blood 09/06/2024 9:52 AM SHEARING SUPERVISOR 09/06/2024 1:01 PM SHEARING SUPERVISOR Jayesh Betancur MD LAB BLOOD ORDERABLES Final R esult Performing Organization Address [facility] Co de Phone Number [facility] Department [place] [address] [place] [facility] * Lipoprotein a (LPa) (09/06/2024 9:52 AM SHEARING SUPERVISOR) Lipoprotein (A) 37.9 <=75.0 nmol/L [facility] [...] FDA, although they are provided by the pricing lead and widely accepted as the preferred units for reporting. [facility] is regulated under CLIA as qualified to perform high-complexity testing. Blood 09/06/2024 9:52 AM SHEARING SUPERVISOR 09/06/2024 11:49 AM SHEARING SUPERVISOR Jayesh Betancur MD LAB BLOOD ORDERABLES Final R esult Performing Organization Address [facility] Co de Phone Number [facility] * (ABNORMAL) Hemoglobin A1c (09/06/2024 9:52 AM SHEARING SUPERVISOR) HbA1c 6.1(H) 5.1 - 5.6 % [facility] Comment: HBA1C 5.1 - 5.6 = NORMAL HBA1C 5.7 - 6.4 = PREDIABETES HBA1C >=6.5 = PROVISIONAL DIAGNOSIS OF DIABETES Estimated Average Glucose 128 mg/dL [facility] Blood 09/06/2024 9:52 AM SHEARING SUPERVISOR 09/06/2024 11:49 AM SHEARING SUPERVISOR Jayesh Betancur MD LAB BLOOD ORDERABLES Final R [facility] Performing Organization Address [facility] de Phone Number [facility] * (ABNORMAL) Lipid panel (09/06/2024 9:52 AM SHEARING SUPERVISOR) Triglycerides 161(H) <150 mg/dL [facility] Comment: Desirable: <150 mg/dL, fasting <175 mg/dL, non-fasting Persistently elevated triglycerides may enhance atherosclerotic cardiovascular disease. Total Cholesterol 172 <200 mg/dL [facility] Total HDL-C Direct 36(L) >50 mg/dL [facility] Comment: A low HDL-C may be inidcative of metabolic syndrome and enhance atherosclerotic cardiovascular disease risk. Non-HDL cholesterol 136 <220 mg/dL [facility] Friedewald LDL Chol 104 <190 mg/dL [facility] Comment: The Friedewald equation is accurate in most patients when triglycerides are less than 150 mg/dL. Consider the use of non-HDL-C or Apo B to help estimate atherosclerotic cardiovascular diesase risk if triglycerides are elevated. Blood 09/06/2024 9:52 AM SHEARING SUPERVISOR 09/06/2024 11:49 AM SHEARING SUPERVISOR Narrative [facility] - 09/06/2024 1:32 PM SHEARING SUPERVISOR Current interpretive data was last updated August 01, 2021. For adults ages 40-79, the ACC/AHA recommends discussing your 10-year atherosclerotic cardiovascular disease risk with your health care provider. https://www.acc.org/ASCVDApp us Jayesh Betancur MD LAB BLOOD ORDERABLES Final R esult [facility] * (ABNORMAL) Comprehensive metabolic panel (09/06/2024 9:52 AM SHEARING SUPERVISOR) Total Protein 9.0(H) 6.1 - 8.4 g/dL [...] [facility] Blood 09/06/2024 9:52 AM SHEARING SUPERVISOR 09/06/2024 11:49 AM SHEARING SUPERVISOR us Jayesh Betancur MD LAB BLOOD ORDERABLES Final R esult [facility] from Last 3 Months Insurance Travel Appeal [facility] Care Teams Programmer Analyst Health It Relationship Specialty Start Date End Date Mary Vazquez MD PCP - General Family Practice 03/05/20
--- OUTSIDE RECORDS SUMMARY | 2024-11-16 12:01 | XMS_ITS | Encounter Summary ---
Author Organization [facility] Address [address] [place] [address] Care Team Providers Care Bottom Loader Name Role Phone Artemio Gaviria MD Primary Care Provider [phone] Encounter Details Date Type Department Care Team (Late st Contact Info) Description 04/23/2022 Lab Requisition [facility] DermPath Lab [address] [facility] [place] [address] Renaldo Mun[place] [address] Social History Tobacco Use Types Packs/Day Years [...] AM CDT) Case Report Dermatopathology Report Case: [id number] Authorizing Provider: Renaldo Muniz MD Collected: 04/22/2022 12:00 AM Ordering Location: [facility] DermPath Lab Received: 04/23/2022 04:41 PM [...] specimen consists of a shave biopsy measuring [id number]. Jar 0. 2 3:29 PM CDT DERMATOPATHOLOGY [...] determined by the Dermatopathology Laboratory at [facility], directed by Dr. Lashanda Parks. These tests need not be, and therefore are not, approved by the [place] Food and Drug Administration. The tests are used for clinical purposes. Billing Codes Specimen Charges Stain Charges 33538 1 2 3:29 PM CDT DERMATOPATHOLOGY LABORATORY Embedded Images 2 3:29 PM CDT DERMATOPATHOLOGY LABORATORY Pathology/Cytolog y TISSUE SPECIMEN FROM SKIN / Unknown 04/22/2022 04/23/2022 4:41 PM CDT Renaldo Muniz MD LAB - PATHOLOGY/CYTO LOGY ORDERABLES DERMATOPATHOLOGY LABORATORY [facility] - Department of Dermatology [address], [address] [phone] documented in this encounter Visit Diagnoses Not on filedocumented in this encounter Care Teams Bottom Loader Relationship Specialty Start Date End Date Artemio Gaviria MD [address] [place] [address] PCP - General 06/26/19 documented as of this encounter
[2024-11-16 14:41] LABS: Alanine Aminotransferase 15 U/L (6-35); Albumin Level 3.6 g/dL (3.5-5.1); Alkaline Phosphatase 97 U/L (38-126); Anion Gap 9 mmol/L (4-12); Aspartate Amino Transferase 29 U/L (14-36); Bilirubin,Total 0.5 mg/dL (0.2-1.3); Blood Urea Nitrogen 21 mg/dL (7-17); Calcium 8.7 mg/dL (8.4-10.2); Carbon Dioxide 33 mmol/L (22-30); Chloride 100 mmol/L (98-107); Estimated Glomerular Filt Rate > 60; Glucose 92 mg/dL (65-110); Potassium 4.3 mmol/L (3.4-5.0); Sodium 142 mmol/L (137-145)
== END 2024-11-16 11:02 | disposition home or self-care (01) ==
LOC: ANHGOSHLAB 11:02
PROVIDERS: PCP Family Medicine; Visit Provider Family Medicine
DX: E87.5 Hyperkalemia (principal); I10 Essential (primary) hypertension
CPT/HCPCS: 36415; 80053

== ENCOUNTER 2024-12-22 02:10 | Day surgery (SDC) | payer OTHER, SELFPAY ==
[2024-12-11 14:37] VITALS: BMI 46.4
--- OUTSIDE RECORDS SUMMARY | 2024-12-22 02:13 | XMS_ITS | Encounter Summary ---
Author Organization [facility] Address [address] [facility] [place] [address] Care Team Providers Care Licensing Court Magistrate Name Role Phone Artemio Gaviria MD Primary Care Provider [phone] Encounter Details Date Type Department Care Team (Late st Contact Info) Description 04/23/2022 Lab Requisition [facility] DermPath Lab [address] [facility] [address] [place] [address] Social History Tobacco Use Types Packs/Day Years Used Date Smoking Tobacco: Never Assessed Comments Unknown Sex and Gender Information Value Date Recorded Sex Assigned at Not on file Legal Sex Female 4:03 AM CDT Gender Identity Not on file Sexual Orientation Not on file documented as of this encounter Plan of Treatment Not on file documented as of this encounter Procedures Procedure Name Priority Date/Time Associated Diagnosis Comments DERMATOPATHOLOGY Routine 04/22/2022 12:0 0 AM CDT documented in this encounter Results * DERMATOPATHOLOGY (04/22/2022 12:00 AM CDT) Case Report Dermatopathology Report Case: [id number] Authorizing Provider: Renaldo Muniz MD Collected: 04/22/2022 12:00 AM Ordering Location: [facility] DermPath Lab Received: 04/23/2022 04:41 PM Pathologist: [...] specimen consists of a shave biopsy measuring [id number]. Jar 0. 2 3:29 PM CDT DERMATOPATHOLOGY [...] characteristic determined by the Dermatopathology Laboratory at [facility], directed by Dr. Lashanda Parks. These tests need not be, and therefore are not, approved by the [place] Food and Drug Administration. The tests are used for clinical purposes. Billing Codes Specimen Charges Stain Charges 32211 1 2 3:29 PM CDT DERMATOPATHOLOGY LABORATORY Embedded Images 2 3:29 PM CDT DERMATOPATHOLOGY LABORATORY Pathology/Cytolog y TISSUE SPECIMEN FROM SKIN / Unknown 04/22/2022 04/23/2022 4:41 PM CDT us Renaldo Muniz MD LAB - PATHOLOGY/CYTOLOGY ORD ERABLES Final Result DERMATOPATHOLOGY LABORATORY [facility] - Department of Dermatology [facility] Medicine [address] [place] [address], [address] [place] [address], [facility] [phone] documented in this encounter Visit Diagnoses Not on filedocumented in this encounter Care Teams Licensing Court Magistrate Relationship Specialty Start Date End Date Artemio Gaviria MD [address] [place] [address] PCP - General 06/26/19 documented as of this encounter
--- OUTSIDE RECORDS SUMMARY | 2024-12-22 02:14 | XMS_ITS | Encounter Summary ---
Author Organization [facility] Address [address] [facility] [place] [address] Care Team Providers Care Adhesive Bonding Machine Operator Name Role Phone Artemio Gaviria MD Primary Care Provider [phone] Encounter Details Date Type Department Care Team (Late st Contact Info) Description 12/21/2019 Lab Requisition [facility] DermPath Lab [address] [place] [address] Renaldo Muniz MD [place] [address] Social History Tobacco Use Types Packs/Day Years [...] AM CDT) Case Report Dermatopathology Report Case: [id number] Authorizing Provider: Renaldo Muniz MD Collected: 12/20/2019 12:00 AM Ordering Location: [facility] DermPath Lab Received: 12/21/2019 12:58 PM Pathologist: [...] specimen consists of a shave biopsy measuring 4x1u7ix. Jar 0. Specimen B: Received is one formalin filled container labeled with the patient's name and designated left upper back above scar. The specimen consists of a shave biopsy measuring [id number]. Jar 0. Specimen C: Received is one formalin filled container labeled with the patient's name and designated left med upper back above scar. The specimen consists of a shave biopsy measuring [id number]. Jar 0. Specimen D: Received is one formalin filled container. The specimen consists of a shave biopsy measuring [id number]. Jar 0. 0 2:28 PM CDT DERMATOPATHOLOGY [...] in appearance and matures with depth. (Compound Jeol's Nevus or Compound Dysplastic Nevus) Specimen B. [...] characteristic determined by the Dermatopathology Laboratory at [facility], directed by Dr. Lashanda Parks. These tests need not be, and therefore are not, approved by the [place] Food and Drug Administration. The tests are used for clinical purposes. Billing Codes Specimen Charges Stain Charges [address]2904 37766 81788 63021 1 1 1 1 0 2:28 PM [...] PM CDT Renaldo Muniz MD LAB - PATHOLOGY/CYTOLOGY ORD ERABLES Final Result DERMATOPATHOLOGY LABORATORY [facility] - Department of Dermatology [address] [place] [address] 5th Floor Lab [address] [phone] documented in this encounter Visit Diagnoses Not on filedocumented in this encounter Care Teams Adhesive Bonding Machine Operator Relationship Specialty Start Date End Date Artemio Gaviria MD [address] [place] [address] PCP - General 06/26/19 documented as of this encounter
--- OUTSIDE RECORDS SUMMARY | 2024-12-22 02:14 | XMS_ITS | Encounter Summary ---
Author Organization [facility] Address [address] [facility] [place] [address] Care Team Providers Care Vocational Rehabilitation Teacher Name Role Phone Artemio Gaviria MD Primary Care Provider [phone] Encounter Details Date Type Department Care Team (Late st Contact Info) Description 10/12/2019 Lab Requisition [facility] DermPath Lab [address] [place] [address] Renaldo Muniz [place] [address] Social History Tobacco Use Types Packs/Day Years [...] Comments DERMATOPATHOLOGY Routine 10/11/2019 12:0 0 AM COSTUME SPECIALIST documented in this encounter Results * DERMATOPATHOLOGY (10/11/2019 12:00 AM COSTUME SPECIALIST) Case Report Dermatopathology Report Case: [id number] Authorizing Provider: Renaldo Muniz MD Collected: 10/11/2019 12:00 AM Ordering Location: [facility] Derm[facility] Lab Received: 10/12/2019 12:56 PM Pathologist: Reny Clark MD Specimens: A) - Skin, right parapsinal lower back B) - Skin, right mid lat back C) - Skin, right lower back 0 2:11 PM [facility] DERMATOPATHOLOGY LABORATORY Final Diagnosis Specimen A. SKIN, [...] WITH ARCHITECTURAL DISORDER) (D22.5) 0 2:11 PM COSTUME SPECIALIST DERMATOPATHOLOGY LABORATORY Clinical History A-C: R/O dysplastic lentinginous nevus 0 2:11 PM [facility] DERMATOPATHOLOGY LABORATORY Gross Description Specimen A: Received [...] 10x7x1 mm. Jar 0. 0 2:11 PM [facility] DERMATOPATHOLOGY LABORATORY Microscopic Description Specimen A. SKIN, [...] or Compound Dysplastic Nevus) 0 2:11 PM COSTUME SPECIALIST DERMATOPATHOLOGY LABORATORY Disclaimer An external and internal [...] purposes. Billing Codes Specimen Charges Stain Charges 47318 43322 87926 1 1 1 0 2:11 PM COSTUME SPECIALIST DERMATOPATHOLOGY LABORATORY Embedded Images 0 2:11 PM COSTUME SPECIALIST DERMATOPATHOLOGY LABORATORY Pathology/Cytology TISSUE SPECIMEN FROM SKIN / Unknown 10/11/2019 10/12/2019 12:56 PM COSTUME SPECIALIST Miscellaneous samples (specimen) TISSUE SPECIMEN FROM SKIN / Unknown 10/11/2019 10/12/2019 12:56 PM COSTUME SPECIALIST Miscellaneous samples (specimen) TISSUE SPECIMEN FROM SKIN / Unknown 10/11/2019 10/12/2019 12:56 PM COSTUME SPECIALIST Renaldo Muniz MD LAB - PATHOLOGY/CYTOLOGY ORD ERABLES Final Result DERMATOPATHOLOGY LABORATORY [facility] - Department of Dermatology [facility] [facility], 5th [place] [address], [facility] [phone] documented in this encounter Visit Diagnoses Not on filedocumented in this encounter Care Teams Vocational Rehabilitation Teacher Relationship Specialty Start Date End Date Artemio Gaviria MD [address] [place] [address] PCP - General 06/26/19 documented as of this encounter
--- OUTSIDE RECORDS SUMMARY | 2024-12-22 02:14 | XMS_ITS | Encounter Summary ---
Author Organization [facility] Address [address] [place] [address] Care Team Providers Care Order Checker Packer Processer Name Role Phone Artemio Gaviria MD Primary Care Provider Encounter Details Date Type Department Care Team (Late st Contact Info) Description 01/15/2021 Lab Requisition [facility] [address] [address] Renaldo Muniz [place] [address] Social History Tobacco Use Types Packs/Day Years [...] AM CDT) Case Report Dermatopathology Report Case: [id number] Authorizing Provider: Renaldo Muniz MD Collected: 01/14/2021 12:00 AM Ordering Location: [facility] Received: 01/15/2021 01:48 PM Pathologist: Grace Norton MD Specimens: A) - Skin, left upper lat back B) - Skin, right lower back C) - Skin, right lower back lat D) - Skin, below right ear 4:27 PM [facility] Final Diagnosis Specimen A. SKIN, [...] NEVUS WITH ARCHITECTURAL DISORDER) (D22.4) 4:27 PM [facility] Clinical History A-D: R/O dys nevus. 4:27 PM [facility] Gross Description Specimen A: Received is one formalin filled container labeled with the patient's name and designated left upper lat back. The specimen consists of a shave biopsy measuring [id number]. Jar 0. Specimen B: Received is one formalin filled container labeled with the patient's name and designated right lower back. The specimen consists of a shave biopsy measuring [id number]. Jar 0. Specimen C: Received is one formalin filled container labeled with the patient's name and designated right lower back lat. The specimen consists of a shave biopsy measuring [id number]. Jar 0. Specimen D: Received is one formalin filled container labeled with the patient's name and designated below right ear. The specimen consists of a shave biopsy measuring [id number]. Jar 0. 4:27 PM [facility] Microscopic Description Specimen A. SKIN, [...] determined by the Dermatopathology Laboratory at [facility], directed by Dr. Lashanda Parks. These tests need not be, and therefore are not, approved by the [place] Food and Drug Administration. The tests are used for clinical purposes. Billing Codes Specimen Charges Stain Charges 87640 12462 67777 30425 1 1 1 1 [id number] 86682 64914 46807 1 1 1 1 1 4:27 PM [...] PATHOLOGY/CYTOLOGY ORD ERABLES Final Result DERMATOPATHOLOGY LABORATORY [facility] - Department of Dermatology [facility] [address] [place] [address], [address] [phone] documented in this encounter Visit Diagnoses Not on filedocumented in this encounter Care Teams Order Checker Packer Processer Relationship Specialty Start Date End Date Artemio Gaviria MD [address] [place] [id number] PCP - General 06/26/19 documented as of this encounter
--- OUTSIDE RECORDS SUMMARY | 2024-12-22 02:14 | XMS_ITS | Encounter Summary ---
Author Organization [facility] Address [address] [facility] [place] [address] Care Team Providers Care Malt House Loader Name Role Phone Artemio Gaviria MD Primary Care Provider [phone] Encounter Details Date Type Department Care Team (Late st Contact Info) Description 06/12/2021 Lab Requisition [facility] [address] [facility] [place] [address] Renadlo [place] [address] Social History Tobacco Use Types Packs/Day Years [...] AM CDT) Case Report Dermatopathology Report Case: [id number] Authorizing Provider: Renaldo Muniz MD Collected: 06/11/2021 12:00 AM Ordering Location: [facility] Received: 06/12/2021 01:27 PM Pathologist: Twila Helms MD Specimens: A) - Skin, left superior medial buttock B) - Skin, right flank in abdomen fold C) - Skin, right lateral lower abd fold 10:50 PM [facility] DERMATOPATHOLOGY LABORATORY Final Diagnosis Specimen A. SKIN, left superior medial buttock: COMPOUND NEVUS WITH CONGENITAL FEATURES, IRRITATED (D22.5) Specimen B. 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 SKIN, right lateral lower abd fold: COMPOUND MELANOCYTIC NEVUS, IRRITATED (D22.5) 10:50 PM T DERMATOPATHOLOGY LABORATORY Clinical History A-C: R/O dys nevus 10:50 PM CDT DERMATOPATHOLOGY LABORATORY Gross Description Specimen [...] measuring 18x5x1 mm. Jar 0. 10:50 PM CDT DERMATOPATHOLOGY LABORATORY Microscopic Description Specimen [...] characteristic determined by the Dermatopathology Laboratory at [facility], directed by Dr. Lashanda Parks. These tests need not be, and therefore are not, approved by the [place] Food and Drug Administration. The tests are used for clinical purposes. Billing Codes Specimen Charges Stain Charges 54682 22256 37275 1 1 1 69477 78081 98502 1 1 1 10:50 PM CDT DERMATOPATHOLOGY LABORATORY Embedded Images 10:50 PM CDT DERMATOPATHOLOGY LABORATORY Pathology/Cytology TISSUE SPECIMEN FROM SKIN / Unknown 06/11/2021 06/12/2021 1:27 PM CDT Miscellaneous samples (specimen) TISSUE SPECIMEN FROM SKIN / Unknown 06/11/2021 06/12/2021 1:27 PM CDT Miscellaneous samples (specimen) TISSUE SPECIMEN FROM SKIN / Unknown 06/11/2021 06/12/2021 1:27 PM CDT us Renaldo Muniz MD LAB - PATHOLOGY/CYTOLOGY ORD ERABLES Final Result DERMATOPATHOLOGY LABORATORY [facility] - Department of Dermatology [facility] [address] [place] [address], [address] [place] [address], [facility] [phone] documented in this encounter Visit Diagnoses Not on filedocumented in this encounter Care Teams Malt House Loader Relationship Specialty Start Date End Date Artemio Gaviria MD [address] [place] [address] PCP - General 06/26/19 documented as of this encounter
--- OUTSIDE RECORDS SUMMARY | 2024-12-22 02:14 | XMS_ITS | Referral Summary ---
Author Organization [facility] Address [address] [place] [address] Care Team Providers Care Restaurant Maintenance Technician Name Role Phone Mary Vazquez MD Primary Care Provider Encounters Date Type Department Care Team Description 12/14/2024 10:15 AM CDT - 12/14/2024 11:59 PM CDT Hospital Encounter [id number] [place] [phone] Discharge Disposition: Discharge to home or self care 12/14/2024 9:30 AM CDT Office Visit [facility] Rhe[facility]ology at [facility] [address] [place] [address] Ania Easley MD Systemic lupus erythematosus with other organ involvement, unspecified SLE type (HCC) (Primary Dx); Antiphospholipid antibody positive; Encounter for medication monitoring; Encounter for long-term (current) use of medications; Malignant melanoma of torso excluding breast (HCC); Stage 3 chronic kidney disease, unspecified whether stage 3a or 3b CKD (HCC) 12/04/2024 Telephone [facility] Cardiology [facility] [facility] [address]th [place] [address] [place] [address] Jayesh Betancur MD 11/09/2024 Telephone [facility] Cardiology [facility] [address]th [place] [address] [place] [address] Kristen Huizar 10/31/2024 Telephone [facility] Cardiology [address] [place] [address] [place] [address] Jayesh Betancur MD 10/31/2024 Orders Only [facility] Scanning, Provider 10/27/2024 Orders Only [facility] Scanning, Provider 10/25/2024 Telephone [facility] Cardiology [address] [facility] [address] [place] [address] [place] [address] Jayesh Betancur MD 10/24/2024 Telephone [facility] Cardiology [address] [facility] [address] [place] [address] [place] [address] Jayesh Betancur MD from Last 3 Months Allergies Active Allergy Reactions Criticality Noted Date Comments Amoxicillin Rash Medium 02/08/2018 Sulfa (Sulfonamide Antibiotics) Hives,Rash,Redness Medium Medications cyanocobalamin (Vitamin B-12) 1,000 mcg tabletIndications :Prevention of Vitamin B12 Deficiency Take 1 tablet (1,000 mcg total) by mouth daily Active ferrous sulfate ER 324 mg (65 mg iron) EC tabletIndications :Iron Deficiency Anemia Take 65 mg by mouth Active aspirin 81 mg chewable tablet Take 1 tablet (81 mg total) by mouth daily Active empagliflozin (JARDIANCE) 10 mg tablet Take 1 tablet (10 mg total) by mouth daily 90 tablet 3 4 Active valsartan (DIOVAN) 80 mg tablet Take 1 tablet (80 mg total) by mouth daily 30 tablet 11 5 09/06/19 26 Active rosuvastatin (CRESTOR) 10 mg tablet Take 1 tablet (10 mg total) by mouth daily 90 tablet 3 5 09/06/19 26 Active spironolactone (ALDACTONE) 25 mg tablet Take 1 tablet (25 mg total) by mouth daily 90 tablet 3 5 Active furosemide (LASIX) 40 mg tablet Take 0.5 tablets (20 mg total) by mouth 3 (three) times a day 135 tablet 3 5 Active hydroxychloroquin e (PLAQUENIL) 200 mg tabletIndications :Systemic lupus erythematosus with other organ involvement, unspecified SLE type (HCC),Antiphospho lipid antibody positive,Encounte r for medication monitoring,Encoun ter for long-term (current) use of medications,Varun michelle melanoma of torso excluding breast (HCC) Take 1 tablet (200 mg total) by mouth 2 (two) times a day 60 tablet 5 Active hydroxychloroquin e (PLAQUENIL) 200 mg tablet TAKE 1 TABLET (200 MG TOTAL) BY MOUTH 2 TIMES A DAY. 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 Was on AZA-stopped due to being stable. Has history of pleural effusion, was following with Hydrographical Technical Officer, but needs to establish with a new one. 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 Gender Identity Female 01/18/2022 11:01 PM CDT Sexual Orientation Straight 01/18/2022 11 :01 PM CDT Last Filed Vital Signs Vital Sign Reading Time Taken Comments Blood Pressure 110/78 12/14/2024 9:40 AM CDT Pulse 68 12/14/2024 9:40 AM CDT Temperature 36.5 C (97.7 F) 07/20/2023 7:58 AM REGULATORY AFFAIRS STRATEGY SPECIALIST Respiratory Rate 14 01/26/2023 8:26 AM CDT Oxygen Saturation 98% 12/14/2024 9:40 AM CDT Inhaled Oxygen Concentration - - Weight 109.3 kg (241 lb) 12/14/2024 9:40 AM CDT Height 162.6 cm (5' 4 ) 12/14/2024 9:40 AM CDT Body Mass Index 41.37 12/14/2024 9:40 AM CDT Plan of Treatment Not on file Procedures Procedure Name Priority Date/Time Associated Diagnosis Comments EGFR Routine 12/14/2024 10:23 AM CDT Systemic lupus erythematosus with other organ involvement, unspecified SLE type (HCC) Antiphospholipid antibody positive Encounter for medication monitoring Encounter for long-term (current) use of medications Malignant melanoma of torso excluding breast (HCC) DIFFERENTIAL AUTO Routine 12/14/2024 10: 23 AM CDT Systemic lupus erythematosus with other organ involvement, unspecified SLE type (HCC) Antiphospholipid antibody positive Encounter for medication monitoring Encounter for long-term (current) use of medications Malignant melanoma of torso excluding breast (HCC) CBC WITH AUTO DIFFERENTIAL Routine 12/14/2024 10:23 AM CDT Systemic lupus erythematosus with other organ involvement, unspecified SLE type (HCC) Antiphospholipid antibody positive Encounter for medication monitoring Encounter for long-term (current) use of medications Malignant melanoma of torso excluding breast (HCC) COMPREHENSIVE METABOLIC PANEL Routine 12/14/2024 10:23 AM CDT Systemic lupus erythematosus with other organ involvement, unspecified SLE type (HCC) Antiphospholipid antibody positive Encounter for medication monitoring Encounter for long-term (current) use of medications Malignant melanoma of torso excluding breast (HCC) CRP (ACUTE PHASE) Routine 12/14/2024 10: 23 AM CDT Systemic lupus erythematosus with other organ involvement, unspecified SLE type (HCC) Antiphospholipid antibody positive Encounter for medication monitoring Encounter for long-term (current) use of medications Malignant melanoma of torso excluding breast (HCC) ERYTHROCYTE SEDIMENTATION RATE Routine 12/14/2024 10:23 AM CDT Systemic lupus erythematosus with other organ involvement, unspecified SLE type (HCC) Antiphospholipid antibody positive Encounter for medication monitoring Encounter for long-term (current) use of medications Malignant melanoma of torso excluding breast (HCC) C3 COMPLEMENT Routine 12/14/2024 10:23 AM CDT Systemic lupus erythematosus with other organ involvement, unspecified SLE type (HCC) Antiphospholipid antibody positive Encounter for medication monitoring Encounter for long-term (current) use of medications Malignant melanoma of torso excluding breast (HCC) C4 COMPLEMENT Routine 12/14/2024 10:23 AM CDT Systemic lupus erythematosus with other organ involvement, unspecified SLE type (HCC) Antiphospholipid antibody positive Encounter for medication monitoring Encounter for long-term (current) use of medications Malignant melanoma of torso excluding breast (HCC) ANTI-DOUBLE STRANDED DNA ANTIBODIES Routine 12/14/2024 10:23 AM CDT Systemic lupus erythematosus with other organ involvement, unspecified SLE type (HCC) Antiphospholipid antibody positive Encounter for medication monitoring Encounter for long-term (current) use of medications Malignant melanoma of torso excluding breast (HCC) PROTEIN / CREATININE RATIO, URINE, RANDOM Routine 12/14/2024 10:23 AM CDT Systemic lupus erythematosus with other organ involvement, unspecified SLE type (HCC) Antiphospholipid antibody positive Encounter for medication monitoring Encounter for long-term (current) use of medications Malignant melanoma of torso excluding breast (HCC) URINALYSIS AND REFLEX TO MICROSCOPIC AND CULTURE Routine 12/14/2024 10:23 AM CDT Systemic lupus erythematosus with other organ involvement, unspecified SLE type (HCC) Antiphospholipid antibody positive Encounter for medication monitoring Encounter for long-term (current) use of medications Malignant melanoma of torso excluding breast (HCC) SCAN - LABS 10/31/2024 SCAN - LABS 10/27/2024 from Last 3 Months Results * Anti-double stranded DNA abs (12/14/2024 10:23 AM CDT) dsDNA Ab 3.0 <=4.0 IUnits/mL Comment: Interpretive Data Negative: < or = 4 IUnits/mL Indeterminate: 5 - 9 IUnits/mL Positive: > or = 10 IUnits/mL Current interpretive data was last revised on 2017. Testing performed by: [facility], [address] [place]., [address] Blood 12/14/2024 10:2 3 AM CDT 12/14/2024 4:25 PM CDT us Ania Easley MD LAB BLOOD ORDERABL ES Final Result [facility] [address] Department [place] [address] * eGFR (12/14/2024 10:23 AM CDT) eGFR 87 >=60 mL/min/1. 73 m2 Comment: Interpretive Data Reference Interval Normal >/= 90 mL/min/1.73m2 Mildly decreased* 60 - 89 mL/min/1.73m2 Mildly to moderately decreased 45 - 59 mL/min/1.73m2 Moderately to severely decreased 30 - 44 mL/min/1.73m2 Severely decreased 15 - 29 mL/min/1.73m2 Kidney Failure < 15 mL/min/1.73m2 *Relative to young adult level Estimated glomerular filtration rate is determined by the 2020 CKD-EPI equation recommended by the National Kidney Foundation (A Unifying Approach to GFR Estimation: Recommendations of the NKF-ASK Task Force on Reassessing the Inclusion of Race in Diagnosing Kidney Disease, JASN 2020). The CKD-EPI equation should not be used for patients with unstable renal function and has not been validated in children and those over 70. Current interpretive data was last reviewed 2021. Blood 12/14/2024 10:2 3 AM CDT 12/14/2024 12:54 PM CDT us Ania Easley MD LAB BLOOD ORDERABL ES Final Result [facility] [address] Department [place] [address] * (ABNORMAL) Differential, auto (12/14/2024 10:23 AM CDT) Neutrophil abs 1.34(L) 1.50 - 6.50 K/cumm Imm gran abs 0.01 0.00 - 0.10 K/cumm [facility] Lymphocyte abs 0.85 0.80 - 3.30 K/cumm [facility] Monocyte abs 0.35 0.20 - 0.80 K/cumm [facility] Eosinophil abs 0.09 0.00 - 0.50 K/cumm [facility] Basophil abs 0.03 0.00 - 0.10 K/cumm [facility] Neutrophil pct 50.2 % [facility] Comment: Interpretive Data Percent cell count reference ranges are not reported, since discordance with absolute values may lead to misinterpretation of CBC data. Current Interpretive Data was last revised on 2017. Imm gran pct 0.4 % [facility] Comment: Interpretive Data Percent cell count reference ranges are not reported, since discordance with absolute values may lead to misinterpretation of CBC data. Current Interpretive Data was last revised on 2017. Lymphocyte pct 31.8 % [facility] Comment: Interpretive Data Percent cell count reference ranges are not reported, since discordance with absolute values may lead to misinterpretation of CBC data. Current Interpretive Data was last revised on 2017. Monocyte pct 13.1 % [facility] Comment: Interpretive Data Percent cell count reference ranges are not reported, since discordance with absolute values may lead to misinterpretation of CBC data. Current Interpretive Data was last revised on 2017. Eosinophil pct 3.4 % [facility] Comment: Interpretive Data Percent cell count reference ranges are not reported, since discordance with absolute values may lead to misinterpretation of CBC data. Current Interpretive Data was last revised on 2017. Basophil pct 1.1 % [facility] Comment: Interpretive Data Percent cell count reference ranges are not reported, since discordance with absolute values may lead to misinterpretation of CBC data. Current Interpretive Data was last revised on 2017. Blood 12/14/2024 10:2 3 AM CDT 12/14/2024 12:54 PM CDT Ania Easley MD LAB BLOOD ORDERABL ES Final Result Performing Organization Address [facility] Co de Phone Number [facility] [address] [place] [address] * C4 complement (12/14/2024 10:23 AM CDT) Complement C4 23 10 - 40 mg/dL Blood 12/14/2024 10:2 3 AM CDT 12/14/2024 12:54 PM CDT Ania Easley MD LAB BLOOD ORDERABL ES Final Result Performing Organization Address [facility] Phone Number [facility] [address] [place] [address] * (ABNORMAL) Urinalysis reflex to microscopic and culture Urine, clean voided (12/14/2024 10:23 AM CDT) Color, ur Straw Yellow Clarity, ur Clear Clear [facility] Specific gravity, ur 1.011 1.003 - 1.030 [facility] pH, urine 6.0 [facility] Comment: Interpretive Data U rine pH is affected by diet, medications, systemic acid-base disturbances, and renal tubular function. pH may affect urinary stone formation. For example, urine pH below 6.0 may help reduce the tendency for calcium phosphate stones and pH greater than 6.0 may reduce the tendency for uric acid stone formation. Source: [facility] [employer] Current Interpretive Data was last revised on 2017 Protein, ur ql Negative Negative [facility] Glucose, ur ql 4+(A) Negative [facility] Ketones, ur Negative Negative [facility] Bilirubin, ur Negative Negative [facility] Blood, ur Negative Negative [facility] Urobilinogen, ur <2.0 <2.0 mg/dL [facility] Nitrite, ur Negative Negative [facility] Leukocyte esterase, ur Negative Negative [facility] UA reflex comment Reflex conditions for microscopic UA and culture not met. [facility] Urine, clean voided 12/14/2024 10:23 AM CDT 12/14/2024 10:23 AM CDT us Ania Easley MD LAB MICROBIOLOGY - GENERAL ORDERABLES Final Result Performing Organization Address [facility]/ZIP Co de Phone Number [facility] [address] [employer] [place] [address] * (ABNORMAL) CBC with auto differential (12/14/2024 10:23 AM CDT) WBC 2.67(L) 3.80 - 9.90 K/cumm Hgb 14.0 11.9 - 15.5 g/dL [facility] Hct 46.7(H) 35.6 - 45.5 % [facility] Plt 159 150 - 400 K/cumm [facility] MPV 12.2 9.1 - 12.3 fL [facility] RBC 5.23(H) 3.90 - 5.20 M/cumm [facility] MCV 89.3 81.3 - 96.4 fL [facility] MCH 26.8(L) 27.1 - 33.3 pg [facility] MCHC 30.0(L) 32.3 - 35.7 g/dL [facility] RDW CV 13.8 11.1 - 14.9 % [facility] RDW SD 45.0 35.7 - 48.1 fL [facility] NRBC abs 0.00 0.00 - 0.01 K/cumm [facility] Blood 12/14/2024 10:2 3 AM CDT 12/14/2024 12:54 PM CDT Ania Easley MD LAB BLOOD ORDERABL ES Final Result Performing Organization Address City/[facility]/ZIP Co de Phone Number [facility] [address] [place] [address] * Protein / creatinine ratio, urine, random (12/14/2024 10:23 AM CDT) Protein, ur, quant 4.2 mg/dL Comment: Interpretive Data No reference range established. Current interpretive data was last revised 2019. Creatinine Ur 39.7 mg/dL [facility] Comment: Interpretive Data No reference range established. Current interpretive data was last revised 2019. Protein/creatinin e ratio 105.8 0.0 - 180.0 mg/g CR [facility] Urine 12/14/2024 10:2 3 AM CDT 12/14/2024 10:23 AM CDT Ania Easley MD LAB URINE ORDERABL ES Final Result Performing Organization Address City/[facility]/ZIP Co de Phone Number [facility] [address] [facility] [place] [address] * (ABNORMAL) Erythrocyte sedimentation rate (12/14/2024 10:23 AM CDT) Pathologist [facility] Erythrocyte sedimentation rate 38(H) 1 - 30 mm/hr Blood 12/14/2024 10:2 3 AM CDT 12/14/2024 12:54 PM CDT Ania Easley MD LAB BLOOD ORDERABL ES Final Result [facility] [address] [place] [address] * C3 complement (12/14/2024 10:23 AM CDT) Pathologist [facility] Complement C3 158 90 - 180 mg/dL Blood 12/14/2024 10:2 3 AM CDT 12/14/2024 12:54 PM CDT Ania Easley MD LAB BLOOD ORDERABL ES Final Result Performing Organization Address City/[facility]/ZIP Co de Phone Number [facility] [address] Department [place] [address] * (ABNORMAL) CRP (acute phase) (12/14/2024 10:23 AM CDT) [facility] CRP 26.3(H) <=10.0 mg/L Blood 12/14/2024 10:2 3 AM CDT 12/14/2024 12:54 PM CDT Ania Easley MD LAB BLOOD ORDERABL ES Final Result Performing Organization Address [facility] Co de Phone Number [facility] [address] Department [place] [address] * Comprehensive metabolic panel (12/14/2024 10:23 AM CDT) [facility] Sodium 144 135 - 145 mmol/L Potassium, pl 4.3 3.3 - 4.9 mmol/L [facility] Chloride 104 97 - 110 mmol/L [facility] CO2 29 22 - 32 mmol/L [facility] Anion gap 11 2 - 15 mmol/L [facility] BUN 22 6 - 25 mg/dL [facility] Creatinine 0.82 0.60 - 1.10 mg/dL [facility] Glucose 87 70 - 199 mg/dL [facility] Comment: Interpretive Data Fasting glucose >/= 126 mg/dl is diagnostic for diabetes. Fasting is defined as no caloric intake for at least 8 hours. Fasting glucose between 100 mg/dl to 125 mg/dl is diagnostic of prediabetes. In a patient with classic symptoms of hyperglycemia or hyperglycemic crisis, a random glucose >/= 200 mg/dl is diagnostic for diabetes. In the absence of unequivocal hyperglycemia, results should be confirmed by repeat testing. The classification and Diagnosis of Diabetes Diabetes Care 2021; 46: S19-S40. Current interpretive data was last revised 2022. Calcium 9.7 8.5 - 10.3 mg/dL [facility] Bilirubin, total 0.4 0.1 - 1.2 mg/dL [facility] Protein, pl 8.5 6.5 - 8.5 g/dL [facility] Albumin 4.4 3.5 - 5.0 g/dL [facility] Alk phos 93 40 - 130 Units/L [facility] ALT 15 7 - 45 Units/L [facility] AST 22 10 - 45 Units/L [facility] Blood 12/14/2024 10:2 3 AM CDT 12/14/2024 12:54 PM CDT us Ania Easley MD LAB BLOOD ORDERABL ES Final Result [facility] [address] Department [place] [address] * SCAN - LABS (10/31/2024) us Provider Scanning Final Result * SCAN - LABS (10/27/2024) us Provider Scanning Final Result from Last 3 Months Insurance [facility] Care Teams Restaurant Maintenance Technician Relationship Specialty Start Date End Date Mary Vazquez MD PCP - General Family Practice 03/05/20
--- OUTSIDE RECORDS SUMMARY | 2024-12-22 02:14 | XMS_ITS | Clinical Summary ---
Author Organization [facility] Address [address] [place] [address] Care Team Providers Care Documentation Analyst Name Role Phone Artemio Gaviria MD Primary Care Provider [phone] Source Comments [facility],non-cass medical center Affiliates and Associated Physician Practices is amultiple site organization consisting of ambulatory clinics and hospital sitesin [place], [place], [place] and [place]. This disclosure is being madepursuant to the Care Everywhere program and may not contain all information available regarding this patient. Last updated 18.[facility] [employer]air Social History Tobacco Use Types Packs/Day Years [...] VACCINE ( - 2023-2 5 season) 2024 PNEUMOCOCCAL VACCINE 50+ (1 of 1 - PCV) 2024 ZOSTER VACCINE (1 of 2) 2024 DEPRESSION SCREENING 08/30/2024 INFLUENZA VACCINE (Season Ended) 2025 HIB VACCINE Aged Out No longer eligi [...] patient's age to complete this topic Insurance [facility] Member Subscriber Plan / Payer (Ef fective 2019-Present) Name:Mara Us Relation to Subscriber:Spouse Name:ANDREMENDEZ Subscriber ID:Not on file (Home) Address: [address] [place] [id number] Payer ID:[id number] (NAIC) Type:PPO Address: [facility] [id number] [place] [id number] Care Teams Documentation Analyst Relationship Specialty Start Date End Date Artemio Gaviria MD [address] [place] [address] PCP - General 06/26/19
--- OUTSIDE RECORDS SUMMARY | 2024-12-22 02:14 | XMS_ITS | Clinical Summary ---
Author Organization [facility] sur[facility] Address [address] [place] [address] [place] [address] Care Team Providers Care U.[place]. Senator Name Role Phone Mary Vazquez MD Primary Care Provider Allergies Active Allergy Reactions Criticality Noted Date Comments Amoxicillin Rash Medium 02/08/2018 Penicillins Rash Low 02/02/2019 Sulfa (Sulfonamide Antibiotics) Hives,Rash,Unknown High 01/31/2019 Sulfamethoxazole-Trimethoprim Rash Low 2018 Medications triamterene-hyd roCHLOROthiazid e (DYAZIDE) 37.5-25 mg capsule Take 1 Capsule by mouth daily early intervention specialist. Active hydroxychloroqu ine (PLAQUENIL) 200 mg tablet [...] Half a pill daily per Lupus Dr. Aslhy Florez MD @@[facility] Active albuterol sulfate 90 mcg/Actuation inhaler TAKE [...] Comments Blood Pressure 122/78 07/16/2022 3:27 PM CORRUGATED SHEET MATERIAL SHEETER Pulse 98 07/16/2022 3:27 PM CORRUGATED SHEET MATERIAL SHEETER Temperature 37.2 C (98.9 F) 07/16/2022 3:27 PM CORRUGATED SHEET MATERIAL SHEETER Respiratory Rate 16 07/16/2022 3:27 PM CORRUGATED SHEET MATERIAL SHEETER Oxygen Saturation 96% 07/16/2022 3:27 PM CORRUGATED SHEET MATERIAL SHEETER Inhaled Oxygen Concentration - - Weight 134.9 kg (297 lb 6.4 oz) 07/16/2022 3:27 PM CORRUGATED SHEET MATERIAL SHEETER Height 154.9 cm (5' 1 ) 01/15/2022 3:09 PM CDT Body Mass Index 56.19 01/15/2022 3:09 PM CDT Plan of Treatment Health Maintenance Due Date Last Done Comments DTAP/TDAP/TD VACCINES (1 - Tdap) 1993 HEPATITIS B VACCINES (1 of 3 - 19+ 3-dose series) 1993 ZOSTER VACCINE (1 of 2) 1993 HPV/Cotest (21-29) 1995 CERVICAL CANCER SCREENING 2004 HPV/Cotest (30-65) 2004 PAP SMEAR 2004 BREAST CANCER SCREENING 2014 COLORECTAL SCREENING 2019 Colorectal Cancer Screening 2019 FIT-DNA Q 3 years 2019 FIT/FOBT Q 1 year 2019 Flex Sig/CT Colonography Q 5 years 2019 INFLUENZA VACCINE (#1) 2024 2, 06/19/2020, 06/18/2020, Additional history exists Insurance [employer] TRADITIONAL Care Teams U.[place]. Senator Relationship Specialty Start Date End Date Mary Vazquez MD [address] [place] [address] PCP - General Family Practice 06/30/19
--- OUTSIDE RECORDS SUMMARY | 2024-12-22 02:14 | XMS_ITS | CONTINUITY OF CARE DOCUMENT ---
Author Name bala mckenna Address Unknown Organization [facility] Address [address] [place] [address] [place] [address] Phone [phone] Care Team Providers Care Shipping Services Sales Representative Name Role Phone Darya CONTEH, Adonay Unavailable [phone] Adonay Lackey MD Unavailable [phone] George CONTEH, Mary Unavailable [phone] INSURANCE PROVIDERS Payer name Policy type / Coverage type [employer] party ID HE[employer] AND FAMILY SERVICES Medicaid 4 [id number]
--- OUTSIDE RECORDS SUMMARY | 2024-12-22 02:14 | XMS_ITS | Clinical Summary ---
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 Was on AZA-stopped due to being stable. Has history of pleural effusion, was following with Tile Layer Supervisor, but needs to establish with a new one. Sister has SLE with LN s/p Cytoxan (Mindy Arguello) Encounters Date Type Department Care Team Description 12/14/2024 10:15 AM CDT - 12/14/2024 11:59 PM CDT Hospital Encounter [facility] [address] [place] [phone] Discharge Disposition: Discharge to home or self care 12/14/2024 9:30 AM CDT Office Visit [facility] Rheumatology at [facility] [address] [place] [phone] Ania Easley MD Systemic lupus erythematosus with other organ involvement, unspecified SLE type (HCC) (Primary Dx); Antiphospholipid antibody positive; Encounter for medication monitoring; Encounter for long-term (current) use of medications; Malignant melanoma of torso excluding breast (HCC); Stage 3 chronic kidney disease, unspecified whether stage 3a or 3b CKD (HCC) 12/04/[address] [facility] 8th [place] [address] [place] [address] Jayesh Betancur MD 11/09/[address] Advanced [address] [place] [address] [place] [address] Kristen Huizar 10/31/[address] Medicine 8th [place] [address] [place] [address] Jayesh Betancur MD 10/31/2024 Orders Only [facility] Scanning, Provider 10/27/2024 Orders Only [facility] Scanning, Provider 10/25/[address] [place] [address] [place] [address] Jayesh Betancur MD 10/24/2024 Telephone [facility] Cardiology [address] [place] [address] Medicine 8th [place] [address] [place] [address] Jayesh Betancur MD from Last 3 Months Immunizations Immunization Administration [...] 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 [place] Level IV + one node N O [...] on file Legal Sex Female 6:34 AM [employer]RI[employer]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 Gender Identity Female 01/18/2022 11:01 PM CDT Sexual Orientation Straight 01/18/2022 11 :01 PM CDT Obstetrics History Last Filed Vital Signs Vital Sign Reading Time Taken Comments Blood Pressure 110/78 12/14/2024 9:40 AM CDT Pulse 68 12/14/2024 9:40 AM CDT Temperature 36.5 C (97.7 F) 07/20/2023 7:58 AM 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 Testing performed by: [facility], [address] [facility] [place] [address] Blood 12/14/2024 10:2 3 AM CDT 12/14/2024 4:25 PM CDT us Ania Easley MD LAB BLOOD ORDERABL ES Final Result [facility] [address] Department [place] [address] * eGFR (12/14/2024 10:23 AM CDT) eGFR [...] MD LAB BLOOD ORDERABL ES Final Result [facility] [address] Department [place] [address] * (ABNORMAL) Differential, auto (12/14/2024 10:23 AM CDT) Neutrophil abs 1.34(L) 1.50 - 6.50 K/cumm Imm gran abs 0.01 0.00 - 0.10 K/cumm [facility] Lymphocyte abs 0.85 0.80 - 3.30 K/cumm [facility] Monocyte abs 0.35 0.20 - 0.80 K/cumm [facility] Eosinophil abs 0.09 0.00 - 0.50 K/cumm [facility] Basophil abs 0.03 0.00 - 0.10 K/cumm [facility] Neutrophil pct 50.2 % [facility] Comment: Interpretive Data Percent cell count reference ranges are not reported, since discordance with absolute values may lead to misinterpretation of CBC data. Current Interpretive Data was last revised on 2017. Imm gran pct 0.4 % [facility] Comment: Interpretive Data Percent cell count reference ranges are not reported, since discordance with absolute values may lead to misinterpretation of CBC data. Current Interpretive Data was last revised on 2017. Lymphocyte pct 31.8 % [facility] Comment: Interpretive Data Percent cell count reference ranges are not reported, since discordance with absolute values may lead to misinterpretation of CBC data. Current Interpretive Data was last revised on 2017. Monocyte pct 13.1 % [facility] Comment: Interpretive Data Percent cell count reference ranges are not reported, since discordance with absolute values may lead to misinterpretation of CBC data. Current Interpretive Data was last revised on 2017. Eosinophil pct 3.4 % [facility] Comment: Interpretive Data Percent cell count reference ranges are not reported, since discordance with absolute values may lead to misinterpretation of CBC data. Current Interpretive Data was last revised on 2017. Basophil pct 1.1 % [facility] Comment: Interpretive Data Percent cell count reference ranges are not reported, since discordance with absolute values may lead to misinterpretation of CBC data. Current Interpretive Data was last revised on 2017. Blood 12/14/2024 10:2 3 AM CDT 12/14/2024 12:54 PM CDT Ania Easley MD LAB BLOOD ORDERABL ES Final Result Performing Organization Address City/[facility] Co de Phone Number [facility] [address] Department [place] [address] * C4 complement (12/14/2024 10:23 AM CDT) Complement C4 23 10 - 40 mg/dL Blood 12/14/2024 10:2 3 AM CDT 12/14/2024 12:54 PM CDT Ania Easley MD LAB BLOOD ORDERABL ES Final Result Performing Organization Address City/[facility]/ZIP Co de Phone Number [facility] [address] Department [place] [address] * (ABNORMAL) Urinalysis reflex to microscopic and culture Urine, clean voided (12/14/2024 10:23 AM CDT) Color, ur Straw Yellow Clarity, ur Clear Clear [facility] Specific gravity, ur 1.011 1.003 - 1.030 [facility] pH, urine 6.0 [facility] Comment: Interpretive Data U rine pH is affected by diet, medications, systemic acid-base disturbances, and renal tubular function. pH may affect urinary stone formation. For example, urine pH below 6.0 may help reduce the tendency for calcium phosphate stones and pH greater than 6.0 may reduce the tendency for uric acid stone formation. Source: [facility] Current Interpretive Data was last revised on 2017 Protein, ur ql Negative Negative [facility] Glucose, ur ql 4+(A) Negative [facility] Ketones, ur Negative Negative [facility] Bilirubin, ur Negative Negative [facility] Blood, ur Negative Negative [facility] Urobilinogen, ur <2.0 <2.0 mg/dL [facility] Nitrite, ur Negative Negative [facility] Leukocyte esterase, ur Negative Negative [facility] UA reflex comment Reflex conditions for microscopic UA and culture not met. [facility] Urine, clean voided 12/14/2024 10:23 AM CDT 12/14/2024 10:23 AM CDT us Ania Easley MD LAB MICROBIOLOGY - GENERAL ORDERABLES Final Result [facility] [address] [place] [address] * (ABNORMAL) CBC with auto differential (12/14/2024 10:23 AM CDT) WBC 2.67(L) 3.80 - 9.90 K/cumm Hgb 14.0 11.9 - 15.5 g/dL [facility] Hct 46.7(H) 35.6 - 45.5 % [facility] Plt 159 150 - 400 K/cumm [facility] MPV 12.2 9.1 - 12.3 fL [facility] RBC 5.23(H) 3.90 - 5.20 M/cumm [facility] MCV 89.3 81.3 - 96.4 fL [facility] MCH 26.8(L) 27.1 - 33.3 pg [facility] MCHC 30.0(L) 32.3 - 35.7 g/dL [facility] RDW CV 13.8 11.1 - 14.9 % [facility] RDW SD 45.0 35.7 - 48.1 fL [facility] NRBC abs 0.00 0.00 - 0.01 K/cumm [facility] Blood 12/14/2024 10:2 3 AM CDT 12/14/2024 12:54 PM CDT us Ania Easley MD LAB BLOOD ORDERABL ES Final Result Performing Organization Address [facility] Co de Phone Number [facility] [address] Department [place] [address] * Protein / creatinine ratio, urine, random (12/14/2024 10:23 AM CDT) Protein, ur, quant 4.2 mg/dL Comment: Interpretive Data No reference range established. Current interpretive data was last revised 2019. Creatinine Ur 39.7 mg/dL [facility] Comment: Interpretive Data No reference range established. Current interpretive data was last revised 2019. Protein/creatinin e ratio 105.8 0.0 - 180.0 mg/g CR [facility] Urine 12/14/2024 10:2 3 AM CDT 12/14/2024 10:23 AM CDT us Ania Easley MD LAB URINE ORDERABL ES Final Result Performing Organization Address City/[facility] Co de Phone Number [facility] [address] [facility] [address] [place] [place] [address] * (ABNORMAL) Erythrocyte sedimentation rate (12/14/2024 10:23 AM CDT) Erythrocyte sedimentation rate 38(H) 1 - 30 mm/hr Blood 12/14/2024 10:2 3 AM CDT 12/14/2024 12:54 PM CDT Ania Easley MD LAB BLOOD ORDERABL ES Final Result Performing Organization Address [facility] Co de Phone Number [facility] [address] [facility] [address] [place] [address] * C3 complement (12/14/2024 10:23 AM CDT) Pathologist [facility] Complement C3 158 90 - 180 mg/dL Blood 12/14/2024 10:2 3 AM CDT 12/14/2024 12:54 PM CDT Ania Easley MD LAB BLOOD ORDERABL ES Final Result Performing Organization Address [facility] Co de Phone Number [facility] [address] [facility] [address] [place] [place] [address] * (ABNORMAL) CRP (acute phase) (12/14/2024 10:23 AM CDT) Pathologist [facility] CRP 26.3(H) <=10.0 mg/L Blood 12/14/2024 10:2 3 AM CDT 12/14/2024 12:54 PM CDT us Ania Easley MD LAB BLOOD ORDERABL ES Final Result Performing Organization Address City/[facility]/ZIP Co de Phone Number [facility] [address] [facility] [address] [place] [place] [address] * Comprehensive metabolic panel (12/14/2024 10:23 AM CDT) Sodium 144 135 - 145 mmol/L Potassium, pl 4.3 3.3 - 4.9 mmol/L [facility] Chloride 104 97 - 110 mmol/L [facility] CO2 29 22 - 32 mmol/L [facility] Anion gap 11 2 - 15 mmol/L [facility] BUN 22 6 - 25 mg/dL [facility] Creatinine 0.82 0.60 - 1.10 mg/dL [facility] Glucose 87 70 - 199 mg/dL [facility] Comment: Interpretive Data Fasting glucose >/= 126 [...] 2022. Calcium 9.7 8.5 - 10.3 mg/dL [facility] Bilirubin, total 0.4 0.1 - 1.2 mg/dL [facility] Protein, pl 8.5 6.5 - 8.5 g/dL [facility] Albumin 4.4 3.5 - 5.0 g/dL [facility] Alk phos 93 40 - 130 Units/L [facility] ALT 15 7 - 45 Units/L [facility] AST 22 10 - 45 Units/L [facility] Blood 12/14/2024 10:2 3 AM CDT 12/14/2024 12:54 PM CDT Ania Easley MD LAB BLOOD ORDERABL ES Final Result [facility] [address] Department [place] [address] * SCAN - LABS (10/31/2024) Provider Scanning Final Result * SCAN - LABS (10/27/2024) Provider Scanning Final Result from Last 3 Months Insurance [employer] [facility] Care Teams Assistant Oceanographer Relationship Specialty Start Date End Date Mary Vazquez MD PCP - General Family Practice 03/05/20
--- OUTSIDE RECORDS SUMMARY | 2024-12-22 02:14 | XMS_ITS | Clinical Summary ---
Author Organization [facility] Address [address] [place] [address] Care Team Providers Care Wrap Checker Name Role Phone Ary Wooten LABEL DRIER Primary Care Provider [phone] Social History Tobacco Use Types Packs/Day Years [...] Vaccine ( - 2023-2 5 season) 2024 Pneumococcal Vaccine: 50+ Ye ars (1 of 1 - PCV) 2024 Zoster Vaccines (1 of 2) 2024 Meningococcal B Vaccine Aged Out No l onger eligible based on patient's age to complete this topic Meningococcal Vaccine Aged Out No trace danielle eligible based on patient's age to complete this topic RSV Immunizations Under 20 Months Aged Out No longer eligible based on patient's age to complete this topic Insurance MEDICAID Care Teams Wrap Checker Relationship Specialty Start Date End Date Ary Wooten FNP [facility] [place] [address] PCP - General NURSE PRACTITIONER 04/04/24
[2024-12-22 07:03] VITALS: BP 133/80; PULSE 78; RESP 20; TEMP 36.2; O2SAT 94; BMI 45.1
[2024-12-22] MEDS: LACTATED RINGERS 1,000 ML 150 ML IV CONT (07:07)
--- NOTE | 2024-12-22 07:08 | P.PNAN_ITS ---
Anes - Initial Pre Proc Eval Procedure: Operation Date: 12/22/24 08:00 Proposed Procedures p Screening Colonoscopy - Amando Lopez MD Date/Time: 12/22/24 07:08 Surgeon: Amando Lopez MD Pre Op Diagnosis: malignant neoplasm of colon Patient Data Age: 49 Gender: F Height: 1.55 m Weight: 108.4 kg Last Vital Signs Temp 36.2 C L 12/22/24 07:03 Pulse 78 12/22/24 07:03 Resp 20 12/22/24 07:03 BP 133/80 12/22/24 07:03 Pulse Ox 94 12/22/24 07:03 O2 Del Method Room Air 12/22/24 07:03 Allergies Allergy/AdvReac Type Severity Reaction Status Date / Time Penicillins AdvReac Mild Rash Verified 12/22/24 07:01 Sulfa (Sulfonamide AdvReac Mild Rash Verified 12/22/24 07:01 Antibiotics) Home Medications ?Medication ?Instructions ?Recorded ?Confirmed ?Type hydroxychloroquine 200 mg tablet 200 mg PO Q12H 07/17/19 12/22/24 History cyanocobalamin (vitamin B-12) 1,000 mcg PO DAILY 03/18/21 12/22/24 History 1,000 mcg tablet (Vitamin B-12) empagliflozin 10 mg tablet 10 mg PO DAILY #90 tabs 08/18/24 12/22/24 Rx (Jardiance) furosemide 20 mg tablet 60 mg (3 x 20 mg) PO BID 30 days 08/18/24 12/22/24 Rx #180 tabs rosuvastatin 10 mg tablet 10 mg PO QHS 09/27/24 12/22/24 History valsartan 80 mg tablet 80 mg PO DAILY 09/27/24 12/22/24 History spironolactone 25 mg tablet 12.5 mg (1/2 x 25 mg) PO QAM 30 11/06/24 12/22/24 Rx days #30 tabs ferrous sulfate 325 mg (65 mg 325 mg PO DAILY #90 tabs 11/16/24 12/22/24 Rx iron) tablet,delayed release Patient hx anesthesia problems: none Family hx anesthesia problems: none Results Review: All pre-operative results and documents have been reviewed as part of the pre- operative evaluation. PMFSH Past Medical History Medical History Chronic venous insufficiency of lower extremity Morbid obesity (Unknown) BMI 47 on 11/01/2024 Restrictive lung disease secondary to obesity Noted to be severe on PFTs from 2014 Moderate tricuspid regurgitation Diastolic heart failure Chronic hypercapnic respiratory failure Lymphedema of both lower extremities Port-A-Cath in place (~2018) Essential (primary) hypertension (Unknown) SLE (systemic lupus erythematosus) (Unknown) STAS (obstructive sleep apnea) Polysomnogram 06/2024 demonstrated moderate obstructive sleep apnea with recommended BiPAP of 18/8 with 3 L of bleed in O2 Malignant melanoma of upper back (~05/2019) Surgical History Surgical History History of removal of Port-a-Cath 2020 [place] teeth removed (~1989) Hx of section (~2000) History of skin surgery melanoma - 06/22/2019 Family History Family History Father Hypertension Sibling Lupus Social History Social History Social History: Patient lives at home with her parents. She works for [employer]. She has 1 daughter who was in her 20. She ambulates without assistance. She is a lifelong nonsmoker. She occasionally drinks alcohol once every couple months. She denies illicit substance use. Code status: Full code Surrogate decision maker: Daughter Smoking status: Never smoker Second hand tobacco smoke exposure: No Alcohol intake: never Substance use: never Substance use type: does not use Do You Feel Safe in your Home?: Yes Lack of Transportation: No Lack of Food: Never True Current Housing: I Have Housing Concerned About Future Housing: No Difficulty Paying Gas/Electric Bills: No Difficulty Paying for Meds: No Currently Unemployed: No Education: Associate Degree Difficulty w/ Childcare or Family Care: No Living arrangements: with family Gender identity (if verbalized by the patient): Female Sexual Orientation (if Verbalized by the Patient): Straight or Heterosexual Spiritual care concerns: No Anes - Eval Final PreProcedure Day of Procedure 12/22/24 07:08 Patient weight: morbidly obese Heart: regular rate and rhythm Lungs: clear to auscultation Airway: Mallampati scale class II Neurological: alert and oriented Last oral intake: >/= 8 hours ASA classification: IV Emergent: no Anesthetic plan: proceed Anesthesia type and monitoring: general GIVS and standard monitoring Results Review: All pre-operative results and documents have been reviewed as part of the pre- operative evaluation. Informed Consent: The patient's anesthetic plan and its attendant risks and benefits were discussed with the patient/family/POA. Questions were solicited and answers provided to the satisfaction of the patient/family/POA.
--- NOTE | 2024-12-22 07:56 | PM.HPGS ---
History of Present Illness History of Present Illness Consent: Risks, benefits, and alternatives have been discussed and questions answered. Patient agrees to proceed with procedure. Chief complaint: malignant neoplasm of colon Narrative: Mara Us is a 49 year old female here for screening colonoscopy Review of Systems Review of Systems: All systems reviewed & are unremarkable except as noted in HPI and below [facility]LY [facility] Past Medical History Medical History (Updated 12/22/24 @ 07:57 by Amando Lopez MD) Colon cancer screening Chronic venous insufficiency of lower extremity Morbid obesity (Unknown) BMI 47 on 11/01/2024 Restrictive lung disease secondary to obesity Noted to be severe on PFTs from 2014 Moderate tricuspid regurgitation Diastolic heart failure Chronic hypercapnic respiratory failure Lymphedema of both lower extremities Port-A-Cath in place (~2018) Essential (primary) hypertension (Unknown) SLE (systemic lupus erythematosus) (Unknown) STAS (obstructive sleep apnea) Polysomnogram 06/2024 demonstrated moderate obstructive sleep apnea with recommended BiPAP of 18/8 with 3 L of bleed in O2 Malignant melanoma of upper back (~05/2019) Surgical History Surgical History History of removal of Port-a-Cath 2020 What Cheer teeth removed (~1989) Hx of section (~2000) History of skin surgery melanoma - 06/22/2019 Family History Family History Father Hypertension Sibling Lupus Social History Social History Social History: Patient lives at home with her parents. She works for [employer]. She has 1 daughter who was in her 20. She ambulates without assistance. She is a lifelong nonsmoker. She occasionally drinks alcohol once every couple months. She denies illicit substance use. Code status: Full code Surrogate decision maker: Daughter Smoking status: Never smoker Second hand tobacco smoke exposure: No Alcohol intake: never Substance use: never Substance use type: does not use Do You Feel Safe in your Home?: Yes Lack of Transportation: No Lack of Food: Never True Current Housing: I Have Housing Concerned About Future Housing: No Difficulty Paying Gas/Electric Bills: No Difficulty Paying for Meds: No Currently Unemployed: No Education: Associate Degree Difficulty w/ Childcare or Family Care: No Living arrangements: with family Gender identity (if verbalized by the patient): Female Sexual Orientation (if Verbalized by the Patient): Straight or Heterosexual Spiritual care concerns: No Meds Home Medications and Allergies Home Medications ?Medication ?Instructions ?Recorded ?Confirmed ?Type hydroxychloroquine 200 mg tablet 200 mg PO Q12H 07/17/19 12/22/24 History cyanocobalamin (vitamin B-12) 1,000 mcg PO DAILY 03/18/21 12/22/24 History 1,000 mcg tablet (Vitamin B-12) empagliflozin 10 mg tablet 10 mg PO DAILY #90 tabs 08/18/24 12/22/24 Rx (Jardiance) furosemide 20 mg tablet 60 mg (3 x 20 mg) PO BID 30 days 08/18/24 12/22/24 Rx #180 tabs rosuvastatin 10 mg tablet 10 mg PO QHS 09/27/24 12/22/24 History valsartan 80 mg tablet 80 mg PO DAILY 09/27/24 12/22/24 History spironolactone 25 mg tablet 12.5 mg (1/2 x 25 mg) PO QAM 30 11/06/24 12/22/24 Rx days #30 tabs ferrous sulfate 325 mg (65 mg 325 mg PO DAILY #90 tabs 11/16/24 12/22/24 Rx iron) tablet,delayed release Allergies Allergy/AdvReac Type Severity Reaction Status Date / Time Penicillins AdvReac Mild Rash Verified 12/22/24 07:01 Sulfa (Sulfonamide AdvReac Mild Rash Verified 12/22/24 07:01 Antibiotics) Vital Signs Vital Signs - 24 hr 12/22/24 07:03 Temperature 97.1 F L Pulse Rate 78 Respiratory Rate 20 Blood Pressure 133/80 Pulse Oximetry 94 Oxygen Delivery Room Air Exam Const: General: comfortable and no acute distress HENMT: Face/Nose/Sinus: Normal nares present Eyes: General: appearance normal, both eyes and all related structures Neck: Neck: no JVD Resp: Auscultation: clear to auscultation bilaterally Cardio: Rate: regular rate Rhythm: regular rhythm GI: Inspection: non-distended GI Palp: Yes Soft to palpation Skin: General skin exam: normal color Neuro: General: gait normal Speech: normal speech Extrem: General: normal to inspection Psych: Mental Status: mental status grossly normal Assessment and Plan Assessment and plan (1) Colon cancer screening: Code(s): Z12.11 - Encounter for screening for malignant neoplasm of colon Status: Acute Assessment and Plan: colonoscopy
[2024-12-22 08:13] VITALS: BP 81/49; PULSE 84; RESP 30; O2SAT 96
[2024-12-22 08:23] VITALS: BP 94/58; PULSE 70; RESP 23; O2SAT 95
[2024-12-22 08:33] VITALS: BP 101/58; PULSE 66; RESP 24; O2SAT 95
== END 2024-12-22 08:41 | disposition home or self-care (01) ==
PROVIDERS: PCP Family Medicine; Referring Provider Family Medicine; Visit Provider Internal Medicine Gastroenterology
PROC: 0DJD8ZZ Inspection of Lower Intestinal Tract, Via Natural or Artificial Opening Endoscopic (ICD-10-PCS; CPT 45378; principal; 2024-12-22 08:00)
DX: Z12.11 Encounter for screening for malignant neoplasm of colon (principal); K51.40 Inflammatory polyps of colon without complications; K64.8 Other hemorrhoids; K57.30 Diverticulosis of large intestine without perforation or abscess without bleeding; I11.0 Hypertensive heart disease with heart failure; I50.22 Chronic systolic (congestive) heart failure; J96.12 Chronic respiratory failure with hypercapnia; M32.9 Systemic lupus erythematosus, unspecified; G47.33 Obstructive sleep apnea (adult) (pediatric); I87.2 Venous insufficiency (chronic) (peripheral); I07.1 Rheumatic tricuspid insufficiency; J98.4 Other disorders of lung; E66.01 Morbid (severe) obesity due to excess calories; Z68.42 Body mass index [BMI] 45.0-49.9, adult; Z79.84 Long term (current) use of oral hypoglycemic drugs; Z98.890 Other specified postprocedural states; Z85.820 Personal history of malignant melanoma of skin
CPT/HCPCS: 45385; 88305; J2704; J7120

== ENCOUNTER 2025-03-27 10:14 | Outpatient (CLI) | payer OTHER, SELFPAY ==
--- OUTSIDE RECORDS SUMMARY | 2025-03-27 10:27 | XMS_ITS | Encounter Summary ---
Author Organization [facility] Health Address [address] [place] [address] Care Team Providers Care Unpaid Intern Name Role Phone Artemio Gaviria MD Primary Care Provider [phone] Encounter Details Date Type Department Care Team (Late st Contact Info) Description 01/15/2021 Lab Requisition [facility] DermPath Lab [address] [place] [id number] Renaldo Muniz MD [address] [address] Social History Tobacco Use Types Packs/Day Years [...] AM CDT) Case Report Dermatopathology Report Case: [id number] Authorizing Provider: Renaldo Muniz MD Collected: 01/14/2021 12:00 AM Ordering Location: [facility] DermPath Lab Received: 01/15/2021 01:48 PM Pathologist: Grace Norton MD Specimens: A) - Skin, left upper lat back B) - Skin, right lower back C) - Skin, right lower back lat D) - Skin, below right ear 4:27 PM T DERMATOPATHOLOGY LABORATORY Final Diagnosis Specimen [...] NEVUS WITH ARCHITECTURAL DISORDER) (D22.4) 4:27 PM T DERMATOPATHOLOGY LABORATORY at 1627 CDT Clinical History A-D: R/O dys nevus. 4:27 PM T DERMATOPATHOLOGY LABORATORY Gross Description Specimen A: Received is one formalin filled container labeled with the patient's name and designated left upper lat back. The specimen consists of a shave biopsy measuring [id number]. Jar 0. Specimen B: Received is one formalin filled container labeled with the patient's name and designated right lower back. The specimen consists of a shave biopsy measuring [id number]. Jar 0. Specimen C: Received is one formalin filled container labeled with the patient's name and designated right lower back lat. The specimen consists of a shave biopsy measuring [id number]. Jar 0. Specimen D: Received is one formalin filled container labeled with the patient's name and designated below right ear. The specimen consists of a shave biopsy measuring [id number]. Jar 0. 4:27 PM T DERMATOPATHOLOGY LABORATORY [...] characteristic determined by the Dermatopathology Laboratory at [facility], directed by Dr. Lashanda Parks. These tests need not be, and therefore are not, approved by the [place] Food and Drug Administration. The tests are used for clinical purposes. Billing Codes Specimen Charges Stain Charges 13463 01712 77271 95851 1 1 1 1 97805 47338 29122 89182 1 1 1 1 1 4:27 PM [...] PATHOLOGY/CYTOLOGY ORD ERABLES Final Result DERMATOPATHOLOGY LABORATORY [facility] - Department of Dermatology [facility] [address] [place] [address], [address] [phone] documented in this encounter Visit Diagnoses Not on filedocumented in this encounter Care Teams Unpaid Intern Relationship Specialty Start Date End Date Artemio Gaviria MD [address] [place] [id number] PCP - General 06/26/19 documented as of this encounter
--- OUTSIDE RECORDS SUMMARY | 2025-03-27 10:27 | XMS_ITS | Clinical Summary ---
Author Organization [facility] Address [address] [address] Care Team Providers Care Transportation Driver Name Role Phone Artemio Gaviria MD Primary Care Provider [phone] Source Comments [facility],non-owned Affiliates and Associated Physician Practices is amultiple site organization consisting of ambulatory clinics and hospital sitesin [place], [place], [place] and [place]. This disclosure is being madepursuant to the Care Everywhere program and may not contain all information available regarding this patient. Last updated 18.[facility] [place] Social History Tobacco Use Types Packs/Day Years [...] SCREENING 1974 LIPID TESTING 1974 MAMMOGRAM 1974 HIV SCREENING 1989 HEPATITIS C SCREENING 05/14/1992 DTAP/TDAP/TD VACCINES (1 - Tdap) 1993 HEPATITIS B VACCINE (1 of 3 - 19+ 3-dose series) 1993 PAP SMEAR 1995 COVID-19 VACCINE ( - 2023-2 5 season) 2024 PNEUMOCOCCAL VACCINE 50+ (1 of 1 - PCV) 2024 ZOSTER VACCINE (1 of 2) 2024 DEPRESSION SCREENING 08/30/2024 INFLUENZA VACCINE (#1) 2025 HIB VACCINE Aged Out No longer [...] patient's age to complete this topic Insurance [facility] SELF PAY NO INSURANCE Member Subscriber Plan / Payer (Ef fective for All Dates) Name:Mara Powell Member ID:Not on file Relation to Subscriber:Not on file Name:RAMSES POWELLHermes Heath Subscriber ID:Not on file (Home) Address: [place] [address] Payer ID:Not on file Group ID:Not on file Type:Self Pay Address: [place], [place] Care Teams Transportation Driver Relationship Specialty Start Date End Date Artemio Gaviria MD [address] [place] [address] PCP - General 06/26/19
--- OUTSIDE RECORDS SUMMARY | 2025-03-27 10:27 | XMS_ITS | Encounter Summary ---
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 Gender Identity Female 01/18/2022 11:01 PM CDT Sexual Orientation Straight 01/18/2022 11 :01 PM CDT documented as of this encounter Plan of Treatment Not on file documented as of this encounter Procedures Procedure Name Priority Date/Time Associated Diagnosis Comments CARDIOLOGY DOCUMENT SCAN 03/25/2024 documented in this encounter Results * Cardiology Document Scan (03/25/2024) Anatomical Region Laterality Modality Other us Provider Scanning CV CARDIAC SERVICES PROCEDURES Final Result documented in this encounter Visit Diagnoses Not on filedocumented in this encounter Care Teams Sighter Relationship Specialty Start Date End Date Mary Vazquez MD PCP - General Family Practice 03/05/20 documented as of this encounter
--- OUTSIDE RECORDS SUMMARY | 2025-03-27 10:27 | XMS_ITS | Encounter Summary ---
Author Organization [facility] Health Address [address] [facility] [place] [address] Care Team Providers Care Mortgage Loan Interviewer Name Role Phone Artemio Gaviria MD Primary Care Provider [phone] Encounter Details Date Type Department Care Team (Late st Contact Info) Description 04/23/2022 Lab Requisition [facility] DermPath Lab [address] [place] [phone] Renaldo Muniz MD [address] [place] [address] Social History Tobacco Use Types Packs/Day [...] AM CDT) Case Report Dermatopathology Report Case: [id number] Authorizing Provider: Renaldo Muniz MD Collected: 04/22/2022 12:00 AM Ordering Location: [facility] DermPath Lab Received: 04/23/2022 04:41 PM Pathologist: Reny Clark MD Specimen: Skin, below left popliteal fossa 3:29 PM CDT DERMATOPATHOLOGY LABORATORY Final Diagnosis Specimen A. SKIN, below left popliteal fossa: COMPOUND MELANOCYTIC NEVUS, IRRITATED (D22.72) 2 3:29 PM CDT DERMATOPATHOLOGY LABORATORY at 1529 CDT Clinical History R/O Dysplastic Nevus 2 3:29 PM CDT DERMATOPATHOLOGY LABORATORY Gross Description Specimen A: Received is one formalin filled container labeled with the patient's name and designated below left popliteal fossa. The specimen consists of a shave biopsy measuring [id number]. Jar 0. 2 3:29 PM CDT DERMATOPATHOLOGY [...] purposes. Billing Codes Specimen Charges Stain Charges [id number] 1 2 3:29 PM CDT DERMATOPATHOLOGY LABORATORY Embedded Images 2 3:29 PM CDT DERMATOPATHOLOGY LABORATORY Pathology/Cytolog y TISSUE SPECIMEN FROM SKIN / Unknown 04/22/2022 04/23/2022 4:41 PM CDT us Renlado Muniz MD LAB - PATHOLOGY/CYTOLOGY ORD ERABLES Final Result DERMATOPATHOLOGY LABORATORY [facility] - Department of Dermatology [facility] Medicine [address] [place] [address], [address] [place] [address], [facility] [phone] documented in this encounter Visit Diagnoses Not on filedocumented in this encounter Care Teams Mortgage Loan Interviewer Relationship Specialty Start Date End Date Artemio Gaviria MD [address] [place] [phone] PCP - General 06/26/19 documented as of this encounter
--- OUTSIDE RECORDS SUMMARY | 2025-03-27 10:27 | XMS_ITS | Referral Summary ---
Author Organization [facility] Address [address] [place] [address] Care Team Providers Care Environmental Safety Specialist Name Role Phone Mary Vazquez MD Primary Care Provider Encounters Date Type Department Care Team Description 03/21/2025 Results Follow-Up [facility] Rheumatology at [address] [place] [address] Chest High Resolution WO Contrast 03/12/2025 4:23 PM CDT - 03/12/2025 11:59 PM CDT Hospital Encounter [address] [address] Systemic lupus erythematosus with other organ involvement, unspecified SLE type (HCC); Antiphospholipid antibody positive; Abnormal PFT Discharge Disposition: Discharge to home or self care 03/09/[address] [address] Jhonny Daugherty 02/27/2025 Telephone [facility] Rheumatology at [address], [place] [address] Chest Denied 02/13/2025 Results Follow-Up [facility] Rheumatology at [address], [place] [address] Ania Easley MD Pulmonary Function Test - 02/12/2025 7:18 AM CDT - 02/12/2025 11:59 PM CDT Hospital Encounter [facility] Respiratory [address] [place] [address] Systemic lupus erythematosus with other organ involvement, unspecified SLE type (HCC); Antiphospholipid antibody positive; Encounter for medication monitoring; Encounter for long-term (current) use of medications; Malignant melanoma of torso excluding breast (HCC) Discharge Disposition: Discharge to home or self care from Last 3 Months Allergies Active Allergy Reactions Criticality Noted Date Comments Amoxicillin Rash Medium 02/08/2018 Sulfa (Sulfonamide Antibiotics) Hives,Rash,Redness Medium Medications cyanocobalamin (Vitamin B-12) 1,000 mcg tabletIndications: Prevention of Vitamin B12 Deficiency Take 1 tablet (1,000 mcg total) by mouth daily Active ferrous sulfate ER 324 mg (65 mg iron) EC tabletIndications: Iron Deficiency Anemia Take 65 mg by mouth [...] a day 135 tablet 3 5 Active hydroxychloroquine (PLAQUENIL) 200 mg tabletIndications: Systemic lupus erythematosus with other organ involvement, unspecified SLE type (HCC),Antiphosphol ipid antibody positive,Encounter for medication monitoring,Encount er for long-term (current) use of medications,Malign ant melanoma of torso excluding breast (HCC) Take 1 tablet (200 mg total) by mouth 2 (two) times a day 60 tablet Active Active Problems Problem Noted Date Diagnosed [...] Found to be Macias +, +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 Was on AZA-stopped due to being stable. Has history of pleural effusion, was following with [facility], but needs to establish with a new [...] on file Legal Sex Female 6:34 AM K9 HANDLER Gender Identity Female 01/18/2022 11:01 PM CDT Sexual Orientation Straight 01/18/2022 11 :01 PM CDT Last Filed Vital Signs Vital Sign Reading Time Taken Comments Blood Pressure 110/78 12/14/2024 9:40 AM CDT Pulse 68 12/14/2024 9:40 AM CDT Temperature 36.5 C (97.7 F) 07/20/2023 7:58 AM K9 HANDLER Respiratory Rate 14 01/26/2023 8:26 AM CDT Oxygen Saturation 98% 02/12/2025 7:4 3 AM CDT albuterol neb with PFT per protocol Inhaled Oxygen Concentration - - Weight 109.3 kg (241 lb) 12/14/2024 9:4 0 AM CDT Height 162.6 cm (5' 4) 12/14/2024 9:40 AM CDT Body Mass Index 41.37 12/14/2024 9:40 AM CDT Plan of Treatment Not on file Procedures Procedure Name Priority Date/Time Associated Diagnosis Comments CT CHEST HIGH RESOLUTION WO CONTRAST Schedule Routine, Read Routine (OP Routine) 03/12/2025 4:45 PM CDT Systemic lupus erythematosus with other organ involvement, unspecified SLE type (HCC) Antiphospholipid antibody positive Abnormal PFT PULMONARY FUNCTION TEST (PFT) Routine 02/12/2025 8:05 AM CDT Systemic lupus erythematosus with other organ involvement, unspecified SLE type (HCC) Antiphospholipid antibody positive Encounter for medication monitoring Encounter for long-term (current) use of medications Malignant melanoma of torso excluding breast (HCC) from Last 3 Months Results * CT Chest High Resolution WO Contrast (03/12/2025 4:45 PM CDT) Anatomical Region Laterality Modality Chest N/A Computed Tomogra phy 03/21/2025 6:57 AM CDT Narrative 03/21/2025 7:02 AM CDT EXAM DESCRIPTION: CT CHEST HIGH RESOLUTION WO CONTRAST REASON FOR STUDY: Dyspnea, chronic, restrictive PFTs in patient with autoimmune disease Systemic lupus Restrictive PFT's Chronic s.o.b. TECHNIQUE: CT scan of the chest performed without intravenous contrast using helical scanning technique. Inspiratory and expiratory images were acquired. Prone inspiratory images were acquired. Reconstructed coronal and sagittal MPR images reviewed. All images stored on PACS. Automated exposure control was used as a dose optimization technique for this examination. COMPARISON: 03/12/2022 FINDINGS: LUNGS: No nodules or masses. No acute consolidation. No bronchial wall thickening or bronchiectasis. No architectural distortion or honeycombing. No reticulation. Ground-glass opacities in the right upper lobe persist. There is evidence of mild air trapping on the expiratory sequence.. PLEURA: There is persistent pleural thickening in the right lower lung with some associated pleural calcifications and a trace right pleural effusion noted. MEDIASTINUM/ALEX: No identified masses or abnormal nodes. There is a peripherally calcified 1.2 cm left thyroid cyst. No additional evaluation is recommended at this time. HEART: No pericardial effusion. CORONARY ARTERY CALCIFICATION: Present VASCULATURE: No aortic aneurysm. AXILLA: No adenopathy. CHEST WALL: No masses. No subcutaneous air. HARDWARE/LINES/TUBES: None. UPPER ABDOMEN: No significant abnormalities. MUSCULOSKELETAL: No acute findings. No hernias. OTHER: No other significant finding. IMPRESSION: 1. No septal thickening, honeycombing, architectural distortion, or traction bronchiectasis to suggest chronic interstitial lung disease. 2. Persistent ground-glass opacities in the right upper lobe. 3. Mosaic attenuation on the expiratory phase suggesting air trapping. 4. Persistent right pleural thickening with calcifications. Has the patient had prior asbestos exposure? THIS IS AN ELECTRONICALLY VERIFIED FINAL REPORT 03/21/2025 7:02 AM - Electronically signed by John Poe M.D. BS: MATILDE Report ID: [id number] Reading Location: [place] [address] Procedure Note John Poe MD - 03/21/2025 EXAM DESCRIPTION: CT CHEST HIGH RESOLUTION WO CONTRAST REASON FOR STUDY: Dyspnea, chronic, restrictive PFTs in patient with autoimmune disease Systemic lupus Restrictive PFT's Chronic s.o.b. TECHNIQUE: CT scan of the chest performed without intravenous contrastusing helical scanning technique. Inspiratory and expiratory images wereacquired. Prone inspiratory images were acquired. Reconstructed coronal andsagittal MPR images reviewed. All images stored on PACS. Automated exposurecontrol was used as a dose optimization technique for this examination. COMPARISON: 03/12/2022 FINDINGS: LUNGS: No nodules or masses. No acute consolidation. No bronchial wall thickening or bronchiectasis. No architectural distortion or honeycombing.No reticulation. Ground-glass opacities in the right upper lobe persist.There is evidence of mild air trapping on the expiratory sequence.. PLEURA: There is persistent pleural thickening in the right lower lungwith some associated pleural calcifications and a trace right pleural effusion noted. MEDIASTINUM/ALEX: No identified masses or abnormal nodes. There is a peripherally calcified 1.2 cm left thyroid cyst. No additional evaluationis recommended at this time. HEART: No pericardial effusion. CORONARY ARTERY CALCIFICATION: Present VASCULATURE: No aortic aneurysm. AXILLA: No adenopathy. CHEST WALL: No masses. No subcutaneous air. HARDWARE/LINES/TUBES: None. UPPER ABDOMEN: No significant abnormalities. MUSCULOSKELETAL: No acute findings. No hernias. OTHER: No other significant finding. IMPRESSION: 1. No septal thickening, honeycombing, architectural distortion, or traction bronchiectasis to suggest chronic interstitial lung disease. 2. Persistent ground-glass opacities in the right upper lobe. 3. Mosaic attenuation on the expiratory phase suggesting air trapping. 4. Persistent right pleural thickening with calcifications. Has thepatient had prior asbestos exposure? THIS IS AN ELECTRONICALLY VERIFIED FINAL REPORT 03/21/2025 7:02 AM - Electronically signed by John Poe M.D. BS: MATILDE Report ID: [id number] Reading Location: [place] [address] Ania Easley MD [facility] [place] PROCEDURES Final Result * Pulmonary Function Test - (02/12/2025 8:05 AM CDT) Pathologist [facility] FVC POST 1.40 L 02/12/2025 8:00 AM CDT [facility] FEV1 POST 1.15 L 02/12/2025 8:00 AM CDT [facility] [id number] 82.09 % 02/12/2025 8:00 AM CDT [facility] YVM05-84% POST 1.35 L/s 02/12/2025 8:00 AM CDT [facility] PEF POST 3.25 L/s 02/12/2025 8:00 AM CDT [facility] DLCOc SB 9.50 ml/(min*mm Hg) 02/12/2025 8:00 AM CDT [facility] DLCO/VA PRE 5.36 ml/(min*mm Hg*L) 02/12/2025 8:00 AM CDT [facility] VA 1.77 L 02/12/2025 8:00 AM CDT [facility] TLC PRE 2.79 L 02/12/2025 8:00 AM CDT [facility] VC PRE 1.40 L 02/12/2025 8:00 AM CDT [facility] IC PRE 1.02 L 02/12/2025 8:00 AM CDT [facility] FRC PL PRE 1.72 L 02/12/2025 8:00 AM CDT [facility] ERV PRE 0.32 L 02/12/2025 8:00 AM CDT [facility] RV PRE 1.40 L 02/12/2025 8:00 AM CDT [facility] RAW PRE 7.49 cmH2O*s/L 02/12/2025 8:00 AM CDT [facility] VTG 1.78 L 02/12/2025 8:00 AM CDT [facility] FVC PRE 1.40 L 02/12/2025 8:00 AM CDT [facility] FEV1 PRE 1.11 L 02/12/2025 8:00 AM CDT [facility] [id number] 79.30 % 02/12/2025 8:00 AM CDT [facility] YGA92-19% PRE 1.17 L/s 02/12/2025 8:00 AM CDT [facility] PEF PRE 4.03 L/s 02/12/2025 8:00 AM CDT [facility] Anatomical Region Laterality Modality PFT 02/12/2025 7:22 AM CDT Narrative 02/13/2025 1:59 PM CDT Spirometry shows proportionate decrease in FEV1 and FVC suggestive of restrictive pattern. No significant response to bronchodilators. Flow volume loop has normal configuration. Lung volumes show moderate restrictive ventilatory defect. Gas exchange capacity is moderately reduced . Electronically signed by Bruna Parra MD Ania Easley MD PFT ORDERABLES Fi nal Result from Last 3 Months Insurance [employer] [facility] Care Teams Environmental Safety Specialist Relationship Specialty Start Date End Date Mary Vazquez MD PCP - General Family Practice 03/05/20
--- OUTSIDE RECORDS SUMMARY | 2025-03-27 10:27 | XMS_ITS | Clinical Summary ---
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 Was on AZA-stopped due to being stable. 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 Sister has SLE with LN s/p Cytoxan (Mindy Arguello) Encounters Date Type Department Care Team Description 03/21/2025 Results Follow-Up [facility] Rheumatology at [facility] [address] [place] [address] Chest High Resolution WO Contrast 03/12/2025 4:23 PM CDT - 03/12/2025 11:59 PM CDT Hospital Encounter [facility] [address] [place] [address] Systemic lupus erythematosus with other organ involvement, unspecified SLE type (HCC); Antiphospholipid antibody positive; Abnormal PFT Discharge Disposition: Discharge to home or self care 03/09/2025 Telephone [facility] [address] [place] [address] Jhonny Daugherty 02/27/2025 Telephone [facility] Rheumatology at [place] [address] [place] [address] Chest Denied 02/13/2025 Results Follow-Up [facility] Rheumatology at [place] [address] [place] [phone] Ania Easley MD Pulmonary Function Test - 02/12/2025 7:18 AM CDT - 02/12/2025 11:59 PM CDT Hospital Encounter [facility] [address] [place] [address] Systemic lupus erythematosus with other organ involvement, unspecified SLE type (HCC); Antiphospholipid antibody positive; Encounter for medication monitoring; Encounter for long-term (current) use of medications; Malignant melanoma of torso excluding breast (HCC) Discharge Disposition: Discharge to home or self care from Last 3 Months Immunizations Immunization Administration [...] 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 [facility] IV + one node N O [...] on file Legal 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 BS: MATILDE Report ID: [id number] Reading Location: [place] [address] Procedure Note John Poe MD - 03/21/2025 [...] John Poe M.D. BS: MATILDE Report ID: [id number] Reading Location: [place] [address] us Ania Easley MD [facility] CT PROCEDURES Final Result * Pulmonary Function Test - (02/12/2025 8:05 AM CDT) FVC POST 1.40 L 02/12/2025 8:00 AM T [facility] FEV1 POST 1.15 L 02/12/2025 8:00 AM CDT [facility] [id number] 82.09 % 02/12/2025 8:00 AM CDT [facility] RJE91-76% POST 1.35 L/s 02/12/2025 8:00 AM CDT [facility] PEF POST 3.25 L/s 02/12/2025 8:00 AM CDT [facility] DLCOc SB 9.50 ml/(min*mm Hg) 02/12/2025 8:00 AM CDT [facility] DLCO/VA PRE 5.36 ml/(min*mm Hg*L) 02/12/2025 8:00 AM CDT [facility] VA 1.77 L 02/12/2025 8:00 AM CDT [facility] TLC PRE 2.79 L 02/12/2025 8:00 AM CDT [facility] VC PRE 1.40 L 02/12/2025 8:00 AM CDT [facility] IC PRE 1.02 L 02/12/2025 8:00 AM CDT [facility] FRC PL PRE 1.72 L 02/12/2025 8:00 AM CDT [facility] ERV PRE 0.32 L 02/12/2025 8:00 AM CDT [facility] RV PRE 1.40 L 02/12/2025 8:00 AM CDT [facility] RAW PRE 7.49 cmH2O*s/L 02/12/2025 8:00 AM CDT [facility] VTG 1.78 L 02/12/2025 8:00 AM T [facility] FVC PRE 1.40 L 02/12/2025 8:00 AM T [facility] FEV1 PRE 1.11 L 02/12/2025 8:00 AM T [facility] [id number] 79.30 % 02/12/2025 8:00 AM T [facility] YDE50-59% PRE 1.17 L/s 02/12/2025 8:00 AM T [facility] PEF PRE 4.03 L/s 02/12/2025 8:00 AM T [facility] Anatomical Region Laterality Modality PFT 02/12/2025 7:22 [...] nal Result from Last 3 Months Insurance [employer] [facility] Care Teams Building Inspection Engineer Relationship Specialty Start Date End Date Mary Vazquez MD PCP - General Family Practice 03/05/20
--- OUTSIDE RECORDS SUMMARY | 2025-03-27 10:27 | XMS_ITS | Encounter Summary ---
Author Organization [facility] Health Address [address] [place] [address] Care Team Providers Care Flatwork Finisher Hand Name Role Phone Artemio Gaviria MD Primary Care Provider [phone] Encounter Details Date Type Department Care Team (Late st Contact Info) Description 06/12/2021 Lab Requisition [facility] [address] [place] [id number] Renaldo Muniz MD [address] [place] [address] Social History Tobacco Use Types [...] AM CDT) Case Report Dermatopathology Report Case: [id number] Authorizing Provider: Renaldo Muniz MD Collected: 06/11/2021 12:00 AM Ordering Location: [facility] Received: 06/12/2021 01:27 PM Pathologist: Twila Helms MD Specimens: A) - Skin, left superior medial buttock B) - Skin, right flank in abdomen fold C) - Skin, right lateral lower abd fold 1 10:50 PM CDT DERMATOPATHOLOGY LABORATORY Final Diagnosis Specimen A. SKIN, left superior medial buttock: COMPOUND NEVUS WITH CONGENITAL FEATURES, IRRITATED (D22.5) Specimen B. 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 SKIN, right lateral lower abd fold: COMPOUND MELANOCYTIC NEVUS, IRRITATED (D22.5) 10:50 PM CDT DERMATOPATHOLOGY LABORATORY at 2250 CDT Clinical History A-C: R/O dys nevus 10:50 [...] shave biopsy measuring 18x5x1 mm. Jar 0. 1 10:50 PM CDT DERMATOPATHOLOGY LABORATORY Microscopic Description [...] purposes. Billing Codes Specimen Charges Stain Charges 43407 94044 64017 1 1 1 16791 15827 71008 1 1 1 10:50 PM CDT DERMATOPATHOLOGY [...] PATHOLOGY/CYTOLOGY ORD ERABLES Final Result DERMATOPATHOLOGY LABORATORY [facility] - Department of Dermatology [facility] Medicine [address] [place] [address], [address]rd [place] [address], [facility] [phone] documented in this encounter Visit Diagnoses Not on filedocumented in this encounter Care Teams Flatwork Finisher Hand Relationship Specialty Start Date End Date Artemio Gaviria MD [address] [place] [address] PCP - General 06/26/19 documented as of this encounter
--- OUTSIDE RECORDS SUMMARY | 2025-03-27 10:28 | XMS_ITS | Clinical Summary ---
Author Organization [facility] Address [address] [place] [address] Care Team Providers Care Water Meter Reader Name Role Phone Ary Wooten DATA INTEGRATION ARCHITECT Primary Care Provider [phone] Social History Tobacco Use Types Packs/Day Years [...] topic Meningococcal Vaccine Aged Out No trace danilele eligible based on patient's age to complete this topic RSV Immunizations Under 20 Months Aged Out No longer eligible based on patient's age to complete this topic Insurance MEDICAID Care Teams Water Meter Reader Relationship Specialty Start Date End Date Ary Wooten FNP [facility] [place] [address] PCP - General NURSE PRACTITIONER 04/04/24
--- OUTSIDE RECORDS SUMMARY | 2025-03-27 10:28 | XMS_ITS | Encounter Summary ---
Author Organization [facility] Health Address [address] [place] [address] Care Team Providers Care Saw Repairer Name Role Phone Artemio Gaviria MD Primary Care Provider [phone] Encounter Details Date Type Department Care Team (Late st Contact Info) Description 12/21/2019 Lab Requisition [facility] [address] [place] [phone] Renaldo Muniz MD [address] [place] [address] Social History Tobacco Use Types [...] AM CDT) Case Report Dermatopathology Report Case: [id number] Authorizing Provider: Renaldo Muniz MD Collected: 12/20/2019 12:00 AM Ordering Location: [facility] Received: 12/21/2019 12:58 PM Pathologist: Reny Clark MD Specimens: A) - Skin, left lat upper back above scar B) - Skin, left upper back above scar C) - Skin, left med upper back above scar D) - Skin, left paraspinal mid upper back 0 2:28 PM CDT DERMATOPATHOLOGY LABORATORY Final [...] WITH ARCHITECTURAL DISORDER) (D22.5) 0 2:28 PM CDT DERMATOPATHOLOGY LABORATORY at 1428 CDT Clinical History A-D: R/O dys nevus. 0 2:28 PM CDT DERMATOPATHOLOGY LABORATORY Gross Description Specimen A: Received is one formalin filled container labeled with the patient's name and designated left lat upper back above scar. The specimen consists of a shave biopsy measuring 1s4b9el. Jar 0. Specimen B: Received is one formalin filled container labeled with the patient's name and designated left upper back above scar. The specimen consists of a shave biopsy measuring [id number]. Jar 0. Specimen C: Received is one formalin filled container labeled with the patient's name and designated left med upper back above scar. The specimen consists of a shave biopsy measuring [id number]. Jar 0. Specimen D: Received is one formalin filled container. The specimen consists of a shave biopsy measuring 9u2u9rz. Jar 0. 0 2:28 PM CDT DERMATOPATHOLOGY [...] determined by the Dermatopathology Laboratory at [facility], directed by Dr. Lashanda Parks. These tests need not be, and therefore are not, approved by the [place] Food and Drug Administration. The tests are used for clinical purposes. Billing Codes Specimen Charges Stain Charges 88118 32134 84551 87911 1 1 1 1 0 2:28 PM [...] DERMATOPATHOLOGY LABORATORY [facility] - Department of Dermatology [address] [place] [address] [address] [phone] documented in this encounter Visit Diagnoses Not on filedocumented in this encounter Care Teams Saw Repairer Relationship Specialty Start Date End Date Artemio Gaviria MD [address] [place] [address] PCP - General 06/26/19 documented as of this encounter
--- OUTSIDE RECORDS SUMMARY | 2025-03-27 10:28 | XMS_ITS | Clinical Summary ---
Author Organization [facility] surjit [facility] Address [address] [place] [address] [place] [address] Care Team Providers Care Aluminum Can Collector Name Role Phone Mary Vazquez MD Primary Care Provider Allergies Active Allergy Reactions Criticality Noted Date Comments Amoxicillin Rash Medium 02/08/2018 Penicillins Rash Low 02/02/2019 Sulfa (Sulfonamide Antibiotics) Hives,Rash,Unknown High 01/31/2019 Sulfamethoxazole-Trimethoprim Rash Low 2018 Medications triamterene-hyd roCHLOROthiazid e (DYAZIDE) 37.5-25 mg capsule Take 1 Capsule by 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 Pulse 98 07/16/2022 3:27 PM ACADEMIC AFFAIRS VICE PRESIDENT Temperature 37.2 C (98.9 F) 07/16/2022 3:27 PM ACADEMIC AFFAIRS VICE PRESIDENT Respiratory Rate 16 07/16/2022 3:27 PM ACADEMIC AFFAIRS VICE PRESIDENT Oxygen Saturation 96% 07/16/2022 3:27 PM ACADEMIC AFFAIRS VICE PRESIDENT Inhaled Oxygen Concentration - - Weight 134.9 kg (297 lb 6.4 oz) 07/16/2022 3:27 PM ACADEMIC AFFAIRS VICE PRESIDENT Height 154.9 cm (5' 1) 01/15/2022 3:09 PM CDT Body Mass Index [...] Q 5 years 2019 INFLUENZA VACCINE (#1) 2025 2, 06/19/2020, 06/18/2020, Additional history exists Insurance [employer] TRADITIONAL Care Teams Aluminum Can Collector Relationship Specialty Start Date End Date Mary Vazquez MD [address] [place] [address] PCP - General Family Practice 06/30/19
--- OUTSIDE RECORDS SUMMARY | 2025-03-27 10:28 | XMS_ITS | Encounter Summary ---
Author Organization [facility] Health Address [address] [facility] [place] [address] Care Team Providers Care Keller Machine Operator Name Role Phone Artemio Gaviria MD Primary Care Provider [phone] Encounter Details Date Type Department Care Team (Late st Contact Info) Description 10/12/2019 Lab Requisition [facility] Lab [address] [facility] [place] [phone] Renaldo Muniz MD [address] [place] [address] Social History Tobacco Use Types [...] Comments DERMATOPATHOLOGY Routine 10/11/2019 12:0 0 AM [facility] documented in this encounter Results * DERMATOPATHOLOGY (10/11/2019 12:00 AM [facility]) Case Report Dermatopathology Report Case: [id number] Authorizing Provider: Renaldo Muniz MD Collected: 10/11/2019 12:00 AM Ordering Location: [facility] Lab Received: 10/12/2019 12:56 PM Pathologist: Reny Clark MD Specimens: A) - Skin, right parapsinal lower back B) - Skin, right mid lat back C) - Skin, right lower back 0 2:11 PM [facility] Final Diagnosis Specimen A. SKIN, [...] WITH ARCHITECTURAL DISORDER) (D22.5) 0 2:11 PM [facility] at 1411 RRTS Clinical History A-C: R/O dysplastic lentinginous nevus 0 2:11 PM [facility] Gross Description Specimen A: Received [...] 10x7x1 mm. Jar 0. 0 2:11 PM [facility] Microscopic Description Specimen A. SKIN, [...] or Compound Dysplastic Nevus) 0 2:11 PM [facility] DERMATOPATHOLOGY LABORATORY Disclaimer An external and internal positive and negative controls are appropriate for the histochemical, immunohistochemical and immunofluorescence stain(s) in this case (if any), except where stated explicitly. The performance characteristics of the stain(s) cited in this report were developed and its performance characteristic determined by the Dermatopathology Laboratory at [facility], directed by Dr. Lashanda Parks. These tests need not be, and therefore are not, approved by the [place] Food and Drug Administration. The tests are used for clinical purposes. Billing Codes Specimen Charges Stain Charges 80521 39101 63167 1 1 1 0 2:11 PM [facility] DERMATOPATHOLOGY LABORATORY Embedded Images 0 2:11 PM [facility] DERMATOPATHOLOGY LABORATORY Pathology/Cytology TISSUE SPECIMEN FROM SKIN / Unknown 10/11/2019 10/12/2019 12:56 PM [facility] Miscellaneous samples (specimen) TISSUE SPECIMEN FROM SKIN / Unknown 10/11/2019 10/12/2019 12:56 PM [facility] Miscellaneous samples (specimen) TISSUE SPECIMEN FROM SKIN / Unknown 10/11/2019 10/12/2019 12:56 PM [facility] Renaldo Muniz MD LAB - PATHOLOGY/CYTOLOGY ORD ERABLES Final Result DERMATOPATHOLOGY LABORATORY [facility] - Department of Dermatology [facility] [facility], 5th [place] [address], [facility] [phone] documented in this encounter Visit Diagnoses Not on filedocumented in this encounter Care Teams Keller Machine Operator Relationship Specialty Start Date End Date Artemio Gaviria [place] [address] [place] [address] PCP - General 10/28/19 documented as of this encounter
[2025-03-27 12:58] LABS: Hematocrit 43.9 % (37.0-47.0); Hemoglobin 13.6 g/dL (12.0-15.0); Immature Granulocyte Percent A 0.3 % (0-0.5); Lymphocytes Absolute Auto 0.96 K/mm3 (0.9-3.2); Mean Corpuscular HGB Conc 31.0 g/dl (32-36); Mean Corpuscular Hemoglobin 26.5 pg (26-34); Mean Corpuscular Volume 85.4 fl (80-100); Nucleated Red Blood Cells Absolute Auto 0.000 K/mm3 (0.0-0.012); Nucleated Red Blood Cells Perc 0.0 % (0.0-0.2); Platelet Count Result 165 k/mm3 (150-375); Red Blood Count 5.14 M/mm3 (4.2-5.4); White Blood Count 3.5 K/mm3 (4.5-10.0)
[2025-03-27 13:17] LABS: Alanine Aminotransferase 22 U/L (6-35); Albumin Level 4.3 g/dL (3.5-5.1); Alkaline Phosphatase 91 U/L (38-126); Anion Gap 9 mmol/L (4-12); Aspartate Amino Transferase 36 U/L (14-36); Bilirubin,Total 0.7 mg/dL (0.2-1.3); Blood Urea Nitrogen 15 mg/dL (7-17); Calcium 9.4 mg/dL (8.4-10.2); Carbon Dioxide 29 mmol/L (22-30); Chloride 101 mmol/L (98-107); Cholesterol 130 mg/dL (0-200); Estimated Glomerular Filt Rate > 60; Glucose 90 mg/dL (65-110); HDL Direct 37 mg/dL; Potassium 3.8 mmol/L (3.4-5.0); Sodium 139 mmol/L (137-145); Total Protein 8.6 g/dL (6.3-8.2); Triglycerides 90 mg/dL (<150)
[2025-03-27 13:56] LABS: Thyroid Stimulating Hormone Reflex 0.323 uIU/mL (0.465-4.68)
[2025-03-27 20:28] LABS: Free T4 Free Thyroxine Reflex 1.90 ng/dL (0.78-2.19)
[2025-03-27 20:44] LABS: Hemoglobin A1C 5.4 % (<5.7)
[2025-03-28 05:32] LABS: Total Triiodothyronine (T3) 1.29 NG/ML (0.82-1.58)
== END 2025-03-27 10:15 | disposition home or self-care (01) ==
LOC: ANHGOSHLAB 10:15
PROVIDERS: PCP Family Medicine; Visit Provider Nurse Practitioner Family
DX: R73.03 Prediabetes (principal); I10 Essential (primary) hypertension
CPT/HCPCS: 36415; 80053; 80061; 83036; 84439; 84443; 84480; 85025